=== PATIENT | male | born 1950 | race Caucasian/White ===

== ENCOUNTER → 2020-02-09 08:25 | Outpatient (BNVA) | payer MEDICARE, SELFPAY | PROVIDERS: PCP Internal Medicine Medical Oncology; Visit Provider Urology | DX: C61 Malignant neoplasm of prostate (principal); N39.41 Urge incontinence; Z79.899 Other long term (current) drug therapy | CPT/HCPCS: 99214 ==

== ENCOUNTER 2020-03-01 09:47 | Outpatient (REF) | payer MEDICARE, SELFPAY ==
[2020-03-01 10:58] LABS: MANUAL DIFF FLAG NO
[2020-03-01 11:02] LABS: Basophils Percent Auto 0.4 % (0-2); Eosinophils Absolute Auto 0.4 X10*3/uL (0.0-0.4); Eosinophils Percent Auto 5.6 % (0-4); Hematocrit 35.3 % (42-52); Hemoglobin 11.2 g/dl (14.0-18.0); Imm Gran Abs Auto 0.02 X10*3/uL (0.00-0.03); Imm Gran Pct Auto 0.3 % (0.0-0.4); Lymphocytes Absolute Auto 1.3 X10*3/uL (1.2-4.9); Lymphocytes Percent Auto 19.5 % (20-40); Mean Corpuscular HGB Conc 31.7 g/dl (31.0-36.0); Mean Corpuscular Hemoglobin 28.8 pg (27.0-33.0); Mean Corpuscular Volume 90.7 fL (80-98); Mean Platelet Volume 9.9 fL (9.4-12.4); Monocytes Absolute Auto 0.5 X10*3/uL (0.1-1.2); Monocytes Percent Auto 7.4 % (2-11); Neutrophils Absolute Auto 4.5 X10*3/uL (2.0-8.3); Neutrophils Percent Auto 66.8 % (45-73); Platelet Count 259 X10*3/uL (160-400); Red Blood Count 3.89 X10*6/uL (4.60-5.80); Red Cell Distribution Width 13.3 % (11.0-16.0); White Blood Count 6.7 X10*3/uL (4.8-10.8)
[2020-03-01 11:40] LABS: Albumin Level 4.5 g/dL (3.5-5.0); Anion Gap 14 (12-20); Blood Urea Nitrogen 21 mg/dL (9-16); Calcium 9.2 mg/dL (8.4-10.2); Carbon Dioxide 28 mmol/L (22-29); Chloride 103 mmol/L (96-108); Estimated Glomerular Filt Rate 44; Magnesium 2.4 mg/dL (1.6-2.6); Phosphorus 4.3 mg/dL (2.7-4.5); Sodium 140 mmol/L (135-145)
[2020-03-02 17:26] LABS: Calcium (PTHI) 9.8 mg/dL (8.6-10.3); PTHI 40 pg/mL (14-64)
== END 2020-03-01 09:48 | disposition home or self-care (01) ==
LOC: HO.LAB 09:47
PROVIDERS: PCP Internal Medicine Medical Oncology; Visit Provider Internal Medicine Hypertension Specialist
DX: I13.0 Hypertensive heart and chronic kidney disease with heart failure and stage 1 through stage 4 chronic kidney disease, or unspecified chronic kidney disease (principal); N18.30 Chronic kidney disease, stage 3 unspecified
CPT/HCPCS: 36415; 80051; 82040; 82310; 82565; 83735; 83970; 84100; 84520; 85025

== ENCOUNTER 2020-04-20 07:30 | Outpatient (REF) | payer MEDICARE, SELFPAY ==
[2020-04-20 08:17] LABS: MANUAL DIFF FLAG NO
[2020-04-20 08:23] LABS: Basophils Percent Auto 0.5 % (0-2); Eosinophils Absolute Auto 0.4 X10*3/uL (0.0-0.4); Eosinophils Percent Auto 4.8 % (0-4); Hematocrit 34.7 % (42-52); Hemoglobin 10.9 g/dl (14.0-18.0); Imm Gran Abs Auto 0.01 X10*3/uL (0.00-0.03); Imm Gran Pct Auto 0.1 % (0.0-0.4); Lymphocytes Absolute Auto 1.7 X10*3/uL (1.2-4.9); Lymphocytes Percent Auto 22.7 % (20-40); Mean Corpuscular HGB Conc 31.4 g/dl (31.0-36.0); Mean Corpuscular Hemoglobin 28.5 pg (27.0-33.0); Mean Corpuscular Volume 90.6 fL (80-98); Monocytes Absolute Auto 0.6 X10*3/uL (0.1-1.2); Monocytes Percent Auto 8.5 % (2-11); Neutrophils Absolute Auto 4.8 X10*3/uL (2.0-8.3); Neutrophils Percent Auto 63.4 % (45-73); Platelet Count 256 X10*3/uL (160-400); Red Blood Count 3.83 X10*6/uL (4.60-5.80); Red Cell Distribution Width 13.1 % (11.0-16.0); White Blood Count 7.5 X10*3/uL (4.8-10.8)
[2020-04-20 09:03] LABS: Alanine Aminotransferase 8 U/L (0-40); Albumin Level 4.3 g/dL (3.5-5.0); Alkaline Phosphatase 73 U/L (39-117); Anion Gap 11 (12-20); Aspartate Amino Transferase 14 U/L (5-37); Bilirubin Total 0.4 mg/dL (0.0-1.0); Blood Urea Nitrogen 25 mg/dL (9-16); Calcium 9.1 mg/dL (8.4-10.2); Carbon Dioxide 28 mmol/L (22-29); Chloride 109 mmol/L (96-108); Cholesterol 167 mg/dL; Estimated Glomerular Filt Rate 42; Glucose Fasting 103 mg/dL (60-99); HDL Cholesterol 51 mg/dL; LDL Cholesterol Calculated 92 mg/dl; Potassium 4.4 mmol/l (3.3-5.1); Sodium 144 mmol/L (135-145); Total Protein 6.8 g/dL (6.5-8.0); Triglycerides 123 mg/dL
[2020-04-20 09:33] LABS: PSA,Total (Free>4and<10) < 0.05 ng/mL (0.00-4.00)
== END 2020-04-20 07:31 | disposition home or self-care (01) ==
LOC: HO.LAB 07:30
PROVIDERS: Visit Provider Internal Medicine Medical Oncology
DX: D50.9 Iron deficiency anemia, unspecified (principal); I10 Essential (primary) hypertension; C61 Malignant neoplasm of prostate
CPT/HCPCS: 36415; 80053; 80061; 84153; 85025

== ENCOUNTER 2020-04-23 11:30 | Outpatient (REF) | payer MEDICARE, SELFPAY ==
[2020-04-23 13:34] LABS: Prostate Specific Antigen < 0.05 ng/mL (<0.05-4.0)
== END 2020-04-23 11:31 | disposition home or self-care (01) ==
LOC: HO.LAB 11:30
PROVIDERS: PCP Internal Medicine Medical Oncology; Visit Provider Urology
DX: Z85.46 Personal history of malignant neoplasm of prostate (principal); Z12.5 Encounter for screening for malignant neoplasm of prostate
CPT/HCPCS: 84153

== ENCOUNTER → 2020-05-01 13:20 | Outpatient (BNVA) | payer MEDICARE, SELFPAY | PROVIDERS: PCP Family Medicine Adult Medicine; Referring Provider Family Medicine Adult Medicine; Visit Provider Urology | DX: C61 Malignant neoplasm of prostate (principal); N39.41 Urge incontinence; Z92.3 Personal history of irradiation | CPT/HCPCS: 96402; 99212; J9217 ==

== ENCOUNTER 2020-07-23 07:26 | Outpatient (REF) | payer MEDICARE, SELFPAY ==
[2020-07-23 08:11] LABS: MANUAL DIFF FLAG NO
[2020-07-23 08:16] LABS: Basophils Percent Auto 0.6 % (0-2); Eosinophils Absolute Auto 0.3 X10*3/uL (0.0-0.4); Eosinophils Percent Auto 4.4 % (0-4); Hematocrit 37.8 % (42-52); Hemoglobin 11.6 g/dl (14.0-18.0); Imm Gran Abs Auto 0.04 X10*3/uL (0.00-0.03); Imm Gran Pct Auto 0.6 % (0.0-0.4); Lymphocytes Absolute Auto 1.5 X10*3/uL (1.2-4.9); Lymphocytes Percent Auto 21.9 % (20-40); Mean Corpuscular HGB Conc 30.7 g/dl (31.0-36.0); Mean Corpuscular Hemoglobin 27.6 pg (27.0-33.0); Mean Corpuscular Volume 89.8 fL (80-98); Mean Platelet Volume 9.7 fL (9.4-12.4); Monocytes Absolute Auto 0.5 X10*3/uL (0.1-1.2); Monocytes Percent Auto 8.1 % (2-11); Neutrophils Absolute Auto 4.3 X10*3/uL (2.0-8.3); Neutrophils Percent Auto 64.4 % (45-73); Platelet Count 252 X10*3/uL (160-400); Red Blood Count 4.21 X10*6/uL (4.60-5.80); Red Cell Distribution Width 13.3 % (11.0-16.0); White Blood Count 6.6 X10*3/uL (4.8-10.8)
[2020-07-23 08:40] LABS: Anion Gap 15 (12-20); Blood Urea Nitrogen 24 mg/dL (9-16); Calcium 9.3 mg/dL (8.4-10.2); Carbon Dioxide 28 mmol/L (22-29); Chloride 106 mmol/L (96-108); Estimated Glomerular Filt Rate 40; Potassium 5.3 mmol/L (3.3-5.1); Sodium 144 mmol/L (135-145)
[2020-07-23 09:16] LABS: Prostate Specific Antigen < 0.05 ng/mL (<0.05-4.0)
== END 2020-07-23 07:27 | disposition home or self-care (01) ==
LOC: HO.LAB 07:26
PROVIDERS: Absent Provider Urology; PCP Internal Medicine Medical Oncology; Visit Provider Internal Medicine Hypertension Specialist
DX: C61 Malignant neoplasm of prostate (principal); I13.0 Hypertensive heart and chronic kidney disease with heart failure and stage 1 through stage 4 chronic kidney disease, or unspecified chronic kidney disease; N18.9 Chronic kidney disease, unspecified; D63.1 Anemia in chronic kidney disease
CPT/HCPCS: 36415; 80051; 82310; 82565; 84153; 84520; 85025

== ENCOUNTER → 2020-08-07 08:33 | Outpatient (BNVA) | payer MEDICARE, SELFPAY | PROVIDERS: PCP Internal Medicine Medical Oncology; Visit Provider Urology | DX: N39.41 Urge incontinence (principal); C61 Malignant neoplasm of prostate | CPT/HCPCS: 51798; 99212 ==

== ENCOUNTER 2020-08-14 07:22 | Outpatient (REF) | payer MEDICARE, SELFPAY ==
[2020-08-14 08:05] LABS: MANUAL DIFF FLAG NO
[2020-08-14 08:12] LABS: Basophils Absolute Auto 0.1 X10*3/uL (0.0-0.2); Basophils Percent Auto 0.7 % (0-2); Eosinophils Absolute Auto 0.4 X10*3/uL (0.0-0.4); Eosinophils Percent Auto 5.2 % (0-4); Hematocrit 38.4 % (42-52); Imm Gran Abs Auto 0.03 X10*3/uL (0.00-0.03); Imm Gran Pct Auto 0.4 % (0.0-0.4); Lymphocytes Absolute Auto 1.4 X10*3/uL (1.2-4.9); Lymphocytes Percent Auto 19.1 % (20-40); Mean Corpuscular HGB Conc 31.3 g/dl (31.0-36.0); Mean Corpuscular Hemoglobin 28.2 pg (27.0-33.0); Mean Corpuscular Volume 90.4 fL (80-98); Mean Platelet Volume 9.9 fL (9.4-12.4); Monocytes Absolute Auto 0.5 X10*3/uL (0.1-1.2); Monocytes Percent Auto 6.5 % (2-11); Neutrophils Absolute Auto 4.9 X10*3/uL (2.0-8.3); Neutrophils Percent Auto 68.1 % (45-73); Platelet Count 247 X10*3/uL (160-400); Red Blood Count 4.25 X10*6/uL (4.60-5.80); Red Cell Distribution Width 13.3 % (11.0-16.0); White Blood Count 7.1 X10*3/uL (4.8-10.8)
[2020-08-14 08:27] LABS: Alanine Aminotransferase 11 U/L (0-40); Albumin Level 4.3 g/dL (3.5-5.0); Alkaline Phosphatase 69 U/L (39-117); Anion Gap 15 (12-20); Aspartate Amino Transferase 13 U/L (5-37); Bilirubin Total 0.2 mg/dL (0.0-1.0); Blood Urea Nitrogen 27 mg/dL (9-16); Calcium 8.9 mg/dL (8.4-10.2); Carbon Dioxide 23 mmol/L (22-29); Chloride 109 mmol/L (96-108); Cholesterol 169 mg/dL; Estimated Glomerular Filt Rate 42; Glucose Fasting 106 mg/dL (60-99); HDL Cholesterol 57 mg/dL; LDL Cholesterol Calculated 88 mg/dl; Potassium 4.8 mmol/L (3.3-5.1); Sodium 142 mmol/L (135-145); Total Protein 6.8 g/dL (6.5-8.0); Triglycerides 121 mg/dL
[2020-08-14 08:55] LABS: Prostate Specific Antigen < 0.05 ng/mL (<0.05-4.0)
== END 2020-08-14 07:23 | disposition home or self-care (01) ==
LOC: HO.LAB 07:22
PROVIDERS: PCP Internal Medicine Medical Oncology; Visit Provider Internal Medicine Medical Oncology
DX: D50.9 Iron deficiency anemia, unspecified (principal); I10 Essential (primary) hypertension; C61 Malignant neoplasm of prostate; Z12.5 Encounter for screening for malignant neoplasm of prostate
CPT/HCPCS: 36415; 80053; 80061; 84153; 85025

== ENCOUNTER 2020-10-09 07:04 | Outpatient (REF) | payer MEDICARE, SELFPAY ==
[2020-10-09 09:14] LABS: Prostate Specific Antigen < 0.05 ng/mL (<0.05-4.0)
[2020-10-15 11:27] LABS: Testosterone, Total 2 ng/dL (250-1100)
== END 2020-10-09 07:05 | disposition home or self-care (01) ==
LOC: HO.LAB 07:04
PROVIDERS: PCP Internal Medicine Medical Oncology; Visit Provider Urology
DX: C61 Malignant neoplasm of prostate (principal); E29.1 Testicular hypofunction; N40.1 Benign prostatic hyperplasia with lower urinary tract symptoms; N13.8 Other obstructive and reflux uropathy
CPT/HCPCS: 36415; 84153; 84403

== ENCOUNTER → 2020-10-25 08:54 | Outpatient (BNVA) | payer MEDICARE, SELFPAY | PROVIDERS: PCP Internal Medicine Medical Oncology; Visit Provider Urology | DX: C61 Malignant neoplasm of prostate (principal); R39.15 Urgency of urination | CPT/HCPCS: 99212 ==

== ENCOUNTER 2020-12-24 06:40 | Outpatient (REF) | payer MEDICARE, SELFPAY ==
[2020-12-24 07:00] LABS: MANUAL DIFF FLAG NO
[2020-12-24 07:16] LABS: Basophils Percent Auto 0.2 % (0-2); Eosinophils Absolute Auto 0.4 X10*3/uL (0.0-0.4); Eosinophils Percent Auto 4.6 % (0-4); Hematocrit 34.6 % (42-52); Hemoglobin 10.9 g/dl (14.0-18.0); Imm Gran Abs Auto 0.05 X10*3/uL (0.00-0.03); Imm Gran Pct Auto 0.5 % (0.0-0.4); Lymphocytes Absolute Auto 1.5 X10*3/uL (1.2-4.9); Lymphocytes Percent Auto 15.3 % (20-40); Mean Corpuscular HGB Conc 31.5 g/dl (31.0-36.0); Mean Corpuscular Hemoglobin 28.5 pg (27.0-33.0); Mean Corpuscular Volume 90.6 fL (80-98); Mean Platelet Volume 9.9 fL (9.4-12.4); Monocytes Absolute Auto 1.3 X10*3/uL (0.1-1.2); Monocytes Percent Auto 13.6 % (2-11); Neutrophils Absolute Auto 6.2 X10*3/uL (2.0-8.3); Neutrophils Percent Auto 65.8 % (45-73); Platelet Count 251 X10*3/uL (160-400); Red Blood Count 3.82 X10*6/uL (4.60-5.80); Red Cell Distribution Width 13.2 % (11.0-16.0); White Blood Count 9.5 X10*3/uL (4.8-10.8)
[2020-12-24 07:34] LABS: Alanine Aminotransferase 9 U/L (0-40); Albumin Level 4.1 g/dL (3.5-5.0); Alkaline Phosphatase 76 U/L (39-117); Anion Gap 15 (12-20); Aspartate Amino Transferase 13 U/L (5-37); Bilirubin Total 0.5 mg/dL (0.0-1.0); Blood Urea Nitrogen 33 mg/dL (9-16); Calcium 9.4 mg/dL (8.4-10.2); Carbon Dioxide 24 mmol/L (22-29); Chloride 111 mmol/L (96-108); Cholesterol 138 mg/dL; Estimated Glomerular Filt Rate 30; Glucose Fasting 106 mg/dL (60-99); HDL Cholesterol 44 mg/dL; LDL Cholesterol Calculated 61 mg/dl; Potassium 5.3 mmol/L (3.3-5.1); Sodium 145 mmol/L (135-145); Total Protein 6.6 g/dL (6.5-8.0); Triglycerides 166 mg/dL
[2020-12-24 08:08] LABS: Prostate Specific Antigen < 0.05 ng/mL (<0.05-4.0)
== END 2020-12-24 06:41 | disposition home or self-care (01) ==
LOC: HO.LAB 06:40
PROVIDERS: PCP Internal Medicine Medical Oncology; Visit Provider Internal Medicine Medical Oncology
DX: Z12.5 Encounter for screening for malignant neoplasm of prostate (principal); C61 Malignant neoplasm of prostate; D50.9 Iron deficiency anemia, unspecified; E66.3 Overweight
CPT/HCPCS: 36415; 80053; 80061; 84153; 85025

== ENCOUNTER 2020-12-31 06:45 | Outpatient (REF) | payer MEDICARE, SELFPAY ==
[2020-12-31 07:56] LABS: Anion Gap 15 (12-20); Blood Urea Nitrogen 22 mg/dL (9-16); Calcium 9.2 mg/dL (8.4-10.2); Carbon Dioxide 24 mmol/L (22-29); Chloride 109 mmol/L (96-108); Estimated Glomerular Filt Rate 33; Potassium 5.2 mmol/L (3.3-5.1); Sodium 143 mmol/L (135-145)
== END 2020-12-31 06:46 | disposition home or self-care (01) ==
LOC: HO.LAB 06:45
PROVIDERS: PCP Internal Medicine Medical Oncology; Visit Provider Internal Medicine Hypertension Specialist
DX: I12.9 Hypertensive chronic kidney disease with stage 1 through stage 4 chronic kidney disease, or unspecified chronic kidney disease (principal); N18.31 Chronic kidney disease, stage 3a
CPT/HCPCS: 36415; 80051; 82310; 82565; 84520

== ENCOUNTER 2021-01-15 11:57 | Outpatient (REF) | payer MEDICARE, SELFPAY ==
[2021-01-15 14:16] LABS: Prostate Specific Antigen < 0.05 ng/mL (<0.05-4.0)
[2021-01-20 22:27] LABS: Testosterone, Total <1 ng/dL (250-1100)
== END 2021-01-15 11:58 | disposition home or self-care (01) ==
LOC: HO.LAB 11:57
PROVIDERS: PCP Internal Medicine Medical Oncology; Visit Provider Urology
DX: Z12.5 Encounter for screening for malignant neoplasm of prostate (principal); C61 Malignant neoplasm of prostate
CPT/HCPCS: 36415; 84153; 84403

== ENCOUNTER 2021-01-21 14:14 | Outpatient (REF) | payer MEDICARE, SELFPAY ==
--- NOTE | ~2021-01-21 | US_ITS ---
EXAMINATION: US RETROPERITONEAL LIMITED (RENAL ONLY) CLINICAL INFORMATION: Chronic kidney disease, stage 3. COMPARISON: Renals only ultrasound dated 06/13/2019. CT abdomen and pelvis with contrast dated 01/27/2012. TECHNIQUE: Real-time imaging of the kidneys. FINDINGS: RIGHT KIDNEY: 10.1 x 4.9 x 5.3 cm (SAG x AP x TRV). The kidney is normal in size, contour, and echogenicity. Renal cortical thickness is normal. No renal calculi or hydronephrosis. There are multiple anechoic cysts. The largest cyst measures 3.8 x 3.3 x 2.3 cm. Is mild pelvic fullness. LEFT KIDNEY: 9.4 x 4.6 x 5.5 cm (SAG x AP x TRV). The kidney is normal in size, contour, and echogenicity. Renal cortical thickness is normal. No renal calculi or hydronephrosis. There are multiple anechoic cyst. The largest cyst midpole measures 2.6 x 2.1 x 2.4 cm. There is mild pelvic fullness versus hydronephrosis. US/US renal BI IMPRESSION: Mild bilateral pelvic fullness. Multiple anechoic renal cysts.
== END 2021-01-21 14:15 | disposition home or self-care (01) ==
LOC: HO.US 14:14
PROVIDERS: Visit Provider Psychiatry & Neurology Neurology
DX: N18.32 Chronic kidney disease, stage 3b (principal)
CPT/HCPCS: 76775

== ENCOUNTER 2021-01-25 06:41 | Outpatient (REF) | payer MEDICARE, SELFPAY ==
[2021-01-25 08:42] LABS: Prostate Specific Antigen < 0.05 ng/mL (<0.05-4.0)
[2021-01-30 14:06] LABS: Testosterone, Total 8 ng/dL (250-1100)
== END 2021-01-25 06:42 | disposition home or self-care (01) ==
LOC: HO.LAB 06:41
PROVIDERS: PCP Internal Medicine Medical Oncology; Visit Provider Urology
DX: Z12.5 Encounter for screening for malignant neoplasm of prostate (principal); C61 Malignant neoplasm of prostate
CPT/HCPCS: 36415; 84153; 84403

== ENCOUNTER → 2021-01-29 09:24 | Outpatient (BNVA) | payer MEDICARE, SELFPAY | PROVIDERS: PCP Internal Medicine Medical Oncology; Visit Provider Urology | DX: C61 Malignant neoplasm of prostate (principal); N39.41 Urge incontinence | CPT/HCPCS: Q3014 ==

== ENCOUNTER 2021-02-19 11:34 | Emergency (ER) | payer MEDICARE, SELFPAY ==
--- NOTE | 2021-02-19 | ECG_ITS ---
Test Reason : dizziness Blood Pressure : / mmHG Vent. Rate : 113 BPM Atrial Rate : 113 BPM P-R Int : 120 ms QRS Dur : 086 ms QT Int : 328 ms P-R-T Axes : 054 063 016 degrees QTc Int : 449 ms Sinus tachycardia RSR' or QR pattern in V1 suggests right ventricular conduction delay Nonspecific ST abnormality Abnormal ECG Heart rate has increased Referred By: Generic ED Physician Electronically Signed By:NGA MONTANA MD
--- NOTE | 2021-02-19 | ECG_ITS ---
Test Reason : WEAKNESS Blood Pressure : / mmHG Vent. Rate : 112 BPM Atrial Rate : 112 BPM P-R Int : 122 ms QRS Dur : 090 ms QT Int : 330 ms P-R-T Axes : 118 125 162 degrees QTc Int : 450 ms Suspect limb lead reversal, interpretation assumes no reversal Sinus tachycardia Left posterior fascicular block RSR' or QR pattern in V1 suggests right ventricular conduction delay Abnormal ECG likely limb lead reversal Clinical Correlation Advised Referred By: Generic ED Physician Electronically Signed By:NGA MONTANA MD
--- NOTE | ~2021-02-19 | MR_ITS ---
EXAMINATION: MR BRAIN WITHOUT CONTRAST CLINICAL INFORMATION: Ataxia for 4 days. COMPARISON: CT head from 02/19/2021. TECHNIQUE: MRI of the brain was obtained using routine sequences without contrast. FINDINGS: No focal restricted diffusion is demonstrated to suggest acute or subacute cerebral ischemia. No evidence of acute or chronic hemorrhagic products on heme-sensitive imaging. Scattered periventricular, deep white matter, and brainstem T2 FLAIR hyperintensities consistent with moderate underlying microangiopathy. Proportional prominence of the ventricles and sulcal spaces without evidence of obstructive hydrocephalus. No abnormal mass effect. No midline shift. Normal appearance of the pituitary gland. Normal positioning of the cerebellar tonsils. Normal arterial and venous vascular flow voids are present. Normal, homogeneous marrow signal. Moderate mucosal thickening of the paranasal sinuses. No signal abnormalities within the mastoids. MR/MR head/brain wo con IMPRESSION: 1. No acute intracranial abnormalities. 2. Moderate underlying microangiopathy and generalized cerebral volume loss.
--- NOTE | ~2021-02-19 | XR_ITS ---
EXAMINATION: XR ABDOMEN KUB CLINICAL INDICATION: Possible metal implant. Prior to MRI. COMPARISON: 01/27/2012 TECHNIQUE: AP view of the abdomen. FINDINGS: The bowel gas pattern is normal with no evidence of ileus or obstruction. No unusual soft tissue calcifications are noted. A single metallic additional marker is evident in the region of the prostate gland. No additional metallic foreign bodies are identified. Lung bases are clear. Degenerative spondylosis is present in the lumbar spine. XR/XR KUB IMPRESSION: Single metallic fiducial marker prostate gland is not a contraindication to MRI. No other metallic foreign bodies are identified.
--- NOTE | ~2021-02-19 | CT_ITS ---
EXAMINATION: CT HEAD WITHOUT CONTRAST CLINICAL INFORMATION: Ataxia x 4 days. COMPARISON: None TECHNIQUE: Contiguous axial imaging was performed from the skull base to vertex without intravenous administration of contrast. This CT examination was performed using dose optimization techniques as appropriate, variously including the following: *Automated exposure control *Adjustment of mA and/or kV according to patient size (this includes techniques or standardized protocols for targeted exams where dose is matched to indication/reason for exam; i.e. extremities or head) *Use of iterative reconstruction technique DLP: 711 mGy-cm FINDINGS: There is no evidence of acute intracranial hemorrhage or territorial infarction. No abnormal mass effect or midline shift is seen. [place] to white matter differentiation is well preserved. No extra-axial fluid collections are identified. The ventricles are normal in size. There is no abnormal attenuation within the brain parenchyma. The osseous structures and soft tissues are normal. The mastoid air cells and visualized portions of the paranasal sinuses are well aerated. CT/CT head/brain wo con IMPRESSION: No acute intracranial process seen.
[2021-02-19 12:31] VITALS: BP 113/52; PULSE 102; RESP 18; TEMP 36.8; O2SAT 94; BMI 24.3
--- NOTE | 2021-02-19 13:51 | ED_ITS ---
HPI - General Adult General Chief complaint: General Medical Stated complaint: Weakness/incontinence Time Seen by Provider: 02/19/21 13:31 Source: patient Mode of arrival: ambulatory Limitations: no limitations History of Present Illness HPI narrative: 70-year-old male who presents emergency department for evaluati on of dizziness, ataxia and falling. The patient states that Thursday morning when he got out of bed and he stood up he states he felt off balance. He states that he then fell to the floor. He did not hit his head or sustain any injury. He states that that happened to him at least 2 times on Thursday. The next day on Thursday again this happened 2-3 times that he would stand up, feel off balance and fall. He also states he feels off balance when he walks around he is having difficulty walking. He states that he has macular degeneration with decreased vision both eyes but he believes that his right eye vision is decreased more over the past several days. He denied headache, nausea, vo miting, numbness or weakness of his extremities. He denied fever but he did experience chills over the past 1-2 days. He denied cough, chest pain, shortness of breath, dyspnea on exertion. He states that he has incontinence and that he always has burning with urination, he believes that the burning with urination is worse Then his baseline. Related Data Home Medications Medication Instructions Recorded Confirmed amlodipine 5 mg tablet 1 tab PO DAILY 02/19/21 simvastatin 10 mg tablet 1 tab PO BEDTIME 02/19/21 Previous Rx's Medication Instructions Recorded cephalexin 500 mg tablet 500 mg PO TID 7 Days #21 tab 02/19/21 Allergies Allergy/AdvReac Type Severity Reaction Status Date / Time No Known Allergies Allergy Verified 02/19/21 12:30 [No Known Allergies*] Review of Systems Review of Systems: Yes all other systems are reviewed and are negative PMFSH Past Medical History [facility] Narrative: Social history: The patient is , his shelby says here in the emergency department with him. He Smokes cigarettes occasionally. States that he is a former drinker any stop drinking alcohol 1 year prior. He denies drug use. Medical History Hematuria Kidney disease Macular degeneration Prostate cancer Urgency incontinence Surgical History History of back surgery History of penile implant History of prostate surgery Social History Social History Alcohol intake: former Smoked in Last 30 Days: No Use of substances other than those prescribed or required for medical reasons: No Advance Directives: No Advance Directives Information Provided: No Physical Exam Vital Signs: Vital Signs: Last Vital Signs Temp 98.3 F 02/19/21 12:31 Pulse 101 H 02/19/21 15:34 Resp 16 02/19/21 15:34 BP 126/62 02/19/21 15:34 Pulse Ox 94 02/19/21 15:34 Body Mass Index 24.3 Const: General: cooperative and no acute distress Orientation/consciousness: oriented to person and oriented to place Limitations: no limitations HENMT: Head: Yes normal to inspection, Yes normocephalic and Yes atraumatic Ears: external ears normal General nose exam: Normal external nose present Face and sinus: Yes normal facial exam Mouth: Normal oral and palatal mucosa present Throat: Yes posterior oropharynx normal Eyes: General: appearance normal, both eyes and all related structures Pupils: Equal, round and reactive pupils present EOM: EOMs intact bilaterally and Nystagmus present ( Lateral) Neck: Neck: Yes normal visual inspection, Yes no lymphadenopathy, Yes trachea midline and Yes supple Chest: Chest palpation & inspection: normal inspection of the chest and normal palpation of entire chest wall Resp: Effort & Inspection: normal respiratory effort and able to speak in complete sentences Auscultation: clear to auscultation bilaterally Cardio: Rate: regular rate Rhythm: regular rhythm Heart sounds: S1 normal heart sound present, S2 normal heart sound present and no murmurs GI: Inspection: Yes normal to inspection Palpation (GI): Soft to palpation, nontender and no guarding Auscultation: normal bowel sounds : General: Yes no CVA tenderness Back/Spine/Pelvis: Back: no CVA tenderness Skin: General skin exam: no rashes or lesions noted Neuro: General: oriented to person and oriented to place Cranial nerves: Yes CN's II-XII intact bilaterally, Yes Equal, round and reactive pupils present and Yes Nystagmus present ( Lateral) Cognition (Neuro): normal cognition Motor exam (neuro): 5/5 motor strength present throughout Coordination: [id number] test normal, [id number] test normal, does not sway with eyes open, Romberg test positive and Normal rapid alternating movements of the distal upper extremity present (Neuro) Romberg Test: Positive Extrem: General: Yes normal to inspection Psych: Appearance: grossly normal Speech and movement: Normal speech and movement present Affect: normal affect Attitude: cooperative Thought process: Normal thought process present Thought content: Normal thought content present Course Course Course Narrative: 70-year-old male who presents emergency department for evaluation ataxia, dizziness, frequent falling x4 days. He also has noted decreased vision in his right eye compared to his baseline macular degeneration of both eyes. he has urinary incontinence and chronic dysuria but he states that his dysuria is worse. Vital signs revealed an elevated pulse of 102 otherwise was unremarkable. Physical examination did reveal lateral nystagmus. The patient did have good [id number] to finger, odsb-[id number] and rapid alternating movements of the upper extremity. He did have a positive Romberg test and was not able to to walk secondary to feeling as if he was going to fall over. the differential includes was not limited to cerebellar stroke, positional vertigo, electrolyte abnormality, anemia. I ordered a CBC, CMP, CK, troponin, lactate, urinalysis obtained by straight catheterization, bladder scan, and a CT scan of the head without contrast. Patient was ordered to get normal saline x1 L. 1951: Laboratory evaluation: [place] [address]. Patient had anemia with an H&H of 9.9 and 31.2. This appears to be chronic. Patient's BUN creatinine were elevated at 26 and 2.16, this patient be chronic as well. The patient's high sensitivity troponin I was detectable but not elevated at 16. patient's urinalysis revealed 2+ blood, 2+ protein, 2+ le ukocyte esterase and negative nitrates. Microscopic revealed 9 RBCs, up to 150 WBCs and 1+ bacteria. CT scan of the brain was unremarkable. MRI of the brain revealed no cerebellar stroke and no other acute abnormality to explain the patient's symptoms. The patient was able to ambulate here in the emergency department without any ataxia. At this time I suspect that his lightheadedness and dizziness is secondary to positional vertigo and may also be secondary to urinary tract infection. The patient was treated with ceftriaxone 1 g IV. He will be started on Keflex 500 mg 3 times a day for 7 days to treat his urinary tract infection. He is also started on meclizine 25 mg 3 times a day as needed for dizziness. He will be discharged home with printed and verbal instructions. Medical Decision Making Lab Data Result diagrams: 02/19/21 14:37 02/19/21 14:37 Labs: Lab Results 02/19/21 02/19/21 02/19/21 Range/Units 14:37 14:37 14:37 WBC 12.7 H (4.8-10.8) X10*3/uL RBC 3.51 L (4.60-5.80) X10*6/uL Hgb 9.9 L (14.0-18.0) g/dl Hct 31.2 L (42-52) % MCV 88.9 (80-98) fL MCH 28.2 (27.0-33.0) pg MCHC 31.7 (31.0-36.0) g/dl RDW 14.4 (11.0-16.0) % Plt Count 193 (160-400) X10*3/uL MPV 9.9 (9.4-12.4) fL Immature Gran % (Auto) 0.6 H (0.0-0.4) % Neut % (Auto) 83.0 H (45-73) % Lymph % (Auto) 8.1 L (20-40) % [place] % (Auto) 8.1 (2-11) % Eos % (Auto) 0.0 (0-4) % Baso % (Auto) 0.2 (0-2) % Lymph # (Auto) 1.0 L (1.2-4.9) X10*3/uL [place] # (Auto) 1.0 (0.1-1.2) X10*3/uL Eos # (Auto) 0.0 (0.0-0.4) X10*3/uL Baso # (Auto) 0.0 (0.0-0.2) X10*3/uL Abs Immat Gran (auto) 0.08 H (0.00-0.03) X10*3/uL Absolute Neuts (auto) 10.5 H (2.0-8.3) X10*3/uL Absolute Nucleated RBC 0.000 (0.0-0.012) X10*3/uL Nucleated RBC % (auto) 0.0 (0.0-0.2) /100WBC Sodium 140 (135-145) mmol/L Potassium 4.8 (3.3-5.1) mmol/L Chloride 107 (96-108) mmol/L Carbon Dioxide 23 (22-29) mmol/L Anion Gap 15 (12-20) BUN 26 H (9-16) mg/dL Creatinine 2.16 H (0.5-1.4) mg/dL Estim Creat Clear Calc 35.9 Estimated GFR 30 Random Glucose 117 H (60-115) mg/dL Lactic Acid 1.3 (0.5-2.0) mmol/L Calcium 9.1 (8.4-10.2) mg/dL Total Bilirubin 0.5 (0.0-1.0) mg/dL AST 21 D (5-37) U/L ALT 11 (0-40) U/L Alkaline Phosphatase 59 D (39-117) U/L Total Creatine Kinase 1113 H (38-174) U/L Troponin I High Sens (<3.5-35.0) ng/L Total Protein 6.5 (6.5-8.0) g/dL Albumin 4.1 (3.5-5.0) g/dL Lipase 11 (8-78) U/L Urine Color Urine Appearance Urine pH (5.0-8.0) Ur Specific [place] (1.005-1.025) Urine Protein (NEG-TRACE) MG/DL Urine Glucose (UA) (NEG) MG/DL Urine Ketones (NEG) MG/DL Urine Blood (NEG) Urine Nitrite (NEG) Ur Leukocyte Esterase (NEG) Urine RBC (0) /HPF Urine WBC (0-4) /HPF Ur Squamous Epith Cells /LPF Amorphous Sediment /LPF Urine Bacteria /LPF Urine Mucus /LPF COVID-19 (SHARAD) (Negative) COVID-19 Clin Com 02/19/21 02/19/21 02/19/21 Range/Units 14:37 14:37 Unknown WBC (4.8-10.8) X10*3/uL RBC (4.60-5.80) X10*6/uL Hgb (14.0-18.0) g/dl Hct (42-52) % MCV (80-98) fL MCH (27.0-33.0) pg MCHC (31.0-36.0) g/dl RDW (11.0-16.0) % Plt Count (160-400) X10*3/uL MPV (9.4-12.4) fL Immature Gran % (Auto) (0.0-0.4) % Neut % (Auto) (45-73) % Lymph % (Auto) (20-40) % [place] % (Auto) (2-11) % Eos % (Auto) (0-4) % Baso % (Auto) (0-2) % Lymph # (Auto) (1.2-4.9) X10*3/uL [place] # (Auto) (0.1-1.2) X10*3/uL Eos # (Auto) (0.0-0.4) X10*3/uL Baso # (Auto) (0.0-0.2) X10*3/uL Abs Immat Gran (auto) (0.00-0.03) X10*3/uL Absolute Neuts (auto) (2.0-8.3) X10*3/uL Absolute Nucleated RBC (0.0-0.012) X10*3/uL Nucleated RBC % (auto) (0.0-0.2) /100WBC Sodium (135-145) mmol/L Potassium (3.3-5.1) mmol/L Chloride (96-108) mmol/L Carbon Dioxide (22-29) mmol/L Anion Gap (12-20) BUN (9-16) mg/dL Creatinine (0.5-1.4) mg/dL Estim Creat Clear Calc Estimated GFR Random Glucose (60-115) mg/dL Lactic Acid (0.5-2.0) mmol/L Calcium (8.4-10.2) mg/dL Total Bilirubin (0.0-1.0) mg/dL AST (5-37) U/L ALT (0-40) U/L Alkaline Phosphatase (39-117) U/L Total Creatine Kinase (38-174) U/L Troponin I High Sens 16.0 (<3.5-35.0) ng/L Total Protein (6.5-8.0) g/dL Albumin (3.5-5.0) g/dL Lipase (8-78) U/L Urine Color YELLOW Urine Appearance CLOUDY Urine pH 6.0 (5.0-8.0) Ur Specific [place] 1.025 (1.005-1.025) Urine Protein 2+ H (NEG-TRACE) MG/DL Urine Glucose (UA) NEG (NEG) MG/DL Urine Ketones NEG (NEG) MG/DL Urine Blood 2+ H (NEG) Urine Nitrite NEG (NEG) Ur Leukocyte Esterase 2+ H (NEG) Urine RBC 5-9 H (0) /HPF Urine WBC 76-150 H (0-4) /HPF Ur Squamous Epith Cells TRACE /LPF Amorphous Sediment 2+ /LPF Urine Bacteria 1+ /LPF Urine Mucus 2+ /LPF COVID-19 (SHARAD) Negative (Negative) COVID-19 Clin Com See Note ECG Data Interpretation: 1254: Sinus tachycardia with a rate of 113, normal NV interval, QRS duration and QTC interval, no ST segment elevation, no ST segment depression, no significant T-wave abnormalities, no PVCs, no PACs. Discharge Plan Discharge Clinical Impression: Benign paroxysmal positional vertigo, Urinary tract infection, Acute dehydration Instructions: Benign Paroxysmal Positional Vertigo (ED), Urinary Tract Infection in Older Adults (ED) Additional Instructions: Your laboratory evaluation revealed mild anemia and abnormal kidney numbers however these are consistent with baseline values and not the cause of your symptoms. The CT scan of your brain was normal. The MRI of her brain revealed no stroke in the cerebellum or other abnormality to explain your symptoms. Your urine did reveal a significant amount of white blood cells and bacteria in your urine suggested he have a urine infection. You received ceftriaxone 1 g IV, this is an antibiotic that lasts for 24 hours and would treat most urinary tract infections. I am starting you on Keflex (cephalexin) 500 mg, 1 pill 3 times a day (every 6 hours while you are awake) for 7 days to treat your urine infection take your ne xt dose tomorrow afternoon. Take Dramamine (meclizine) 25 mg pills, 1 pill every 6 hours as needed for dizziness. Follow-up with your doctor in 2 days. Please return to the emergency department if your symptoms get worse or if you develop any symptoms that are concerning to you. Prescriptions: New cephalexin 500 mg tablet 500 mg PO TID 7 Days Qty: 21 RF: 0 No Action simvastatin 10 mg tablet 1 tab PO BEDTIME RF: 0 amlodipine 5 mg tablet 1 tab PO DAILY RF: 0
[2021-02-19 14:43] LABS: MANUAL DIFF FLAG NO
[2021-02-19 14:50] LABS: Basophils Percent Auto 0.2 % (0-2); Hematocrit 31.2 % (42-52); Hemoglobin 9.9 g/dl (14.0-18.0); Imm Gran Abs Auto 0.08 X10*3/uL (0.00-0.03); Imm Gran Pct Auto 0.6 % (0.0-0.4); Lymphocytes Percent Auto 8.1 % (20-40); Mean Corpuscular HGB Conc 31.7 g/dl (31.0-36.0); Mean Corpuscular Hemoglobin 28.2 pg (27.0-33.0); Mean Corpuscular Volume 88.9 fL (80-98); Mean Platelet Volume 9.9 fL (9.4-12.4); Monocytes Percent Auto 8.1 % (2-11); Neutrophils Absolute Auto 10.5 X10*3/uL (2.0-8.3); Platelet Count 193 X10*3/uL (160-400); Red Blood Count 3.51 X10*6/uL (4.60-5.80); Red Cell Distribution Width 14.4 % (11.0-16.0); White Blood Count 12.7 X10*3/uL (4.8-10.8)
[2021-02-19 14:57] LABS: Lactic Acid 1.3 mmol/L (0.5-2.0)
[2021-02-19 15:09] LABS: Alanine Aminotransferase 11 U/L (0-40); Albumin Level 4.1 g/dL (3.5-5.0); Alkaline Phosphatase 59 U/L (39-117); Anion Gap 15 (12-20); Aspartate Amino Transferase 21 U/L (5-37); Bilirubin Total 0.5 mg/dL (0.0-1.0); Blood Urea Nitrogen 26 mg/dL (9-16); Calcium 9.1 mg/dL (8.4-10.2); Carbon Dioxide 23 mmol/L (22-29); Chloride 107 mmol/L (96-108); Creatinine Clr Calc Pharmacy 35.9; Estimated Glomerular Filt Rate 30; Glucose Random 117 mg/dL (60-115); Lipase 11 U/L (8-78); Potassium 4.8 mmol/L (3.3-5.1); Sodium 140 mmol/L (135-145); Total Protein 6.5 g/dL (6.5-8.0)
[2021-02-19 15:29] LABS: COVID-19 Test Negative (Negative)
[2021-02-19 15:34] VITALS: BP 126/62; PULSE 101; RESP 16; O2SAT 94
[2021-02-19] MEDS: 0.9 % Sodium Chloride 1,000 ML 999 ML IV (15:46)
--- NOTE | 2021-02-19 17:04 | PC.NURSE ---
Keshav presents to the ED alert and oriented x 3 for evaluation of frequent falls in the past couple of weeks. Keshav describes the falls as being a result of feeling lightheaded or dizzy and my legs just don't feel like they're working right. He denies headaches. Speech is clear and appropriate. He denies any difficulty swallowing. He is oriented x 3, there is no facial droop or unilateral weakness. After infusing 1L NS via peripheral IV and waiting 20 minutes I [id number] Keshav. Approximately 80cc urine were noted on bladder scan. Per request MD Potts I placed a straight cath to drain the bladder and obtained approximately 100cc clear yellow urine. pt tolerated this procedure well. I also performed an MRI screening with Keshav. At that time milieu technician came to ED to inquire about the possibility of Keshav having a penile implant - under summary in [employer] Keshav' chart cites him having a penile implant. The pt denies this, however RAD requests a plain film to rule this out. The plan film has been obtained and no penile implant noted. Pt to MRI via janice at this time.
[2021-02-19 18:09] LABS: Appearance Urine CLOUDY; Color Urine YELLOW; Glucose Urine UA NEG (NEG); Leukocyte Esterase Urine 2+ (NEG); Nitrite Urine NEG (NEG); Specific Gravity - Urine 1.025 (1.005-1.025); UACC Culture Trigger YES; Urine Blood 2+ (NEG); Urine Ketones NEG (NEG); Urine Protein 2+ MG/DL (NEG-TRACE)
[2021-02-19 18:18] LABS: Amorphous Sediment Urine 2+ /LPF; Bacteria Urine 1+ /LPF; Mucus Urine 2+ /LPF; Squamous Epithelial Cell Urine TRACE /LPF
[2021-02-19] MEDS: cefTRIAXone sodium 1 GM in 0.9 % Sodium Chloride 50 ML IV (20:00)
[2021-02-19] MEDS: Meclizine HCl 25 MG TABLET PO (20:09)
== END 2021-02-19 20:55 | disposition home or self-care (01) ==
PROVIDERS: Emergency Provider Emergency Medicine Emergency Medical Services; PCP Internal Medicine Medical Oncology
DX: N39.0 Urinary tract infection, site not specified (principal); E86.0 Dehydration; H81.10 Benign paroxysmal vertigo, unspecified ear; R29.6 Repeated falls; D64.9 Anemia, unspecified; Z20.822 Contact with and (suspected) exposure to COVID-19
CPT/HCPCS: 36415; 51798; 70450; 70551; 74018; 80053; 81001; 82550; 83605; 83690; 84484; 85025; 87086; 87088; 87186; 87635; 93005; 96361; 96365; 99285; J0696

== ENCOUNTER 2021-03-29 10:40 | Outpatient (REF) | payer MEDICARE, SELFPAY ==
[2021-03-29 12:07] LABS: Anion Gap 13 (12-20); Blood Urea Nitrogen 26 mg/dL (9-16); Calcium 9.6 mg/dL (8.4-10.2); Carbon Dioxide 26 mmol/L (22-29); Chloride 106 mmol/L (96-108); Estimated Glomerular Filt Rate 38; Sodium 140 mmol/L (135-145)
== END 2021-03-29 10:41 | disposition home or self-care (01) ==
LOC: HO.LAB 10:40
PROVIDERS: PCP Internal Medicine Medical Oncology; Visit Provider Internal Medicine Hypertension Specialist
DX: N18.32 Chronic kidney disease, stage 3b (principal)
CPT/HCPCS: 36415; 80051; 82310; 82565; 84520

== ENCOUNTER 2021-04-19 10:54 | Outpatient (REF) | payer MEDICARE, SELFPAY ==
[2021-04-19 13:09] LABS: Prostate Specific Antigen < 0.05 ng/mL (<0.05-4.0)
[2021-04-25 11:20] LABS: Testosterone, Total 12 ng/dL (250-1100)
== END 2021-04-19 10:55 | disposition home or self-care (01) ==
LOC: HO.LAB 10:54
PROVIDERS: PCP Internal Medicine Medical Oncology; Visit Provider Urology
DX: Z12.5 Encounter for screening for malignant neoplasm of prostate (principal); C61 Malignant neoplasm of prostate
CPT/HCPCS: 36415; 84153; 84403

== ENCOUNTER → 2021-05-08 10:15 | Outpatient (BNVA) | payer MEDICARE, SELFPAY | PROVIDERS: PCP Internal Medicine Medical Oncology; Visit Provider Urology | DX: Z13.89 Encounter for screening for other disorder (principal) | CPT/HCPCS: Q3014 ==

== ENCOUNTER 2021-05-22 10:03 | Outpatient (REF) | payer MEDICARE, SELFPAY ==
[2021-05-22 10:23] LABS: MANUAL DIFF FLAG NO
[2021-05-22 11:04] LABS: Basophils Percent Auto 0.5 % (0-2); Eosinophils Absolute Auto 0.2 X10*3/uL (0.0-0.4); Eosinophils Percent Auto 2.9 % (0-4); Hematocrit 35.1 % (42.0-52.0); Hemoglobin 11.2 g/dl (14.0-18.0); Imm Gran Abs Auto 0.04 X10*3/uL (0.00-0.03); Imm Gran Pct Auto 0.5 % (0.0-0.4); Lymphocytes Absolute Auto 1.5 X10*3/uL (1.2-4.9); Lymphocytes Percent Auto 18.9 % (20-40); Mean Corpuscular HGB Conc 31.9 g/dl (31.0-36.0); Mean Corpuscular Hemoglobin 29.4 pg (27.0-33.0); Mean Corpuscular Volume 92.1 fL (80.0-98.0); Mean Platelet Volume 10.1 fL (9.4-12.4); Monocytes Absolute Auto 0.6 X10*3/uL (0.1-1.2); Monocytes Percent Auto 7.4 % (2-11); Neutrophils Absolute Auto 5.6 x10*3/uL (2.0-8.3); Neutrophils Percent Auto 69.8 % (45-73); Platelet Count 253 X10*3/uL (160-400); Red Blood Count 3.81 X10*6/uL (4.60-5.80)
[2021-05-22 11:40] LABS: Alanine Aminotransferase 10 U/L (0-40); Albumin Level 4.2 g/dL (3.5-5.0); Alkaline Phosphatase 62 U/L (39-117); Anion Gap 11 (12-20); Aspartate Amino Transferase 13 U/L (5-37); Bilirubin Total 0.3 mg/dL (0.0-1.0); Blood Urea Nitrogen 25 mg/dL (9-16); Calcium 9.6 mg/dL (8.4-10.2); Carbon Dioxide 28 mmol/L (22-29); Chloride 108 mmol/L (96-108); Cholesterol 161 mg/dL; Estimated Glomerular Filt Rate 37; Glucose Fasting 100 mg/dL (60-99); HDL Cholesterol 53 mg/dL; LDL Cholesterol Calculated 76 mg/dl; Potassium 4.8 mmol/L (3.3-5.1); Sodium 142 mmol/L (135-145); Total Protein 6.7 g/dL (6.5-8.0); Triglycerides 160 mg/dL
[2021-05-22 11:48] LABS: Ferritin 26 ng/mL (20-250); Prostate Specific Antigen < 0.05 ng/mL (<0.05-4.0)
== END 2021-05-22 10:04 | disposition home or self-care (01) ==
LOC: HO.LAB 10:03
PROVIDERS: PCP Internal Medicine Medical Oncology; Visit Provider Internal Medicine Medical Oncology
DX: Z12.5 Encounter for screening for malignant neoplasm of prostate (principal); I10 Essential (primary) hypertension; C61 Malignant neoplasm of prostate; D50.9 Iron deficiency anemia, unspecified; E66.3 Overweight
CPT/HCPCS: 36415; 80053; 80061; 82728; 84153; 85025

== ENCOUNTER → 2021-06-18 08:53 | Outpatient (BNVA) | payer MEDICARE, SELFPAY | PROVIDERS: PCP Internal Medicine Medical Oncology; Visit Provider Surgery Vascular Surgery | DX: I73.9 Peripheral vascular disease, unspecified (principal) | CPT/HCPCS: 99202 ==

== ENCOUNTER 2021-07-10 13:31 | Outpatient (REF) | payer MEDICARE, SELFPAY ==
--- NOTE | ~2021-07-10 | US_ITS ---
EXAMINATION: ANKLE-BRACHIAL INDICES SINGLE LEVEL PULSE VOLUME RECORDING ARTERIAL DUPLEX BILATERAL LEGS CLINICAL INFORMATION: Peripheral vascular disease COMPARISON: None TECHNIQUE: Ankle-brachial indices and PVR at the ankle were obtained. Duplex Doppler of the bilateral lower extremity arterial systems was performed. FINDINGS: RIGHT: Ankle-brachial index: 1.31 PVR: Abnormal Diffuse atherosclerotic disease. Common femoral: PSV 107 cm/s. Triphasic waveform. Deep femoral: PSV 127 cm/s. Triphasic waveform. Proximal superficial femoral: PSV 135 cm/s. Triphasic waveform. Mid superficial femoral: PSV 124 cm/s. Triphasic waveform. Distal superficial femoral: PSV 130 cm/s. Triphasic waveform. Popliteal: PSV 75 cm/s. Triphasic waveform. Posterior tibial: PSV 138 cm/s. Biphasic waveform. LEFT: Ankle-brachial index: 1.15 PVR: Normal Diffuse atherosclerotic disease. Common femoral: PSV 108 cm/s. Biphasic waveform. Deep femoral: PSV 101 cm/s. Biphasic waveform. Proximal superficial femoral: PSV 80 cm/s. Triphasic waveform. Mid superficial femoral: PSV 127 cm/s. Triphasic waveform. Distal superficial femoral: PSV 102 cm/s. Triphasic waveform. Popliteal: PSV 42 cm/s. Triphasic waveform. Posterior tibial: PSV 85 cm/s. Triphasic waveform. US/US RAUL complete IMPRESSION: No evidence of hemodynamically significant peripheral arterial disease.
--- NOTE | ~2021-07-10 | US_ITS ---
EXAMINATION: ANKLE-BRACHIAL INDICES SINGLE LEVEL PULSE VOLUME RECORDING ARTERIAL DUPLEX BILATERAL LEGS CLINICAL INFORMATION: Peripheral vascular disease COMPARISON: None TECHNIQUE: Ankle-brachial indices and PVR at the ankle were obtained. Duplex Doppler of the bilateral lower extremity arterial systems was performed. FINDINGS: RIGHT: Ankle-brachial index: 1.31 PVR: Abnormal Diffuse atherosclerotic disease. Common femoral: PSV 107 cm/s. Triphasic waveform. Deep femoral: PSV 127 cm/s. Triphasic waveform. Proximal superficial femoral: PSV 135 cm/s. Triphasic waveform. Mid superficial femoral: PSV 124 cm/s. Triphasic waveform. Distal superficial femoral: PSV 130 cm/s. Triphasic waveform. Popliteal: PSV 75 cm/s. Triphasic waveform. Posterior tibial: PSV 138 cm/s. Biphasic waveform. LEFT: Ankle-brachial index: 1.15 PVR: Normal Diffuse atherosclerotic disease. Common femoral: PSV 108 cm/s. Biphasic waveform. Deep femoral: PSV 101 cm/s. Biphasic waveform. Proximal superficial femoral: PSV 80 cm/s. Triphasic waveform. Mid superficial femoral: PSV 127 cm/s. Triphasic waveform. Distal superficial femoral: PSV 102 cm/s. Triphasic waveform. Popliteal: PSV 42 cm/s. Triphasic waveform. Posterior tibial: PSV 85 cm/s. Triphasic waveform. US/US arterial duplex LE BI IMPRESSION: No evidence of hemodynamically significant peripheral arterial disease.
== END 2021-07-10 13:32 | disposition home or self-care (01) ==
LOC: HO.US 13:31
PROVIDERS: PCP Internal Medicine Medical Oncology; Visit Provider Surgery Vascular Surgery
DX: I73.9 Peripheral vascular disease, unspecified (principal)
CPT/HCPCS: 93923; 93925

== ENCOUNTER → 2021-07-16 10:01 | Outpatient (BNVA) | payer MEDICARE, SELFPAY | PROVIDERS: PCP Internal Medicine Medical Oncology; Visit Provider Surgery Vascular Surgery | DX: I73.9 Peripheral vascular disease, unspecified (principal); F17.210 Nicotine dependence, cigarettes, uncomplicated | CPT/HCPCS: 99212 ==

== ENCOUNTER 2021-07-29 07:26 | Outpatient (REF) | payer MEDICARE, SELFPAY ==
[2021-07-29 08:48] LABS: Anion Gap 11 (12-20); Blood Urea Nitrogen 32 mg/dL (9-16); Calcium 9.1 mg/dL (8.4-10.2); Carbon Dioxide 27 mmol/L (22-29); Chloride 111 mmol/L (96-108); Estimated Glomerular Filt Rate 41; Glucose Random 76 mg/dL (60-115); Potassium 4.5 mmol/L (3.3-5.1); Sodium 144 mmol/L (135-145)
== END 2021-07-29 07:27 | disposition home or self-care (01) ==
LOC: HO.LAB 07:26
PROVIDERS: PCP Internal Medicine Medical Oncology; Visit Provider Internal Medicine Hypertension Specialist
DX: I12.9 Hypertensive chronic kidney disease with stage 1 through stage 4 chronic kidney disease, or unspecified chronic kidney disease (principal); N18.9 Chronic kidney disease, unspecified
CPT/HCPCS: 36415; 80048

== ENCOUNTER 2021-08-16 07:56 | Outpatient (REF) | payer MEDICARE, SELFPAY ==
[2021-08-16 08:31] LABS: MANUAL DIFF FLAG NO
[2021-08-16 08:55] LABS: Basophils Percent Auto 0.2 % (0-2); Eosinophils Percent Auto 0.1 % (0-4); Hematocrit 36.5 % (42.0-52.0); Hemoglobin 11.2 g/dl (14.0-18.0); Imm Gran Abs Auto 0.38 X10*3/uL (0.00-0.03); Imm Gran Pct Auto 3.6 % (0.0-0.4); Lymphocytes Absolute Auto 0.6 X10*3/uL (1.2-4.9); Lymphocytes Percent Auto 5.4 % (20-40); Mean Corpuscular HGB Conc 30.7 g/dl (31.0-36.0); Mean Corpuscular Hemoglobin 29.6 pg (27.0-33.0); Mean Corpuscular Volume 96.3 fL (80.0-98.0); Mean Platelet Volume 9.5 fL (9.4-12.4); Monocytes Absolute Auto 0.7 X10*3/uL (0.1-1.2); Monocytes Percent Auto 6.6 % (2-11); Neutrophils Absolute Auto 8.9 x10*3/uL (2.0-8.3); Neutrophils Percent Auto 84.1 % (45-73); Platelet Count 200 X10*3/uL (160-400); Red Blood Count 3.79 X10*6/uL (4.60-5.80); Red Cell Distribution Width 16.8 % (11.0-16.0); White Blood Count 10.6 X10*3/uL (4.8-10.8)
[2021-08-16 09:29] LABS: Alanine Aminotransferase 20 U/L (0-40); Albumin Level 3.7 g/dL (3.5-5.0); Alkaline Phosphatase 42 U/L (39-117); Anion Gap 13 (12-20); Aspartate Amino Transferase 13 U/L (5-37); Bilirubin Total 0.4 mg/dL (0.0-1.0); Blood Urea Nitrogen 35 mg/dL (9-16); Calcium 8.9 mg/dL (8.4-10.2); Carbon Dioxide 25 mmol/L (22-29); Chloride 112 mmol/L (96-108); Estimated Glomerular Filt Rate 45; Glucose Random 76 mg/dL (60-115); Potassium 4.8 mmol/L (3.3-5.1); Sodium 145 mmol/L (135-145); Total Protein 5.9 g/dL (6.5-8.0)
[2021-08-16 09:41] LABS: Erythrocyte Sedimentation Rate 12 MM/HR (0-15)
[2021-08-16 09:56] LABS: Folate 6.6 ng/mL (> or = 4.0); Vitamin B12 < 146 pg/mL (200-900)
[2021-08-19 22:47] LABS: Lyme Abs Screen <0.90 index
[2021-08-20 22:42] LABS: Prot Elec - Albumin 3.6 g/dL (3.8-4.8); Prot Elec - Alpha1 0.3 g/dL (0.2-0.3); Prot Elec - Alpha2 0.7 g/dL (0.5-0.9); Prot Elec - Beta 1 0.5 g/dL (0.4-0.6); Prot Elec - Beta 2 0.3 g/dL (0.2-0.5); Prot Elec - Gamma 0.5 g/dL (0.8-1.7); Prot Elec - Total Protein 5.9 g/dL (6.1-8.1)
== END 2021-08-16 07:57 | disposition home or self-care (01) ==
LOC: HO.LAB 07:56
PROVIDERS: PCP Internal Medicine Medical Oncology; Visit Provider Internal Medicine Medical Oncology
DX: D50.9 Iron deficiency anemia, unspecified (principal); E66.3 Overweight; N18.32 Chronic kidney disease, stage 3b
CPT/HCPCS: 36415; 80053; 82607; 82746; 84165; 85025; 85652; 86617; 86618

== ENCOUNTER 2021-08-19 15:21 | Outpatient (REF) | payer MEDICARE, SELFPAY ==
[2021-08-19 16:41] LABS: Vitamin B12 > 2000 pg/mL (200-900)
[2021-08-23 22:02] LABS: Intrinsic Factor Antibodies Positive (Negative)
== END 2021-08-19 15:22 | disposition home or self-care (01) ==
LOC: HO.LAB 15:21
PROVIDERS: PCP Internal Medicine Medical Oncology; Visit Provider Internal Medicine Medical Oncology
DX: Z13.89 Encounter for screening for other disorder (principal)
CPT/HCPCS: 36415; 82607; 86340

== ENCOUNTER 2021-08-22 19:07 | Inpatient (IN) | payer MEDICARE, SELFPAY ==
--- NOTE | ~2021-08-22 | NM_ITS ---
EXAMINATION: NM LUNG IMAGE PERFUSION CLINICAL INFORMATION: Elevated d-dimer COMPARISON: None TECHNIQUE: Following intravenous administration of 4 mCi of technetium 99m MAA, ventilation study was not performed. FINDINGS: On perfusion scan there is mild segmental perfusion defect right lower lobe posterior basal segment. Are normal size defect is seen on the RODRIGUEZ or AP view. This is likely an artifact. Nonsegmental defects seen in the hilar regions and the lingula from heart shadow.. No additional defects noted. There is a some trapping of isotope activity in the left lower lobe posterior basal segment. NM/NM pul perfusion IMPRESSION: Low probability for PE. Likely artifact in the right lower lobe posterior basal segment only visualized on RPO view. It is not visualized on the arterial or AP view.
--- NOTE | ~2021-08-22 | CT_ITS ---
EXAMINATION: CT ABDOMEN AND PELVIS WITHOUT CONTRAST CLINICAL INFORMATION: Bacteremia. Evaluate for source of infection. COMPARISON: Previous renal ultrasound January 2021 and bladder ultrasound June 2019. Previous CT of the abdomen and pelvis January 2012 and pelvis/hip MRI June 2012 TECHNIQUE: Multidetector volumetric imaging was performed from the superior aspect of the liver through the pubic symphysis. Sagittal and coronal reformatted images were obtained on the technologist's workstation. This CT examination was performed using dose optimization techniques as appropriate, variously including the following: *Automated exposure control *Adjustment of mA and/or kV according to patient size (this includes techniques or standardized protocols for targeted exams where dose is matched to indication/reason for exam; i.e. extremities or head) *Use of iterative reconstruction technique DLP: 483 mGy-cm FINDINGS: LUNG BASES: There is atelectasis or small infiltrate in the right lower lobe. There is a trace right pleural effusion. The left lung base is clear. LIVER, GALLBLADDER, AND BILIARY TREE: The liver is normal in size, shape, and attenuation. No focal hepatic lesion or biliary ductal dilatation is present. The gallbladder is unremarkable with no evidence of radiopaque gallstones, gallbladder wall thickening, or obvious pericholecystic inflammatory changes. PANCREAS: Unremarkable. SPLEEN: Unremarkable. ADRENAL GLANDS: Unremarkable. KIDNEYS AND URETERS: There is no hydronephrosis. There may be a left extrarenal pelvis versus a fullness of the left renal pelvis. There is question of wall thickening of the left renal pelvis. There is a small calcification in the lower pole of the left kidney suggestive of a stone. There is a 3 cm low-attenuation lesion in the lower pole of the left kidney. There is a tiny central calcification in the right kidney questionable for vascular calcification versus stone. BLADDER: There is a small amount of air in the bladder. Clinical correlation is recommended i.e. has the patient having recently catheterized. The bladder is not optimally distended. There is question of a focal superior posterior bladder wall thickening. GASTROINTESTINAL TRACT: There is stool throughout the colon. There is mild diverticulosis. No evidence of diverticulitis or colitis. . The appendix is unremarkable. ABDOMINAL WALL: No significant hernia is appreciated. LYMPH NODES: Normal. VASCULAR: There is evidence of atherosclerotic disease. There is ectasia of the right iliac artery measuring 1.6 cm. PELVIC VISCERA: There is low-attenuation cystic area seen in the prostate gland. This area measures approximately 2.8 x 4.2 cm. There is a left inferior calcification measuring 5 x 10 mm. There is a radiodense focus in the more superior prostate region questionable for surgical clips versus radiation. Correlation with patient's clinical history i.e. has the patient had the prostate gland removed or has the patient had radiation to the prostate gland is recommended. Prostate abscess cannot be excluded. These findings are new from 2012 and 2013 exams. 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 There are degenerative changes of the spine. CT/CT abdomen pelvis wo con IMPRESSION: 2.8 x 4.2 cm cystic area in the prostate/prostate bed. Correlation with patient's history is recommended i.e. has the prostate gland and removed or has the patient received radiation therapy to the prostate gland. Prostate abscess cannot be excluded. Small amount of air in the bladder and question focal bladder wall thickening along the superior and posterior bladder wall. Fullness versus left extrarenal pelvis. Question wall thickening of the left renal pelvis. Correlation with urinalysis and urine culture recommended. Tiny left renal stone and question small right renal stone versus vascular calcification. Atelectasis or small infiltrate in the right lower lobe and tiny right pleural effusion. Constipation and diverticulosis. Fleischner guidelines were followed.
--- NOTE | ~2021-08-22 | XR_ITS ---
EXAMINATION: XR CHEST CLINICAL INFORMATION: Shortness of breath, tachycardia COMPARISON: 03/22/2010 TECHNIQUE: 2 views of the chest were obtained. FINDINGS: Mildly elevated left hemidiaphragm. There is no failure here. No effusion. Prominent infrahilar region on the right.. Limited positioning per the technologist. The cardiac silhouette is within normal limits. XR/XR chest 2V IMPRESSION: Limited study. No acute finding. Prominent infrahilar region on the right of uncertain etiology. This could be due to rotation and altered positioning. Recommend PA and lateral films when the patient is able.
--- NOTE | ~2021-08-22 | CT_ITS ---
Indication: Unwitnessed fall EXAMINATION: Noncontrast CT the brain, CT of the cervical spine. Axial imaging with coronal and sagittal reformatted images. Radiation dose [address] examination was performed using dose optimization techniques as appropriate, variously including the following: *Automated exposure control *Adjustment of mA and/or kV according to patient size (this includes techniques or standardized protocols for targeted exams where dose is matched to indication/reason for exam; i.e. extremities or head) *Use of iterative reconstruction technique. CT brain; There is no midline shift. There is no mass effect. There is no hemorrhage. The basal cisterns appear patent. The posterior fossa risk grossly within normal limits. No extra-axial collection. Scattered areas of white matter ischemic change. No fracture is seen on the bone windows. Sinus disease is noted. CT cervical spine; No fracture or dislocation. Degenerative changes are noted. CT/CT cervical spine wo con IMPRESSION: Negative acute noncontrast CT of the brain. No fracture or dislocation of the cervical spine
--- NOTE | ~2021-08-22 | XR_ITS ---
EXAMINATION: XR CHEST CLINICAL INFORMATION: Shortness of breath COMPARISON: Chest x-ray 08/26/2021. CT chest 08/22/2021 TECHNIQUE: Frontal portable view of the chest was obtained. 2200 hours FINDINGS: No significant abnormality is noted involving the heart, lungs, mediastinum, bony thorax or soft tissues. XR/XR chest 1V IMPRESSION: No acute abnormality of chest.
--- NOTE | ~2021-08-22 | US_ITS ---
EXAMINATION: US VENOUS ULTRASOUND WITH DOPPLER LOWER EXTREMITY, BILATERAL CLINICAL INFORMATION: Swelling. COMPARISON: None TECHNIQUE: Ultrasound of the deep veins is performed from the hip to the calf with compression sonography and color and pulse Doppler assessment. Spectral analysis with color-flow imaging is performed. FINDINGS: RIGHT: There is normal venous compression and respiratory variation and augmented flow. The visualized common femoral vein, superficial femoral vein, profunda femoral vein, popliteal vein, and the trifurcation region shows no evidence of deep venous thrombosis. In the calf the posterior tibial vein is normal. The peroneal vein is not visualized. There is no significant popliteal fossa cyst. LEFT: There is normal venous compression and respiratory variation and augmented flow. The visualized common femoral vein, superficial femoral vein, profunda femoral vein, popliteal vein, and the trifurcation region shows no evidence of deep venous thrombosis. In the calf the posterior tibial vein and the peroneal vein are normal. There is no significant popliteal fossa cyst. If the patient's symptoms persist, followup ultrasound in 5 days 7 days might be of value to exclude proximal propagation from a non-visualized calf vein. US/US venous duplex LE BI IMPRESSION: No DVT demonstrated in the bilateral lower extremity.
--- NOTE | ~2021-08-22 | CT_ITS ---
Indication: Unwitnessed fall EXAMINATION: Noncontrast CT the brain, CT of the cervical spine. Axial imaging with coronal and sagittal reformatted images. Radiation dose [address] examination was performed using dose optimization techniques as appropriate, variously including the following: *Automated exposure control *Adjustment of mA and/or kV according to patient size (this includes techniques or standardized protocols for targeted exams where dose is matched to indication/reason for exam; i.e. extremities or head) *Use of iterative reconstruction technique. CT brain; There is no midline shift. There is no mass effect. There is no hemorrhage. The basal cisterns appear patent. The posterior fossa risk grossly within normal limits. No extra-axial collection. Scattered areas of white matter ischemic change. No fracture is seen on the bone windows. Sinus disease is noted. CT cervical spine; No fracture or dislocation. Degenerative changes are noted. CT/CT head/brain wo con IMPRESSION: Negative acute noncontrast CT of the brain. No fracture or dislocation of the cervical spine
--- NOTE | ~2021-08-22 | XR_ITS ---
EXAMINATION: XR FOOT, RIGHT CLINICAL INFORMATION: Bruising status post fall COMPARISON: None TECHNIQUE: AP, lateral, and oblique views of the right foot. FINDINGS: There is a minimally displaced slightly irregular transverse fracture through the distal end of the proximal phalanx just proximal to the articular surface. There is no periosteal reaction. The may be some mild surrounding soft tissue swelling. Moderate osteoarthritis of the first metatarsophalangeal joint. Calcaneal spurs. XR/XR foot RT 2V IMPRESSION: Fracture proximal phalanx great toe
--- NOTE | ~2021-08-22 | CT_ITS ---
EXAMINATION: CT CHEST WITHOUT CONTRAST CLINICAL INFORMATION: Shortness of breath. Tachycardia. COMPARISON: Radiographs from the same date. TECHNIQUE: Multidetector volumetric CT imaging of the chest was done. Axial MIP volume rendering provided. Sagittal and coronal reformatted images were obtained. This CT examination was performed using dose optimization techniques as appropriate, variously including the following: *Automated exposure control *Adjustment of mA and/or kV according to patient size (this includes techniques or standardized protocols for targeted exams where dose is matched to indication/reason for exam; i.e. extremities or head) *Use of iterative reconstruction technique DLP: 282 mGy-cm FINDINGS: QUALITY CONTROL COORDINATOR: Normal lung volumes. No consolidation. LUNGS: No appreciable abnormalities identified in the right infrahilar region. Mild centrilobular and paraseptal pulmonary emphysema. Secretions are evident within the right mainstem bronchus dependently. A few foci of intraluminal opacification are present in the lower lobes, potentially due to areas of mucous. Minimal bronchial thickening. There is a calcified granuloma within the lingula. MEDIASTINUM: Diffuse atherosclerotic calcifications are present in the thoracic aorta and coronary arteries. No aneurysmal dilatation of the thoracic aorta. Heart is normal in size. No pericardial effusion. Normal thyroid gland. Unremarkable soft tissues. No mediastinal or hilar adenopathy. PLEURA: There is no pleural effusion. No pleural mass or thickening. AXILLA: No lymphadenopathy. UPPER ABDOMEN: A fluid attenuation 3.5 cm cyst at the right kidney is partially imaged and of doubtful clinical significance. No recommend follow-up. No acute findings in the upper abdomen. OSSEOUS STRUCTURES: Minimal degenerative disc disease at the thoracolumbar junction. Mild glenohumeral osteoarthritis. CT/CT chest wo con IMPRESSION: 1. No acute findings in the chest. No airspace consolidation. 2. Mild centrilobular and paraseptal pulmonary edema. Mild bronchial wall thickening and intraluminal bronchial secretions are nonspecific but can be seen with chronic bronchitis..
--- NOTE | ~2021-08-22 | XR_ITS ---
EXAMINATION: XR chest 2V CLINICAL INFORMATION: VQ scan COMPARISON: August 22, 2021 TECHNIQUE: XR chest 2V Lungs and Cassy: Both lungs are clear. Pleura: Blunting of right costophrenic angle probably small pleural effusion or pleural thickening. Prominent cassy bilaterally probably vascular engorgement. Heart: The heart is normal in size. Mediastinum: The mediastinum is within normal limits.. Bones: Skeletal structures included are normal for patient's age. XR/XR chest 2V IMPRESSION: Mildly prominent cassy bilaterally possibly vascular. Clinical correlation and follow-up recommended. Blunting of right costophrenic angle suggesting small effusion.
[2021-08-22 19:25] VITALS: BP 110/62; BP 121/62; PULSE 124; PULSE 133; RESP 20; TEMP 37.2; O2SAT 97; BMI 23.3
[2021-08-22 19:40] VITALS: BP 106/48; PULSE 134; RESP 28; TEMP 37.2; O2SAT 96
--- NOTE | 2021-08-22 19:58 | ECG_ITS ---
Test Reason : TACHY Blood Pressure : / mmHG Vent. Rate : 134 BPM Atrial Rate : 134 BPM P-R Int : 124 ms QRS Dur : 072 ms QT Int : 300 ms P-R-T Axes : 030 069 034 degrees QTc Int : 448 ms Sinus tachycardia Otherwise normal ECG When compared with ECG of 19-FEB-2021 12:54, No significant change was found Referred By: Kamla Anthony Electronically Signed By:BRIAN QUIÑONES MD
--- NOTE | 2021-08-22 20:00 | PC.NURSE ---
pt in radiology
--- NOTE | 2021-08-22 20:51 | PC.NURSE ---
iv inserted, labs drawn, covid/flu swabs performed, color television console monitor applied pt sinus tach on montitor, ekg being performed by tech, pt has had imaging performed already, family at bedside, call kaufman within reach, will continue to monitor
--- NOTE | 2021-08-22 21:02 | ED_ITS ---
HPI - Fall General Chief Complaint: Fall Stated Complaint: FALL- LEG PAIN Time Seen by Provider: 08/22/21 19:58 Source: patient and family Mode of arrival: EMS Limitations: no limitations History of Present Illness HPI Narrative: patient presents to the emergency department with his . Patient is very fatigued and tired of time exam, majority of history obtained from patient's . She reports that he has been having increasing pain to the bilateral legs, difficulty walking for about 2 months. This has become progressively worse and has associated generalized weakness. He has been followed by his [facility] provider outpatient, his reports that he has trialed steroids without improvement, went to vascular and had ultrasound of the bilateral legs which was reportedly normal. Patient was found to be significantly deficient in vitamin B12 and has been supplemented with intramuscular injection as well as oral medication. She states that he has a history of kidney disease, and history of prostate cancer for which she is being followed by Urology Dr. Mace, not currently receiving chemotherapy or radiation. She states that she brought him in today because he has been significantly more fatigued, had an unwitnessed fall while in the basement, patient reportedly was in a standing position, patient states that he fell onto his left knee and is currently denying pain, denies hitting his head or having loss of consciousness, and not on anticoagulation. he additionally reports to shortness of breath and feeling dyspnea with exertion. Related Data Home Medications Medication Instructions Recorded Confirmed amlodipine 5 mg tablet 1 tab PO DAILY 02/19/21 simvastatin 10 mg tablet 1 tab PO BEDTIME 02/19/21 cyanocobalamin (vitamin B-12) 1 tab PO DAILY 08/22/21 1,000 mcg tablet dexamethasone 2 mg tablet 1 tab PO Q12H 08/22/21 Previous Rx's Medication Instructions Recorded mirabegron 25 mg tablet,extended 25 mg PO DAILY 30 Days #30 tab 05/08/21 release 24 hr (Myrbetriq) Allergies Allergy/AdvReac Type Severity Reaction Status Date / Time No Known Allergies Allergy Verified 07/16/21 10:10 [No Known Allergies*] Review of Systems Review of Systems: Constitutional: Positive weakness. Positive fatigue. No weight loss, fever, chills HEENT: No visual loss, blurred vision, double vision or yellow sclera. No hearing loss, sneezing, congestion, runny nose or sore throat. Skin: No rash or itching. Cardiovascular: No chest pain, chest pressure or chest discomfort. No palpitations or pedal edema. Respiratory: positive shortness of breath. Positive dyspnea on exertion. Positive cough Gastrointestinal: No anorexia, nausea, vomiting or diarrhea. No abdominal pain or blood in stool. Genitourinary: No burning micturition. No urinary frequency or incontinence. Neurologic: No headache, dizziness, syncope, unilateral weakness, ataxia, numbness or tingling in the extremities. No change in bowel or bladder control. Musculoskeletal: No muscle pain, back pain, joint pain or stiffness. Hematologic: No bleeding or bruising. Lymphatics: No enlarged lymph nodes. Psychiatric:No depression or anxiety. Endocrine: No polyuria or polydipsia. Yes all other systems are reviewed and are negative PMFSH Past Medical History Attestation statement: The following information was validated with the patient. Source: old records reviewed Medical History Hematuria Hypercholesteremia Hypertension Kidney disease Macular degeneration Prostate cancer Urgency incontinence Surgical History History of back surgery History of penile implant History of prostate surgery Social History Social History Alcohol intake: never Patient Tobacco Use Status: Current everyday Tobacco user Smoking Start Date: 06/18/61 Cigarettes Per Day: 5 Smoked in Last 30 Days: Yes Use of substances other than those prescribed or required for medical reasons: No Advance Directives: No Physical Exam Vital Signs: Vital Signs: Last Vital Signs Temp 98.3 F 08/22/21 21:27 Pulse 129 H 08/22/21 21:27 Resp 28 H 08/22/21 21:27 BP 105/51 L 08/22/21 21:27 Pulse Ox 94 08/22/21 21:27 BMI result Body Mass Index 23.3 Vital signs have been reviewed as and appeared to be correct. hypotension.? tachycardia.? tachypnea. Temperature normal.? Oxygen saturation normal. Appearance: lethargic, responding to questions appropriately,?Oriented to person, place and time. appear significantly fatigued Head: atraumatic normocephalic Eyes: Pupils equal, round and reactive to light.? no nystagmus. EOMi ENT: Pharynx normal.?? Neck: Normal inspection.? Neck supple.?? no palpable midline C-spine tenderness, step-offs, deformities. CVS: Heart sounds normal. sinus tachycardia.? Pulses normal.?? Respiratory: No respiratory distress.? Lung sounds Coarse bilaterally, d iminished at the bases?? Abdomen: Soft and non-tender. Normoactive bowel sounds. No pulsatile mass.?? Skin: Skin warm and dry.? skin color pale.? abrasions over left knee, no swelling, erythema, warmth, deformity. Extremities: No lower extremity edema.? Neuro: Moves all extremities spontaneously. Sensation intact bilaterally. CN II- XII intact. No focal neuro deficits. Course Course Course Narrative: Patient is a 71-year-old male with a past medical history of hematuria, hyperlipidemia, hypertension, CKD, macular degeneration, prostate cancer, vitamin B12 deficiency sent into the emergency department for multiple complaints as noted in the HPI. Will obtain CBC to evaluate for leukocytosis/ anemia, CMP to evaluate for abnormal electrolytes /abnormal renal function/ abnormal hepatic function, EKG and troponin to evaluate for ischemia/ACS. CPK in the setting of fall. D-Dimer to exclude PE. Chest x-ray to evaluate for consolidation/ infiltrate/ mass/ pulmonary congestion. Urinalysis to evaluate for infection. 1L NS IVF. Reevaluation(s) Reevaluation #1: patient's chest x-ray reveals no acute disease, prominent infrahilar region on the right of uncertain etiology. CBC reveals no leukocytosis, hemoglobin 11.1 and hematocrit 34.6. CMP reveals normal electrolytes, acute kidney injury with BUN 43 and creatinine 2.51. Troponin is 64, EKG revealing sinus tachycardia, no acute concerns for ischemia, will obtained delta troppnin. D- dimer is elevated at 3146, not a candidate for CT angio of the chest, patient will require V/Q scan for further evaluation. COVID- 19 and influenza testing are negative. BNP with mild elevation of 279. CK 6,336. Lactic acid is normal at 1.5, suspect that a KI may be secondary to elevated CPK rather than sepsis at this time, afebrile, no leukocytosis, would defer sepsis fluids 30 mg/kg at this time. Spoke with hospitalist Dr. Chiang For admission to medicine service, agrees to accept patient at this time. Will enter orders for CT of the chest without contrast at this time. Urinalysis is pending. differential at this time to include pneumonia, pulmonary embolism, urinary tract infection, ACS, admitting for acute kidney injury, tachycardia Time: 21:31 MDM - Fall Medical Records Attestation: I reviewed the patient's medical records. Lab Data Attestation: I reviewed the patient's lab results. Result diagrams: 08/22/21 20:48 08/22/21 20:48 Labs: Lab Results 08/22/21 08/22/21 08/22/21 Range/Units 20:47 20:48 20:48 WBC 8.2 (4.8-10.8) X10*3/uL RBC 3.72 L (4.60-5.80) X10*6/uL Hgb 11.1 L (14.0-18.0) g/dl Hct 34.6 L (42.0-52.0) % MCV 93.0 (80.0-98.0) fL MCH 29.8 (27.0-33.0) pg MCHC 32.1 (31.0-36.0) g/dl RDW 17.0 H (11.0-16.0) % Plt Count 119 L D (160-400) X10*3/uL MPV 9.5 (9.4-12.4) fL Immature Gran % (Auto) 0.9 H (0.0-0.4) % Neut % (Auto) 93.2 H (45-73) % Lymph % (Auto) 2.6 L (20-40) % [place] % (Auto) 3.2 (2-11) % Eos % (Auto) 0.0 (0-4) % Baso % (Auto) 0.1 (0-2) % Lymph # (Auto) 0.2 L (1.2-4.9) X10*3/uL [place] # (Auto) 0.3 (0.1-1.2) X10*3/uL Eos # (Auto) 0.0 (0.0-0.4) X10*3/uL Baso # (Auto) 0.0 (0.0-0.2) X10*3/uL Abs Immat Gran (auto) 0.07 H (0.00-0.03) X10*3/uL Absolute Neuts (auto) 7.7 (2.0-8.3) x10*3/uL Absolute Nucleated RBC 0.000 (0.0-0.012) X10*3/uL Nucleated RBC % (auto) 0.0 (0.0-0.2) /100WBC Smear Tech's Comments VERIFIED D-Dimer High Sensitivty NG/ML Sodium 143 (135-145) mmol/L Potassium 4.4 (3.3-5.1) mmol/L Chloride 108 (96-108) mmol/L Carbon Dioxide 23 (22-29) mmol/L Anion Gap 16 (12-20) BUN 43 H (9-16) mg/dL Creatinine 2.51 H (0.5-1.4) mg/dL Estim Creat Clear Calc 30.4 Estimated GFR 25 Random Glucose 113 D (60-115) mg/dL Lactic Acid (0.5-2.0) mmol/L Calcium 8.2 L D (8.4-10.2) mg/dL Magnesium 2.3 (1.6-2.6) mg/dL Total Bilirubin 0.8 (0.0-1.0) mg/dL AST 105 H (5-37) U/L ALT 30 (0-40) U/L Alkaline Phosphatase 50 (39-117) U/L Total Creatine Kinase 6336 H D (38-174) U/L Troponin I High Sens (<3.5-35.0) ng/L B-Natriuretic Peptide 279 H (<100) pg/mL Total Protein 5.6 L (6.5-8.0) g/dL Albumin 3.4 L (3.5-5.0) g/dL COVID-19 (SHARAD) (Negative) COVID-19 Clin Com Influenza Type A (SHAAN) (Negative) Influenza Type B (SHAAN) (Negative) Influenza A & B Note 08/22/21 08/22/21 08/22/21 Range/Units 20:48 20:48 20:48 WBC (4.8-10.8) X10*3/uL RBC (4.60-5.80) X10*6/uL Hgb (14.0-18.0) g/dl Hct (42.0-52.0) % MCV (80.0-98.0) fL MCH (27.0-33.0) pg MCHC (31.0-36.0) g/dl RDW (11.0-16.0) % Plt Count (160-400) X10*3/uL MPV (9.4-12.4) fL Immature Gran % (Auto) (0.0-0.4) % Neut % (Auto) (45-73) % Lymph % (Auto) (20-40) % [place] % (Auto) (2-11) % Eos % (Auto) (0-4) % Baso % (Auto) (0-2) % Lymph # (Auto) (1.2-4.9) X10*3/uL [place] # (Auto) (0.1-1.2) X10*3/uL Eos # (Auto) (0.0-0.4) X10*3/uL Baso # (Auto) (0.0-0.2) X10*3/uL Abs Immat Gran (auto) (0.00-0.03) X10*3/uL Absolute Neuts (auto) (2.0-8.3) x10*3/uL Absolute Nucleated RBC (0.0-0.012) X10*3/uL Nucleated RBC % (auto) (0.0-0.2) /100WBC Smear Tech's Comments D-Dimer High Sensitivty NG/ML Sodium (135-145) mmol/L Potassium (3.3-5.1) mmol/L Chloride (96-108) mmol/L Carbon Dioxide (22-29) mmol/L Anion Gap (12-20) BUN (9-16) mg/dL Creatinine (0.5-1.4) mg/dL Estim Creat Clear Calc Estimated GFR Random Glucose (60-115) mg/dL Lactic Acid (0.5-2.0) mmol/L Calcium (8.4-10.2) mg/dL Magnesium (1.6-2.6) mg/dL Total Bilirubin (0.0-1.0) mg/dL AST (5-37) U/L ALT (0-40) U/L Alkaline Phosphatase (39-117) U/L Total Creatine Kinase (38-174) U/L Troponin I High Sens 64.0 H (<3.5-35.0) ng/L B-Natriuretic Peptide (<100) pg/mL Total Protein (6.5-8.0) g/dL Albumin (3.5-5.0) g/dL COVID-19 (SHARAD) Negative (Negative) COVID-19 Clin Com See Note Influenza Type A (SHAAN) Negative (Negative) Influenza Type B (SHAAN) Negative (Negative) Influenza A & B Note See Note 08/22/21 08/22/21 Range/Units 20:48 20:48 WBC (4.8-10.8) X10*3/uL RBC (4.60-5.80) X10*6/uL Hgb (14.0-18.0) g/dl Hct (42.0-52.0) % MCV (80.0-98.0) fL MCH (27.0-33.0) pg MCHC (31.0-36.0) g/dl RDW (11.0-16.0) % Plt Count (160-400) X10*3/uL MPV (9.4-12.4) fL Immature Gran % (Auto) (0.0-0.4) % Neut % (Auto) (45-73) % Lymph % (Auto) (20-40) % [place] % (Auto) (2-11) % Eos % (Auto) (0-4) % Baso % (Auto) (0-2) % Lymph # (Auto) (1.2-4.9) X10*3/uL [place] # (Auto) (0.1-1.2) X10*3/uL Eos # (Auto) (0.0-0.4) X10*3/uL Baso # (Auto) (0.0-0.2) X10*3/uL Abs Immat Gran (auto) (0.00-0.03) X10*3/uL Absolute Neuts (auto) (2.0-8.3) x10*3/uL Absolute Nucleated RBC (0.0-0.012) X10*3/uL Nucleated RBC % (auto) (0.0-0.2) /100WBC Smear Tech's Comments D-Dimer High Sensitivty 3146 NG/ML Sodium (135-145) mmol/L Potassium (3.3-5.1) mmol/L Chloride (96-108) mmol/L Carbon Dioxide (22-29) mmol/L Anion Gap (12-20) BUN (9-16) mg/dL Creatinine (0.5-1.4) mg/dL Estim Creat Clear Calc Estimated GFR Random Glucose (60-115) mg/dL Lactic Acid 1.5 (0.5-2.0) mmol/L Calcium (8.4-10.2) mg/dL Magnesium (1.6-2.6) mg/dL Total Bilirubin (0.0-1.0) mg/dL AST (5-37) U/L ALT (0-40) U/L Alkaline Phosphatase (39-117) U/L Total Creatine Kinase (38-174) U/L Troponin I High Sens (<3.5-35.0) ng/L B-Natriuretic Peptide (<100) pg/mL Total Protein (6.5-8.0) g/dL Albumin (3.5-5.0) g/dL COVID-19 (SHARAD) (Negative) COVID-19 Clin Com Influenza Type A (SHAAN) (Negative) Influenza Type B (SHAAN) (Negative) Influenza A & B Note Imaging Data Chest x-ray: Radiologist's impression: XR/XR chest 2V IMPRESSION: Limited study. No acute finding. Prominent infrahilar region on the right of uncertain etiology. This could be due to rotation and altered positioning. Recommend PA and lateral films when the patient is able. CT scan - head: Radiologist's impression: CT/CT head/brain wo con IMPRESSION: Negative acute noncontrast CT of the brain. ? No fracture or dislocation of the cervical spine ECG Data Attestation: I personally reviewed and interpreted this ECG as follows: ECG interpretation date: 08/22/21 ECG interpretation time: 21:32 Interpretation: Rate: 134 Rhythm:? sinus tachycardia Lillian:? normal Normal P waves.? Normal SANTOS.?? Normal QRS complex.?? ST T wave :?? no ST elevation, no ST depression, no T-wave inversion qTC: 448 The study has been interpreted contemporaneously by me. Discharge Plan Discharge Clinical Impression: Acute kidney injury, Shortness of breath, Tachycardia, Weakness Patient Disposition: Admitted As Inpatient
[2021-08-22 21:03] LABS: Basophils Percent Auto 0.1 % (0-2); Hematocrit 34.6 % (42.0-52.0); Hemoglobin 11.1 g/dl (14.0-18.0); Imm Gran Abs Auto 0.07 X10*3/uL (0.00-0.03); Imm Gran Pct Auto 0.9 % (0.0-0.4); Lymphocytes Absolute Auto 0.2 X10*3/uL (1.2-4.9); Lymphocytes Percent Auto 2.6 % (20-40); MANUAL DIFF FLAG SCAN; Mean Corpuscular HGB Conc 32.1 g/dl (31.0-36.0); Mean Corpuscular Hemoglobin 29.8 pg (27.0-33.0); Mean Platelet Volume 9.5 fL (9.4-12.4); Monocytes Absolute Auto 0.3 X10*3/uL (0.1-1.2); Monocytes Percent Auto 3.2 % (2-11); Neutrophils Absolute Auto 7.7 x10*3/uL (2.0-8.3); Neutrophils Percent Auto 93.2 % (45-73); Platelet Count 119 X10*3/uL (160-400); Red Blood Count 3.72 X10*6/uL (4.60-5.80); SCAN SMEAR FLAG 1; White Blood Count 8.2 X10*3/uL (4.8-10.8)
[2021-08-22 21:17] LABS: COVID-19 Test Negative (Negative); IDNOW Serial# 16C4AD1C; IDNOW Serial# 55D5AD1C; Influenza A Negative (Negative); Influenza B2 Negative (Negative)
[2021-08-22 21:18] LABS: Lactic Acid 1.5 mmol/L (0.5-2.0)
[2021-08-22 21:19] LABS: D Dimer High Sensitivity 3146 NG/ML
[2021-08-22 21:23] LABS: Alanine Aminotransferase 30 U/L (0-40); Albumin Level 3.4 g/dL (3.5-5.0); Alkaline Phosphatase 50 U/L (39-117); Anion Gap 16 (12-20); Aspartate Amino Transferase 105 U/L (5-37); Bilirubin Total 0.8 mg/dL (0.0-1.0); Blood Urea Nitrogen 43 mg/dL (9-16); Calcium 8.2 mg/dL (8.4-10.2); Carbon Dioxide 23 mmol/L (22-29); Chloride 108 mmol/L (96-108); Creatinine Clr Calc Pharmacy 30.4; Estimated Glomerular Filt Rate 25; Glucose Random 113 mg/dL (60-115); Magnesium 2.3 mg/dL (1.6-2.6); Potassium 4.4 mmol/L (3.3-5.1); Sodium 143 mmol/L (135-145); Total Protein 5.6 g/dL (6.5-8.0)
[2021-08-22 21:24] LABS: B Type Natriuretic Peptide 279 pg/mL (<100)
[2021-08-22 21:27] VITALS: BP 105/51; PULSE 129; RESP 28; TEMP 36.8; O2SAT 94
[2021-08-22 21:28] LABS: SLIDE REVIEW VERIFIED
[2021-08-22] MEDS: cefTRIAXone sodium 1 GM in 0.9 % Sodium Chloride 50 ML IV (21:50)
[2021-08-22] MEDS: 0.9 % Sodium Chloride 1,000 ML 999 ML IV (21:56)
--- NOTE | 2021-08-22 21:56 | PC.NURSE ---
iv antibiotics running per order
[2021-08-22 22:00] VITALS: BP 116/68; PULSE 124; RESP 20; O2SAT 96
--- NOTE | 2021-08-22 22:08 | PHA.MEDREC ---
Pharmacy Consult ? Medication Reconciliation Pharmacy has completed the medication reconciliation. No remarkable issues. Paulette Salvador, UshaD
--- NOTE | 2021-08-22 22:10 | PC.NURSE ---
straight cath performed for urine sample
[2021-08-22 22:28] LABS: Appearance Urine CLOUDY; Color Urine YELLOW; Glucose Urine UA NEG (NEG); Leukocyte Esterase Urine 3+ (NEG); Nitrite Urine POS (NEG); PH 5.5 (5.0-8.0); Specific Gravity - Urine 1.025 (1.005-1.025); UACC Culture Trigger YES; Urine Blood 3+ (NEG); Urine Ketones NEG (NEG); Urine Protein 2+ MG/DL (NEG-TRACE)
--- NOTE | 2021-08-22 22:38 | PC.NURSE ---
patients legs noted to be mottled in some areas, warm blankets applied, unable to palpate pedal pulses, this nurse used doppler and was able to find pedal and post tib pulses with doppler- marked with marker. patient is awake/alert to person/place, continues to state he just wants to go home, pt was made aware he is going to spend the night in the hospital, monitor technician sinus tach, vitals otherwise stable, ivf continue to run, at bedside, call kaufman within reach, will continue to monitor.
[2021-08-22 22:40] LABS: Bacteria Urine 1+ /LPF; Squamous Epithelial Cell Urine 1+ /LPF
[2021-08-22 22:51] VITALS: TEMP 39.1
--- NOTE | 2021-08-22 23:43 | PM.IMHP ---
History of Present Illness Date of Service: 08/22/21 Chief Complaint: urinary symptoms This is a 71-year-old male with past medical history of CHF, CKD, history of prostate cancer, HTN, HLD, who presents to the hospital with complaints of urinary symptoms. Patient reports that he has urine adan when he pees. This has been going on for the past 1 week. Patient otherwise denies having any fever or chills. He reports that he has been slipping on infusions to admit that he has been falling. Otherwise denies any headache, change in vision, no abdominal pain nausea or vomiting, no diarrhea constipation, no chest pain, no shortness of breath, no cough, no lower extremity edema. No orthopnea or PND. On arrival to the ED patient hemodynamically stable, found to have a temperature of 102.3 degrees rectally, heart rate of 134, respiratory rate of 28, BP of 106 or 40 a.m. satting 96% on room air Labs are significant for WBC count of 8.2, hemoglobin of 11.1, creatinine of 2.51 with baseline of around 1.5, CPK of 6336, initial troponin of 64, on repeat 53, BNP of 279, UA that is positive for nitrites, leukocyte Estrace and WBC Chest x-ray negative, chest CT negative, cervical spine his spine negative. Patient started on IV antibiotics, will be admitted for further management Review of Systems Review of Systems: Yes all other systems are reviewed and are negative [facility] Medical History Hematuria Hypercholesteremia Hypertension Kidney disease Macular degeneration Prostate cancer Urgency incontinence Family History (Updated 08/23/21 @ 06:13 by Owen Chiang MD) Other No family history of coronary artery disease Surgical History History of back surgery History of penile implant History of prostate surgery Social History Household Members: Spouse Housing: House Do you presently have visiting nurse or other home services: No Alcohol intake: never Patient Tobacco Use Status: Current everyday Tobacco user Smoking Start Date: 06/18/61 Tobacco use type: Cigar Cigarette Packs Per Day: 0.5 Cigarettes Per Day: 10.0 Smoked in Last 30 Days: Yes Patient Interested in Nicotine Replacement: No Patient Given Instructions on How to Stop Smoking: No Second Hand Smoke Exposure: No Use of substances other than those prescribed or required for medical reasons: No Have you been hit, kicked, punched, or otherwise hurt by someone within the past year? If so, by whom?: No Do you feel safe in your current relationship?: No Is there a partner from a previous relationship who is making you feel unsafe now?: No Are you made to feel afraid or neglected: No Advance Directives: No Do you have thoughts of harming others: None Do you have a plan to hurt others: No Plan Recently lost weight without trying: No How much weight loss: Not applicable Eating poorly because of decreased appetite: No Nutrition screen score: 0 Nutrition Risks: No Nutritional Risk Meds Allergies Allergy/AdvReac Type Severity Reaction Status Date / Time No Known Allergies Allergy Verified 07/16/21 10:10 [No Known Allergies*] Active Medications: Current Medications Sodium Chloride (Ns) 2,478 mls @ 2,478 mls/hr 30 ml/kg infuse over 1 hr (2478 ml) IV .Q1H STA Stop: 08/23/21 00:10 Pharmacy Consult (Consult Rx Perform Med Rec) 1 each MISCELLANE ONCE PRN PRN Reason: Consult order Home Medications Medication Instructions Recorded Confirmed Last Taken Type amlodipine 5 mg tablet 1 tab PO DAILY 02/19/21 08/22/21 08/22/21 History simvastatin 10 mg tablet 1 tab PO BEDTIME 02/19/21 08/22/21 08/21/21 History cholecalciferol (vitamin D3) 25 25 mcg PO DAILY 08/22/21 08/22/21 08/22/21 History mcg (1,000 unit) tablet cyanocobalamin (vitamin B-12) 1 tab PO DAILY 08/22/21 08/22/21 08/22/21 History 1,000 mcg tablet lutein 20 mg capsule 20 mg PO DAILY 08/22/21 08/22/21 08/22/21 History Physical Exam Vital Signs and Narrative: Vital Signs: Last Vital Signs Temp 102.3 F H 08/22/21 22:51 Pulse 124 H 08/22/21 22:00 Resp 20 08/22/21 22:00 BP 116/68 08/22/21 22:00 Pulse Ox 96 08/22/21 22:00 BMI result Body Mass Index 23.3 Const: General: cooperative and no acute distress Orientation/consciousness: patient oriented x3 Eyes: General: appearance normal, both eyes and all related structures Resp: Effort & Inspection: normal respiratory effort Auscultation: clear to auscultation bilaterally Cardio: Rate: regular rate Rhythm: regular rhythm GI: Palpation (GI): Soft to palpation Auscultation: normal bowel sounds Skin: General skin exam: no rashes or lesions noted Neuro: General: patient oriented x3 Cognition (Neuro): normal cognition Extrem: General: Yes normal to inspection and Yes no pedal edema Results Labs CBC and Chem 7: 08/22/21 20:48 08/22/21 20:48 Labs: Laboratory Results - last 24 hr 08/22/21 08/22/21 08/22/21 20:47 20:48 20:48 MCV 93.0 MCH 29.8 MCHC 32.1 RDW 17.0 H Plt Count 119 L D MPV 9.5 Immature Gran % (Auto) 0.9 H Neut % (Auto) 93.2 H Lymph % (Auto) 2.6 L [place] % (Auto) 3.2 Eos % (Auto) 0.0 Baso % (Auto) 0.1 Lymph # (Auto) 0.2 L [place] # (Auto) 0.3 Eos # (Auto) 0.0 Baso # (Auto) 0.0 Abs Immat Gran (auto) 0.07 H Absolute Neuts (auto) 7.7 Absolute Nucleated RBC 0.000 Nucleated RBC % (auto) 0.0 Smear Tech's Comments VERIFIED D-Dimer High Sensitivty Anion Gap 16 Estim Creat Clear Calc 30.4 Estimated GFR 25 Random Glucose 113 D Lactic Acid Calcium 8.2 L D Magnesium 2.3 Total Bilirubin 0.8 AST 105 H ALT 30 Alkaline Phosphatase 50 Total Creatine Kinase 6336 H D Troponin I High Sens B-Natriuretic Peptide 279 H Total Protein 5.6 L Albumin 3.4 L Urine Color Urine Appearance Urine pH Ur Specific Douglas Urine Protein Urine Glucose (UA) Urine Ketones Urine Blood Urine Nitrite Ur Leukocyte Esterase Urine RBC Urine WBC Ur Squamous Epith Cells Urine Bacteria COVID-19 (SHARAD) COVID-19 Clin Com Influenza Type A (SHAAN) Influenza Type B (SHAAN) Influenza A & B Note 08/22/21 08/22/21 08/22/21 20:48 20:48 20:48 MCV MCH MCHC RDW Plt Count MPV Immature Gran % (Auto) Neut % (Auto) Lymph % (Auto) [place] % (Auto) Eos % (Auto) Baso % (Auto) Lymph # (Auto) [place] # (Auto) Eos # (Auto) Baso # (Auto) Abs Immat Gran (auto) Absolute Neuts (auto) Absolute Nucleated RBC Nucleated RBC % (auto) Smear Tech's Comments D-Dimer High Sensitivty Anion Gap Estim Creat Clear Calc Estimated GFR Random Glucose Lactic Acid Calcium Magnesium Total Bilirubin AST ALT Alkaline Phosphatase Total Creatine Kinase Troponin I High Sens 64.0 H B-Natriuretic Peptide Total Protein Albumin Urine Color Urine Appearance Urine pH Ur Specific Douglas Urine Protein Urine Glucose (UA) Urine Ketones Urine Blood Urine Nitrite Ur Leukocyte Esterase Urine RBC Urine WBC Ur Squamous Epith Cells Urine Bacteria COVID-19 (SHARAD) Negative COVID-19 Clin Com See Note Influenza Type A (SHAAN) Negative Influenza Type B (SHAAN) Negative Influenza A & B Note See Note 08/22/21 08/22/21 08/22/21 20:48 20:48 22:09 MCV MCH MCHC RDW Plt Count MPV Immature Gran % (Auto) Neut % (Auto) Lymph % (Auto) [place] % (Auto) Eos % (Auto) Baso % (Auto) Lymph # (Auto) [place] # (Auto) Eos # (Auto) Baso # (Auto) Abs Immat Gran (auto) Absolute Neuts (auto) Absolute Nucleated RBC Nucleated RBC % (auto) Smear Tech's Comments D-Dimer High Sensitivty 3146 Anion Gap Estim Creat Clear Calc Estimated GFR Random Glucose Lactic Acid 1.5 Calcium Magnesium Total Bilirubin AST ALT Alkaline Phosphatase Total Creatine Kinase Troponin I High Sens B-Natriuretic Peptide Total Protein Albumin Urine Color YELLOW Urine Appearance CLOUDY Urine pH 5.5 Ur Specific Douglas 1.025 Urine Protein 2+ H Urine Glucose (UA) NEG Urine Ketones NEG Urine Blood 3+ H Urine Nitrite POS H Ur Leukocyte Esterase 3+ H Urine RBC 1-4 Urine WBC 76-150 H Ur Squamous Epith Cells 1+ Urine Bacteria 1+ COVID-19 (SHARAD) COVID-19 Clin Com Influenza Type A (SHAAN) Influenza Type B (SHAAN) Influenza A & B Note Imaging Radiologist's Impressions: Impressions Chest X-Ray 08/22/21 20:16 IMPRESSION: Limited study. No acute finding. Prominent infrahilar region on the right of uncertain etiology. This could be due to rotation and altered positioning. Recommend PA and lateral films when the patient is able. Cervical Spine CT 08/22/21 20:32 IMPRESSION: Negative acute noncontrast CT of the brain. No fracture or dislocation of the cervical spine Head CT 08/22/21 20:32 IMPRESSION: Negative acute noncontrast CT of the brain. No fracture or dislocation of the cervical spine Chest CT 08/22/21 22:41 IMPRESSION: 1. No acute findings in the chest. No airspace consolidation. 2. Mild centrilobular and paraseptal pulmonary edema. Mild bronchial wall thickening and intraluminal bronchial secretions are nonspecific but can be seen with chronic bronchitis.. Assessment and Plan (1) Sepsis: Status: Acute (2) Acute kidney injury: Status: Acute (3) UTI (urinary tract infection): Status: Acute (4) Rhabdomyolysis: Status: Acute (5) Falls: Status: Acute Plan 71-year-old male presents to the hospital with tachycardia, tachypnea, fever, found to have UTI # sepsis - secondary to UTI - febrile, tachycardic, tachypneic - normal lactic acid - will treat with IV antibiotics, follow cultures, IV fluids # UTI - positive UA - symptomatic - treat with IV antibiotics - follow cultures # CRISTIANA on CKD - likely secondary to UTI and sepsis - will treat with IV fluids - follow BMP - baseline around 1.5-1.6 # rhabdomyolysis - likely secondary to frequent falls - unclear etiology for falling - will treat with IV fluids - follow CPK # falls - will consult PT OT # HTN - on the softer side - hold amlodipine DVT prophylaxis: Heparin subQ Given sepsis, UTI, as well as CRISTIANA on CKD, patient will require and medically necessary to night admission to the hospital for further management and monitoring Quality Stroke Does the patient have a stroke diagnosis?: No VTE Prior VTE?: No VTE Risk Level:: Medical - moderate - high VTE Device Contraindication: Treatment Not Indicated VTE Drug Contraindication: N/A - Med Ordered
[2021-08-22 23:44] VITALS: BP 122/64; PULSE 123; RESP 22; TEMP 38.9; O2SAT 94
[2021-08-23] VITALS (9 sets, daily range): BP systolic 97–140; BP diastolic 50–66; PULSE 74–128; RESP 16–20; TEMP 36.5–37.4; O2SAT 94–98; BMI 24.2
[2021-08-23] MEDS: Acetaminophen 325 MG TABLET 650 MG PO (00:23)
[2021-08-23] MEDS: Heparin Sodium,Porcine 5,000 UNIT/ML VIAL 5000 UNIT SUBCUT ×3 (00:23→23:12)
[2021-08-23 00:40] LABS: Lactic Acid 1.6 mmol/L (0.5-2.0)
[2021-08-23 00:51] LABS: Troponin-I High Sensitivity 53.6 ng/L (<3.5-35.0)
[2021-08-23] MEDS: Lactated Ringers 1,000 ML 80 ML IVCONT ×3 (02:08→23:13)
[2021-08-23 06:08] LABS: Hematocrit 30.4 % (42.0-52.0); Hemoglobin 9.5 g/dl (14.0-18.0); Mean Corpuscular HGB Conc 31.3 g/dl (31.0-36.0); Mean Corpuscular Hemoglobin 29.6 pg (27.0-33.0); Mean Corpuscular Volume 94.7 fL (80.0-98.0); Mean Platelet Volume 9.8 fL (9.4-12.4); Red Blood Count 3.21 X10*6/uL (4.60-5.80); White Blood Count 5.1 X10*3/uL (4.8-10.8)
[2021-08-23 06:10] LABS: Platelet Count 97 X10*3/uL (160-400)
[2021-08-23 06:41] LABS: Acanthocytes 1+ (0-2) /OIF; Band Neutrophils Percent 19 % (3-5); Basophils Abs Manual 0.1 X10*3/uL (0.0-0.2); Basophils Percent Manual 1 % (0-2); Dohle Bodies PRESENT; Lymphocytes Absolute Manual 0.3 X10*3/uL (1.2-4.9); Lymphocytes Percent Manual 5 % (20-40); Monocytes Absolute Manual 0.2 X10*3/uL (0.1-1.2); Monocytes Percent Manual 3 % (2-11); Neutrophils Absolute Manual 4.6 X10*3/uL (2.0-8.3); Neutrophils Percent Manual 72 % (45-73); Ovalocytes 1+ (5-14) /OIF; Platelet Estimate SLIGHTLY DECREASED (NORMAL); Platelet Morphology Comment NORMAL; RBC Morphology NOTED; Toxic Vacuolation PRESENT
[2021-08-23 06:44] LABS: Anion Gap 15 (12-20); Blood Urea Nitrogen 45 mg/dL (9-16); Calcium 7.3 mg/dL (8.4-10.2); Carbon Dioxide 18 mmol/L (22-29); Chloride 114 mmol/L (96-108); Creatinine Clr Calc Pharmacy 34.9; Estimated Glomerular Filt Rate 30; Glucose Random 91 mg/dL (60-115); Potassium 3.8 mmol/L (3.3-5.1); Sodium 143 mmol/L (135-145)
[2021-08-23 09:01] LABS: Vitamin B12 565 pg/mL (200-900)
--- NOTE | 2021-08-23 09:19 | MHC.CM.PN ---
PT REPORTS HE LIVES WITH HIS AND IS FULLY INDEPENDENT PT DENIES USE OF DME OR HOME SERVICES PT REPORTS HE HAS A HCP COMPLETED NAMING HIS HIS AGENT-COPY REQUESTED PCP: MICHEL BAL. PT REPORTS HE IS A SERVICE CONNECTED HOWEVER HAS BEEN UNABLE TO CONNECT WITH SERVICES SINCE THEY CLOSED [facility] PT REPORTS HE IS NOT COVID-19 VACCINATED IMM DELIVERED DC PLAN IS HOME WITH NO SERVICES TO TRANSPORT
[2021-08-23] MEDS: Cholecalciferol (Vitamin D3) 25 MCG TABLET PO (09:50)
[2021-08-23] MEDS: Cyanocobalamin (Vitamin B-12) 1,000 MCG TABLET 1000 MCG PO (09:50)
--- NOTE | 2021-08-23 10:06 | P.PNIM_ITS ---
Subjective Subjective Date of Service: 08/23/21 Interval History: seen and examined this morning follow up for UTI, CRISTIANA, rhabdo denies abdominal pain, nausea or vomiting Review of Systems Review of Systems: Yes all other systems are reviewed and are negative Constitutional Constitutional: Denies chills and Denies fever(s) Cardiovascular Cardiovascular: Denies chest pain, Denies palpitations and Denies dyspnea Respiratory Respiratory: Denies cough and Denies dyspnea Gastrointestinal Gastrointestinal: Denies abdominal pain, Denies nausea and Denies vomiting Endocrine Endocrine: Denies palpitations Physical Exam Vital Signs: Vital Signs: Last Vital Signs Temp 97.8 F 08/23/21 07:41 Pulse 96 08/23/21 08:49 Resp 16 08/23/21 07:41 BP 110/57 L 08/23/21 08:49 Pulse Ox 98 08/23/21 08:49 BMI result Body Mass Index 24.2 Const: General: comfortable, no acute distress, alert and awake Nutritional Appearance: average body habitus Orientation/consciousness: patient oriented x3 Resp: Effort & Inspection: normal respiratory effort and able to speak in complete sentences Auscultation: clear to auscultation bilaterally Cardio: Rate: regular rate Heart sounds: S1 normal heart sound present and S2 normal heart sound present GI: Inspection: No distended Palpation (GI): Soft to palpation and nontender Neuro: General: patient oriented x3 Extrem: General: Yes no pedal edema Objective Data Active Medications Acetaminophen (Acetaminophen 325 Mg Tablet) 650 mg PO Q6H PRN PRN Reason: Pain, Mild (Pain Scale 1-3) Last Admin: 08/23/21 00:23 Dose: 650 mg Documented by: SAURAV Cyanocobalamin (Cyanocobalamin (Vitamin B-12) 1,000 Mcg Tablet) 1,000 mcg PO DAILY [facility] Last Admin: 08/23/21 09:50 Dose: 1,000 mcg Documented by: ANDRÉS Docusate Sodium (Docusate Sodium 100 Mg Capsule) 100 mg PO DAILY PRN PRN Reason: Constipation Heparin Sodium (Porcine) (Heparin Sodium,Porcine 5,000 Unit/Ml Vial) 5,000 unit SUBCUT Q12H [facility] Last Admin: 08/23/21 09:50 Dose: 5,000 unit Documented by: ANDRÉS Ceftriaxone Sodium 1 gm/ (Sodium Chloride) 50 mls @ 100 mls/hr IV Q24H [facility] Lactated Ringer's (Lr) 1,000 mls @ 80 mls/hr IVCONT .[id number] [facility] Last Admin: 08/23/21 02:08 Dose: 80 mls/hr Documented by: JORJE Ondansetron HCl (Ondansetron Hcl 4 Mg/2 Ml Vial) 4 mg IVPUSH Q8H PRN PRN Reason: Nausea and Vomiting Pharmacy Consult (Consult Rx Perform Med Rec) 1 each MISCELLANE ONCE PRN PRN Reason: Consult order Sodium Chloride (0.9 % Sodium Chloride Flush 3 Ml Syringe) 3 ml IVFLUSH QSHIFT [facility] Last Admin: 08/23/21 09:58 Dose: Not Given Documented by: ANDRÉS Non-Admin Reason: IV Running Vitamin D (Cholecalciferol (Vitamin D3) 25 Mcg Tablet) 25 mcg PO DAILY [facility] Last Admin: 08/23/21 09:50 Dose: 25 mcg Documented by: ANDRÉS Labs CBC & Chem 7: 08/23/21 05:31 08/23/21 05:31 Labs: Laboratory Results - last 24 hr 08/22/21 08/22/21 08/22/21 20:47 20:47 20:48 MCV 93.0 MCH 29.8 MCHC 32.1 RDW 17.0 H Plt Count 119 L D MPV 9.5 Immature Gran % (Auto) 0.9 H Neut % (Auto) 93.2 H Lymph % (Auto) 2.6 L [place] % (Auto) 3.2 Eos % (Auto) 0.0 Baso % (Auto) 0.1 Lymph # (Auto) 0.2 L [place] # (Auto) 0.3 Eos # (Auto) 0.0 Baso # (Auto) 0.0 Abs Immat Gran (auto) 0.07 H Absolute Neuts (auto) 7.7 Absolute Nucleated RBC 0.000 Nucleated RBC % (auto) 0.0 Neutrophils % (Manual) Band Neutrophils % Lymphocytes % (Manual) Monocytes % (Manual) Basophils % (Manual) Abs Neuts (Manual) Lymphocytes # (Manual) Monocytes # (Manual) Basophils # (Manual) Toxic Vacuolation Dohle Bodies Platelet Estimate Plt Morphology Comment RBC Morphology Ovalocytes Acanthocytes (Spur) Smear Tech's Comments VERIFIED D-Dimer High Sensitivty Anion Gap Estim Creat Clear Calc Estimated GFR Random Glucose Lactic Acid Calcium Magnesium Total Bilirubin AST ALT Alkaline Phosphatase Total Creatine Kinase Troponin I High Sens B-Natriuretic Peptide 279 H Total Protein Albumin Vitamin B12 565 Urine Color Urine Appearance Urine pH Ur Specific [place] Urine Protein Urine Glucose (UA) Urine Ketones Urine Blood Urine Nitrite Ur Leukocyte Esterase Urine RBC Urine WBC Ur Squamous Epith Cells Urine Bacteria COVID-19 (SHARAD) COVID-19 Clin Com Influenza Type A (SHAAN) Influenza Type B (SHAAN) Influenza A & B Note 08/22/21 08/22/21 08/22/21 20:48 20:48 20:48 MCV MCH MCHC RDW Plt Count MPV Immature Gran % (Auto) Neut % (Auto) Lymph % (Auto) [place] % (Auto) Eos % (Auto) Baso % (Auto) Lymph # (Auto) [place] # (Auto) Eos # (Auto) Baso # (Auto) Abs Immat Gran (auto) Absolute Neuts (auto) Absolute Nucleated RBC Nucleated RBC % (auto) Neutrophils % (Manual) Band Neutrophils % Lymphocytes % (Manual) Monocytes % (Manual) Basophils % (Manual) Abs Neuts (Manual) Lymphocytes # (Manual) Monocytes # (Manual) Basophils # (Manual) Toxic Vacuolation Dohle Bodies Platelet Estimate Plt Morphology Comment RBC Morphology Ovalocytes Acanthocytes (Spur) Smear Tech's Comments D-Dimer High Sensitivty Anion Gap 16 Estim Creat Clear Calc 30.4 Estimated GFR 25 Random Glucose 113 D Lactic Acid Calcium 8.2 L D Magnesium 2.3 Total Bilirubin 0.8 AST 105 H ALT 30 Alkaline Phosphatase 50 Total Creatine Kinase 6336 H D Troponin I High Sens 64.0 H B-Natriuretic Peptide Total Protein 5.6 L Albumin 3.4 L Vitamin B12 Urine Color Urine Appearance Urine pH Ur Specific [place] Urine Protein Urine Glucose (UA) Urine Ketones Urine Blood Urine Nitrite Ur Leukocyte Esterase Urine RBC Urine WBC Ur Squamous Epith Cells Urine Bacteria COVID-19 (SHARAD) COVID-19 Clin Com Influenza Type A (SHAAN) Negative Influenza Type B (SHAAN) Negative Influenza A & B Note See Note 08/22/21 08/22/21 08/22/21 20:48 20:48 20:48 MCV MCH MCHC RDW Plt Count MPV Immature Gran % (Auto) Neut % (Auto) Lymph % (Auto) [place] % (Auto) Eos % (Auto) Baso % (Auto) Lymph # (Auto) [place] # (Auto) Eos # (Auto) Baso # (Auto) Abs Immat Gran (auto) Absolute Neuts (auto) Absolute Nucleated RBC Nucleated RBC % (auto) Neutrophils % (Manual) Band Neutrophils % Lymphocytes % (Manual) Monocytes % (Manual) Basophils % (Manual) Abs Neuts (Manual) Lymphocytes # (Manual) Monocytes # (Manual) Basophils # (Manual) Toxic Vacuolation Dohle Bodies Platelet Estimate Plt Morphology Comment RBC Morphology Ovalocytes Acanthocytes (Spur) Smear Tech's Comments D-Dimer High Sensitivty 3146 Anion Gap Estim Creat Clear Calc Estimated GFR Random Glucose Lactic Acid 1.5 Calcium Magnesium Total Bilirubin AST ALT Alkaline Phosphatase Total Creatine Kinase Troponin I High Sens B-Natriuretic Peptide Total Protein Albumin Vitamin B12 Urine Color Urine Appearance Urine pH Ur Specific [place] Urine Protein Urine Glucose (UA) Urine Ketones Urine Blood Urine Nitrite Ur Leukocyte Esterase Urine RBC Urine WBC Ur Squamous Epith Cells Urine Bacteria COVID-19 (SHARAD) Negative COVID-19 Clin Com See Note Influenza Type A (SHAAN) Influenza Type B (SHAAN) Influenza A & B Note 08/22/21 08/23/21 08/23/21 22:09 00:25 00:25 MCV MCH MCHC RDW Plt Count MPV Immature Gran % (Auto) Neut % (Auto) Lymph % (Auto) [place] % (Auto) Eos % (Auto) Baso % (Auto) Lymph # (Auto) [place] # (Auto) Eos # (Auto) Baso # (Auto) Abs Immat Gran (auto) Absolute Neuts (auto) Absolute Nucleated RBC Nucleated RBC % (auto) Neutrophils % (Manual) Band Neutrophils % Lymphocytes % (Manual) Monocytes % (Manual) Basophils % (Manual) Abs Neuts (Manual) Lymphocytes # (Manual) Monocytes # (Manual) Basophils # (Manual) Toxic Vacuolation Dohle Bodies Platelet Estimate Plt Morphology Comment RBC Morphology Ovalocytes Acanthocytes (Spur) Smear Tech's Comments D-Dimer High Sensitivty Anion Gap Estim Creat Clear Calc Estimated GFR Random Glucose Lactic Acid 1.6 Calcium Magnesium Total Bilirubin AST ALT Alkaline Phosphatase Total Creatine Kinase Troponin I High Sens 53.6 H B-Natriuretic Peptide Total Protein Albumin Vitamin B12 Urine Color YELLOW Urine Appearance CLOUDY Urine pH 5.5 Ur Specific [place] 1.025 Urine Protein 2+ H Urine Glucose (UA) NEG Urine Ketones NEG Urine Blood 3+ H Urine Nitrite POS H Ur Leukocyte Esterase 3+ H Urine RBC 1-4 Urine WBC 76-150 H Ur Squamous Epith Cells 1+ Urine Bacteria 1+ COVID-19 (SHARAD) COVID-19 Clin Com Influenza Type A (SHAAN) Influenza Type B (SHAAN) Influenza A & B Note 08/23/21 08/23/21 05:31 05:31 MCV 94.7 MCH 29.6 MCHC 31.3 RDW 17.0 H Plt Count 97 L MPV 9.8 Immature Gran % (Auto) Cancelled Neut % (Auto) Cancelled Lymph % (Auto) Cancelled [place] % (Auto) Cancelled Eos % (Auto) Cancelled Baso % (Auto) Cancelled Lymph # (Auto) Cancelled [place] # (Auto) Cancelled Eos # (Auto) Cancelled Baso # (Auto) Cancelled Abs Immat Gran (auto) Cancelled Absolute Neuts (auto) Cancelled Absolute Nucleated RBC 0.000 Nucleated RBC % (auto) 0.0 Neutrophils % (Manual) 72 Band Neutrophils % 19 H Lymphocytes % (Manual) 5 L Monocytes % (Manual) 3 Basophils % (Manual) 1 Abs Neuts (Manual) 4.6 Lymphocytes # (Manual) 0.3 L Monocytes # (Manual) 0.2 Basophils # (Manual) 0.1 Toxic Vacuolation PRESENT Dohle Bodies PRESENT Platelet Estimate SLIGHTLY DECREASED Plt Morphology Comment NORMAL RBC Morphology NOTED Ovalocytes 1+ (5-14) Acanthocytes (Spur) 1+ (0-2) Smear Tech's Comments D-Dimer High Sensitivty Anion Gap 15 Estim Creat Clear Calc 34.9 Estimated GFR 30 Random Glucose 91 Lactic Acid Calcium 7.3 L D Magnesium Total Bilirubin AST ALT Alkaline Phosphatase Total Creatine Kinase 8763 H D Troponin I High Sens B-Natriuretic Peptide Total Protein Albumin Vitamin B12 Urine Color Urine Appearance Urine pH Ur Specific [place] Urine Protein Urine Glucose (UA) Urine Ketones Urine Blood Urine Nitrite Ur Leukocyte Esterase Urine RBC Urine WBC Ur Squamous Epith Cells Urine Bacteria COVID-19 (SHARAD) COVID-19 Clin Com Influenza Type A (SHAAN) Influenza Type B (SHAAN) Influenza A & B Note Microbiology Microbiology Results: Microbiology 08/22/21 22:31 Urine Culture - Preliminary Urine Catheterized - [place] Catheter Culture too young to evaluate. Assessment and Plan (1) UTI (urinary tract infection): Status: Acute (2) Rhabdomyolysis: Status: Acute (3) Sepsis: Status: Acute (4) Acute kidney injury: Status: Acute Plan This is a 71-year-old male with history of CHF, CKD, prostate cancer, radi ation cystitis, HTN, HLD who presented to the hospital with dysuria found to have UTI, CRISTIANA, rhabdo sepsis secondary to UTI met with fever, tachycardia and tachypnea normal lactic acid UTI - continue IV ceftriaxone - follow urine cultures CRISTIANA on CKD3 creatinine down from 2.51 to 2.19 baseline around 1.5-1.6 - continue IV fluids - follow BMP rhabdomyolysis CPK trending up slightly - ?secondary to falls - continue IV fluids - follow CPK thrombocytopenia may be secondary to sepsis follow CBC falls seen by PT - rec STR on discharge HTN - BP on the softer side - hold amlodipine HLD hold statin DVT prophylaxis:? Heparin subQ Attending: dr. centeno Given sepsis, UTI, as well as CRISTIANA on CKD, patient requires ongoing inpatient hospitalization for IV fluid and IV antibiotics Quality Stroke Does the patient have a stroke diagnosis?: No VTE Prior VTE?: No VTE Risk Level:: Medical - moderate - high VTE Device Contraindication: Treatment Not Indicated VTE Drug Contraindication: N/A - Med Ordered
--- NOTE | 2021-08-23 14:30 | MHC.CM.PN ---
Addendum entered by Alina Cantor 08/23/21 16:21: accepted by [facility] and tre at [place] [facility]/ want [facility] , [facility] liason to call (i have permission from ). not covid vacinated , per hospitals[facility] at morning rounds possible discharge sat, if labs cx are ok. uploaded health care proxy to all scripts 7 pages and placed a copy in the hard chart. 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 HE HAS NOT BEEN COVID VACINATED .
[2021-08-23] MEDS: cefTRIAXone sodium 1 GM in 0.9 % Sodium Chloride 50 ML IV (20:30)
[2021-08-23] MEDS: 0.9 % Sodium Chloride Flush 3 ML SYRINGE IVFLUSH (23:13)
[2021-08-24 03:21] VITALS: BP 133/69; PULSE 110; RESP 19; TEMP 36.4; O2SAT 95
[2021-08-24] MEDS: Lactated Ringers 1,000 ML 80 ML IVCONT ×3 (06:06→19:38)
[2021-08-24 06:18] LABS: Hematocrit 32.8 % (42.0-52.0); Hemoglobin 10.3 g/dl (14.0-18.0); Mean Corpuscular HGB Conc 31.4 g/dl (31.0-36.0); Mean Corpuscular Hemoglobin 29.4 pg (27.0-33.0); Mean Corpuscular Volume 93.7 fL (80.0-98.0); Mean Platelet Volume 10.1 fL (9.4-12.4); Red Cell Distribution Width 16.8 % (11.0-16.0); White Blood Count 4.7 X10*3/uL (4.8-10.8)
[2021-08-24 06:19] LABS: Platelet Count 90 X10*3/uL (160-400)
[2021-08-24 06:49] LABS: Anion Gap 14 (12-20); Blood Urea Nitrogen 39 mg/dL (9-16); Calcium 7.6 mg/dL (8.4-10.2); Carbon Dioxide 20 mmol/L (22-29); Chloride 110 mmol/L (96-108); Creatinine Clr Calc Pharmacy 38.6; Estimated Glomerular Filt Rate 33; Glucose Random 80 mg/dL (60-115); Potassium 3.7 mmol/L (3.3-5.1); Sodium 140 mmol/L (135-145)
[2021-08-24 07:28] VITALS: BP 128/60; PULSE 95; RESP 20; TEMP 37.1; O2SAT 95
[2021-08-24] MEDS: Cyanocobalamin (Vitamin B-12) 1,000 MCG TABLET 1000 MCG PO (08:52)
[2021-08-24] MEDS: Cholecalciferol (Vitamin D3) 25 MCG TABLET PO (08:52)
--- NOTE | 2021-08-24 09:26 | HO.PM.IMPN ---
Subjective Subjective Date of Service: 08/24/21 <KAYLA La - Last Filed: 08/24/21 09:35> 08/24/21 <Wilbert Horton MD - Last Filed: 08/24/21 15:12> Interval History: seen and examined this morning follow up for sepsis/UTI/CRISTIANA blood cultures positive for GNR Patient denies abdominal pain, back pain, nausea or vomiting He does report chills <KAYLA La - Last Filed: 08/24/21 09:35> Review of Systems Review of Systems: Yes all other systems are reviewed and are negative <KAYLA La - Last Filed: 08/24/21 09:35> Constitutional Constitutional: Reports chills and Denies fever(s) <KAYLA La - Last Filed: 08/24/21 09:35> Cardiovascular Cardiovascular: Denies chest pain, Denies palpitations and Denies dyspnea <KALYA La - Last Filed: 08/24/21 09:35> Respiratory Respiratory: Denies cough and Denies dyspnea <KAYLA La - Last Filed: 08/24/21 09:35> Gastrointestinal Gastrointestinal: Denies abdominal pain, Denies nausea and Denies vomiting <KAYLA La - Last Filed: 08/24/21 09:35> Genitourinary Genitourinary: Reports dysuria and Reports urinary frequency <KAYLA La - Last Filed: 08/24/21 09:35> Endocrine Endocrine: Denies palpitations <KAYLA La - Last Filed: 08/24/21 09:35> Physical Exam Vital Signs: Vital Signs: Last Vital Signs Temp 98.7 F 08/24/21 07:28 Pulse 95 08/24/21 07:28 Resp 20 08/24/21 07:28 BP 128/60 08/24/21 07:28 Pulse Ox 95 08/24/21 07:28 BMI result Body Mass Index 24.2 <KAYLA La Last Filed: 08/24/21 09:35> Const: General: comfortable, no acute distress, alert and awake <KAYLA La - Last Filed: 08/24/21 09:35> Nutritional Appearance: average body habitus <KAYLA La - Last Filed: 08/24/21 09:35> Orientation/consciousness: patient oriented x3 <KAYLA La Last Filed: 08/24/21 09:35> Resp: Effort & Inspection: normal respiratory effort and able to speak in complete sentences <KAYLA La Last Filed: 08/24/21 09:35> Auscultation: clear to auscultation bilaterally <KAYLA La - Last Filed: 08/24/21 09:35> Cardio: Rate: regular rate <KAYLA La Last Filed: 08/24/21 09:35> Heart sounds: S1 normal heart sound present and S2 normal heart sound present <KAYLA La Last Filed: 08/24/21 09:35> GI: Inspection: No distended <KAYLA La - Last Filed: 08/24/21 09:35> Palpation (GI): Soft to palpation and nontender <KAYLA La - Last Filed: 08/24/21 09:35> Neuro: General: patient oriented x3 <KAYLA La - Last Filed: 08/24/21 09:35> Extrem: General: Yes no pedal edema <KAYLA La Last Filed: 08/24/21 09:35> Objective Data Active Medications Acetaminophen (Acetaminophen 325 Mg Tablet) 650 mg PO Q6H PRN PRN Reason: Pain, Mild (Pain Scale 1-3) Last Admin: 08/23/21 00:23 Dose: 650 mg Documented by: SAURAV Cyanocobalamin (Cyanocobalamin (Vitamin B-12) 1,000 Mcg Tablet) 1,000 mcg PO DAILY [facility] Last Admin: 08/24/21 08:52 Dose: 1,000 mcg Documented by: RADHA Docusate Sodium (Docusate Sodium 100 Mg Capsule) 100 mg PO DAILY PRN PRN Reason: Constipation Heparin Sodium (Porcine) (Heparin Sodium,Porcine 5,000 Unit/Ml Vial) 5,000 unit SUBCUT Q12H [facility] Last Admin: 08/23/21 23:12 Dose: 5,000 unit Documented by: JORJE Ceftriaxone Sodium 1 gm/ (Sodium Chloride) 50 mls @ 100 mls/hr IV Q24H [facility] Last Infusion: 08/23/21 23:17 Dose: 0 mls/hr Documented by: JORJE Lactated Ringer's (Lr) 1,000 mls @ 125 mls/hr IVCONT .Q8H [facility] Last Admin: 08/24/21 06:06 Dose: 80 mls/hr Documented by: JORJE Ondansetron HCl (Ondansetron Hcl 4 Mg/2 Ml Vial) 4 mg IVPUSH Q8H PRN PRN Reason: Nausea and Vomiting Pharmacy Consult (Consult Rx Perform Med Rec) 1 each MISCELLANE ONCE PRN PRN Reason: Consult order Sodium Chloride (0.9 % Sodium Chloride Flush 3 Ml Syringe) 3 ml IVFLUSH QSHIFT [facility] Last Admin: 08/24/21 08:32 Dose: Not Given Documented by: AUSTIN Non-Admin Reason: IV Running Vitamin D (Cholecalciferol (Vitamin D3) 25 Mcg Tablet) 25 mcg PO DAILY [facility] Last Admin: 08/24/21 08:52 Dose: 25 mcg Documented by: DEEPJ <KAYLA La - Last Filed: 08/24/21 09:35> Labs CBC & Chem 7: : 08/24/21 05:21 08/24/21 05:21 <KAYLA La - Last Filed: 08/24/21 09:35> Labs: Laboratory Results - last 24 hr 08/22/21 08/23/21 08/24/21 20:48 05:31 05:21 MCV MCH MCHC RDW Plt Count MPV Absolute Nucleated RBC Nucleated RBC % (auto) Anion Gap 14 Creatinine 2.51 H 2.19 H 1.98 H Estim Creat Clear Calc 38.6 Estimated GFR 33 Random Glucose 80 Calcium 7.6 L Total Creatine Kinase 5831 H 08/24/21 05:21 MCV 93.7 MCH 29.4 MCHC 31.4 RDW 16.8 H Plt Count 90 L MPV 10.1 Absolute Nucleated RBC 0.000 Nucleated RBC % (auto) 0.0 Anion Gap Creatinine Estim Creat Clear Calc Estimated GFR Random Glucose Calcium Total Creatine Kinase <KAYLA La - Last Filed: 08/24/21 09:35> Microbiology Microbiology Results: Microbiology 08/22/21 20:48 Blood Culture - Preliminary Blood - Venous Gram negative [email or web address] 08/22/21 20:47 Blood Culture - Preliminary Blood - Venous Gram negative [email or web address] 08/22/21 22:31 Urine Culture - Preliminary Urine Catheterized - [place] Catheter Culture too young to evaluate. <KAYLA La - Last Filed: 08/24/21 09:35> Assessment and Plan (1) Rhabdomyolysis: Status: Acute <KAYLA La - Last Filed: 08/24/21 09:35> (2) UTI (urinary tract infection): Status: Acute <KAYLA La - Last Filed: 08/24/21 09:35> (3) Sepsis: Status: Acute <KALYA La - Last Filed: 08/24/21 09:35> (4) Acute kidney injury: Status: Acute <KAYLA La - Last Filed: 08/24/21 09:35> Plan This is a 71-year-old male with history of CHF, CKD, prostate cancer, radiation cystitis, HTN, HLD who presented to the hospital with dysuria found to have UTI, CRISTIANA, rhabdo sepsis secondary to UTI met with fever, tachycardia and tachypnea severe features with thrombocytopenia and creatinine above 2 initially normal lactic acid GNR bacteremia secondary to UTI Continue IV ceftriaxone day #2 Follow final culture results ID consult pending CRISTIANA on CKD3 creatinine down from 2.51 to 1.98 baseline around 1.5-1.6 - continue IV fluids - follow BMP rhabdomyolysis CPK trending down to 5831 - ?secondary to falls - continue IV fluids - follow CPK thrombocytopenia may be secondary to sepsis follow CBC falls seen by PT - rec STR on discharge HTN - BP on the softer side - hold amlodipine HLD hold statin DVT prophylaxis:? Heparin subQ Attending: dr. horton patient requires ongoing inpatient hospitalization due to sepsis/ bacteremia / UTI requiring IV antibiotics and CRISTIANA requiring IVF <KAYLA La - Last Filed: 08/24/21 09:35> Quality Stroke Does the patient have a stroke diagnosis?: No <KAYLA La - Last Filed: 08/24/21 09:35> VTE Prior VTE?: No <KAYLA La - Last Filed: 08/24/21 09:35> VTE Risk Level:: Medical - moderate - high <KAYLA La - Last Filed: 08/24/21 09:35> VTE Device Contraindication: Treatment Not Indicated <KAYLA La - Last Filed: 08/24/21 09:35> VTE Drug Contraindication: N/A - Med Ordered <KAYLA La - Last Filed: 08/24/21 09:35>
[2021-08-24] MEDS: Heparin Sodium,Porcine 5,000 UNIT/ML VIAL 5000 UNIT SUBCUT ×2 (10:34→23:21)
[2021-08-24 12:00] VITALS: BP 108/64; PULSE 120; RESP 18; TEMP 36.6; O2SAT 97
[2021-08-24 15:11] VITALS: BP 117/67; PULSE 119; RESP 20; TEMP 38.3; O2SAT 95
[2021-08-24] MEDS: Acetaminophen 325 MG TABLET 650 MG PO ×2 (15:23→23:21)
[2021-08-24 16:23] VITALS: TEMP 37.5
[2021-08-24 19:14] VITALS: BP 99/59; PULSE 116; RESP 20; TEMP 37.7; O2SAT 99
[2021-08-24] MEDS: cefTRIAXone sodium 1 GM in 0.9 % Sodium Chloride 50 ML IV (19:38)
[2021-08-25] VITALS (7 sets, daily range): BP systolic 98–121; BP diastolic 52–66; PULSE 92–127; RESP 18–20; TEMP 36.5–37.9; O2SAT 94–99
[2021-08-25 00:35] LABS: Lactic Acid 0.8 mmol/L (0.5-2.0)
[2021-08-25] MEDS: Cholecalciferol (Vitamin D3) 25 MCG TABLET PO (08:05)
[2021-08-25] MEDS: 0.9 % Sodium Chloride Flush 3 ML SYRINGE IVFLUSH ×2 (08:05→16:22)
[2021-08-25] MEDS: Cyanocobalamin (Vitamin B-12) 1,000 MCG TABLET 1000 MCG PO (08:05)
--- NOTE | 2021-08-25 10:13 | P.PNIM_ITS ---
Subjective Subjective Date of Service: 08/25/21 <KAYLA La - Last Filed: 08/25/21 12:25> 08/25/21 <Wilbert Horton MD - Last Filed: 08/25/21 16:04> Interval History: seen and examined this morning follow up for UTI/bacteremia still reporting chills, fever 100.9 yesterday afternoon no abdominal pain, nausea or vomiting <KAYLA La - Last Filed: 08/25/21 12:25> Review of Systems Review of Systems: Yes all other systems are reviewed and are negative <KAYLA La - Last Filed: 08/25/21 12:25> Constitutional Constitutional: Reports chills and Reports fever(s) <KAYLA La - Last Filed: 08/25/21 12:25> Cardiovascular Cardiovascular: Denies chest pain, Denies palpitations and Denies dyspnea <KAYLA La - Last Filed: 08/25/21 12:25> Respiratory Respiratory: Denies cough and Denies dyspnea <KAYLA La - Last Filed: 08/25/21 12:25> Gastrointestinal Gastrointestinal: Denies abdominal pain, Denies nausea and Denies vomiting <KAYLA La - Last Filed: 08/25/21 12:25> Endocrine Endocrine: Denies palpitations <KAYLA La - Last Filed: 08/25/21 12:25> Physical Exam Vital Signs: Vital Signs: Last Vital Signs Temp 98.3 F 08/25/21 07:23 Pulse 104 H 08/25/21 07:23 Resp 18 08/25/21 07:23 BP 120/58 L 08/25/21 07:23 Pulse Ox 98 08/25/21 07:23 BMI result Body Mass Index 24.2 <KYALA La - Last Filed: 08/25/21 12:25> Const: General: comfortable, no acute distress, alert and awake <KAYLA La Last Filed: 08/25/21 12:25> Nutritional Appearance: average body habitus <KAYLA La - Last Filed: 08/25/21 12:25> Orientation/consciousness: patient oriented x3 <KAYLA La - Last Filed: 08/25/21 12:25> Resp: Other: starting to sound congested <KAYLA La - Last Filed: 08/25/21 12:25> Effort & Inspection: normal respiratory effort and able to speak in complete sentences <KAYLA La - Last Filed: 08/25/21 12:25> Cardio: Rate: regular rate <KAYLA La - Last Filed: 08/25/21 12:25> Heart sounds: S1 normal heart sound present and S2 normal heart sound present <KAYLA La - Last Filed: 08/25/21 12:25> GI: Inspection: No distended <KAYLA La - Last Filed: 08/25/21 12:25> Palpation (GI): Soft to palpation and nontender <KAYLA La - Last Filed: 08/25/21 12:25> Neuro: General: patient oriented x3 <KAYLA La - Last Filed: 08/25/21 12:25> Extrem: Other: right great toe/dorsal surface right foot with ecchymosis/mild swelling; great toe tender to palpation <KAYLA La - Last Filed: 08/25/21 12:25> General: Yes no pedal edema <KAYLA La - Last Filed: 08/25/21 12:25> Objective Data Active Medications Acetaminophen (Acetaminophen 325 Mg Tablet) 650 mg PO Q6H PRN PRN Reason: Pain, Mild (Pain Scale 1-3) Last Admin: 08/24/21 23:21 Dose: 650 mg Documented by: CHEIKH Cyanocobalamin (Cyanocobalamin (Vitamin B-12) 1,000 Mcg Tablet) 1,000 mcg PO DAILY [facility] Last Admin: 08/25/21 08:05 Dose: 1,000 mcg Documented by: A[place]IN Docusate Sodium (Docusate Sodium 100 Mg Capsule) 100 mg PO DAILY PRN PRN Reason: Constipation Heparin Sodium (Porcine) (Heparin Sodium,Porcine 5,000 Unit/Ml Vial) 5,000 unit SUBCUT Q12H [facility] Last Admin: 08/24/21 23:21 Dose: 5,000 unit Documented by: CHEIKH Ceftriaxone Sodium 1 gm/ (Sodium Chloride) 50 mls @ 100 mls/hr IV Q24H [facility] Last Infusion: 08/24/21 20:35 Dose: 0 mls/hr Documented by: CHEIKH Ondansetron HCl (Ondansetron Hcl 4 Mg/2 Ml Vial) 4 mg IVPUSH Q8H PRN PRN Reason: Nausea and Vomiting Pharmacy Consult (Consult Rx Perform Med Rec) 1 each MISCELLANE ONCE PRN PRN Reason: Consult order Sodium Chloride (0.9 % Sodium Chloride Flush 3 Ml Syringe) 3 ml IVFLUSH QSHIFT [facility] Last Admin: 08/25/21 08:05 Dose: 3 ml Documented by: [place] Vitamin D (Cholecalciferol (Vitamin D3) 25 Mcg Tablet) 25 mcg PO DAILY [facility] Last Admin: 08/25/21 08:05 Dose: 25 mcg Documented by: AUSTIN <KAYLA La - Last Filed: 08/25/21 12:25> Labs CBC & Chem 7: : 08/25/21 10:41 08/25/21 10:41 <KAYLA La - Last Filed: 08/25/21 12:25> Labs: Laboratory Results - last 24 hr 08/25/21 00:04 Lactic Acid 0.8 <KAYLA La - Last Filed: 08/25/21 12:25> Microbiology Microbiology Results: Microbiology 08/22/21 20:47 Blood Culture - Preliminary Blood - Venous Gram negative jacobo 08/22/21 20:48 Blood Culture - Preliminary Blood - Venous Klebsiella pneumoniae 08/22/21 22:31 Urine Culture - Final Urine Catheterized - Saldana Catheter Klebsiella pneumoniae <KAYLA La - Last Filed: 08/25/21 12:25> Assessment and Plan (1) Rhabdomyolysis: Status: Acute <KAYLA La - Last Filed: 08/25/21 12:25> (2) UTI (urinary tract infection): Status: Acute <KAYLA La Last Filed: 08/25/21 12:25> (3) Sepsis: Status: Acute <KAYLA La - Last Filed: 08/25/21 12:25> (4) Acute kidney injury: Status: Acute <KAYLA La - Last Filed: 08/25/21 12:25> Plan This is a 71-year-old male with history of CHF, CKD, prostate cancer, radiation cystitis, HTN, HLD who presented to the hospital with dysuria found to have UTI, CRISTIANA, rhabdo sepsis secondary to UTI met with fever, tachycardia and tachypnea severe features with thrombocytopenia and creatinine above 2 initially normal lactic acid Klebsiella bacteremia secondary to UTI Urine culture/blood cultures growing klebsiella pneumoniae sensitive to ceftriaxone Continue IV ceftriaxone day #3 ID consult pending CRISTIANA on CKD3 creatinine down from 2.51 to 1.9 baseline around 1.5-1.8 - follow BMP rhabdomyolysis CPK trending down to 1777 from 8763 - ?secondary to falls thrombocytopenia may be secondary to sepsis platelets trending down follow CBC falls seen by PT - rec STR on discharge reporting right foot pain today, will obtain xray HTN - BP on the softer side - hold amlodipine HLD hold statin DVT prophylaxis:? Heparin subQ Attending: dr. horton patient requires ongoing inpatient hospitalization due to sepsis/ bacteremia / UTI requiring IV antibiotics/ID evaluation and CRISTIANA <KAYLA La - Last Filed: 08/25/21 12:25> Quality Stroke Does the patient have a stroke diagnosis?: No <KAYLA La - Last Filed: 08/25/21 12:25> VTE Prior VTE?: No <KAYLA La - Last Filed: 08/25/21 12:25> VTE Risk Level:: Medical - moderate - high <KAYLA La - Last Filed: 08/25/21 12:25> VTE Device Contraindication: Treatment Not Indicated <KAYLA La - Last Filed: 08/25/21 12:25> VTE Drug Contraindication: N/A - Med Ordered <KAYLA La - Last Filed: 08/25/21 12:25>
[2021-08-25 10:55] LABS: Hemoglobin 9.2 g/dl (14.0-18.0); Mean Corpuscular HGB Conc 31.7 g/dl (31.0-36.0); Mean Corpuscular Hemoglobin 29.6 pg (27.0-33.0); Mean Corpuscular Volume 93.2 fL (80.0-98.0); Mean Platelet Volume 10.8 fL (9.4-12.4); Red Blood Count 3.11 X10*6/uL (4.60-5.80); Red Cell Distribution Width 16.7 % (11.0-16.0); White Blood Count 4.4 X10*3/uL (4.8-10.8)
[2021-08-25 10:57] LABS: Platelet Count 87 X10*3/uL (160-400)
[2021-08-25 11:19] LABS: Anion Gap 13 (12-20); Blood Urea Nitrogen 31 mg/dL (9-16); Calcium 7.8 mg/dL (8.4-10.2); Carbon Dioxide 22 mmol/L (22-29); Chloride 110 mmol/L (96-108); Creatinine Clr Calc Pharmacy 40.2; Estimated Glomerular Filt Rate 35; Glucose Random 89 mg/dL (60-115); Potassium 4.1 mmol/L (3.3-5.1); Sodium 141 mmol/L (135-145)
[2021-08-25] MEDS: Lactated Ringers 1,000 ML 80 ML IVCONT (16:22)
[2021-08-25] MEDS: cefTRIAXone sodium 1 GM in 0.9 % Sodium Chloride 50 ML IV (21:30)
--- NOTE | 2021-08-25 22:11 | W.PM.IDCN ---
History of Present Illness Data of Consult Service Date: 08/24/21 Requesting physician: Wilbert Horton Primary Care Provider: Unknown Physician HPI Reason for consult: bacteremia He presents to hospital with dysuria for a week. He has chills. He has Klebsiella urine and blood. Review of Systems Review of Systems: Yes all other systems are reviewed and are negative PMFSH Past Medical History Medical History Hematuria Hypercholesteremia Hypertension Kidney disease Macular degeneration Prostate cancer Urgency incontinence Family History Family History Other No family history of coronary artery disease Family history: reviewed and not pertinent Surgical History Surgical History History of back surgery History of penile implant History of prostate surgery Social History Social History Household Members: Spouse Housing: House Do you presently have visiting nurse or other home services: No Alcohol intake: never Patient Tobacco Use Status: Current everyday Tobacco user Smoking Start Date: 06/18/61 Tobacco use type: Cigar Cigarette Packs Per Day: 0.5 Cigarettes Per Day: 10.0 Second Hand Smoke Exposure: No service: Yes Current occupational status: retired [employer] Allergies Allergy/AdvReac Type Severity Reaction Status Date / Time No Known Allergies Allergy Verified 07/16/21 10:10 [No Known Allergies*] Active Medications: Current Medications Acetaminophen (Acetaminophen 325 Mg Tablet) 650 mg PO Q6H PRN PRN Reason: Pain, Mild (Pain Scale 1-3) Last Admin: 08/24/21 23:21 Dose: 650 mg Documented by: Cyanocobalamin (Cyanocobalamin (Vitamin B-12) 1,000 Mcg Tablet) 1,000 mcg PO DAILY [facility] Last Admin: 08/25/21 08:05 Dose: 1,000 mcg Documented by: Docusate Sodium (Docusate Sodium 100 Mg Capsule) 100 mg PO DAILY PRN PRN Reason: Constipation Heparin Sodium (Porcine) (Heparin Sodium,Porcine 5,000 Unit/Ml Vial) 5,000 unit SUBCUT Q12H [facility] Last Admin: 08/25/21 21:31 Dose: Not Given Documented by: Ceftriaxone Sodium 1 gm/ (Sodium Chloride) 50 mls @ 100 mls/hr IV Q24H [facility] Last Infusion: 08/25/21 22:04 Dose: Infused Documented by: Lactated Ringer's (Lr) 1,000 mls @ 80 mls/hr IVCONT .[id number] [facility] Last Admin: 08/25/21 16:22 Dose: 80 mls/hr Documented by: Ondansetron HCl (Ondansetron Hcl 4 Mg/2 Ml Vial) 4 mg IVPUSH Q8H PRN PRN Reason: Nausea and Vomiting Pharmacy Consult (Consult Rx Perform Med Rec) 1 each MISCELLANE ONCE PRN PRN Reason: Consult order Sodium Chloride (0.9 % Sodium Chloride Flush 3 Ml Syringe) 3 ml IVFLUSH QSHIFT [facility] Last Admin: 08/25/21 21:31 Dose: Not Given Documented by: Vitamin D (Cholecalciferol (Vitamin D3) 25 Mcg Tablet) 25 mcg PO DAILY [facility] Last Admin: 08/25/21 08:05 Dose: 25 mcg Documented by: Home Medications Medication Instructions Recorded Confirmed Last Taken Type simvastatin 10 mg tablet 1 tab PO BEDTIME 02/19/21 08/22/21 08/21/21 History cholecalciferol (vitamin D3) 25 25 mcg PO DAILY 08/22/21 08/22/21 08/22/21 History mcg (1,000 unit) tablet cyanocobalamin (vitamin B-12) 1 tab PO DAILY 08/22/21 08/22/21 08/22/21 History 1,000 mcg tablet lutein 20 mg capsule 20 mg PO DAILY 08/22/21 08/22/21 08/22/21 History Physical Exam Vital Signs: Vital Signs: Last Vital Signs Temp 99.5 F 08/25/21 19:23 Pulse 104 H 08/25/21 19:23 Resp 20 08/25/21 19:23 BP 101/57 L 08/25/21 19:23 Pulse Ox 99 08/25/21 19:23 BMI result Body Mass Index 24.2 HEENT: Head: Yes normal to inspection Mouth: Normal oral and palatal mucosa present Resp: Effort & Inspection: normal respiratory effort Cardio: Rate: regular rate Rhythm: regular rhythm GI: Palpation (GI): Soft to palpation and nontender Auscultation: abnormal bowel sounds Skin: General skin exam: no rashes or lesions noted Extrem: General: Yes normal to inspection Results Labs CBC & Chem 7: 08/26/21 05:20 08/26/21 05:20 Labs: Short CBC 08/25/21 Range/Units 10:41 WBC 4.4 L (4.8-10.8) X10*3/uL Hgb 9.2 L (14.0-18.0) g/dl Hct 29.0 L (42.0-52.0) % Plt Count 87 L (160-400) X10*3/uL BMP 08/25/21 10:41 Sodium 141 Potassium 4.1 Chloride 110 H Carbon Dioxide 22 BUN 31 H Creatinine 1.90 H Calcium 7.8 L Cardiac Enzymes 08/25/21 Range/Units 10:41 Total Creatine Kinase 1777 H D (38-174) U/L Microbiology Microbiology Results: Microbiology 08/22/21 20:47 Blood - Venous Blood Culture - Preliminary Gram negative jacobo 08/22/21 20:48 Blood - Venous Blood Culture - Preliminary Klebsiella pneumoniae 08/22/21 22:31 Urine Catheterized - Saldana Catheter Urine Culture - Final Klebsiella pneumoniae Assessment and Plan (1) UTI (urinary tract infection): Qualifiers: Urinary tract infection type: site unspecified Status: Acute He has bacterial infection with Klebsiella due to UTI There is possible obstruction or other cause of infection (2) Sepsis: Status: Resolved Plan Check CT abdomen and pelvis. Continue antibiotics,Ceftriaxone
[2021-08-26] VITALS (7 sets, daily range): BP systolic 100–118; BP diastolic 51–67; PULSE 83–111; RESP 18–20; TEMP 36.1–37.3; O2SAT 95–98
--- NOTE | 2021-08-26 | ECG_ITS ---
Test Reason : congestion Blood Pressure : / mmHG Vent. Rate : 096 BPM Atrial Rate : 096 BPM P-R Int : 160 ms QRS Dur : 080 ms QT Int : 360 ms P-R-T Axes : 070 065 047 degrees QTc Int : 454 ms Normal sinus rhythm Normal ECG When compared with ECG of 22-AUG-2021 20:44, No significant change was found Referred By: Dudley Sun Electronically Signed By:JERILYN VELA
[2021-08-26] MEDS: Lactated Ringers 1,000 ML 80 ML IVCONT (02:36)
[2021-08-26 05:41] LABS: Hematocrit 26.7 % (42.0-52.0); Hemoglobin 8.6 g/dl (14.0-18.0); Mean Corpuscular HGB Conc 32.2 g/dl (31.0-36.0); Mean Platelet Volume 10.4 fL (9.4-12.4); Red Blood Count 2.87 X10*6/uL (4.60-5.80); Red Cell Distribution Width 16.6 % (11.0-16.0); White Blood Count 4.3 X10*3/uL (4.8-10.8)
[2021-08-26 05:54] LABS: Platelet Count 88 X10*3/uL (160-400)
[2021-08-26 05:58] LABS: Anion Gap 10 (12-20); Blood Urea Nitrogen 28 mg/dL (9-16); Calcium 7.5 mg/dL (8.4-10.2); Carbon Dioxide 24 mmol/L (22-29); Chloride 112 mmol/L (96-108); Creatinine Clr Calc Pharmacy 42.7; Estimated Glomerular Filt Rate 37; Glucose Random 90 mg/dL (60-115); Potassium 3.5 mmol/L (3.3-5.1); Sodium 142 mmol/L (135-145)
[2021-08-26] MEDS: Cholecalciferol (Vitamin D3) 25 MCG TABLET PO (08:15)
[2021-08-26] MEDS: Cyanocobalamin (Vitamin B-12) 1,000 MCG TABLET 1000 MCG PO (08:15)
[2021-08-26] MEDS: Heparin Sodium,Porcine 5,000 UNIT/ML VIAL 5000 UNIT SUBCUT (11:03)
--- NOTE | 2021-08-26 11:43 | P.PNIM_ITS ---
Subjective Subjective Date of Service: 08/26/21 Interval History: Last fever >36h ago. Feels well- less dizzy/lightheaded/unbalanced. No pain. Review of Systems Review of Systems: Yes all other systems are reviewed and are negative Physical Exam Vital Signs: Vital Signs: Last Vital Signs Temp 99.1 F 08/26/21 11:14 Pulse 90 08/26/21 11:14 Resp 18 08/26/21 11:14 BP 102/57 L 08/26/21 11:14 Pulse Ox 96 08/26/21 11:14 BMI result Body Mass Index 24.2 Gen: in no acute distress HEENT: sclera anicteric, pale/moist mucus membranes Neck: supple Lungs: clear to auscultation bilaterally Heart: regular rate and rhythm, no murmurs Abd: soft, non-tender, non-distended Ext: no edema Skin: warm/well-perfused, R great toe bruised Neuro: alert and oriented x3, no focal findings Psych: appropriate affect Objective Data Active Medications Acetaminophen (Acetaminophen 325 Mg Tablet) 650 mg PO Q6H PRN PRN Reason: Pain, Mild (Pain Scale 1-3) Last Admin: 08/24/21 23:21 Dose: 650 mg Documented by: CHEIKH Cyanocobalamin (Cyanocobalamin (Vitamin B-12) 1,000 Mcg Tablet) 1,000 mcg PO DAILY [facility] Last Admin: 08/26/21 08:15 Dose: 1,000 mcg Documented by: [place] Docusate Sodium (Docusate Sodium 100 Mg Capsule) 100 mg PO DAILY PRN PRN Reason: Constipation Heparin Sodium (Porcine) (Heparin Sodium,Porcine 5,000 Unit/Ml Vial) 5,000 unit SUBCUT Q12H [facility] Last Admin: 08/26/21 11:03 Dose: 5,000 unit Documented by: A[place] Ceftriaxone Sodium 1 gm/ (Sodium Chloride) 50 mls @ 100 mls/hr IV Q24H [facility] Last Infusion: 08/25/21 22:04 Dose: 0 mls/hr Documented by: CHEIKH Lactated Ringer's (Lr) 1,000 mls @ 80 mls/hr IVCONT .[id number] [facility] Last Admin: 08/26/21 02:36 Dose: 80 mls/hr Documented by: CHEIKH Ondansetron HCl (Ondansetron Hcl 4 Mg/2 Ml Vial) 4 mg IVPUSH Q8H PRN PRN Reason: Nausea and Vomiting Pharmacy Consult (Consult Rx Perform Med Rec) 1 each MISCELLANE ONCE PRN PRN Reason: Consult order Sodium Chloride (0.9 % Sodium Chloride Flush 3 Ml Syringe) 3 ml IVFLUSH QSHIFT [facility] Last Admin: 08/26/21 07:58 Dose: Not Given Documented by: AUSTIN Non-Admin Reason: IV Running Vitamin D (Cholecalciferol (Vitamin D3) 25 Mcg Tablet) 25 mcg PO DAILY [facility] Last Admin: 08/26/21 08:15 Dose: 25 mcg Documented by: AUSTIN Labs CBC & Chem 7: 08/26/21 05:20 08/26/21 05:20 Labs: Laboratory Results - last 24 hr 08/26/21 08/26/21 05:20 05:20 MCV 93.0 MCH 30.0 MCHC 32.2 RDW 16.6 H Plt Count 88 L MPV 10.4 Absolute Nucleated RBC 0.000 Nucleated RBC % (auto) 0.0 Anion Gap 10 L Estim Creat Clear Calc 42.7 Estimated GFR 37 Random Glucose 90 Calcium 7.5 L Total Creatine Kinase 790 H D Microbiology Microbiology Results: Microbiology 08/22/21 20:48 Blood Culture - Final Blood - Venous Klebsiella pneumoniae 08/22/21 20:47 Blood Culture - Final Blood - Venous Klebsiella pneumoniae 08/25/21 00:04 Blood Culture - Preliminary Blood - Venous No growth after 24 hours. 08/25/21 00:04 Blood Culture - Preliminary Blood - Venous No growth after 24 hours. 08/22/21 22:31 Urine Culture - Final Urine Catheterized - Saldana Catheter Klebsiella pneumoniae Assessment and Plan (1) Rhabdomyolysis: Status: Acute (2) UTI (urinary tract infection): Status: Acute (3) Sepsis: Status: Acute (4) Acute kidney injury: Status: Acute Plan hospital d#4 71 yo M with history of CHF, CKD, prostate cancer s/p XRT, radiation cystitis, HTN, HLD presented with dysuria admitted for severe sepsis due to UTI/bacteremia # severe sepsis # Klebsiella bacteremia, urinary source, resistant to ampicillin - ceftriaxone d#4, ID consulted, duration/route pending CT A/P # CRISTIANA/CKD3 - prerenal azotemia vs septic ATN, resolved; SCr now at baseline # rhabdomyolysis due to falls - CPK <1000 s/p IV hydration- d/c IV fluids # elevated D-dimer on admission - likely sepsis but checking V/Q to r/o PE # R great toe fracture - non-operative # thrombocytopenia - stable, due to sepsis # hx HTN - amlodipine held due to soft BP # HLD - statin # VTE ppx - UFH # dispo - STR- [facility] preferred In my clinical judgment, the patient requires continued hospitalization for the following reasons: IV antibiotics for bacteremia/sepsis Quality Stroke Does the patient have a stroke diagnosis?: No VTE Prior VTE?: No VTE Risk Level:: Medical - moderate - high VTE Device Contraindication: Treatment Not Indicated VTE Drug Contraindication: N/A - Med Ordered
--- NOTE | 2021-08-26 15:35 | MHC.CM.PN ---
nurse case briefer note electonic medical record reviewed along with case disiucssed with staff nurse and hospitl;sit . met with patient medicare imm updated patient still wants to go home if he can but undestands that physical therapy and physisican are recomending short term rehab m [facility]hoice , medicare immm up[dated discharge plan str 08/27/21 anticipated
[2021-08-26] MEDS: 0.9 % Sodium Chloride Flush 3 ML SYRINGE IVFLUSH (20:03)
[2021-08-26] MEDS: Atorvastatin Calcium 10 MG TABLET PO (20:08)
[2021-08-26] MEDS: cefTRIAXone sodium 1 GM in 0.9 % Sodium Chloride 50 ML IV (20:08)
--- NOTE | 2021-08-26 23:44 | PC.NURSE ---
Results of all tests ordered by Dr Sun reported to him, no new orders.
[2021-08-27] MEDS: Heparin Sodium,Porcine 5,000 UNIT/ML VIAL 5000 UNIT SUBCUT ×2 (00:36→11:57)
[2021-08-27] MEDS: 0.9 % Sodium Chloride Flush 3 ML SYRINGE IVFLUSH ×2 (00:36→09:09)
[2021-08-27 03:28] VITALS: BP 109/50; PULSE 95; RESP 20; TEMP 36.4; O2SAT 96
--- NOTE | 2021-08-27 07:34 | P.CDIC_ITS ---
CDI Concurrent Query Documentation Clarification: PHYSICIAN'S DOCUMENTATION REQUEST Date of Query: 08/27/21 0735 Patient Name: Keshav Ramos Admit Date: 08/22/21 Dear Doctor, A review of the medical record indicates additional documentation may be needed. Please review below and update the documentation accordingly. Clinical Indicators: Documentation in the record indicates the patient was admitted with a fracture. Risk Factors/Clinical Indicators/Treatments X-ray right foot 08/25/21: fracture proximal phalanx great toe MD progress note 08/26/21: right great toe fracture, non-operative Presented s/p fall Please provide the following additional clarification regarding the fracture: Etiology: * Traumatic * Pathologic due to other disease (please specify) * Due to combination of trauma and a pathological process but the trauma alone would not likely have been sufficient to cause the fracture * Unable to determine Type: * Open * Closed * Other (please specify) * Unable to determine Use of terms such as suspected, likely, concern for, or probable (associated with a specific diagnosis that is being evaluated, monitored, or treated as if it exists) are acceptable and can be coded in the inpatient setting, when documented at the time of discharge. Thank you, Bethany Kerr [insert CDI's credentials] Extension: [4-digit phone extension] Please use your independent medical judgment in providing your response. THIS QUERY IS PART OF THE PERMANENT MEDICAL RECORD Provider Response: Other Other Diagnosis: traumatic
--- NOTE | 2021-08-27 07:41 | P.CDIC_ITS ---
CDI Concurrent Query Documentation Clarification: PHYSICIAN'S DOCUMENTATION REQUEST Date of Query: 08/27/21 0742 Patient Name: Keshav Ramos Admit Date: 08/22/21 Dear Doctor, A review of the medical record indicates additional documentation may be needed. Please review below and update the documentation accordingly. Clinical Indicators: The diagnosis of CHF was documented on H&P 08/22/21 but is not consistently noted in subsequent documentation. Risk Factors/Clinical Indicators/Treatments CHF is documented on the H&P 08/22/21 No medications noted for CHF treatment. Please clarify the following: * CHF was present on admission and is now resolved * CHF was present on admission and is still being monitored, evaluated, or treated * CHF was ruled out * CHF is still a likely, suspected, probable diagnosis * Other (please specify) * Unable to determine Use of terms such as suspected, likely, concern for, or probable (associated with a specific diagnosis that is being evaluated, monitored, or treated as if it exists) are acceptable and can be coded in the inpatient setting, when documented at the time of discharge. Thank you, Bethany Kerr RN Extension: [phone] Please use your independent medical judgment in providing your response. THIS QUERY IS PART OF THE PERMANENT MEDICAL RECORD Provider Response: Other Other Diagnosis: unable to determine
[2021-08-27 08:00] VITALS: BP 109/59; PULSE 86; RESP 18; TEMP 36.4; O2SAT 98
[2021-08-27] MEDS: Cholecalciferol (Vitamin D3) 25 MCG TABLET PO (09:08)
[2021-08-27] MEDS: Cyanocobalamin (Vitamin B-12) 1,000 MCG TABLET 1000 MCG PO (09:08)
[2021-08-27 09:32] VITALS: BP 109/59; PULSE 86; O2SAT 98
[2021-08-27 10:46] LABS: COVID-19 Test Negative (Negative)
--- NOTE | 2021-08-27 11:09 | MHC.CM.PN ---
Addendum entered by Alina Cantor 08/27/21 12:50: I TRIED TO REACH PATIENTS TO CONFIRM TIME OF TRANSPORT [facility]IA [facility] FOR 1PM NO ANSWER AND UNABLE TO LEAVE MESSAGE ON THEIR TWO PHONE NUMBERS Original Note: NURSE CEREAL SUPERVISOR NOTE ELECTRONIC MEDICAL RECORD REIVIWED ALONG WITH CASE DISCUSSED WITH STAFF NURSE AND THE HOSPITLAIST , MET WITH PATIENT AND SPOKE WITH HIS BY TELEPHONE SPEAKER , PATIENT to be discharged today to [facility] discharge plan clinicl acceptance to [facility] today (priovate room non covid vacinated) he will be transferred [facility] today n [facility] immm updated 08/26/21 rapid covid test negative all discharge paperwork sent to them
[2021-08-27 11:35] VITALS: BP 120/59; PULSE 89; RESP 18; TEMP 36.1; O2SAT 97
--- NOTE | 2021-08-27 12:20 | P.DS_ITS ---
DS: Providers Provider Date of Service: 08/27/21 Date of admission: 08/22/21 23:42 Date of discharge: 08/27/21 Primary care physician: Jose G Dickerson MD Consults: 08/24/21 07:10 Consult to Infectious Diseases Routine Consulting Provider: Chantal Ocasio Reason for consultation: bacteremia Has provider been notified: No 08/26/21 16:52 Consult to Urology Routine Consulting Provider: Ruddy Mace Reason for consultation: Prostate abscess cannot be excluded. Small amount of air in the bladder an DS: Diagnosis Discharge Diagnosis (1) Rhabdomyolysis: Status: Acute (2) UTI (urinary tract infection): Status: Acute (3) Sepsis: Status: Acute (4) Acute worsening of stage 3 chronic kidney disease: Status: Acute (5) Closed traumatic nondisplaced fracture of phalanx of toe: Status: Acute (6) Falls: Status: Acute (7) Thrombocytopenia: Status: Acute DS: Summary Hospital Course Hospital Course: from admission history and physical by hospitalist Owen Chiang MD, 08/22/21: This is a 71-year-old male with past medical history of CHF, CKD, history of prostate cancer, HTN, HLD, who presents to the hospital with complaints of urinary symptoms.? Patient reports that he has urine adan when he pees.? This has been going on for the past 1 week.? Patient otherwise denies having any fever or chills.? He reports that he has been slipping on infusions to admit that he has been falling.? Otherwise denies any headache, change in vision, no abdominal pain nausea or vomiting, no diarrhea constipation, no chest pain, no shortness of breath, no cough, no lower extremity edema.? No orthopnea or PND. On arrival to the ED patient hemodynamically stable, found to have a temperature of 102.3 degrees rectally, heart rate of 134, respiratory rate of 28, BP of 106 or 40 a.m. satting 96% on room air Labs are significant for WBC count of 8.2, hemoglobin of 11.1, creatinine of 2.51 with baseline of around 1.5, CPK of 6336, initial troponin of 64, on repeat 53, BNP of 279, UA that is positive for nitrites, leukocyte Estrace and WBC Chest x-ray negative, chest CT negative, cervical spine his spine negative. Patient started on IV antibiotics, will be admitted for further management This 71 year-old male with history of CHF, CKD, prostate cancer s/p XRT, radiation cystitis, HTN, and HLD presented with dysuria ad was admitted for severe sepsis with thrombocytopenia due to UTI/bacteremia. Infectious Diseases was consulted. He grew ampicillin-resistant Klebsiella pneumoniae from urine and blood. He was treated with IV ceftriaxone and improved. Serum creatinine returned to baseline after IV hydration and resolution of sepsis. Rhabdomyolysis also improved with IV hydration. He was found to have a non- displaced right great toe fracture due to his falls; this was deemed nonoperative. He was discharged to [facility] for short-term rehabilitation. He should follow up with Primary Care and Nephrology upon [facility]. Repeat CBC and BMP should be done in 1 week. Time Spent with Patient Time attestation: Total time spent providing and/or coordinating discharge services: Discharge coordination time: Greater than 30 minutes Quality: Safe Use of Opioids Does Pt have an Active Cancer Diagnosis on the Problem List?: No Quality: Stroke Does the patient have a stroke diagnosis?: No Physical Exam Vital Signs: Vital Signs: Last Vital Signs Temp 97.0 F 08/27/21 11:35 Pulse 89 08/27/21 11:35 Resp 18 08/27/21 11:35 BP 120/59 L 08/27/21 11:35 Pulse Ox 97 08/27/21 11:35 BMI result Body Mass Index 24.2 Gen: in no acute distress HEENT: sclera anicteric, pale/moist mucus membranes Neck: supple Lungs: clear to auscultation bilaterally Heart: regular rate and rhythm, no murmurs Abd: soft, non-tender, non-distended Ext: no edema Skin: warm/well-perfused, R great toe bruised Neuro: alert and oriented x3, no focal findings Psych: appropriate affect DS: Data Data Completed and Pending Completed studies during hospitalization [Text1]: Laboratory Results WBC 4.3 X10*3/uL (4.8-10.8) L 08/26/21 05:20 RBC 2.87 X10*6/uL (4.60-5.80) L 08/26/21 05:20 Hgb 8.6 g/dl (14.0-18.0) L 08/26/21 05:20 Hct 26.7 % (42.0-52.0) L 08/26/21 05:20 MCV 93.0 fL (80.0-98.0) 08/26/21 05:20 MCH 30.0 pg (27.0-33.0) 08/26/21 05:20 MCHC 32.2 g/dl (31.0-36.0) 08/26/21 05:20 RDW 16.6 % (11.0-16.0) H 08/26/21 05:20 Plt Count 88 X10*3/uL (160-400) L 08/26/21 05:20 MPV 10.4 fL (9.4-12.4) 08/26/21 05:20 Immature Gran % (Auto) Cancelled 08/23/21 05:31 Neut % (Auto) Cancelled 08/23/21 05:31 Lymph % (Auto) Cancelled 08/23/21 05:31 Darke % (Auto) Cancelled 08/23/21 05:31 Eos % (Auto) Cancelled 08/23/21 05:31 Baso % (Auto) Cancelled 08/23/21 05:31 Lymph # (Auto) Cancelled 08/23/21 05:31 Darke # (Auto) Cancelled 08/23/21 05:31 Eos # (Auto) Cancelled 08/23/21 05:31 Baso # (Auto) Cancelled 08/23/21 05:31 Abs Immat Gran (auto) Cancelled 08/23/21 05:31 Absolute Neuts (auto) Cancelled 08/23/21 05:31 Absolute Nucleated RBC 0.000 X10*3/uL (0.0-0.012) 08/26/21 05:20 Nucleated RBC % (auto) 0.0 /100WBC (0.0-0.2) 08/26/21 05:20 Neutrophils % (Manual) 72 % (45-73) 08/23/21 05:31 Band Neutrophils % 19 % (3-5) H 08/23/21 05:31 Lymphocytes % (Manual) 5 % (20-40) L 08/23/21 05:31 Monocytes % (Manual) 3 % (2-11) 08/23/21 05:31 Basophils % (Manual) 1 % (0-2) 08/23/21 05:31 Abs Neuts (Manual) 4.6 X10*3/uL (2.0-8.3) 08/23/21 05:31 Lymphocytes # (Manual) 0.3 X10*3/uL (1.2-4.9) L 08/23/21 05:31 Monocytes # (Manual) 0.2 X10*3/uL (0.1-1.2) 08/23/21 05:31 Basophils # (Manual) 0.1 X10*3/uL (0.0-0.2) 08/23/21 05:31 Toxic Vacuolation PRESENT 08/23/21 05:31 Dohle Bodies PRESENT 08/23/21 05:31 Platelet Estimate SLIGHTLY DECREASED (NORMAL) 08/23/21 05:31 Plt Morphology Comment NORMAL 08/23/21 05:31 RBC Morphology NOTED 08/23/21 05:31 Ovalocytes 1+ (5-14) /OIF 08/23/21 05:31 Acanthocytes (Spur) 1+ (0-2) /OIF 08/23/21 05:31 Smear Tech's Comments VERIFIED 08/22/21 20:48 D-Dimer High Sensitivty 3146 NG/ML 08/22/21 20:48 Sodium 142 mmol/L (135-145) 08/26/21 05:20 Potassium 3.5 mmol/L (3.3-5.1) 08/26/21 05:20 Chloride 112 mmol/L (96-108) H 08/26/21 05:20 Carbon Dioxide 24 mmol/L (22-29) 08/26/21 05:20 Anion Gap 10 (12-20) L 08/26/21 05:20 BUN 28 mg/dL (9-16) H 08/26/21 05:20 Creatinine 1.79 mg/dL (0.5-1.4) H 08/26/21 05:20 Estim Creat Clear Calc 42.7 08/26/21 05:20 Estimated GFR 37 08/26/21 05:20 Random Glucose 90 mg/dL (60-115) 08/26/21 05:20 Lactic Acid 0.8 mmol/L (0.5-2.0) 08/25/21 00:04 Calcium 7.5 mg/dL (8.4-10.2) L 08/26/21 05:20 Magnesium 2.3 mg/dL (1.6-2.6) 08/22/21 20:48 Total Bilirubin 0.8 mg/dL (0.0-1.0) 08/22/21 20:48 AST 105 U/L (5-37) H 08/22/21 20:48 ALT 30 U/L (0-40) 08/22/21 20:48 Alkaline Phosphatase 50 U/L (39-117) 08/22/21 20:48 Total Creatine Kinase 790 U/L (38-174) H D 08/26/21 05:20 Troponin I High Sens 10.0 ng/L (<3.5-35.0) 08/27/21 00:03 B-Natriuretic Peptide 279 pg/mL (<100) H 08/22/21 20:47 Total Protein 5.6 g/dL (6.5-8.0) L 08/22/21 20:48 Albumin 3.4 g/dL (3.5-5.0) L 08/22/21 20:48 Vitamin B12 565 pg/mL (200-900) 08/22/21 20:47 Urine Color YELLOW 08/22/21 22:09 Urine Appearance CLOUDY 08/22/21 22:09 Urine pH 5.5 (5.0-8.0) 08/22/21 22:09 Ur Specific [place] 1.025 (1.005-1.025) 08/22/21 22:09 Urine Protein 2+ MG/DL (NEG-TRACE) H 08/22/21 22:09 Urine Glucose (UA) NEG MG/DL (NEG) 08/22/21 22:09 Urine Ketones NEG MG/DL (NEG) 08/22/21 22:09 Urine Blood 3+ (NEG) H 08/22/21 22:09 Urine Nitrite POS (NEG) H 08/22/21 22:09 Ur Leukocyte Esterase 3+ (NEG) H 08/22/21 22:09 Urine RBC 1-4 /HPF (0) 08/22/21 22:09 Urine WBC 76-150 /HPF (0-4) H 08/22/21 22:09 Ur Squamous Epith Cells 1+ /LPF 08/22/21 22:09 Urine Bacteria 1+ /LPF 08/22/21 22:09 COVID-19 (SHARAD) Negative (Negative) 08/27/21 10:17 COVID-19 Clin Com See Note 08/27/21 10:17 Influenza Type A (SHAAN) Negative (Negative) 08/22/21 20:48 Influenza Type B (SHAAN) Negative (Negative) 08/22/21 20:48 Influenza A & B Note See Note 08/22/21 20:[address] 08/22/21 20:32 IMPRESSION: Negative acute noncontrast CT of the brain. No fracture or dislocation of the cervical spine Head CT 08/22/21 20:32 IMPRESSION: Negative acute noncontrast CT of the brain. No fracture or dislocation of the cervical spine Chest CT 08/22/21 22:41 IMPRESSION: 1. No acute findings in the chest. No airspace consolidation. 2. Mild centrilobular and paraseptal pulmonary edema. Mild bronchial wall thickening and intraluminal bronchial secretions are nonspecific but can be seen with chronic bronchitis.. Foot X-Ray 08/25/21 10:27 IMPRESSION: Fracture proximal phalanx great toe Abdomen/Pelvis CT 08/26/21 09:41 IMPRESSION: 2.8 x 4.2 cm cystic area in the prostate/prostate bed. Correlation with patient's history is recommended i.e. has the prostate gland and removed or has the patient received radiation therapy to the prostate gland. Prostate abscess cannot be excluded. Small amount of air in the bladder and question focal bladder wall thickening along the superior and posterior bladder wall. Fullness versus left extrarenal pelvis. Question wall thickening of the left renal pelvis. Correlation with urinalysis and urine culture recommended. Tiny left renal stone and question small right renal stone versus vascular calcification. Atelectasis or small infiltrate in the right lower lobe and tiny right pleural effusion. Constipation and diverticulosis. Fleischner guidelines were followed. Pulmonary Perfusion Imaging 08/26/21 10:00 IMPRESSION: Low probability for PE. Likely artifact in the right lower lobe posterior basal segment only visualized on RPO view. It is not visualized on the arterial or AP view. Venous Duplex 08/26/21 17:08 IMPRESSION: No DVT demonstrated in the bilateral lower extremity. Chest X-Ray 08/26/21 22:05 IMPRESSION: No acute abnormality of chest. Labs on day of discharge: Laboratory Results - last 24 hr 04/08/27/21 08/27/21 21:43 00:03 10:17 Troponin I High Sens 11.0 D 10.0 COVID-19 (SHARAD) Negative COVID-19 Clin Com See Note Preliminary micro results at discharge 08/25/21 00:04 Blood Culture - Preliminary Blood - Venous No growth after 48 hours. 08/25/21 00:04 Blood Culture - Preliminary Blood - Venous No growth after 48 hours. Discharge Plan Discharge Patient Disposition: er Inpatient Rehab Fac Discharge Diagnosis: # severe sepsis # Klebsiella bacteremia, urinary tract infection # CRISTIANA/CKD3 # rhabdomyolysis due to falls # R great toe fracture, traumatic # thrombocytopenia Referrals: [facility] [Provider Group] - 1 Month [facility] [Outside] - 1 Day ([address] [phone] GOING FOR SHORT TERM REHAB TO BE TRANSPORTED [facility]IA [facility] TODAY AT 1 PM) Jose G Dickerson MD [Primary Care Provider] - 1 Week Discharge Medications: New cefuroxime axetil 500 mg Tablet 500 mg PO Q12H Qty: 20 0RF Continued simvastatin 10 mg tablet 1 tab PO BEDTIME 0RF cyanocobalamin (vitamin B-12) 1,000 mcg tablet 1 tab PO DAILY 0RF lutein 20 mg Capsule 20 mg PO DAILY 0RF Rx Instructions: give with meal/snack cholecalciferol (vitamin D3) 25 mcg (1,000 unit) Tablet 25 mcg PO DAILY 0RF Discontinued amlodipine 5 mg tablet 1 tab PO DAILY 0RF Discharge Orders: Discharge Order (Routine); Ordered 08/27/21 Ordered By: Bassem Mehta Diet: advance to usual diet Activity on Discharge: As tolerated Stand Alone Forms: Patient Portal Discharge page Other Ambulatory Orders: Basic Metabolic Panel (Routine) Timeframe: 1 Week Facility: [facility] - Location: Laboratory Ordered By: Bassem Mehta Complete Blood Count Auto Diff (Routine) Timeframe: 1 Week Facility: [facility] - Location: Laboratory Ordered By: Bassem Mehta Care Plan Goals: recovery from urosepsis/bacteremia Health Concerns: # severe sepsis # Klebsiella bacteremia, urinary tract infection # CRISTIANA/CKD3 # rhabdomyolysis due to falls # R great toe fracture, traumatic # thrombocytopenia Plan of Treatment: cefuroxime 500 mg twice daily for 10 days check CBCd + BMP in 1 week follow up with primary care doctor and labor delivery specialist upon discharge from rehabilitation Assessment: See Discharge Summary Patient Instructions: Sepsis (GEN)
== END 2021-08-27 13:30 | DRG 872 ==
LOC: HO.ED 23:02 → HO.EDOVER 08-23 00:05 → HO.S3 08-23 00:35
PROVIDERS: Hospitalist; Nurse Practitioner Family; Physician Assistant Medical; Admitting Provider Internal Medicine; Emergency Provider Internal Medicine; PCP Internal Medicine Medical Oncology; Visit Provider Family Medicine
DX: A41.9 Sepsis, unspecified organism (principal); N17.9 Acute kidney failure, unspecified; N39.0 Urinary tract infection, site not specified; M62.82 Rhabdomyolysis; I13.0 Hypertensive heart and chronic kidney disease with heart failure and stage 1 through stage 4 chronic kidney disease, or unspecified chronic kidney disease; E78.5 Hyperlipidemia, unspecified; N18.30 Chronic kidney disease, stage 3 unspecified; D69.59 Other secondary thrombocytopenia; B96.1 Klebsiella pneumoniae [K. pneumoniae] as the cause of diseases classified elsewhere; R65.20 Severe sepsis without septic shock; S92.411A Displaced fracture of proximal phalanx of right great toe, initial encounter for closed fracture; W18.30XA Fall on same level, unspecified, initial encounter; I50.9 Heart failure, unspecified; F17.290 Nicotine dependence, other tobacco product, uncomplicated; Z71.6 Tobacco abuse counseling; R29.6 Repeated falls; Z91.81 History of falling; Z20.822 Contact with and (suspected) exposure to COVID-19; Z79.899 Other long term (current) drug therapy
CPT/HCPCS: 36415; 70450; 71045; 71046; 71250; 72125; 73620; 74176; 78580; 80048; 80053; 81001; 82550; 82607; 83605; 83735; 83880; 84484; 85007; 85025; 85027; 85379; 86340; 87040; 87077; 87086; 87088; 87186; 87205; 87502; 87635; 93005; 93970; 96361; 96374; 97116; 97162; 99285; A9540; J0696

== ENCOUNTER 2021-09-12 16:21 | Emergency (ER) | payer MEDICARE, SELFPAY ==
--- NOTE | 2021-09-12 | ECG_ITS ---
Test Reason : TACKY Blood Pressure : / mmHG Vent. Rate : 140 BPM Atrial Rate : 140 BPM P-R Int : 114 ms QRS Dur : 072 ms QT Int : 280 ms P-R-T Axes : 034 071 022 degrees QTc Int : 427 ms Sinus tachycardia Otherwise normal ECG When compared with ECG of 26-AUG-2021 22:08, No significant change was found Referred By: Carmella Arce Electronically Signed By:BRIAN QUIÑONES MD
--- NOTE | ~2021-09-12 | MR_ITS ---
EXAMINATION: MR LUMBAR SPINE WITHOUT CONTRAST CLINICAL INFORMATION: Rule out compression. Severe back pain. COMPARISON: None. TECHNIQUE: MRI of the lumbar spine was obtained using routine sequences without contrast. FINDINGS: The lumbar vertebral bodies maintain normal heights. No compression fractures seen. There is mild retrolisthesis of L2 on L3 and L3 on L4. There is severe disc height loss at L2-L3 with chronic fatty degenerative endplate change. Moderate disc height loss is seen at L4-L5. Edema is seen within the interspinous spaces of L2-L3, L3-L4, L4-L5 reflecting interspinous bursitis. The distal spinal cord appears normal. Conus medullaris terminates normally at the T12 level. Multiple bilateral renal cysts are noted. The extraspinal soft tissues are otherwise unremarkable. SPINAL LEVELS: L1-L2: Disc bulging. No spinal canal or neural foraminal stenosis. L2-L3: Disc bulging asymmetric to the left resulting in left subarticular stenosis with compression of the traversing left L3 nerve root. Bulging disc approximates the extraforaminal left L2 nerve root segment. Mild spinal canal stenosis. L3-L4: Disc bulging with large right subarticular/foraminal extrusion which, in combination with ligamentum flavum infolding and moderate facet arthropathy results in severe spinal canal stenosis with compression of the thecal sac and compression of the traversing right more than left L4 nerve roots in addition to mild to moderate compression of the exiting right L3 nerve root. Mild to moderate left neural foraminal stenosis. L4-L5: Disc bulging with ligamentum flavum infolding moderate facet arthropathy. Mild spinal canal stenosis. Mild to moderate left and moderate right neural foraminal stenosis with mild compression of the exiting right L4 nerve root. L5-S1: Small central protrusion. No spinal canal or neural foraminal stenosis. MR/MR lumbar spine wo con IMPRESSION: At L3-L4 there are multifactorial degenerative changes including large right subarticular/foraminal extrusion resulting in severe spinal canal stenosis with compression of the thecal sac and traversing right more than left L4 nerve roots. Mild to moderate compression of the exiting right L3 nerve root. At L2-L3 there is left subarticular stenosis with compression of the traversing left L3 nerve root. At L4-L5 there is mild to moderate left and moderate right neural foraminal stenosis and mild compression of the exiting right L4 nerve root.
--- NOTE | ~2021-09-12 | XR_ITS ---
EXAMINATION: XR LUMBOSACRAL SPINE CLINICAL INFORMATION: Severe back pain COMPARISON: Lumbar spine MRI December 2009 TECHNIQUE: Three views of the lumbosacral spine. FINDINGS: There may be a transitional vertebral body segment or 6 lumbar-type vertebral bodies. There is curvature of the lumbar spine to the right. No fracture or dislocation is seen. There is degenerative disc disease and spondylosis at L1-L2, L2-L3 and degenerative disc disease at L4-L5. There is multilevel facet arthritis. There is atherosclerotic disease. XR/XR lumbar spine 2-3V IMPRESSION: Scoliosis and degenerative changes.
[2021-09-12 17:24] VITALS: BP 128/71; PULSE 134; RESP 24; TEMP 37.7; O2SAT 96; BMI 24.0
[2021-09-12 17:37] LABS: MANUAL DIFF FLAG NO
[2021-09-12 17:39] LABS: Basophils Percent Auto 0.2 % (0-2); Eosinophils Percent Auto 0.4 % (0-4); Hematocrit 35.5 % (42.0-52.0); Hemoglobin 11.2 g/dl (14.0-18.0); Imm Gran Abs Auto 0.43 X10*3/uL (0.00-0.03); Imm Gran Pct Auto 4.3 % (0.0-0.4); Lymphocytes Absolute Auto 0.8 X10*3/uL (1.2-4.9); Lymphocytes Percent Auto 7.5 % (20-40); Mean Corpuscular HGB Conc 31.5 g/dl (31.0-36.0); Mean Corpuscular Hemoglobin 29.4 pg (27.0-33.0); Mean Corpuscular Volume 93.2 fL (80.0-98.0); Mean Platelet Volume 9.4 fL (9.4-12.4); Monocytes Absolute Auto 0.7 X10*3/uL (0.1-1.2); Monocytes Percent Auto 7.4 % (2-11); Neutrophils Percent Auto 80.2 % (45-73); Platelet Count 283 X10*3/uL (160-400); Red Blood Count 3.81 X10*6/uL (4.60-5.80); Red Cell Distribution Width 17.2 % (11.0-16.0)
[2021-09-12 17:45] LABS: Prothrombin Time 11.1 SEC (9.9-13.0)
[2021-09-12 17:51] LABS: Lactic Acid 0.9 mmol/L (0.5-2.0)
[2021-09-12 17:55] LABS: Alanine Aminotransferase 16 U/L (0-40); Albumin Level 3.7 g/dL (3.5-5.0); Alkaline Phosphatase 60 U/L (39-117); Anion Gap 13 (12-20); Aspartate Amino Transferase 12 U/L (5-37); Bilirubin Direct 0.2 mg/dL (0.0-0.5); Bilirubin Total 0.4 mg/dL (0.0-1.0); Blood Urea Nitrogen 30 mg/dL (9-16); C Reactive Protein 14.74 mg/dL (< or = 0.50); Calcium 9.1 mg/dL (8.4-10.2); Carbon Dioxide 25 mmol/L (22-29); Chloride 109 mmol/L (96-108); Creatinine Clr Calc Pharmacy 43.7; Estimated Glomerular Filt Rate 38; Glucose Random 100 mg/dL (60-115); Magnesium 2.1 mg/dL (1.6-2.6); Potassium 4.9 mmol/L (3.3-5.1); Sodium 142 mmol/L (135-145); Total Protein 6.2 g/dL (6.5-8.0)
[2021-09-12 17:58] LABS: Troponin-I High Sensitivity 11.2 ng/L (<3.5-35.0)
[2021-09-12 17:59] LABS: COVID-19 Test Negative (Negative); IDNOW Serial# 55D5AD1C
[2021-09-12 18:04] LABS: Appearance Urine CLOUDY; Color Urine YELLOW; Glucose Urine UA NEG (NEG); Leukocyte Esterase Urine 3+ (NEG); Nitrite Urine POS (NEG); UACC Culture Trigger YES; Urine Blood 3+ (NEG); Urine Ketones NEG (NEG); Urine Protein 2+ MG/DL (NEG-TRACE)
[2021-09-12 18:13] LABS: Amphetamine Screen Urine Not Detected (Not Detect); Barbiturates, Urine Not Detected (Not Detect); Benzodiazepines Screen Urine Not Detected (Not Detect); Cannabinoid Screen Urine Not Detected (Not Detect); Cocaine Screen Urine Not Detected (Not Detect); Fentanyl, urine Not Detected (Not Detect); Opiate Screen Urine Not Detected (Not Detect); Phencyclidine Screen Urine Not Detected (Not Detect)
[2021-09-12 18:15] LABS: Erythrocyte Sedimentation Rate 44 MM/HR (0-15)
[2021-09-12 18:17] LABS: Bacteria Urine 2+ /LPF; RBC Urine 50-75 /HPF (0); WBC Urine TNTC /HPF (0-4)
== END 2021-09-12 23:43 | disposition left against medical advice (07) ==
PROVIDERS: Emergency Provider Emergency Medicine; PCP Internal Medicine Medical Oncology
DX: M79.605 Pain in left leg (principal); M79.604 Pain in right leg; R00.0 Tachycardia, unspecified; M54.9 Dorsalgia, unspecified; Z20.822 Contact with and (suspected) exposure to COVID-19
CPT/HCPCS: 36415; 72100; 72148; 80048; 80076; 80307; 81001; 83605; 83735; 84484; 85025; 85610; 85652; 86140; 87086; 87635; 93005; 99282; 99285

== ENCOUNTER 2021-10-07 11:48 | Inpatient (IN) | payer MEDICARE, SELFPAY ==
[2021-10-07] VITALS (12 sets, daily range): BP systolic 84–139; BP diastolic 45–69; PULSE 83–126; RESP 17–30; TEMP 36.6–37.4; O2SAT 93–99; BMI 24.6
--- NOTE | ~2021-10-07 | CT_ITS ---
EXAMINATION: CT ABDOMEN AND PELVIS WITHOUT CONTRAST CLINICAL INFORMATION: Bacteremia. Rule out urinary obstruction. COMPARISON: Previous CT of the abdomen and pelvis August 2021 TECHNIQUE: Multidetector volumetric imaging was performed from the superior aspect of the liver through the pubic symphysis. Sagittal and coronal reformatted images were obtained on the technologist's workstation. This CT examination was performed using dose optimization techniques as appropriate, variously including the following: *Automated exposure control *Adjustment of mA and/or kV according to patient size (this includes techniques or standardized protocols for targeted exams where dose is matched to indication/reason for exam; i.e. extremities or head) *Use of iterative reconstruction technique DLP: 635 mGy-cm FINDINGS: LUNG BASES: There is dependent atelectasis at the lung bases. Heart is enlarged. LIVER, GALLBLADDER, AND BILIARY TREE: The liver is normal in size, shape, and attenuation. No focal hepatic lesion or biliary ductal dilatation is present. The gallbladder is upper normal in size. No gallstones are appreciated by CT scan. The pericholecystic fat is normal. PANCREAS: Unremarkable. SPLEEN: Unremarkable. ADRENAL GLANDS: Unremarkable. KIDNEYS AND URETERS: There are are bilateral renal cysts. No imaging follow-up needed. There is a small nonobstructing right renal stone. No hydronephrosis, ureteral dilatation or ureteral stones is seen. BLADDER: The bladder wall is slightly thickened posteriorly and at the bases. GASTROINTESTINAL TRACT: The small and large bowel are unremarkable. The appendix is unremarkable. There is stranding of the fat surrounding the rectum. There is some stranding of the fat in the presacral space. The stomach is unremarkable. ABDOMINAL WALL: No significant hernia is appreciated. LYMPH NODES: Normal. VASCULAR: There is atherosclerotic disease. PELVIC VISCERA: There is a low-attenuation cystic area in the prostate gland. This measures 2.3 x 4.8 cm in AP and transverse dimension. There is question of calcifications versus a surgical clips or radiation seeds. This appearance is similar to August 2021 exam. There is stranding of the fat in the presacral space and surrounding the prostate gland. Again, correlation with patient's clinical history i.e. has the prostate gland been removed is recommended. Prostate abscess cannot be excluded. 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 There are degenerative changes of the spine. There is a small sclerotic lesion in the superior endplate of the T12 vertebral body CT/CT abdomen pelvis wo con IMPRESSION: 2.3 x 4.8 cm low-attenuation cystic area in the prostate/prostate bed and question surgical clips versus calcification. Correlation patient's history is recommended i.e. has the prostate gland been removed or has the patient received radiation therapy to the prostate gland. Prostate abscess cannot be excluded. Mild posterior bladder wall thickening and bladder wall thickening at the base of the bladder. Mild fat stranding in the pelvis surrounding the prostate gland and in the presacral space. These findings are similar to August 2021 exam. Small nonobstructing bilateral renal stones. Bilateral renal cysts. No hydronephrosis. Upper normal-size gallbladder. No gallstones seen. Fleischner guidelines were followed.
--- NOTE | ~2021-10-07 | US_ITS ---
EXAMINATION: ULTRASOUND SOFT TISSUE LIMITED CLINICAL INFORMATION: Soft tissue mass COMPARISON: CT abdomen pelvis on 10/08/2021 TECHNIQUE: Limited sonogram of the superficial soft tissues of the left gluteal region assessing grayscale appearance and color Doppler flow FINDINGS: No cystic or solid mass identified. There is small area of subcutaneous edema in the soft tissues of the left gluteal cleft. No discrete fluid collections are identified. US/US extremity nonvascular IMPRESSION: Area of subcutaneous edema may be related to cellulitis. This corresponds to subcutaneous edema noted on the prior CT.
--- NOTE | ~2021-10-07 | CT_ITS ---
EXAMINATION: CT BRAIN AND CT CERVICAL SPINE WITHOUT CONTRAST. CLINICAL INFORMATION: False. COMPARISON: CT cervical spine 08/22/2021 TECHNIQUE: 5 mm thin axial and reformatted 2 mm thin sagittal and coronal images of brain were obtained. Axial 3 mm thin and reformatted 2 mm thin sagittal and coronal images of cervical spine were obtained. DLP 1820 FINDINGS: Exam is limited secondary to patient motion. Brain: There is no acute intra-axial, extra-axial bleed, masses or midline shift. There is no acute infarction in evolution. The avila to white matter difference is maintained normal. There is a dense pineal gland calcification. The lateral ventricles are symmetrical in size and configuration with mild enlargement. There is no edema. Bone windows reveal no calvarial abnormality. There is no scalp soft tissue abnormality. Bilateral paranasal sinuses and mastoid air cells are well-aerated. Cervical spine: There is mild straightening of cervical lordosis the vertebral heights and alignment is normal. There is loss of C6-C7 disc height with ventral and posterior spondylosis. No visible acute fracture, dislocation or lytic process seen. The craniovertebral junction and the C1-C2 alignment is normal. Visualized thyroid, submandibular and parotid glands are symmetrical and normal. The prevertebral and paravertebral soft tissues are normal. CT/CT cervical spine wo con IMPRESSION: No acute intracranial process seen. Mild degenerative disc changes C6-C7 disc level with ventral and posterior spondylosis. There is no visible acute fracture or dislocation. There is mild straightening of cervical lordosis likely spasm.
--- NOTE | ~2021-10-07 | CT_ITS ---
EXAMINATION: CT BRAIN AND CT CERVICAL SPINE WITHOUT CONTRAST. CLINICAL INFORMATION: False. COMPARISON: CT cervical spine 08/22/2021 TECHNIQUE: 5 mm thin axial and reformatted 2 mm thin sagittal and coronal images of brain were obtained. Axial 3 mm thin and reformatted 2 mm thin sagittal and coronal images of cervical spine were obtained. DLP 1820 FINDINGS: Exam is limited secondary to patient motion. Brain: There is no acute intra-axial, extra-axial bleed, masses or midline shift. There is no acute infarction in evolution. The avila to white matter difference is maintained normal. There is a dense pineal gland calcification. The lateral ventricles are symmetrical in size and configuration with mild enlargement. There is no edema. Bone windows reveal no calvarial abnormality. There is no scalp soft tissue abnormality. Bilateral paranasal sinuses and mastoid air cells are well-aerated. Cervical spine: There is mild straightening of cervical lordosis the vertebral heights and alignment is normal. There is loss of C6-C7 disc height with ventral and posterior spondylosis. No visible acute fracture, dislocation or lytic process seen. The craniovertebral junction and the C1-C2 alignment is normal. Visualized thyroid, submandibular and parotid glands are symmetrical and normal. The prevertebral and paravertebral soft tissues are normal. CT/CT head/brain wo con IMPRESSION: No acute intracranial process seen. Mild degenerative disc changes C6-C7 disc level with ventral and posterior spondylosis. There is no visible acute fracture or dislocation. There is mild straightening of cervical lordosis likely spasm.
--- NOTE | ~2021-10-07 | XR_ITS ---
EXAMINATION: XR CHEST CLINICAL INFORMATION: Cough COMPARISON: Chest radiograph 08/26/2021 TECHNIQUE: Frontal view of the chest was obtained. FINDINGS: No significant abnormality is noted involving the heart, lungs, mediastinum, bony thorax or soft tissues. XR/XR chest 1V IMPRESSION: Unremarkable examination.
--- NOTE | 2021-10-07 12:46 | ED.FALL ---
HPI - Fall General Chief Complaint: Fall Stated Complaint: LEG & LOW BACK PAIN S/P MECH FALL PER EMS Time Seen by Provider: 10/07/21 12:14 Source: patient and family Mode of arrival: EMS History of Present Illness HPI Narrative: 71-year-old male presents via EMS for having been discharged from [facility] a little over 1 week ago and now presents with increasing weakness in his lower extremities associated with significant pain patient states he has been feeling feverish in chills denies any abdominal pain, shortness of breath or chest pain/palpitations. Related Data Home Medications Medication Instructions Recorded Confirmed simvastatin 10 mg tablet 1 tab PO BEDTIME 02/19/21 08/22/21 cholecalciferol (vitamin D3) 25 25 mcg PO DAILY 08/22/21 08/22/21 mcg (1,000 unit) tablet cyanocobalamin (vitamin B-12) 1 tab PO DAILY 08/22/21 08/22/21 1,000 mcg tablet lutein 20 mg capsule 20 mg PO DAILY 08/22/21 08/22/21 amlodipine 5 mg tablet 1 tab PO DAILY 10/07/21 gabapentin 300 mg capsule 1 cap PO TID 10/07/21 Allergies Allergy/AdvReac Type Severity Reaction Status Date / Time No Known Allergies Allergy Verified 07/16/21 10:10 [No Known Allergies*] Review of Systems Review of Systems: Pertinent positives and negatives as stated in HPI 10 point review of systems otherwise negative. [facility] Past Medical History Source: nursing notes reviewed Medical History Falls Hematuria Hypercholesteremia Hypertension Kidney disease Macular degeneration Prostate cancer Urgency incontinence Surgical History History of back surgery History of penile implant History of prostate surgery Family History Family History Other No family history of coronary artery disease Social History Social History Household Members: Spouse Housing: House Do you presently have visiting nurse or other home services: No Alcohol intake: never Patient Tobacco Use Status: Current everyday Tobacco user Smoking Start Date: 06/18/61 Tobacco use type: Cigar Cigarette Packs Per Day: 0.5 Cigarettes Per Day: 10.0 Second Hand Smoke Exposure: No Advance Directives: Yes Advance Directives on File: Yes Advance Directives Date on File: 02/19/21 service: Yes Current occupational status: retired Physical Exam Vital Signs: Vital Signs: Last Vital Signs Temp 99.3 F 10/07/21 13:18 Pulse 83 10/07/21 15:27 Resp 17 10/07/21 15:27 BP 107/57 L 10/07/21 15:27 Pulse Ox 99 10/07/21 15:27 BMI result Body Mass Index 24.6 VITAL SIGNS: Reviewed. GENERAL: Well developed, well nourished, in no acute distress. HEAD: Normocephalic/atraumatic EYES: PERRLA, EOMI EARS: Ext canals without abnormality OROPHARYNX: no oral lesions noted, posterior pharynx clear LUNGS: Normal breath sounds. No adventitious sounds or accessory muscle use. SpO2<93> CARDIOVASCULAR: Sinus tachycardia and rhythm without noted murmurs, no JVD or lower extremity edema. ABDOMEN: Soft, non-tender, non-distended with bowel sounds. BACK: Tender palpation over vertebrae. MUSCULOSKELETAL: No tenderness, deformities, or effusions noted on gross inspection. EXTREMITIES: No cyanosis, clubbing or edema; BILATERAL KNEES: Patient with multiple abrasions to bilateral knees after his fall into his knees this morning. SKIN: Inspection of the skin reveals no rashes, ulcerations, jaundice, pallor, or petechiae. NEUROLOGIC: Alert and oriented x 4. Strength and sensation to light touch were grossly intact x 4. Course Course Course Narrative: 1314: 71-year-old male who presents via EMS for a fall but on review of all investigations meets criteria for sepsis with tachycardia and leukocytosis. Patient received antibiotics and does not need severe sepsis fluids at this time as he is hemodynamically stable and the lactic acid is 2.3. The nurse was notified. On review of all investigations patient is noted to have a leukocytosis, CRISTIANA, as well as again being in rhabdomyolysis. 1404: I discussed the case with hospitalist who wishes to have Neurology comment on the MRI findings, but plans to admit. 1415: After further investigation the MRI read that are in the system were ordered by 1 of our ED providers while the patient was in the waiting area at the request of his primary care provider. Patient then left without being treated from the waiting room before the official read of the MRI. 1418: I briefly discussed the MRI results with our on-call neurologist who states that this could certainly lead to patient's lower extremity weakness and falls under the care a neural surgery evaluation but based on those readings would not indicate an emergent evaluation.Dr Chawla does say that without formally examining the patient you would be difficult to comment further. Reevaluation(s) Reevaluation #1: Sepsis alert Time: 13:14 MDM - Fall Lab Data Result diagrams: 10/07/21 12:47 10/07/21 12:47 Labs: Lab Results 10/07/21 10/07/21 10/07/21 Range/Units 12:47 12:47 12:47 WBC 13.1 H (4.8-10.8) X10*3/uL RBC 3.50 L (4.60-5.80) X10*6/uL Hgb 10.2 L (14.0-18.0) g/dl Hct 33.5 L (42.0-52.0) % MCV 95.7 (80.0-98.0) fL MCH 29.1 (27.0-33.0) pg MCHC 30.4 L (31.0-36.0) g/dl RDW 17.4 H (11.0-16.0) % Plt Count 173 D (160-400) X10*3/uL MPV 10.1 (9.4-12.4) fL Immature Gran % (Auto) 0.9 H (0.0-0.4) % Neut % (Auto) 89.8 H (45-73) % Lymph % (Auto) 4.9 L (20-40) % [place] % (Auto) 4.0 (2-11) % Eos % (Auto) 0.4 (0-4) % Baso % (Auto) 0.0 (0-2) % Lymph # (Auto) 0.6 L (1.2-4.9) X10*3/uL [place] # (Auto) 0.5 (0.1-1.2) X10*3/uL Eos # (Auto) 0.1 (0.0-0.4) X10*3/uL Baso # (Auto) 0.0 (0.0-0.2) X10*3/uL Abs Immat Gran (auto) 0.12 H (0.00-0.03) X10*3/uL Absolute Neuts (auto) 11.8 H (2.0-8.3) x10*3/uL Absolute Nucleated RBC 0.000 (0.0-0.012) X10*3/uL Nucleated RBC % (auto) 0.0 (0.0-0.2) /100WBC PT 11.7 (9.9-13.0) SEC INR 1.0 (0.9-1.1) Sodium 140 (135-145) mmol/L Potassium 4.6 (3.3-5.1) mmol/L Chloride 106 (96-108) mmol/L Carbon Dioxide 21 L (22-29) mmol/L Anion Gap 18 (12-20) BUN 55 H D (9-16) mg/dL Creatinine 2.68 H (0.5-1.4) mg/dL Estim Creat Clear Calc 27.7 Estimated GFR 23 Random Glucose 111 (60-115) mg/dL Lactic Acid (0.5-2.0) mmol/L Calcium 8.1 L D (8.4-10.2) mg/dL Total Bilirubin 0.6 (0.0-1.0) mg/dL AST 106 H (5-37) U/L ALT 47 H (0-40) U/L Alkaline Phosphatase 46 D (39-117) U/L Total Creatine Kinase 6437 H D (38-174) U/L B-Natriuretic Peptide (<100) pg/mL Total Protein 5.5 L (6.5-8.0) g/dL Albumin 3.3 L (3.5-5.0) g/dL Urine Color Urine Appearance Urine pH (5.0-8.0) Ur Specific [place] (1.005-1.025) Urine Protein (NEG-TRACE) MG/DL Urine Glucose (UA) (NEG) MG/DL Urine Ketones (NEG) MG/DL Urine Blood (NEG) Urine Nitrite (NEG) Ur Leukocyte Esterase (NEG) Urine RBC (0) /HPF Urine WBC (0-4) /HPF Ur Squamous Epith Cells /LPF Urine Bacteria /LPF 10/07/21 10/07/21 10/07/21 Range/Units 12:47 12:47 13:47 WBC (4.8-10.8) X10*3/uL RBC (4.60-5.80) X10*6/uL Hgb (14.0-18.0) g/dl Hct (42.0-52.0) % MCV (80.0-98.0) fL MCH (27.0-33.0) pg MCHC (31.0-36.0) g/dl RDW (11.0-16.0) % Plt Count (160-400) X10*3/uL MPV (9.4-12.4) fL Immature Gran % (Auto) (0.0-0.4) % Neut % (Auto) (45-73) % Lymph % (Auto) (20-40) % [place] % (Auto) (2-11) % Eos % (Auto) (0-4) % Baso % (Auto) (0-2) % Lymph # (Auto) (1.2-4.9) X10*3/uL [place] # (Auto) (0.1-1.2) X10*3/uL Eos # (Auto) (0.0-0.4) X10*3/uL Baso # (Auto) (0.0-0.2) X10*3/uL Abs Immat Gran (auto) (0.00-0.03) X10*3/uL Absolute Neuts (auto) (2.0-8.3) x10*3/uL Absolute Nucleated RBC (0.0-0.012) X10*3/uL Nucleated RBC % (auto) (0.0-0.2) /100WBC PT (9.9-13.0) SEC INR (0.9-1.1) Sodium (135-145) mmol/L Potassium (3.3-5.1) mmol/L Chloride (96-108) mmol/L Carbon Dioxide (22-29) mmol/L Anion Gap (12-20) BUN (9-16) mg/dL Creatinine (0.5-1.4) mg/dL Estim Creat Clear Calc Estimated GFR Random Glucose (60-115) mg/dL Lactic Acid 2.3 H* (0.5-2.0) mmol/L Calcium (8.4-10.2) mg/dL Total Bilirubin (0.0-1.0) mg/dL AST (5-37) U/L ALT (0-40) U/L Alkaline Phosphatase (39-117) U/L Total Creatine Kinase (38-174) U/L B-Natriuretic Peptide 288 H (<100) pg/mL Total Protein (6.5-8.0) g/dL Albumin (3.5-5.0) g/dL Urine Color YELLOW Urine Appearance CLOUDY Urine pH 6.0 (5.0-8.0) Ur Specific [place] 1.025 (1.005-1.025) Urine Protein 2+ H (NEG-TRACE) MG/DL Urine Glucose (UA) NEG (NEG) MG/DL Urine Ketones NEG (NEG) MG/DL Urine Blood 3+ H (NEG) Urine Nitrite NEG (NEG) Ur Leukocyte Esterase 3+ H (NEG) Urine RBC 50-75 H (0) /HPF Urine WBC TNTC H (0-4) /HPF Ur Squamous Epith Cells 2+ /LPF Urine Bacteria 2+ /LPF ECG Data Attestation: I personally reviewed and interpreted this ECG as follows: Prior ECG tracings: available for review Interpretation: Normal sinus rhythm, HR-87, no STEMI, MI/QRS/QTC are within normal limits. Critical Care Time Critical Care Time Critical Care Time: Yes Total Critical Care Time: 30 Attestation: I personally attest to this time spent taking care of the patient. Discharge Plan Discharge Clinical Impression: Sepsis, Rhabdomyolysis, CRISTIANA (acute kidney injury), Acute UTI Patient Disposition: Admitted As Inpatient
[2021-10-07 12:53] LABS: Eosinophils Absolute Auto 0.1 X10*3/uL (0.0-0.4); Eosinophils Percent Auto 0.4 % (0-4); Hematocrit 33.5 % (42.0-52.0); Hemoglobin 10.2 g/dl (14.0-18.0); Imm Gran Abs Auto 0.12 X10*3/uL (0.00-0.03); Imm Gran Pct Auto 0.9 % (0.0-0.4); Lymphocytes Absolute Auto 0.6 X10*3/uL (1.2-4.9); Lymphocytes Percent Auto 4.9 % (20-40); MANUAL DIFF FLAG NO; Mean Corpuscular HGB Conc 30.4 g/dl (31.0-36.0); Mean Corpuscular Hemoglobin 29.1 pg (27.0-33.0); Mean Corpuscular Volume 95.7 fL (80.0-98.0); Mean Platelet Volume 10.1 fL (9.4-12.4); Monocytes Absolute Auto 0.5 X10*3/uL (0.1-1.2); Neutrophils Absolute Auto 11.8 x10*3/uL (2.0-8.3); Neutrophils Percent Auto 89.8 % (45-73); Platelet Count 173 X10*3/uL (160-400); Red Cell Distribution Width 17.4 % (11.0-16.0); White Blood Count 13.1 X10*3/uL (4.8-10.8)
[2021-10-07 13:01] LABS: Prothrombin Time 11.7 SEC (9.9-13.0)
[2021-10-07 13:08] LABS: Lactic Acid 2.3 mmol/L (0.5-2.0)
[2021-10-07 13:11] LABS: Alanine Aminotransferase 47 U/L (0-40); Albumin Level 3.3 g/dL (3.5-5.0); Alkaline Phosphatase 46 U/L (39-117); Anion Gap 18 (12-20); Aspartate Amino Transferase 106 U/L (5-37); Bilirubin Total 0.6 mg/dL (0.0-1.0); Blood Urea Nitrogen 55 mg/dL (9-16); Calcium 8.1 mg/dL (8.4-10.2); Carbon Dioxide 21 mmol/L (22-29); Chloride 106 mmol/L (96-108); Creatinine Clr Calc Pharmacy 27.7; Estimated Glomerular Filt Rate 23; Glucose Random 111 mg/dL (60-115); Potassium 4.6 mmol/L (3.3-5.1); Sodium 140 mmol/L (135-145); Total Protein 5.5 g/dL (6.5-8.0)
[2021-10-07] MEDS: Piperacillin Sodium/Tazobactam 3.375 GM in 0.9 % Sodium Chloride 50 ML IV (13:32)
[2021-10-07] MEDS: SODIUM CHLORIDE 2544.66 ML IV (13:32)
--- NOTE | 2021-10-07 13:34 | PC.NURSE ---
[facility] LA 2.4, patient tachycardic, tachypnic. IVF per protocol initiated d/t BP 90/54. BCx drawn prior to ceftriaxone admin. Patient tired, otherwise stable, care plan updated.
--- NOTE | 2021-10-07 13:52 | ECG_ITS ---
Test Reason : TACHYCARDIC Blood Pressure : / mmHG Vent. Rate : 087 BPM Atrial Rate : 087 BPM P-R Int : 142 ms QRS Dur : 074 ms QT Int : 384 ms P-R-T Axes : 051 057 034 degrees QTc Int : 462 ms Normal sinus rhythm Normal ECG When compared with ECG of 12-SEP-2021 17:40, Vent. rate has decreased BY 53 BPM Referred By: Maria Guadalupe Osman Electronically Signed By:JERILYN VELA
[2021-10-07 14:06] LABS: Appearance Urine CLOUDY; Color Urine YELLOW; Glucose Urine UA NEG (NEG); Nitrite Urine NEG (NEG); Specific Gravity - Urine 1.025 (1.005-1.025); UACC Culture Trigger YES; Urine Blood 3+ (NEG); Urine Ketones NEG (NEG); Urine Protein 2+ MG/DL (NEG-TRACE)
[2021-10-07 14:07] LABS: Leukocyte Esterase Urine 3+ (NEG)
[2021-10-07 14:09] LABS: WBC Urine TNTC /HPF (0-4)
[2021-10-07 14:11] LABS: Bacteria Urine 2+ /LPF; RBC Urine 50-75 /HPF (0); Squamous Epithelial Cell Urine 2+ /LPF
[2021-10-07 14:32] LABS: B Type Natriuretic Peptide 288 pg/mL (<100)
[2021-10-07 14:50] LABS: Reflex Lactate? Lactic Acid Added
--- NOTE | 2021-10-07 16:05 | PHA.MEDREC ---
Pharmacy Consult ? Medication Reconciliation Pharmacy has completed the medication reconciliation. Spoke to pt's Vanesa who confirmed medication list.
--- NOTE | 2021-10-07 16:22 | PM.IMHP ---
History of Present Illness Date of Service: 10/07/21 Attending physician on admission: Wilbert Horton Chief Complaint: fall ,cristiana , rhabdo,progressive leg weakness This is a 71-year-old male with past medical history of CHF, CKD, history of prostate cancer, HTN, HLD, who presents to the hospital With fall from [place], patient says that he had multiple falls in last few months- last fall was last night- He says he try to move with the cane and try to turn and fell, did not lose his consciousness, in addition patient also has progressive lower extremity weakness from 4-5 months as per the patient, also has chronic back pain in addition to that. patient said that when he pees his a urinary burning as well as penile burning sensation as per patient. Also he says appetite is poor, has somewhat suprapubic discomfort. back pain-says chronic unchanged. he says that last 4-5 months is lower extremity weakness is progressing, he has appointment with his Supine surgeon- in last week of this month. denies any other complaint of nausea vomiting abdominal pain or chest pain or shortness of breath . recently treated for ampicillin-resistant Klebsiella UTI and bacteremia- which was treated with IV ceftriaxone. he denies any history of COVID vaccine. in the ED patient: found to have severe sepsis- given fluid, antibiotics: admission was requested for sepsis. Patient blood pressure improving, has tachypnea, heart rate is 95/min,sats seems fine -need to stop oxygen ct head and c spine added to complete the workup. MRI lumbar spine- was done recently: ED physician discussed the case with neuro: currently no emergent intervention recommended. labs: WBC count 13.6, creatinine is 2.68, lactic acidosis initially was 2.3 then improved to 1.0, mild elevation with ALT and AST, CPK 6437 Denies any new complaint of chest pain or shortness of breath or abdominal pain or fever or chills or nausea or vomiting Denies any cough Review of Systems Review of Systems: as above. Yes all other systems are reviewed and are negative [facility] Medical History Falls Hematuria Hypercholesteremia Hypertension Kidney disease Macular degeneration Prostate cancer Urgency incontinence Family History Other No family history of coronary artery disease Pertinent family history: Denies any family history ofcad. Surgical History History of back surgery History of penile implant History of prostate surgery Social History Household Members: Spouse Housing: House Do you presently have visiting nurse or other home services: No Alcohol intake: never Patient Tobacco Use Status: Current everyday Tobacco user Smoking Start Date: 06/18/61 Tobacco use type: Cigar Cigarette Packs Per Day: 0.5 Cigarettes Per Day: 10.0 Second Hand Smoke Exposure: No Advance Directives: Yes Advance Directives on File: Yes Advance Directives Date on File: 02/19/21 service: Yes Current occupational status: retired [employer] Allergies Allergy/AdvReac Type Severity Reaction Status Date / Time No Known Allergies Allergy Verified 07/16/21 10:10 [No Known Allergies*] Active Medications: Current Medications Amlodipine Besylate (Amlodipine Besylate 5 Mg Tablet) 5 mg PO DAILY [facility]; Protocol Cyanocobalamin (Cyanocobalamin (Vitamin B-12) 1,000 Mcg Tablet) 1,000 mcg PO DAILY [facility] Dexamethasone (Dexamethasone 2 Mg Tablet) 2 mg PO Q12H FELISA Gabapentin (Gabapentin 300 Mg Capsule) 300 mg PO TID [facility] Ceftriaxone Sodium 1 gm/ (Sodium Chloride) 50 mls @ 100 mls/hr IV Q24H [facility] Non-Formulary Medication (Lutein) 20 mg PO DAILY [facility] Sodium Chloride (0.9 % Sodium Chloride Flush 3 Ml Syringe) 3 ml IVFLUSH QSHIFT [facility] Home Medications Medication Instructions Recorded Confirmed Last Taken Type cyanocobalamin (vitamin B-12) 1 tab PO DAILY 08/22/21 10/07/21 10/07/21 History 1,000 mcg tablet lutein 20 mg capsule 20 mg PO DAILY 08/22/21 10/07/21 08/22/21 History amlodipine 5 mg tablet 1 tab PO DAILY 10/07/21 10/07/21 10/07/21 History dexamethasone 2 mg tablet 1 tab PO Q12H 10/07/21 10/07/21 Unknown History gabapentin 300 mg capsule 1 cap PO TID 10/07/21 10/07/21 10/07/21 History Physical Exam Vital Signs and Narrative: Vital Signs: Last Vital Signs Temp 99.3 F 10/07/21 13:18 Pulse 83 10/07/21 15:27 Resp 17 10/07/21 15:27 BP 107/57 L 10/07/21 15:27 Pulse Ox 99 10/07/21 15:27 BMI result Body Mass Index 24.6 Appearance: Alert.? Oriented X3.? not in distress.? Eyes: Pupils equal, round and reactive to light.? Sclera nonicteric.? ENT: Pharynx normal.? Moist mucous dry cvs: rrr, [id number] , res: clear to auscultation ,few rhonchii abd: no rebound or guarding ,nt, bs present. : scrota and penile area seems fine ext pulses present , no cyanosis , has multiple bruises on knees ,elebows. neuro: axo3 , move s allext stregth 5/5 upper ext lower ext: 3/5 sensation intact, speech fine face symteric, eomi,prrella dtr equivocal on lower ext Results Labs CBC and Chem 7: 10/07/21 12:47 10/07/21 12:47 Labs: Laboratory Results - last 24 hr 10/07/21 10/07/21 10/07/21 12:47 12:47 12:47 MCV 95.7 MCH 29.1 MCHC 30.4 L RDW 17.4 H Plt Count 173 D MPV 10.1 Immature Gran % (Auto) 0.9 H Neut % (Auto) 89.8 H Lymph % (Auto) 4.9 L [place] % (Auto) 4.0 Eos % (Auto) 0.4 Baso % (Auto) 0.0 Lymph # (Auto) 0.6 L [place] # (Auto) 0.5 Eos # (Auto) 0.1 Baso # (Auto) 0.0 Abs Immat Gran (auto) 0.12 H Absolute Neuts (auto) 11.8 H Absolute Nucleated RBC 0.000 Nucleated RBC % (auto) 0.0 PT 11.7 INR 1.0 Anion Gap 18 Estim Creat Clear Calc 27.7 Estimated GFR 23 Random Glucose 111 Lactic Acid Lactic Acid F/U @ 2Hr Calcium 8.1 L D Total Bilirubin 0.6 AST 106 H ALT 47 H Alkaline Phosphatase 46 D Total Creatine Kinase 6437 H D B-Natriuretic Peptide Total Protein 5.5 L Albumin 3.3 L Urine Color Urine Appearance Urine pH Ur Specific [place] Urine Protein Urine Glucose (UA) Urine Ketones Urine Blood Urine Nitrite Ur Leukocyte Esterase Urine RBC Urine WBC Ur Squamous Epith Cells Urine Bacteria 10/07/21 10/07/21 10/07/21 12:47 12:47 13:47 MCV MCH MCHC RDW Plt Count MPV Immature Gran % (Auto) Neut % (Auto) Lymph % (Auto) [place] % (Auto) Eos % (Auto) Baso % (Auto) Lymph # (Auto) [place] # (Auto) Eos # (Auto) Baso # (Auto) Abs Immat Gran (auto) Absolute Neuts (auto) Absolute Nucleated RBC Nucleated RBC % (auto) PT INR Anion Gap Estim Creat Clear Calc Estimated GFR Random Glucose Lactic Acid 2.3 H* Lactic Acid F/U @ 2Hr Calcium Total Bilirubin AST ALT Alkaline Phosphatase Total Creatine Kinase B-Natriuretic Peptide 288 H Total Protein Albumin Urine Color YELLOW Urine Appearance CLOUDY Urine pH 6.0 Ur Specific [place] 1.025 Urine Protein 2+ H Urine Glucose (UA) NEG Urine Ketones NEG Urine Blood 3+ H Urine Nitrite NEG Ur Leukocyte Esterase 3+ H Urine RBC 50-75 H Urine WBC TNTC H Ur Squamous Epith Cells 2+ Urine Bacteria 2+ 10/07/21 15:51 MCV MCH MCHC RDW Plt Count MPV Immature Gran % (Auto) Neut % (Auto) Lymph % (Auto) [place] % (Auto) Eos % (Auto) Baso % (Auto) Lymph # (Auto) [place] # (Auto) Eos # (Auto) Baso # (Auto) Abs Immat Gran (auto) Absolute Neuts (auto) Absolute Nucleated RBC Nucleated RBC % (auto) PT INR Anion Gap Estim Creat Clear Calc Estimated GFR Random Glucose Lactic Acid Lactic Acid F/U @ 2Hr 1.0 Calcium Total Bilirubin AST ALT Alkaline Phosphatase Total Creatine Kinase B-Natriuretic Peptide Total Protein Albumin Urine Color Urine Appearance Urine pH Ur Specific [place] Urine Protein Urine Glucose (UA) Urine Ketones Urine Blood Urine Nitrite Ur Leukocyte Esterase Urine RBC Urine WBC Ur Squamous Epith Cells Urine Bacteria Imaging Radiologist's Impressions: Impressions Chest X-Ray 10/07/21 14:05 IMPRESSION: Unremarkable examination. Assessment and Plan (1) Sepsis: Status: Acute (2) Rhabdomyolysis: Status: Acute (3) CRISTIANA (acute kidney injury): Status: Acute (4) Acute UTI: Status: Acute (5) Stenosis of lumbosacral spine: Status: Acute Plan 71 yo M with history of CHF, CKD, prostate cancer s/p XRT, radiation cystitis, HTN, HLD presented with dysuria admitted for severe sepsis due to UTI/bacteremia # severe sepsis sec to uti hx Klebsiella bacteremia, urinary source, resistant to ampicillin Started on ceftriaxone, sepsis is a exam completed, patient also received 30 cc bolus will start on gentle hydration, blood pressure is improving previously had thrombocytopenia which is improved. follow-up with cultures. # CRISTIANA/CKD3 - prerenal azotemia vs septic ATN, resolved; SCr now at baseline continue gentle hydration # rhabdomyolysis due to falls continue hydration, monitor CPK nephro eval # hx HTN - amlodipine held due to soft BP # HLD - statin # back pain/falls , progressive lower extremity weakness- from last 4-5 months getting worse. MRI was done recently:MR/MR lumbar spine wo con IMPRESSION: At L3-L4 there are multifactorial degenerative changes including large right subarticular/foraminal extrusion resulting in severe spinal canal stenosis with compression of the thecal sac and traversing right more than left L4 nerve roots. Mild to moderate compression of the exiting right L3 nerve root. ? At L2-L3 there is left subarticular stenosis with compression of the traversing left L3 nerve root. ? At L4-L5 there is mild to moderate left and moderate right neural foraminal stenosis and mild compression of the exiting right L4 nerve root. continue dexamethasone, muscle relaxant , neuro evaluation patient also says that he has appointment with his spine surgeon in last the week of this month. # VTE ppx - UFH above management discussed the patient in detail length he understand and in agreement with above plan, time spent 70 minute, Patient full code. Considering CRISTIANA, rhabdomyolysis, UTI as well as progressive weakness patient may benefit from to midnight stays. Quality Stroke Does the patient have a stroke diagnosis?: No VTE Prior VTE?: No VTE Risk Level:: Medical - moderate - high VTE Device Contraindication: N/A - Device Ordered VTE Drug Contraindication: N/A - Med Ordered
[2021-10-07] MEDS: Heparin Sodium,Porcine 5,000 UNIT/ML VIAL 5000 UNIT SUBCUT (17:09)
[2021-10-07] MEDS: cefTRIAXone sodium 1 GM in 0.9 % Sodium Chloride 50 ML IV (17:10)
--- NOTE | 2021-10-07 17:24 | MHC.CM.PN ---
IMM 10/07. HCP on file. HCP/ Vanesa Ramos ([phone]). NOT vaccinated against Covid 19. 100% [employer]. No [facility] services/pharmacy. Uses cane. No services. D/C 1 week ago from STR at [facility]. D/C plan: home with ? VNA. No referrals placed. Pt refuses STR at this time. VNA only if necessary. CM will follow for d/c needs.
[2021-10-07] MEDS: dexAMETHasone 2 MG TABLET 10 MG PO (17:49)
[2021-10-07] MEDS: Lactated Ringers 1,000 ML 80 ML IVCONT (19:00)
--- NOTE | 2021-10-07 19:40 | PC.NURSE ---
Addendum entered by Amanda Sanders 10/08/21 03:03: report given to LUIS Dominguez Original Note: repor received from LUIS Noland. pt is alert and oriented. resting in bed. no signs of acute distress notice. breathing equally unlabored. pt on continuos cardiac monitoring
[2021-10-07] MEDS: dexAMETHasone 2 MG TABLET PO (21:07)
[2021-10-07] MEDS: oxyCODONE HCl Immed Release 5 MG TABLET 2.5 MG PO (21:07)
[2021-10-07] MEDS: Gabapentin 300 MG CAPSULE PO (21:07)
[2021-10-07 23:16] LABS: COVID-19 Test Negative (Negative); IDNOW Serial# 16C4AD1C
[2021-10-08] VITALS (8 sets, daily range): BP systolic 94–125; BP diastolic 57–65; PULSE 71–93; RESP 14–18; TEMP 35.8–36.6; O2SAT 91–96; BMI 25.0
[2021-10-08] MEDS: Heparin Sodium,Porcine 5,000 UNIT/ML VIAL 5000 UNIT SUBCUT ×4 (02:34→23:43)
--- NOTE | 2021-10-08 03:57 | PC.NURSE ---
Report taken from LUIS Patel at 3:00. Amanda attempted to call report with this RN present, was told by staff that the nurse will call you back. This RN gave report to LUIS Estrada on S3, patient transferred by technical specloco Michelle to room 373.
--- NOTE | 2021-10-08 05:19 | PC.NURSE ---
PATIENT ADMITTED VIA STRETCHER FROM ED SETTING AT 0350 WITH RHABDOMYOLYSIS, FREQUENT FALLS AT HOME, AND LOWER LEG PAIN AND WEAKNESS. ALERT, ORIENTED, CALM, AND COOPERATIVE. PT FROM HOME WITH HIS AND STATED HE HAS HAD MULTIPLE FALLS AT HOME DUE TO LEG WEAKNESS. CONSULT SENT TO [facility] FOR SKIN CONCERNS; THERE ARE SEVERAL RED SHEARING AREAS, ABRASIONS, REDNESS, AND SORES TO BILATERAL KNEES AND TO RIGHT OUTER ELBOW. PT STATED FROM CRAWLING ON THE CARPET AFTER FALLS AND SUFFERED RUG MACIEL . ALSO NOTED SOME LIGHT REDNESS AND FIRMNESS TO PERINEUM AREA, AND SCROTAL REDNESS. SORES WILL NEED ONITMENT AND COVERINGS TO HEAL. AREAS CLEANSED AND LEFT ERNESTO FOR NOW. THERE IS NO ODOR, DRAINAGE, OR BLEEDING TO SORES OR RED SKIN SURROUNDING THEM. PT DENIED PAIN, VSS, ROOM AIR 96%. [place] CATHETER IN PLACE WITH ANDREI URINE.ADMISSION QUESTIONS COMPLETED, PT HAD PO FLUIDS, WATCHED SOME TV, THEN NOTED TO FALL ASLEEP. HFR WITH BED ALARM INITIATED.. PT EDUCATED TO USE CALL [facility] TO ALERT STAFF TO NEEDS AND NOT TO GET OOB ALONE. CONTINUE TO MONITOR.
[2021-10-08 05:58] LABS: Hematocrit 28.9 % (42.0-52.0); Hemoglobin 8.8 g/dl (14.0-18.0); Mean Corpuscular HGB Conc 30.4 g/dl (31.0-36.0); Mean Corpuscular Hemoglobin 29.4 pg (27.0-33.0); Mean Corpuscular Volume 96.7 fL (80.0-98.0); Mean Platelet Volume 10.4 fL (9.4-12.4); Platelet Count 128 X10*3/uL (160-400); Red Blood Count 2.99 X10*6/uL (4.60-5.80); Red Cell Distribution Width 17.2 % (11.0-16.0); White Blood Count 8.9 X10*3/uL (4.8-10.8)
[2021-10-08 06:13] LABS: Anion Gap 17 (12-20); Blood Urea Nitrogen 54 mg/dL (9-16); Calcium 7.7 mg/dL (8.4-10.2); Carbon Dioxide 18 mmol/L (22-29); Chloride 112 mmol/L (96-108); Creatinine Clr Calc Pharmacy 33.6; Estimated Glomerular Filt Rate 29; Glucose Random 171 mg/dL (60-115); Potassium 5.8 mmol/L (3.3-5.1); Sodium 141 mmol/L (135-145)
--- NOTE | 2021-10-08 06:46 | PC.NURSE ---
wound photos taken and put in chart.
[2021-10-08] MEDS: Sodium Bicarbonate 8.4% 150 MEQ in Dextrose 5 % 850 ML 125 MEQ IV ×2 (08:45→18:20)
[2021-10-08] MEDS: oxyCODONE HCl Immed Release 5 MG TABLET 2.5 MG PO (08:48)
[2021-10-08] MEDS: dexAMETHasone 2 MG TABLET PO ×2 (08:49→19:51)
[2021-10-08] MEDS: Gabapentin 300 MG CAPSULE PO ×3 (08:49→19:51)
[2021-10-08] MEDS: Cyanocobalamin (Vitamin B-12) 1,000 MCG TABLET 1000 MCG PO (08:49)
[2021-10-08] MEDS: 0.9 % Sodium Chloride Flush 3 ML SYRINGE IVFLUSH ×3 (08:51→19:51)
--- NOTE | 2021-10-08 10:25 | P.CONNP_ITS ---
History of Present Illness Reason for Consult Consult date: 10/08/21 Chief Complaint Chief complaint: Rhabdo, Progressive lower ext pain/weakness PMFSH Past Medical History Medical History Falls Hematuria Hypercholesteremia Hypertension Kidney disease Macular degeneration Prostate cancer Urgency incontinence Family History Family History Other No family history of coronary artery disease Surgical History Surgical History History of back surgery History of penile implant History of prostate surgery Social History Social History Household Members: Spouse Housing: House Do you presently have visiting nurse or other home services: No Alcohol intake: never Patient Tobacco Use Status: Current everyday Tobacco user Smoking Start Date: 06/18/61 Tobacco use type: Cigarette Cigarette Packs Per Day: 0.5 Cigarettes Per Day: 10.0 e-Cigarette/Vaping Use: Never Used Second Hand Smoke Exposure: No Advance Directives Date on File: 02/19/21 service: Yes Current occupational status: retired [employer] Allergies Allergy/AdvReac Type Severity Reaction Status Date / Time No Known Allergies Allergy Verified 07/16/21 10:10 [No Known Allergies*] Active Medications: Current Medications Cyanocobalamin (Cyanocobalamin (Vitamin B-12) 1,000 Mcg Tablet) 1,000 mcg PO DAILY [facility] Last Admin: 10/08/21 08:49 Dose: 1,000 mcg Documented by: Dexamethasone (Dexamethasone 2 Mg Tablet) 2 mg PO Q12H [facility] Last Admin: 10/08/21 08:49 Dose: 2 mg Documented by: Gabapentin (Gabapentin 300 Mg Capsule) 300 mg PO TID [facility] Last Admin: 10/08/21 08:49 Dose: 300 mg Documented by: Heparin Sodium (Porcine) (Heparin Sodium,Porcine 5,000 Unit/Ml Vial) 5,000 unit SUBCUT Q8H [facility] Last Admin: 10/08/21 08:49 Dose: 5,000 unit Documented by: Ceftriaxone Sodium 1 gm/ (Sodium Chloride) 50 mls @ 100 mls/hr IV Q24H [facility] Last Infusion: 10/07/21 17:45 Dose: Infused Documented by: Sodium Bicarbonate 150 meq/ (Dextrose) 1,000 mls @ 125 mls/hr IV .Q8H [facility] Stop: 10/08/21 23:44 Last Admin: 10/08/21 08:45 Dose: 125 mls/hr Documented by: Non-Formulary Medication (Lutein) 20 mg PO DAILY [facility] Oxycodone HCl (Oxycodone Hcl Immed Release 5 Mg Tablet) 2.5 mg PO Q2H PRN PRN Reason: Pain, Mild (Pain Scale 1-3) Last Admin: 10/08/21 08:48 Dose: 2.5 mg Documented by: Sodium Chloride (0.9 % Sodium Chloride Flush 3 Ml Syringe) [facility] Admin: 10/08/21 08:51 Dose: 3 ml Documented by: Sodium Zirconium Cyclosilicate (Sodium Zirconium Cyclosilicate 10 Gm Powd.Pack) 10 gm PO ONCE ONE Stop: 10/08/21 10:17 Home Medications Medication Instructions Recorded Confirmed Last Taken Type cyanocobalamin (vitamin B-12) 1 tab PO DAILY 08/22/21 10/07/21 10/07/21 History 1,000 mcg tablet lutein 20 mg capsule 20 mg PO DAILY 08/22/21 10/07/21 08/22/21 History amlodipine 5 mg tablet 1 tab PO DAILY 10/07/21 10/07/21 10/07/21 History dexamethasone 2 mg tablet 1 tab PO Q12H 10/07/21 10/07/21 Unknown History gabapentin 300 mg capsule 1 cap PO TID 10/07/21 10/07/21 10/07/21 History Physical Exam Vital Signs: Last Vital Signs Temp 97.5 F 10/08/21 07:27 Pulse 72 10/08/21 07:27 Resp 17 10/08/21 07:27 BP 99/60 10/08/21 07:27 Pulse Ox 95 10/08/21 07:27 BMI result Body Mass Index 25.0 Results Lab Results Result Diagrams: 10/08/21 05:49 10/08/21 05:49 Lab results: Chemistry 10/07/21 10/08/21 12:47 05:49 Sodium 140 141 Potassium 4.6 5.8 H D Carbon Dioxide 21 L 18 L BUN 55 H D 54 H Creatinine 2.68 H 2.21 H Calcium 8.1 L D 7.7 L Hematology 10/07/21 10/08/21 12:47 05:49 WBC 13.1 H 8.9 Hgb 10.2 L 8.8 L Plt Count 173 D 128 L D Urinalysis 10/07/21 13:47 Urine Color YELLOW Urine Appearance CLOUDY Urine pH 6.0 Ur Specific [place] 1.025 Urine Protein 2+ H Urine Glucose (UA) NEG Urine Ketones NEG Urine Blood 3+ H Urine Nitrite NEG Ur Leukocyte Esterase 3+ H Urine RBC 50-75 H Urine WBC TNTC H Ur Squamous Epith Cells 2+ Assessment and Plan (1) CRISTIANA (acute kidney injury): Status: Acute Plan Pt seen and examined CRISTIANA on CKd with hyperchloremic metabolic acidosis/hyperkalemia Suggest IV hydration with bicarb Lokelma Low K diet Renal ultrasound to r/o obstruction/retention Full consult dictated Thanks Procedures Date of Service Date of Service: 10/08/21
[2021-10-08] MEDS: Sodium Zirconium Cyclosilicate 10 GM POWD.PACK PO (11:21)
--- NOTE | 2021-10-08 14:17 | P.CNID_ITS ---
History of Present Illness Data of Consult Service Date: 10/08/21 Requesting physician: Anatoliy Bullock Primary Care Provider: Jose G Dickerson MD HPI Reason for consult: bacteremia He presents with weakness and inability to ambulate well over last two weeks,worsening. He was resident at [facility]. He has bacteremia and bacteriuria. Review of Systems Review of Systems: Yes all other systems are reviewed and are negative [facility] Past Medical History Medical History Falls Hematuria Hypercholesteremia Hypertension Kidney disease Macular degeneration Prostate cancer Urgency incontinence Family History Family History Other No family history of coronary artery disease Family history: reviewed and not pertinent Surgical History Surgical History History of back surgery History of penile implant History of prostate surgery Social History Social History Household Members: Spouse Housing: House Do you presently have visiting nurse or other home services: No Alcohol intake: never Patient Tobacco Use Status: Current everyday Tobacco user Smoking Start Date: 06/18/61 Tobacco use type: Cigarette Cigarette Packs Per Day: 0.5 Cigarettes Per Day: 10.0 e-Cigarette/Vaping Use: Never Used Second Hand Smoke Exposure: No Advance Directives Date on File: 02/19/21 service: Yes Current occupational status: retired Meds Allergies Allergy/AdvReac Type Severity Reaction Status Date / Time No Known Allergies Allergy Verified 07/16/21 10:10 [No Known Allergies*] Active Medications: Current Medications Cyanocobalamin (Cyanocobalamin (Vitamin B-12) 1,000 Mcg Tablet) 1,000 mcg PO DAILY [facility] Last Admin: 10/08/21 08:49 Dose: 1,000 mcg Documented by: Dexamethasone (Dexamethasone 2 Mg Tablet) 2 mg PO Q12H [facility] Last Admin: 10/08/21 08:49 Dose: 2 mg Documented by: Gabapentin (Gabapentin 300 Mg Capsule) 300 mg PO TID [facility] Last Admin: 10/08/21 08:49 Dose: 300 mg Documented by: Heparin Sodium (Porcine) (Heparin Sodium,Porcine 5,000 Unit/Ml Vial) 5,000 unit SUBCUT Q8H [facility] Last Admin: 10/08/21 08:49 Dose: 5,000 unit Documented by: Ceftriaxone Sodium 1 gm/ (Sodium Chloride) 50 mls @ 100 mls/hr IV Q24H [facility] Last Infusion: 10/07/21 17:45 Dose: Infused Documented by: Sodium Bicarbonate 150 meq/ (Dextrose) 1,000 mls @ 125 mls/hr IV .Q8H [facility] Stop: 10/08/21 23:44 Last Admin: 10/08/21 08:45 Dose: 125 mls/hr Documented by: Non-Formulary Medication (Lutein) 20 mg PO DAILY [facility] Oxycodone HCl (Oxycodone Hcl Immed Release 5 Mg Tablet) 2.5 mg PO Q2H PRN PRN Reason: Pain, Mild (Pain Scale 1-3) Last Admin: 10/08/21 08:48 Dose: 2.5 mg Documented by: Sodium Chloride (0.9 % Sodium Chloride Flush 3 Ml Syringe) 3 ml IVFLUSH QSHIFT [facility] Last Admin: 10/08/21 08:51 Dose: 3 ml Documented by: Home Medications Medication Instructions Recorded Confirmed Last Taken Type cyanocobalamin (vitamin B-12) 1 tab PO DAILY 08/22/21 10/07/21 10/07/21 History 1,000 mcg tablet lutein 20 mg capsule 20 mg PO DAILY 08/22/21 10/07/21 08/22/21 History amlodipine 5 mg tablet 1 tab PO DAILY 10/07/21 10/07/21 10/07/21 History dexamethasone 2 mg tablet 1 tab PO Q12H 10/07/21 10/07/21 Unknown History gabapentin 300 mg capsule 1 cap PO TID 10/07/21 10/07/21 10/07/21 History Physical Exam Vital Signs: Vital Signs: Last Vital Signs Temp 97.9 F 10/08/21 11:13 Pulse 78 10/08/21 11:13 Resp 18 10/08/21 11:13 BP 100/57 L 10/08/21 11:13 Pulse Ox 93 10/08/21 11:13 BMI result Body Mass Index 25.0 Const: General: cooperative HEENT: Mouth: Normal oral and palatal mucosa present Eyes: General: appearance normal, both eyes and all related structures Resp: Effort & Inspection: normal respiratory effort Cardio: Rate: regular rate Rhythm: regular rhythm GI: Palpation (GI): Soft to palpation and nontender Skin: General skin exam: no rashes or lesions noted Extrem: General: Yes normal to inspection Results Labs CBC & Chem 7: 10/08/21 05:49 10/08/21 05:49 Labs: Short CBC 10/08/21 Range/Units 05:49 WBC 8.9 (4.8-10.8) X10*3/uL Hgb 8.8 L (14.0-18.0) g/dl Hct 28.9 L (42.0-52.0) % Plt Count 128 L D (160-400) X10*3/uL BMP 10/08/21 05:49 Sodium 141 Potassium 5.8 H D Chloride 112 H Carbon Dioxide 18 L BUN 54 H Creatinine 2.21 H Calcium 7.7 L Cardiac Enzymes 10/08/21 Range/Units 05:49 Total Creatine Kinase 3907 H D (38-174) U/L Microbiology Microbiology Results: Microbiology 10/07/21 00:00 Urine Catheterized - Straight Catheter Urine Culture - Preliminary Gram negative jacobo 10/07/21 13:30 Blood - Venous Blood Culture - Preliminary Prelim: GNR Gram Stain only 10/07/21 12:47 Blood - Venous Blood Culture - Preliminary Prelim: GNR Gram Stain only Assessment and Plan (1) Acute UTI: Status: Acute (2) Sepsis: Status: Acute He has bacteremia This is likely related to bladder stasis He has had recurrent UTIs Less likely abdominal abscess or obstruction. Plan Check abdominal CT look for hydronephrosis or urinary obstruction (patient with known h/o prostate cancer) Continue Ceftriaxone Urology if obstruction.
--- NOTE | 2021-10-08 15:48 | HO.PM.IMPN ---
Subjective Subjective Date of Service: 10/08/21 Interval History: no acute issues overnight Review of Systems denies chest pain Denies shortness of breath Denies nausea vomiting diarrhea Denies fever and chills Physical Exam Vital Signs: Vital Signs: Last Vital Signs Temp 97.9 F 10/08/21 11:13 Pulse 78 10/08/21 11:13 Resp 18 10/08/21 11:13 BP 100/57 L 10/08/21 11:13 Pulse Ox 93 10/08/21 11:13 BMI result Body Mass Index 25.0 Const: Other: ill-appearing Resp: Other: clear to auscultation bilaterally no rales rhonchi or wheezes Cardio: Other: no S4; positive S1-S2; no S3 murmurs rubs or gallops GI: Other: soft nontender nondistended normoactive bowel sounds Extrem: Other: no edema bilaterally Objective Data Active Medications Cyanocobalamin (Cyanocobalamin (Vitamin B-12) 1,000 Mcg Tablet) 1,000 mcg PO DAILY [facility] Last Admin: 10/08/21 08:49 Dose: 1,000 mcg Documented by: JEAN Dexamethasone (Dexamethasone 2 Mg Tablet) 2 mg PO Q12H [facility] Last Admin: 10/08/21 08:49 Dose: 2 mg Documented by: JEAN Gabapentin (Gabapentin 300 Mg Capsule) 300 mg PO TID [facility] Last Admin: 10/08/21 14:22 Dose: 300 mg Documented by: JEAN Heparin Sodium (Porcine) (Heparin Sodium,Porcine 5,000 Unit/Ml Vial) 5,000 unit SUBCUT Q8H [facility] Last Admin: 10/08/21 08:49 Dose: 5,000 unit Documented by: JEAN Ceftriaxone Sodium 1 gm/ (Sodium Chloride) 50 mls @ 100 mls/hr IV Q24H [facility] Last Infusion: 10/07/21 17:45 Dose: 0 mls/hr Documented by: DECLAN Sodium Bicarbonate 150 meq/ (Dextrose) 1,000 mls @ 125 mls/hr IV .Q8H [facility] Stop: 10/08/21 23:44 Last Admin: 10/08/21 08:45 Dose: 125 mls/hr Documented by: JEAN Non-Formulary Medication (Lutein) 20 mg PO DAILY [facility] Oxycodone HCl (Oxycodone Hcl Immed Release 5 Mg Tablet) 2.5 mg PO Q2H PRN PRN Reason: Pain, Mild (Pain Scale 1-3) Last Admin: 10/08/21 08:48 Dose: 2.5 mg Documented by: JEAN Sodium Chloride (0.9 % Sodium Chloride Flush 3 Ml Syringe) 3 ml IVFLUSH QSHIFT [facility] Last Admin: 10/08/21 08:51 Dose: 3 ml Documented by: JEAN Labs CBC & Chem 7: 10/08/21 05:49 10/08/21 05:49 Labs: Laboratory Results - last 24 hr 10/07/21 10/07/21 10/08/21 15:51 22:42 05:49 MCV 96.7 MCH 29.4 MCHC 30.4 L RDW 17.2 H Plt Count 128 L D MPV 10.4 Absolute Nucleated RBC 0.000 Nucleated RBC % (auto) 0.0 Anion Gap Estim Creat Clear Calc Estimated GFR Random Glucose Lactic Acid F/U @ 2Hr 1.0 Calcium Total Creatine Kinase COVID-19 (SHARAD) Negative COVID-19 Clin Com See Note 10/08/21 05:49 MCV MCH MCHC RDW Plt Count MPV Absolute Nucleated RBC Nucleated RBC % (auto) Anion Gap 17 Estim Creat Clear Calc 33.6 Estimated GFR 29 Random Glucose 171 H D Lactic Acid F/U @ 2Hr Calcium 7.7 L Total Creatine Kinase 3907 H D COVID-19 (SHARAD) COVID-19 Clin Com Microbiology Microbiology Results: Microbiology 10/07/21 00:00 Urine Culture - Preliminary Urine Catheterized - Straight Catheter Gram negative jacobo 10/07/21 13:30 Blood Culture - Preliminary Blood - Venous Prelim: GNR Gram Stain only 10/07/21 12:47 Blood Culture - Preliminary Blood - Venous Prelim: GNR Gram Stain only Assessment and Plan (1) Sepsis: Status: Acute (2) UTI (urinary tract infection): Status: Acute (3) CRISTIANA (acute kidney injury): Status: Acute (4) Rhabdomyolysis: Status: Acute Plan 71 yo M with history of CHF, CKD, prostate cancer s/p XRT, radiation cystitis, HTN, HLD presented with dysuria and sepsis r/t UTI 1.Severe sepsis R/T UTI -2/2 BC GNR;hx Klebsiella bacteremia, urinary source, resistant to ampicillin - continue ceftriaxone awaiting ID and sensitivities - sepsis resolved 2.CRISTIANA/CKD3 -responding to volume repletion -follow renals/divalents 3.Rhabdomyolysis -CKs trending down -continue Bicarb drip -follow potassium;recheck. If elevated...Lokelma 4.HTN - acceptable control off all therapies - add back when clinically appropriate ? Heparin requires ongoing hospitalization for IV bicarbonate drip to treat rhabdomyolysis Full code Requires ongoing hospitalization for IV bicarbonate drip to treat rhabdomyolysis Quality Stroke Does the patient have a stroke diagnosis?: No VTE Prior VTE?: No VTE Risk Level:: Medical - moderate - high VTE Device Contraindication: N/A - Device Ordered VTE Drug Contraindication: N/A - Med Ordered
[2021-10-08] MEDS: cefTRIAXone sodium 1 GM in 0.9 % Sodium Chloride 50 ML IV (17:16)
--- NOTE | 2021-10-08 17:16 | CONS_ITS ---
DATE OF SERVICE: 10/08/2021 REASON FOR CONSULTATION: I was called to see this patient today to assist with management of acute kidney injury. HISTORY OF PRESENT ILLNESS: To summarize, Keshav has a history of chronic kidney disease. He has a history of prostate cancer, hypertension, diabetes mellitus, and he comes in because of frequent falls and was found to have elevated CPK around 6000. At the time of admission, he had acute kidney injury, however, that this morning in the ER he has also developed hyperkalemia. At the time of admission, he was hypotensive. He was diagnosed with sepsis and is currently on antibiotics. The blood pressure has improved at present. Ongoing medical problems include history of chronic kidney disease, prostate cancer, hypertension, hematuria, urinary incontinence. FAMILY HISTORY: Noncontributory. SURGICAL HISTORY: Includes penile implant, prostate surgery and back surgery. SOCIAL HISTORY: He continues to smoke cigars. He smokes cigarettes about 10 a day. ALLERGIES: NO KNOWN DRUG ALLERGIES. MEDICATION: At home included vitamin B12, lutein, amlodipine, dexamethasone, gabapentin. CURRENT MEDICATIONS: Reviewed. REVIEW OF SYSTEMS: Positive for incontinence. He had a suprapubic discomfort. No nausea or vomiting. No shortness of breath. No fever. No diarrhea or constipation. History of frequent falls and weakness. PHYSICAL EXAMINATION: GENERAL: Keshav is awake, comfortable, not in distress. NECK: Supple. No JVD. HEENT: Mucosa is dry. LUNGS: Air entry equal. Decreased air entry in bases with some scattered rhonchi. HEART: S1, S2 heard. No gallop. ABDOMEN: Soft, nontender. NEUROLOGIC: Alert and awake. No asterixis. VITAL SIGNS: Blood pressure this morning was 100/60, pulse 72. LABORATORY DATA: Hemoglobin 8.8, platelets 128,000. WBC 8.9, sodium 141, potassium 4.8, CO2 18, BUN 54, creatinine 2.21, calcium 7.7. CPK has decreased with 3907 from 6437. Urine showed 2+ protein and 3+ blood, which is rather chronic. CT of the head done on admission showed no acute intracranial process. ASSESSMENT: 1. Proximal acute kidney superimposed on chronic kidney disease. 2. Hyperchloremic metabolic acidosis with hyperkalemia. 3. Rhabdomyolysis. 4. Significant anemia with mild thrombocytopenia. 5. Sepsis. 6. Hypocalcemia. Acute kidney injury is superimposed on chronic kidney disease and acute kidney injury is probably due to obstructive uropathy. However, low blood pressure leading to hypoperfusion in the setting of sepsis could also be another possibility. He could have progressed to ischemic ATN as well. Further clinical course will determine this. The baseline creatinine is close to 1.5 mg/dL. RECOMMENDATION: Is to obtain renal ultrasonogram to rule out obstructive uropathy/urinary retention. Start sodium bicarbonate 650 mg p.o. t.i.d. to correct acidosis. Lokelma 10 g p.o. x1 dose to correct hyperkalemia and keep him on a low-potassium diet. Keep intake more than the output. Agree with current IV hydration. Although, he has slightly elevated CPK levels, I do not think he has significant pigment nephropathy to explain the acute kidney injury. We will follow the CPK levels. Thank you for allowing me to participate in the medical management of this patient. We will follow him closely with the team. Jon Ma MD BPA/MODL / [id number]
[2021-10-08 18:15] LABS: Anion Gap 15 (12-20); Blood Urea Nitrogen 54 mg/dL (9-16); Calcium 7.5 mg/dL (8.4-10.2); Carbon Dioxide 21 mmol/L (22-29); Chloride 109 mmol/L (96-108); Creatinine Clr Calc Pharmacy 37.5; Estimated Glomerular Filt Rate 33; Glucose Fasting 154 mg/dL (60-99); Sodium 141 mmol/L (135-145)
[2021-10-09] VITALS (10 sets, daily range): BP systolic 111–138; BP diastolic 56–73; PULSE 73–90; RESP 16–18; TEMP 35.9–36.9; O2SAT 91–98
[2021-10-09] MEDS: Heparin Sodium,Porcine 5,000 UNIT/ML VIAL 5000 UNIT SUBCUT ×2 (09:22→16:17)
[2021-10-09] MEDS: Gabapentin 300 MG CAPSULE PO ×3 (09:22→21:24)
[2021-10-09] MEDS: dexAMETHasone 2 MG TABLET PO ×2 (09:23→21:23)
[2021-10-09] MEDS: 0.9 % Sodium Chloride Flush 3 ML SYRINGE IVFLUSH ×2 (09:23→16:10)
--- NOTE | 2021-10-09 10:12 | PM.PNNEP ---
Subjective Subjective Date of Service: 10/10/21 Interval history: no acute issues overnight Physical Exam Vital Signs: Vital Signs: Last Vital Signs Temp 97.4 F 10/09/21 08:00 Pulse 74 10/09/21 08:00 Resp 17 10/09/21 08:00 BP 117/69 10/09/21 08:00 Pulse Ox 91 L 10/09/21 08:00 O2 Del Method 10/09/21 08:00 O2 Flow Rate 2 10/07/21 17:13 BMI result Body Mass Index 25.0 Const: Other: ill-appearing General: cooperative HEENT: Mouth: Normal oral and palatal mucosa present Eyes: General: appearance normal, both eyes and all related structures Resp: Other: clear to auscultation bilaterally no rales rhonchi or wheezes Effort & Inspection: normal respiratory effort Cardio: Other: no S4; positive S1-S2; no S3 murmurs rubs or gallops Rate: regular rate Rhythm: regular rhythm GI: Other: soft nontender nondistended normoactive bowel sounds Palpation (GI): Soft to palpation and nontender Skin: General skin exam: no rashes or lesions noted Extrem: Other: no edema bilaterally General: Yes normal to inspection Objective Data Labs CBC & Chem 7: 10/10/21 05:48 10/10/21 05:48 Labs: Laboratory Results - last 24 hr 10/08/21 17:46 Sodium 141 Potassium 4.0 D Chloride 109 H Carbon Dioxide 21 L Anion Gap 15 BUN 54 H Creatinine 1.98 H Estim Creat Clear Calc 37.5 Estimated GFR 33 Fasting Glucose 154 H D Calcium 7.5 L Total Creatine Kinase 2679 H Microbiology Microbiology Results: Microbiology 10/07/21 13:30 Blood - Venous Blood Culture - Preliminary Gram negative jacobo 10/07/21 12:47 Blood - Venous Blood Culture - Preliminary Gram negative jacobo 10/07/21 00:00 Urine Catheterized - Straight Catheter Urine Culture - Final Klebsiella pneumoniae Procedures Date of Service Date of Service: 10/09/21 Assessment & Plan Assessment and plan (1) CRISTIANA (acute kidney injury): Status: Acute Plan CRISTIANA on CKd with hyperchloremic metabolic acidosis/hyperkalemia No obstruction by imaging s/p IV hydration with bicarb Acidosis is better with CO2 of 21 No need for further IV F as the renal function is close to baseline Hyperkalemia stands corrected Lokelma prn if K > 5.2 Low K diet Hypocalcemia Added iPTH levels Time Spent With Patient Time: Total time spent is greater than 50% in coordination of care (as documented) at patient's floor/unit and/or counseling patient: Progress Note: Quality Stroke Does the patient have a stroke diagnosis?: No
[2021-10-09 10:27] LABS: Basophils Percent Auto 0.1 % (0-2); Hematocrit 30.4 % (42.0-52.0); Hemoglobin 9.5 g/dl (14.0-18.0); Imm Gran Abs Auto 0.08 X10*3/uL (0.00-0.03); Imm Gran Pct Auto 0.8 % (0.0-0.4); Lymphocytes Absolute Auto 0.3 X10*3/uL (1.2-4.9); Lymphocytes Percent Auto 3.3 % (20-40); MANUAL DIFF FLAG SCAN; Mean Corpuscular HGB Conc 31.3 g/dl (31.0-36.0); Mean Corpuscular Hemoglobin 29.7 pg (27.0-33.0); Mean Platelet Volume 10.2 fL (9.4-12.4); Monocytes Absolute Auto 0.2 X10*3/uL (0.1-1.2); Monocytes Percent Auto 2.2 % (2-11); Neutrophils Absolute Auto 9.3 x10*3/uL (2.0-8.3); Neutrophils Percent Auto 93.6 % (45-73); Platelet Count 145 X10*3/uL (160-400); Red Cell Distribution Width 16.7 % (11.0-16.0); SCAN SMEAR FLAG 1
[2021-10-09 10:48] LABS: Alanine Aminotransferase 52 U/L (0-40); Albumin Level 3.3 g/dL (3.5-5.0); Alkaline Phosphatase 59 U/L (39-117); Anion Gap 17 (12-20); Aspartate Amino Transferase 56 U/L (5-37); Bilirubin Total 0.3 mg/dL (0.0-1.0); Blood Urea Nitrogen 28 mg/dL (9-16); Carbon Dioxide 25 mmol/L (22-29); Chloride 106 mmol/L (96-108); Creatinine Clr Calc Pharmacy 36.8; Estimated Glomerular Filt Rate 33; Glucose Fasting 191 mg/dL (60-99); Potassium 4.1 mmol/L (3.3-5.1); Sodium 144 mmol/L (135-145); Total Protein 5.7 g/dL (6.5-8.0)
[2021-10-09 11:04] LABS: SLIDE REVIEW VERIFIED
--- NOTE | 2021-10-09 13:44 | P.PNIM_ITS ---
Subjective Subjective Date of Service: 10/09/21 Interval History: notes improvement overnight ....no acute issues Review of Systems denies chest pain Denies shortness of breath Denies nausea vomiting diarrhea Denies fever chills Physical Exam Vital Signs: Vital Signs: Last Vital Signs Temp 97.6 F 10/09/21 12:00 Pulse 86 10/09/21 12:00 Resp 18 10/09/21 12:00 BP 112/56 L 10/09/21 12:00 Pulse Ox 91 L 10/09/21 12:00 O2 Del Method 10/09/21 12:00 O2 Flow Rate 2 10/07/21 17:13 BMI result Body Mass Index 25.0 Const: Other: ill-appearing Resp: Other: clear to auscultation bilaterally no rales rhonchi or wheezes Cardio: Other: no S4; positive S1-S2; no S3 murmurs rubs or gallops GI: Other: soft nontender nondistended normoactive bowel sounds Extrem: Other: no edema bilaterally Objective Data Active Medications Cyanocobalamin (Cyanocobalamin (Vitamin B-12) 1,000 Mcg Tablet) 1,000 mcg PO DAILY [facility] Last Admin: 10/09/21 09:23 Dose: Not Given Documented By: MAHESH Non-Admin Reason: Patient Refused Dexamethasone (Dexamethasone 2 Mg Tablet) 2 mg PO Q12H [facility] Last Admin: 10/09/21 09:23 Dose: 2 mg Documented By: MAHESH Gabapentin (Gabapentin 300 Mg Capsule) 300 mg PO TID [facility] Last Admin: 10/09/21 09:22 Dose: 300 mg Documented By: MAHESH Heparin Sodium (Porcine) (Heparin Sodium,Porcine 5,000 Unit/Ml Vial) 5,000 unit SUBCUT Q8H [facility] Last Admin: 10/09/21 09:22 Dose: 5,000 unit Documented By: MAHESH Ceftriaxone Sodium 1 gm/ (Sodium Chloride) 50 mls @ 100 mls/hr IV Q24H [facility] Last Infusion: 10/08/21 18:17 Dose: 0 mls/hr Documented By: JEAN Oxycodone HCl (Oxycodone Hcl Immed Release 5 Mg Tablet) 2.5 mg PO Q2H PRN PRN Reason: Pain, Mild (Pain Scale 1-3) Last Admin: 10/08/21 08:48 Dose: 2.5 mg Documented By: JEAN Sodium Chloride (0.9 % Sodium Chloride Flush 3 Ml Syringe) [facility] Last Admin: 10/09/21 09:23 Dose: 3 ml Documented By: MAHESH Labs CBC & Chem 7: 10/09/21 10:18 10/09/21 10:18 Labs: Laboratory Results - last 24 hr 10/08/21 10/09/21 10/09/21 17:46 10:18 10:18 MCV 95.0 MCH 29.7 MCHC 31.3 RDW 16.7 H Plt Count 145 L MPV 10.2 Immature Gran % (Auto) 0.8 H Neut % (Auto) 93.6 H Lymph % (Auto) 3.[address] [facility] % (Auto) 2.2 Eos % (Auto) 0.0 Baso % (Auto) 0.1 Lymph # (Auto) 0.[address] [facility] # (Auto) 0.2 Eos # (Auto) 0.0 Baso # (Auto) 0.0 Abs Immat Gran (auto) 0.08 H Absolute Neuts (auto) 9.3 H Absolute Nucleated RBC 0.000 Nucleated RBC % (auto) 0.0 Smear Tech's Comments VERIFIED Anion Gap 15 17 Estim Creat Clear Calc 37.5 36.8 Estimated GFR 33 33 Fasting Glucose 154 H D 191 H Calcium 7.5 L 8.0 L D Total Bilirubin 0.3 AST 56 H ALT 52 H Alkaline Phosphatase 59 D Total Creatine Kinase 2679 H 1946 H Total Protein 5.7 L Albumin 3.3 L Microbiology Microbiology Results: Microbiology 10/07/21 13:30 Blood Culture - Preliminary Blood - Venous Gram negative jacobo 10/07/21 12:47 Blood Culture - Preliminary Blood - Venous Gram negative jacobo 10/07/21 00:00 Urine Culture - Final Urine Catheterized - Straight Catheter Klebsiella pneumoniae Assessment and Plan (1) Gram-negative bacteremia: Status: Acute (2) CRISTIANA (acute kidney injury): Status: Acute (3) Rhabdomyolysis: Status: Acute Plan 71 yo M with history of CHF, CKD, prostate cancer s/p XRT, radiation cystitis, HTN, HLD presented with dysuria and sepsis r/t UTI 1.GN Bacteremia -2/2 BC GNR;hx Klebsiella bacteremia, urinary source, sensitive to CTX -will discuss duration with ID 2.CRISTIANA/CKD3 -responding to volume repletion -follow renals/divalents 3.Rhabdomyolysis -CKs trending down - no further fluids 4.HTN - acceptable control off all therapies - add back when clinically appropriate ? requires ongoing hospitalization for IV antibiotics to treat bacteremia Quality Stroke Does the patient have a stroke diagnosis?: No VTE Prior VTE?: No VTE Risk Level:: Medical - moderate - high VTE Device Contraindication: N/A - Device Ordered VTE Drug Contraindication: N/A - Med Ordered
--- NOTE | 2021-10-09 15:47 | MHC.CM.PN ---
PHYSICAL THERAPY IS RECOMMENDING SHORT TERM REHAB. PATIENT HAS BEEN RESISTANT TO THIS IDEA. CASE MANAGEMENT TO REINTRODUCE DISCUSSION AND OPTIONS TOMORROW 10/10/21
[2021-10-09] MEDS: cefTRIAXone sodium 1 GM in 0.9 % Sodium Chloride 50 ML IV (16:10)
[2021-10-10] MEDS: 0.9 % Sodium Chloride Flush 3 ML SYRINGE IVFLUSH ×3 (00:21→15:56)
[2021-10-10] MEDS: Heparin Sodium,Porcine 5,000 UNIT/ML VIAL 5000 UNIT SUBCUT ×3 (00:33→15:59)
[2021-10-10 03:55] VITALS: PULSE 74; RESP 16; TEMP 36.7; O2SAT 98
[2021-10-10 06:09] LABS: Basophils Percent Auto 0.1 % (0-2); Hemoglobin 8.8 g/dl (14.0-18.0); Imm Gran Abs Auto 0.09 X10*3/uL (0.00-0.03); Imm Gran Pct Auto 0.9 % (0.0-0.4); Lymphocytes Absolute Auto 0.4 X10*3/uL (1.2-4.9); Lymphocytes Percent Auto 4.1 % (20-40); MANUAL DIFF FLAG SCAN; Mean Corpuscular HGB Conc 31.4 g/dl (31.0-36.0); Mean Corpuscular Hemoglobin 29.7 pg (27.0-33.0); Mean Corpuscular Volume 94.6 fL (80.0-98.0); Mean Platelet Volume 10.5 fL (9.4-12.4); Monocytes Absolute Auto 0.3 X10*3/uL (0.1-1.2); Monocytes Percent Auto 3.1 % (2-11); NRBC Pct Auto 0.2 /100WBC (0.0-0.2); Neutrophils Absolute Auto 8.8 x10*3/uL (2.0-8.3); Neutrophils Percent Auto 91.8 % (45-73); Platelet Count 136 X10*3/uL (160-400); Red Blood Count 2.96 X10*6/uL (4.60-5.80); Red Cell Distribution Width 16.5 % (11.0-16.0); SCAN SMEAR FLAG 1; White Blood Count 9.6 X10*3/uL (4.8-10.8)
[2021-10-10 06:25] LABS: Alanine Aminotransferase 53 U/L (0-40); Albumin Level 3.1 g/dL (3.5-5.0); Alkaline Phosphatase 48 U/L (39-117); Anion Gap 13 (12-20); Aspartate Amino Transferase 43 U/L (5-37); Bilirubin Total 0.3 mg/dL (0.0-1.0); Blood Urea Nitrogen 64 mg/dL (9-16); Calcium 7.9 mg/dL (8.4-10.2); Carbon Dioxide 26 mmol/L (22-29); Chloride 109 mmol/L (96-108); Creatinine Clr Calc Pharmacy 35.4; Estimated Glomerular Filt Rate 31; Glucose Fasting 118 mg/dL (60-99); Potassium 4.4 mmol/L (3.3-5.1); Sodium 144 mmol/L (135-145); Total Protein 5.2 g/dL (6.5-8.0)
[2021-10-10 06:46] LABS: SLIDE REVIEW VERIFIED
[2021-10-10] MEDS: Gabapentin 300 MG CAPSULE PO ×3 (07:38→19:52)
[2021-10-10] MEDS: dexAMETHasone 2 MG TABLET PO ×2 (07:38→19:52)
[2021-10-10 07:51] VITALS: BP 133/71; PULSE 73; RESP 17; TEMP 36.9; O2SAT 93
--- NOTE | 2021-10-10 10:18 | P.PNNP_ITS ---
Subjective Subjective Date of Service: 10/10/21 Interval history: Events noted Feels better Has cough today Physical Exam Vital Signs: Vital Signs: Last Vital Signs Temp 98.4 F 10/10/21 07:51 Pulse 73 10/10/21 07:51 Resp 17 10/10/21 07:51 BP 133/71 10/10/21 07:51 Pulse Ox 93 10/10/21 07:51 O2 Del Method 10/10/21 07:51 O2 Flow Rate 0 10/09/21 15:01 FiO2 93 10/09/21 15:01 BMI result Body Mass Index 25.0 Const: Other: ill-appearing General: cooperative HEENT: Mouth: Normal oral and palatal mucosa present Eyes: General: appearance normal, both eyes and all related structures Resp: Other: clear to auscultation bilaterally no rales rhonchi or wheezes Effort & Inspection: normal respiratory effort Cardio: Other: no S4; positive S1-S2; no S3 murmurs rubs or gallops Rate: regular rate Rhythm: regular rhythm GI: Other: soft nontender nondistended normoactive bowel sounds Palpation (GI): Soft to palpation and nontender Skin: General skin exam: no rashes or lesions noted Extrem: Other: no edema bilaterally General: Yes normal to inspection Objective Data Labs CBC & Chem 7: 10/10/21 05:48 10/10/21 05:48 Labs: Laboratory Results - last 24 hr 10/09/21 10/09/21 10/10/21 10:18 10:18 05:48 WBC 10.0 9.6 RBC 3.20 L 2.96 L Hgb 9.5 L 8.8 L Hct 30.4 L 28.0 L MCV 95.0 94.6 MCH 29.7 29.7 MCHC 31.3 31.4 RDW 16.7 H 16.5 H Plt Count 145 L 136 L MPV 10.2 10.5 Immature Gran % (Auto) 0.8 H 0.9 H Neut % (Auto) 93.6 H 91.8 H Lymph % (Auto) 3.3 L 4.1 L [place] % (Auto) 2.2 3.1 Eos % (Auto) 0.0 0.0 Baso % (Auto) 0.1 0.1 Lymph # (Auto) 0.3 L 0.4 L [place] # (Auto) 0.2 0.3 Eos # (Auto) 0.0 0.0 Baso # (Auto) 0.0 0.0 Abs Immat Gran (auto) 0.08 H 0.09 H Absolute Neuts (auto) 9.3 H 8.8 H Absolute Nucleated RBC 0.000 0.020 H Nucleated RBC % (auto) 0.0 0.2 Smear Tech's Comments VERIFIED VERIFIED Sodium 144 Potassium 4.1 Chloride 106 Carbon Dioxide 25 Anion Gap 17 BUN 28 H Creatinine 2.02 H Estim Creat Clear Calc 36.8 Estimated GFR 33 Fasting Glucose 191 H Calcium 8.0 L D Total Bilirubin 0.3 AST 56 H ALT 52 H Alkaline Phosphatase 59 D Total Creatine Kinase 1946 H Total Protein 5.7 L Albumin 3.3 L 10/10/21 05:48 WBC RBC Hgb Hct MCV MCH MCHC RDW Plt Count MPV Immature Gran % (Auto) Neut % (Auto) Lymph % (Auto) [place] % (Auto) Eos % (Auto) Baso % (Auto) Lymph # (Auto) [place] # (Auto) Eos # (Auto) Baso # (Auto) Abs Immat Gran (auto) Absolute Neuts (auto) Absolute Nucleated RBC Nucleated RBC % (auto) Smear Tech's Comments Sodium 144 Potassium 4.4 Chloride 109 H Carbon Dioxide 26 Anion Gap 13 BUN 64 H D Creatinine 2.10 H Estim Creat Clear Calc 35.4 Estimated GFR 31 Fasting Glucose 118 H D Calcium 7.9 L Total Bilirubin 0.3 AST 43 H ALT 53 H Alkaline Phosphatase 48 Total Creatine Kinase Total Protein 5.2 L Albumin 3.1 L Microbiology Microbiology Results: Microbiology 10/07/21 13:30 Blood - Venous Blood Culture - Final Klebsiella pneumoniae 10/07/21 12:47 Blood - Venous Blood Culture - Final Klebsiella pneumoniae 10/07/21 00:00 Urine Catheterized - Straight Catheter Urine Culture - Final Klebsiella pneumoniae Procedures Date of Service Date of Service: 10/10/21 Assessment & Plan Assessment and plan (1) CRISTIANA (acute kidney injury): Status: Acute Plan CRISTIANA on CKd with hyperchloremic metabolic acidosis/hyperkalemia No obstruction by imaging s/p IV hydration with bicarb Acidosis is better with CO2 of 21 No need for further IV F as the renal function is close to baseline Hyperkalemia stands corrected Lokelma prn if K > 5.2 Low K diet Hypocalcemia Added iPTH levels and pending Time Spent With Patient Time: Total time spent is greater than 50% in coordination of care (as documented) at patient's floor/unit and/or counseling patient: Progress Note: Quality Stroke Does the patient have a stroke diagnosis?: No
[2021-10-10 12:00] VITALS: BP 121/71; PULSE 75; RESP 18; TEMP 36.8; O2SAT 93
--- NOTE | 2021-10-10 14:32 | P.PNIM_ITS ---
Subjective Subjective Date of Service: 10/10/21 Interval History: no acute issues overnight. States slowly improving. Still weak Review of Systems denies chest pain Denies shortness of breath Denies nausea vomiting diarrhea Denies fever chills Physical Exam Vital Signs: Vital Signs: Last Vital Signs Temp 98.2 F 10/10/21 12:00 Pulse 75 10/10/21 12:00 Resp 18 10/10/21 12:00 BP 121/71 10/10/21 12:00 Pulse Ox 93 10/10/21 12:00 O2 Del Method 10/10/21 12:00 O2 Flow Rate 0 10/09/21 15:01 FiO2 93 10/09/21 15:01 BMI result Body Mass Index 25.0 Const: Other: ill-appearing Resp: Other: clear to auscultation bilaterally no rales rhonchi or wheezes Cardio: Other: no S4; positive S1-S2; no S3 murmurs rubs or gallops GI: Other: soft nontender nondistended normoactive bowel sounds Extrem: Other: no edema bilaterally Objective Data Active Medications Cyanocobalamin (Cyanocobalamin (Vitamin B-12) 1,000 Mcg Tablet) 1,000 mcg PO DAILY [facility] Last Admin: 10/10/21 07:39 Dose: Not Given Documented By: MAHESH Non-Admin Reason: Patient Refused Dexamethasone (Dexamethasone 2 Mg Tablet) 2 mg PO Q12H [facility] Last Admin: 10/10/21 07:38 Dose: 2 mg Documented By: MAHESH Gabapentin (Gabapentin 300 Mg Capsule) 300 mg PO TID [facility] Last Admin: 10/10/21 14:17 Dose: 300 mg Documented By: MAHESH Heparin Sodium (Porcine) (Heparin Sodium,Porcine 5,000 Unit/Ml Vial) 5,000 unit SUBCUT Q8H [facility] Last Admin: 10/10/21 07:37 Dose: 5,000 unit Documented By: MAHESH Ceftriaxone Sodium 1 gm/ (Sodium Chloride) 50 mls @ 100 mls/hr IV Q24H [facility] Last Infusion: 10/09/21 17:02 Dose: 0 mls/hr Documented By: KARINA Oxycodone HCl (Oxycodone Hcl Immed Release 5 Mg Tablet) 2.5 mg PO Q2H PRN PRN Reason: Pain, Mild (Pain Scale 1-3) Last Admin: 10/08/21 08:48 Dose: 2.5 mg Documented By: JEAN Sodium Chloride (0.9 % Sodium Chloride Flush 3 Ml Syringe) 3 ml IVFLUSH QSHIFT [facility] Last Admin: 10/10/21 07:39 Dose: 3 ml Documented By: MAHESH Labs CBC & Chem 7: 10/10/21 05:48 10/10/21 05:48 Labs: Laboratory Results - last 24 hr 10/10/21 10/10/21 05:48 05:48 MCV 94.6 MCH 29.7 MCHC 31.4 RDW 16.5 H Plt Count 136 L MPV 10.5 Immature Gran % (Auto) 0.9 H Neut % (Auto) 91.8 H Lymph % (Auto) 4.1 L [place] % (Auto) 3.1 Eos % (Auto) 0.0 Baso % (Auto) 0.1 Lymph # (Auto) 0.4 L [place] # (Auto) 0.3 Eos # (Auto) 0.0 Baso # (Auto) 0.0 Abs Immat Gran (auto) 0.09 H Absolute Neuts (auto) 8.8 H Absolute Nucleated RBC 0.020 H Nucleated RBC % (auto) 0.2 Smear Tech's Comments VERIFIED Anion Gap 13 Estim Creat Clear Calc 35.4 Estimated GFR 31 Fasting Glucose 118 H D Calcium 7.9 L Total Bilirubin 0.3 AST 43 H ALT 53 H Alkaline Phosphatase 48 Total Protein 5.2 L Albumin 3.1 L Microbiology Microbiology Results: Microbiology 10/07/21 13:30 Blood Culture - Final Blood - Venous Klebsiella pneumoniae 10/07/21 12:47 Blood Culture - Final Blood - Venous Klebsiella pneumoniae Assessment and Plan (1) Gram-negative bacteremia: Status: Acute (2) CRISTIANA (acute kidney injury): Status: Acute (3) Hypertension: Status: Acute Plan 71 yo M with history of CHF, CKD, prostate cancer s/p XRT, radiation cystitis, HTN, HLD presented with dysuria and sepsis r/t UTI 1.GN Bacteremia -2/2 BC GNR;hx Klebsiella bacteremia, urinary source, sensitive to CTX -24hr IV ABTX...then switch to po Ceftin x 14 days 2.CRISTIANA/CKD3 -responding to volume repletion -follow renals/divalents 3.Rhabdomyolysis -resolved 4.HTN - acceptable control off all therapies - add back when clinically appropriate 5. Soft tissue mass..buttocks -check US ? requires ongoing hospitalization for IV antibiotics to treat bacteremia Quality Stroke Does the patient have a stroke diagnosis?: No VTE Prior VTE?: No VTE Risk Level:: Medical - moderate - high VTE Device Contraindication: N/A - Device Ordered VTE Drug Contraindication: N/A - Med Ordered
[2021-10-10 15:16] VITALS: BP 149/75; PULSE 78; RESP 18; TEMP 37.1; O2SAT 94
[2021-10-10 15:51] LABS: Calcium (PTHI) 7.7 mg/dL (8.6-10.3); PTHI 96 pg/mL (16-77)
[2021-10-10 16:00] VITALS: BP 149/75; PULSE 78; RESP 18; TEMP 37.1; O2SAT 94
--- NOTE | 2021-10-10 16:05 | MHC.CM.PN ---
CM MET WITH PT TO DISCUSS DC PLANNING PT IS AWARE STR HAS BEEN RECOMMENDED HOWEVER HE REPORTS HE IS UNSURE IF HE IS WILLING TO GO HE REPORTS HE WANTS TO TALK TO HIS AND NEIGHBOR ABOUT POSSIBLE FACILITIES PT PROMISES HE WILL HAVE THE NAME OF PREFERRED SNF AND DC DECISION TOMORROW MORNING CM WILL RETURN
[2021-10-10] MEDS: cefTRIAXone sodium 1 GM in 0.9 % Sodium Chloride 50 ML IV (16:20)
[2021-10-10 18:40] VITALS: BP 175/89; PULSE 133; RESP 18; TEMP 36.4; O2SAT 95
[2021-10-11] VITALS: BP 129/70; PULSE 96; RESP 17; TEMP 36.1; O2SAT 96
[2021-10-11] MEDS: 0.9 % Sodium Chloride Flush 3 ML SYRINGE IVFLUSH ×2 (01:11→09:03)
[2021-10-11] MEDS: Heparin Sodium,Porcine 5,000 UNIT/ML VIAL 5000 UNIT SUBCUT ×2 (01:11→09:03)
[2021-10-11 04:00] VITALS: BP 141/69; PULSE 67; RESP 17; TEMP 36.3; O2SAT 94
[2021-10-11 06:30] LABS: MANUAL DIFF FLAG NO
[2021-10-11 06:35] LABS: Basophils Percent Auto 0.1 % (0-2); Hematocrit 29.8 % (42.0-52.0); Imm Gran Abs Auto 0.22 X10*3/uL (0.00-0.03); Imm Gran Pct Auto 1.9 % (0.0-0.4); Lymphocytes Absolute Auto 0.6 X10*3/uL (1.2-4.9); Lymphocytes Percent Auto 5.3 % (20-40); Mean Corpuscular HGB Conc 30.2 g/dl (31.0-36.0); Mean Corpuscular Volume 96.1 fL (80.0-98.0); Mean Platelet Volume 10.6 fL (9.4-12.4); Monocytes Absolute Auto 0.4 X10*3/uL (0.1-1.2); Monocytes Percent Auto 3.7 % (2-11); Neutrophils Absolute Auto 10.4 x10*3/uL (2.0-8.3); Platelet Count 150 X10*3/uL (160-400); Red Cell Distribution Width 16.4 % (11.0-16.0); White Blood Count 11.7 X10*3/uL (4.8-10.8)
[2021-10-11 07:18] LABS: Alanine Aminotransferase 66 U/L (0-40); Albumin Level 3.3 g/dL (3.5-5.0); Alkaline Phosphatase 54 U/L (39-117); Anion Gap 15 (12-20); Aspartate Amino Transferase 43 U/L (5-37); Bilirubin Total 0.3 mg/dL (0.0-1.0); Blood Urea Nitrogen 75 mg/dL (9-16); Calcium 8.4 mg/dL (8.4-10.2); Carbon Dioxide 26 mmol/L (22-29); Chloride 109 mmol/L (96-108); Creatinine Clr Calc Pharmacy 25.6; Estimated Glomerular Filt Rate 21; Glucose Fasting 100 mg/dL (60-99); Potassium 5.3 mmol/L (3.3-5.1); Sodium 145 mmol/L (135-145); Total Protein 5.5 g/dL (6.5-8.0)
[2021-10-11 07:52] VITALS: BP 121/66; PULSE 75; RESP 18; TEMP 36.9; O2SAT 97
[2021-10-11 08:44] VITALS: BP 121/66; PULSE 75; O2SAT 97
[2021-10-11] MEDS: dexAMETHasone 2 MG TABLET PO (09:03)
[2021-10-11] MEDS: Gabapentin 300 MG CAPSULE PO ×2 (09:03→14:32)
--- NOTE | 2021-10-11 11:05 | MHC.CM.PN ---
Addendum entered by Margarita Mcduffie 10/11/21 16:01: CM RECEIVED A MESSAGE THAT THE AMBULANCE WAS EN ROUT TO GET PT. NURSE, PATIENT AND INFORMED Addendum entered by Margarita Mcduffie 10/11/21 15:16: PT WILL DC TO [facility] BETWEEN 1600 AND 1700 HOURS TODAY PENDING AVAILABILITY OF [facility] Addendum entered by Margarita Mcduffie 10/11/21 12:25: PT HAS INDICATED HIS PREFERENCE IS [facility] ARRANGED VIA [facility] FOR 1400 HOURS Addendum entered by Margarita Mcduffie 10/11/21 12:00: [facility] INDICATED THEY DID NOT HAVE A BED. REFERRALS MADE TO OTHER [facility] INDICATED SHE DID NOT HAVE A BED THERE BUT DID HAVE ONE AT [facility], THEIR SISTER FACILITY. MORALES DISCUSSED THIS WITH WHO THEN MET WITH PT. PT NOW AGREEABLE TO [facility]. MORALES THEN RECEIVED A CALL FROM JANETT AT [facility] WHO REPORTED THERE WAS A CANCELLATION AND THEY MAY HAVE AN OPEN BED FOR PT. SHE WILL CHECK AND CALL CM BACK MORALES SPOKE TO PTS (JANETT) AND INFORMED HER OF THE BED OFFERS. SHE REPORTS SHE FEELS MAY BE BETTER BECAUSE THEY DID NOT FEEL THERE WAS MUCH PT AT [facility] AND AT ONE POINT SOMEONE ACCUSED HIM OF SMOKING. SHE REPORTS SHE WILL DISCUSS THIS WITH PT AND LET HIM CHOOSE. MORALES INFORMED HER THERE WAS NO DEFINITE BED OFFER AT [facility] YET, BUT IT WOULD BE HELPFUL FOR THEM TO DECIDE ON A PREFERENCE Original Note: MORALES MET WITH PT TO DISCUSS DC PLANNING. PT REPORTS HE SPOKE TO THE PHYSICAL THERAPIST THIS MORNING AND HAS DECIDED HE WILL GO BACK TO [facility] MORALES EXPLAINED A REFERRAL WOULD NEED TO BE MADE TO ENSURE THEY STILL HAD A BED FOR HIM REFERRAL PLACED IF A BED OFFER IS RECEIVED, PT WILL DC TODAY
--- NOTE | 2021-10-11 11:49 | MHC.CLN ---
RE: CONSULT FOR POOR PO PT WITH PO INTAKE 75-100% X 3 DAYS NO NEW ORDERS AT THIS TIME CONTINUE CARE PLAN
[2021-10-11 12:00] VITALS: BP 158/71; PULSE 73; RESP 16; TEMP 36.4; O2SAT 96
--- NOTE | 2021-10-11 13:04 | P.DS_ITS ---
DS: Providers Provider Date of Service: 10/11/21 Date of admission: 10/07/21 16:13 Date of discharge: 10/11/21 Primary care physician: Jose G Dickerson MD Consults: 10/07/21 16:16 Consult to Neurology Routine Consulting Provider: [facility] Reason for consultation: falls/progressive lower leg wekaness-lumber spine stenosis/mass effect 10/07/21 16:17 Consult to Nephrology Routine Consulting Provider: Jon Ma Reason for consultation: cristiana/rhabdomylysis Has provider been notified: No 10/08/21 12:01 Consult to Infectious Diseases Stat Consulting Provider: Chantal Ocasio Reason for consultation: gram-negative bacteremia Has provider been notified: No DS: Diagnosis Discharge Diagnosis (1) Sepsis: Status: Acute (2) Gram-negative bacteremia: Status: Acute (3) CRISTIANA (acute kidney injury): Status: Acute (4) Hypertension: Status: Acute DS: Summary Hospital Course Hospital Course: 71-year-old male with past medical history of CHF, CKD, history of prostate cancer, HTN, HLD, who presents to the hospital ? With fall from [facility],? patient says that he had multiple falls in last few months- last fall was last night-? He says he try to move with the cane and try to turn and fell, did not lose his consciousness, in addition patient also has progressive lower extremity weakness from 4-5 months as per the patient,? also has chronic back pain in addition to that. ?patient said that when he pees his? a urinary burning as well as penile burning? sensation as per patient. ? Also he says appetite is poor,? has somewhat suprapubic discomfort. ?back pain-says chronic unchanged. Hospital Course Initial CK found to be 6500 upon admission; bicarb found to be 18. . . Started on a bicarb drip and Renal was consulted. Creatinine remained essentially at baseline and responded to volume. Urine culture /blood cultures x2 grew Klebsiella sensitive to Ancef. Seen by Infectious Disease who recommended completion of therapy with oral Ceftin. patient did develop some urinary retention for which chronic Saldana was placed. Voiding trial can be at the discretion of receiving facility. Patient had been on Decadron 2 mg b.i.d. for questionable paresthesias however has become easily agitated. . . Decadron will be tapered to mg daily for 1 week and then as per receiving facility. imaging including CT abdomen and pelvis failed to demonstrate any pathology related to obstruction. Time Spent with Patient Time attestation: Total time spent providing and/or coordinating discharge services: Discharge coordination time: Greater than 30 minutes Quality: Safe Use of Opioids Does Pt have an Active Cancer Diagnosis on the Problem List?: No Quality: Stroke Does the patient have a stroke diagnosis?: No Physical Exam Vital Signs: Vital Signs: Last Vital Signs Temp 97.6 F 10/11/21 12:00 Pulse 73 10/11/21 12:00 Resp 16 10/11/21 12:00 BP 158/71 H 10/11/21 12:00 Pulse Ox 96 10/11/21 12:00 O2 Del Method 10/11/21 12:00 O2 Flow Rate 0 10/09/21 15:01 FiO2 93 10/09/21 15:01 BMI result Body Mass Index 25.0 Const: Other: ill-appearing Resp: Other: clear to auscultation bilaterally no rales rhonchi or wheezes Cardio: Other: no S4; positive S1-S2; no S3 murmurs rubs or gallops GI: Other: soft nontender nondistended normoactive bowel sounds Extrem: Other: no edema bilaterally DS: Data Data Completed and Pending Labs on day of discharge: Laboratory Results - last 24 hr 10/09/21 10/11/21 10/11/21 10:18 05:26 05:26 WBC 11.7 H RBC 3.10 L Hgb 9.0 L Hct 29.8 L MCV 96.1 MCH 29.0 MCHC 30.2 L RDW 16.4 H Plt Count 150 L MPV 10.6 Immature Gran % (Auto) 1.9 H Neut % (Auto) 89.0 H Lymph % (Auto) 5.3 L Hendricks % (Auto) 3.7 Eos % (Auto) 0.0 Baso % (Auto) 0.1 Lymph # (Auto) 0.6 L Hendricks # (Auto) 0.4 Eos # (Auto) 0.0 Baso # (Auto) 0.0 Abs Immat Gran (auto) 0.22 H Absolute Neuts (auto) 10.4 H Absolute Nucleated RBC 0.000 Nucleated RBC % (auto) 0.0 Sodium 145 Potassium 5.3 H D Chloride 109 H Carbon Dioxide 26 Anion Gap 15 BUN 75 H Creatinine 2.90 H Estim Creat Clear Calc 25.6 Estimated GFR 21 Fasting Glucose 100 H Calcium 8.4 D Total Bilirubin 0.3 AST 43 H ALT 66 H Alkaline Phosphatase 54 Total Protein 5.5 L Albumin 3.3 L PTH Intact 96 H Calcium (PTH Intact) 7.7 L Discharge Plan Discharge Patient Disposition: Xfer Inpatient Rehab Fac Discharge Diagnosis: Klebsiella Bacteremia Referrals: Jose G Dickerson MD [Primary Care Provider] - 1 Week Discharge Medications: New dexamethasone [Decadron] 4 mg tablet 2 mg PO DAILY Qty: 7 0RF cefuroxime axetil 250 mg tablet 250 mg PO BID 7 Days Qty: 28 0RF Continued amlodipine 5 mg tablet 1 tab PO DAILY gabapentin 300 mg capsule 1 cap PO TID cyanocobalamin (vitamin B-12) 1,000 mcg tablet 1 tab PO DAILY lutein 20 mg Capsule 20 mg PO DAILY Rx Instructions: give with meal/snack Discontinued dexamethasone 2 mg tablet 1 tab PO Q12H Discharge Orders: Discharge Order (Routine); Ordered 10/11/21 Ordered By: Anatoliy Bullock Diet: advance to usual diet Activity on Discharge: As tolerated Stand Alone Forms: Patient Portal Discharge page Care Plan Goals: complete course of Ceftin times 14 days. Decadron taper; 2 mg daily for 1 week; then every other day for 1 week been DC Health Concerns: remove Saldana 3-5 days for voiding trial Plan of Treatment: as per receiving facility Assessment: see discharge summary
--- NOTE | 2021-10-11 13:28 | PM.PNNEP ---
Subjective Subjective Date of Service: 10/11/21 Interval history: seen and examined weak sitting out of bed Physical Exam Vital Signs: Vital Signs: Last Vital Signs Temp 97.6 F 10/11/21 12:00 Pulse 73 10/11/21 12:00 Resp 16 10/11/21 12:00 BP 158/71 H 10/11/21 12:00 Pulse Ox 96 10/11/21 12:00 O2 Del Method 10/11/21 12:00 O2 Flow Rate 0 10/09/21 15:01 FiO2 93 10/09/21 15:01 BMI result Body Mass Index 25.0 Const: General: no acute distress HEENT: Head: Yes normocephalic and Yes atraumatic Neck: Neck: Yes supple Resp: Auscultation: diminished lung sounds Cardio: Heart sounds: S1 normal heart sound present and S2 normal heart sound present GI: Palpation (GI): Soft to palpation and nontender Extrem: General: Yes edema Objective Data Labs CBC & Chem 7: 10/11/21 05:26 10/11/21 05:26 Labs: Laboratory Results - last 24 hr 10/09/21 10/11/21 10/11/21 10:18 05:26 05:26 WBC 11.7 H RBC 3.10 L Hgb 9.0 L Hct 29.8 L MCV 96.1 MCH 29.0 MCHC 30.2 L RDW 16.4 H Plt Count 150 L MPV 10.6 Immature Gran % (Auto) 1.9 H Neut % (Auto) 89.0 H Lymph % (Auto) 5.3 L Hubbard % (Auto) 3.7 Eos % (Auto) 0.0 Baso % (Auto) 0.1 Lymph # (Auto) 0.6 L Hubbard # (Auto) 0.4 Eos # (Auto) 0.0 Baso # (Auto) 0.0 Abs Immat Gran (auto) 0.22 H Absolute Neuts (auto) 10.4 H Absolute Nucleated RBC 0.000 Nucleated RBC % (auto) 0.0 Sodium 145 Potassium 5.3 H D Chloride 109 H Carbon Dioxide 26 Anion Gap 15 BUN 75 H Creatinine 2.90 H Estim Creat Clear Calc 25.6 Estimated GFR 21 Fasting Glucose 100 H Calcium 8.4 D Total Bilirubin 0.3 AST 43 H ALT 66 H Alkaline Phosphatase 54 Total Protein 5.5 L Albumin 3.3 L PTH Intact 96 H Calcium (PTH Intact) 7.7 L Microbiology Microbiology Results: Microbiology 10/07/21 13:30 Blood - Venous Blood Culture - Final Klebsiella pneumoniae 10/07/21 12:47 Blood - Venous Blood Culture - Final Klebsiella pneumoniae 10/07/21 00:00 Urine Catheterized - Straight Catheter Urine Culture - Final Klebsiella pneumoniae Procedures Date of Service Date of Service: 10/11/21 Assessment & Plan Assessment and plan (1) CRISTIANA (acute kidney injury): Status: Acute (2) Hyperkalemia: Status: Acute (3) CKD (chronic kidney disease) stage 3, GFR 30-59 ml/min: Status: Acute Plan Scr up CRISTIANA due to acute tubular injury in the setting of GNR bacteremia component of heme pigment nephrotoxicity CT scan abdomen negative for obstruction known CKD baseline Scr ~ 1.5-2 mg/dl REC sodium zirconium as needed follow kidney function and electrolytes Time Spent With Patient Time: Total time spent is greater than 50% in coordination of care (as documented) at patient's floor/unit and/or counseling patient: Progress Note: Quality Stroke Does the patient have a stroke diagnosis?: No
[2021-10-11 14:47] LABS: COVID-19 Test Negative (Negative)
[2021-10-11 16:00] VITALS: BP 141/75; PULSE 74; RESP 17; TEMP 36.3; O2SAT 94
--- NOTE | 2021-10-11 16:12 | PC.NURSE ---
Patient complained of difficulty urinating. Incontinent moderate amts urine in brief and voiding in BR. Bladder scanned for PVR 297. Dr. Bullock ordered edwards insertion. 18F edwards placed and draining yellow urine.
== END 2021-10-11 16:30 | DRG 871 ==
LOC: HO.ED 15:09 → HO.EDOVER 16:20 → HO.S3 10-08 02:45
PROVIDERS: Internal Medicine Hypertension Specialist; Admitting Provider Internal Medicine; Emergency Provider Student in an Organized Health Care Education/Training Program; PCP Internal Medicine Medical Oncology; Visit Provider Hospitalist
DX: A41.9 Sepsis, unspecified organism (principal); N17.0 Acute kidney failure with tubular necrosis; M62.82 Rhabdomyolysis; N39.0 Urinary tract infection, site not specified; I13.0 Hypertensive heart and chronic kidney disease with heart failure and stage 1 through stage 4 chronic kidney disease, or unspecified chronic kidney disease; E87.2 Acidosis; I50.9 Heart failure, unspecified; R65.20 Severe sepsis without septic shock; E78.5 Hyperlipidemia, unspecified; D69.6 Thrombocytopenia, unspecified; N18.30 Chronic kidney disease, stage 3 unspecified; E83.51 Hypocalcemia; B96.1 Klebsiella pneumoniae [K. pneumoniae] as the cause of diseases classified elsewhere; Z20.822 Contact with and (suspected) exposure to COVID-19; Z85.46 Personal history of malignant neoplasm of prostate; M48.061 Spinal stenosis, lumbar region without neurogenic claudication; F17.210 Nicotine dependence, cigarettes, uncomplicated; Z87.440 Personal history of urinary (tract) infections; Z71.6 Tobacco abuse counseling; Z79.899 Other long term (current) drug therapy
CPT/HCPCS: 36415; 70450; 71045; 72125; 74176; 76882; 80048; 80053; 81001; 81003; 82550; 83605; 83880; 83970; 85025; 85027; 85610; 87040; 87077; 87086; 87088; 87186; 87205; 87635; 93005; 96361; 96374; 97116; 97162; 97530; 99285; C1758; J0696; J2543; J8540

== ENCOUNTER 2021-10-26 09:08 | Outpatient (REF) | payer MEDICARE, SELFPAY ==
[2021-10-26 10:40] LABS: Prostate Specific Antigen 2.78 ng/mL (<0.05-4.0)
[2021-10-31 11:51] LABS: Testosterone, Total 212 ng/dL (250-1100)
== END 2021-10-26 09:09 | disposition home or self-care (01) ==
LOC: HO.LAB 09:08
PROVIDERS: PCP Internal Medicine Medical Oncology; Visit Provider Urology
DX: C61 Malignant neoplasm of prostate (principal); Z12.5 Encounter for screening for malignant neoplasm of prostate
CPT/HCPCS: 36415; 84153; 84403

== ENCOUNTER → 2021-11-05 08:36 | Outpatient (BNVA) | payer MEDICARE, SELFPAY | PROVIDERS: PCP Internal Medicine Medical Oncology; Visit Provider Urology | DX: C61 Malignant neoplasm of prostate (principal); N30.40 Irradiation cystitis without hematuria; N40.1 Benign prostatic hyperplasia with lower urinary tract symptoms; R35.1 Nocturia; R39.15 Urgency of urination; R35.0 Frequency of micturition | CPT/HCPCS: Q3014 ==

== ENCOUNTER 2021-11-12 11:28 | Inpatient (IN) | payer MEDICARE, SELFPAY ==
--- NOTE | 2021-11-12 | ECG_ITS ---
Test Reason : HYPERKALEMIA Blood Pressure : / mmHG Vent. Rate : 106 BPM Atrial Rate : 106 BPM P-R Int : 150 ms QRS Dur : 074 ms QT Int : 318 ms P-R-T Axes : 036 061 036 degrees QTc Int : 422 ms Sinus tachycardia Otherwise normal ECG When compared with ECG of 12-NOV-2021 16:19, No significant change was found Referred By: Owen Chiang Electronically Signed By:BRIAN QUIÑONES MD
--- NOTE | ~2021-11-12 | CT_ITS ---
EXAMINATION: CT ABDOMEN AND PELVIS WITHOUT CONTRAST CLINICAL INFORMATION: Acute kidney injury COMPARISON: CT abdomen and pelvis 10/08/2021 TECHNIQUE: Multidetector volumetric imaging was performed from the superior aspect of the liver through the pubic symphysis. Sagittal and coronal reformatted images were obtained on the technologist's workstation. This CT examination was performed using dose optimization techniques as appropriate, variously including the following: *Automated exposure control *Adjustment of mA and/or kV according to patient size (this includes techniques or standardized protocols for targeted exams where dose is matched to indication/reason for exam; i.e. extremities or head) *Use of iterative reconstruction technique DLP: 529 mGy-cm FINDINGS: LUNG BASES: Minimal right basilar pleural thickening. Lung bases otherwise clear. LIVER, GALLBLADDER, AND BILIARY TREE: The liver is normal in size, shape, and attenuation. No focal hepatic lesion or biliary ductal dilatation is present. The gallbladder is unremarkable with no evidence of radiopaque gallstones, gallbladder wall thickening, or obvious pericholecystic inflammatory changes. PANCREAS: Unremarkable. SPLEEN: Unremarkable. ADRENAL GLANDS: Unremarkable. KIDNEYS AND URETERS: No hydronephrosis. Extrarenal pelvis on the left is noted. Unchanged small low-density lateral renal lesions compatible with cysts, largest exophytic from the posterior right mid to lower pole measuring approximately 4.3 cm in size. Couple smaller lesions in the lateral midpole cortex of the right kidney are too small to reliably characterize. No radiodense urinary tract calculi. Mild symmetric lateral perirenal fascial stranding. BLADDER: Mildly diffusely thick-walled, unchanged. GASTROINTESTINAL TRACT: The small and large bowel are unremarkable. The appendix is unremarkable. No ascites or free air. ABDOMINAL WALL: No significant hernia is appreciated. LYMPH NODES: No lymphadenopathy. VASCULAR: Extensive vascular calcifications. No abdominal aortic aneurysm. PELVIC VISCERA: Normal prostate gland is not seen. There is a approximately 4.4 x 1.7 x 3.2 cm low-density fluid collection in the expected position of the prostate gland, which was a present previously. Previously seen calcification and metallic clip or brachytherapy seed are no longer seen at this location. There is a tract of fluid in the ischiorectal and ischioanal fossa extending inferiorly and posteriorly which contains some linear calcific material on series 3-93, not seen on prior. 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 No articular surface collapse or fragmentation. Unchanged sclerotic lesion of bone at T12. No new osseous lesion. No acute fracture. Similar appearance of multilevel degenerative disc disease most advanced the lumbar spine. CT/CT abdomen pelvis wo con IMPRESSION: 1. No hydronephrosis. 2. No acute intra-abdominal process. 3. Persistent cystic change or fluid collection at the expected location of the prostate gland that measures approximately 4.4 x 1.7 x 3.2 cm in size with a tract or a couple of suspected sinus tracts coursing posteriorly and inferiorly in the left ischiorectal and ischoanal fossa at the inferior margin of the [id number]. Correlate clinically with concern for prostate abscess as well as with the any evidence of draining wound/tract in the region of the left gluteal cleft. 4. Unchanged sclerotic lesion at T12. Fleischner guidelines were followed.
[2021-11-12 11:45] VITALS: BP 107/56; BP 108/64; PULSE 104; RESP 16; TEMP 36.6; O2SAT 96; O2SAT 99; BMI 21.9
--- NOTE | 2021-11-12 12:24 | ED_ITS ---
HPI - General Adult General Chief complaint: Dizziness Stated complaint: DIZZY,LEG WEAKNESS Time Seen by Provider: 11/12/21 12:24 Source: patient Mode of arrival: EMS Limitations: no limitations History of Present Illness HPI narrative: For the past few days he has had increased weakness, patient with known back is sues and MRI and seen by a back surgeon. The patient has been lying down losing muscle mass in his legs. patient also noticed dizziness with standing. Patient states he had fever yesterday, he felt hot. In addition patient has no appetite Onset (ago): day(s) Severity: severe Relieving factors: none Associated symptoms: fever/chills, malaise and weakness Related Data Home Medications Medication Instructions Recorded Confirmed lutein 20 mg capsule 20 mg PO DAILY 08/22/21 11/12/21 amlodipine 5 mg tablet 1 tab PO DAILY 10/07/21 11/12/21 Previous Rx's Medication Instructions Recorded finasteride 5 mg tablet 5 mg PO DAILY 90 days #90 tabs 11/05/21 terazosin 5 mg capsule 5 mg PO BEDTIME 30 days #30 caps 11/05/21 Allergies Allergy/AdvReac Type Severity Reaction Status Date / Time No Known Allergies Allergy Verified 11/05/21 07:46 [No Known Allergies*] Review of Systems Constitutional: Constitutional: Reports no additional constitutional complain ts Eyes: Eyes: Reports no additional eye complaints ENT: Denies dizziness Cardiovascular: Cardiovascular: Reports no additional cardiovascular complaints Respiratory: Respiratory: Reports as per HPI Gastrointestinal: Gastrointestinal: Reports no additional gastrointestinal complaints Musculoskeletal: Musculoskeletal: Reports no additional musculoskeletal complaints Integumentary/Breasts: Skin/Breast: Denies rash Neurologic: Reports system reviewed and no additional complaints, except as documented, Denies dizziness and Denies Sensory deficit (Neuro) Psychiatric: Psychiatric: Denies anxiety [facility] Past Medical History Medical History Falls Hematuria Hypercholesteremia Hypertension Kidney disease Macular degeneration Prostate cancer Prostate cancer Stenosis of lumbosacral spine Urgency incontinence Urgency incontinence Surgical History History of back surgery History of penile implant History of prostate surgery Family History Family History Other No family history of coronary artery disease Social History Social History Household Members: Spouse Housing: House Do you presently have visiting nurse or other home services: No Alcohol intake: former Patient Tobacco Use Status: Current everyday Tobacco user Smoking Start Date: 06/18/61 Tobacco use type: Cigarette Cigarette Packs Per Day: 0.5 Cigarettes Per Day: 10.0 Smoked in Last 30 Days: Yes e-Cigarette/Vaping Use: Never Used Second Hand Smoke Exposure: No Use of substances other than those prescribed or required for medical reasons: No Advance Directives: Yes Advance Directives on File: Yes Advance Directives Date on File: 02/19/21 service: Yes Current occupational status: retired Physical Exam ED Vital Signs: Vital Signs - 24 hr 11/12/21 11:45 11/12/21 14:01 11/12/21 15:08 Temperature 97.8 F 98.2 F Pulse Rate 104 H 99 104 H Respiratory Rate 16 17 17 Blood Pressure 107/56 L 112/65 120/63 Pulse Oximetry 99 98 99 Oxygen Delivery Method Room Air Room Air Room Air 11/12/21 16:15 Temperature 98.7 F Pulse Rate 108 H Respiratory Rate 23 H Blood Pressure 118/68 Pulse Oximetry 99 Oxygen Delivery Method Room Air BMI result Body Mass Index 21.9 Const Other: Male looking older than stated age Nutritional Appearance: average body habitus Orientation/consciousness: oriented to person and patient oriented x3 Limitations: no limitations HENMT Other: very dry oral mucosa Head: Yes normal to inspection Ears: external ears normal General nose exam: Normal external nose present Throat: Yes posterior oropharynx normal Eyes General: appearance normal, both eyes and all related structures Neck Neck: Yes normal visual inspection Chest Chest palpation & inspection: normal inspection of the chest Resp Auscultation: clear to auscultation bilaterally Cardio Jugular venous distension: no JVD Rate: regular rate Rhythm: regular rhythm Heart sounds: S1 normal heart sound present and S2 normal heart sound present GI Inspection: Yes normal to inspection Palpation (GI): Soft to palpation, nontender and No hepatosplenomegaly present Auscultation: normal bowel sounds General: Yes no CVA tenderness Back/Spine/Pelvis Back: no CVA tenderness Skin General skin exam: no rashes or lesions noted Neuro General: oriented to person and patient oriented x3 Cranial nerves: Yes CN's II-XII intact bilaterally Motor exam (neuro): 5/5 motor strength present throughout Sensory Exam: No Sensory deficit (Neuro) Extrem General: Yes normal to inspection Psych Appearance: grossly normal Course Reevaluation(s) Reevaluation #1: patient with renal failure similar to a few months ago, repeated chem 7 to recheck his potassium and his cpk. Discussed with dr. Valdes for admission Time: 17:13 Medical Decision Making Lab Data Result diagrams: 11/14/21 06:43 11/14/21 06:43 Labs: Lab Results 11/12/21 11/12/21 11/12/21 Range/Units 12:52 12:52 12:52 WBC 9.3 (4.8-10.8) X10*3/uL RBC 3.79 L D (4.60-5.80) X10*6/uL Hgb 11.0 L D (14.0-18.0) g/dl Hct 36.3 L D (42.0-52.0) % MCV 95.8 (80.0-98.0) fL MCH 29.0 (27.0-33.0) pg MCHC 30.3 L (31.0-36.0) g/dl RDW 15.4 (11.0-16.0) % Plt Count 507 H D (160-400) X10*3/uL MPV 9.0 L (9.4-12.4) fL Immature Gran % (Auto) 1.4 H (0.0-0.4) % Neut % (Auto) 81.4 H (45-73) % Lymph % (Auto) 9.1 L (20-40) % Nelson % (Auto) 7.2 (2-11) % Eos % (Auto) 0.7 (0-4) % Baso % (Auto) 0.2 (0-2) % Lymph # (Auto) 0.9 L (1.2-4.9) X10*3/uL Nelson # (Auto) 0.7 (0.1-1.2) X10*3/uL Eos # (Auto) 0.1 (0.0-0.4) X10*3/uL Baso # (Auto) 0.0 (0.0-0.2) X10*3/uL Abs Immat Gran (auto) 0.13 H (0.00-0.03) X10*3/uL Absolute Neuts (auto) 7.6 (2.0-8.3) x10*3/uL Absolute Nucleated RBC 0.000 (0.0-0.012) X10*3/uL Nucleated RBC % (auto) 0.0 (0.0-0.2) /100WBC Sodium 135 (135-145) mmol/L Potassium 5.6 H (3.3-5.1) mmol/L Chloride 112 H (96-108) mmol/L Carbon Dioxide 12 L (22-29) mmol/L Anion Gap 17 (12-20) BUN 70 H (9-16) mg/dL Creatinine 2.99 H (0.5-1.4) mg/dL Estim Creat Clear Calc 24.1 Estimated GFR 21 Random Glucose 105 D (60-115) mg/dL Calcium 8.6 (8.4-10.2) mg/dL Total Creatine Kinase (38-174) U/L Urine Color Urine Appearance Urine pH (5.0-8.0) Ur Specific [place] (1.005-1.025) Urine Protein (NEG-TRACE) MG/DL Urine Glucose (UA) (NEG) MG/DL Urine Ketones (NEG) MG/DL Urine Blood (NEG) Urine Nitrite (NEG) Ur Leukocyte Esterase (NEG) Urine RBC (0) /HPF Urine WBC (0-4) /HPF Ur Squamous Epith Cells /LPF Urine Bacteria /LPF COVID-19 (SHARAD) Negative (Negative) COVID-19 Clin Com See Note 11/12/21 11/12/21 Range/Units 15:12 16:31 WBC (4.8-10.8) X10*3/uL RBC (4.60-5.80) X10*6/uL Hgb (14.0-18.0) g/dl Hct (42.0-52.0) % MCV (80.0-98.0) fL MCH (27.0-33.0) pg MCHC (31.0-36.0) g/dl RDW (11.0-16.0) % Plt Count (160-400) X10*3/uL MPV (9.4-12.4) fL Immature Gran % (Auto) (0.0-0.4) % Neut % (Auto) (45-73) % Lymph % (Auto) (20-40) % Nelson % (Auto) (2-11) % Eos % (Auto) (0-4) % Baso % (Auto) (0-2) % Lymph # (Auto) (1.2-4.9) X10*3/uL Nelson # (Auto) (0.1-1.2) X10*3/uL Eos # (Auto) (0.0-0.4) X10*3/uL Baso # (Auto) (0.0-0.2) X10*3/uL Abs Immat Gran (auto) (0.00-0.03) X10*3/uL Absolute Neuts (auto) (2.0-8.3) x10*3/uL Absolute Nucleated RBC (0.0-0.012) X10*3/uL Nucleated RBC % (auto) (0.0-0.2) /100WBC Sodium 138 (135-145) mmol/L Potassium 6.1 H* (3.3-5.1) mmol/L Chloride 115 H (96-108) mmol/L Carbon Dioxide 13 L (22-29) mmol/L Anion Gap 16 (12-20) BUN 67 H (9-16) mg/dL Creatinine 2.70 H (0.5-1.4) mg/dL Estim Creat Clear Calc 26.7 Estimated GFR 23 Random Glucose 108 (60-115) mg/dL Calcium 8.6 (8.4-10.2) mg/dL Total Creatine Kinase 24 L D (38-174) U/L Urine Color YELLOW Urine Appearance CLOUDY Urine pH 5.5 (5.0-8.0) Ur Specific [place] 1.025 (1.005-1.025) Urine Protein 2+ H (NEG-TRACE) MG/DL Urine Glucose (UA) NEG (NEG) MG/DL Urine Ketones NEG (NEG) MG/DL Urine Blood 1+ H (NEG) Urine Nitrite NEG (NEG) Ur Leukocyte Esterase 2+ H (NEG) Urine RBC 15-29 H (0) /HPF Urine WBC TNTC H (0-4) /HPF Ur Squamous Epith Cells NONE /LPF Urine Bacteria 1+ /LPF COVID-19 (SHARAD) (Negative) COVID-19 Clin Com Discharge Plan Discharge Clinical Impression: Acute renal failure, Acute dehydration Patient Disposition: Admitted As Inpatient
[2021-11-12] MEDS: 0.9 % Sodium Chloride 500 ML 250 ML IVCONT ×2 (12:54→15:08)
[2021-11-12 12:56] LABS: MANUAL DIFF FLAG NO
[2021-11-12 12:58] LABS: Basophils Percent Auto 0.2 % (0-2); Eosinophils Absolute Auto 0.1 X10*3/uL (0.0-0.4); Eosinophils Percent Auto 0.7 % (0-4); Hematocrit 36.3 % (42.0-52.0); Imm Gran Abs Auto 0.13 X10*3/uL (0.00-0.03); Imm Gran Pct Auto 1.4 % (0.0-0.4); Lymphocytes Absolute Auto 0.9 X10*3/uL (1.2-4.9); Lymphocytes Percent Auto 9.1 % (20-40); Mean Corpuscular HGB Conc 30.3 g/dl (31.0-36.0); Mean Corpuscular Volume 95.8 fL (80.0-98.0); Monocytes Absolute Auto 0.7 X10*3/uL (0.1-1.2); Monocytes Percent Auto 7.2 % (2-11); Neutrophils Absolute Auto 7.6 x10*3/uL (2.0-8.3); Neutrophils Percent Auto 81.4 % (45-73); Platelet Count 507 X10*3/uL (160-400); Red Blood Count 3.79 X10*6/uL (4.60-5.80); Red Cell Distribution Width 15.4 % (11.0-16.0); White Blood Count 9.3 X10*3/uL (4.8-10.8)
[2021-11-12 13:14] LABS: Anion Gap 17 (12-20); Blood Urea Nitrogen 70 mg/dL (9-16); Calcium 8.6 mg/dL (8.4-10.2); Carbon Dioxide 12 mmol/L (22-29); Chloride 112 mmol/L (96-108); Creatinine Clr Calc Pharmacy 24.1; Estimated Glomerular Filt Rate 21; Glucose Random 105 mg/dL (60-115); Potassium 5.6 mmol/L (3.3-5.1); Sodium 135 mmol/L (135-145)
[2021-11-12 13:15] LABS: COVID-19 Test Negative (Negative)
[2021-11-12 14:01] VITALS: BP 112/65; PULSE 99; RESP 17; TEMP 36.8; O2SAT 98
--- NOTE | 2021-11-12 14:56 | ECG_ITS ---
Test Reason : LEG PAIN Blood Pressure : / mmHG Vent. Rate : 107 BPM Atrial Rate : 107 BPM P-R Int : 144 ms QRS Dur : 076 ms QT Int : 330 ms P-R-T Axes : 044 067 035 degrees QTc Int : 440 ms Sinus tachycardia Otherwise normal ECG When compared with ECG of 07-OCT-2021 14:05, No significant change was found Referred By: Albert Diallo Electronically Signed By:BRIAN QUIÑONES MD
[2021-11-12 15:08] VITALS: BP 120/63; PULSE 104; RESP 17; O2SAT 99
[2021-11-12 15:27] LABS: Appearance Urine CLOUDY; Color Urine YELLOW; Glucose Urine UA NEG (NEG); Leukocyte Esterase Urine 2+ (NEG); Nitrite Urine NEG (NEG); PH 5.5 (5.0-8.0); Specific Gravity - Urine 1.025 (1.005-1.025); UACC Culture Trigger YES; Urine Blood 1+ (NEG); Urine Ketones NEG (NEG); Urine Protein 2+ MG/DL (NEG-TRACE)
[2021-11-12 16:04] LABS: Bacteria Urine 1+ /LPF; WBC Urine TNTC /HPF (0-4)
[2021-11-12 16:15] VITALS: BP 118/68; PULSE 108; RESP 23; TEMP 37.1; O2SAT 99
[2021-11-12 17:15] LABS: Anion Gap 16 (12-20); Blood Urea Nitrogen 67 mg/dL (9-16); Calcium 8.6 mg/dL (8.4-10.2); Carbon Dioxide 13 mmol/L (22-29); Chloride 115 mmol/L (96-108); Creatinine Clr Calc Pharmacy 26.7; Estimated Glomerular Filt Rate 23; Glucose Random 108 mg/dL (60-115); Potassium 6.1 mmol/L (3.3-5.1); Sodium 138 mmol/L (135-145)
--- NOTE | 2021-11-12 17:49 | PHA.MEDREC ---
Pharmacy Consult ? Medication Reconciliation Pharmacy has completed the medication reconciliation.
--- NOTE | 2021-11-12 17:56 | PM.IMHP ---
History of Present Illness Date of Service: 11/12/21 Chief Complaint: weakness This is a 71-year-old male with past medical history of CHF, CKD, history of prostate cancer, HTN, HLD, who presents to the hospital?With complaints of progressive weakness. Patient reports that he has been feeling increasingly weak in the setting of chronic back pain and today he had a fall walking from his room to the bathroom which made him come to the hospital. Patient reports that he has chronic back issues which has caused him to be weaker and weaker every day, For the past several weeks.he also says that as a result of this weakness he has become more bed-bound and has difficulty ambulating. He reports that he has had res oral intake and poor appetite for the past 1 week. He also has urinary urgency frequency, as well as some dysuria for the past 4 days. He had chills last night. He reports that he was told his prostate cancer might be returning and his urologist started him on 2 new medications about 2 weeks ago which seemed to have worsened his weakness. He denies any bowel incontinence. has chronic urgency incontinent that has not worsened. Reports chronic numbness and tingling in his legs as a result of his back issues. He reports no chest pain, no abdominal pain, no nausea or vomiting, had diarrhea several days ago treated with Imodium that has now resolved. denies any lower extremity edema. No shortness of breath or cough. No headache or change in vision. On his arrival to the ED patient noted to have a temperature of 97.8 degrees, heart rate of 104, blood pressure 107/56 satting 99% on room air Lab are significant for WBC count 9.3, hemoglobin of 11, hematocrit 36.3, potassium of 5.6, chloride of 112, creatinine of 2.99 with a baseline around 2 from October, BUN of 70, UA is positive for leukocyte Estrace as well as WBC patient will be admitted for further management Review of Systems Review of Systems: Yes all other systems are reviewed and are negative [facility] Medical History (Updated 11/12/21 @ 18:10 by Owen Chiang MD) Falls Hematuria Hypercholesteremia Hypertension Kidney disease Macular degeneration Prostate cancer Prostate cancer Stenosis of lumbosacral spine Urgency incontinence Urgency incontinence Family History Other No family history of coronary artery disease Surgical History History of back surgery History of penile implant History of prostate surgery Social History Household Members: Spouse Housing: House Do you presently have visiting nurse or other home services: No Alcohol intake: former Patient Tobacco Use Status: Current everyday Tobacco user Smoking Start Date: 06/18/61 Tobacco use type: Cigarette Cigarette Packs Per Day: 0.5 Cigarettes Per Day: 10.0 Smoked in Last 30 Days: Yes e-Cigarette/Vaping Use: Never Used Second Hand Smoke Exposure: No Use of substances other than those prescribed or required for medical reasons: No Advance Directives: Yes Advance Directives on File: Yes Advance Directives Date on File: 02/19/21 service: Yes Current occupational status: retired [employer] Allergies Allergy/AdvReac Type Severity Reaction Status Date / Time No Known Allergies Allergy Verified 11/05/21 07:46 [No Known Allergies*] Active Medications: Current Medications Acetaminophen (Acetaminophen 325 Mg Tablet) 650 mg PO Q6H PRN PRN Reason: Pain, Mild (Pain Scale 1-3) Albuterol Sulfate (Albuterol Sulfate (0.083%) 2.5 Mg/3 Ml Vial.Neb) 2.5 mg INHALE ONCE ONE Stop: 11/12/21 17:46 Dextrose (Dextrose 50 % 25 Gm/50 Ml Syringe) 12.5 gm IVPUSH ONCE ONE Stop: 11/12/21 17:46 Docusate Sodium (Docusate Sodium 100 Mg Capsule) 100 mg PO DAILY PRN PRN Reason: Constipation Heparin Sodium (Porcine) (Heparin Sodium,Porcine 5,000 Unit/Ml Vial) 5,000 unit SUBCUT Q12H [facility] Ceftriaxone Sodium 1 gm/ (Sodium Chloride) 50 mls @ 100 mls/hr IV Q24H [facility] Lactated Ringer's (Lr) 1,000 mls @ 100 mls/hr IVCONT .Q10H [facility] Insulin Human Regular (Insulin Regular, Human 100 Unit/Ml 3 Ml Vial) 8 unit 0.1 unit/kg (8 unit) IVPUSH ONCE ONE Stop: 11/12/21 17:46 Ondansetron HCl (Ondansetron Hcl 4 Mg/2 Ml Vial) 4 mg IVPUSH Q8H PRN PRN Reason: Nausea and Vomiting Pharmacy Consult (Consult Rx Perform Med Rec) 1 each MISCELLANE ONCE PRN PRN Reason: Consult order Sodium Chloride (0.9 % Sodium Chloride Flush 3 Ml Syringe) 3 ml IVFLUSH QSHIFT [facility] Sodium Zirconium Cyclosilicate (Sodium Zirconium Cyclosilicate 10 Gm Powd.Pack) 10 gm PO ONCE ONE Stop: 11/12/21 17:46 Home Medications Medication Instructions Recorded Confirmed Last Taken Type lutein 20 mg capsule 20 mg PO DAILY 08/22/21 11/12/21 11/12/21 History amlodipine 5 mg tablet 1 tab PO DAILY 10/07/21 11/12/21 11/12/21 History Physical Exam Vital Signs and Narrative: Vital Signs: Last Vital Signs Temp 98.7 F 11/12/21 16:15 Pulse 108 H 11/12/21 16:15 Resp 23 H 11/12/21 16:15 BP 118/68 11/12/21 16:15 Pulse Ox 99 11/12/21 16:15 O2 Del Method 11/12/21 16:15 BMI result Body Mass Index 21.9 Const: General: cooperative and no acute distress Orientation/consciousness: patient oriented x3 Eyes: General: appearance normal, both eyes and all related structures Resp: Effort & Inspection: normal respiratory effort Auscultation: clear to auscultation bilaterally Cardio: Rate: regular rate Rhythm: regular rhythm GI: Other: abdomen soft, nontender, no guarding or rebound Palpation (GI): Soft to palpation Auscultation: normal bowel sounds Skin: General skin exam: no rashes or lesions noted Neuro: General: patient oriented x3 Cognition (Neuro): normal cognition Extrem: General: Yes normal to inspection and Yes no pedal edema Results Labs CBC and Chem 7: 11/12/21 12:52 11/12/21 16:31 Labs: Laboratory Results - last 24 hr 11/12/21 11/12/21 11/12/21 12:52 12:52 12:52 MCV 95.8 MCH 29.0 MCHC 30.3 L RDW 15.4 Plt Count 507 H D MPV 9.0 L Immature Gran % (Auto) 1.4 H Neut % (Auto) 81.4 H Lymph % (Auto) 9.1 L Bee % (Auto) 7.2 Eos % (Auto) 0.7 Baso % (Auto) 0.2 Lymph # (Auto) 0.9 L Bee # (Auto) 0.7 Eos # (Auto) 0.1 Baso # (Auto) 0.0 Abs Immat Gran (auto) 0.13 H Absolute Neuts (auto) 7.6 Absolute Nucleated RBC 0.000 Nucleated RBC % (auto) 0.0 Anion Gap 17 Estim Creat Clear Calc 24.1 Estimated GFR 21 Random Glucose 105 D Calcium 8.6 Total Creatine Kinase Urine Color Urine Appearance Urine pH Ur Specific Dorothy Urine Protein Urine Glucose (UA) Urine Ketones Urine Blood Urine Nitrite Ur Leukocyte Esterase Urine RBC Urine WBC Ur Squamous Epith Cells Urine Bacteria COVID-19 (SHARAD) Negative COVID-19 Clin Com See Note 11/12/21 11/12/21 15:12 16:31 MCV MCH MCHC RDW Plt Count MPV Immature Gran % (Auto) Neut % (Auto) Lymph % (Auto) Bee % (Auto) Eos % (Auto) Baso % (Auto) Lymph # (Auto) Bee # (Auto) Eos # (Auto) Baso # (Auto) Abs Immat Gran (auto) Absolute Neuts (auto) Absolute Nucleated RBC Nucleated RBC % (auto) Anion Gap 16 Estim Creat Clear Calc 26.7 Estimated GFR 23 Random Glucose 108 Calcium 8.6 Total Creatine Kinase 24 L D Urine Color YELLOW Urine Appearance CLOUDY Urine pH 5.5 Ur Specific Dorothy 1.025 Urine Protein 2+ H Urine Glucose (UA) NEG Urine Ketones NEG Urine Blood 1+ H Urine Nitrite NEG Ur Leukocyte Esterase 2+ H Urine RBC 15-29 H Urine WBC TNTC H Ur Squamous Epith Cells NONE Urine Bacteria 1+ COVID-19 (SHARAD) COVID-19 Clin Com Assessment and Plan (1) Acute kidney injury superimposed on CKD: Status: Acute (2) Hyperkalemia: Status: Acute (3) Acute UTI: Status: Acute Plan 71-year-old male with past medical history who presents to the hospital with worsening weakness found to have acute UTI, CRISTIANA CKD and hyperkalemia # CRISTIANA on CKD - likely multifactorial in the setting of low oral intake /dehydration as well as UTI, possible postobstructive uropathy given the history of prostate cancer - abdominal pelvic CT ordered to rule out any hydronephrosis or obstruction - will start on IV fluids - follow BMP - baseline now appears to be around 2 - nephrology consulted - will hold nephrotoxic meds # hyperkalemia - secondary to CRISTIANA - no EKG changes - will give Lokelma - IV fluids - follow BMP # UTI - positive UA - symptomatic - afebrile, no leukocytosis - will treat based on previous sensitivities - follow blood and urine cultures # Prostate cancer - hold medications in the setting of CRISTIANA DVT prophylaxis: Heparin subQ given the acute CRISTIANA, UTI as well as hyperkalemia patient will require admission of minimum 2 night hospital stay for further management and monitoring Quality Stroke Does the patient have a stroke diagnosis?: No VTE Prior VTE?: No VTE Risk Level:: Medical - moderate - high VTE Device Contraindication: Treatment Not Indicated VTE Drug Contraindication: N/A - Med Ordered
[2021-11-12 18:13] VITALS: PULSE 111; RESP 18; O2SAT 96
[2021-11-12] MEDS: Albuterol Sulfate (0.083%) 2.5 MG/3 ML VIAL.NEB INHALE (18:13)
[2021-11-12] MEDS: Dextrose 50 % 25 GM/50 ML SYRINGE IVPUSH (18:24)
[2021-11-12] MEDS: Sodium Zirconium Cyclosilicate 10 GM POWD.PACK PO (18:25)
[2021-11-12] MEDS: Insulin Regular, Human 100 UNIT/ML 3 ML VIAL 8 UNIT IVPUSH (18:25)
[2021-11-12 18:31] VITALS: BP 115/64; PULSE 119; RESP 21; O2SAT 99
[2021-11-12] MEDS: Lactated Ringers 1,000 ML 100 ML IVCONT (18:45)
[2021-11-12 18:53] LABS: Glucose, Whole Blood 135 mg/dL (60-115)
[2021-11-12 20:14] LABS: Lactic Acid 1.8 mmol/L (0.5-2.0)
[2021-11-12] MEDS: Heparin Sodium,Porcine 5,000 UNIT/ML VIAL 5000 UNIT SUBCUT (21:36)
[2021-11-12] MEDS: cefTRIAXone sodium 1 GM in 0.9 % Sodium Chloride 50 ML IV (21:37)
[2021-11-13] VITALS (8 sets, daily range): BP systolic 98–118; BP diastolic 59–64; PULSE 93–109; RESP 12–21; TEMP 36.5; O2SAT 97–99; BMI 22.6
[2021-11-13 04:14] LABS: Basophils Percent Auto 0.5 % (0-2); Eosinophils Absolute Auto 0.1 X10*3/uL (0.0-0.4); Eosinophils Percent Auto 1.4 % (0-4); Hemoglobin 9.7 g/dl (14.0-18.0); Imm Gran Abs Auto 0.11 X10*3/uL (0.00-0.03); Imm Gran Pct Auto 1.9 % (0.0-0.4); Lymphocytes Absolute Auto 1.1 X10*3/uL (1.2-4.9); Lymphocytes Percent Auto 18.7 % (20-40); MANUAL DIFF FLAG NO; Mean Corpuscular HGB Conc 30.3 g/dl (31.0-36.0); Mean Corpuscular Hemoglobin 28.9 pg (27.0-33.0); Mean Corpuscular Volume 95.2 fL (80.0-98.0); Monocytes Absolute Auto 0.7 X10*3/uL (0.1-1.2); Monocytes Percent Auto 11.9 % (2-11); Neutrophils Absolute Auto 3.9 x10*3/uL (2.0-8.3); Neutrophils Percent Auto 65.6 % (45-73); Platelet Count 421 X10*3/uL (160-400); Red Blood Count 3.36 X10*6/uL (4.60-5.80); Red Cell Distribution Width 15.5 % (11.0-16.0); White Blood Count 5.9 X10*3/uL (4.8-10.8)
[2021-11-13 04:32] LABS: Anion Gap 14 (12-20); Blood Urea Nitrogen 57 mg/dL (9-16); Calcium 8.3 mg/dL (8.4-10.2); Carbon Dioxide 13 mmol/L (22-29); Chloride 115 mmol/L (96-108); Creatinine Clr Calc Pharmacy 33.9; Estimated Glomerular Filt Rate 31; Glucose Random 100 mg/dL (60-115); Potassium 4.9 mmol/L (3.3-5.1); Sodium 137 mmol/L (135-145)
[2021-11-13] MEDS: Lactated Ringers 1,000 ML 100 ML IVCONT (05:15)
--- NOTE | 2021-11-13 07:00 | PC.NURSE ---
Report received from LUIS Dunn. Patient reports feeling the same this morning, weak and fatigued. Patient is alert and oriented. Respirations regular and even. Skin PWD. Patient aware of plan of care. Heparin administered as per order. Will continue to monitor.
[2021-11-13] MEDS: Heparin Sodium,Porcine 5,000 UNIT/ML VIAL 5000 UNIT SUBCUT ×2 (07:20→18:43)
[2021-11-13 09:25] LABS: Phosphorus 4.8 mg/dL (2.7-4.5)
[2021-11-13] MEDS: 0.9 % Sodium Chloride 1,000 ML 80 ML IVCONT ×2 (09:45→20:50)
[2021-11-13] MEDS: Sodium Bicarbonate 650 MG TABLET PO ×3 (10:16→20:51)
[2021-11-13] MEDS: Finasteride 5 MG TABLET PO (10:17)
--- NOTE | 2021-11-13 10:20 | PC.NURSE ---
Medication administered late due to delay getting medication from pharmacy.
--- NOTE | 2021-11-13 10:27 | MHC.CM.PN ---
Met with patient in regards to discharge planning. Patient lives with his , ambulates with a cane while at home and had no services prior to coming to the hospital. PCP verified. Copy of HCP verified to be on file. Patient denies receiving any Covid vaccines. IMM explained and signed. No services anticipated to be needed. Patient's will transport patient home when medically stable. Continue to monitor for d/c needs.
--- NOTE | 2021-11-13 14:15 | P.PNIM_ITS ---
Subjective Subjective Date of Service: 11/13/21 Interval History: the patient was seen and evaluated this morning Laying in bed, feels better than before but reports overall weakening and feeling unsteady on his feet No reported other overnight events. Review of Systems Systemic review: No fever, chills but reports generalized weakness No chest pain, palpitation No shortness of breath or coughing No abdominal pain, nausea or vomiting No urinary symptoms No any rash or wounds Physical Exam Vital Signs: Vital Signs: Last Vital Signs Temp 98.7 F 11/12/21 16:15 Pulse 99 11/13/21 13:35 Resp 13 11/13/21 13:35 BP 106/63 11/13/21 13:35 Pulse Ox 99 11/13/21 13:35 O2 Del Method 11/13/21 13:35 BMI result Body Mass Index 22.6 Const: Other: Constitutional : Alert, oriented, not in distress Neck : Normal inspection, Supple Cardiovascular : RRR, no JVP, no lower extremity edema Respiratory : fair bilateral air entry, no crackles, wheezes or rhonchi Gastrointestinal: soft, lax, Normal bowel sounds, Non tender Skin : Warm, Dry Neurological : Alert & oriented x3, No focal deficit , CN 2-12 within normal Objective Data Active Medications Acetaminophen (Acetaminophen 325 Mg Tablet) 650 mg PO Q6H PRN PRN Reason: Pain, Mild (Pain Scale 1-3) Docusate Sodium (Docusate Sodium 100 Mg Capsule) 100 mg PO DAILY PRN PRN Reason: Constipation Finasteride (Finasteride 5 Mg Tablet) 5 mg PO DAILY [facility] Last Admin: 11/13/21 10:17 Dose: 5 mg Documented By: MARI Heparin Sodium (Porcine) (Heparin Sodium,Porcine 5,000 Unit/Ml Vial) 5,000 unit SUBCUT Q12H [facility] Last Admin: 11/13/21 07:20 Dose: 5,000 unit Documented By: MARI Ceftriaxone Sodium 1 gm/ (Sodium Chloride) 50 mls @ 100 mls/hr IV Q24H [facility] Last Infusion: 11/13/21 04:31 Dose: 0 mls/hr Documented By: IKE Sodium Chloride (Ns) 1,000 mls @ 80 mls/hr IVCONT .[id number] [facility] Last Admin: 11/13/21 09:45 Dose: 80 mls/hr Documented By: MARI Ondansetron HCl (Ondansetron Hcl 4 Mg/2 Ml Vial) 4 mg IVPUSH Q8H PRN PRN Reason: Nausea and Vomiting Pharmacy Consult (Consult Rx Perform Med Rec) 1 each MISCELLANE ONCE PRN PRN Reason: Consult order Sodium Bicarbonate (Sodium Bicarbonate 650 Mg Tablet) 650 mg PO TID [facility] Last Admin: 11/13/21 10:16 Dose: 650 mg Documented By: MARI Sodium Chloride (0.9 % Sodium Chloride Flush 3 Ml Syringe) 3 ml IVFLUSH QSHIFT [facility] Last Admin: 11/13/21 07:23 Dose: Not Given Documented By: MARI Non-Admin Reason: Med Not Available Labs CBC & Chem 7: 11/13/21 03:34 11/13/21 03:34 Labs: Laboratory Results - last 24 hr 11/12/21 11/12/21 11/12/21 15:12 16:31 18:47 MCV MCH MCHC RDW Plt Count MPV Immature Gran % (Auto) Neut % (Auto) Lymph % (Auto) Baldwin % (Auto) Eos % (Auto) Baso % (Auto) Lymph # (Auto) Baldwin # (Auto) Eos # (Auto) Baso # (Auto) Abs Immat Gran (auto) Absolute Neuts (auto) Absolute Nucleated RBC Nucleated RBC % (auto) Anion Gap 16 Estim Creat Clear Calc 26.7 Estimated GFR 23 POC Glucose 135 H Random Glucose 108 Lactic Acid Calcium 8.6 Phosphorus Total Creatine Kinase 24 L D Urine Color YELLOW Urine Appearance CLOUDY Urine pH 5.5 Ur Specific [place] 1.025 Urine Protein 2+ H Urine Glucose (UA) NEG Urine Ketones NEG Urine Blood 1+ H Urine Nitrite NEG Ur Leukocyte Esterase 2+ H Urine RBC 15-29 H Urine WBC TNTC H Ur Squamous Epith Cells NONE Urine Bacteria 1+ 11/12/21 11/13/21 11/13/21 19:57 03:34 03:34 MCV 95.2 MCH 28.9 MCHC 30.3 L RDW 15.5 Plt Count 421 H MPV 9.0 L Immature Gran % (Auto) 1.9 H Neut % (Auto) 65.6 Lymph % (Auto) 18.7 L Baldwin % (Auto) 11.9 H Eos % (Auto) 1.4 Baso % (Auto) 0.5 Lymph # (Auto) 1.1 L Baldwin # (Auto) 0.7 Eos # (Auto) 0.1 Baso # (Auto) 0.0 Abs Immat Gran (auto) 0.11 H Absolute Neuts (auto) 3.9 Absolute Nucleated RBC 0.000 Nucleated RBC % (auto) 0.0 Anion Gap 14 Estim Creat Clear Calc 33.9 Estimated GFR 31 POC Glucose Random Glucose 100 Lactic Acid 1.8 Calcium 8.3 L Phosphorus 4.8 H Total Creatine Kinase Urine Color Urine Appearance Urine pH Ur Specific [place] Urine Protein Urine Glucose (UA) Urine Ketones Urine Blood Urine Nitrite Ur Leukocyte Esterase Urine RBC Urine WBC Ur Squamous Epith Cells Urine Bacteria Microbiology Microbiology Results: Microbiology 11/12/21 15:12 Urine Culture - Preliminary Urine clean catch - Urine avila top Culture too young to evaluate. Assessment and Plan (1) Acute UTI: Status: Acute (2) Prostate cancer: Status: Acute (3) Hyperkalemia: Status: Acute Plan 71-year-old male with past medical history who presents to the hospital with worsening weakness found to have acute UTI, CRISTIANA CKD and hyperkalemia # CRISTIANA on CKD4 multifactorial in the setting of low oral intake /dehydration as well as UTI abdominal pelvic CT ordered to rule out any hydronephrosis or obstruction IV fluids follow BMP Improved back to his baseline of 2 Nephrology consult pending hold nephrotoxic meds # metabolic acidosis Normal anion gap Start sodium bicarbonate for low level Pending Nephrology eval # hyperkalemia Resolved Received Lokelma follow BMP # UTI positive UA symptomatic Continue ceftriaxone follow blood and urine cultures # Prostate cancer Hold terazosin Start finasteride DVT prophylaxis: Heparin subQ given the acute CRISTIANA, UTI as well as hyperkalemia patient will require overnight hospital stay for further management and monitoring Quality Stroke Does the patient have a stroke diagnosis?: No VTE Prior VTE?: No VTE Risk Level:: Medical - moderate - high VTE Device Contraindication: Treatment Not Indicated VTE Drug Contraindication: N/A - Med Ordered
--- NOTE | 2021-11-13 17:38 | PC.NURSE ---
Pt and updated on plan of care. pt resting in hospital bed. IV re-secured and reinforced. IV fluids continued. at bedside. callbell and belongings within reach.
[2021-11-13] MEDS: cefTRIAXone sodium 1 GM in 0.9 % Sodium Chloride 50 ML IV (18:43)
--- NOTE | 2021-11-14 02:19 | P.CONNP_ITS ---
History of Present Illness Reason for Consult Consult date: 11/13/21 Reason for consult: CRISTIANA Requesting physician: Matt Chou Chief Complaint Chief complaint: CRISTIANA, hyperkalemia History of Present Illness Narrative: Asked to see PT forAKIon CKD and hyperK and NAGMA Adm 11/12 with gen weakness Denies diarrhea Review of Systems Review of Systems Systemic review: No fever, chills but reports generalized weakness No chest pain, palpitation No shortness of breath or coughing No abdominal pain, nausea or vomiting No urinary symptoms No any rash or wounds Yes all other systems are reviewed and are negative Constitutional: Reports no additional constitutional complaints Eyes: Reports no additional eye complaints Denies dizziness Cardiovascular: Reports no additional cardiovascular complaints Respiratory: Reports as per HPI Gastrointestinal: Reports no additional gastrointestinal complaints Musculoskeletal: Reports no additional musculoskeletal complaints Skin/Breast: Denies rash Reports system reviewed and no additional complaints, except as documented, Denies dizziness and Denies Sensory deficit (Neuro) Psychiatric: Denies anxiety PMFSH Past Medical History Medical History Falls Hematuria Hypercholesteremia Hypertension Kidney disease Macular degeneration Prostate cancer Prostate cancer Stenosis of lumbosacral spine Urgency incontinence Urgency incontinence Family History Family History Other No family history of coronary artery disease Surgical History Surgical History History of back surgery History of penile implant History of prostate surgery Social History Social History Household Members: Spouse Housing: House Do you presently have visiting nurse or other home services: No Alcohol intake: former Patient Tobacco Use Status: Current everyday Tobacco user Smoking Start Date: 06/18/61 Tobacco use type: Cigarette Cigarette Packs Per Day: 0.5 Cigarettes Per Day: 10.0 Smoked in Last 30 Days: Yes e-Cigarette/Vaping Use: Never Used Second Hand Smoke Exposure: No Use of substances other than those prescribed or required for medical reasons: No Advance Directives: Yes Advance Directives on File: Yes Advance Directives Date on File: 02/19/21 service: Yes Current occupational status: retired Meds Allergies Allergy/AdvReac Type Severity Reaction Status Date / Time No Known Allergies Allergy Verified 11/05/21 07:46 [No Known Allergies*] Active Medications: Current Medications Acetaminophen (Acetaminophen 325 Mg Tablet) 650 mg PO Q6H PRN PRN Reason: Pain, Mild (Pain Scale 1-3) Docusate Sodium (Docusate Sodium 100 Mg Capsule) 100 mg PO DAILY PRN PRN Reason: Constipation Finasteride (Finasteride 5 Mg Tablet) 5 mg PO DAILY [facility] Last Admin: 11/13/21 10:17 Dose: 5 mg Heparin Sodium (Porcine) (Heparin Sodium,Porcine 5,000 Unit/Ml Vial) 5,000 unit SUBCUT Q12H [facility] Last Admin: 11/13/21 18:43 Dose: 5,000 unit Ceftriaxone Sodium 1 gm/ (Sodium Chloride) 50 mls @ 100 mls/hr IV Q24H [facility] Last Infusion: 11/13/21 20:15 Dose: Infused Sodium Chloride (Ns) 1,000 mls @ 80 mls/hr IVCONT .[id number] [facility] Last Admin: 11/13/21 20:50 Dose: 80 mls/hr Ondansetron HCl (Ondansetron Hcl 4 Mg/2 Ml Vial) 4 mg IVPUSH Q8H PRN PRN Reason: Nausea and Vomiting Pharmacy Consult (Consult Rx Perform Med Rec) 1 each MISCELLANE ONCE PRN PRN Reason: Consult order Sodium Bicarbonate (Sodium Bicarbonate 650 Mg Tablet) 650 mg PO TID [facility] Last Admin: 11/13/21 20:51 Dose: 650 mg Sodium Chloride (0.9 % Sodium Chloride Flush 3 Ml Syringe) 3 ml IVFLUSH QSHIFT [facility] Last Admin: 11/14/21 00:11 Dose: Not Given Home Medications Medication Instructions Recorded Confirmed Last Taken Type lutein 20 mg capsule 20 mg PO DAILY 08/22/21 11/12/21 11/12/21 History amlodipine 5 mg tablet 1 tab PO DAILY 10/07/21 11/12/21 11/12/21 History Physical Exam Vital Signs: Last Vital Signs Temp 97.7 F 11/13/21 14:51 Pulse 105 H 11/13/21 19:33 Resp 16 11/13/21 19:33 BP 118/61 11/13/21 19:33 Pulse Ox 97 11/13/21 19:33 O2 Del Method 11/13/21 19:33 BMI result Body Mass Index 22.6 Const Other: Constitutional : Alert, oriented, not in distress Neck : Normal inspection, Supple Cardiovascular : RRR, no JVP, no lower extremity edema Respiratory : fair bilateral air entry, no crackles, wheezes or rhonchi Gastrointestinal: soft, lax, Normal bowel sounds, Non tender Skin : Warm, Dry Neurological : Alert & oriented x3, No focal deficit , CN 2-12 within normal General: cooperative and no acute distress Nutritional Appearance: average body habitus Orientation/consciousness: oriented to person and patient oriented x3 Limitations: no limitations HEENT Other: very dry oral mucosa Head: Yes normal to inspection Ears: external ears normal General nose exam: Normal external nose present Mouth: Normal oral and palatal mucosa present and oropharynx normal Throat: Yes posterior oropharynx normal Eyes General: appearance normal, both eyes and all related structures Neck Neck: Yes normal visual inspection Chest Chest palpation & inspection: normal inspection of the chest Resp Effort & Inspection: normal respiratory effort Auscultation: clear to auscultation bilaterally Cardio Jugular venous distension: no JVD Rate: regular rate Rhythm: regular rhythm Heart sounds: S1 normal heart sound present and S2 normal heart sound present GI Other: abdomen soft, nontender, no guarding or rebound Inspection: Yes normal to inspection Palpation (GI): Soft to palpation, nontender and No hepatosplenomegaly present Auscultation: normal bowel sounds General: Yes no CVA tenderness Back/Spine/Pelvis Back: no CVA tenderness Skin General skin exam: no rashes or lesions noted Neuro General: oriented to person and patient oriented x3 Cranial nerves: Yes CN's II-XII intact bilaterally Cognition (Neuro): normal cognition Motor exam (neuro): 5/5 motor strength present throughout Sensory Exam: No Sensory deficit (Neuro) Extrem General: Yes normal to inspection and Yes no pedal edema Psych Appearance: grossly normal Results Lab Results Result Diagrams: 11/13/21 03:34 11/13/21 03:34 Lab results: Chemistry 11/12/21 11/12/21 11/13/21 12:52 16:31 03:34 Sodium 135 138 137 Potassium 5.6 H 6.1 H* 4.9 Carbon Dioxide 12 L 13 L 13 L BUN 70 H 67 H 57 H Creatinine 2.99 H 2.70 H 2.13 H Calcium 8.6 8.6 8.3 L Phosphorus 4.8 H Hematology 11/12/21 11/13/21 12:52 03:34 WBC 9.3 5.9 Hgb 11.0 L D 9.7 L Plt Count 507 H D 421 H Urinalysis 11/12/21 15:12 Urine Color YELLOW Urine Appearance CLOUDY Urine pH 5.5 Ur Specific [place] 1.025 Urine Protein 2+ H Urine Glucose (UA) NEG Urine Ketones NEG Urine Blood 1+ H Urine Nitrite NEG Ur Leukocyte Esterase 2+ H Urine RBC 15-29 H Urine WBC TNTC H Ur Squamous Epith Cells NONE Assessment and Plan (1) Acute UTI: Status: Acute (2) Prostate cancer: Status: Acute (3) Hyperkalemia: Status: Acute Plan 1. CRISTIANA: Scr decer with IVF c/w renal hypoperfusion 2.CKD 4:SCr 1.5-2.5, sees Dr Ma as outpt 3. HyperK: d/t CKD, CRISTIANA, NAGMA all contributing--ques underlying bernard 4 RTA 4.NAGMA:ques RTA vs GIlosses ( denies diarrhea) REC:cont PO HCO3 replacement, track K and HCO3; avoid NToxins; f/u with Dr Ma as outpt Procedures Date of Service Date of Service: 11/13/21
[2021-11-14 06:17] VITALS: BP 101/52; PULSE 997; O2SAT 98
--- NOTE | 2021-11-14 07:10 | PC.NURSE ---
Assumed care of this pt. at 0700 and received report from Pema Mcintyre RN
[2021-11-14 07:14] LABS: Hematocrit 29.1 % (42.0-52.0); Hemoglobin 8.9 g/dl (14.0-18.0); Mean Corpuscular HGB Conc 30.6 g/dl (31.0-36.0); Mean Corpuscular Hemoglobin 29.4 pg (27.0-33.0); Mean Platelet Volume 9.2 fL (9.4-12.4); Platelet Count 418 X10*3/uL (160-400); Red Blood Count 3.03 X10*6/uL (4.60-5.80); Red Cell Distribution Width 15.4 % (11.0-16.0); White Blood Count 6.3 X10*3/uL (4.8-10.8)
[2021-11-14 07:25] LABS: Anion Gap 13 (12-20); Blood Urea Nitrogen 42 mg/dL (9-16); Calcium 8.2 mg/dL (8.4-10.2); Carbon Dioxide 16 mmol/L (22-29); Chloride 115 mmol/L (96-108); Creatinine Clr Calc Pharmacy 38.9; Estimated Glomerular Filt Rate 35; Glucose Random 101 mg/dL (60-115); Potassium 4.9 mmol/L (3.3-5.1); Sodium 139 mmol/L (135-145)
[2021-11-14 07:42] VITALS: BP 92/58; PULSE 95; RESP 19; O2SAT 96
[2021-11-14] MEDS: Finasteride 5 MG TABLET PO (08:09)
[2021-11-14] MEDS: Sodium Bicarbonate 650 MG TABLET PO ×3 (08:09→22:43)
[2021-11-14] MEDS: Heparin Sodium,Porcine 5,000 UNIT/ML VIAL 5000 UNIT SUBCUT ×2 (08:11→18:47)
[2021-11-14] MEDS: 0.9 % Sodium Chloride Flush 3 ML SYRINGE IVFLUSH ×2 (08:11→22:44)
[2021-11-14] MEDS: 0.9 % Sodium Chloride 1,000 ML 80 ML IVCONT (09:37)
[2021-11-14 09:45] VITALS: BP 92/58; PULSE 95; O2SAT 96
--- NOTE | 2021-11-14 11:47 | PC.NURSE ---
Spoke to pt.'s [place]. concerned re: a vitamin B12 injection that pt. is supposed to receive tomorrow. Messaged Zenon Winters MD to follow-up about this
--- NOTE | 2021-11-14 13:27 | MHC.CM.PN ---
Addendum entered by Chelsea Hahn 11/14/21 14:37: Met with patient in regards to discharge planning. Patient was recently at [facility]. Not sure if he wants to return. Requesting T/W speak with patient's Vanesa via telephone at [phone]. Vanesa didn't feel patient received the best of care at [facility]. [facility]. Original Note: Patient remains in [facility] unit. Physical therapy is recommending STR. Patient has not received any Covid vaccines. Anticipate he will be difficult to place due to this. Referral being broadcasted in [facility] to see if there is any local bed offers. Attempted to speak with patient's , Vanesa via telephone. No one answered and there is no ability to leave a message. Will attempt to speak to again. [place] to monitor for d/c needs.
--- NOTE | 2021-11-14 14:40 | HO.PM.IMPN ---
Subjective Subjective Date of Service: 11/14/21 Interval History: the patient was seen and evaluated this morning Laying in bed, feels better than before reports overall weakening No reported other overnight events. Review of Systems Systemic review: No fever, chills but reports generalized weakness No chest pain, palpitation No shortness of breath or coughing No abdominal pain, nausea or vomiting No urinary symptoms No any rash or wounds Physical Exam Vital Signs: Vital Signs: Last Vital Signs Temp 97.7 F 11/13/21 14:51 Pulse 95 11/14/21 09:45 Resp 19 11/14/21 07:42 BP 92/58 L 11/14/21 09:45 Pulse Ox 96 11/14/21 09:45 O2 Del Method 11/14/21 07:42 BMI result Body Mass Index 22.6 Const: Other: Constitutional : Alert, oriented, not in distress Neck : Normal inspection, Supple Cardiovascular : RRR, no JVP, no lower extremity edema Respiratory : fair bilateral air entry, no crackles, wheezes or rhonchi Gastrointestinal: soft, lax, Normal bowel sounds, Non tender Skin : Warm, Dry Neurological : Alert & oriented x3, No focal deficit , CN 2-12 within normal Objective Data Active Medications Acetaminophen (Acetaminophen 325 Mg Tablet) 650 mg PO Q6H PRN PRN Reason: Pain, Mild (Pain Scale 1-3) Docusate Sodium (Docusate Sodium 100 Mg Capsule) 100 mg PO DAILY PRN PRN Reason: Constipation Finasteride (Finasteride 5 Mg Tablet) 5 mg PO DAILY [facility] Last Admin: 11/14/21 08:09 Dose: 5 mg Documented By: JEAN Heparin Sodium (Porcine) (Heparin Sodium,Porcine 5,000 Unit/Ml Vial) 5,000 unit SUBCUT Q12H [facility] Last Admin: 11/14/21 08:11 Dose: 5,000 unit Documented By: JEAN Ceftriaxone Sodium 1 gm/ (Sodium Chloride) 50 mls @ 100 mls/hr IV Q24H [facility] Last Infusion: 11/13/21 20:15 Dose: 0 mls/hr Documented By: MELISSA Sodium Chloride (Ns) 1,000 mls @ 80 mls/hr IVCONT .[id number] [facility] Last Admin: 11/14/21 09:37 Dose: 80 mls/hr Documented By: JEAN Ondansetron HCl (Ondansetron Hcl 4 Mg/2 Ml Vial) 4 mg IVPUSH Q8H PRN PRN Reason: Nausea and Vomiting Pharmacy Consult (Consult Rx Perform Med Rec) 1 each MISCELLANE ONCE PRN PRN Reason: Consult order Sodium Bicarbonate (Sodium Bicarbonate 650 Mg Tablet) 650 mg PO TID [facility] Last Admin: 11/14/21 08:09 Dose: 650 mg Documented By: JEAN Sodium Chloride (0.9 % Sodium Chloride Flush 3 Ml Syringe) 3 ml IVFLUSH QSHIFT [facility] Last Admin: 11/14/21 08:11 Dose: 3 ml Documented By: JEAN Labs CBC & Chem 7: 11/14/21 06:43 11/14/21 06:43 Labs: Laboratory Results - last 24 hr 11/14/21 11/14/21 06:43 06:43 MCV 96.0 MCH 29.4 MCHC 30.6 L RDW 15.4 Plt Count 418 H MPV 9.2 L Absolute Nucleated RBC 0.000 Nucleated RBC % (auto) 0.0 Anion Gap 13 Estim Creat Clear Calc 38.9 Estimated GFR 35 Random Glucose 101 Calcium 8.2 L Microbiology Microbiology Results: Microbiology 11/12/21 15:12 Urine Culture - Final Urine clean catch - Urine avila top 11/12/21 19:57 Blood Culture - Preliminary Blood - Venous No growth after 24 hours. 11/12/21 19:57 Blood Culture - Preliminary Blood - Venous No growth after 24 hours. Assessment and Plan (1) Acute UTI: Status: Acute (2) Acute kidney injury superimposed on CKD: Status: Acute Plan 71-year-old male with past medical history who presents to the hospital with worsening weakness found to have acute UTI, CRISTIANA CKD and hyperkalemia # CRISTIANA on CKD4, resolved multifactorial in the setting of low oral intake /dehydration as well as UTI abdominal pelvic CT ordered to rule out any hydronephrosis or obstruction IV fluids follow BMP Improved back to his baseline of 2 Nephrology consult pending hold nephrotoxic meds # metabolic acidosis CO2 improved to 16 Continue sodium bicarbonate for low level Nephrology input appreciated bicarbonate, continue bicarbonate and follow-up with Dr. Ma as outpatient # hyperkalemia Resolved Received Lokelma follow BMP # UTI positive UA symptomatic Continue ceftriaxone follow blood and urine cultures # Prostate cancer Hold terazosin Continue finasteride # physical deconditioning Evaluated by Physical therapy who recommended short-term rehab DVT prophylaxis: Heparin subQ given the acute CRISTIANA, UTI as well as hyperkalemia patient will require overnight hospital stay for further management and monitoring pending safe discharge plan Quality Stroke Does the patient have a stroke diagnosis?: No VTE Prior VTE?: No VTE Risk Level:: Medical - moderate - high VTE Device Contraindication: Treatment Not Indicated VTE Drug Contraindication: N/A - Med Ordered
[2021-11-14 14:52] VITALS: BP 92/62; PULSE 103; RESP 14; TEMP 36.6; O2SAT 99
[2021-11-14] MEDS: 0.9 % Sodium Chloride 1,000 ML 999 ML IV (14:55)
[2021-11-14 17:05] VITALS: BP 122/68; PULSE 101; RESP 16; TEMP 36.4; O2SAT 98
[2021-11-14] MEDS: cefTRIAXone sodium 1 GM in 0.9 % Sodium Chloride 50 ML IV (18:49)
[2021-11-14 20:00] VITALS: BP 105/68; PULSE 93; RESP 18; TEMP 36.4; O2SAT 98
[2021-11-14 22:10] VITALS: BMI 16.7
--- NOTE | 2021-11-14 22:50 | PM.PNNEP ---
Subjective Subjective Date of Service: 11/14/21 Interval history: Seen and examined, events noted Physical Exam Vital Signs: Vital Signs: Last Vital Signs Temp 97.6 F 11/14/21 20:00 Pulse 93 11/14/21 20:00 Resp 18 11/14/21 20:00 BP 105/68 11/14/21 20:00 Pulse Ox 98 11/14/21 20:00 O2 Del Method 11/14/21 20:00 BMI result Body Mass Index 16.7 Const: Other: Constitutional : Alert, oriented, not in distress Neck : Normal inspection, Supple Cardiovascular : RRR, no JVP, no lower extremity edema Respiratory : fair bilateral air entry, no crackles, wheezes or rhonchi Gastrointestinal: soft, lax, Normal bowel sounds, Non tender Skin : Warm, Dry Neurological : Alert & oriented x3, No focal deficit , CN 2-12 within normal General: cooperative and no acute distress Nutritional Appearance: average body habitus Orientation/consciousness: oriented to person and patient oriented x3 Limitations: no limitations HEENT: Other: very dry oral mucosa Head: Yes normal to inspection Ears: external ears normal General nose exam: Normal external nose present Mouth: Normal oral and palatal mucosa present and oropharynx normal Throat: Yes posterior oropharynx normal Eyes: General: appearance normal, both eyes and all related structures Neck: Neck: Yes normal visual inspection Chest: Chest palpation & inspection: normal inspection of the chest Resp: Effort & Inspection: normal respiratory effort Auscultation: clear to auscultation bilaterally Cardio: Jugular venous distension: no JVD Rate: regular rate Rhythm: regular rhythm Heart sounds: S1 normal heart sound present and S2 normal heart sound present GI: Other: abdomen soft, nontender, no guarding or rebound Inspection: Yes normal to inspection Palpation (GI): Soft to palpation, nontender and No hepatosplenomegaly present Auscultation: normal bowel sounds : General: Yes no CVA tenderness Back/Spine/Pelvis: Back: no CVA tenderness Skin: General skin exam: no rashes or lesions noted Neuro: General: oriented to person and patient oriented x3 Cranial nerves: Yes CN's II-XII intact bilaterally Cognition (Neuro): normal cognition Motor exam (neuro): 5/5 motor strength present throughout Sensory Exam: No Sensory deficit (Neuro) Extrem: General: Yes normal to inspection and Yes no pedal edema Psych: Appearance: grossly normal Objective Data Labs CBC & Chem 7: 11/14/21 06:43 11/14/21 06:43 Labs: Laboratory Results - last 24 hr 11/14/21 11/14/21 06:43 06:43 WBC 6.3 RBC 3.03 L Hgb 8.9 L Hct 29.1 L MCV 96.0 MCH 29.4 MCHC 30.6 L RDW 15.4 Plt Count 418 H MPV 9.2 L Absolute Nucleated RBC 0.000 Nucleated RBC % (auto) 0.0 Sodium 139 Potassium 4.9 Chloride 115 H Carbon Dioxide 16 L Anion Gap 13 BUN 42 H Creatinine 1.91 H Estim Creat Clear Calc 38.9 Estimated GFR 35 Random Glucose 101 Calcium 8.2 L Microbiology Microbiology Results: Microbiology 11/12/21 19:57 Blood - Venous Blood Culture - Preliminary No growth after 48 hours. 11/12/21 19:57 Blood - Venous Blood Culture - Preliminary No growth after 48 hours. 11/12/21 15:12 Urine clean catch - Urine avila top Urine Culture - Final Procedures Date of Service Date of Service: 11/14/21 Assessment & Plan Assessment and plan (1) Acute UTI: Status: Acute (2) Prostate cancer: Status: Acute (3) Hyperkalemia: Status: Acute Plan 1. CRISTIANA: Scr cont decer with IVF c/w renal hypoperfusion 2.CKD 4:SCr 1.5-2.5, sees Dr Ma as outpt 3. HyperK: d/t CKD, CRISTIANA, NAGMA all contributing--ques underlying bernard 4 RTA 4.NAGMA:ques RTA vs GIlosses ( denies diarrhea) REC: incr PO HCO3 replacement, track K and HCO3; avoid NToxins; f/u with Dr Ma as outpt Time Spent With Patient Time: Total time spent is greater than 50% in coordination of care (as documented) at patient's floor/unit and/or counseling patient: Progress Note: Quality Stroke Does the patient have a stroke diagnosis?: No
[2021-11-15] VITALS (8 sets, daily range): BP systolic 94–136; BP diastolic 49–87; PULSE 84–106; RESP 15–18; TEMP 36–36.8; O2SAT 97–100; BMI 16.7
[2021-11-15] MEDS: Heparin Sodium,Porcine 5,000 UNIT/ML VIAL 5000 UNIT SUBCUT (05:30)
[2021-11-15 07:25] LABS: Anion Gap 12 (12-20); Blood Urea Nitrogen 34 mg/dL (9-16); Calcium 7.6 mg/dL (8.4-10.2); Carbon Dioxide 19 mmol/L (22-29); Chloride 116 mmol/L (96-108); Creatinine Clr Calc Pharmacy 30.8; Estimated Glomerular Filt Rate 38; Glucose Random 108 mg/dL (60-115); Potassium 4.7 mmol/L (3.3-5.1); Sodium 142 mmol/L (135-145)
[2021-11-15] MEDS: 0.9 % Sodium Chloride Flush 3 ML SYRINGE IVFLUSH ×3 (09:01→22:59)
[2021-11-15] MEDS: Finasteride 5 MG TABLET PO (09:01)
[2021-11-15] MEDS: Sodium Bicarbonate 650 MG TABLET 1300 MG PO ×3 (09:01→22:59)
[2021-11-15] MEDS: Cyanocobalamin (Vitamin B-12) 1,000 MCG/ML VIAL 1000 MCG IM (11:38)
--- NOTE | 2021-11-15 11:57 | P.DS_ITS ---
DS: Providers Provider Date of admission: 11/12/21 17:48 Primary care physician: Jose G Dickerson MD Consults: 11/12/21 17:45 Consult to Nephrology Routine Consulting Provider: [facility] Reason for consultation: CRISTIANA, hyperkalemia Has provider been notified: No DS: Diagnosis Discharge Diagnosis (1) Acute UTI: Status: Acute (2) Prostate cancer: Status: Acute (3) Hyperkalemia: Status: Acute (4) Acute worsening of stage 3 chronic kidney disease: Status: Acute (5) Urgency incontinence: Status: Acute (6) Physical deconditioning: Status: Acute DS: Summary Hospital Course Hospital Course: Admission note HPI This is a 71-year-old male with past medical history of CHF, CKD, history of prostate cancer, HTN, HLD, who presents to the hospital?With complaints of progressive weakness.? Patient reports that he has been feeling increasingly weak in the setting of chronic back pain? and today he had a fall walking from his room to the bathroom which made him come to the hospital.? Patient reports that he has chronic back issues which has caused him to be weaker and weaker every day, ? For the past several weeks.he also says that as a result of this weakness he has become more bed-bound and has difficulty ambulating.? He reports that he has? had res oral intake and poor appetite for the past 1 week.? He also has urinary urgency frequency, as well as some dysuria for the past 4 days.? He had chills last night.? He reports that he was told his prostate cancer might be returning and his urologist started him on 2 new medications about 2 weeks ago which seemed to have worsened his weakness.? He denies any bowel incontinence.? has chronic urgency incontinent that has not worsened. Reports chronic numbness and tingling in his legs as a result of his back issues.? He reports no chest pain, no abdominal pain, no nausea or vomiting, had diarrhea several days ago treated with Imodium that has now resolved.? denies any lower extremity edema.? No shortness of breath or cough.? No headache or change in vision.? On his arrival to the ED patient noted to have a temperature of 97.8 degrees, heart rate of 104, blood pressure 107/56 satting 99% on room air Lab are significant for WBC count 9.3, hemoglobin of 11, hematocrit 36.3, potassium of 5.6, chloride of 112, creatinine of 2.99 with a baseline around? 2 from October, BUN of 70, ?UA is positive for leukocyte Estrace as well as WBC Hospital course The patient was admitted to the hospital for evaluation of worsening weakness. Found to an evidence of worsening stage 3 chronic kidney disease with associated non anion gap lactic acidosis and hyperkalemia. Responded well to IV fluid treatment as pelvic CT scan ruled out any obstruction or hydronephrosis. Evaluated by Nephrology team who recommended starting sodium bicarbonate with good response as his bicarb level increased from 13-19. Plan to follow-up with Nephrology as outpatient. Noted to have urinary tract infection treated with IV antibiotic with good response. Urine culture grew mixed bacteria. To finish total of 7 days of antibiotics. Reported urge incontinence, recurrent UTI as an having history of prostate cancer. Could not tolerate terazosin at home. Started on tamsulosin along with finasteride. Discussed with his urologist Dr. Mace who recommended placing a Saldana catheter at time of discharge and to follow-up with him as outpatient. The patient could not tolerate the Saldana catheter and asked for it to be removed. He will need bladder scan after discharge to the facility 3 times a day to make sure that he is not retaining. Very low threshold to place a new catheter Evaluated by physical therapy team who recommended short-term rehab for physical deconditioning. Continue antibiotic as prescribed Discontinue terazosin Hold amlodipine for low blood pressure , monitor blood pressure for the next 3 days and restart amlodipine only I have systolic pressure higher than 140s. Start tamsulosin 0.8 mg at bedtime continue finasteride to follow with Dr. Mace in the office in couple of weeks. Low threshold to replace new Saldana catheter if he develops retention. Sodium bicarbonate prescribed by Nephrology team. To repeat kidney function next week and follow-up with Dr. Ma as outpatient. Time Spent with Patient Time attestation: Total time spent providing and/or coordinating discharge services: Physical Exam Vital Signs: Vital Signs: Last Vital Signs Temp 97.6 F 11/15/21 08:00 Pulse 84 11/15/21 08:52 Resp 17 11/15/21 08:00 BP 94/49 L 11/15/21 08:52 Pulse Ox 98 11/15/21 08:52 O2 Del Method 11/15/21 08:00 BMI result Body Mass Index 16.7 Const: Other: Constitutional : Alert, oriented, not in distress Neck : Normal inspection, Supple Cardiovascular : RRR, no JVP, no lower extremity edema Respiratory : fair bilateral air entry, no crackles, wheezes or rhonchi Gastrointestinal: soft, lax, Normal bowel sounds, Non tender Skin : Warm, Dry Neurological : Alert & oriented x3, No focal deficit , CN 2-12 within normal DS: Data Data Completed and Pending Labs on day of discharge: Laboratory Results - last 24 hr 11/15/21 05:22 Sodium 142 Potassium 4.7 Chloride 116 H Carbon Dioxide 19 L Anion Gap 12 BUN 34 H Creatinine 1.78 H Estim Creat Clear Calc 30.8 Estimated GFR 38 Random Glucose 108 Calcium 7.6 L D Preliminary micro results at discharge 11/12/21 19:57 Blood Culture - Preliminary Blood - Venous No growth after 48 hours. 11/12/21 19:57 Blood Culture - Preliminary Blood - Venous No growth after 48 hours. Discharge Plan Discharge Patient Disposition: er [facility] Discharge Diagnosis: Urinary tract infection Urine retention from prostate cancer Referrals: Jose G Dickerson MD [Primary Care Provider] - 1 Week Discharge Medications: New sodium bicarbonate 650 mg Tablet 1,300 mg PO BID 30 Days Qty: 120 0RF tamsulosin 0.4 mg capsule 0.8 mg PO BEDTIME Qty: 60 0RF cefuroxime axetil 250 mg tablet 250 mg PO BID Qty: 7 0RF Continued lutein 20 mg Capsule 20 mg PO DAILY Rx Instructions: give with meal/snack finasteride 5 mg tablet 5 mg PO DAILY 90 Days Qty: 90 1RF Held amlodipine 5 mg tablet 1 tab PO DAILY Hold Instructions: Monitor blood pressure for the next 3 days and restart if systolic remains above 140. Discontinued terazosin 5 mg capsule 5 mg PO BEDTIME 30 Days Qty: 30 1RF Discharge Orders: Discharge Order (Routine); Ordered 11/15/21 Ordered By: Alisha Winters Diet: Advance to usual diet Activity on Discharge: As tolerated Stand Alone Forms: Patient Portal Discharge page Other Ambulatory Orders: Basic Metabolic Panel (Routine) Timeframe: 3 Days Facility: [facility] - Location: Laboratory Ordered By: Alisha Winters Care Plan Goals: Read below Health Concerns: Read below Plan of Treatment: Read below Assessment: You were admitted to the hospital for increased weakness. Found to have worsening kidney function with associated high potassium and evidence of urinary tract infection. Treated with IV fluid, IV antibiotics with good response over the course of hospital stay. Noted to have urine retention. Saldana catheter placed after discussing with urologist Dr. Mace. Continue antibiotic as prescribed Discontinue terazosin Hold amlodipine for low blood pressure , monitor blood pressure for the next 3 days and restart amlodipine only I have systolic pressure higher than 140s. Start tamsulosin 0.8 mg at bedtime continue finasteride Keep Saldana catheter in and to follow with Dr. Mace in the office in couple of weeks Sodium bicarbonate prescribed by Nephrology team. To repeat kidney function next week and follow-up with Dr. Ma as outpatient.
--- NOTE | 2021-11-15 12:22 | MHC.INPTTRAN ---
feels too weak to go home at this time. OOB with assist. Able to amb short distances, to bathroom. Voiding sm amt freq. PVR was 190ml Hx of prostate CA Had Vit B 12 shot today. VSS Had BM today. Takes meds whole, jassi diet. Denies pain.
--- NOTE | 2021-11-15 14:10 | MHC.CM.PN ---
IMM 11/15/21 Male 71 DX CRISTIANA Hyperkalemia. He is discharged to [facility] today via BLS. A PCR Covid test is pending.
--- NOTE | 2021-11-15 14:18 | PM.PNNEP ---
Subjective Subjective Date of Service: 11/15/21 Interval history: no events Cr now at Baseline Physical Exam Vital Signs: Vital Signs: Last Vital Signs Temp 96.8 F 11/15/21 12:06 Pulse 95 11/15/21 12:06 Resp 18 11/15/21 12:06 BP 126/63 11/15/21 12:06 Pulse Ox 100 11/15/21 12:06 O2 Del Method 11/15/21 12:06 BMI result Body Mass Index 16.7 Const: Other: Constitutional : Alert, oriented, not in distress Neck : Normal inspection, Supple Cardiovascular : RRR, no JVP, no lower extremity edema Respiratory : fair bilateral air entry, no crackles, wheezes or rhonchi Gastrointestinal: soft, lax, Normal bowel sounds, Non tender Skin : Warm, Dry Neurological : Alert & oriented x3, No focal deficit , CN 2-12 within normal Objective Data Labs CBC & Chem 7: 11/14/21 06:43 11/15/21 05:22 Labs: Laboratory Results - last 24 hr 11/15/21 05:22 Sodium 142 Potassium 4.7 Chloride 116 H Carbon Dioxide 19 L Anion Gap 12 BUN 34 H Creatinine 1.78 H Estim Creat Clear Calc 30.8 Estimated GFR 38 Random Glucose 108 Calcium 7.6 L D Microbiology Microbiology Results: Microbiology 11/12/21 19:57 Blood - Venous Blood Culture - Preliminary No growth after 48 hours. 11/12/21 19:57 Blood - Venous Blood Culture - Preliminary No growth after 48 hours. 11/12/21 15:12 Urine clean catch - Urine avila top Urine Culture - Final Procedures Date of Service Date of Service: 11/15/21 Assessment & Plan Assessment and plan (1) Acute UTI: Status: Acute (2) Prostate cancer: Status: Acute (3) Hyperkalemia: Status: Acute (4) Acute worsening of stage 3 chronic kidney disease: Status: Acute (5) Urgency incontinence: Status: Acute (6) Physical deconditioning: Status: Acute Plan 1. CRISTIANA: Scr cont decer with IVF c/w renal hypoperfusion. Cr now at baseline (BL Cr 1.5-1.7) 2.HyperK: d/t CKD, CRISTIANA, NAGMA all contributing--ques underlying bernard 4 RTA 4.NAGMA:ques RTA vs GIlosses ( denies diarrhea) REC: -c.w NaBicarb 650mg BID chronically - no further IVF needed - f/u wit Dr Ma as outpt Time Spent With Patient Time: Total time spent is greater than 50% in coordination of care (as documented) at patient's floor/unit and/or counseling patient: Progress Note: Quality Stroke Does the patient have a stroke diagnosis?: No
[2021-11-15 14:56] LABS: Influenza A PCR NEGATIVE (Negative); Influenza B PCR NEGATIVE (Negative); Resp Syncy Virus RNA Qual PCR NEGATIVE (Negative); SARS COV2 PCR INHOUSE NEGATIVE (Negative)
--- NOTE | 2021-11-15 15:35 | MHC.INPTTRAN ---
Addendum entered by Leann Zaragoza 11/15/21 16:20: Discharge is on hold r/t hematuria caused by edwards catheter insertion. Patient will stay overnight for observation. The plan is to dc tomorrow via BLS to [facility]. Original Note: edwards inserted , painful for him cath was in for 1 hour, drained yellow urine, removed secondary to pain and had mod amt hematuria with removal. please check PVR with bladder scan after voiding tx Had vit B 12 shot today. VSS jassi diet. Legs weak, needs assist with ambulation, short distances. thanks Ext [phone] for any questions
--- NOTE | 2021-11-15 16:02 | HO.PM.IMPN ---
Subjective Subjective Date of Service: 11/15/21 Interval History: The patient was seen and evaluated this morning Laying in bed, feels better than before Had Saldana catheter placed before discharge but then he felt pain and requested it to be removed. Developed some hematuria after removing it No reported other overnight events Review of Systems Systemic review: No fever, chills but reports generalized weakness No chest pain, palpitation No shortness of breath or coughing No abdominal pain, nausea or vomiting hematuria No any rash or wounds Physical Exam Vital Signs: Vital Signs: Last Vital Signs Temp 96.8 F 11/15/21 12:06 Pulse 95 11/15/21 12:06 Resp 18 11/15/21 12:06 BP 126/63 11/15/21 12:06 Pulse Ox 100 11/15/21 12:06 O2 Del Method 11/15/21 12:06 BMI result Body Mass Index 16.7 Const: Other: Constitutional : Alert, oriented, not in distress Neck : Normal inspection, Supple Cardiovascular : RRR, no JVP, no lower extremity edema Respiratory : fair bilateral air entry, no crackles, wheezes or rhonchi Gastrointestinal: soft, lax, Normal bowel sounds, Non tender Skin : Warm, Dry Neurological : Alert & oriented x3, No focal deficit , CN 2-12 within normal Objective Data Active Medications Acetaminophen (Acetaminophen 325 Mg Tablet) 650 mg PO Q6H PRN PRN Reason: Pain, Mild (Pain Scale 1-3) Docusate Sodium (Docusate Sodium 100 Mg Capsule) 100 mg PO DAILY PRN PRN Reason: Constipation Finasteride (Finasteride 5 Mg Tablet) 5 mg PO DAILY [facility] Last Admin: 11/15/21 09:01 Dose: 5 mg Documented By: REBEKA Heparin Sodium (Porcine) (Heparin Sodium,Porcine 5,000 Unit/Ml Vial) 5,000 unit SUBCUT Q12H [facility] Last Admin: 11/15/21 05:30 Dose: 5,000 unit Documented By: RADHA Ceftriaxone Sodium 1 gm/ (Sodium Chloride) 50 mls @ 100 mls/hr IV Q24H [facility] Last Infusion: 11/14/21 22:06 Dose: 0 mls/hr Documented By: RADHA Ondansetron HCl (Ondansetron Hcl 4 Mg/2 Ml Vial) 4 mg IVPUSH Q8H PRN PRN Reason: Nausea and Vomiting Pharmacy Consult (Consult Rx Perform Med Rec) 1 each MISCELLANE ONCE PRN PRN Reason: Consult order Phenazopyridine HCl (Phenazopyridine Hcl 200 Mg Tablet) 200 mg PO TIDWM [facility] Stop: 11/17/21 08:01 Sodium Bicarbonate (Sodium Bicarbonate 650 Mg Tablet) 1,300 mg PO TID [facility] Last Admin: 11/15/21 15:10 Dose: 1,300 mg Documented By: REBEKA Sodium Chloride (0.9 % Sodium Chloride Flush 3 Ml Syringe) 3 ml IVFLUSH QSHIFT [facility] Last Admin: 11/15/21 09:01 Dose: 3 ml Documented By: REBEKA Labs CBC & Chem 7: 11/14/21 06:43 11/15/21 05:22 Labs: Laboratory Results - last 24 hr 11/15/21 11/15/21 05:22 12:25 Anion Gap 12 Estim Creat Clear Calc 30.8 Estimated GFR 38 Random Glucose 108 Calcium 7.6 L D Influenza Type A (PCR) NEGATIVE Influenza Type B (PCR) NEGATIVE RSV RNA Qual (PCR) NEGATIVE SARS-CoV-2 RNA (RT-PCR) NEGATIVE Microbiology Microbiology Results: Microbiology 11/12/21 19:57 Blood Culture - Preliminary Blood - Venous No growth after 48 hours. 11/12/21 19:57 Blood Culture - Preliminary Blood - Venous No growth after 48 hours. Assessment and Plan (1) Hematuria: Status: Acute (2) Physical deconditioning: Status: Acute (3) Urgency incontinence: Status: Acute (4) Prostate cancer: Status: Acute (5) Acute UTI: Status: Acute (6) Acute kidney injury superimposed on CKD: Status: Acute Plan 71-year-old male with past medical history who presents to the hospital with worsening weakness found to have acute UTI, CRISTIANA CKD and hyperkalemia # CRISTIANA on CKD4, resolved # metabolic acidosis multifactorial in the setting of low oral intake /dehydration as well as UTI abdominal pelvic CT ordered to rule out any hydronephrosis or obstruction DC IV fluids hold nephrotoxic meds follow BMP Improved back to 1.9 CO2 improved to 19 Continue sodium bicarbonate Nephrology input appreciated bicarbonate, continue bicarbonate and follow-up with Dr. Ma as outpatient # hematuria A estrogenic after removing Saldana catheter that was placed a earlier for retention Monitor overnight Hold heparin Urology consult # hyperkalemia Resolved Received Lokelma follow BMP # UTI positive UA symptomatic Continue ceftriaxone follow blood and urine cultures # Prostate cancer Discontinue terazosin , start tamsulosin for low side effect profile Continue finasteride # physical deconditioning Evaluated by Physical therapy who recommended short-term rehab DVT prophylaxis: Heparin subQ given the acute CRISTIANA, UTI as well as hyperkalemia patient will require overnight hospital stay for further management and monitoring pending safe discharge plan Quality Stroke Does the patient have a stroke diagnosis?: No VTE Prior VTE?: No VTE Risk Level:: Medical - moderate - high VTE Device Contraindication: Treatment Not Indicated VTE Drug Contraindication: N/A - Med Ordered
[2021-11-15] MEDS: Phenazopyridine HCL 200 MG TABLET PO (17:44)
--- NOTE | 2021-11-15 20:10 | PC.NURSE ---
1400 F/C inserted per MD. c/o pain. Urine cloudy, yellow. 1445 Pt cont with pain and wanted cath removed. MD notified. Sm amt bleeding from meatus. Saldana removed. Had mod amt bleeding from penis. No clots. Bleeding stopped after a few minutes. Pyridium given Discharge on hold until able to void on own.
[2021-11-15] MEDS: Tamsulosin HCL 0.4 MG CAPSULE 0.8 MG PO (22:59)
[2021-11-15] MEDS: cefTRIAXone sodium 1 GM in 0.9 % Sodium Chloride 50 ML IV (22:59)
[2021-11-16 06:00] VITALS: BMI 15.5
[2021-11-16 07:51] VITALS: BP 116/60; PULSE 100; RESP 20; TEMP 36.4; O2SAT 98
[2021-11-16] MEDS: 0.9 % Sodium Chloride Flush 3 ML SYRINGE IVFLUSH ×3 (09:22→19:47)
[2021-11-16] MEDS: Phenazopyridine HCL 200 MG TABLET PO ×3 (09:23→16:03)
[2021-11-16] MEDS: Finasteride 5 MG TABLET PO (09:23)
[2021-11-16] MEDS: Sodium Bicarbonate 650 MG TABLET 1300 MG PO ×3 (09:23→19:47)
--- NOTE | 2021-11-16 10:44 | P.PNIM_ITS ---
Subjective Subjective Date of Service: 11/16/21 Interval History: The patient was seen and evaluated this morning Laying in bed, feels better overall but concerned about hematuria Has some dripping of blood but no active bleeding No reported other overnight events Review of Systems Systemic review: No fever, chills but reports generalized weakness No chest pain, palpitation No shortness of breath or coughing No abdominal pain, nausea or vomiting hematuria No any rash or wounds Physical Exam Vital Signs: Vital Signs: Last Vital Signs Temp 97.5 F 11/16/21 07:51 Pulse 100 11/16/21 07:51 Resp 20 11/16/21 07:51 BP 116/60 11/16/21 07:51 Pulse Ox 98 11/16/21 07:51 O2 Del Method 11/16/21 07:51 BMI result Body Mass Index 15.5 Const: Other: Constitutional : Alert, oriented, not in distress Neck : Normal inspection, Supple Cardiovascular : RRR, no JVP, no lower extremity edema Respiratory : fair bilateral air entry, no crackles, wheezes or rhonchi Gastrointestinal: soft, lax, Normal bowel sounds, Non tender Skin : Warm, Dry Urology: has blood on his pants, no clots noted Neurological : Alert & oriented x3, No focal deficit , CN 2-12 within normal Objective Data Active Medications Acetaminophen (Acetaminophen 325 Mg Tablet) 650 mg PO Q6H PRN PRN Reason: Pain, Mild (Pain Scale 1-3) Docusate Sodium (Docusate Sodium 100 Mg Capsule) 100 mg PO DAILY PRN PRN Reason: Constipation Finasteride (Finasteride 5 Mg Tablet) 5 mg PO DAILY [facility] Last Admin: 11/16/21 09:23 Dose: 5 mg Documented By: TIMA Ceftriaxone Sodium 1 gm/ (Sodium Chloride) 50 mls @ 100 mls/hr IV Q24H [facility] Last Infusion: 11/15/21 23:54 Dose: 0 mls/hr Documented By: MARGE Ondansetron HCl (Ondansetron Hcl 4 Mg/2 Ml Vial) 4 mg IVPUSH Q8H PRN PRN Reason: Nausea and Vomiting Pharmacy Consult (Consult Rx Perform Med Rec) 1 each MISCELLANE ONCE PRN PRN Reason: Consult order Phenazopyridine HCl (Phenazopyridine Hcl 200 Mg Tablet) 200 mg PO TIDWM [facility] Stop: 11/17/21 08:01 Last Admin: 11/16/21 09:23 Dose: 200 mg Documented By: TIMA Sodium Bicarbonate (Sodium Bicarbonate 650 Mg Tablet) 1,300 mg PO TID [facility] Last Admin: 11/16/21 09:23 Dose: 1,300 mg Documented By: TIMA Sodium Chloride (0.9 % Sodium Chloride Flush 3 Ml Syringe) 3 ml IVFLUSH QSHIFT [facility] Last Admin: 11/16/21 09:22 Dose: 3 ml Documented By: TIMA Tamsulosin HCl (Tamsulosin Hcl 0.4 Mg Capsule) 0.8 mg PO BEDTIME [facility] Last Admin: 11/15/21 22:59 Dose: 0.8 mg Documented By: MARGE Labs CBC & Chem 7: 11/14/21 06:43 11/15/21 05:22 Labs: Laboratory Results - last 24 hr 11/15/21 12:25 Influenza Type A (PCR) NEGATIVE Influenza Type B (PCR) NEGATIVE RSV RNA Qual (PCR) NEGATIVE SARS-CoV-2 RNA (RT-PCR) NEGATIVE Assessment and Plan (1) Hematuria: Status: Acute (2) Physical deconditioning: Status: Acute Plan 71-year-old male with past medical history who presents to the hospital with worsening weakness found to have acute UTI, CRISTIANA CKD and hyperkalemia # hematuria after placing and removing Saldana catheter that was placed a earlier for r etention Monitor overnight Hold heparin Urology not covering over the weekend, discussed the case, no recommendations for intervention, likely self-limiting PA # CRISTIANA on CKD4, resolved # metabolic acidosis improved abdominal pelvic CT ordered to rule out any hydronephrosis or obstruction Improved back to 1.9 CO2 improved to 19 Continue sodium bicarbonate Nephrology input appreciated bicarbonate, continue bicarbonate and follow-up with Dr. Ma as outpatient # hyperkalemia Resolved Received Lokelma follow BMP # UTI positive UA symptomatic Continue ceftriaxone follow blood and urine cultures # Prostate cancer Discontinue terazosin , start tamsulosin for low side effect profile Continue finasteride # physical deconditioning Evaluated by Physical therapy who recommended short-term rehab DVT prophylaxis: Heparin subQ given the hematuria patient will require overnight hospital stay for further management and monitoring pending safe discharge plan Quality Stroke Does the patient have a stroke diagnosis?: No VTE Prior VTE?: No VTE Risk Level:: Medical - moderate - high VTE Device Contraindication: Treatment Not Indicated VTE Drug Contraindication: N/A - Med Ordered
[2021-11-16 11:42] VITALS: BP 97/57; PULSE 98; RESP 18; TEMP 36.5; O2SAT 99
--- NOTE | 2021-11-16 13:54 | PM.PNNEP ---
Subjective Subjective Date of Service: 11/16/21 Interval history: Cr improving daily Physical Exam Vital Signs: Vital Signs: Last Vital Signs Temp 97.7 F 11/16/21 11:42 Pulse 98 11/16/21 11:42 Resp 18 11/16/21 11:42 BP 97/57 L 11/16/21 11:42 Pulse Ox 99 11/16/21 11:42 O2 Del Method 11/16/21 11:42 BMI result Body Mass Index 15.5 Const: Other: Constitutional : Alert, oriented, not in distress Neck : Normal inspection, Supple Cardiovascular : RRR, no JVP, no lower extremity edema Respiratory : fair bilateral air entry, no crackles, wheezes or rhonchi Gastrointestinal: soft, lax, Normal bowel sounds, Non tender Skin : Warm, Dry Neurological : Alert & oriented x3, No focal deficit , CN 2-12 within normal Objective Data Labs CBC & Chem 7: 11/14/21 06:43 11/15/21 05:22 Labs: Laboratory Results - last 24 hr 11/15/21 12:25 Influenza Type A (PCR) NEGATIVE Influenza Type B (PCR) NEGATIVE RSV RNA Qual (PCR) NEGATIVE SARS-CoV-2 RNA (RT-PCR) NEGATIVE Microbiology Microbiology Results: Microbiology 11/12/21 19:57 Blood - Venous Blood Culture - Preliminary No growth after 48 hours. 11/12/21 19:57 Blood - Venous Blood Culture - Preliminary No growth after 48 hours. 11/12/21 15:12 Urine clean catch - Urine avila top Urine Culture - Final Procedures Date of Service Date of Service: 11/16/21 Assessment & Plan Assessment and plan (1) Acute UTI: Status: Acute (2) Prostate cancer: Status: Acute (3) Hyperkalemia: Status: Acute (4) Acute worsening of stage 3 chronic kidney disease: Status: Acute (5) Urgency incontinence: Status: Acute (6) Physical deconditioning: Status: Acute Plan 1. CRISTIANA: Scr cont decer with IVF c/w renal hypoperfusion. Cr now at baseline (BL Cr 1.5-1.7) 2.HyperK: d/t CKD, CRISTIANA, NAGMA all contributing--ques underlying bernard 4 RTA 4.NAGMA:ques RTA vs GIlosses ( denies diarrhea) REC: -c.w NaBicarb 650mg BID chronically - no further IVF needed - f/u wit Dr Ma as outpt Time Spent With Patient Time: Total time spent is greater than 50% in coordination of care (as documented) at patient's floor/unit and/or counseling patient: Progress Note: Quality Stroke Does the patient have a stroke diagnosis?: No
[2021-11-16 15:50] VITALS: BP 130/58; PULSE 109; RESP 18; TEMP 36.4; O2SAT 99
[2021-11-16] MEDS: Acetaminophen 325 MG TABLET 650 MG PO (16:02)
[2021-11-16] MEDS: cefTRIAXone sodium 1 GM in 0.9 % Sodium Chloride 50 ML IV (19:46)
[2021-11-16] MEDS: Tamsulosin HCL 0.4 MG CAPSULE 0.8 MG PO (19:47)
[2021-11-16 20:00] VITALS: BP 119/65; PULSE 68; RESP 18; TEMP 37; O2SAT 98
[2021-11-16 23:41] VITALS: BP 92/48; PULSE 87; RESP 18; TEMP 37.1; O2SAT 97
[2021-11-17 04:00] VITALS: BP 128/76; PULSE 86; RESP 20; TEMP 36.6
[2021-11-17 05:20] VITALS: BMI 15.9
[2021-11-17 08:00] VITALS: BP 99/55; PULSE 98; RESP 20; TEMP 36.5; O2SAT 97
[2021-11-17] MEDS: Phenazopyridine HCL 200 MG TABLET PO (09:51)
[2021-11-17] MEDS: Sodium Bicarbonate 650 MG TABLET 1300 MG PO ×2 (09:51→15:49)
[2021-11-17] MEDS: Finasteride 5 MG TABLET PO (09:52)
[2021-11-17] MEDS: 0.9 % Sodium Chloride Flush 3 ML SYRINGE IVFLUSH ×2 (09:52→15:49)
[2021-11-17 12:00] VITALS: BP 103/59; PULSE 99; RESP 20; TEMP 36.6; O2SAT 100
--- NOTE | 2021-11-17 12:22 | HO.PM.IMPN ---
Subjective Subjective Date of Service: 11/17/21 Interval History: The patient was seen and evaluated this morning No evidence of hematuria, awaiting placement Review of Systems Systemic review: No fever, chills but reports generalized weakness No chest pain, palpitation No shortness of breath or coughing No abdominal pain, nausea or vomiting or hematuria No any rash or wounds Physical Exam Vital Signs: Vital Signs: Last Vital Signs Temp 97.7 F 11/17/21 08:00 Pulse 98 11/17/21 08:00 Resp 20 11/17/21 08:00 BP 99/55 L 11/17/21 08:00 Pulse Ox 97 11/17/21 08:00 O2 Del Method 11/17/21 08:00 BMI result Body Mass Index 15.9 Const: Other: Constitutional : Alert, oriented, not in distress Neck : Normal inspection, Supple Cardiovascular : RRR, no JVP, no lower extremity edema Respiratory : fair bilateral air entry, no crackles, wheezes or rhonchi Gastrointestinal: soft, lax, Normal bowel sounds, Non tender Skin : Warm, Dry Neurological : Alert & oriented x3, No focal deficit , CN 2-12 within normal Objective Data Active Medications Acetaminophen (Acetaminophen 325 Mg Tablet) 650 mg PO Q6H PRN PRN Reason: Pain, Mild (Pain Scale 1-3) Last Admin: 11/16/21 16:02 Dose: 650 mg Documented By: TIMA Docusate Sodium (Docusate Sodium 100 Mg Capsule) 100 mg PO DAILY PRN PRN Reason: Constipation Finasteride (Finasteride 5 Mg Tablet) 5 mg PO DAILY [facility] Last Admin: 11/17/21 09:52 Dose: 5 mg Documented By: TIMA Ceftriaxone Sodium 1 gm/ (Sodium Chloride) 50 mls @ 100 mls/hr IV Q24H [facility] Last Infusion: 11/16/21 20:18 Dose: 0 mls/hr Documented By: CHEIKH Ondansetron HCl (Ondansetron Hcl 4 Mg/2 Ml Vial) 4 mg IVPUSH Q8H PRN PRN Reason: Nausea and Vomiting Pharmacy Consult (Consult Rx Perform Med Rec) 1 each MISCELLANE ONCE PRN PRN Reason: Consult order Sodium Bicarbonate (Sodium Bicarbonate 650 Mg Tablet) 1,300 mg PO TID [facility] Last Admin: 11/17/21 09:51 Dose: 1,300 mg Documented By: TIMA Sodium Chloride (0.9 % Sodium Chloride Flush 3 Ml Syringe) 3 ml IVFLUSH QSHIFT [facility] Last Admin: 11/17/21 09:52 Dose: 3 ml Documented By: TIMA Tamsulosin HCl (Tamsulosin Hcl 0.4 Mg Capsule) 0.8 mg PO BEDTIME [facility] Last Admin: 11/16/21 19:47 Dose: 0.8 mg Documented By: CHEIKH Labs CBC & Chem 7: 11/14/21 06:43 11/15/21 05:22 Assessment and Plan (1) Hematuria: Status: Acute (2) Physical deconditioning: Status: Acute Plan 71-year-old male with past medical history who presents to the hospital with worsening weakness found to have acute UTI, CRISTIANA CKD and hyperkalemia and hospital course complicated by Hematuria. # Hematuria--likely Iatrogenic from traumatic edwards catheter for urinary retention. The hamaturia was self limiting and has resolved. He follows with Dr. Mace and can follow up with him on outpatient basis # CRISTIANA on CKD4 likely from urinary retention, CT of abdomen showed no hydronephrosis, Creatine is down from 2.99 and down to 1.78 #Cr now at baseline (BL Cr 1.5-1.7)---Nephrology has recommended sodium bicab replacement. 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 He is being followed by Dr. Thomas and recommend soidum bicab 650 twice daily and will follow with his sizing machine operator Dr. Ma # Hyperkalemia due to CKD and CRISTIANA--treated madi Wilkins and resolved. # UTI--Has history of Klebsiel in Urine and blood, but culture this time is negative. He has been on Ceftriaxone with improvement in dysuria, and will treat with ceftin to complete a 10 day course of antibiotics # Prostate cancer Discontinue terazosin , start tamsulosin for low side effect profile Continue finasteride # physical deconditioning Evaluated by Physical therapy who recommended short-term rehab which he is agreable to DVT prophylaxis: Out of bed, ambulate in light of hematuria need for inpatient: awaiting short term rehab placement, will dc today if bed available. Quality Stroke Does the patient have a stroke diagnosis?: No VTE Prior VTE?: No VTE Risk Level:: Medical - moderate - high VTE Device Contraindication: Treatment Not Indicated VTE Drug Contraindication: N/A - Med Ordered
--- NOTE | 2021-11-17 13:13 | MHC.CM.PN ---
Per MD, Patient will be medically cleared for dc to SNF/STR today. Patient will dc to [facility], as planned right along, today at 4PM, via [facility]. Last IMM addressed on 11/15/21.
--- NOTE | 2021-11-17 14:30 | P.DS_ITS ---
DS: Providers Provider Date of Service: 11/17/21 Date of admission: 11/12/21 17:48 Primary care physician: Jose G Dickerson MD Consults: 11/12/21 17:45 Consult to Nephrology Routine Consulting Provider: [facility] Reason for consultation: CRISTIANA, hyperkalemia Has provider been notified: No 11/15/21 16:03 Consult to Urology Routine Consulting Provider: Ruddy Mace Reason for consultation: Hematuria after deciding to remove the Saldana shortly after placement DS: Diagnosis Discharge Diagnosis (1) Hematuria: Status: Acute (2) Physical deconditioning: Status: Acute DS: Summary Hospital Course Hospital Course: Admission note HPI This is a 71-year-old male with past medical history of CHF, CKD, history of prostate cancer, HTN, HLD, who presents to the hospital?With complaints of progressive weakness.? Patient reports that he has been feeling increasingly weak in the setting of chronic back pain? and today he had a fall walking from his room to the bathroom which made him come to the hospital.? Patient reports that he has chronic back issues which has caused him to be weaker and weaker every day, ? For the past several weeks.he also says that as a result of this weakness he has become more bed-bound and has difficulty ambulating.? He reports that he has? had res oral intake and poor appetite for the past 1 week.? He also has urinary urgency frequency, as well as some dysuria for the past 4 days.? He had chills last night.? He reports that he was told his prostate cancer might be returning and his urologist started him on 2 new medications about 2 weeks ago which seemed to have worsened his weakness.? He denies any bowel incontinence.? has chronic urgency incontinent that has not worsened. Reports chronic numbness and tingling in his legs as a result of his back issues.? He reports no chest pain, no abdominal pain, no nausea or vomiting, had diarrhea several days ago treated with Imodium that has now resolved.? denies any lower extremity edema.? No shortness of breath or cough.? No headache or change in vision.? On his arrival to the ED patient noted to have a temperature of 97.8 degrees, heart rate of 104, blood pressure 107/56 satting 99% on room air Lab are significant for WBC count 9.3, hemoglobin of 11, hematocrit 36.3, potassium of 5.6, chloride of 112, creatinine of 2.99 with a baseline around? 2 from October, BUN of 70, ?UA is positive for leukocyte Estrace as well as WBC Hospital course The patient was admitted to the hospital for evaluation of worsening weakness. Found to an evidence of worsening stage 3 chronic kidney disease with associated non anion gap lactic acidosis and hyperkalemia. Responded well to IV fluid treatment as pelvic CT scan ruled out any obstruction or hydronephrosis. Evaluated by Nephrology team who recommended starting sodium bicarbonate with good response as his bicarb level increased from 13-19. Plan to follow-up with Nephrology as outpatient. Noted to have urinary tract infection treated with IV antibiotic with good response. Urine culture grew mixed bacteria. To finish a course of Ceftin for a total of 10 days of antibiotics Reported urge incontinence, recurrent UTI as an having history of prostate cancer. Could not tolerate terazosin at home. Started on tamsulosin (Flomax) along with finasteride. Discussed with his urologist Dr. Mace who recommended placing a Saldana catheter at time of discharge and to follow-up with him as outpatient. The patient could not tolerate the Saldana catheter and asked for it to be removed. He will need bladder scan after discharge to the facility 3 times a day to make sure that he is not retaining. Very low threshold to place a new catheter. So far for 2 days now he's been voiding on his own Evaluated by physical therapy team who recommended short-term rehab for physical deconditioning. Continue antibiotic as prescribed Discontinue terazosin Hold amlodipine for low blood pressure , monitor blood pressure for the next 3 days and restart amlodipine only I have systolic pressure higher than 140s. Start tamsulosin 0.8 mg at bedtime continue finasteride to follow with Dr. Mace in the office in couple of weeks. Low threshold to replace new Saldana catheter if he develops retention. Sodium bicarbonate prescribed by Nephrology team. To repeat kidney function ne xt week and follow-up with Dr. Ma as outpatient. Time Spent with Patient Time attestation: Total time spent providing and/or coordinating discharge services: Discharge coordination time: Greater than 30 minutes Quality: Safe Use of Opioids Does Pt have an Active Cancer Diagnosis on the Problem List?: No Quality: Stroke Does the patient have a stroke diagnosis?: No Physical Exam Vital Signs: Vital Signs: Last Vital Signs Temp 97.9 F 11/17/21 12:00 Pulse 99 11/17/21 12:00 Resp 20 11/17/21 12:00 BP 103/59 L 11/17/21 12:00 Pulse Ox 100 11/17/21 12:00 O2 Del Method 11/17/21 12:00 BMI result Body Mass Index 15.9 Const: Other: Constitutional : Alert, oriented, not in distress Neck : Normal inspection, Supple Cardiovascular : RRR, no JVP, no lower extremity edema Respiratory : fair bilateral air entry, no crackles, wheezes or rhonchi Gastrointestinal: soft, lax, Normal bowel sounds, Non tender Skin : Warm, Dry Neurological : Alert & oriented x3, No focal deficit , CN 2-12 within normal DS: Data Data Completed and Pending Labs on day of discharge: Preliminary micro results at discharge 11/12/21 19:57 Blood Culture - Preliminary Blood - Venous No growth after 48 hours. 11/12/21 19:57 Blood Culture - Preliminary Blood - Venous No growth after 48 hours. Discharge Plan Discharge Anticipated Discharge Date/Time: 11/17/21 14:21 Patient Disposition: Xfer SNF Discharge Diagnosis: Urinary tract infection Urine retention from prostate cancer Referrals: [facility] [Outside] - 1 Week Jose G Dickerson MD [Primary Care Provider] - 1 Week Discharge Medications: New sodium bicarbonate 650 mg Tablet 1,300 mg PO BID 30 Days Qty: 120 0RF tamsulosin 0.4 mg capsule 0.8 mg PO BEDTIME Qty: 60 0RF cefuroxime axetil 250 mg tablet 250 mg PO BID 4 Days Qty: 8 0RF Continued lutein 20 mg Capsule 20 mg PO DAILY Rx Instructions: give with meal/snack finasteride 5 mg tablet 5 mg PO DAILY 90 Days Qty: 90 1RF Held amlodipine 5 mg tablet 1 tab PO DAILY Hold Instructions: Monitor blood pressure for the next 3 days and restart if systolic remains above 140. Discontinued terazosin 5 mg capsule 5 mg PO BEDTIME 30 Days Qty: 30 1RF Discharge Orders: Discharge Order (Routine); Ordered 11/17/21 Ordered By: Matt Chou Diet: Advance to usual diet Activity on Discharge: As tolerated Stand Alone Forms: Patient Portal Discharge page Other Ambulatory Orders: Basic Metabolic Panel (Routine) Timeframe: 3 Days Facility: [facility] - Location: Laboratory Ordered By: Alisha Winters Care Plan Goals: Read below Health Concerns: Read below Plan of Treatment: Read below Assessment: You were admitted to the hospital for increased weakness. Found to have worsening kidney function with associated high potassium and evidence of urinary tract infection. Treated with IV fluid, IV antibiotics with good response over the course of hospital stay. Noted to have urine retention. Saldana catheter placed after discussing with urologist Dr. Mace and later removed with some bleedint that has since stopped and you are able to void on your own Continue antibiotic as prescribed Ceftin 250 mg twice daily Discontinue terazosin take tamsulosin 0.8 mg at bedtime continue finasteride Sodium bicarbonate prescribed by Nephrology team. To repeat kidney function next week and follow-up with Dr. Ma as outpatient. You are going to short term rehab to improve your strength and deconditioning before ultimatelty going back home
== END 2021-11-17 14:40 | disposition skilled nursing facility (03) | DRG 683 ==
LOC: HO.ED 17:14 → HO.EDOVER 18:02 → HO.IMC 11-14 20:16
PROVIDERS: Student in an Organized Health Care Education/Training Program; Admitting Provider Internal Medicine; Emergency Provider Emergency Medicine; PCP Internal Medicine Medical Oncology; Visit Provider Internal Medicine
DX: N17.9 Acute kidney failure, unspecified (principal); E87.2 Acidosis; N39.0 Urinary tract infection, site not specified; I13.0 Hypertensive heart and chronic kidney disease with heart failure and stage 1 through stage 4 chronic kidney disease, or unspecified chronic kidney disease; E11.22 Type 2 diabetes mellitus with diabetic chronic kidney disease; R31.9 Hematuria, unspecified; N18.30 Chronic kidney disease, stage 3 unspecified; E86.0 Dehydration; I50.9 Heart failure, unspecified; R53.81 Other malaise; G89.29 Other chronic pain; R33.9 Retention of urine, unspecified; C61 Malignant neoplasm of prostate; N39.41 Urge incontinence; F17.210 Nicotine dependence, cigarettes, uncomplicated; Z20.822 Contact with and (suspected) exposure to COVID-19; Z71.6 Tobacco abuse counseling; Z87.440 Personal history of urinary (tract) infections; Z79.899 Other long term (current) drug therapy
CPT/HCPCS: 0241U; 36415; 74176; 80048; 81001; 82550; 82947; 83605; 84100; 85025; 85027; 87040; 87086; 87635; 93005; 94640; 96360; 96361; 97110; 97162; 99285; J0696

== ENCOUNTER 2021-12-16 09:59 | Outpatient (REF) | payer MEDICARE, SELFPAY ==
[2021-12-16 10:48] LABS: Hematocrit 32.6 % (42.0-52.0); Hemoglobin 9.5 g/dl (14.0-18.0); Mean Corpuscular HGB Conc 29.1 g/dl (31.0-36.0); Mean Corpuscular Hemoglobin 28.3 pg (27.0-33.0); Mean Platelet Volume 9.4 fL (9.4-12.4); Platelet Count 354 X10*3/uL (160-400); Red Blood Count 3.36 X10*6/uL (4.60-5.80); Red Cell Distribution Width 14.6 % (11.0-16.0); White Blood Count 9.2 X10*3/uL (4.8-10.8)
[2021-12-16 11:37] LABS: Anion Gap 16 (12-20); Blood Urea Nitrogen 22 mg/dL (9-16); Calcium 9.1 mg/dL (8.4-10.2); Carbon Dioxide 25 mmol/L (22-29); Chloride 108 mmol/L (96-108); Estimated Glomerular Filt Rate 42; Glucose Random 115 mg/dL (60-115); Sodium 144 mmol/L (135-145)
[2021-12-18 11:57] LABS: Calcium (PTHI) 9.3 mg/dL (8.6-10.3); PTHI 30 pg/mL (16-77)
== END 2021-12-16 10:00 | disposition home or self-care (01) ==
LOC: HO.LAB 09:59
PROVIDERS: PCP Internal Medicine Medical Oncology; Visit Provider Internal Medicine Hypertension Specialist
DX: N18.32 Chronic kidney disease, stage 3b (principal)
CPT/HCPCS: 36415; 80048; 83970; 85027

== ENCOUNTER 2022-01-13 10:15 | Outpatient (REF) | payer MEDICARE, SELFPAY ==
[2022-01-13 11:45] LABS: PSA,Total (Free>4and<10) 10.28 ng/mL (0.00-4.00)
[2022-01-17 20:41] LABS: Testosterone, Free 30.2 pg/mL (30.0-135.0); Testosterone, Total 288 ng/dL (250-1100)
== END 2022-01-13 10:16 | disposition home or self-care (01) ==
LOC: HO.LAB 10:15
PROVIDERS: PCP Internal Medicine Medical Oncology; Visit Provider Urology
DX: Z12.5 Encounter for screening for malignant neoplasm of prostate (principal); C61 Malignant neoplasm of prostate
CPT/HCPCS: 36415; 84153; 84402; 84403

== ENCOUNTER 2022-01-27 13:46 | Outpatient (REF) | payer MEDICARE, SELFPAY ==
--- NOTE | ~2022-01-27 | US_ITS ---
EXAMINATION: Noninvasive assessment of the bilateral lower extremities with ARTERIAL DUPLEX and ANKLE BRACHIAL INDICES (ABIs). CLINICAL INFORMATION: Peripheral vascular disease TECHNIQUE: Duplex Doppler techniques with waveform analysis and measurement of velocities in the bilateral common femoral, profunda femoris, superficial femoral, popliteal and tibial arteries were performed. Additionally, ankle pulse volume recordings, ankle pressure measurements and ankle brachial indices were obtained of the lower extremity arterial system bilaterally. The study was performed only at rest. COMPARISON: 09/09/2021 FINDINGS: DIRECT DUPLEX DOPPLER FINDINGS: RIGHT LEG: Common femoral artery: 78 cm/s, phasicity: Triphasic. Mild calcified plaque Profunda femoris artery: 86 cm/s, phasicity: Triphasic Superficial femoral artery (proximal): 96 cm/s, phasicity: Triphasic Superficial femoral artery (mid): 121 cm/s, phasicity: Triphasic Superficial femoral artery (distal): 55 cm/s, phasicity: Triphasic Popliteal artery: 35 cm/s, phasicity: Triphasic Posterior tibial artery: 127 cm/s, phasicity: Triphasic Peroneal artery: 32 cm/s, phasicity: Triphasic LEFT LEG: Common femoral artery: 226 cm/s, phasicity: Triphasic. Mild calcified plaque Profunda femoris artery: 213 cm/s, phasicity: Triphasic Superficial femoral artery (proximal): 127 cm/s, phasicity: Biphasic Superficial femoral artery (mid): 120 cm/s, phasicity: Biphasic Superficial femoral artery (distal): 63 cm/s, phasicity: Biphasic Popliteal artery: 42 cm/s, phasicity: Triphasic Posterior tibial artery: 47 cm/s, phasicity: Triphasic Peroneal artery: 87 cm/s, phasicity: Triphasic ANKLE-BRACHIAL INDEX: Right: 1.05?, previously 1.31 Left: 0.89, previously 1.15 ANKLE PRESSURES: Right: PT 135, DP 122 Left: PT?115, DP?114 ANKLE PVR WAVEFORMS: Right: Normal Left: Normal US/US arterial duplex LE BI IMPRESSION: Right leg: Normal ankle brachial index, pulse volume waveforms and arterial Doppler waveforms without evidence of significant arterial stenosis or occlusion Left leg: Minimally decreased ankle brachial index with normal pulse volume waveform and arterial Doppler waveforms. No significant arterial stenosis or occlusion RAUL Reference: - >1.4 = calcified vessels - 0.9 - 1.4 = normal - no significant arterial disease - 0.7 - 0.89 = mild peripheral arterial disease - 0.51 - 0.69 = moderate peripheral arterial disease - ? 0.50 = severe peripheral arterial disease - < .30 = critical arterial disease
== END 2022-01-27 13:47 | disposition home or self-care (01) ==
LOC: HO.US 13:46
PROVIDERS: Visit Provider Surgery Vascular Surgery
DX: I73.9 Peripheral vascular disease, unspecified (principal)
CPT/HCPCS: 93923; 93925

== ENCOUNTER → 2022-01-28 10:16 | Outpatient (BNVA) | payer MEDICARE, SELFPAY | PROVIDERS: PCP Internal Medicine Medical Oncology; Visit Provider Urology | DX: N30.40 Irradiation cystitis without hematuria (principal); R39.15 Urgency of urination; R35.1 Nocturia; C61 Malignant neoplasm of prostate | CPT/HCPCS: 99212 ==

== ENCOUNTER → 2022-01-30 13:54 | Outpatient (BNVA) | payer MEDICARE, SELFPAY | PROVIDERS: PCP Internal Medicine Medical Oncology; Visit Provider Surgery Vascular Surgery | DX: I73.9 Peripheral vascular disease, unspecified (principal) | CPT/HCPCS: 99212 ==

== ENCOUNTER 2022-02-05 10:11 | Outpatient (REF) | payer MEDICARE, SELFPAY | END 2022-02-05 10:12 | disposition home or self-care (01) | LOC: HO.LAB 10:11 | PROVIDERS: Visit Provider Urology | DX: Z13.89 Encounter for screening for other disorder (principal) ==

== ENCOUNTER 2022-02-05 10:36 | Outpatient (REF) | payer MEDICARE, SELFPAY | END 2022-02-05 10:37 | disposition home or self-care (01) | LOC: HO.10HDL 10:36 | PROVIDERS: Visit Provider Urology | DX: R39.15 Urgency of urination (principal) | CPT/HCPCS: 87086 ==

== ENCOUNTER 2022-03-04 14:51 | Inpatient (IN) | payer MEDICARE, SELFPAY ==
--- NOTE | ~2022-03-04 | CT_ITS ---
EXAMINATION: CT ABDOMEN AND PELVIS WITHOUT CONTRAST CLINICAL INFORMATION: Scrotal swelling. Question abscess. COMPARISON: CT abdomen pelvis 11/12/2021 TECHNIQUE: Multidetector volumetric imaging was performed from the superior aspect of the liver through the pubic symphysis. Sagittal and coronal reformatted images were obtained on the technologist's workstation. This CT examination was performed using dose optimization techniques as appropriate, variously including the following: *Automated exposure control *Adjustment of mA and/or kV according to patient size (this includes techniques or standardized protocols for targeted exams where dose is matched to indication/reason for exam; i.e. extremities or head) *Use of iterative reconstruction technique DLP: 485 mGy-cm FINDINGS: LUNG BASES: The visualized lung bases are unremarkable. LIVER, GALLBLADDER, AND BILIARY TREE: The liver is normal in size, shape, and attenuation. No focal hepatic lesion or biliary ductal dilatation is present. The gallbladder is unremarkable with no evidence of radiopaque gallstones, gallbladder wall thickening, or obvious pericholecystic inflammatory changes. PANCREAS: Unremarkable. SPLEEN: Unremarkable. ADRENAL GLANDS: Unremarkable. KIDNEYS AND URETERS: No hydronephrosis or renal calculi identified. Low density simple appearing bilateral renal cysts are unchanged, largest partially exophytic from the posterior right mid to lower pole measuring 4.4 cm in size. Unchanged mild symmetric bilateral perirenal fascial stranding/edema. BLADDER: Diffusely thick-walled appearance. Limited bladder distention. No focal bladder wall thickening identified. GASTROINTESTINAL TRACT: No dilated bowel loops. No bowel wall thickening. Normal appendix. No ascites or free air. ABDOMINAL WALL: No significant hernia is appreciated. LYMPH NODES: No lymphadenopathy. VASCULAR: Mildly tortuous normal caliber abdominal aorta. Extensive vascular calcifications. Ectatic right common iliac artery measuring up to 1.8 cm in diameter. No kelsy aneurysm. PELVIC VISCERA: Normal prostate gland is not seen. Redemonstrated 4 x 2.2 cm low-density collection with some peripheral mineralization the expected position of the prostate gland. The previously seen fluid-filled tracks in the left tibia history of renal fossa are no longer identified. Edema of the lower scrotum. There is a multiseptated low-density collection in the posterior aspect of the scrotum that measures at least 4.6 x 6.9 x 6.5 cm in size suspicious for scrotal abscess. No gas within the collection. Edema in the adjacent scrotal skin. OSSEOUS STRUCTURES: Or prominent sclerosis involving the T12 vertebral body. 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 No new suspicious osseous lesion. No acute fracture. Multilevel disc degenerative change, similar to prior. Interspinous fixation at L3-L4 noted. Diffuse disc bulge and posterior disc protrusion at L3-L4 significantly narrows the spinal canal as on prior. CT/CT abdomen pelvis wo IV con IMPRESSION: 1. 4.6 x 6.9 x 6.5 cm multiseptated low-density collection in the scrotum suspicious for scrotal abscess. No gas within the collection. 2. Redemonstrated 4 x 2.2 cm low-density collection in the expected position of the prostate gland. Correlate with surgical history. 3. No acute intra-abdominal process identified. 4. Increased sclerosis of the T12 lesion. Correlate with history of malignancy. Consider whole body bone scan and correlation with PSA. Additional ancillary findings, as described.
[2022-03-04 15:18] VITALS: BP 139/66; PULSE 94; RESP 18; TEMP 36.5; O2SAT 99; BMI 22.4
[2022-03-04 18:18] VITALS: BP 150/69; PULSE 90; RESP 18; TEMP 36.2; O2SAT 100
--- NOTE | 2022-03-04 18:31 | ED_ITS ---
HPI - Male Genitourinary General Chief complaint: Urogenital-Male Stated complaint: sent from doctors, lump under testicle Time Seen by Provider: 03/04/22 18:24 Source: patient Mode of arrival: ambulatory Limitations: no limitations History of Present Illness HPI Narrative: Patient's history of prostate cancer, prostate abscess with chronic in duration at the base of scrotum for few months comes here as is tender as not getting better anymore took Levaquin 2 weeks ago. No fever no shortness with a cough has chills + seen by his PCP you are asking to go to the hospital for further evaluation Related Data Home Medications Medication Instructions Recorded Confirmed acetaminophen 325 mg tablet 650 mg PO Q6H PRN Pain 03/04/22 03/04/22 ferrous gluconate 324 mg (38 mg 1 tab PO QAM 03/04/22 03/04/22 iron) tablet Previous Rx's Medication Instructions Recorded finasteride 5 mg tablet 5 mg PO DAILY 90 days #90 tabs 11/05/21 fesoterodine 4 mg tablet,extended 4 mg PO DAILY 30 days #30 tabs 01/28/22 release 24 hr Allergies Allergy/AdvReac Type Severity Reaction Status Date / Time No Known Allergies Allergy Verified 01/30/22 14:00 [No Known Allergies*] Review of Systems Review of Systems: Yes all other systems are reviewed and are negative [facility] Past Medical History Medical History (Updated 03/04/22 @ 21:50 by Tracie Fleming MD) [place] Hematuria Hypercholesteremia Hypertension Kidney disease Macular degeneration Prostate cancer Prostate cancer Stenosis of lumbosacral spine Urgency incontinence Urgency incontinence Surgical History History of back surgery History of penile implant History of prostate surgery Family History Family History Other No family history of coronary artery disease Social History Social History Household Members: Spouse Housing: House Do you presently have visiting nurse or other home services: No Alcohol intake: former Patient Tobacco Use Status: Current everyday Tobacco user Smoking Start Date: 06/18/61 Tobacco use type: Cigarette Cigarette Packs Per Day: 0.5 Cigarettes Per Day: 6 e-Cigarette/Vaping Use: Never Used Second Hand Smoke Exposure: No Advance Directives: Yes Advance Directives on File: Yes Advance Directives Date on File: 02/19/21 service: Yes Current occupational status: retired Physical Exam Vital Signs: Vital Signs: Last Vital Signs Temp 98.6 F 03/05/22 00:32 Pulse 84 03/05/22 00:32 Resp 16 03/05/22 00:32 BP 117/61 03/05/22 00:32 Pulse Ox 99 03/05/22 00:32 O2 Del Method 03/05/22 00:32 BMI result Body Mass Index 22.4 Appearance: Alert. Oriented X3. No acute distress. Eyes: No pallor or icterus ENT: Pharynx normal. Oral Mucosa moist Neck: Normal inspection. Neck supple. CVS: Normal heart rate and rhythm. Pulses normal. Respiratory: No respiratory distress. Equal air entry bilateral, no wheezing/rales/rhonchi Abdomen: Soft and nontender. Bowel sounds are present, no mass palpable, no CVA tenderness Skin: Skin warm and dry. Normal skin color. Normal skin turgor. Extremities: No lower extremity edema. No calf tenderness Neuro: Oriented X 3. No motor deficit. No sensory deficit.No cerebellar signs , cranial nerves II-XII intact : Male genitals images: 1. Indurated tender area with slight erythema MDM - Male Genitourinary MDM Narrative Medical decision making narrative: 850 pm Patient with 6 x 4 cm right scrotal abscess with septi formation case discussed with urologist advised to keep the patient NPO and will take him to OR tomorrow for I and D requested to admit the patient to medical service Medical Records Attestation: I reviewed the patient's medical records. Lab Data Attestation: I reviewed the patient's lab results. Result diagrams: 03/04/22 19:21 03/04/22 19:21 Labs: Lab Results 03/04/22 03/04/22 03/04/22 Range/Units 19:21 19:21 19:21 WBC 13.2 H (4.8-10.8) X10*3/uL RBC 3.31 L (4.60-5.80) X10*6/uL Hgb 9.0 L (14.0-18.0) g/dl Hct 29.7 L (42.0-52.0) % MCV 89.7 (80.0-98.0) fL MCH 27.2 (27.0-33.0) pg MCHC 30.3 L (31.0-36.0) g/dl RDW 14.8 (11.0-16.0) % Plt Count 451 H D (160-400) X10*3/uL MPV 8.9 L (9.4-12.4) fL Immature Gran % (Auto) 0.5 H (0.0-0.4) % Neut % (Auto) 78.5 H (45-73) % Lymph % (Auto) 11.7 L (20-40) % [place] % (Auto) 5.5 (2-11) % Eos % (Auto) 3.4 (0-4) % Baso % (Auto) 0.4 (0-2) % Lymph # (Auto) 1.6 (1.2-4.9) X10*3/uL [place] # (Auto) 0.7 (0.1-1.2) X10*3/uL Eos # (Auto) 0.5 H (0.0-0.4) X10*3/uL Baso # (Auto) 0.1 (0.0-0.2) X10*3/uL Abs Immat Gran (auto) 0.07 H (0.00-0.03) X10*3/uL Absolute Neuts (auto) 10.4 H (2.0-8.3) x10*3/uL Absolute Nucleated RBC 0.000 (0.0-0.012) X10*3/uL Nucleated RBC % (auto) 0.0 (0.0-0.2) /100WBC Sodium 142 (135-145) mmol/L Potassium 5.5 H (3.3-5.1) mmol/L Chloride 110 H (96-108) mmol/L Carbon Dioxide 22 (22-29) mmol/L Anion Gap 16 (12-20) BUN 29 H (9-16) mg/dL Creatinine 1.87 H (0.5-1.4) mg/dL Estim Creat Clear Calc 37.7 Estimated GFR 35 Random Glucose 102 (60-115) mg/dL Lactic Acid 0.9 (0.5-2.0) mmol/L Calcium 9.0 (8.4-10.2) mg/dL Total Bilirubin < 0.2 (0.0-1.0) mg/dL AST 9 D (5-37) U/L ALT < 6 (0-40) U/L Alkaline Phosphatase 77 D (39-117) U/L Total Protein 6.1 L (6.5-8.0) g/dL Albumin 3.5 (3.5-5.0) g/dL COVID-19 (SHARAD) (Negative) COVID-19 Clin Com 03/04/22 Range/Units 21:18 WBC (4.8-10.8) X10*3/uL RBC (4.60-5.80) X10*6/uL Hgb (14.0-18.0) g/dl Hct (42.0-52.0) % MCV (80.0-98.0) fL MCH (27.0-33.0) pg MCHC (31.0-36.0) g/dl RDW (11.0-16.0) % Plt Count (160-400) X10*3/uL MPV (9.4-12.4) fL Immature Gran % (Auto) (0.0-0.4) % Neut % (Auto) (45-73) % Lymph % (Auto) (20-40) % [place] % (Auto) (2-11) % Eos % (Auto) (0-4) % Baso % (Auto) (0-2) % Lymph # (Auto) (1.2-4.9) X10*3/uL [place] # (Auto) (0.1-1.2) X10*3/uL Eos # (Auto) (0.0-0.4) X10*3/uL Baso # (Auto) (0.0-0.2) X10*3/uL Abs Immat Gran (auto) (0.00-0.03) X10*3/uL Absolute Neuts (auto) (2.0-8.3) x10*3/uL Absolute Nucleated RBC (0.0-0.012) X10*3/uL Nucleated RBC % (auto) (0.0-0.2) /100WBC Sodium (135-145) mmol/L Potassium (3.3-5.1) mmol/L Chloride (96-108) mmol/L Carbon Dioxide (22-29) mmol/L Anion Gap (12-20) BUN (9-16) mg/dL Creatinine (0.5-1.4) mg/dL Estim Creat Clear Calc Estimated GFR Random Glucose (60-115) mg/dL Lactic Acid (0.5-2.0) mmol/L Calcium (8.4-10.2) mg/dL Total Bilirubin (0.0-1.0) mg/dL AST (5-37) U/L ALT (0-40) U/L Alkaline Phosphatase (39-117) U/L Total Protein (6.5-8.0) g/dL Albumin (3.5-5.0) g/dL COVID-19 (SHARAD) Negative (Negative) COVID-19 Clin Com See Note Discharge Plan Discharge Clinical Impression: Abscess of scrotum Patient Disposition: Admitted As Inpatient
--- OUTSIDE RECORDS SUMMARY | 2022-03-04 18:52 | XMS_ITS | Continuity of Care Document ---
:1950 Author Organization [facility] Address [address] [place] [address]- Care Team Providers Name Role Phone Jose G Dickerson MD Primary Care Physician [place] [facility] [place] - 02/18/[address] [id number] Discharge Disposition: A-D/C Home Attending Physician: Jose G Russo MD Admitting Physician: Jose G Russo MD Referring Physician: Jose G Russo MD Allergies, Adverse Reactions, Alerts No Known Allergies Medications atenolol 25 mg oral tablet 1 tablet, By Mouth, Daily, # 30 tablet, 0 Refills, Maintenance, Tablet Start Date: 05/22/10 Status: OrderedDilaudid Inj 1 mg, Injection, IV Push Slowly, Every 4 hours, PRN for Pain , Severe, Routine, 02/17/22 12:50:00 EDT Start Date: 02/17/22 Stop Date: 02/18/22 Status: DiscontinuedoxyCODONE 5 mg oral tablet 10 mg, 2, tablet, By Mouth, Every 6 hours, PRN, # 30 tablet, Refills 0, Tot. Refills 0, Acute 02/24/22 16:03:00 EDT, Pain , Moderate, 02/17/22 16:03:00 EDT, Print Requisition, Partial fill upon patientrequest if the prescription is for a schedule II... Start Date: 02/17/22 Stop Date: 02/24/22 Status: Ordered Procedures Procedure Date Related Diagnosis Body Site Status Laminectomy, facetectomy and foraminotomy Completed (unilateral or bilateral with decompression of spinal cord, cauda equina and/or nerve root[s], [eg, spinal or lateral recess stenosis]), single vertebral segment; lumbar Results Radiology Reports Exam Date Time Procedure Performing Provider Status 02/17/22 1:38 PM C-Arm > 1 Hour Carolyn Salazar; Auth (Verif ied) Notes:(C-Arm > 1 Hour) Reason For Exam: spinal stenosisRESULT: C-Arm > 1 Hour Spine Single View, C-Arm > 1 Hour INDICATION: Reason: spinal stenosis; Special Instructions: 0.6109Fxla6 00:01.3F.T. [id number] COMPARISONS: None TECHNIQUE: Fluoroscopy support was provided. There was no radiologist in attendance. FLUOROSCOPY TIME: 01.3 seconds EXPOSURE: 1 images TECHNOLOGIST TIME: 1 hour 35 minutes FINDINGS: A single lateral view of the lower lumbosacral spine are obtained by the portable image intensifier in the operating room shows metallic instruments pointing posteriorly at the L4 vertebral body. The patient to was planned to undergo L3-L4 discectomy and posterior laminectomy. Please refer to the operative report for more details. IMPRESSION: See above. WSN: [id number] Ordering Physician: Jose G Russo Dictated By: Harry Cota MD, V Dictated Date/Time: 02/17/22 2:34 pm Reviewed By: Harry Cota MD, V Signed By: Harry Cota MD, V Signed Date/Time: 02/17/22 2:34 pm Transcribed By: SARAH Transcribed Date/Time: 02/17/22 2:33 pm Exam Date Time Procedure Performing Provider Status 02/17/22 1:38 PM Spine Single View Carolyn Salazar; Auth (Raj ified) Notes:(Spine Single View) Reason For Exam: spinal stenosisRESULT: Spine Single View Spine Single View, C-Arm > 1 Hour INDICATION: Reason: spinal stenosis; Special Instructions: 0.1567Wfvl7 00:01.3F.T. [id number] COMPARISONS: None TECHNIQUE: Fluoroscopy support was provided. There was no radiologist in attendance. FLUOROSCOPY TIME: 01.3 seconds EXPOSURE: 1 images TECHNOLOGIST TIME: 1 hour 35 minutes FINDINGS: A single lateral view of the lower lumbosacral spine are obtained by the portable image intensifier in the operating room shows metallic instruments pointing posteriorly at the L4 vertebral body. The patient to was planned to undergo L3-L4 discectomy and posterior laminectomy. Please refer to the operative report for more details. IMPRESSION: See above. WSN: [id number] Ordering Physician: Jose G Russo Dictated By: Harry Cota MD, V Dictated Date/Time: 02/17/22 2:34 pm Reviewed By: Harry Cota MD, V Signed By: Harry Cota MD, V Signed Date/Time: 02/17/22 2:34 pm Transcribed By: SARAH Transcribed Date/Time: 02/17/22 2:33 pm Vital Signs Most recent to oldest 1 2 3 [Reference Range]: Weight 70.5 kg (02/17/22 8:32 AM) Oxygen Saturation [94-100 98 % 96 % 97 % %] (02/18/22 7:34 AM) (02/18/22 4:50 AM) (02/18/22 12:17 AM) Pulse Rate [55-90 bpm] 63 bpm 107 bpm 119 bpm (02/18/22 7:34 AM) *H* *H* (02/18/22 4:50 AM) (02/18/22 12: 17 AM) Blood Pressure 97/50 mm Hg 104/52 mm Hg 115/54 mm Hg [90-138/55-84 mm Hg] (02/18/22 7:34 AM) (02/18/22 4:50 AM) (02/01 12/23 12:17 AM) Respiratory Rate [16-30 15 br/min 19 br/min 18 br/mi n br/min] *L* (02/18/22 4:50 AM) (02/18/22 3:2 6 AM) (02/18/22 7:34 AM) Temperature [96.8-100.4 99.1 DegF 98.6 DegF 98.3 Deg F DegF] (02/18/22 7:34 AM) (02/18/22 4:50 AM) (02/18/22 12:17 AM) Liters per Minute 2 L/min 2 L/min 2 L/min (02/17/22 3:06 PM) (02/17/22 2:45 PM) (02/17/22 1:30 PM) Mode of Delivery (Oxygen) Room air Room air Room a ir (02/18/22 7:34 AM) (02/18/22 4:50 AM) (02/18/22 12:17 AM) Blood pressure sites Arm, left Arm, left Arm, right (02/18/22 7:34 AM) (02/18/22 4:50 AM) (02/18/22 12:17 AM) Temperature Route Oral Oral Oral (02/18/22 7:34 AM) (02/18/22 4:50 AM) (02/18/22 12:17 AM) Note CARLOS Alvarez S: TRANSCRIHarry Elias MD, V: VERIFY Event Display: Result: Authored Date: [id number] Spine Single View, C-Arm > 1 Hour INDICATION: Reason: spinal stenosis; Special Instructions: 0.6532Qank5 00:01.3F.T. [id number] COMPARISONS: None TECHNIQUE: Fluoroscopy support was provided. There was no radiologist in attendance. FLUOROSCOPY TIME: 01.3 seconds EXPOSURE: 1 images TECHNOLOGIST TIME: 1 hour 35 minutes FINDINGS: A single lateral view of the lower lumbosacral spine are obtained by the portable image intensifier in the operating room shows metallic instruments pointing posteriorly at the L4 vertebral body. The patient to was planned to undergo L3-L4 discectomy and posterior laminectomy. Please refer to the operative report for more details. IMPRESSION: See above. WSN: [id number] Ordering Physician: Jose G Russo Dictated By: Harry Cota MD, V Dictated Date/Time: 02/17/22 2:34 pm Reviewed By: Harry Cota MD, V Signed By: Harry Cota MD, V Signed Date/Time: 02/17/22 2:34 pm Transcribed By: SARAH Transcribed Date/Time: 02/17/22 2:33 pm XR Spine Single view BHCARLOS Garcia S: Harry Davidson MD, V: VERIFY Event Display: Result: Authored Date: [id number] Spine Single View, C-Arm > 1 Hour INDICATION: Reason: spinal stenosis; Special Instructions: 0.7134Wuji5 00:01.3F.T. [id number] COMPARISONS: None TECHNIQUE: Fluoroscopy support was provided. There was no radiologist in attendance. FLUOROSCOPY TIME: 01.3 seconds EXPOSURE: 1 images TECHNOLOGIST TIME: 1 hour 35 minutes FINDINGS: A single lateral view of the lower lumbosacral spine are obtained by the portable image intensifier in the operating room shows metallic instruments pointing posteriorly at the L4 vertebral body. The patient to was planned to undergo L3-L4 discectomy and posterior laminectomy. Please refer to the operative report for more details. IMPRESSION: See above. WSN: [id number] Ordering Physician: Jose G Russo Dictated By: Harry Cota MD, V Dictated Date/Time: 02/17/22 2:34 pm Reviewed By: Harry Cota MD, V Signed By: Harry Cota MD, V Signed Date/Time: 02/17/22 2:34 pm Transcribed By: SARAH Transcribed Date/Time: 02/17/22 2:33 pm Patient Care team information PersonnelName: Jose G Dickerson MD Address: Address: [address] [place] [address] [address] [place] [address]
--- OUTSIDE RECORDS SUMMARY | 2022-03-04 18:52 | XMS_ITS ---
:1950 Author Care Team Providers Name Role Phone ROBERT CHACON 2ND FLOOR OTHER [phone] MICHEL BAL MD Primary Care Provider [phone] Allergies Code Code System Name Reaction Severity Status Onset NKDA ? Medications Notes: meds reviewed, see mar for comp lete list Problems Name Status Onset Date Source ? Sepsis Active 08/27/2021 ? Cobalamin Deficiency Active 08/27/2021 ? Mixed Hyperlipidemia Active 08/27/2021 ? Tobacco Dependence Syndrome Active 08/27/2021 ? Hypertensive Disorder Active 08/27/2021 ? Congestive Heart Failure Active 08/27/2021 ? Acute Urinary Tract Infection Active 08/27/2021 ? Rhabdomyolysis Active 08/27/2021 ? Vertigo Active 08/27/2021 ? Closed Fracture of Great Toe Active 08/27/2021 ? History of Malignant Neoplasm of Prostate Active 2021 ? 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 Chronic Kidney Disease Stage 3a Active 08/27/2021 ? Procedures None recorded. Results Lab Results None recorded. Past Encounters 09/02/2021 Acute Urinary Tract Infection; Chronic K idney Disease Stage 3a; Closed Fracture of Great Toe; Cobalamin Deficiency; Rhabdomyolysis; Sepsis; Tobacco Dependence Syndrome; Vertigo; Mixed Hyperlipidemia; Hi story of Malignant Neoplasm of Prostate; Hypertensive Disorder; Congestive Heart Failure; Recurrent Falls Barbara Monsivais SECURITY ADVISOR: [address] [place] [address], Ph. 08/28/2021 Acute Urinary Tract Infection; History o f Malignant Neoplasm of Prostate; Mixed Hyperlipidemia; Recurrent Falls; Closed Fracture of Great Toe Chelsea Crowell MD: [address] [facility] [place] [address], Ph. 08/27/2021 Acute Urinary Tract Infection; Chronic K idney Disease Stage 3a; Closed Fracture of Great Toe; Cobalamin Deficiency; Rhabdomyolysis; Sepsis; Tobacco Dependence Syndrome; Vertigo; Mixed Hyperlipidemia; Hi story of Malignant Neoplasm of Prostate; Hypertensive Disorder; Congestive Heart Failure; Recurrent Falls JYOTI Maldonado: [address], [place] [address], Ph. Social History Tobacco Smoking Status Heavy Tobacco Smoker (1/2 pack per da y) Vaccine List None recorded. Plan of Care Reminders Provider Appointments None recorded. ? ? Lab None recorded. ? ? Referral None recorded. ? ? Procedures None recorded. ? ? Surgeries None recorded. ? ? Imaging None recorded. ? ? Vitals 09/02/2021 09:01AM Discharge Summary Blood Pressure 128/70 mm[Hg] 08/28/2021 07:54AM Admitting H&P Blood Pressure 132/70 mm[Hg] 08/27/2021 02:56PM Initial Intake Note Blood Pressure 138/69 mm[Hg]
--- OUTSIDE RECORDS SUMMARY | 2022-03-04 18:52 | XMS_ITS | Continuity of Care Document ---
:1950 Author Organization [facility] Care Team Providers Name Role Phone [facility] Unavailable Unavailable Encounters Combined list of: 1) Encounters from Department of Veterans Affairs facilities going back up to the last 18 months. 2) Encounters from the Department of Defense facilities going back up to 280 months. Location Location Encounter Encounter Reason Attending ADM DC Stat us Disposition Source Details Type Number For Provider Date Date Visit Outpatient [id number] 08/23 [id number] [facility] [place] [facility] Outpatient [id number] 08/28 [facility] Encounter [id number] [facility] [place] [facility] Outpatient [id number] 08/29 [facility] Encounter [id number] [facility] [place] [facility]
--- OUTSIDE RECORDS SUMMARY | 2022-03-04 18:52 | XMS_ITS | Encounter Summary ---
:1950 Author Organization [facility] Address [address] [place] [address] Insurance Providers: All historical and current Section Date Range: From patient's date of to the date document was created.This section includes the names of all active insurance providers for the patient. Insurance Type of Plan Start of End of Group Member Insurance Policy P atient's Provider Coverage Name Policy Policy Number ID Provider's Weaver's Relationship Coverage Coverage Telephone Name to Policy Number Weaver [facility] MEDICARE MEDEX Aug 02, [id number] MALIK SKI PATIENT SUPPLEMEN BRONZ 2014 05 [id number] 4 ,MACI Mascorro [facility] MEDICARE PSUED Aug 02, [id number] [phone] MALIK SKI PATIENT SUPPLEMEN O 2015 02 [id number] 4 ,MACI GARCÍA MEDEX [place] MEDICARE MEDICARE PART Aug 02, PART B [id number] MALIK SKI PATIENT (WNR) (M) B 2014 [id number] 4 ,[place] MEDICARE MEDICARE PART Aug 02, PART B [id number] MALIK SKI PATIENT (WNR) (M) B 2014 [id number] 2 ,[place] MEDICARE MEDICARE PART Feb 01, PART A [id number] MALIK SKI PATIENT (WNR) (M) A 2012 [id number] 4 ,[place] MEDICARE MEDICARE PART Feb 01, PART A [id number] MALIK SKI PATIENT (WNR) (M) A 2012 [id number] 2 ,[place] Selected Encounter This section includes the information on record at [place] for the Encounter. Date/Time Encounter Type Encounter Description Reason Provider Source Aug 28, 2021 03:06 Outpatient Encounter COMMUNITY CARE PM CONSULT I[facility] Encounter Template Text not used by [facility] Encounter Notes: All associated encounter notes This section contains the clinical notes associated to the Encounter. Date/Time Encounter Note(s) Provider Source Aug 28, 2021 03:06 PM NONVA NOTE: DHRUV BROOKS [facility] LOCAL TITLE: COMMUNITY CARE COORDINATION PLAN STANDARD TITLE: NONVA NOTE DATE OF NOTE: AUG 28, 2021@15:06 ENTRY DATE: AUG 28, 2021@15:06:27 AUTHOR: DHRUV BROOKS EXP COSIGNER: URGENCY: STATUS: COMPLETED self-presented to community emergency fa cility Emergency Notification Intake Date Presenting to the Facility: Aug [facility] Hospital Name: Hospital: [place], [place] Address: City: [place] State: Zip Code: Phone : Chief complaint: FALL- LEG PAIN Primary Diagnosis: SEPSIS, UTI,CRISTIANA,RHABDO Patient Admitted? Yes Route of Admission: ER Date/Time of Admission: Aug@19:00 Admitting Diagnosis: SEPSIS, UTI,CRISTIANA,RHABDO Community Care Provider: Confirm Level of Care: Community Facility Point of Contact: Name: Sayra Phone: info from E[facility] /bar/ DHRUV BROOKS AMSA Signed: 08/28/2021 15:07 Receipt Acknowledged By: * AWAITING SIGNATURE * ROSALBA GUILLERMO * AWAITING SIGNATURE * SCOTT MIGUEL * AWAITING SIGNATURE * BERTHA TRACY
--- OUTSIDE RECORDS SUMMARY | 2022-03-04 18:52 | XMS_ITS | Encounter Summary ---
:1950 Author Organization [facility] Address [address] [place] [address] Insurance Providers: All historical and current Section Date Range: From patient's date of to the date document was created.This section includes the names of all active insurance providers for the patient. Insurance Type of Plan Start of End of Group Member Insurance Policy P atient's Provider Coverage Name Policy Policy Number ID Provider's Weaver's Relationship Coverage Coverage Telephone Name to Policy Number Weaver [facility] MEDICARE MEDEX Aug 02, [id number] [phone] MALIK SKI PATIENT SUPPLEMEN BRONZ 2014 05 [id number] 4 ,MACI Mascorro [facility] MEDICARE PSUED Aug 02, [id number] MALIK SKI PATIENT SUPPLEMEN O 2015 02 [id number] 4 ,MACI GARCÍA MEDEX [place] MEDICARE MEDICARE PART Aug 02, PART B [id number] MALIK SKI PATIENT (WNR) (M) B 2014 39A 4 ,[place] MEDICARE MEDICARE PART Aug 02, PART B [id number] MALIK SKI PATIENT (WNR) (M) B 2014 [id number] 2 ,[place] MEDICARE MEDICARE PART Feb 01, PART A [id number] MALIK SKI PATIENT (WNR) (M) A 2012 [id number] 4 ,[place] MEDICARE MEDICARE PART Feb 01, PART A [id number] MALIK SKI PATIENT (WNR) (M) A 2012 [id number] ,[place] Selected Encounter This section includes the information on record at [place] for the Encounter. Date/Time Encounter Type Encounter Description Reason Provider Source Aug 29, 2021 09:42 Outpatient Encounter TELEPHONE CASE AM MANAGEMENT IHE Encounter Template Text not used by VA Encounter Notes: All associated encounter notes This section contains the clinical notes associated to the Encounter. Date/Time Encounter Note(s) Provider Source Aug 29, 2021 09:42 AM TRANSFER SUMMARIZATION NOTE: BERTHA TRACY [place] [facility] LOCAL TITLE: AGRICULTURAL LOAN OFFICER/OCC/HOSPITAL NOTIFICATION NOTE [facility] STANDARD TITLE: TRANSFER SUMMARIZATION NOTE DATE OF NOTE: AUG 29, 2021@09:42 ENTRY DATE: AUG 29, 2021@09:42:43 AUTHOR: BERTHA TRACY EXP COSIGNER: URGENCY: STATUS: COMPLETED AGRICULTURAL LOAN OFFICER/OCC/HOSPITAL NOTIFICAT ION NOTE Has ADDENDA TC Office is aware of this visit and will contin ue to follow . /bar/ BERTHA TRACY RN Registered Nurse Signed: 08/29/2021 09:42 09/02/2021 ADDENDUM STATUS: COMPLETED Per Z[facility] at [facility], [place] wa s DC home with services on 08/27/21, no further information is available. /bar/ BERTHA TRACY RN Registered Nurse Signed: 09/02/2021 16:04
--- OUTSIDE RECORDS SUMMARY | 2022-03-04 18:53 | XMS_ITS | Encounter Summary ---
:1950 Author Organization [facility] Address [address] [place] [address] Insurance Providers: All historical and current Section Date Range: From patient's date of to the date document was created.This section includes the names of all active insurance providers for the patient. Insurance Type of Plan Start of End of Group Member Insurance Policy P atient's Provider Coverage Name Policy Policy Number ID Provider's Weaver's Relationship Coverage Coverage Telephone Name to Policy Number Weaver [facility] MEDICARE MEDEX Aug 02, [id number] MALIK SKI PATIENT SUPPLEMEN BRONZ 2014 05 [id number] 4 ,MACI Mascorro [facility] MEDICARE PSUED Aug 02, [id number] [phone] MALIK SKI PATIENT SUPPLEMEN O 2015 02 [id number] 4 ,MACI GARCÍA MEDEX [place] MEDICARE MEDICARE PART Aug 02, PART B [id number] MALIK SKI PATIENT (WNR) (M) B 2014 [id number] 4 ,[place] MEDICARE MEDICARE PART Aug 02, PART B [id number] MALIK SKI PATIENT (WNR) (M) B 2014 [id number] 2 ,[place] MEDICARE MEDICARE PART Feb 01, PART A [id number] MALIK SKI PATIENT (WNR) (M) A 2012 [id number] 4 ,[place] MEDICARE MEDICARE PART Feb 01, PART A [id number] MALIK SKI PATIENT (WNR) (M) A 2012 [id number] ,[facility] Selected Encounter This section includes the information on record at [place] for the Encounter. Date/Time Encounter Type Encounter Description Reason Provider Source Aug 23, 2021 02:31 Outpatient Encounter TELEPHONE/GERIATRICS PM IHE Encounter Template Text not used by VA Encounter Notes: All associated encounter notes This section contains the clinical notes associated to the Encounter. Date/Time Encounter Note(s) Provider Source Aug 23, 2021 02:31 GERIATRIC MEDICINE NURSING NOTE: WENDY GUTIERREZ IN [facility] PM LOCAL TITLE: COMMUNITY [facility] SOCIAL WORK ER [place] [facility] STANDARD TITLE: GERIATRIC MEDICINE NURSING NOTE DATE OF NOTE: AUG 23, 2021@14:31 ENTRY DATE: AUG 23, 2021@14:32:14 AUTHOR: BECKY GUTIERREZ EXP COSIGNER: URGENCY: STATUS: COMPLETED CN SW was contacted by Vee, Admissions at [facility] [place], regarding a short term rehab admission for . He is cu rrently at [facility]. Vee thought they would take him under his Medicare but wanted to touch base with the VA should he need to come un [facility]ia [facility]. [place] is 100%SC and adminstratively el igible for long-term care under his VA benefit. He does not have a [facility] PCP at thi s time. Alerting product coordinator to the above. /bar/ RABIA Steinberg COMMUNITY FPCKEYMODULE ASSEMBLY MACHINE TENDER Signed: 08/23/2021 14:37 Receipt Acknowledged By: * AWAITING SIGNATURE * SCOTT MIGUEL * AWAITING SIGNATURE * DHRUV BROOKS * AWAITING SIGNATURE * CHIRAG DÍAZ
[2022-03-04 19:28] LABS: MANUAL DIFF FLAG NO
[2022-03-04 19:33] LABS: Basophils Absolute Auto 0.1 X10*3/uL (0.0-0.2); Basophils Percent Auto 0.4 % (0-2); Eosinophils Absolute Auto 0.5 X10*3/uL (0.0-0.4); Eosinophils Percent Auto 3.4 % (0-4); Hematocrit 29.7 % (42.0-52.0); Imm Gran Abs Auto 0.07 X10*3/uL (0.00-0.03); Imm Gran Pct Auto 0.5 % (0.0-0.4); Lymphocytes Absolute Auto 1.6 X10*3/uL (1.2-4.9); Lymphocytes Percent Auto 11.7 % (20-40); Mean Corpuscular HGB Conc 30.3 g/dl (31.0-36.0); Mean Corpuscular Hemoglobin 27.2 pg (27.0-33.0); Mean Corpuscular Volume 89.7 fL (80.0-98.0); Mean Platelet Volume 8.9 fL (9.4-12.4); Monocytes Absolute Auto 0.7 X10*3/uL (0.1-1.2); Monocytes Percent Auto 5.5 % (2-11); Neutrophils Absolute Auto 10.4 x10*3/uL (2.0-8.3); Neutrophils Percent Auto 78.5 % (45-73); Platelet Count 451 X10*3/uL (160-400); Red Blood Count 3.31 X10*6/uL (4.60-5.80); Red Cell Distribution Width 14.8 % (11.0-16.0); White Blood Count 13.2 X10*3/uL (4.8-10.8)
[2022-03-04 19:48] LABS: Lactic Acid 0.9 mmol/L (0.5-2.0)
[2022-03-04] MEDS: Piperacillin Sodium/Tazobactam 2.25 GM in 0.9 % Sodium Chloride 50 ML IV (19:54)
[2022-03-04 19:55] LABS: Alanine Aminotransferase < 6 U/L (0-40); Albumin Level 3.5 g/dL (3.5-5.0); Alkaline Phosphatase 77 U/L (39-117); Anion Gap 16 (12-20); Aspartate Amino Transferase 9 U/L (5-37); Bilirubin Total < 0.2 mg/dL (0.0-1.0); Blood Urea Nitrogen 29 mg/dL (9-16); Carbon Dioxide 22 mmol/L (22-29); Chloride 110 mmol/L (96-108); Creatinine Clr Calc Pharmacy 37.7; Estimated Glomerular Filt Rate 35; Glucose Random 102 mg/dL (60-115); Potassium 5.5 mmol/L (3.3-5.1); Sodium 142 mmol/L (135-145); Total Protein 6.1 g/dL (6.5-8.0)
--- NOTE | 2022-03-04 21:49 | P.HPGS_ITS ---
History of Present Illness History of Present Illness Date of Service: 03/05/22 Chief complaint: scrotal abscess Narrative: Keshav Ramos is a 72 year old male with history of prostate cancer, scrotal abscess chronic in duration at the base of scrotum for few months comes here as is tender as not getting better; took Levaquin 2 weeks ago.? No fever no shortness with a cough has? chills + seen by his PCP who instructed patient to go to the hospital for further evaluation. The ED ordered CT abd/pelvis. CT scan pertinent findings: Edema of the lower scrotum. There is a multiseptated low-density collection in the posterior aspect of the scrotum that measures at least 4.6 x 6.9 x 6.5 cm in size suspicious for scrotal abscess. No gas within the collection. Edema in the adjacent scrotal skin. PMFSH Past Medical History Medical History Falls Hematuria Hypercholesteremia Hypertension Kidney disease Macular degeneration Prostate cancer Prostate cancer Stenosis of lumbosacral spine Urgency incontinence Urgency incontinence Family History Family History Other No family history of coronary artery disease Surgical History Surgical History (Updated 03/05/22 @ 12:46 by Milagros Macdonald) History of back surgery History of penile implant History of prostate surgery Social History Social History Household Members: Spouse Housing: House Do you presently have visiting nurse or other home services: No Alcohol intake: former Patient Tobacco Use Status: Current someday Tobacco user Smoking Start Date: 06/18/61 Tobacco use type: Cigarette Cigarette Packs Per Day: 0.5 Cigarettes Per Day: 2 Years Smoked: 60 e-Cigarette/Vaping Use: Never Used Second Hand Smoke Exposure: No Advance Directives Date on File: 02/19/21 service: Yes Current occupational status: retired Meds Allergies Allergy/AdvReac Type Severity Reaction Status Date / Time No Known Allergies Allergy Verified 03/05/22 12:25 [No Known Allergies*] Active Medications: Current Medications Acetaminophen (Acetaminophen Supp 650 Mg Supp.Rect) 650 mg [place] Q6H PRN PRN Reason: Pain, Mild (Pain Scale 1-3) Dextrose/Sodium Chloride (D5ns) 1,000 mls @ 100 mls/hr IVCONT .Q10H [facility] Ampicillin Sodium/Sulbactam (Sodium 3 gm/ Sodium Chloride) 100 mls @ 200 mls/hr IV ONCE ONE Stop: 03/04/22 22:15 Oxycodone HCl (Oxycodone Hcl Immed Release 5 Mg Tablet) 5 mg PO Q6H PRN PRN Reason: Pain, Severe (Pain Scale 7-10) Sodium Chloride (0.9 % Sodium Chloride Flush 3 Ml Syringe) 3 ml IVFLUSH QSHIFT [facility] Home Medications Medication Instructions Recorded Confirmed Last Taken Type acetaminophen 325 mg tablet 650 mg PO Q6H PRN Pain 03/04/22 03/04/22 03/04/22 History ferrous gluconate 324 mg (38 mg 1 tab PO QAM 03/04/22 03/04/22 Unknown History iron) tablet Physical Exam Vital Signs: Vital Signs: Last Vital Signs Temp 97.1 F 03/04/22 18:18 Pulse 90 03/04/22 18:18 Resp 18 03/04/22 18:18 BP 150/69 H 03/04/22 18:18 Pulse Ox 100 03/04/22 18:18 O2 Del Method 03/04/22 18:18 BMI result Body Mass Index 22.4 Const: General: healthy appearing, no acute distress and well developed Orientation/consciousness: patient oriented x3 HEENT: Head: Yes normocephalic and Yes atraumatic Eyes: Conjunctivae: conjunctivae normal Neck: Neck: Yes normal visual inspection Chest: Chest palpation & inspection: normal inspection of the chest Resp: Effort & Inspection: normal respiratory effort Cardio: Rate: regular rate GI: Inspection: Yes normal to inspection Palpation (GI): Soft to palpation : Other: Scrotum - indurated, + swelling, tender, no crepitus or cellulitis rectal exam deferred for the OR Penis: normal penis Skin: General skin exam: no rashes or lesions noted Neuro: General: patient oriented x3 Extrem: General: No pedal edema Psych: Appearance: grossly normal Affect: normal affect Results Results Labs: Short CBC 03/04/22 Range/Units 19:21 WBC 13.2 H (4.8-10.8) X10*3/uL Hgb 9.0 L (14.0-18.0) g/dl Hct 29.7 L (42.0-52.0) % Plt Count 451 H D (160-400) X10*3/uL BMP 03/04/22 19:21 Sodium 142 Potassium 5.5 H Chloride 110 H Carbon Dioxide 22 BUN 29 H Creatinine 1.87 H Calcium 9.0 Liver Function 03/04/22 Range/Units 19:21 Total Bilirubin < 0.2 (0.0-1.0) mg/dL AST 9 D (5-37) U/L ALT < 6 (0-40) U/L Alkaline Phosphatase 77 D (39-117) U/L Albumin 3.5 (3.5-5.0) g/dL CT scan - pelvis: report reviewed Additional studies: Date of Service: 03/04/22 EXAMINATION: CT ABDOMEN AND PELVIS WITHOUT CONTRAST? CLINICAL INFORMATION: Scrotal swelling. Question abscess.? COMPARISON: CT abdomen pelvis 11/12/2021? TECHNIQUE: Multidetector volumetric imaging was performed from the superior aspect of the liver through the pubic symphysis. Sagittal and coronal reformatted images were obtained on the technologist's workstation.? This CT examination was performed using dose optimization techniques as appropriate, variously including the following: *Automated exposure control *Adjustment of mA and/or kV according to patient size (this includes techniques or standardized protocols for targeted exams where dose is matched to indication/reason for exam; i.e. extremities or head) *Use of iterative reconstruction technique DLP: 485 mGy-cm FINDINGS: LUNG BASES: The visualized lung bases are unremarkable.? LIVER, GALLBLADDER, AND BILIARY TREE: The liver is normal in size, shape, and attenuation. No focal hepatic lesion or biliary ductal dilatation is present. The gallbladder is unremarkable with no evidence of radiopaque gallstones, gallbladder wall thickening, or obvious pericholecystic inflammatory changes.? PANCREAS: Unremarkable.? SPLEEN: Unremarkable.? ADRENAL GLANDS: Unremarkable.? KIDNEYS AND URETERS: No hydronephrosis or renal calculi identified. Low density simple appearing bilateral renal cysts are unchanged, largest partially exophytic from the posterior right mid to lower pole measuring 4.4 cm in size. Unchanged mild symmetric bilateral perirenal fascial stranding/edema.? BLADDER: Diffusely thick-walled appearance. Limited bladder distention. No focal bladder wall thickening identified.? GASTROINTESTINAL TRACT: No dilated bowel loops. No bowel wall thickening. Normal appendix. No ascites or free air.? ABDOMINAL WALL: No significant hernia is appreciated.? LYMPH NODES: No lymphadenopathy. VASCULAR: Mildly tortuous normal caliber abdominal aorta. Extensive vascular calcifications. Ectatic right common iliac artery measuring up to 1.8 cm in diameter. No kelsy aneurysm. PELVIC VISCERA: Normal prostate gland is not seen. Redemonstrated 4 x 2.2 cm low-density collection with some peripheral mineralization the expected position of the prostate gland. The previously seen fluid-filled tracks in the left tibia history of renal fossa are no longer identified. Edema of the lower scrotum. There is a multiseptated low-density collection in the posterior aspect of the scrotum that measures at least 4.6 x 6.9 x 6.5 cm in size suspicious for scrotal abscess. No gas within the collection. Edema in the adjacent scrotal skin.? OSSEOUS STRUCTURES: Or prominent sclerosis involving the T12 vertebral body. 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 No new suspicious osseous lesion. No acute fracture. Multilevel disc degenerative change, similar to prior. Interspinous fixation at L3-L4 noted. Diffuse disc bulge and posterior disc protrusion at L3-L4 significantly narrows the spinal canal as on prior. IMPRESSION: 1.? 4.6 x 6.9 x 6.5 cm multiseptated low-density collection in the scrotum suspicious for scrotal abscess. No gas within the collection. 2.? Redemonstrated 4 x 2.2 cm low-density collection in the expected position of the prostate gland. Correlate with surgical history. 3.? No acute intra-abdominal process identified. 4.? Increased sclerosis of the T12 lesion. Correlate with history of malignancy. Consider whole body bone scan and correlation with PSA. Assessment and Plan (1) Abscess of scrotum: Status: Acute (2) Prostate cancer: Status: Acute CT findings:Normal prostate gland is not seen. Redemonstrated 4 x 2.2 cm low-density collection with some peripheral mineralization the expected position of the prostate gland. CT imaging reviewed with Radiologist - this is a chronic findings and acturally collections is smaller compared to November, imaging Plan IV Abx Incision and drainage Medicine consult for medical management Quality Stroke Does the patient have a stroke diagnosis?: No VTE Prior VTE?: No VTE Risk Level:: Surgical - low VTE Device Contraindication: N/A - Device Ordered VTE Drug Contraindication: Treatment Not Indicated Procedures Date of Service Date of Service: 03/04/22
--- NOTE | 2022-03-04 21:49 | PHA.MEDREC ---
Pharmacy Consult ? Medication Reconciliation Pharmacy has completed the medication reconciliation. Patient reports taking a lot of tylenol recently. Patient had picture of current medications. Reports those are the only 3. Shilpa Rivera, PharmD
[2022-03-04 22:08] LABS: COVID-19 Test Negative (Negative)
[2022-03-04 22:09] VITALS: BP 113/57; PULSE 100; RESP 16; TEMP 37; O2SAT 100
[2022-03-04] MEDS: Dextrose 5 % and 0.9 % NaCl 1,000 ML 100 ML IVCONT (22:29)
[2022-03-05] VITALS (14 sets, daily range): BP systolic 98–132; BP diastolic 46–61; PULSE 73–89; RESP 16–18; TEMP 36.3–37.1; O2SAT 95–100
--- NOTE | 2022-03-05 00:01 | P.CONHOSP_ITS ---
History of Present Illness Data of Consult Service Date: 03/05/22 Primary Care Provider: JYOTI Martinez HPI Reason for consult: Medical management 72-year-old male with history of prostate cancer, CKD, HTN, thrombocytopenia, PAD, history of urinary incontinence secondary to radiating therapy presents to the hospital with complaints of significant swelling in his scrotum area. Reports that the swelling started awhile back but about 2 weeks ago started worsening, with significant pain worse with sitting down and or standing and walking. Pain is 10/10 on sitting, improves when he lays down on his side. He denies any fever or chills, denies any urinary frequency although reports urinary incontinence but has no dysuria or urgency. Reports no abdominal pain, no nausea or vomiting, no diarrhea constipation, no chest pain, no shortness of breath. No headache or change in vision. Patient had back surgery about 2 weeks ago secondary to disc rupture Per last urology note patient was to be started on terazosin and GnRH for 6 weeks post his surgery. On arrival to the ED patient hemodynamically stable with no significant abnormal vitals Labs are significant for WBC count of 9.7, hemoglobin of 9.0 with a hematocrit of 29.7 which is his chronic baseline, potassium of 5.5, chloride of 110, cre atinine of 1.87 with similar baseline in the past, Abdomen pelvic CT shows a 4.6 x 6.9 x 6.5 cm multi-septated low-density collection in the scrotum suspicious for scrotal abscess, no gas within the collection. No acute intra-abdominal process, increased sclerosis of the T12 lesion PMFSH Medical History [place] Hematuria Hypercholesteremia Hypertension Kidney disease Macular degeneration Prostate cancer Prostate cancer Stenosis of lumbosacral spine Urgency incontinence Urgency incontinence Family History Other No family history of coronary artery disease Surgical History History of back surgery History of penile implant History of prostate surgery Social History Household Members: Spouse Housing: House Do you presently have visiting nurse or other home services: No Alcohol intake: former Patient Tobacco Use Status: Current everyday Tobacco user Smoking Start Date: 06/18/61 Tobacco use type: Cigarette Cigarette Packs Per Day: 0.5 Cigarettes Per Day: 6 e-Cigarette/Vaping Use: Never Used Second Hand Smoke Exposure: No Advance Directives: Yes Advance Directives on File: Yes Advance Directives Date on File: 02/19/21 service: Yes Current occupational status: retired Meds Allergies Allergy/AdvReac Type Severity Reaction Status Date / Time No Known Allergies Allergy Verified 01/30/22 14:00 [No Known Allergies*] Active Medications: Current Medications Acetaminophen (Acetaminophen Supp 650 Mg Supp.Rect) 650 mg RI Q6H PRN PRN Reason: Pain, Mild (Pain Scale 1-3) Dextrose/Sodium Chloride (D5ns) 1,000 mls @ 100 mls/hr IVCONT .Q10H [facility] Last Admin: 03/04/22 22:29 Dose: 100 mls/hr Ampicillin Sodium/Sulbactam (Sodium 3 gm/ Sodium Chloride) 100 mls @ 200 mls/hr IV ONCE ONE Stop: 03/05/22 02:29 Piperacillin Sod/Tazobactam (Sod 3.375 gm/ Sodium Chloride) 50 mls @ 100 mls/hr IV Q6H [facility] Oxycodone HCl (Oxycodone Hcl Immed Release 5 Mg Tablet) 5 mg PO Q6H PRN PRN Reason: Pain, Severe (Pain Scale 7-10) Sodium Chloride (0.9 % Sodium Chloride Flush 3 Ml Syringe) 3 ml IVFLUSH QSHIFT [facility] Home Medications Medication Instructions Recorded Confirmed Last Taken Type acetaminophen 325 mg tablet 650 mg PO Q6H PRN Pain 03/04/22 03/04/22 03/04/22 History ferrous gluconate 324 mg (38 mg 1 tab PO QAM 03/04/22 03/04/22 Unknown History iron) tablet Physical Exam Vital Signs and Narrative: Vital Signs: Last Vital Signs Temp 98.6 F 03/04/22 22:09 Pulse 100 03/04/22 22:09 Resp 16 03/04/22 22:09 BP 113/57 L 03/04/22 22:09 Pulse Ox 100 03/04/22 22:09 O2 Del Method 03/04/22 22:09 BMI result Body Mass Index 22.4 Const: General: cooperative and no acute distress Orientation/consciousness: patient oriented x3 Eyes: General: appearance normal, both eyes and all related structures Resp: Effort & Inspection: normal respiratory effort Auscultation: clear to auscultation bilaterally Cardio: Rate: regular rate Rhythm: regular rhythm GI: Palpation (GI): Soft to palpation Auscultation: normal bowel sounds : Other: Swelling in the scrotum region, tender Skin: General skin exam: no rashes or lesions noted Neuro: General: patient oriented x3 Cognition (Neuro): normal cognition Extrem: General: Yes normal to inspection and Yes no pedal edema Results Labs CBC and Chem 7: 03/05/22 04:55 03/05/22 04:55 Labs: Laboratory Results - last 24 hr 03/04/22 03/04/22 03/04/22 19:21 19:21 19:21 MCV 89.7 MCH 27.2 MCHC 30.3 L RDW 14.8 Plt Count 451 H D MPV 8.9 L Immature Gran % (Auto) 0.5 H Neut % (Auto) 78.5 H Lymph % (Auto) 11.7 L [place] % (Auto) 5.5 Eos % (Auto) 3.4 Baso % (Auto) 0.4 Lymph # (Auto) 1.6 [place] # (Auto) 0.7 Eos # (Auto) 0.5 H Baso # (Auto) 0.1 Abs Immat Gran (auto) 0.07 H Absolute Neuts (auto) 10.4 H Absolute Nucleated RBC 0.000 Nucleated RBC % (auto) 0.0 Anion Gap 16 Estim Creat Clear Calc 37.7 Estimated GFR 35 Random Glucose 102 Lactic Acid 0.9 Calcium 9.0 Total Bilirubin < 0.2 AST 9 D ALT < 6 Alkaline Phosphatase 77 D Total Protein 6.1 L Albumin 3.5 COVID-19 ([facility]) COVID-19 Clin Com 03/04/22 21:18 MCV MCH MCHC RDW Plt Count MPV Immature Gran % (Auto) Neut % (Auto) Lymph % (Auto) [place] % (Auto) Eos % (Auto) Baso % (Auto) Lymph # (Auto) [place] # (Auto) Eos # (Auto) Baso # (Auto) Abs Immat Gran (auto) Absolute Neuts (auto) Absolute Nucleated RBC Nucleated RBC % (auto) Anion Gap Estim Creat Clear Calc Estimated GFR Random Glucose Lactic Acid Calcium Total Bilirubin AST ALT Alkaline Phosphatase Total Protein Albumin COVID-19 ([facility]) Negative COVID-19 Clin Com See Note Imaging Radiologist's Impressions: Impressions Abdomen/Pelvis CT 03/04/22 19:18 IMPRESSION: 1. 4.6 x 6.9 x 6.5 cm multiseptated low-density collection in the scrotum suspicious for scrotal abscess. No gas within the collection. 2. Redemonstrated 4 x 2.2 cm low-density collection in the expected position of the prostate gland. Correlate with surgical history. 3. No acute intra-abdominal process identified. 4. Increased sclerosis of the T12 lesion. Correlate with history of malignancy. Consider whole body bone scan and correlation with PSA. Additional ancillary findings, as described. Assessment and Plan (1) Abscess of scrotum: Status: Acute (2) Prostate cancer: Status: Acute (3) CKD (chronic kidney disease) stage 3, GFR 30-59 ml/min: Status: Acute (4) Spinal surgery in prior 3 months: Status: Acute Plan 72-year-old male with past medical history of prostate cancer, currently being followed by Urology presents to the hospital with complaints of swelling in the scrotum found to have scrotal abscess We are seen in consult for medical management # scrotal abscess - patient given 1 dose of Unasyn by Urology, will continue Zosyn pending urological procedure in a.m. - will follow cultures along with Urology # history of prostate cancer - management per urology team - per Urology outpatient note patient was to be started on hormonal therapy post his back surgery - continue finasteride # spinal surgery - secondary to disc rupture - patient does have sclerotic lesion of T12 concerning for possible malignancy with metastasis - patient following urology, recommend follow-up with surgeon as well as Hematology-Oncology ( previously seen Dr. Dickerson) # thrombocytopenia - stable platelet count - follow CBC # CKD - baseline - continue to monitor BMP Thank you for this consult, will continue to follow patient along with you
--- NOTE | 2022-03-05 05:00 | ECG_ITS ---
Test Reason : ABSCESS Blood Pressure : / mmHG Vent. Rate : 101 BPM Atrial Rate : 101 BPM P-R Int : 158 ms QRS Dur : 084 ms QT Int : 368 ms P-R-T Axes : 062 071 054 degrees QTc Int : 477 ms Sinus tachycardia Low voltage QRS RSR' or QR pattern in V1 suggests right ventricular conduction delay Abnormal ECG When compared with ECG of 12-NOV-2021 18:29, No significant changes seen Referred By: Trcaie Fleming Electronically Signed By:NGA MON[place] MD
[2022-03-05 05:29] LABS: MANUAL DIFF FLAG NO
[2022-03-05 05:30] LABS: Basophils Percent Auto 0.4 % (0-2); Eosinophils Absolute Auto 0.6 X10*3/uL (0.0-0.4); Eosinophils Percent Auto 6.5 % (0-4); Hematocrit 27.1 % (42.0-52.0); Hemoglobin 8.1 g/dl (14.0-18.0); Imm Gran Abs Auto 0.04 X10*3/uL (0.00-0.03); Imm Gran Pct Auto 0.4 % (0.0-0.4); Lymphocytes Absolute Auto 1.3 X10*3/uL (1.2-4.9); Lymphocytes Percent Auto 13.9 % (20-40); Mean Corpuscular HGB Conc 29.9 g/dl (31.0-36.0); Mean Corpuscular Hemoglobin 26.7 pg (27.0-33.0); Mean Corpuscular Volume 89.4 fL (80.0-98.0); Mean Platelet Volume 9.2 fL (9.4-12.4); Monocytes Absolute Auto 0.6 X10*3/uL (0.1-1.2); Monocytes Percent Auto 6.4 % (2-11); Neutrophils Percent Auto 72.4 % (45-73); Platelet Count 403 X10*3/uL (160-400); Red Blood Count 3.03 X10*6/uL (4.60-5.80); Red Cell Distribution Width 14.7 % (11.0-16.0); White Blood Count 9.7 X10*3/uL (4.8-10.8)
[2022-03-05 05:52] LABS: Anion Gap 16 (12-20); Blood Urea Nitrogen 26 mg/dL (9-16); Calcium 8.6 mg/dL (8.4-10.2); Carbon Dioxide 21 mmol/L (22-29); Chloride 110 mmol/L (96-108); Creatinine Clr Calc Pharmacy 45.3; Estimated Glomerular Filt Rate 44; Glucose Random 90 mg/dL (60-115); Potassium 4.6 mmol/L (3.3-5.1); Sodium 142 mmol/L (135-145)
[2022-03-05] MEDS: Piperacillin Sodium/Tazobactam 2.25 GM in 0.9 % Sodium Chloride 50 ML IV ×4 (05:53→23:22)
[2022-03-05] MEDS: Finasteride 5 MG TABLET PO (09:48)
--- NOTE | 2022-03-05 10:32 | PC.NURSE ---
REPORT GIVEN TO SSS. PIV REPLACED, #20 IN [facility]. PT INCONTINENT OF URINE. [place] CATH IN PLACE. PT IN NAD AT THIS TIME.
--- NOTE | 2022-03-05 11:23 | MHC.CM.PN ---
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 Patient uses a cane and home/self care is the goal. CM has initiated and will follow for dc planning. Patient has received no Covid vax and his PCP is Dr. Jose G Dickerson.IMM addressed.
--- NOTE | 2022-03-05 13:01 | HO.ANESPROP2 ---
HPI - Anesthesia Eval Consult details Narrative: 72 yo male patient for I&D of scrotal abscess PMFSH Active Problems Active Problems: All Active Problems (Updated 03/04/22 @ 21:50 by Tracie Fleming MD) Urgency of micturition (Acute) Nocturia more than twice per night (Acute) Urinary urgency (Acute) PAD (peripheral artery disease) (Acute) Closed traumatic nondisplaced fracture of phalanx of toe (Acute) Thrombocytopenia (Acute) CKD (chronic kidney disease) stage 3, GFR 30-59 ml/min (Acute) Radiation cystitis (Acute) Physical deconditioning (Acute) Abscess of scrotum (Acute) Spinal surgery in prior 3 months (Acute) Prostate cancer (Acute) Urgency incontinence (Acute) Hypertension (Acute) Occasional smoker. Denies h/o COPD or inhaler use Past Medical History Medical History (Updated 03/05/22 @ 14:07 by Marlena Coyle MD) Falls Hematuria Hypercholesteremia Hypertension Kidney disease Macular degeneration Prostate cancer Prostate cancer Stenosis of lumbosacral spine Urgency incontinence Family History Family History Other No family history of coronary artery disease Family history of problems with anesthesia: No Surgical History Surgical History (Updated 03/05/22 @ 12:46 by Milagros Macdonald) History of back surgery History of penile implant History of prostate surgery History of Problems with Anesthesia: No Social History Social History Household Members: Spouse Housing: House Do you presently have visiting nurse or other home services: No Alcohol intake: former Patient Tobacco Use Status: Current someday Tobacco user Smoking Start Date: 06/18/61 Tobacco use type: Cigarette Cigarette Packs Per Day: 0.5 Cigarettes Per Day: 2 Years Smoked: 60 e-Cigarette/Vaping Use: Never Used Second Hand Smoke Exposure: No Advance Directives Date on File: 02/19/21 service: Yes Current occupational status: retired [employer] Allergies Allergy/AdvReac Type Severity Reaction Status Date / Time No Known Allergies Allergy Verified 03/05/22 12:25 [No Known Allergies*] Active Medications: Current Medications Acetaminophen (Acetaminophen Supp 650 Mg Supp.Rect) 650 mg [place] Q6H PRN PRN Reason: Pain, Mild (Pain Scale 1-3) Acetaminophen (Acetaminophen 325 Mg Tablet) 650 mg PO Q6H PRN PRN Reason: Pain, Moderate (Pain Scale 4-6 Finasteride (Finasteride 5 Mg Tablet) 5 mg PO DAILY [facility] Last Admin: 03/05/22 09:48 Dose: 5 mg Dextrose/Sodium Chloride (D5ns) 1,000 mls @ 100 mls/hr IVCONT .Q10H [facility] Last Admin: 03/05/22 09:47 Dose: Not Given Piperacillin Sod/Tazobactam (Sod 2.25 gm/ Sodium Chloride) 50 mls @ 100 mls/hr IV Q6H [facility] Last Admin: 03/05/22 13:01 Dose: 100 mls/hr Non-Formulary Medication (Fesoterodine) 4 mg PO DAILY [facility] Oxycodone HCl (Oxycodone Hcl Immed Release 5 Mg Tablet) 5 mg PO Q6H PRN PRN Reason: Pain, Severe (Pain Scale 7-10) Sodium Chloride (0.9 % Sodium Chloride Flush 3 Ml Syringe) 3 ml IVFLUSH QSHIFT [facility] Last Admin: 03/05/22 09:48 Dose: Not Given Home Medications Medication Instructions Recorded Confirmed Last Taken Type acetaminophen 325 mg tablet 650 mg PO Q6H PRN Pain 03/04/22 03/04/22 03/04/22 History ferrous gluconate 324 mg (38 mg 1 tab PO QAM 03/04/22 03/04/22 Unknown History iron) tablet Exam Exam Date and Time: March 05, 2022 1301 Height,Weight and Vital Signs: Height 6 ft 1 in Weight 77.111 kg Last Vital Signs Temp 98.6 F 03/05/22 12:28 Pulse 73 03/05/22 12:28 Resp 16 03/05/22 12:28 BP 118/46 L 03/05/22 12:28 Pulse Ox 100 03/05/22 12:28 O2 Del Method 03/05/22 12:28 Pertinent Lab Results Pertinent Lab Results: Laboratory Tests 03/04/22 03/04/22 03/04/22 19:21 19:21 19:21 WBC 13.2 H RBC 3.31 L Hgb 9.0 L Hct 29.7 L MCV 89.7 MCH 27.2 MCHC 30.3 L RDW 14.8 Plt Count 451 H D MPV 8.9 L Immature Gran % (Auto) 0.5 H Neut % (Auto) 78.5 H Lymph % (Auto) 11.7 L [place] % (Auto) 5.5 Eos % (Auto) 3.4 Baso % (Auto) 0.4 Lymph # (Auto) 1.6 Norton # (Auto) 0.7 Eos # (Auto) 0.5 H Baso # (Auto) 0.1 Abs Immat Gran (auto) 0.07 H Absolute Neuts (auto) 10.4 H Absolute Nucleated RBC 0.000 Nucleated RBC % (auto) 0.0 Sodium 142 Potassium 5.5 H Chloride 110 H Carbon Dioxide 22 Anion Gap 16 BUN 29 H Creatinine 1.87 H Estim Creat Clear Calc 37.7 Estimated GFR 35 Random Glucose 102 Lactic Acid 0.9 Calcium 9.0 Total Bilirubin < 0.2 AST 9 D ALT < 6 Alkaline Phosphatase 77 D Total Protein 6.1 L Albumin 3.5 COVID-19 (SHARAD) COVID-19 Exanet 03/04/22 03/05/22 03/05/22 21:18 04:55 04:55 WBC 9.7 RBC 3.03 L Hgb 8.1 L Hct 27.1 L MCV 89.4 MCH 26.7 L MCHC 29.9 L RDW 14.7 Plt Count 403 H MPV 9.2 L Immature Gran % (Auto) 0.4 Neut % (Auto) 72.4 Lymph % (Auto) 13.9 L Norton % (Auto) 6.4 Eos % (Auto) 6.5 H Baso % (Auto) 0.4 Lymph # (Auto) 1.3 Norton # (Auto) 0.6 Eos # (Auto) 0.6 H Baso # (Auto) 0.0 Abs Immat Gran (auto) 0.04 H Absolute Neuts (auto) 7.0 Absolute Nucleated RBC 0.000 Nucleated RBC % (auto) 0.0 Sodium 142 Potassium 4.6 Chloride 110 H Carbon Dioxide 21 L Anion Gap 16 BUN 26 H Creatinine 1.56 H Estim Creat Clear Calc 45.3 Estimated GFR 44 Random Glucose 90 Lactic Acid Calcium 8.6 Total Bilirubin AST ALT Alkaline Phosphatase Total Protein Albumin COVID-19 (SHARAD) Negative COVID-19 Clin Com See Note Airway Mallampati Class: II TM Dist: >3cm Neck ROM: Full Denture: Upper Partial: Lower Loose/Missing/Broken Teeth: Yes (Denies broken or loose teeth) Heart: RRR Lungs: Bilateral wheezes. Still some wheezing post albuterol treatment Assessment and Plan Assessment Anesthesia Assessment: Anesthesia Plan Discussed and Chart Reviewed Final Anesthetic Review Family History of Problems with Anesthesia: No History of Problems with Anesthesia: No NPO: Yes ASA Class: III Final Preanesthetic Review: No Changes in Pt Med Stat, Meds/Allgs Chart Reviewed, Consent Obtained/Reviewed and Anes Risks/Benef Reviewed Patient Risk: Intermediate Procedure Risk: Low Assessment/Block/Sedation in SS: Assess/Block/Sedation-SS Anesthetic Plan Anesthetic Plan: GA Disposition: Standard PACU
[2022-03-05] MEDS: Lactated Ringers 1,000 ML 100 ML IVCONT (13:06)
[2022-03-05] MEDS: Albuterol Sulfate (0.083%) 2.5 MG/3 ML VIAL.NEB INHALE (13:22)
--- NOTE | 2022-03-05 14:16 | W.PM.OPN ---
Operative Note Operative Note Date of Service: 03/05/22 Narrative: PREOP DIAGNOSIS: Scrotal Abscess POSTOP DIAGNOSIS: Scrotal Abscess PROCEDURE: Incision and Drainage Scrotal Abscess Indications: Keshav Ramos is a 72 year old male with history of prostate cancer, with complaints of scrotal swelling not getting better; took Levaquin [address] scan pertinent findings:? Edema of the lower scrotum. There is a multiseptated low-density collection in the posterior aspect of the scrotum that measures at least 4.6 x 6.9 x 6.5 cm in size suspicious for scrotal abscess. No gas within the collection. Edema in the adjacent scrotal skin. Details of procedure: The patient was brought into the operating room placed on the OR table in supine position. Abx administered IV. General anesthesia was administered. The patient was repositioned into lithotomy position, prepped and draped in the usual sterile fashion. Time-out was done per protocol. A rectal exam was done, no prostate bogginess or perineal thickening or induration. Gloves were changed. An incision was made in the inferior portion of the right hemiscrotum, pus immediately was noted Cultures obtained, finger dissection superiorly and towards the left hemiscrotum. Saline irrigation. Iodoform packing on the right and left hemiscrotum. Dressing applied. The patient was brought out of anesthesia and taken to recovery in stable condition. Complications: None Drains: None
--- NOTE | 2022-03-05 14:36 | PM.EVENT ---
Event Note Date of Service: 03/05/22 Event Note: 72-year-old male with past medical history of prostate cancer, currently being followed by Urology presents to the hospital with complaints of swelling in the scrotum found to have scrotal abscess We are seen in consult for medical management scrotal abscess Status post I&D today Zosyn History of prostate cancer Management as per urology team spinal surgery secondary to disc rupture patient does have sclerotic lesion of T12 concerning for possible malignancy with metastasis patient following urology, recommend follow-up with surgeon as well as Hematology-Oncology ( previously seen Dr. Dickerson) thrombocytopenia stable platelet count follow CBC CKD 3 baseline continue to monitor BMP
[2022-03-05] MEDS: Dextrose 5 % and 0.9 % NaCl 1,000 ML 100 ML IVCONT (18:58)
[2022-03-05] MEDS: Sodium Bicarbonate 650 MG TABLET PO (20:44)
[2022-03-06 02:39] VITALS: BP 115/71; PULSE 80; RESP 16; TEMP 36.6; O2SAT 97
[2022-03-06] MEDS: Dextrose 5 % and 0.9 % NaCl 1,000 ML 100 ML IVCONT (03:36)
[2022-03-06] MEDS: Piperacillin Sodium/Tazobactam 2.25 GM in 0.9 % Sodium Chloride 50 ML IV ×4 (05:24→23:40)
[2022-03-06 07:34] VITALS: BP 120/57; PULSE 82; RESP 18; TEMP 36.1; O2SAT 97
[2022-03-06] MEDS: Sodium Bicarbonate 650 MG TABLET PO ×2 (07:37→20:14)
[2022-03-06] MEDS: Finasteride 5 MG TABLET PO (07:38)
[2022-03-06] MEDS: 0.9 % Sodium Chloride Flush 3 ML SYRINGE IVFLUSH ×3 (07:38→20:14)
--- NOTE | 2022-03-06 08:39 | P.PNUR_ITS ---
Subjective Subjective Date of Service: 03/06/22 Patient reports: feels better Interval history: Keshav Ramos is a 72 year old male with history of prostate cancer, scrotal abscess chronic in duration at the base of scrotum for few months took Levaquin 2 weeks ago, prior to presenting to the ED.? CT scan pertinent findings:? Edema of the lower scrotum. There is a multiseptated low-density collection in the posterior aspect of the scrotum that measures at least 4.6 x 6.9 x 6.5 cm in size suspicious for scrotal abscess. No gas within the collect ion. Edema in the adjacent scrotal skin. s/p Incision and drainage of scrotal abscess 03/05/22, wound packed with iodoform packing. 03/06/22 - bedside dressing change, wound is clean scrotal skin mild induration, no cellulitis. Will cont IV Abx Plan for DC 03/07/22 with VNA services and fu with Wound care for outpatient consultation Physical Exam Vital Signs: Vital Signs: Last Vital Signs Temp 97.0 F 03/06/22 07:34 Pulse 82 03/06/22 07:34 Resp 18 03/06/22 07:34 BP 120/57 L 03/06/22 07:34 Pulse Ox 97 03/06/22 07:34 O2 Del Method 03/06/22 07:34 BMI result Body Mass Index 22.4 Const: General: no acute distress and well developed Orientation/consciousness: patient oriented x3 HEENT: Head: Yes normocephalic and Yes atraumatic Eyes: Conjunctivae: conjunctivae normal Neck: Neck: Yes normal visual inspection Chest: Chest palpation & inspection: normal inspection of the chest Resp: Effort & Inspection: normal respiratory effort Cardio: Rate: regular rate GI: Inspection: Yes normal to inspection Palpation (GI): Soft to palpation : Other: scrotum - induration improved, wound clean, dressing change at bedside Penis: normal penis Neuro: General: patient oriented x3 Extrem: General: No pedal edema Psych: Appearance: grossly normal Affect: normal affect Urology Results Labs CBC & Chem 7: 03/06/22 08:58 03/06/22 08:58 Progress Note: A&P Assessment and plan (1) Scrotal abscess: Status: Acute (2) Urgency incontinence: Status: Acute Plan s/p Incision and drainage of scrotal abscess 03/05/22, wound packed with iodoform packing. 03/06/22 - bedside dressing change, wound is clean scrotal skin mild induration, no cellulitis. Will cont IV Abx. Cont on PO Abx on discharge Plan for DC 03/07/22 with VNA services and fu with Wound care for outpatient consultation [place] [facility] for urinary incontinence. Time Spent With Patient Time: Total time spent is greater than 50% in coordination of care (as documented) at patient's floor/unit and/or counseling patient: Progress Note: Quality Stroke Does the patient have a stroke diagnosis?: No
[2022-03-06 09:09] LABS: Hematocrit 25.8 % (42.0-52.0); Hemoglobin 7.7 g/dl (14.0-18.0); Mean Corpuscular HGB Conc 29.8 g/dl (31.0-36.0); Mean Corpuscular Hemoglobin 26.8 pg (27.0-33.0); Mean Corpuscular Volume 89.9 fL (80.0-98.0); Mean Platelet Volume 8.9 fL (9.4-12.4); Platelet Count 371 X10*3/uL (160-400); Red Blood Count 2.87 X10*6/uL (4.60-5.80); Red Cell Distribution Width 14.7 % (11.0-16.0)
[2022-03-06 09:26] LABS: Anion Gap 13 (12-20); Blood Urea Nitrogen 18 mg/dL (9-16); Calcium 8.1 mg/dL (8.4-10.2); Carbon Dioxide 23 mmol/L (22-29); Chloride 112 mmol/L (96-108); Estimated Glomerular Filt Rate 48; Glucose Random 99 mg/dL (60-115); Potassium 4.3 mmol/L (3.3-5.1); Sodium 144 mmol/L (135-145)
[2022-03-06 11:17] VITALS: BP 110/55; PULSE 82; RESP 18; TEMP 36.7; O2SAT 96
--- NOTE | 2022-03-06 12:45 | MHC.CM.PN ---
Addendum entered by Margarita Mcduffie 03/07/22 16:18: RN AWARE PT WILL NEED TO DC WITH SUPPLIES FOR DRESSING [facility]NA INFORMED PT DC VIA [facility] Addendum entered by Margarita Mcduffie 03/07/22 11:16: PLAN IS FOR PT TO DC HOME TODAY WITH [facility] FOR [facility] FAMILY TO TRANSPORT Original Note: CM INFORMED PT EXPECTED TO DC TOMORROW AND WILL NEED [facility] TO BE SEEN ON THURSDAY REFERRAL MADE TO [facility] AND THEY HAVE CONFIRMED THEY WILL PROVIDE SOC ON THURSDAY PT TO DC HOME TOMORROW WITH [facility] FOR [facility]P SERVICES
--- NOTE | 2022-03-06 12:52 | HO.POSTANES ---
Post Anesthesia Evaluation Post Anesthesia Evaluation Vital Signs: Vital Signs Temp Pulse Resp BP Pulse Ox O2 Del Method 03/06/22 11:17 98.1 F 82 18 110/55 L 96 Room Air 03/06/22 07:34 97.0 F 82 18 120/57 L 97 Room Air 03/06/22 02:39 97.9 F 80 16 115/71 97 Room Air Anesthesia: General Mental Status: Awake Pain Control: Satisfactory Nausea/Vomiting: None Hydration: Adequate Anesthesia-Related Issues: No Anes. Related Issues
[2022-03-06 15:24] VITALS: BP 114/62; PULSE 87; RESP 17; TEMP 36.6; O2SAT 98
[2022-03-06] MEDS: oxyCODONE HCl Immed Release 5 MG TABLET PO (16:04)
--- NOTE | 2022-03-06 17:37 | HO.PM.IMPN ---
Subjective Subjective Date of Service: 03/06/22 Interval History: seen and examined this morning follow up consult for scrotal abscess pain controlled, no fever, chills today Review of Systems Review of Systems: Yes all other systems are reviewed and are negative Constitutional Constitutional: Denies chills and Denies fever(s) Cardiovascular Cardiovascular: Denies chest pain, Denies palpitations and Denies dyspnea Respiratory Respiratory: Denies cough and Denies dyspnea Gastrointestinal Gastrointestinal: Denies abdominal pain, Denies nausea and Denies vomiting Endocrine Endocrine: Denies palpitations Physical Exam Vital Signs: Vital Signs: Last Vital Signs Temp 97.8 F 03/06/22 15:24 Pulse 87 03/06/22 15:24 Resp 17 03/06/22 15:24 BP 114/62 03/06/22 15:24 Pulse Ox 98 03/06/22 15:24 O2 Del Method 03/06/22 15:24 BMI result Body Mass Index 22.4 Const: General: cooperative, comfortable, alert and awake Nutritional Appearance: average body habitus Orientation/consciousness: patient oriented x3 Resp: Effort & Inspection: normal respiratory effort and able to speak in complete sentences Auscultation: clear to auscultation bilaterally Cardio: Rate: regular rate Heart sounds: S1 normal heart sound present and S2 normal heart sound present GI: Inspection: No distended Palpation (GI): Soft to palpation and nontender Neuro: General: patient oriented x3 and CN's II-XI intact bilaterally Extrem: General: Yes no pedal edema Objective Data Active Medications Acetaminophen (Acetaminophen Supp 650 Mg Supp.Rect) 650 mg [place] Q6H PRN PRN Reason: Pain, Mild (Pain Scale 1-3) Acetaminophen (Acetaminophen 325 Mg Tablet) 650 mg PO Q6H PRN PRN Reason: Pain, Moderate (Pain Scale 4-6 Finasteride (Finasteride 5 Mg Tablet) 5 mg PO DAILY [facility] Last Admin: 03/06/22 07:38 Dose: 5 mg Documented By: FRANCK Piperacillin Sod/Tazobactam (Sod 2.25 gm/ Sodium Chloride) 50 mls @ 100 mls/hr IV Q6H [facility] Last Infusion: 03/06/22 13:13 Dose: 0 mls/hr Documented By: FRANCK Non-Formulary Medication (Fesoterodine) 4 mg PO DAILY [facility] Oxycodone HCl (Oxycodone Hcl Immed Release 5 Mg Tablet) 5 mg PO Q6H PRN PRN Reason: Pain, Severe (Pain Scale 7-10) Last Admin: 03/06/22 16:04 Dose: 5 mg Documented By: FRANCK Sodium Bicarbonate (Sodium Bicarbonate 650 Mg Tablet) 650 mg PO BID [facility] Last Admin: 03/06/22 07:37 Dose: 650 mg Documented By: FRANCK Sodium Chloride (0.9 % Sodium Chloride Flush 3 Ml Syringe) 3 ml IVFLUSH QSHIFT [facility] Last Admin: 03/06/22 07:38 Dose: 3 ml Documented By: FRANCK Labs CBC & Chem 7: 03/06/22 08:58 03/06/22 08:58 Labs: Laboratory Results - last 24 hr 03/06/22 03/06/22 08:58 08:58 MCV 89.9 MCH 26.8 L MCHC 29.8 L RDW 14.7 Plt Count 371 MPV 8.9 L Absolute Nucleated RBC 0.000 Nucleated RBC % (auto) 0.0 Anion Gap 13 Estim Creat Clear Calc 49.0 Estimated GFR 48 Random Glucose 99 Calcium 8.1 L Microbiology Microbiology Results: Microbiology 03/05/22 Unknown Gram Stain - Final Scrotum Routine Culture - Preliminary No growth to date. 03/05/22 Unknown Gram Stain - Final Scrotum Routine Culture - Preliminary No growth to date. 03/04/22 19:21 Blood Culture - Preliminary Blood - Venous No growth after 24 hours. 03/04/22 19:21 Blood Culture - Preliminary Blood - Venous No growth after 24 hours. Assessment and Plan (1) Scrotal abscess: Status: Acute (2) Prostate cancer: Status: Acute Plan 72-year-old male with past medical history of prostate cancer, currently being followed by Urology presents to the hospital with complaints of swelling in the scrotum found to have scrotal abscess We are seen in consult for medical management scrotal abscess s/p I&D on zosyn management per urology history of prostate cancer management per urology team spinal surgery secondary to disc rupture patient does have sclerotic lesion of T12 concerning for possible malignancy with metastasis patient following urology, recommend follow-up with surgeon as well as Hematology-Oncology ( previously seen Dr. Dickerson) thrombocytopenia - stable platelet count - follow CBC Acute on chronic normocytic Anemia H/H drifting down no obvious bleeding noted -follow CBC -consider transfusion if drop further CKD4 renal function within baseline Thank you for this consult, will continue to follow patient along with you Quality Stroke Does the patient have a stroke diagnosis?: No VTE Prior VTE?: No VTE Risk Level:: Surgical - low VTE Device Contraindication: N/A - Device Ordered VTE Drug Contraindication: Treatment Not Indicated
[2022-03-06 19:13] VITALS: BP 114/56; PULSE 76; RESP 17; TEMP 36.2; O2SAT 98
[2022-03-07] VITALS: BP 101/55; PULSE 80; RESP 17; TEMP 36.3; O2SAT 96
[2022-03-07 03:56] VITALS: BP 108/68; PULSE 74; RESP 17; TEMP 36.7; O2SAT 95
[2022-03-07] MEDS: Piperacillin Sodium/Tazobactam 2.25 GM in 0.9 % Sodium Chloride 50 ML IV ×2 (06:01→11:15)
[2022-03-07 07:13] LABS: Hematocrit 25.5 % (42.0-52.0); Hemoglobin 7.3 g/dl (14.0-18.0); Mean Corpuscular HGB Conc 28.6 g/dl (31.0-36.0); Mean Corpuscular Hemoglobin 26.2 pg (27.0-33.0); Mean Corpuscular Volume 91.4 fL (80.0-98.0); Mean Platelet Volume 9.4 fL (9.4-12.4); Platelet Count 346 X10*3/uL (160-400); Red Blood Count 2.79 X10*6/uL (4.60-5.80); Red Cell Distribution Width 14.6 % (11.0-16.0); White Blood Count 6.9 X10*3/uL (4.8-10.8)
[2022-03-07 07:37] LABS: Iron 38 mcg/dL (45-160); Percent Iron Saturation 18 % (15-50); Total Iron Binding Capacity 211 mcg/dL (228-428); Unsaturated Iron Binding 173 ug/dL
[2022-03-07 07:41] VITALS: BP 107/51; PULSE 78; RESP 18; TEMP 36.3; O2SAT 97
[2022-03-07] MEDS: oxyCODONE HCl Immed Release 5 MG TABLET PO (08:12)
[2022-03-07] MEDS: Sodium Bicarbonate 650 MG TABLET PO (08:13)
[2022-03-07] MEDS: Finasteride 5 MG TABLET PO (08:13)
[2022-03-07] MEDS: 0.9 % Sodium Chloride Flush 3 ML SYRINGE IVFLUSH (08:15)
--- NOTE | 2022-03-07 08:17 | P.PNUR_ITS ---
Subjective Subjective Date of Service: 03/07/22 Patient reports: no new complaints Interval history: Keshav Ramos is a 72 year old male with history of prostate cancer, scrotal abscess chronic in duration at the base of scrotum for few months took Levaquin 2 weeks ago, prior to presenting to the ED.? CT scan pertinent findings:? Edema of the lower scrotum. There is a multiseptated low-density collection in the posterior aspect of the scrotum that measures at least 4.6 x 6.9 x 6.5 cm in size suspicious for scrotal abscess. No gas within the co llection. Edema in the adjacent scrotal skin. s/p Incision and drainage of scrotal abscess 03/05/22, wound packed with iodoform packing. 03/06/22 - bedside dressing change, wound is clean scrotal skin mild induration, no cellulitis. Will cont IV Abx Plan for DC 03/07/22 with VNA services and fu with Wound care for outpatient consultation Physical Exam Vital Signs: Vital Signs: Last Vital Signs Temp 97.3 F 03/07/22 07:41 Pulse 78 03/07/22 07:41 Resp 18 03/07/22 07:41 BP 107/51 L 03/07/22 07:41 Pulse Ox 97 03/07/22 07:41 O2 Del Method 03/07/22 07:41 BMI result Body Mass Index 22.4 Const: General: no acute distress and well developed Orientation/consciousness: patient oriented x3 HEENT: Head: Yes normocephalic and Yes atraumatic Eyes: Conjunctivae: conjunctivae normal Neck: Neck: Yes normal visual inspection Chest: Chest palpation & inspection: normal inspection of the chest Resp: Effort & Inspection: normal respiratory effort Cardio: Rate: regular rate GI: Inspection: Yes normal to inspection Palpation (GI): Soft to palpation : Other: scrotum - induration minimal, wound clean, dressing change at bedside Penis: normal penis Neuro: General: patient oriented x3 Extrem: General: No pedal edema Psych: Appearance: grossly normal Affect: normal affect Urology Results Labs CBC & Chem 7: 03/07/22 05:56 03/06/22 08:58 Labs: Laboratory Results - last 24 hr 03/06/22 03/06/22 03/07/22 08:58 08:58 05:56 WBC 8.0 6.9 RBC 2.87 L 2.79 L Hgb 7.7 L 7.3 L Hct 25.8 L 25.5 L MCV 89.9 91.4 MCH 26.8 L 26.2 L MCHC 29.8 L 28.6 L RDW 14.7 14.6 Plt Count 371 346 MPV 8.9 L 9.4 Absolute Nucleated RBC 0.000 0.000 Nucleated RBC % (auto) 0.0 0.0 Sodium 144 Potassium 4.3 Chloride 112 H Carbon Dioxide 23 Anion Gap 13 BUN 18 H Creatinine 1.44 H Estim Creat Clear Calc 49.0 Estimated GFR 48 Random Glucose 99 Calcium 8.1 L Iron TIBC % Saturation Unsat Iron Binding 03/07/22 05:56 WBC RBC Hgb Hct MCV MCH MCHC RDW Plt Count MPV Absolute Nucleated RBC Nucleated RBC % (auto) Sodium Potassium Chloride Carbon Dioxide Anion Gap BUN Creatinine Estim Creat Clear Calc Estimated GFR Random Glucose Calcium Iron 38 L TIBC 211 L % Saturation 18 Unsat Iron Binding 173 Progress Note: A&P Assessment and plan (1) Scrotal abscess: Status: Acute (2) Urgency incontinence: Status: Acute (3) Anemia: Status: Acute Assessment and Plan: Acute on chronic, the patient has been on iron at home, will recheck HB/Hct next week, pt asymptomatic (4) Prostate cancer: Status: Acute Plan s/p Incision and drainage of scrotal abscess 03/05/22, wound packed with iodoform packing. bedside dressing change, wound is clean scrotal skin mild induration, no cellulitis. wound c/s no growth PO Abx on discharge. Bactrim DS one tab bid for 10 days Plan for DC 03/07/22 with VNA services and fu with Wound care for outpatient consultation [facility] for urinary incontinence. Time Spent With Patient Time: Total time spent is greater than 50% in coordination of care (as documented) at patient's floor/unit and/or counseling patient: Progress Note: Quality Stroke Does the patient have a stroke diagnosis?: No
[2022-03-07 08:19] LABS: Folate 3.1 ng/mL (> or = 4.0); Vitamin B12 468 pg/mL (200-900)
--- NOTE | 2022-03-07 10:36 | HO.PM.IMPN ---
Subjective Subjective Date of Service: 03/07/22 Interval History: seen and examined this morning follow up for scrotal abscess feeling well today H/H trending down - denies bleeding, dizziness, sob, chest pain wants to go home Review of Systems Review of Systems: Yes all other systems are reviewed and are negative Constitutional Constitutional: Denies chills and Denies fever(s) ENT Ears, Nose, Mouth, and Throat: Denies dizziness Cardiovascular Cardiovascular: Denies chest pain, Denies palpitations and Denies dyspnea Respiratory Respiratory: Denies cough and Denies dyspnea Gastrointestinal Gastrointestinal: Denies abdominal pain, Denies nausea and Denies vomiting Neurologic Neurologic: Denies dizziness Endocrine Endocrine: Denies palpitations Physical Exam Vital Signs: Vital Signs: Last Vital Signs Temp 97.3 F 03/07/22 07:41 Pulse 78 03/07/22 07:41 Resp 18 03/07/22 07:41 BP 107/51 L 03/07/22 07:41 Pulse Ox 97 03/07/22 07:41 O2 Del Method 03/07/22 07:41 BMI result Body Mass Index 22.4 Const: Other: chronically ill appearing General: cooperative, comfortable, alert and awake Orientation/consciousness: patient oriented x3 Resp: Effort & Inspection: normal respiratory effort and able to speak in complete sentences Cardio: Rate: regular rate Heart sounds: S1 normal heart sound present and S2 normal heart sound present GI: Inspection: No distended Palpation (GI): Soft to palpation Neuro: General: patient oriented x3 and CN's II-XI intact bilaterally Extrem: Other: able to move all 4 extremities spontaneously General: Yes no pedal edema Objective Data Active Medications Acetaminophen (Acetaminophen Supp 650 Mg Supp.Rect) 650 mg MN Q6H PRN PRN Reason: Pain, Mild (Pain Scale 1-3) Acetaminophen (Acetaminophen 325 Mg Tablet) 650 mg PO Q6H PRN PRN Reason: Pain, Moderate (Pain Scale 4-6 Finasteride (Finasteride 5 Mg Tablet) 5 mg PO DAILY [facility] Last Admin: 03/07/22 08:13 Dose: 5 mg Documented By: AUSTIN Piperacillin Sod/Tazobactam (Sod 2.25 gm/ Sodium Chloride) 50 mls @ 100 mls/hr IV Q6H [facility] Last Infusion: 03/07/22 06:32 Dose: 0 mls/hr Documented By: HELDER Non-Formulary Medication (Fesoterodine) 4 mg PO DAILY [facility] Oxycodone HCl (Oxycodone Hcl Immed Release 5 Mg Tablet) 5 mg PO Q6H PRN PRN Reason: Pain, Severe (Pain Scale 7-10) Last Admin: 03/07/22 08:12 Dose: 5 mg Documented By: AUSTIN Sodium Bicarbonate (Sodium Bicarbonate 650 Mg Tablet) 650 mg PO BID [facility] Last Admin: 03/07/22 08:13 Dose: 650 mg Documented By: AUSTIN Sodium Chloride (0.9 % Sodium Chloride Flush 3 Ml Syringe) 3 ml IVFLUSH QSHIFT [facility] Last Admin: 03/07/22 08:15 Dose: 3 ml Documented By: AUSTIN Labs CBC & Chem 7: 03/07/22 05:56 03/06/22 08:58 Labs: Laboratory Results - last 24 hr 03/07/22 03/07/22 03/07/22 05:56 05:56 05:56 MCV 91.4 MCH 26.2 L MCHC 28.6 L RDW 14.6 Plt Count 346 MPV 9.4 Absolute Nucleated RBC 0.000 Nucleated RBC % (auto) 0.0 Iron 38 L TIBC 211 L % Saturation 18 Unsat Iron Binding 173 Vitamin B12 468 Folate 3.1 L Microbiology Microbiology Results: Microbiology 03/05/22 Unknown Gram Stain - Final Scrotum Routine Culture - Preliminary No growth after 2 days 03/04/22 19:21 Blood Culture - Preliminary Blood - Venous No growth after 48 hours. 03/04/22 19:21 Blood Culture - Preliminary Blood - Venous No growth after 48 hours. 03/05/22 Unknown Gram Stain - Final Scrotum Routine Culture - Preliminary No growth to date. Assessment and Plan (1) Scrotal abscess: Status: Acute (2) Prostate cancer: Status: Acute (3) Anemia: Status: Acute Plan 72-year-old male with past medical history of prostate cancer, currently being followed by Urology presents to the hospital with complaints of swelling in the scrotum found to have scrotal abscess We are seen in consult for medical management scrotal abscess no sepsis s/p I&D on zosyn management per urology history of prostate cancer management per urology team Acute on chronic normocytic Anemia H/H drifting down no obvious bleeding noted. stool occult not obtained yet has multiple reasons for anemia including CKD, prostate cancer, history of iron deficiency, B12 deficiency. Today folic acid also on lower side as well Also likely dilutional component as all cell lines have dropped. Patient has never had colonoscopy and does not wish to have 1 in the future.. No history of CAD, CHF, no indication for blood transfusion at this time. Patient wishes to be discharged home and follow-up with PCP, repeat CBC next week. continue po iron supplementation, start po folic acid spinal surgery secondary to disc rupture patient does have sclerotic lesion of T12 concerning for possible malignancy with metastasis patient following urology, recommend follow-up with surgeon as well as Hematology-Oncology ( previously seen Dr. Dickerson) CKD4 renal function within baseline Thank you for this consult. we will sign off at this time Quality Stroke Does the patient have a stroke diagnosis?: No VTE Prior VTE?: No VTE Risk Level:: Surgical - low VTE Device Contraindication: N/A - Device Ordered VTE Drug Contraindication: Treatment Not Indicated
[2022-03-07 11:44] VITALS: BP 111/55; PULSE 83; RESP 18; TEMP 36.3; O2SAT 97
[2022-03-07 12:29] LABS: OBS Int Ctl Valid YES; OBS1 NEGATIVE (NEGATIVE)
--- NOTE | 2022-03-07 14:44 | P.F2F_ITS ---
Service Date Service Date: 03/07/22 Encounter Date of encounter: 03/07/22 Reasons for Services Signs and symptoms assessed: Scrotal wound, urinary incontinence Reason for nursing home: wound care, GI/ assessment and other (Iodoform packing every other day reinforced with 4 x 4 dressing, [place] flash condom catheter to gravity drainage) MD Overseeing Care: Tracie Fleming Homebound: Leaving the home is medically contraindicated at this time without the asist of a device and/or another person due th the listed conditions above and below. Reason homebound: other Certification: Based on the above findings, I certify that this patient is confined to the home and needs intermittent nursing home care, physical therapy and/or speech therapy, or continues to need occupational therapy. The patient is under my care, and I have initiated the establishment of the plan of care. The patient will be followed by a physician who will periodically review the plan of care.
--- NOTE | 2022-03-07 15:00 | PM.DS ---
DS: Providers Provider Date of Service: 03/07/22 Date of admission: 03/04/22 21:33 Date of discharge: 03/07/22 Primary care physician: JYOTI Martinez Admitting clinician: Tracie Fleming Attending physician on admission: Tracie Fleming Consults: 03/04/22 21:38 Consult to Medicine Routine Consulting Provider: Tracie Fleming Reason for consultation: medical management 03/05/22 14:59 Consult to Wound Care Routine Consulting Provider: Tracie Fleming Reason for consultation: scrotal wound, s/p incision and drainage, currently iodoform packing in 03/05/22 15:02 Consult to Care Team Routine Comment: Reason for consultation: scrotal wound will need VNA services Attending physician on discharge: Tracie Fleming Discharging clinician: Tracie Fleming DS: Diagnosis Discharge Diagnosis (1) Scrotal abscess: Status: Acute (2) Urgency incontinence: Status: Acute (3) Anemia: Status: Acute (4) Prostate cancer: Status: Acute DS: Summary Time Spent with Patient Time attestation: Total time spent providing and/or coordinating discharge services: Discharge coordination time: Greater than 30 minutes Quality: Safe Use of Opioids Does Pt have an Active Cancer Diagnosis on the Problem List?: Yes Opioid Measure Date for [facility] Report: 03/04/22 Opioid Measure Time for [facility] Report: 09:31 Quality: Stroke Does the patient have a stroke diagnosis?: No Physical Exam Vital Signs: Vital Signs: Last Vital Signs Temp 97.3 F 03/07/22 11:44 Pulse 83 03/07/22 11:44 Resp 18 03/07/22 11:44 BP 111/55 L 03/07/22 11:44 Pulse Ox 97 03/07/22 11:44 O2 Del Method 03/07/22 11:44 BMI result Body Mass Index 22.4 DS: Data Data Completed and Pending Labs on day of discharge: Laboratory Results - last 24 hr 03/07/22 03/07/22 03/07/22 05:56 05:56 05:56 WBC 6.9 RBC 2.79 L Hgb 7.3 L Hct 25.5 L MCV 91.4 MCH 26.2 L MCHC 28.6 L RDW 14.6 Plt Count 346 MPV 9.4 Absolute Nucleated RBC 0.000 Nucleated RBC % (auto) 0.0 Iron 38 L TIBC 211 L % Saturation 18 Unsat Iron Binding 173 Vitamin B12 468 Folate 3.1 L Stool Occult Blood 03/07/22 12:16 WBC RBC Hgb Hct MCV MCH MCHC RDW Plt Count MPV Absolute Nucleated RBC Nucleated RBC % (auto) Iron TIBC % Saturation Unsat Iron Binding Vitamin B12 Folate Stool Occult Blood NEGATIVE Preliminary micro results at discharge 03/05/22 Unknown Routine Culture - Preliminary Scrotum No growth after 2 days 03/05/22 Unknown Routine Culture - Preliminary Scrotum No growth after 2 days 03/04/22 19:21 Blood Culture - Preliminary Blood - Venous No growth after 48 hours. 03/04/22 19:21 Blood Culture - Preliminary Blood - Venous No growth after 48 hours. Discharge Plan Discharge Anticipated Discharge Date/Time: 03/07/22 17:00 Patient Disposition: Home Health Service Discharge Diagnosis: Scrotal Abscess Referrals: Andres MCCLOUDA [Outside] - 1 Day (YOUR VISITING NURSE WILL SEE YOU ON THURSDAY THEY WILL CALL YOU DIRECTLY ) Evelyne Cespedes [employer] [Primary Care Provider] - 1 Week Discharge Medications: New folic acid 1 mg tablet 1 mg PO DAILY 30 Days Qty: 30 0RF sulfamethoxazole-trimethoprim [Bactrim DS] 800-160 mg tablet 1 tab PO Q12H Qty: 20 0RF oxycodone-acetaminophen [Percocet] 5-325 mg tablet 1 tab PO Q6H PRN (Reason: pain) Qty: 10 0RF Rx Instructions: Partial Fill upon patient request. Continued ferrous gluconate 324 mg (38 mg iron) tablet 1 tab PO QAM acetaminophen 325 mg Tablet 650 mg PO Q6H PRN (Reason: Pain) Discharge Orders: Discharge Order (Routine); Ordered 03/07/22 Ordered By: Tracie Fleming Activity on Discharge: As tolerated Stand Alone Forms: Patient Portal Discharge page Care Plan Goals: VNA services for wound care, fu labs for anemia Health Concerns: monitor surgical wound, monitor anemia Plan of Treatment: VNA services for wound care, fu labs for anemia, FU with Dr. Rodri buck for 03/11/22 Assessment: Scrotal wound s/p Incision and drainage, wound healing well Acute on Chronic anemia, follow labs, fu with PCP Discharge Date/Time: 03/07/22 17:38
== END 2022-03-07 17:38 | disposition home health service (06) | DRG 728 ==
LOC: HO.ED 21:35 → HO.EDOVER 21:54 → HO.S3 03-05 15:23
PROVIDERS: Physician Assistant Medical; Admitting Provider Urology; Emergency Provider Internal Medicine; PCP Nurse Practitioner Family; Visit Provider Urology
PROC: 0V95XZZ Drainage of Scrotum, External Approach (ICD-10-PCS; principal; 2022-03-05 13:40)
DX: N49.2 Inflammatory disorders of scrotum (principal); N18.4 Chronic kidney disease, stage 4 (severe); C79.51 Secondary malignant neoplasm of bone; I12.9 Hypertensive chronic kidney disease with stage 1 through stage 4 chronic kidney disease, or unspecified chronic kidney disease; N39.41 Urge incontinence; D69.6 Thrombocytopenia, unspecified; F17.210 Nicotine dependence, cigarettes, uncomplicated; Z71.6 Tobacco abuse counseling; C61 Malignant neoplasm of prostate; D63.0 Anemia in neoplastic disease; Z20.822 Contact with and (suspected) exposure to COVID-19; Z79.899 Other long term (current) drug therapy
CPT/HCPCS: 36415; 74176; 80048; 80053; 82272; 82607; 82746; 83540; 83605; 85025; 85027; 87040; 87070; 87205; 87635; 93005; 99285; J2405; J2543; J2795; J3010

== ENCOUNTER → 2022-03-11 13:57 | Outpatient (BNVA) | payer MEDICARE, SELFPAY | PROVIDERS: PCP Nurse Practitioner Family; Visit Provider Urology | DX: C61 Malignant neoplasm of prostate (principal); N49.2 Inflammatory disorders of scrotum; R97.21 Rising PSA following treatment for malignant neoplasm of prostate | CPT/HCPCS: 96402; 99212; J9217 ==

== ENCOUNTER 2022-03-18 10:45 | Outpatient (REF) | payer MEDICARE, SELFPAY ==
[2022-03-18 10:58] LABS: MANUAL DIFF FLAG NO
[2022-03-18 11:58] LABS: Basophils Percent Auto 0.5 % (0-2); Eosinophils Absolute Auto 0.4 X10*3/uL (0.0-0.4); Eosinophils Percent Auto 4.7 % (0-4); Hematocrit 29.2 % (42.0-52.0); Hemoglobin 8.7 g/dl (14.0-18.0); Imm Gran Abs Auto 0.05 X10*3/uL (0.00-0.03); Imm Gran Pct Auto 0.6 % (0.0-0.4); Immature Retic Fraction 20.1 % (2.3-13.4); Lymphocytes Absolute Auto 1.5 X10*3/uL (1.2-4.9); Lymphocytes Percent Auto 18.9 % (20-40); Mean Corpuscular HGB Conc 29.8 g/dl (31.0-36.0); Mean Corpuscular Volume 90.7 fL (80.0-98.0); Mean Platelet Volume 9.4 fL (9.4-12.4); Monocytes Absolute Auto 0.6 X10*3/uL (0.1-1.2); Monocytes Percent Auto 7.7 % (2-11); Neutrophils Absolute Auto 5.4 x10*3/uL (2.0-8.3); Neutrophils Percent Auto 67.6 % (45-73); Platelet Count 387 X10*3/uL (160-400); Red Blood Count 3.22 X10*6/uL (4.60-5.80); Red Cell Distribution Width 15.9 % (11.0-16.0); Retic HGB Equivalent 30.8 pg (30.0-35.0); Reticulocyte Percent 2.4 % (0.5-1.8); Reticulocytes Absolute 0.078 X10*6/uL (0.026-0.095)
[2022-03-18 12:24] LABS: Alanine Aminotransferase < 6 U/L (0-40); Albumin Level 3.8 g/dL (3.5-5.0); Alkaline Phosphatase 68 U/L (39-117); Anion Gap 14 (12-20); Aspartate Amino Transferase 8 U/L (5-37); Bilirubin Total < 0.2 mg/dL (0.0-1.0); Blood Urea Nitrogen 20 mg/dL (9-16); Calcium 9.2 mg/dL (8.4-10.2); Carbon Dioxide 26 mmol/L (22-29); Chloride 107 mmol/L (96-108); Estimated Glomerular Filt Rate 34; Glucose Random 95 mg/dL (60-115); Potassium 4.9 mmol/L (3.3-5.1); Sodium 142 mmol/L (135-145); Total Protein 6.1 g/dL (6.5-8.0)
== END 2022-03-18 10:46 | disposition home or self-care (01) ==
LOC: HO.LAB 10:45
PROVIDERS: PCP Internal Medicine Medical Oncology; Visit Provider Internal Medicine Medical Oncology
DX: C61 Malignant neoplasm of prostate (principal)
CPT/HCPCS: 36415; 80053; 85025; 85045

== ENCOUNTER 2022-04-01 10:11 | Outpatient (REF) | payer MEDICARE, SELFPAY ==
[2022-04-01 10:41] LABS: MANUAL DIFF FLAG NO
[2022-04-01 11:28] LABS: Basophils Percent Auto 0.6 % (0-2); Eosinophils Absolute Auto 0.3 X10*3/uL (0.0-0.4); Eosinophils Percent Auto 4.2 % (0-4); Hematocrit 31.3 % (42.0-52.0); Hemoglobin 9.3 g/dl (14.0-18.0); Imm Gran Abs Auto 0.02 X10*3/uL (0.00-0.03); Imm Gran Pct Auto 0.3 % (0.0-0.4); Lymphocytes Absolute Auto 1.3 X10*3/uL (1.2-4.9); Lymphocytes Percent Auto 20.3 % (20-40); Mean Corpuscular HGB Conc 29.7 g/dl (31.0-36.0); Mean Platelet Volume 9.8 fL (9.4-12.4); Monocytes Absolute Auto 0.6 X10*3/uL (0.1-1.2); Monocytes Percent Auto 8.7 % (2-11); Neutrophils Absolute Auto 4.3 x10*3/uL (2.0-8.3); Neutrophils Percent Auto 65.9 % (45-73); Platelet Count 284 X10*3/uL (160-400); Red Blood Count 3.44 X10*6/uL (4.60-5.80); Red Cell Distribution Width 15.8 % (11.0-16.0); White Blood Count 6.5 X10*3/uL (4.8-10.8)
[2022-04-01 12:03] LABS: Alanine Aminotransferase 7 U/L (0-40); Alkaline Phosphatase 79 U/L (39-117); Anion Gap 14 (12-20); Aspartate Amino Transferase 10 U/L (5-37); Bilirubin Total 0.2 mg/dL (0.0-1.0); Blood Urea Nitrogen 22 mg/dL (9-16); Calcium 9.8 mg/dL (8.4-10.2); Carbon Dioxide 25 mmol/L (22-29); Chloride 108 mmol/L (96-108); Estimated Glomerular Filt Rate 47; Glucose Random 85 mg/dL (60-115); Potassium 5.2 mmol/L (3.3-5.1); Sodium 142 mmol/L (135-145); Total Protein 6.2 g/dL (6.5-8.0)
[2022-04-01 15:11] LABS: Prostate Specific Antigen 11.46 ng/mL (<0.05-4.0)
[2022-04-08 18:29] LABS: Testosterone, Total 17 ng/dL (250-1100)
== END 2022-04-01 10:12 | disposition home or self-care (01) ==
LOC: HO.LAB 10:11
PROVIDERS: PCP Internal Medicine Medical Oncology; Visit Provider Internal Medicine Medical Oncology
DX: Z12.5 Encounter for screening for malignant neoplasm of prostate (principal); C61 Malignant neoplasm of prostate; D50.9 Iron deficiency anemia, unspecified
CPT/HCPCS: 36415; 80053; 84153; 84403; 85025

== ENCOUNTER → 2022-04-14 10:51 | Outpatient (REF) | payer MEDICARE, SELFPAY ==
--- NOTE | ~2022-04-14 | NM_ITS ---
EXAMINATION: NM BONE SCAN OF THE WHOLE BODY CLINICAL INFORMATION: Restaging stage IV prostate cancer with rising PSA. COMPARISON: Previous bone scans dated 04/20/2019 and 01/27/2012 are available for comparison. The diagnostic CT scan of the abdomen and pelvis, dated 03/04/2022 CT scan of the chest dated 08/22/2021 are available for comparison. TECHNIQUE: Multiple gamma scintillation camera images of the whole body were performed 2 hours following the intravenous administration of 27 mCi Tc-99m MDP. FINDINGS: In the head, no significant abnormalities are present. A small focus of mildly increased activity medially in the right maxillary sinus region is probably related to a sinusitis or trauma. In the thoracic cage and upper extremities, there is mildly increased activity in the sternoclavicular joints bilaterally and the right acromioclavicular joint and right glenohumeral articulation. Some residual radiopharmaceutical at the injection site in the right antecubital fossa is noted. In the spine, there is intense abnormally increased activity diffusely in the T12 vertebral body. There is a mild thoracolumbar scoliosis with upper lumbar convexity to the right. In the pelvis, no significant osseous abnormalities are present. There is intense activity diffusely and somewhat heterogeneously in the scrotum, and this is significantly more intense and urinary activity seen in the urinary bladder or renal collecting system and is in the region of a low density collection in the scrotum visualized on the 03/04/2022 CT scan. In the lower extremities, there is mildly increased activity in the patellar and medial compartments of both knees and very faintly in the medial malleolus of the left ankle and the first metatarsophalangeal joint regions bilaterally. No other definite bony abnormalities are noted. Compared to the previous bone scan dated 04/20/2019, the T12 abnormality is new. The urinary bladder and faint visualization of both kidneys are noted. The CT scan of the abdomen and pelvis dated 03/04/2022 shows sclerosis in the T12 vertebral body the corresponds to the bone scan abnormality at this site described above. GA/GA bone scan whole body IMPRESSION: 1. Intense abnormality at T12 is most likely a metastasis. 2. A few additional mild nonspecific abnormalities are noted as described above and these are all likely arthritic or traumatic in etiology. None of these abnormalities is strongly suspicious for metastatic disease. 3. Intense bone agent uptake in the scrotal region is of uncertain clinical significance but is probably related to the previously described scrotal mass. This is probably not due to excreted urinary activity, as it is much more intense than the activity visualized in the urinary bladder or renal pelves. Clinical correlation is recommended.
== END ==
LOC: HO.NUCMED 10:51
PROVIDERS: PCP Internal Medicine Medical Oncology; Visit Provider Internal Medicine Medical Oncology
DX: C61 Malignant neoplasm of prostate (principal)
CPT/HCPCS: 78306; A9503

== ENCOUNTER 2022-04-24 08:21 | Outpatient (REF) | payer MEDICARE, SELFPAY ==
[2022-04-24 08:36] LABS: MANUAL DIFF FLAG NO
[2022-04-24 09:05] LABS: Basophils Absolute Auto 0.1 X10*3/uL (0.0-0.2); Basophils Percent Auto 0.8 % (0-2); Eosinophils Absolute Auto 0.3 X10*3/uL (0.0-0.4); Eosinophils Percent Auto 4.3 % (0-4); Hematocrit 32.9 % (42.0-52.0); Hemoglobin 9.7 g/dl (14.0-18.0); Imm Gran Abs Auto 0.02 X10*3/uL (0.00-0.03); Imm Gran Pct Auto 0.3 % (0.0-0.4); Lymphocytes Absolute Auto 1.5 X10*3/uL (1.2-4.9); Lymphocytes Percent Auto 23.4 % (20-40); Mean Corpuscular HGB Conc 29.5 g/dl (31.0-36.0); Mean Corpuscular Hemoglobin 27.1 pg (27.0-33.0); Mean Corpuscular Volume 91.9 fL (80.0-98.0); Mean Platelet Volume 10.1 fL (9.4-12.4); Monocytes Absolute Auto 0.6 X10*3/uL (0.1-1.2); Monocytes Percent Auto 9.5 % (2-11); Neutrophils Absolute Auto 3.9 x10*3/uL (2.0-8.3); Neutrophils Percent Auto 61.7 % (45-73); Platelet Count 351 X10*3/uL (160-400); Red Blood Count 3.58 X10*6/uL (4.60-5.80); White Blood Count 6.3 X10*3/uL (4.8-10.8)
[2022-04-24 10:08] LABS: Prostate Specific Antigen 1.95 ng/mL (<0.05-4.0)
[2022-04-24 10:12] LABS: Alanine Aminotransferase < 6 U/L (0-40); Albumin Level 4.1 g/dL (3.5-5.0); Alkaline Phosphatase 92 U/L (39-117); Anion Gap 16 (12-20); Aspartate Amino Transferase 9 U/L (5-37); Bilirubin Total 0.3 mg/dL (0.0-1.0); Blood Urea Nitrogen 24 mg/dL (9-16); Calcium 9.7 mg/dL (8.4-10.2); Carbon Dioxide 25 mmol/L (22-29); Chloride 108 mmol/L (96-108); Estimated Glomerular Filt Rate 37; Glucose Random 104 mg/dL (60-115); Potassium 5.2 mmol/L (3.3-5.1); Prostate Specific Antigen 1.83 ng/mL (<0.05-4.0); Sodium 144 mmol/L (135-145); Total Protein 6.5 g/dL (6.5-8.0)
[2022-05-01 12:33] LABS: Testosterone, Total 1 ng/dL (250-1100)
[2022-05-02 14:02] LABS: Testosterone, Total 3 ng/dL (250-1100)
== END 2022-04-24 08:22 | disposition home or self-care (01) ==
LOC: HO.LAB 08:21
PROVIDERS: Absent Provider Internal Medicine Medical Oncology; PCP Internal Medicine Medical Oncology; Visit Provider Urology
DX: Z12.5 Encounter for screening for malignant neoplasm of prostate (principal); C61 Malignant neoplasm of prostate; D50.9 Iron deficiency anemia, unspecified; M54.41 Lumbago with sciatica, right side; R63.4 Abnormal weight loss
CPT/HCPCS: 36415; 80053; 84153; 84403; 85025

== ENCOUNTER 2022-05-09 09:38 | Outpatient (REF) | payer MEDICARE, SELFPAY ==
--- NOTE | ~2022-05-09 | MR_ITS ---
MR LUMBAR SPINE WITHOUT AND WITH CONTRAST CLINICAL INFORMATION: Low back pain. Follow-up bone scan. COMPARISON: Lumbar spine MRI 09/12/2021. Bone scan 04/14/2022. TECHNIQUE: MRI of the lumbar spine was obtained using routine sequences with and without contrast. Intravenous contrast: Magnevist 7.5 mL FINDINGS: Correlating with the recent bone scan, there is a enhancing lesion replacing the majority of the T12 vertebral body that is most compatible with an intraosseous metastatic focus given the patient's history of prostate cancer. No additional suspicious intraosseous lesions and no enhancing epidural lesions. There are post radiation fatty marrow signal changes within the sacrum and partially imaged pelvis. There are 5 nonrib-bearing lumbar-type vertebral bodies. There is grade 1 retrolisthesis of L1 on L2, L2 on L3, and L3 on L4. Multilevel endplate osteophytes. The vertebral body heights are maintained. There are Modic type II endplate signal changes at L2-L3 and L4-L5. There is no pathologic enhancement along the cauda equina nerve roots. There are bilateral renal cysts. There is left renal atrophy. Renal collecting systems are dilated bilaterally, greater on the left. L1-L2: Mild annular disc bulge and mild bilateral facet arthropathy. No central canal stenosis. Mild foraminal encroachment bilaterally. L2-L3: A left paracentral/left lateral disc osteophyte protrusion results in worsening compression of the traversing left L3 nerve root within the left subarticular zone and worsening moderate left-sided foraminal stenosis, contacting the extraforaminal left L2 nerve root. L3-L4 artifact from an interspinous surgical device. Right hemilaminectomy changes.: There is a diffuse annular disc bulge with a superimposed right paracentral/right lateral disc protrusion resulting in severe central canal stenosis and compression of traversing right greater than left nerve roots, similar to the preoperative lumbar spine MRI dated 09/12/2021. A right lateral disc protrusion at L3-L4 results in worsening moderate to severe right foraminal stenosis and compression of the exiting right L3 nerve root as well. There is enhancing granulation/scar tissue within the right epidural space. L4-L5: Diffuse disc osteophyte complex and moderate bilateral facet arthropathy and ligamentum flavum thickening. Findings in concert result in mild narrowing of the central canal as well as moderate bilateral foraminal stenosis with mild mass effect on the exiting nerve roots bilaterally. L5-S1: Annular disc bulge and moderate bilateral facet arthropathy. No central canal stenosis and no foraminal stenosis. MR/MR lumbar spine wo/w con IMPRESSION: - Correlating with the recent bone scan, there is a enhancing lesion replacing the majority of the T12 vertebral body that is most compatible with an intraosseous metastatic focus given the patient's history of prostate cancer. No additional suspicious intraosseous lesions and no enhancing epidural lesions. There are post radiation fatty marrow signal changes within the sacrum and partially imaged pelvis. - At L2-L3, a left paracentral/left lateral disc osteophyte protrusion results in worsening compression of the traversing left L3 nerve root within the left subarticular zone and worsening moderate left-sided foraminal stenosis, contacting the extraforaminal left L2 nerve root. - At L3-L4, there are interval postoperative changes following right hemilaminectomy and placement of an interspinous surgical device. There is a large residual versus recurrent right paracentral disc herniation resulting in persistent severe central canal stenosis and compression of the traversing right greater than left nerve roots, similar to the preoperative study. A right lateral disc protrusion at L3-L4 results in worsening moderate to severe right foraminal stenosis and compression of the exiting right L3 nerve root as well. There is enhancing granulation/scar tissue within the right epidural space. - At L4-L5, spondylitic changes result in mild central canal stenosis and moderate bilateral foraminal stenosis with mild mass effect on the exiting nerve roots bilaterally. - There are bilateral renal cysts. There is left renal atrophy. Renal collecting systems are dilated bilaterally, greater on the left.
== END 2022-05-09 09:39 | disposition home or self-care (01) ==
LOC: HO.MRI 09:38
PROVIDERS: PCP Internal Medicine Medical Oncology; Visit Provider Internal Medicine Medical Oncology
DX: G58.9 Mononeuropathy, unspecified (principal); M54.50 Low back pain, unspecified
CPT/HCPCS: 72158; A9585

== ENCOUNTER → 2022-05-20 10:54 | Outpatient (BNVA) | payer MEDICARE, SELFPAY | PROVIDERS: PCP Internal Medicine Medical Oncology; Visit Provider Urology | DX: C61 Malignant neoplasm of prostate (principal); R35.0 Frequency of micturition; N30.40 Irradiation cystitis without hematuria; R97.21 Rising PSA following treatment for malignant neoplasm of prostate | CPT/HCPCS: Q3014 ==

== ENCOUNTER 2022-06-03 13:15 | Outpatient (REF) | payer MEDICARE, SELFPAY ==
--- NOTE | ~2022-06-03 | US_ITS ---
EXAMINATION: ANKLE-BRACHIAL INDICES SINGLE LEVEL PULSE VOLUME RECORDING ARTERIAL DUPLEX BILATERAL LEGS CLINICAL INFORMATION: Peripheral vascular disease. COMPARISON: 01/27/2022. TECHNIQUE: Ankle-brachial indices and PVR at the ankle were obtained. Duplex Doppler of the bilateral lower extremity arterial systems was performed. FINDINGS: RIGHT: Ankle-brachial index: 1.05, previous 1.05 PVR: Mildly abnormal. Common femoral: PSV 91 cm/s. Triphasic waveform. Deep femoral: PSV 120 cm/s. Triphasic waveform. Proximal superficial femoral: PSV 100 cm/s. Triphasic waveform. Mid superficial femoral: PSV 133 cm/s. Triphasic waveform. Distal superficial femoral: PSV 140 cm/s. Triphase waveform. Popliteal: PSV 37 cm/s. Triphasic waveform. Posterior tibial: PSV 137 cm/s. Triphasic waveform. Peroneal: PSV 33 cm/s. Triphasic waveform. LEFT: Ankle-brachial index: 0.95, previous 0.89 PVR: Mildly abnormal. Common femoral: PSV 381 cm/s. Biphasic waveform. Deep femoral: PSV 217 cm/s. Monophasic waveform. Proximal superficial femoral: PSV 136 cm/s. Triphasic waveform. Mid superficial femoral: PSV 115 cm/s. Triphasic waveform. Distal superficial femoral: PSV 61 cm/s. Triphasic waveform. Popliteal: PSV 56 cm/s. Biphasic waveform. Posterior tibial: PSV 53 cm/s. Triphasic waveform. Peroneal: PSV 78 cm/s. Triphasic waveform. There are superficial femoral collaterals seen bilaterally. US/US arterial duplex LE BI IMPRESSION: Right: Normal ankle-brachial index. Mildly abnormal PVR. No evidence of hemodynamically significant stenosis or occlusion by Doppler. Left: Normal ankle-brachial index. Mildly abnormal PVR. No evidence of hemodynamically significant stenosis or occlusion by Doppler.
--- NOTE | ~2022-06-03 | US_ITS ---
EXAMINATION: ANKLE-BRACHIAL INDICES SINGLE LEVEL PULSE VOLUME RECORDING ARTERIAL DUPLEX BILATERAL LEGS CLINICAL INFORMATION: Peripheral vascular disease. COMPARISON: 01/27/2022. TECHNIQUE: Ankle-brachial indices and PVR at the ankle were obtained. Duplex Doppler of the bilateral lower extremity arterial systems was performed. FINDINGS: RIGHT: Ankle-brachial index: 1.05, previous 1.05 PVR: Mildly abnormal. Common femoral: PSV 91 cm/s. Triphasic waveform. Deep femoral: PSV 120 cm/s. Triphasic waveform. Proximal superficial femoral: PSV 100 cm/s. Triphasic waveform. Mid superficial femoral: PSV 133 cm/s. Triphasic waveform. Distal superficial femoral: PSV 140 cm/s. Triphase waveform. Popliteal: PSV 37 cm/s. Triphasic waveform. Posterior tibial: PSV 137 cm/s. Triphasic waveform. Peroneal: PSV 33 cm/s. Triphasic waveform. LEFT: Ankle-brachial index: 0.95, previous 0.89 PVR: Mildly abnormal. Common femoral: PSV 381 cm/s. Biphasic waveform. Deep femoral: PSV 217 cm/s. Monophasic waveform. Proximal superficial femoral: PSV 136 cm/s. Triphasic waveform. Mid superficial femoral: PSV 115 cm/s. Triphasic waveform. Distal superficial femoral: PSV 61 cm/s. Triphasic waveform. Popliteal: PSV 56 cm/s. Biphasic waveform. Posterior tibial: PSV 53 cm/s. Triphasic waveform. Peroneal: PSV 78 cm/s. Triphasic waveform. There are superficial femoral collaterals seen bilaterally. US/US RAUL complete IMPRESSION: Right: Normal ankle-brachial index. Mildly abnormal PVR. No evidence of hemodynamically significant stenosis or occlusion by Doppler. Left: Normal ankle-brachial index. Mildly abnormal PVR. No evidence of hemodynamically significant stenosis or occlusion by Doppler.
== END 2022-06-03 13:16 | disposition home or self-care (01) ==
LOC: HO.US 13:15
PROVIDERS: Visit Provider Surgery Vascular Surgery
DX: I70.213 Atherosclerosis of native arteries of extremities with intermittent claudication, bilateral legs (principal)
CPT/HCPCS: 93923; 93925

== ENCOUNTER 2022-06-28 11:38 | Emergency (ER) | payer MEDICARE, SELFPAY ==
[2022-06-28 11:43] VITALS: BP 139/81; PULSE 114; RESP 16; TEMP 36.8; O2SAT 99; BMI 26.6
--- NOTE | 2022-06-28 11:43 | ED_ITS ---
HPI - General Adult General Chief complaint: Urogenital-Male Stated complaint: Needs catheter sent by PCP Source: patient Mode of arrival: ambulatory Limitations: no limitations History of Present Illness HPI narrative: Patient is a 72 year old assigned male at with a history of urinary incontinence presenting to the emergency department today with an increase in urinary urgency. Patient states that he constantly has urine that drips out but he is concerned that he is retaining because he is having the urgency to go more frequently so his doctor sent him here to be evaluated for possible catheter placement. Patient denies any dizziness, lightheadedness, nausea, vomiting, fever, chills, blurry vision, double vision, loss of vision, chest pain, difficulty breathing, shortness of breath, back pain, night sweats, pain with urination, blood in his urine or stool, syncope or a near syncopal episode, recent trauma or falls, bowel incontinence, bowel retention, or any other complaints at this time. Onset (ago): day(s) Severity: mild Severity scale (1-10): 3 Relieving factors: none Exacerbating factors: none Associated symptoms: denies other symptoms Treatments prior to arrival: none Related Data Home Medications Medication Instructions Recorded Confirmed acetaminophen 325 mg tablet 650 mg PO Q6H PRN Pain 03/04/22 05/20/22 ferrous gluconate 324 mg (38 mg 1 tab PO QAM 03/04/22 05/20/22 iron) tablet Previous Rx's Medication Instructions Recorded folic acid 1 mg tablet 1 mg PO DAILY 30 days #30 tabs 03/07/22 oxycodone-acetaminophen 5 mg-325 1 tab PO Q6H PRN pain #10 tabs 03/07/22 mg tablet (Percocet) sulfamethoxazole 800 1 tab PO Q12H #20 tabs 03/07/22 mg-trimethoprim 160 mg tablet (Bactrim DS) pentoxifylline 400 mg 400 mg PO BID 90 days #180 tabs 05/20/22 tablet,extended release vitamin E (dl, acetate) 450 mg 450 mg PO DAILY 90 days #90 caps 05/20/22 (1,000 unit) capsule Allergies Allergy/AdvReac Type Severity Reaction Status Date / Time No Known Allergies Allergy Verified 06/28/22 11:43 [No Known Allergies*] Review of Systems Constitutional: Constitutional: Reports no additional constitutional complaints, Denies chills, Denies fever(s) and Denies night sweats Eyes: Eyes: Reports no additional eye complaints, Denies blurry vision, Denies change in vision, Denies diplopia, Denies eye discharge, Denies loss of vision and Denies eye pain ENT: Denies dizziness Cardiovascular: Cardiovascular: Reports no additional cardiovascular complaints, Denies chest pain, Denies lightheadedness, Denies Loss of Con sciousness and Denies dyspnea Respiratory: Respiratory: Reports no additional respiratory complaints and Denies dyspnea Gastrointestinal: Gastrointestinal: Reports no additional gastrointestinal complaints, Denies melena, Denies hematochezia, Denies change in bowel habits and Denies change in stool character Genitourinary: Genitourinary: Reports no additional male genitourinary complaints, Denies hematuria, Denies oliguria, Denies difficulty urinating, Denies dysuria, Reports urinary frequency, Denies urinary hesitancy, Reports urinary incontinence (chronic for the patient) and Reports urinary urgency Musculoskeletal: Musculoskeletal: Reports no additional musculoskeletal com plaints, Denies numbness and Denies tingling Neurologic: Denies dizziness, Denies loss of vision, Denies numbness and Denies tingling Psychiatric: Psychiatric: Reports no additional psychiatric complaints Endocrine: Endocrine: Reports no additional endocrine complaints Hematologic/Lymphatic: Hematologic/Lymphatic: Reports no additional hematologic/lymphatic complaints Allergic/Immunologic: Allergic/Immunologic: Reports no additional allergic/immunologic complaints PMF Past Medical History Attestation statement: The following information was validated with the patient. Source: old records reviewed and nursing notes reviewed Medical History Falls Hematuria Hypercholesteremia Hypertension Kidney disease Macular degeneration Prostate cancer Prostate cancer Stenosis of lumbosacral spine Urgency incontinence Surgical History History of back surgery History of penile implant History of prostate surgery Spinal surgery in prior 3 months Family History Family History Other No family history of coronary artery disease Social History Social History Household Members: Spouse Housing: House Do you presently have visiting nurse or other home services: No Alcohol intake: former Patient Tobacco Use Status: Current someday Tobacco user Smoking Start Date: 06/18/61 Tobacco use type: Cigarette Cigarette Packs Per Day: 0.5 Cigarettes Per Day: 2 Years Smoked: 60 e-Cigarette/Vaping Use: Never Used Second Hand Smoke Exposure: No Advance Directives: Yes Advance Directives on File: Yes Advance Directives Date on File: 02/19/21 service: Yes Current occupational status: retired Physical Exam ED Vital Signs: BMI result Body Mass Index 26.6 Const General: cooperative, no acute distress, alert and awake Nutritional Appearance: well nourished Orientation/consciousness: patient oriented x3 Limitations: no limitations HENMT Head: Yes normal to inspection and Yes atraumatic Ears: hearing grossly normal bilaterally and external ears normal General nose exam: Normal external nose present, no nasal discharge noted and no epistaxis Face and sinus: Yes normal facial exam, No abrasion and No laceration Mouth: Normal oral and palatal mucosa present, no drooling and no muffled voice Eyes General: appearance normal, both eyes and all related structures Periorbital: periorbital findings normal Eyelids: Yes eyelids normal Conjunctivae: conjunctivae normal Pupils: Equal, round and reactive pupils present EOM: EOMs intact bilaterally Neck Neck: Yes normal visual inspection, Yes full ROM and Yes no lymphadenopathy Chest Chest palpation & inspection: normal inspection of the chest Resp Effort & Inspection: normal respiratory effort and able to speak in complete sentences Auscultation: clear to auscultation bilaterally Cardio Rate: regular rate Rhythm: regular rhythm GI Inspection: Yes normal to inspection Palpation (GI): Soft to palpation, not firm, nontender, no guarding and not rigid General: Yes no CVA tenderness Back/Spine/Pelvis Back: no CVA tenderness Neuro General: patient oriented x3 and moves all extremities Cranial nerves: Yes Equal, round and reactive pupils present Cognition (Neuro): normal cognition Motor exam (neuro): 5/5 motor strength present throughout Sensory Exam: Normal double simultaneous stimulation for sensation Coordination: [id number] test normal Extrem General: Yes normal to inspection, Yes full ROM and Yes capillary refill normal Psych Appearance: grossly normal Mental Status: mental status grossly normal Affect: normal affect Attitude: cooperative Thought process: Normal thought process present Thought content: Normal thought content present Insight: Good insight present (Psych) Course Course Course Narrative: RME performed by Shefali Adler PA-C. Patient is a 72 year old male presenting to the emergency department with lower abdominal pain and urinary retention. Patient placed back in the waiting room pending room availability. Medical Decision Making Medical Decision Making [facility] Narrative: Patient is a 72 year old assigned male at with a history of urinary incontinence presenting to the emergency department today with increased urinary urgency and frequency. Patient's physical exam was unremarkable including a normal bladder scan. Patient's blood work was unremarkable. Patient's was unable to provide us with a urine sample. Patient eloped from the department before I could review my physical exam findings and results with him. Differential Diagnosis Differential Diagnoses: The differential diagnosis associated with the presentation includes chronic urinary incontinence Lab Data [facility] Lab Attestation statement: I reviewed the patient's lab results. 06/28/22 12:05 06/28/22 12:05 Labs: Lab Results 06/28/22 06/28/22 Range/Units 12:05 12:05 WBC 8.3 (4.8-10.8) X10*3/uL RBC 3.54 L (4.60-5.80) X10*6/uL Hgb 9.9 L (14.0-18.0) g/dl Hct 32.5 L (42.0-52.0) % MCV 91.8 (80.0-98.0) fL MCH 28.0 (27.0-33.0) pg MCHC 30.5 L (31.0-36.0) g/dl RDW 13.1 (11.0-16.0) % Plt Count 262 D (160-400) X10*3/uL MPV 9.0 L (9.4-12.4) fL Immature Gran % (Auto) 0.4 (0.0-0.4) % Neut % (Auto) 77.3 H (45-73) % Lymph % (Auto) 13.3 L (20-40) % [place] % (Auto) 5.0 (2-11) % Eos % (Auto) 3.6 (0-4) % Baso % (Auto) 0.4 (0-2) % Lymph # (Auto) 1.1 L (1.2-4.9) X10*3/uL [place] # (Auto) 0.4 (0.1-1.2) X10*3/uL Eos # (Auto) 0.3 (0.0-0.4) X10*3/uL Baso # (Auto) 0.0 (0.0-0.2) X10*3/uL Abs Immat Gran (auto) 0.03 (0.00-0.03) X10*3/uL Absolute Neuts (auto) 6.5 (2.0-8.3) x10*3/uL Absolute Nucleated RBC 0.000 (0.0-0.012) X10*3/uL Nucleated RBC % (auto) 0.0 (0.0-0.2) /100WBC Sodium 143 (135-145) mmol/L Potassium 5.0 (3.3-5.1) mmol/L Chloride 109 H (96-108) mmol/L Carbon Dioxide 25 (22-29) mmol/L Anion Gap 14 (12-20) BUN 24 H (9-16) mg/dL Creatinine 1.81 H (0.5-1.4) mg/dL Estim Creat Clear Calc 35.8 Estimated GFR 37 Random Glucose 140 H (60-115) mg/dL Calcium 9.4 (8.4-10.2) mg/dL Magnesium 2.0 (1.6-2.6) mg/dL Total Bilirubin 0.2 (0.0-1.0) mg/dL AST 10 (5-37) U/L ALT 7 (0-40) U/L Alkaline Phosphatase 73 (39-117) U/L Total Protein 6.4 L (6.5-8.0) g/dL Albumin 4.0 (3.5-5.0) g/dL Discharge Plan Discharge Clinical Impression: Increased urinary frequency Patient Disposition: Left Without Being Seen Discharge Date/Time: 06/28/22 15:29
[2022-06-28 12:08] LABS: MANUAL DIFF FLAG NO
[2022-06-28 12:10] LABS: Basophils Percent Auto 0.4 % (0-2); Eosinophils Absolute Auto 0.3 X10*3/uL (0.0-0.4); Eosinophils Percent Auto 3.6 % (0-4); Hematocrit 32.5 % (42.0-52.0); Hemoglobin 9.9 g/dl (14.0-18.0); Imm Gran Abs Auto 0.03 X10*3/uL (0.00-0.03); Imm Gran Pct Auto 0.4 % (0.0-0.4); Lymphocytes Absolute Auto 1.1 X10*3/uL (1.2-4.9); Lymphocytes Percent Auto 13.3 % (20-40); Mean Corpuscular HGB Conc 30.5 g/dl (31.0-36.0); Mean Corpuscular Volume 91.8 fL (80.0-98.0); Monocytes Absolute Auto 0.4 X10*3/uL (0.1-1.2); Neutrophils Absolute Auto 6.5 x10*3/uL (2.0-8.3); Neutrophils Percent Auto 77.3 % (45-73); Platelet Count 262 X10*3/uL (160-400); Red Blood Count 3.54 X10*6/uL (4.60-5.80); Red Cell Distribution Width 13.1 % (11.0-16.0); White Blood Count 8.3 X10*3/uL (4.8-10.8)
[2022-06-28 13:03] LABS: Alanine Aminotransferase 7 U/L (0-40); Alkaline Phosphatase 73 U/L (39-117); Anion Gap 14 (12-20); Aspartate Amino Transferase 10 U/L (5-37); Bilirubin Total 0.2 mg/dL (0.0-1.0); Blood Urea Nitrogen 24 mg/dL (9-16); Calcium 9.4 mg/dL (8.4-10.2); Carbon Dioxide 25 mmol/L (22-29); Chloride 109 mmol/L (96-108); Creatinine Clr Calc Pharmacy 35.8; Estimated Glomerular Filt Rate 37; Glucose Random 140 mg/dL (60-115); Sodium 143 mmol/L (135-145); Total Protein 6.4 g/dL (6.5-8.0)
== END 2022-06-28 15:29 | disposition left against medical advice (07) ==
PROVIDERS: Physician Assistant Medical; Emergency Provider Emergency Medicine; PCP Internal Medicine Medical Oncology
DX: R35.0 Frequency of micturition (principal); I12.9 Hypertensive chronic kidney disease with stage 1 through stage 4 chronic kidney disease, or unspecified chronic kidney disease; N18.30 Chronic kidney disease, stage 3 unspecified; Z85.46 Personal history of malignant neoplasm of prostate
CPT/HCPCS: 36415; 51798; 80053; 83735; 85025; 99283

== ENCOUNTER → 2022-07-08 10:31 | Outpatient (BNVA) | payer MEDICARE, SELFPAY | PROVIDERS: PCP Internal Medicine Medical Oncology; Visit Provider Surgery Vascular Surgery | DX: I73.9 Peripheral vascular disease, unspecified (principal) | CPT/HCPCS: 99212 ==

== ENCOUNTER 2022-07-09 14:10 | Outpatient (REF) | payer MEDICARE, SELFPAY ==
[2022-07-09 14:28] LABS: MANUAL DIFF FLAG NO
[2022-07-09 14:40] LABS: Basophils Absolute Auto 0.1 X10*3/uL (0.0-0.2); Basophils Percent Auto 0.8 % (0-2); Eosinophils Absolute Auto 0.3 X10*3/uL (0.0-0.4); Eosinophils Percent Auto 3.7 % (0-4); Hematocrit 33.5 % (42.0-52.0); Hemoglobin 10.2 g/dl (14.0-18.0); Imm Gran Abs Auto 0.02 X10*3/uL (0.00-0.03); Imm Gran Pct Auto 0.3 % (0.0-0.4); Lymphocytes Absolute Auto 1.7 X10*3/uL (1.2-4.9); Lymphocytes Percent Auto 21.2 % (20-40); Mean Corpuscular HGB Conc 30.4 g/dl (31.0-36.0); Mean Corpuscular Hemoglobin 27.3 pg (27.0-33.0); Mean Corpuscular Volume 89.8 fL (80.0-98.0); Mean Platelet Volume 9.2 fL (9.4-12.4); Monocytes Absolute Auto 0.6 X10*3/uL (0.1-1.2); Monocytes Percent Auto 8.1 % (2-11); Neutrophils Absolute Auto 5.2 x10*3/uL (2.0-8.3); Neutrophils Percent Auto 65.9 % (45-73); Platelet Count 301 X10*3/uL (160-400); Red Blood Count 3.73 X10*6/uL (4.60-5.80); Red Cell Distribution Width 13.2 % (11.0-16.0); White Blood Count 7.8 X10*3/uL (4.8-10.8)
[2022-07-09 14:59] LABS: Appearance Urine Turbid; Color Urine Yellow; Glucose Urine UA Negative (Negative); Leukocyte Esterase Urine Large (3+) (Negative); Nitrite Urine Negative (Negative); UMIC TRIGGER UA YES; Urine Blood Large (3+) (Negative); Urine Ketones Trace mg/dL (Negative); Urine Protein 300 (3+) mg/dL (Neg-Trace)
[2022-07-09 15:14] LABS: Alanine Aminotransferase < 6 U/L (0-40); Albumin Level 4.1 g/dL (3.5-5.0); Alkaline Phosphatase 74 U/L (39-117); Anion Gap 14 (12-20); Aspartate Amino Transferase 10 U/L (5-37); Bilirubin Total 0.2 mg/dL (0.0-1.0); Blood Urea Nitrogen 26 mg/dL (9-16); Calcium 9.5 mg/dL (8.4-10.2); Carbon Dioxide 25 mmol/L (22-29); Chloride 108 mmol/L (96-108); Estimated Glomerular Filt Rate 39; Glucose Random 99 mg/dL (60-115); Potassium 5.1 mmol/L (3.3-5.1); Sodium 142 mmol/L (135-145); Total Protein 6.5 g/dL (6.5-8.0)
[2022-07-09 15:39] LABS: Bacteria Urine 4+ (None Seen); Hyaline Casts Urine 0-2 /LPF (0-2); Squamous Epithelial Cell Urine 0-2 /HPF (0-2); WBC Urine >50 /HPF (0-5)
== END 2022-07-09 14:11 | disposition home or self-care (01) ==
LOC: HO.LAB 14:10
PROVIDERS: PCP Internal Medicine Medical Oncology; Visit Provider Internal Medicine Medical Oncology
DX: Z12.5 Encounter for screening for malignant neoplasm of prostate (principal); C61 Malignant neoplasm of prostate; E53.8 Deficiency of other specified B group vitamins; R30.0 Dysuria
CPT/HCPCS: 36415; 80053; 81001; 81003; 84153; 85025; 87086

== ENCOUNTER 2022-07-16 10:49 | Outpatient (REF) | payer MEDICARE, SELFPAY ==
[2022-07-16 11:47] LABS: Hematocrit 33.4 % (42.0-52.0); Hemoglobin 10.1 g/dl (14.0-18.0); Mean Corpuscular HGB Conc 30.2 g/dl (31.0-36.0); Mean Corpuscular Hemoglobin 27.3 pg (27.0-33.0); Mean Corpuscular Volume 90.3 fL (80.0-98.0); Platelet Count 317 X10*3/uL (160-400); Red Cell Distribution Width 13.5 % (11.0-16.0)
[2022-07-16 12:09] LABS: Anion Gap 16 (12-20); Blood Urea Nitrogen 25 mg/dL (9-16); Calcium 9.8 mg/dL (8.4-10.2); Carbon Dioxide 26 mmol/L (22-29); Chloride 107 mmol/L (96-108); Estimated Glomerular Filt Rate 37; Glucose Random 93 mg/dL (60-115); Iron 53 mcg/dL (45-160); Percent Iron Saturation 18 % (15-50); Potassium 5.5 mmol/L (3.3-5.1); Sodium 143 mmol/L (135-145); Total Iron Binding Capacity 295 mcg/dL (228-428); Unsaturated Iron Binding 242 ug/dL
[2022-07-16 12:16] LABS: Ferritin 35 ng/mL (20-250)
[2022-07-16 12:22] LABS: Prostate Specific Antigen 1.32 ng/mL (<0.05-4.0)
[2022-07-21 12:53] LABS: Testosterone, Total 3 ng/dL (250-1100)
== END 2022-07-16 10:50 | disposition home or self-care (01) ==
LOC: HO.LAB 10:49
PROVIDERS: Urology; Absent Provider Psychiatry & Neurology Neurology; PCP Internal Medicine Medical Oncology; Visit Provider Internal Medicine Hypertension Specialist
DX: Z12.5 Encounter for screening for malignant neoplasm of prostate (principal); R97.21 Rising PSA following treatment for malignant neoplasm of prostate; N18.30 Chronic kidney disease, stage 3 unspecified; D63.1 Anemia in chronic kidney disease; R30.0 Dysuria
CPT/HCPCS: 36415; 80048; 82728; 83540; 84153; 84403; 85027; 87086

== ENCOUNTER → 2022-08-20 13:07 | Outpatient (BNVA) | payer MEDICARE, SELFPAY | PROVIDERS: PCP Internal Medicine Medical Oncology; Visit Provider Urology | DX: C61 Malignant neoplasm of prostate (principal); R97.21 Rising PSA following treatment for malignant neoplasm of prostate | CPT/HCPCS: 99212 ==

== ENCOUNTER 2022-08-28 09:15 | Outpatient (REF) | payer MEDICARE, SELFPAY ==
[2022-08-28 09:32] LABS: MANUAL DIFF FLAG NO
[2022-08-28 10:09] LABS: Basophils Percent Auto 0.6 % (0-2); Eosinophils Absolute Auto 0.3 X10*3/uL (0.0-0.4); Eosinophils Percent Auto 4.7 % (0-4); Hematocrit 31.6 % (42.0-52.0); Hemoglobin 9.6 g/dl (14.0-18.0); Imm Gran Abs Auto 0.02 X10*3/uL (0.00-0.03); Imm Gran Pct Auto 0.3 % (0.0-0.4); Lymphocytes Absolute Auto 1.4 X10*3/uL (1.2-4.9); Lymphocytes Percent Auto 20.2 % (20-40); Mean Corpuscular HGB Conc 30.4 g/dl (31.0-36.0); Mean Corpuscular Hemoglobin 27.7 pg (27.0-33.0); Mean Corpuscular Volume 91.1 fL (80.0-98.0); Mean Platelet Volume 9.8 fL (9.4-12.4); Monocytes Absolute Auto 0.5 X10*3/uL (0.1-1.2); Monocytes Percent Auto 7.7 % (2-11); Neutrophils Absolute Auto 4.5 x10*3/uL (2.0-8.3); Neutrophils Percent Auto 66.5 % (45-73); Platelet Count 278 X10*3/uL (160-400); Red Blood Count 3.47 X10*6/uL (4.60-5.80); Red Cell Distribution Width 14.3 % (11.0-16.0); White Blood Count 6.8 X10*3/uL (4.8-10.8)
[2022-08-28 10:39] LABS: Alanine Aminotransferase 6 U/L (0-40); Albumin Level 3.9 g/dL (3.5-5.0); Alkaline Phosphatase 71 U/L (39-117); Anion Gap 12 (12-20); Aspartate Amino Transferase 10 U/L (5-37); Bilirubin Total 0.2 mg/dL (0.0-1.0); Blood Urea Nitrogen 25 mg/dL (9-16); Calcium 9.4 mg/dL (8.4-10.2); Carbon Dioxide 27 mmol/L (22-29); Chloride 107 mmol/L (96-108); Estimated Glomerular Filt Rate 37; Glucose Random 106 mg/dL (60-115); Potassium 4.6 mmol/L (3.3-5.1); Sodium 141 mmol/L (135-145)
[2022-08-28 11:00] LABS: Prostate Specific Antigen 0.93 ng/mL (<0.05-4.0); Vitamin B12 581 pg/mL (200-900)
== END 2022-08-28 09:16 | disposition home or self-care (01) ==
LOC: HO.LAB 09:15
PROVIDERS: PCP Internal Medicine Medical Oncology; Visit Provider Internal Medicine Medical Oncology
DX: Z12.5 Encounter for screening for malignant neoplasm of prostate (principal); C61 Malignant neoplasm of prostate; D50.9 Iron deficiency anemia, unspecified; E53.8 Deficiency of other specified B group vitamins; S24.114A 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, initial encounter
CPT/HCPCS: 36415; 80053; 82607; 84153; 85025

== ENCOUNTER 2022-09-17 07:13 | Outpatient (REF) | payer MEDICARE, SELFPAY ==
[2022-09-17 07:24] LABS: MANUAL DIFF FLAG NO
[2022-09-17 08:09] LABS: Basophils Absolute Auto 0.1 X10*3/uL (0.0-0.2); Basophils Percent Auto 0.8 % (0-2); Eosinophils Absolute Auto 0.4 X10*3/uL (0.0-0.4); Eosinophils Percent Auto 4.9 % (0-4); Hematocrit 31.9 % (42.0-52.0); Hemoglobin 9.7 g/dl (14.0-18.0); Imm Gran Abs Auto 0.03 X10*3/uL (0.00-0.03); Imm Gran Pct Auto 0.4 % (0.0-0.4); Lymphocytes Absolute Auto 1.7 X10*3/uL (1.2-4.9); Lymphocytes Percent Auto 22.5 % (20-40); Mean Corpuscular HGB Conc 30.4 g/dl (31.0-36.0); Mean Corpuscular Hemoglobin 27.5 pg (27.0-33.0); Mean Corpuscular Volume 90.4 fL (80.0-98.0); Mean Platelet Volume 9.8 fL (9.4-12.4); Monocytes Absolute Auto 0.6 X10*3/uL (0.1-1.2); Monocytes Percent Auto 7.9 % (2-11); Neutrophils Absolute Auto 4.9 x10*3/uL (2.0-8.3); Neutrophils Percent Auto 63.5 % (45-73); Platelet Count 309 X10*3/uL (160-400); Red Blood Count 3.53 X10*6/uL (4.60-5.80); Red Cell Distribution Width 14.4 % (11.0-16.0); White Blood Count 7.7 X10*3/uL (4.8-10.8)
[2022-09-17 08:54] LABS: Alanine Aminotransferase 5 U/L (0-40); Alkaline Phosphatase 72 U/L (39-117); Anion Gap 12 (12-20); Aspartate Amino Transferase 10 U/L (5-37); Bilirubin Total 0.3 mg/dL (0.0-1.0); Blood Urea Nitrogen 26 mg/dL (9-16); Calcium 9.4 mg/dL (8.4-10.2); Carbon Dioxide 29 mmol/L (22-29); Chloride 109 mmol/L (96-108); Estimated Glomerular Filt Rate 38; Glucose Random 94 mg/dL (60-115); Potassium 5.1 mmol/L (3.3-5.1); Sodium 145 mmol/L (135-145); Total Protein 6.2 g/dL (6.5-8.0)
[2022-09-17 09:22] LABS: Ferritin 21 ng/mL (20-250); Prostate Specific Antigen 1.04 ng/mL (<0.05-4.0); Vitamin B12 698 pg/mL (200-900)
== END 2022-09-17 07:14 | disposition home or self-care (01) ==
LOC: HO.LAB 07:13
PROVIDERS: PCP Internal Medicine Medical Oncology; Visit Provider Internal Medicine Medical Oncology
DX: Z12.5 Encounter for screening for malignant neoplasm of prostate (principal); D50.9 Iron deficiency anemia, unspecified; C61 Malignant neoplasm of prostate; I10 Essential (primary) hypertension; E53.8 Deficiency of other specified B group vitamins
CPT/HCPCS: 36415; 80053; 82607; 82728; 84153; 85025

== ENCOUNTER 2022-10-05 04:27 | Emergency (ER) | payer MEDICARE, SELFPAY ==
[2022-10-05 04:29] VITALS: BP 170/93; PULSE 110; RESP 18; TEMP 36.1; O2SAT 99; BMI 21.2
--- NOTE | 2022-10-05 06:33 | ED.MALEGU ---
HPI - Male Genitourinary General Chief complaint: Urogenital-Male Stated complaint: UTI Time Seen by Provider: 10/05/22 06:32 Source: patient and RN notes reviewed Mode of arrival: ambulatory Limitations: no limitations History of Present Illness HPI Narrative: This is a 14-gwsb-bmd-male, with a past medical history of CHF, CKD, history of prostate cancer, HTN, HLD, presenting to the emergency department with complaints of inability to urinate and suprapubic pressure since 5:00 a.m. last night. Patient reports he realized he could not urinate around dinner worsen overnight reporting lower suprapubic pain and pressure. Since his arrival upon the emergency department he has been able to urinate and no longer has suprapubic pressure. He reports that his baseline he typically has urinary incontinence since having prostate cancer with treatment. He has a history of urinary retention one time before however this resolved at home after drinking water. Denies any fevers or chills. Denies any hematuria or burning sensation. He has a recent diagnosis of bone cancer in his back which is currently being worked up with through [facility], is scheduled to have a bone biopsy performed next week. No other complaints or concerns at this time. Onset (ago): hour(s) Duration: constant Severity: moderate Quality: aching Relieving factors: urination Exacerbating factors: none Associated symptoms: Reports denies other symptoms Related Data Home Medications Medication Instructions Recorded Confirmed acetaminophen 325 mg tablet 650 mg PO Q6H PRN Pain 03/04/22 05/20/22 ferrous gluconate 324 mg (38 mg 1 tab PO QAM 03/04/22 05/20/22 iron) tablet Previous Rx's Medication Instructions Recorded folic acid 1 mg tablet 1 mg PO DAILY 30 days #30 tabs 03/07/22 oxycodone-acetaminophen 5 mg-325 1 tab PO Q6H PRN pain #10 tabs 03/07/22 mg tablet (Percocet) sulfamethoxazole 800 1 tab PO Q12H #20 tabs 03/07/22 mg-trimethoprim 160 mg tablet (Bactrim DS) pentoxifylline 400 mg 400 mg PO BID 90 days #180 tabs 05/20/22 tablet,extended release vitamin E (dl, acetate) 450 mg 450 mg PO DAILY 90 days #90 caps 05/20/22 (1,000 unit) capsule cefuroxime axetil 500 mg tablet 500 mg PO BID #14 tabs 10/05/22 Allergies Allergy/AdvReac Type Severity Reaction Status Date / Time No Known Allergies Allergy Verified 08/20/22 13:30 [No Known Allergies*] Review of Systems Review of Systems: Constitutional: No Weight loss, No Fever, No Chills, No Night Sweats, No Fatigue, No Malaise ENT/Mouth: No Hearing loss, No Ear Pain, No Nasal Congestion, No Sinus Pain, No Hoarseness, No sore throat, No Rhinorrhea, No Swallowing Difficulty Eyes: No Eye Pain, No Swelling, No Redness, No Foreign Body, No Discharge, No Vision Changes Cardiovascular: No Chest Pain, No SOB, No Dyspnea on Exertion, No Orthopnea, No Edema, No Palpitations Respiratory: No Cough, No Sputum, No Wheezing, No Smoke Exposure, No Dyspnea Gastrointestinal: No Nausea, No Vomiting, No Diarrhea, No Constipation, + Abdominal pain (pressure), No Hematochezia, No Melena Genitourinary: No irregular bleeding, No Dysuria, No Urinary Frequency, No Hematuria, + Urinary Incontinence/retention, No Urgency, No Flank Pain, No Urinary Flow Changes, No Hesitancy Musculoskeletal: No joint pain, No Myalgias, No Joint Swelling Skin: No Skin Lesions, No rash Neuro: No Weakness, No Numbness, No Paresthesias, No Loss of Consciousness, No Dizziness, No Headache Psych: No Anxiety/Panic, No Depression, No SI/HI/AH/VH, No Social Issues, Heme/Lymph: No Bruising, No Bleeding,No Lymphadenopathy Endocrine: No Polyuria, No Polydipsia, No Temperature Intolerance Yes all other systems are reviewed and are negative Constitutional: Constitutional: Reports as per HPI [facility] Past Medical History Medical History [place] Hematuria Hypercholesteremia Hypertension Kidney disease Macular degeneration Prostate cancer Prostate cancer Stenosis of lumbosacral spine Urgency incontinence Surgical History History of back surgery History of penile implant History of prostate surgery Spinal surgery in prior 3 months Family History Family History Other No family history of coronary artery disease Social History Social History Household Members: Spouse Housing: House Do you presently have visiting nurse or other home services: No Alcohol intake: former Patient Tobacco Use Status: Current someday Tobacco user Smoking Start Date: 06/18/61 Tobacco use type: Cigarette Cigarette Packs Per Day: 0.5 Cigarettes Per Day: 2 Years Smoked: 60 e-Cigarette/Vaping Use: Never Used Second Hand Smoke Exposure: No Advance Directives: Yes Advance Directives on File: Yes Advance Directives Date on File: 02/19/21 service: Yes Current occupational status: retired Physical Exam Vital Signs: Vital Signs: Last Vital Signs Temp 97 F 10/05/22 04:29 Pulse 110 H 10/05/22 04:29 Resp 18 10/05/22 04:29 BP 170/93 H 10/05/22 04:29 Pulse Ox 99 10/05/22 04:29 O2 Del Method Room Air 10/05/22 04:29 BMI result Body Mass Index 21.2 Const: General: cooperative, comfortable and no acute distress Orientation/consciousness: patient oriented x3 Limitations: no limitations HEENT: Head: Yes normal to inspection, Yes normocephalic and Yes atraumatic Ears: hearing grossly normal bilaterally General nose exam: Normal external nose present Face and sinus: Yes normal facial exam Mouth: Normal oral and palatal mucosa present, oropharynx normal and moist mucous membranes Throat: Yes posterior oropharynx normal Eyes: General: appearance normal, both eyes and all related structures Eyelids: Yes eyelids normal Conjunctivae: conjunctivae normal Sclerae: sclerae normal Pupils: Equal, round and reactive pupils present EOM: EOMs intact bilaterally Neck: Neck: Yes normal visual inspection, Yes full ROM and Yes no lymphadenopathy Lymphatic: no lymphadenopathy noted Chest: Chest palpation & inspection: normal inspection of the chest Resp: Effort & Inspection: normal respiratory effort and able to speak in complete sentences Auscultation: clear to auscultation bilaterally, no crackles, no rales, no rhonchi and no wheezes Cardio: Rate: regular rate Rhythm: regular rhythm Heart sounds: S1 normal heart sound present and S2 normal heart sound present GI: Other: Patient has mild suprapubic tenderness with palpation. No rebound or guarding. Normoactive bowel sounds. Inspection: Yes normal to inspection Skin: General skin exam: no rashes or lesions noted Trauma: no lacerations or abrasions Wounds: no wounds Neuro: General: patient oriented x3 and moves all extremities Cranial nerves: Yes Equal, round and reactive pupils present Extrem: General: Yes normal to inspection Right upper extremity: normal to inspection Left upper extremity: normal to inspection Right lower extremity: normal to inspection Left lower extremity: normal to inspection Course Reevaluation(s) Reevaluation #1: Urinalysis returns with evidence of urinary tract infection. Patient has mild suprapubic tenderness on examination. Pt is nontoxic appearing, vital signs stable. Patient has urinated twice since being in the emergency department today without difficulty. Will treat for UTI, advised pt to drink plenty of fluids and get plenty of rest, complete full course of antibiotics as directed. Advised follow-up with primary care physician and his urologist, Dr. Dover, outpatient. Given return precautions patient understands and agrees with plan. Time: 08:10 Medical Decision Making Medical Decision Making [facility] Narrative: This is a 72-year-old male, with a past medical history of CHF, CKD, history of prostate cancer, HTN, HLD, presenting to the emergency department for urinary retention since yesterday. He states that since 5:00 p.m. last night he has been unable to urinate. He states that he has a history of this once before which previously resolved on its own after drinking lots of water. He denies any fevers or chills. Upon waiting for assessment in the emergency department patient was able to urinate, bladder scan was performed which revealed 78cc post void. Patient has mild suprapubic tenderness on examination, no CVA tenderness. Patient has had no fevers or chills considered pyelonephritis however given presentation, vital signs, no CVA tenderness, this is unlikely. Plan: Bladder scan, urinalysis Differential Diagnosis Differential Diagnoses: The differential diagnosis associated with the presentation includes Urinary retention, urinary tract infection, urinary incontinence, nephrolithiasis, pyelonephritis - less likely, obstructed uropathy Admission/Observation Consideration of admission/observation: Escalation of care including admission/observation considered Lab Data [facility] Lab Attestation statement: I reviewed the patient's lab results. Labs: Lab Results 10/05/22 Range/Units 07:07 Urine Color Yellow Urine Appearance Turbid Urine pH 6.0 (5.0-9.0) Ur Specific [place] 1.020 (1.005-1.025) Urine Protein 300 (3+) H (Neg-Trace) mg/dL Urine Glucose (UA) Negative (Negative) mg/dL Urine Ketones Negative (Negative) mg/dL Urine Blood Moderate (2+) H (Negative) Urine Nitrite Negative (Negative) Ur Leukocyte Esterase Large (3+) H (Negative) Urine RBC >20 H (0-2) /HPF Urine WBC >50 H (0-5) /HPF Ur Squamous Epith Cells 0-2 (0-2) /HPF Urine Bacteria 3+ (None Seen) Hyaline Casts 0-2 (0-2) /LPF Radiology Impression Discussion of test interpretation with radiology: I have reviewed the radiologist's reading. External Record Review External record reviewed: Inpatient record, Office record, Outpatient record, Prior outpatient labs, Prior outpatient radiology, Primary care record and Outside ED record Discharge Plan Discharge Clinical Impression: Urinary tract infection Patient Disposition: Home, Self-Care Instructions: Urinary Tract Infection in Men (ED) Additional Instructions: Take entire course of antibiotics as directed. Complete the full course even if your symptoms improve. We are sending her urine out for further testing we will call you with any abnormal results. Please follow-up with Dr. Dover. If any new or worsening symptoms occur please return for re-evaluation Prescriptions: New cefuroxime axetil 500 mg tablet 500 mg PO BID Qty: 14 0RF No Action ferrous gluconate 324 mg (38 mg iron) tablet 1 tab PO QAM acetaminophen 325 mg Tablet 650 mg PO Q6H PRN (Reason: Pain) folic acid 1 mg tablet 1 mg PO DAILY 30 Days Qty: 30 0RF sulfamethoxazole-trimethoprim [Bactrim DS] 800-160 mg tablet 1 tab PO Q12H Qty: 20 0RF oxycodone-acetaminophen [Percocet] 5-325 mg tablet 1 tab PO Q6H PRN (Reason: pain) Qty: 10 0RF Rx Instructions: Partial Fill upon patient request. vitamin E (dl, acetate) 450 mg (1,000 unit) capsule 450 mg PO DAILY 90 Days Qty: 90 1RF pentoxifylline 400 mg tablet extended release 400 mg PO BID 90 Days Qty: 180 1RF Rx Instructions: administer with meals Interventions: ED Discharge Assessment Last Done: 10/05/22 08:22 Discharge Date/Time: 10/05/22 08:24
--- NOTE | 2022-10-05 07:09 | PC.NURSE ---
Bladder scan conducted in room and bladder scan showed 87cc of urine residual. made aware.
[2022-10-05 07:42] LABS: Appearance Urine Turbid; Color Urine Yellow; Glucose Urine UA Negative (Negative); Leukocyte Esterase Urine Large (3+) (Negative); Nitrite Urine Negative (Negative); UMIC TRIGGER UACC YES; Urine Blood Moderate (2+) (Negative); Urine Ketones Negative (Negative); Urine Protein 300 (3+) mg/dL (Neg-Trace)
[2022-10-05 07:48] LABS: Bacteria Urine 3+ (None Seen); Hyaline Casts Urine 0-2 /LPF (0-2); RBC Urine >20 /HPF (0-2); Squamous Epithelial Cell Urine 0-2 /HPF (0-2); UACC Culture Trigger YES; WBC Urine >50 /HPF (0-5)
--- NOTE | 2022-10-05 08:21 | PC.NURSE ---
alert, speech clear, skin warm pale and dry, has had 0 complaints since 0700, pt states discomfort subsided after urinating,
== END 2022-10-05 08:24 | disposition home or self-care (01) ==
PROVIDERS: Emergency Provider Internal Medicine; PCP Internal Medicine Medical Oncology
DX: N39.0 Urinary tract infection, site not specified (principal); F17.210 Nicotine dependence, cigarettes, uncomplicated; Z71.6 Tobacco abuse counseling; Z79.899 Other long term (current) drug therapy
CPT/HCPCS: 51702; 51798; 81001; 87086; 99282; 99283

== ENCOUNTER 2022-10-21 06:28 | Outpatient (REF) | payer MEDICARE, SELFPAY ==
[2022-10-21 06:38] LABS: MANUAL DIFF FLAG NO
[2022-10-21 07:45] LABS: Basophils Absolute Auto 0.1 X10*3/uL (0.0-0.2); Basophils Percent Auto 0.9 % (0-2); Eosinophils Absolute Auto 0.4 X10*3/uL (0.0-0.4); Eosinophils Percent Auto 4.9 % (0-4); Hematocrit 33.6 % (42.0-52.0); Hemoglobin 10.1 g/dl (14.0-18.0); Imm Gran Abs Auto 0.04 X10*3/uL (0.00-0.03); Imm Gran Pct Auto 0.5 % (0.0-0.4); Lymphocytes Absolute Auto 1.8 X10*3/uL (1.2-4.9); Lymphocytes Percent Auto 20.9 % (20-40); Mean Corpuscular HGB Conc 30.1 g/dl (31.0-36.0); Mean Corpuscular Hemoglobin 27.6 pg (27.0-33.0); Mean Corpuscular Volume 91.8 fL (80.0-98.0); Mean Platelet Volume 9.9 fL (9.4-12.4); Monocytes Absolute Auto 0.5 X10*3/uL (0.1-1.2); Monocytes Percent Auto 6.1 % (2-11); Neutrophils Absolute Auto 5.7 x10*3/uL (2.0-8.3); Neutrophils Percent Auto 66.7 % (45-73); Platelet Count 383 X10*3/uL (160-400); Red Blood Count 3.66 X10*6/uL (4.60-5.80); Red Cell Distribution Width 13.3 % (11.0-16.0); White Blood Count 8.6 X10*3/uL (4.8-10.8)
[2022-10-21 08:14] LABS: Alanine Aminotransferase 6 U/L (0-40); Alkaline Phosphatase 73 U/L (39-117); Anion Gap 16 (12-20); Aspartate Amino Transferase 10 U/L (5-37); Bilirubin Total 0.2 mg/dL (0.0-1.0); Blood Urea Nitrogen 23 mg/dL (9-16); Calcium 9.8 mg/dL (8.4-10.2); Carbon Dioxide 26 mmol/L (22-29); Chloride 107 mmol/L (96-108); Estimated Glomerular Filt Rate 39; Glucose Fasting 98 mg/dL (60-99); Sodium 144 mmol/L (135-145); Total Protein 7.1 g/dL (6.5-8.0)
[2022-10-26 11:54] LABS: Testosterone, Total 7 ng/dL (250-1100)
== END 2022-10-21 06:29 | disposition home or self-care (01) ==
LOC: HO.LAB 06:28
PROVIDERS: PCP Internal Medicine Medical Oncology; Visit Provider Internal Medicine Medical Oncology
DX: E53.8 Deficiency of other specified B group vitamins (principal); C61 Malignant neoplasm of prostate; D50.9 Iron deficiency anemia, unspecified
CPT/HCPCS: 36415; 80053; 84403; 85025

== ENCOUNTER 2022-11-14 11:57 | Outpatient (REF) | payer MEDICARE, SELFPAY ==
[2022-11-14 15:24] LABS: Prostate Specific Antigen 0.93 ng/mL (<0.05-4.0)
[2022-11-19 13:18] LABS: Testosterone, Total 2 ng/dL (250-1100)
== END 2022-11-14 11:58 | disposition home or self-care (01) ==
LOC: HO.LAB 11:57
PROVIDERS: Visit Provider Urology
DX: Z12.5 Encounter for screening for malignant neoplasm of prostate (principal); C61 Malignant neoplasm of prostate
CPT/HCPCS: 36415; 84153; 84403

== ENCOUNTER 2022-11-18 06:11 | Outpatient (REF) | payer MEDICARE, SELFPAY ==
[2022-11-18 06:28] LABS: MANUAL DIFF FLAG NO
[2022-11-18 07:20] LABS: Basophils Absolute Auto 0.1 X10*3/uL (0.0-0.2); Basophils Percent Auto 0.7 % (0-2); Eosinophils Absolute Auto 0.3 X10*3/uL (0.0-0.4); Eosinophils Percent Auto 5.1 % (0-4); Hematocrit 34.9 % (42.0-52.0); Hemoglobin 10.5 g/dl (14.0-18.0); Imm Gran Abs Auto 0.02 X10*3/uL (0.00-0.03); Imm Gran Pct Auto 0.3 % (0.0-0.4); Lymphocytes Absolute Auto 1.8 X10*3/uL (1.2-4.9); Lymphocytes Percent Auto 26.2 % (20-40); Mean Corpuscular HGB Conc 30.1 g/dl (31.0-36.0); Mean Corpuscular Hemoglobin 27.5 pg (27.0-33.0); Mean Corpuscular Volume 91.4 fL (80.0-98.0); Monocytes Absolute Auto 0.6 X10*3/uL (0.1-1.2); Monocytes Percent Auto 8.2 % (2-11); Neutrophils Percent Auto 59.5 % (45-73); Platelet Count 276 X10*3/uL (160-400); Red Blood Count 3.82 X10*6/uL (4.60-5.80); Red Cell Distribution Width 13.9 % (11.0-16.0); White Blood Count 6.7 X10*3/uL (4.8-10.8)
[2022-11-18 07:47] LABS: Alanine Aminotransferase 6 U/L (0-40); Albumin Level 4.1 g/dL (3.5-5.0); Alkaline Phosphatase 65 U/L (39-117); Anion Gap 13 (12-20); Aspartate Amino Transferase 10 U/L (5-37); Bilirubin Total 0.3 mg/dL (0.0-1.0); Blood Urea Nitrogen 23 mg/dL (9-16); Calcium 9.6 mg/dL (8.4-10.2); Carbon Dioxide 27 mmol/L (22-29); Chloride 108 mmol/L (96-108); Estimated Glomerular Filt Rate 36; Glucose Random 97 mg/dL (60-115); Sodium 143 mmol/L (135-145); Total Protein 6.8 g/dL (6.5-8.0)
[2022-11-18 08:09] LABS: Prostate Specific Antigen 0.79 ng/mL (<0.05-4.0); Vitamin B12 862 pg/mL (200-900)
== END 2022-11-18 06:12 | disposition home or self-care (01) ==
LOC: HO.LAB 06:11
PROVIDERS: Absent Provider Internal Medicine Hypertension Specialist; PCP Internal Medicine Medical Oncology; Visit Provider Internal Medicine Medical Oncology
DX: Z12.5 Encounter for screening for malignant neoplasm of prostate (principal); N18.30 Chronic kidney disease, stage 3 unspecified
CPT/HCPCS: 36415; 80053; 82607; 84153; 85025

== ENCOUNTER 2022-11-19 13:28 | Outpatient (AMB) | payer MEDICARE, SELFPAY ==
--- NOTE | 2022-11-19 13:29 | A.OFFVIS_ITS ---
Intake Intake Visit Reasons: 3m/labs(SET) Intake Note: Patient is present for Telephone labs Urology Med: Pentoxifylline Antibiotic Allergy: None Blood Thinner:none Allergies No Known Allergies [No Known Allergies*] Allergy (Verified 11/19/22 13:29) Medication List - Last Reconciled 11/19/22 by Ruddy Mace MD acetaminophen 650 mg PO Q6H PRN cefuroxime axetil 500 mg PO BID ferrous gluconate 1 tab PO QAM folic acid 1 mg PO DAILY 30 days oxycodone-acetaminophen 5-325 mg (Percocet) 1 tab PO Q6H PRN pentoxifylline ER 400 mg PO BID 90 days sulfamethoxazole-trimethoprim 800-160 mg (Bactrim DS) 1 tab PO Q12H vitamin E (dl, acetate) 450 mg PO DAILY 90 days HPI HPI Comments History of Present Illness Details Keshav is a pleasant male. He is a patient of Dr. Dickerson. He is seen for the following urologic condition - prostate cancer - urinary frequency and urgency Telemedicine Evaluation 15 min Consultation [employer] Dat Video attempted 11/23 PSA 0.8 T 2 Intermittent Hormone therapy - Last GnRH 01/23 Lesion in spine seen on scan biopsy confirmed prostate cancer. Seen by Dr Dickerson radiation oncology. He has continued to have good biochemical response from GnRH. PSA remains low, testosterone remains blocks. 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 Would recommend anti androgen. Spot radiation. Assessment with oncology for chemotherapy. Will plan for GnRH and Prolia injection in office Prostate cancer- EXBRT 05/26 Thoracic MRI T12 lesion Initial therapy external beam radiotherapy 2004. Rising PSA - salvage cryotherapy 2009 Subsequent intermittent hormone therapy PSA 01/21 <0.1, 04/22 <0.1 - 10/22 PSA < 0.1, T 2, 01/22 PSA <0.1, T 1, 04/23 PSA <0.1 T12, 10/23 2.8 212, 01/23 10.2 288, 04/24 P 1.8 T 3, 07/24 1.3 T 3, 11/23 0.8 T 2 Urinary urgency and frequency Secondary to prostate cancer therapy Radiation cystitis Trial of Toviaz with terazosin Failed tibial stimulation Failed oxybutynin, vesicare, toviaz [facility] Medical History [place] Hematuria Hypercholesteremia Hypertension Kidney disease Macular degeneration Prostate cancer Prostate cancer Stenosis of lumbosacral spine Urgency incontinence Surgical History History of back surgery History of penile implant History of prostate surgery Spinal surgery in prior 3 months Family History Other No family history of coronary artery disease Social History Household Members: Spouse Housing: House Do you presently have visiting nurse or other home services: No Alcohol intake: former Patient Tobacco Use Status: Current someday Tobacco user Smoking Start Date: 06/18/61 Tobacco use type: Cigarette Cigarette Packs Per Day: 0.5 Cigarettes Per Day: 2 Years Smoked: 60 e-Cigarette/Vaping Use: Never Used Second Hand Smoke Exposure: No Advance Directives Date on File: 02/19/21 service: Yes Current occupational status: retired Review of Systems Const All systems reviewed & are unremarkable except as noted in HPI and below Reports no additional complaints Resp Reports no additional complaints GI Reports no additional complaints Reports as per HPI Musc Reports no additional complaints Physical Exam Telemedicine evaluation Appropriate responses Regular breathing rate and rhythm HEENT Head: Yes normal to inspection Ears: hearing grossly normal bilaterally Eyes General: appearance normal, both eyes and all related structures Neck Neck: Yes normal visual inspection Chest Chest palpation & inspection: normal inspection of the chest Resp Effort & Inspection: normal respiratory effort and able to speak in complete sentences Assessment & Plan Assessment & Plan (1) Prostate cancer metastatic to bone: Code(s): C61 - Malignant neoplasm of prostate; C79.51 - Secondary malignant neoplasm of bone Plan Start abiraterone Oncology referral [facility] for chemotherapy Would benefit from the Lutitium however this appears to not be available Orders: Referrals Hematology & Oncology Referral C61 - Malignant neoplasm of prostate, C79.51 - Secondary malignant neoplasm of bone Medications: New prednisone 5 mg PO BID 60 tabs 5RF 30 days C61 - Malignant neoplasm of prostate, C77.2 - Secondary and unspecified malignant neoplasm of intra-abdominal lymph nodes, C79.51 - Secondary malignant neoplasm of bone abiraterone must be taken on empty stomach, at least 1 hr before or 2 hrs after a meal/food 1,000 mg (4 x 250 mg) PO DAILY 120 tabs 5RF 30 days C61 - Malignant neoplasm of prostate, C79.51 - Secondary malignant neoplasm of bone Patient Instructions: Imaging studies, laboratory and physical exam results were discussed and reviewed in detail. No major barriers to patient understanding were identified. An opportunity to ask questions regarding the treatment plan was provided. All questions were answered. The patient expressed understanding and agreement with the above treatment plan. The patient is aware they should contact our office by phone for worsening of their current condition or the appearance of new urologic symptoms. Compliance is encouraged with any medications and followup testing that is ordered. It is a privilege to participate in the urologic care of your patient. If you have any questions or concerns regarding treatment for the above conditions, or other urologic issues, please do not hesitate to contact me. The office telephone contact is [phone]. This note is constructed using voice recognition software. While every effort has been made to ensure accuracy vp global errors may have been included. Yours sincerely, Dr Ruddy Mace MD, SILAS [facility] - Urology Providers of Expert, Compassionate Care for the Genitourinary System Telehealth Telehealth Location of provider rendering services: practice address Location of patient: address on file Patient Identification confirmed using: Name, : Yes Telehealth method: video Patient verbally consented to treatment: Yes Patient verbally consented to billing insurance company: Yes Patient informed of any privacy concerns related to visit: Yes Coding Level of Care Code Tele Est Pt Level 3 (54899) Diagnoses Prostate cancer metastatic to bone C61; C79.51
== END 2022-11-19 15:30 | disposition home or self-care (01) ==
LOC: HO.HUSH 13:28
PROVIDERS: PCP Internal Medicine Medical Oncology; Visit Provider Urology
DX: C61 Malignant neoplasm of prostate (principal); C79.51 Secondary malignant neoplasm of bone
CPT/HCPCS: 99213

== ENCOUNTER → 2022-11-19 13:28 | Outpatient (BNVA) | payer MEDICARE, SELFPAY | PROVIDERS: PCP Internal Medicine Medical Oncology; Visit Provider Urology | DX: C61 Malignant neoplasm of prostate (principal); C79.51 Secondary malignant neoplasm of bone; R39.15 Urgency of urination; N30.40 Irradiation cystitis without hematuria | CPT/HCPCS: Q3014 ==

== ENCOUNTER 2022-12-03 10:54 | Outpatient (AMB) | payer MEDICARE, SELFPAY ==
--- NOTE | 2022-12-03 10:57 | AM.OFFVISNUR ---
Intake Intake Visit Reasons: GnRH/2w Allergies No Known Allergies [No Known Allergies*] Allergy (Verified 11/19/22 13:29) Office Judit Vo (6 month) Performing Provider: Ruddy Mace MD Administered by: Carine Olivas RN on 12/03/22 10:57 Dose Route Admin Location Lot Number Expiration Date NDC Pipe Line Gauger 45 mg subcut right arm [id number] 03/04/24 46091-572-59 [employer]. Coding Diagnoses Assessment & Plan Assessment & Plan Orders: Orders AMB Leuprolide Injection - Practice Supplied Today C61 - Malignant neoplasm of prostate
== END 2022-12-03 11:28 | disposition home or self-care (01) ==
PROVIDERS: PCP Internal Medicine Medical Oncology; Visit Provider Urology
DX: C61 Malignant neoplasm of prostate (principal)

== ENCOUNTER → 2022-12-03 10:54 | Outpatient (BNVA) | payer MEDICARE, SELFPAY | PROVIDERS: PCP Internal Medicine Medical Oncology; Visit Provider Urology | DX: C61 Malignant neoplasm of prostate (principal) | CPT/HCPCS: 96402; J9217 ==

== ENCOUNTER → 2022-12-09 08:37 | Outpatient (BNV) | payer MEDICARE, SELFPAY | PROVIDERS: PCP Internal Medicine Medical Oncology; Referring Provider Urology; Visit Provider Internal Medicine Medical Oncology | DX: C61 Malignant neoplasm of prostate (principal); C79.51 Secondary malignant neoplasm of bone | CPT/HCPCS: 99204; 99212; 99213; 99214 ==

== ENCOUNTER 2023-03-09 07:22 | Outpatient (REF) | payer MEDICARE, SELFPAY ==
[2023-03-09 09:02] LABS: PSA,Total (Free>4and<10) 0.24 ng/mL (0.00-4.00)
== END 2023-03-09 07:23 | disposition home or self-care (01) ==
LOC: HO.LAB 07:22
PROVIDERS: Urology; PCP Internal Medicine Medical Oncology; Visit Provider Psychiatry & Neurology Neurology
DX: C61 Malignant neoplasm of prostate (principal); Z12.5 Encounter for screening for malignant neoplasm of prostate
CPT/HCPCS: 36415; 84153

== ENCOUNTER 2023-03-10 07:29 | Outpatient (REF) | payer MEDICARE, SELFPAY ==
[2023-03-10 07:46] LABS: MANUAL DIFF FLAG NO
[2023-03-10 08:27] LABS: Basophils Absolute Auto 0.1 X10*3/uL (0.0-0.2); Eosinophils Absolute Auto 0.3 X10*3/uL (0.0-0.4); Eosinophils Percent Auto 5.8 % (0-4); Hemoglobin 10.9 g/dl (14.0-18.0); Imm Gran Abs Auto 0.02 X10*3/uL (0.00-0.03); Imm Gran Pct Auto 0.4 % (0.0-0.4); Lymphocytes Absolute Auto 0.7 X10*3/uL (1.2-4.9); Lymphocytes Percent Auto 13.5 % (20-40); Mean Corpuscular HGB Conc 30.3 g/dl (31.0-36.0); Mean Corpuscular Hemoglobin 29.1 pg (27.0-33.0); Mean Corpuscular Volume 96.3 fL (80.0-98.0); Mean Platelet Volume 9.6 fL (9.4-12.4); Monocytes Absolute Auto 0.5 X10*3/uL (0.1-1.2); Monocytes Percent Auto 8.8 % (2-11); Neutrophils Absolute Auto 3.6 x10*3/uL (2.0-8.3); Neutrophils Percent Auto 70.5 % (45-73); Platelet Count 235 X10*3/uL (160-400); Red Blood Count 3.74 X10*6/uL (4.60-5.80); Red Cell Distribution Width 13.8 % (11.0-16.0); White Blood Count 5.1 X10*3/uL (4.8-10.8)
[2023-03-10 08:52] LABS: Alanine Aminotransferase 10 U/L (0-40); Alkaline Phosphatase 73 U/L (39-117); Anion Gap 12 (12-20); Aspartate Amino Transferase 14 U/L (5-37); Bilirubin Total 0.2 mg/dL (0.0-1.0); Blood Urea Nitrogen 24 mg/dL (9-16); Calcium 8.9 mg/dL (8.4-10.2); Carbon Dioxide 26 mmol/L (22-29); Chloride 113 mmol/L (96-108); Estimated Glomerular Filt Rate 41; Glucose Random 90 mg/dL (60-115); Potassium 5.5 mmol/L (3.3-5.1); Sodium 145 mmol/L (135-145); Total Protein 6.6 g/dL (6.5-8.0)
[2023-03-10 09:10] LABS: Ferritin 24 ng/mL (20-250)
[2023-03-10 10:06] LABS: Folate 3.5 ng/mL (> or = 4.0); Prostate Specific Antigen 0.21 ng/mL (<0.05-4.0); Vitamin B12 860 pg/mL (200-900)
== END 2023-03-10 07:30 | disposition home or self-care (01) ==
LOC: HO.LAB 07:29
PROVIDERS: PCP Internal Medicine Medical Oncology; Visit Provider Internal Medicine Medical Oncology
DX: C61 Malignant neoplasm of prostate (principal); E53.8 Deficiency of other specified B group vitamins; I10 Essential (primary) hypertension; D50.9 Iron deficiency anemia, unspecified; Z12.5 Encounter for screening for malignant neoplasm of prostate
CPT/HCPCS: 36415; 80053; 82607; 82728; 82746; 84153; 85025

== ENCOUNTER 2023-03-13 14:51 | Outpatient (AMB) | payer MEDICARE, SELFPAY ==
--- NOTE | 2023-03-13 15:04 | MHC.OFFVIS ---
Intake Intake Visit Reasons: PSA Follow Up(set) Intake Note: Patient is Present for Follow Up Urology Medication: None Antibiotic Allergies: None Blood Thinners:None Allergies No Known Allergies [No Known Allergies*] Allergy (Verified 01/20/23 15:33) HPI HPI Comments History of Present Illness Details Keshav is a pleasant male. He is a patient of Dr. Dickerson. He is seen for the following urologic condition - prostate cancer - urinary frequency and urgency 03/26 P 0.24 Discussed control Repeat labs in 3 months Focus on testosterone level 01/24 PSMA - T12 lesion positive Possible UTI - prescription provided Prostate cancer- EXBRT 05/26 Thoracic MRI T12 lesion Lesion in spine seen on scan biopsy confirmed prostate cancer. Seen by Dr Dickerson radiation oncology. He has continued to have good biochemical response from GnRH. PSA remains low, testosterone remains blocks. 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 Would recommend anti androgen. Spot radiation. Assessment with oncology for chemotherapy. Intermittent Hormone therapy - Last GnRH 01/23 Initial therapy external beam radiotherapy 2004. Rising PSA - salvage cryotherapy 2009 Subsequent intermittent hormone therapy PSA 01/21 <0.1, 04/22 <0.1, 10/22 PSA < 0.1, T 2, 01/22 PSA <0.1, T 1, 04/23 PSA <0.1 T12, 10/23 2.8 212, 01/23 10.2 288, 04/24 P 1.8 T 3, 07/24 1.3 T 3, 11/23 0.8 T 2 Urinary urgency and frequency Secondary to prostate cancer therapy Radiation cystitis Trial of Toviaz with terazosin Failed tibial stimulation Failed oxybutynin, vesicare, toviaz [facility] Medical History Stenosis of lumbosacral spine [place] Hypertension Hypercholesteremia Kidney disease Prostate cancer Macular degeneration Hematuria Urgency incontinence Prostate cancer Surgical History Spinal surgery in prior 3 months History of penile implant History of prostate surgery History of back surgery Family History Other No family history of coronary artery disease Social History Household Members: Spouse Housing: House Do you presently have visiting nurse or other home services: No Alcohol intake: former Patient Tobacco Use Status: Current someday Tobacco user Smoking Start Date: 06/18/61 Tobacco use type: Cigarette Cigarette Packs Per Day: 0.5 Years Smoked: 60 e-Cigarette/Vaping Use: Never Used Second Hand Smoke Exposure: No Advance Directives Date on File: 02/19/21 service: Yes Current occupational status: retired Review of Systems Const Denies chills and Denies fever(s) Card Reports no additional complaints and Denies syncope Resp Denies cough GI Denies abdominal pain and Denies heartburn Reports as per HPI and Denies change in libido Neuro Denies syncope Psych Denies change in libido Endo Denies change in libido Physical Exam Const General: cooperative, healthy appearing, comfortable and no acute distress Orientation/consciousness: patient oriented x3 HEENT Face and sinus: Yes normal facial exam Mouth: moist mucous membranes Neck Neck: Yes normal visual inspection, Yes full ROM and Yes trachea midline Chest Chest palpation & inspection: normal inspection of the chest Resp Effort & Inspection: normal respiratory effort, able to speak in complete sentences and no respiratory distress GI Inspection: Yes normal to inspection Back/Spine/Pelvis Cervical Spine: normal cervical lordosis Thoracic/Lumbar Spine: thoracic and lumbar spine normal to inspection Skin General skin exam: no rashes or lesions noted Neuro General: patient oriented x3, gait normal, tone normal and moves all extremities Extrem General: Yes normal to inspection and Yes capillary refill normal Assessment & Plan Assessment & Plan (1) Complicated urinary tract infection: Code(s): N39.0 - Urinary tract infection, site not specified (2) Prostate cancer metastatic to bone: Code(s): C61 - Malignant neoplasm of prostate; C79.51 - Secondary malignant neoplasm of bone Plan Possible UTI Orders: Orders Prostate Specific Antigen 3 Months C61 - Malignant neoplasm of prostate, C79.51 - Secondary malignant neoplasm of bone Testosterone, Total 3 Months C61 - Malignant neoplasm of prostate, C79.51 - Secondary malignant neoplasm of bone Medications: New levofloxacin 500 mg PO DAILY 7 tabs 0RF 7 days N39.0 - Urinary tract infection, site not specified Patient Instructions: Imaging studies, laboratory and physical exam results were discussed and reviewed in detail. No major barriers to patient understanding were identified. An opportunity to ask questions regarding the treatment plan was provided. All questions were answered. The patient expressed understanding and agreement with the above treatment plan. The patient is aware they should contact our office by phone for worsening of their current condition or the appearance of new urologic symptoms. Compliance is encouraged with any medications and followup testing that is ordered. It is a privilege to participate in the urologic care of your patient. If you have any questions or concerns regarding treatment for the above conditions, or other urologic issues, please do not hesitate to contact me. The office telephone contact is [phone]. This note is constructed using voice recognition software. While every effort has been made to ensure accuracy master merchandiser errors may have been included. Yours sincerely, Dr Ruddy Mace MD, SIL[facility] - Urology Providers of Expert, Compassionate Care for the Genitourinary System Coding Level of Care Code Est Pt Level 4 (95685) Diagnoses Complicated urinary tract infection N39.0 Prostate cancer metastatic to bone C61; C79.51
== END 2023-03-13 15:35 | disposition home or self-care (01) ==
PROVIDERS: PCP Internal Medicine Medical Oncology; Visit Provider Urology
DX: N39.0 Urinary tract infection, site not specified (principal); C61 Malignant neoplasm of prostate; C79.51 Secondary malignant neoplasm of bone
CPT/HCPCS: 99214

== ENCOUNTER → 2023-03-13 14:51 | Outpatient (BNVA) | payer MEDICARE, SELFPAY | PROVIDERS: PCP Internal Medicine Medical Oncology; Visit Provider Urology | DX: C61 Malignant neoplasm of prostate (principal); C79.51 Secondary malignant neoplasm of bone; R35.0 Frequency of micturition; R39.15 Urgency of urination; N30.40 Irradiation cystitis without hematuria; Z92.3 Personal history of irradiation | CPT/HCPCS: 99212 ==

== ENCOUNTER 2023-05-05 09:43 | Outpatient (REF) | payer MEDICARE, SELFPAY ==
[2023-05-05 10:03] LABS: MANUAL DIFF FLAG NO
[2023-05-05 10:19] LABS: Basophils Percent Auto 0.5 % (0-2); Eosinophils Absolute Auto 0.3 X10*3/uL (0.0-0.4); Hematocrit 33.7 % (42.0-52.0); Hemoglobin 10.6 g/dl (14.0-18.0); Imm Gran Abs Auto 0.02 X10*3/uL (0.00-0.03); Imm Gran Pct Auto 0.3 % (0.0-0.4); Lymphocytes Absolute Auto 0.8 X10*3/uL (1.2-4.9); Lymphocytes Percent Auto 13.5 % (20-40); Mean Corpuscular HGB Conc 31.5 g/dl (31.0-36.0); Mean Corpuscular Hemoglobin 29.2 pg (27.0-33.0); Mean Corpuscular Volume 92.8 fL (80.0-98.0); Mean Platelet Volume 9.2 fL (9.4-12.4); Monocytes Absolute Auto 0.6 X10*3/uL (0.1-1.2); Monocytes Percent Auto 9.1 % (2-11); Neutrophils Absolute Auto 4.3 x10*3/uL (2.0-8.3); Neutrophils Percent Auto 71.6 % (45-73); Platelet Count 222 X10*3/uL (160-400); Red Blood Count 3.63 X10*6/uL (4.60-5.80); Red Cell Distribution Width 13.4 % (11.0-16.0)
[2023-05-05 11:23] LABS: Alanine Aminotransferase 9 U/L (0-40); Albumin Level 3.9 g/dL (3.5-5.0); Alkaline Phosphatase 69 U/L (39-117); Anion Gap 11 (12-20); Aspartate Amino Transferase 14 U/L (5-37); Bilirubin Total 0.2 mg/dL (0.0-1.0); Blood Urea Nitrogen 22 mg/dL (9-16); Calcium 8.6 mg/dL (8.4-10.2); Carbon Dioxide 27 mmol/L (22-29); Chloride 110 mmol/L (96-108); Estimated Glomerular Filt Rate 44; Glucose Random 90 mg/dL (60-115); Potassium 4.8 mmol/L (3.3-5.1); Sodium 143 mmol/L (135-145); Total Protein 6.6 g/dL (6.5-8.0)
[2023-05-05 11:40] LABS: Ferritin 37 ng/mL (20-250)
[2023-05-05 12:20] LABS: Vitamin B12 788 pg/mL (200-900)
[2023-05-10 13:49] LABS: Testosterone, Free 0.2 pg/mL (30.0-135.0); Testosterone, Total 3 ng/dL (250-1100)
== END 2023-05-05 09:44 | disposition home or self-care (01) ==
LOC: HO.LAB 09:43
PROVIDERS: PCP Internal Medicine Medical Oncology; Visit Provider Internal Medicine Medical Oncology
DX: C61 Malignant neoplasm of prostate (principal); I10 Essential (primary) hypertension; D50.9 Iron deficiency anemia, unspecified; D51.0 Vitamin B12 deficiency anemia due to intrinsic factor deficiency
CPT/HCPCS: 36415; 80053; 82607; 82728; 84402; 84403; 85025

== ENCOUNTER 2023-05-12 13:54 | Outpatient (AMB) | payer MEDICARE, SELFPAY ==
[2023-05-12 13:57] VITALS: BP 132/64; BMI 21.2
--- NOTE | 2023-05-12 13:57 | HO.NEPHOV ---
HPI HPI Comments History of Present Illness Details Keshav is a elderly man with a history of prostate cancer status post radiation. He is here for follow-up. He has stage III CKD. Continues to smoke about half a pack a day. He continues have back pain and leg pain. Was seen by Dr. Rendon an RAUL was normal. He continues have increased urinary frequency. He is being actively followed by Urology. [facility] Medical History Stenosis of lumbosacral spine [place] Hypertension Hypercholesteremia Kidney disease Prostate cancer Macular degeneration Hematuria Urgency incontinence Prostate cancer Surgical History Spinal surgery in prior 3 months History of penile implant History of prostate surgery History of back surgery Family History Other No family history of coronary artery disease Social History Household Members: Spouse Housing: House Do you presently have visiting nurse or other home services: No Alcohol intake: former Patient Tobacco Use Status: Current someday Tobacco user Smoking Start Date: 06/18/61 Tobacco use type: Cigarette Cigarette Packs Per Day: 0.5 Years Smoked: 60 e-Cigarette/Vaping Use: Never Used Second Hand Smoke Exposure: No Advance Directives Date on File: 02/19/21 service: Yes Current occupational status: retired Vital Signs 05/12/23 13:57 Height 6 ft 2 in Weight 165 lb 8 oz BMI 21.2 BP 132/64 Blood Pressure Location Rt brachial Position Sitting Physical Exam Vital Signs: Last Vital Signs BP 132/64 05/12/23 13:57 BMI result Body Mass Index 21.2 Assessment & Plan Assessment & Plan (1) Malignant neoplasm prostate: Code(s): C61 - Malignant neoplasm of prostate (2) Anemia: Code(s): D64.9 - Anemia, unspecified (3) PAD (peripheral artery disease): Code(s): I73.9 - Peripheral vascular disease, unspecified (4) CKD (chronic kidney disease) stage 3, GFR 30-59 ml/min: Code(s): N18.30 - Chronic kidney disease, stage 3 unspecified (5) Hypertension: Code(s): I10 - Essential (primary) hypertension Plan Keshav has CKD 3. There has been a marginal improvement in renal function. Recent creatinine is 1.54 with EGFR 44 mL/minute. Goal is to slow the proximal disease Continue to avoid nephrotoxins including NSAIDs. Hypertension blood pressure controlled no changes are made to his medications Stand low-sodium diet. Anemia. Being followed by Dr. John he disease vitamin B12 injections. Continue 9 tablets. Discussed smoking cessation Coding Level of Care Code Est Pt Level 4 (03142) Diagnoses Malignant neoplasm prostate C61 Anemia D64.9 PAD (peripheral artery disease) I73.9 CKD (chronic kidney disease) stage 3, GFR 30-59 ml/min N18.30 Hypertension I10 Results Reviewed Nephrology Results: Hgb 10.6 g/dl (14.0-18.0) L 05/05/23 WBC 6.0 X10*3/uL (4.8-10.8) 05/05/23 Plt Count 222 X10*3/uL (160-400) 05/05/23 Sodium 143 mmol/L (135-145) 05/05/23 Potassium 4.8 mmol/L (3.3-5.1) 05/05/23 Chloride 110 mmol/L (96-108) H 05/05/23 Carbon Dioxide 27 mmol/L (22-29) 05/05/23 BUN 22 mg/dL (9-16) H 05/05/23 Creatinine 1.54 mg/dL (0.5-1.4) H 05/05/23 Calcium 8.6 mg/dL (8.4-10.2) 05/05/23
== END 2023-05-12 14:16 | disposition home or self-care (01) ==
PROVIDERS: PCP Internal Medicine Medical Oncology; Visit Provider Internal Medicine Hypertension Specialist
DX: C61 Malignant neoplasm of prostate (principal); D64.9 Anemia, unspecified; I73.9 Peripheral vascular disease, unspecified; N18.30 Chronic kidney disease, stage 3 unspecified; I10 Essential (primary) hypertension
CPT/HCPCS: 99214

== ENCOUNTER → 2023-05-12 13:54 | Outpatient (BNVA) | payer MEDICARE, SELFPAY | PROVIDERS: PCP Internal Medicine Medical Oncology; Visit Provider Internal Medicine Hypertension Specialist | DX: C61 Malignant neoplasm of prostate (principal); D64.9 Anemia, unspecified; I73.9 Peripheral vascular disease, unspecified; I12.9 Hypertensive chronic kidney disease with stage 1 through stage 4 chronic kidney disease, or unspecified chronic kidney disease; N18.30 Chronic kidney disease, stage 3 unspecified | CPT/HCPCS: 99212 ==

== ENCOUNTER 2023-06-09 12:18 | Outpatient (REF) | payer MEDICARE, SELFPAY ==
[2023-06-09 12:50] LABS: MANUAL DIFF FLAG NO
[2023-06-09 13:46] LABS: Basophils Percent Auto 0.6 % (0-2); Eosinophils Absolute Auto 0.3 X10*3/uL (0.0-0.4); Eosinophils Percent Auto 6.1 % (0-4); Hematocrit 35.6 % (42.0-52.0); Imm Gran Abs Auto 0.02 X10*3/uL (0.00-0.03); Imm Gran Pct Auto 0.4 % (0.0-0.4); Lymphocytes Absolute Auto 0.9 X10*3/uL (1.2-4.9); Mean Corpuscular HGB Conc 30.9 g/dl (31.0-36.0); Mean Corpuscular Hemoglobin 28.9 pg (27.0-33.0); Mean Corpuscular Volume 93.4 fL (80.0-98.0); Mean Platelet Volume 9.6 fL (9.4-12.4); Monocytes Absolute Auto 0.5 X10*3/uL (0.1-1.2); Monocytes Percent Auto 9.1 % (2-11); Neutrophils Absolute Auto 3.5 x10*3/uL (2.0-8.3); Neutrophils Percent Auto 66.8 % (45-73); Platelet Count 239 X10*3/uL (160-400); Red Blood Count 3.81 X10*6/uL (4.60-5.80); Red Cell Distribution Width 13.9 % (11.0-16.0); White Blood Count 5.3 X10*3/uL (4.8-10.8)
[2023-06-09 14:41] LABS: Alanine Aminotransferase 12 U/L (0-40); Albumin Level 4.1 g/dL (3.5-5.0); Alkaline Phosphatase 71 U/L (39-117); Anion Gap 15 (12-20); Aspartate Amino Transferase 16 U/L (5-37); Bilirubin Total 0.2 mg/dL (0.0-1.0); Blood Urea Nitrogen 23 mg/dL (9-16); Calcium 9.2 mg/dL (8.4-10.2); Carbon Dioxide 25 mmol/L (22-29); Chloride 109 mmol/L (96-108); Estimated Glomerular Filt Rate 35; Glucose Random 100 mg/dL (60-115); Potassium 5.6 mmol/L (3.3-5.1); Sodium 143 mmol/L (135-145); Total Protein 6.8 g/dL (6.5-8.0)
[2023-06-09 15:08] LABS: Folate 4.2 ng/mL (> or = 4.0); Vitamin B12 784 pg/mL (200-900)
== END 2023-06-09 12:19 | disposition home or self-care (01) ==
LOC: HO.LAB 12:18
PROVIDERS: PCP Internal Medicine Medical Oncology; Visit Provider Internal Medicine Medical Oncology
DX: C61 Malignant neoplasm of prostate (principal); D50.9 Iron deficiency anemia, unspecified; D51.0 Vitamin B12 deficiency anemia due to intrinsic factor deficiency; N18.32 Chronic kidney disease, stage 3b; Z12.5 Encounter for screening for malignant neoplasm of prostate
CPT/HCPCS: 36415; 80053; 82607; 82746; 84153; 85025

== ENCOUNTER 2023-06-25 10:58 | Outpatient (AMB) | payer MEDICARE, SELFPAY ==
--- NOTE | 2023-06-25 11:21 | A.OFFVIS_ITS ---
Intake Intake Visit Reasons: 3M PSA/Testo(set) Intake Note: Patient presents today for a follow-up Meds- None Allergies to Antibiotic- No Known Allergies Blood Thinner- None Post Void Residual: 0ml Gizzard Skin Remover Required: No Accompanied by: Self / Same As Patient Allergies No Known Allergies [No Known Allergies*] Allergy (Verified 06/25/23 11:34) Medication List - Last Reconciled 06/25/23 by Ruddy Mace MD acetaminophen (Tylenol) 650 mg PO Q4H PRN denosumab (Xgeva) 120 mg subcut Q4W ferrous gluconate 1 tab PO QAM patiromer calcium sorbitex (Veltassa) 8.4 grams PO ONCE HPI HPI Comments History of Present Illness Details Keshav is a pleasant male. He is a patient of Dr. Dickerson. He is seen for the following urologic condition - prostate cancer - urinary frequency and urgency Discussed lack of PSA response despite positive imaging back in January Plan repeat PSMA scan in 3 months Current lab work shows full blockade 05/27 P 0.2, T 3 - oncology denosumab 03/26 P 0.24 Had been on combination Xtandi with denosumab for metastatic disease 01/24 PSMA - T12 lesion positive - concer n regarding non hormone responsive metastatic disease Possible UTI - prescription provided Prostate cancer- EXBRT 2004, salvage cryotherapy 2009, targeted thoracic EXBRT 05/26 Thoracic MRI T12 lesion Lesion in spine seen on scan biopsy confirmed prostate cancer. Seen by Dr Dickerson radiation oncology. He has continued to have good biochemical response from GnRH. PSA remains low, testosterone remains blocks. 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 Would recommend anti androgen. Spot radiation. Assessment with oncology for chemotherapy. Intermittent Hormone therapy - Last GnRH 01/23 Initial therapy external beam radiotherapy 2004. Rising PSA - salvage cryotherapy 2009 2022 T12 lesion with external beam radia tion and hormone therapy Denosumab through oncology Subsequent intermittent hormone therapy PSA 01/21 <0.1, 04/22 <0.1, 10/22 PSA < 0.1, T 2, 01/22 PSA <0.1, T 1, 04/23 PSA <0.1 T12, 10/23 2.8 212, 01/23 10.2 288, 04/24 P 1.8 T 3, 07/24 1.3 T 3, 11/23 0.8 T 2 Urinary urgency and frequency Secondary to prostate cancer therapy Radiation cystitis Trial of Toviaz with terazosin Failed tibial stimulation Failed oxybutynin, vesicare, toviaz [facility] Medical History Stenosis of lumbosacral spine [place] Hypertension Hypercholesteremia Kidney disease Prostate cancer Macular degeneration Hematuria Urgency incontinence Prostate cancer Surgical History Spinal surgery in prior 3 months History of penile implant History of prostate surgery History of back surgery Family History Other No family history of coronary artery disease Social History Household Members: Spouse Housing: House Do you presently have visiting nurse or other home services: No Alcohol intake: former Patient Tobacco Use Status: Current someday Tobacco user Smoking Start Date: 06/18/61 Tobacco use type: Cigarette Cigarette Packs Per Day: 0.5 Years Smoked: 60 e-Cigarette/Vaping Use: Never Used Second Hand Smoke Exposure: No Advance Directives Date on File: 02/19/21 service: Yes Current occupational status: retired Review of Systems Const Denies chills and Denies fever(s) Card Reports no additional complaints and Denies syncope Resp Denies cough GI Denies abdominal pain and Denies heartburn Reports as per HPI and Denies change in libido Neuro Denies syncope Psych Denies change in libido Endo Denies change in libido Physical Exam Const General: cooperative, healthy appearing, comfortable and no acute distress Orientation/consciousness: patient oriented x3 HEENT Face and sinus: Yes normal facial exam Mouth: moist mucous membranes Neck Neck: Yes normal visual inspection, Yes full ROM and Yes trachea midline Chest Chest palpation & inspection: normal inspection of the chest Resp Effort & Inspection: normal respiratory effort, able to speak in complete sentences and no respiratory distress GI Inspection: Yes normal to inspection Back/Spine/Pelvis Cervical Spine: normal cervical lordosis Thoracic/Lumbar Spine: thoracic and lumbar spine normal to inspection Skin General skin exam: no rashes or lesions noted Neuro General: patient oriented x3, gait normal, tone normal and moves all extremities Extrem General: Yes normal to inspection and Yes capillary refill normal Office Procedures Post Void Residual Post Residual Void Post Void Residual (PVR): 0 [id number] Void Residual by ultrasound Assessment & Plan Assessment & Plan (1) Prostate cancer metastatic to bone: Code(s): C61 - Malignant neoplasm of prostate; C79.51 - Secondary malignant neoplasm of bone Plan Three-month follow-up lab work and PET-CT scan Orders: Orders AMB Post Void Residual by ultrasound Today R33.9 - Retention of urine, unspecified Prostate Specific Antigen 3 Months C61 - Malignant neoplasm of prostate, C79.51 - Secondary malignant neoplasm of bone Creatinine 3 Months C61 - Malignant neoplasm of prostate, C79.51 - Secondary malignant neoplasm of bone Blood Urea Nitrogen 3 Months C61 - Malignant neoplasm of prostate, C79.51 - Secondary malignant neoplasm of bone PET CT fusion skull to thigh 3 Months C61 - Malignant neoplasm of prostate, C79.51 - Secondary malignant neoplasm of bone Patient Instructions: Imaging studies, laboratory and physical exam results were discussed and reviewed in detail. No major barriers to patient understanding were identified. An opportunity to ask questions regarding the treatment plan was provided. All questions were answered. The patient expressed understanding and agreement with the above treatment plan. The patient is aware they should contact our office by phone for worsening of their current condition or the appearance of new urologic symptoms. Compliance is encouraged with any medications and followup testing that is ordered. It is a privilege to participate in the urologic care of your patient. If you have any questions or concerns regarding treatment for the above conditions, or other urologic issues, please do not hesitate to contact me. The office telephone contact is [phone]. This note is constructed using voice recognition software. While every effort has been made to ensure accuracy user experience developer errors may have been included. Yours sincerely, Dr Ruddy Mace MD, SILAS [facility] - Urology Providers of Expert, Compassionate Care for the Genitourinary System Coding Level of Care Code Est Pt Level 4 (23494) Diagnoses Prostate cancer metastatic to bone C61; C79.51 CPT Codes Post Residual Void - PVR CPT Code: 25825-Ojoo Void Residual by ultrasound ([id number])
== END 2023-06-25 11:52 | disposition home or self-care (01) ==
PROVIDERS: PCP Internal Medicine Medical Oncology; Visit Provider Urology
DX: N39.0 Urinary tract infection, site not specified (principal); C61 Malignant neoplasm of prostate; C79.51 Secondary malignant neoplasm of bone
CPT/HCPCS: 99214

== ENCOUNTER → 2023-06-25 10:58 | Outpatient (BNVA) | payer MEDICARE, SELFPAY | PROVIDERS: PCP Internal Medicine Medical Oncology; Visit Provider Urology | DX: C61 Malignant neoplasm of prostate (principal); C79.51 Secondary malignant neoplasm of bone | CPT/HCPCS: 51798; 99212 ==

== ENCOUNTER 2023-07-07 10:09 | Outpatient (REF) | payer MEDICARE, SELFPAY ==
--- NOTE | ~2023-07-07 | US_ITS ---
EXAMINATION: Noninvasive assessment of the bilateral lower extremities with ARTERIAL DUPLEX and ANKLE BRACHIAL INDICES (ABIs). CLINICAL INFORMATION: Peripheral vascular disease TECHNIQUE: Duplex Doppler techniques with waveform analysis and measurement of velocities in the bilateral common femoral, profunda femoris, superficial femoral, popliteal and tibial arteries were performed. Additionally, ankle pulse volume recordings, ankle pressure measurements and ankle brachial indices were obtained of the lower extremity arterial system bilaterally. The study was performed only at rest. COMPARISON: 06/03/2022 and 01/27/2022 FINDINGS: DIRECT DUPLEX DOPPLER FINDINGS: RIGHT LEG: Common femoral artery: 92.0 cm/s, phasicity: Biphasic Profunda femoris artery: 69.3 cm/s, phasicity: Biphasic Superficial femoral artery (proximal): 107 cm/s, phasicity: Triphasic Superficial femoral artery (mid): 131 cm/s, phasicity: Triphasic. Mild scattered plaque Superficial femoral artery (distal): 129 cm/s, phasicity: Triphasic Popliteal artery: 56.1 cm/s, phasicity: Triphasic Posterior tibial artery: 110 cm/s, phasicity: Triphasic Peroneal artery: 79.0 cm/s, phasicity: Triphasic Anterior tibial artery: 118 cm/s, phasicity: Triphasic Dorsalis pedis artery: 30 cm/s, phasicity:Biphasic LEFT LEG: Common femoral artery: 382 cm/s, previously 381, phasicity: Biphasic Profunda femoris artery: 47.2 cm/s, phasicity: Biphasic Superficial femoral artery (proximal): 88.3 cm/s, phasicity: Biphasic Superficial femoral artery (mid): 86.2 cm/s, phasicity: Biphasic Superficial femoral artery (distal): 54.5 cm/s, phasicity: Biphasic Popliteal artery: 83.0 cm/s, phasicity: Triphasic Posterior tibial artery: 61.9 cm/s, phasicity: Triphasic Peroneal artery: 50.3 cm/s, phasicity: Triphasic Anterior tibial artery: 61.5 cm/s, phasicity: Biphasic Dorsalis pedis artery: 27.7 cm/s, phasicity: Biphasic ANKLE-BRACHIAL INDEX: Right: 1.2?, previously 1.05 Left: 1.12, previously 0.93 ANKLE PRESSURES: Right: PT 141, DP 144 Left: PT?140, DP?134 ANKLE PVR WAVEFORMS: Right: Normal Left: Normal US/US abdominal aortic aneurysm IMPRESSION: Right leg: Normal ankle brachial index and PVR waveform. Patent arterial flow on duplex Doppler. Left leg: Normal ankle brachial index and PVR waveform. Patent arterial flow on duplex Doppler. Elevated velocity in the common femoral artery consistent with moderate stenosis. No significant change compared to the prior exam RAUL Reference: - >1.4 = calcified vessels - 0.9 - 1.4 = normal - no significant arterial disease - 0.7 - 0.89 = mild peripheral arterial disease - 0.51 - 0.69 = moderate peripheral arterial disease - ? 0.50 = severe peripheral arterial disease - < .30 = critical arterial disease ULTRASOUND AORTA Clinical indication: Atherosclerotic disease, stenosis Technique: Multiple avila-scale and color Doppler images of the abdominal aorta obtained. Comparison: None. FINDINGS: Diffuse atherosclerotic plaque is seen within the abdominal aorta and bilateral iliac arteries. The proximal segment of the abdominal aorta measures 2.3 x 2.2 cm. The mid abdominal aorta measures 1.7 x 1.5 cm. The distal abdominal aorta measures 1.9 x 2.1 cm in axial dimensions. The right common iliac artery measures 1.1 cm. The left common iliac artery measures 1.0 cm. Diffuse atherosclerotic wall calcification seen in the iliac arteries. Duplex Doppler velocity measurements and waveforms: Right common iliac artery: 125 cm/s, phasicity: Triphasic Right external iliac artery: 110 cm/s, phasicity: Triphasic Left common iliac artery: 67.1 cm, phasicity: Biphasic Left external iliac artery: 128 cm/s, phasicity: Triphasic Junction of the left common femoral artery and external iliac artery demonstrates noncalcified plaque with velocity measuring 316 cm/s, biphasic IMPRESSION: No evidence of abdominal aortic aneurysm. Diffuse atherosclerotic plaque. Focal moderate stenosis at the junction of the left external iliac artery and common femoral artery
== END 2023-07-07 10:10 | disposition home or self-care (01) ==
LOC: HO.US 10:09
PROVIDERS: PCP Internal Medicine Medical Oncology; Visit Provider Surgery Vascular Surgery
DX: I70.213 Atherosclerosis of native arteries of extremities with intermittent claudication, bilateral legs (principal)
CPT/HCPCS: 76706; 93923; 93925

== ENCOUNTER 2023-07-21 13:53 | Outpatient (AMB) | payer MEDICARE, SELFPAY ==
--- NOTE | 2023-07-21 14:18 | MHC.OFFVIS ---
Intake Intake Visit Reasons: 1 yr follow up Arterial US 07/07/2023 Intake Note: Patient presents for 1 year follow up s/p 07/07/23 arterial ultrasound. Patient states he has numbness and tingling in both legs and feet. Some pain, states it started after his back surgery in February of 2022. Accompanied by: Self / Same As Patient Allergies No Known Allergies [No Known Allergies*] Allergy (Verified 07/21/23 14:22) HPI 1 yr follow up Arterial US 07/07/2023 HPI Details Very pleasant 73-year-old gentleman presents for routine arterial surveillance follow-up. Reports that he has continued back issues. He has had prior back surgery and even has difficulty standing upright. He otherwise reports once he is walking he can walk several blocks with no issues. Now presents for routine surveillance follow-up. [facility] Medical History Stenosis of lumbosacral spine [place] Hypertension Hypercholesteremia Kidney disease Prostate cancer Macular degeneration Hematuria Urgency incontinence Prostate cancer Surgical History Spinal surgery in prior 3 months History of penile implant History of prostate surgery History of back surgery Family History Other No family history of coronary artery disease Social History Household Members: Spouse Housing: House Do you presently have visiting nurse or other home services: No Alcohol intake: former Patient Tobacco Use Status: Current someday Tobacco user Smoking Start Date: 06/18/61 Tobacco use type: Cigarette Cigarette Packs Per Day: 0.5 Years Smoked: 60 e-Cigarette/Vaping Use: Never Used Second Hand Smoke Exposure: No Advance Directives Date on File: 02/19/21 service: Yes Current occupational status: retired Review of Systems Const All systems reviewed & are unremarkable except as noted in HPI and below Reports no additional complaints ENT Reports Normal hearing present Card Denies chest pain, Denies chest pain at rest, Denies chest pain with activity and Denies pedal edema Resp Denies cough GI Denies abdominal pain Musc Denies abnormal gait, Denies muscle cramps and Denies radiating pain into limb Skin/Breast Denies skin ulcer and Denies wounds Neuro Reports Normal hearing present and Denies abnormal gait Psych Reports no additional complaints Physical Exam Const General: cooperative, healthy appearing and comfortable Orientation/consciousness: oriented to person, oriented to place and oriented to time HEENT Head: Yes normal to inspection Neck Neck: Yes normal visual inspection Carotids: no bruits Chest Chest palpation & inspection: normal inspection of the chest Resp Effort & Inspection: normal respiratory effort and able to speak in complete sentences Auscultation: clear to auscultation bilaterally, no crackles, no rales, no rhonchi and no wheezes Cardio Other: Palpable DP bilaterally Rate: regular rate Rhythm: regular rhythm Heart sounds: S1 normal heart sound present and S2 normal heart sound present Bruits: no carotid bruits Peripheral pulses: Peripheral pulses 2+ throughout GI Inspection: Yes normal to inspection Skin Wounds: no wounds Hair: normal Neuro General: oriented to person, oriented to place and oriented to time Cranial nerves: Yes CN's II-XII intact bilaterally and Yes Normal hearing present Cognition (Neuro): normal cognition Motor exam (neuro): 5/5 motor strength present throughout Extrem Other: venous exam: No significant superficial varicosities or spider telangiectasias, minimal edema General: No clubbing, No cyanosis and No edema Psych Appearance: grossly normal Mental Status: mental status grossly normal Speech and movement: Normal speech and movement present Results Reviewed Results Reviewed: Noninvasive arterial testing dated 07/07/2023 demonstrates RAUL on the right of 1.2 and on the left of 1.12. Written report and images were reviewed Assessment & Plan Assessment & Plan (1) PAD (peripheral artery disease): Code(s): I73.9 - Peripheral vascular disease, unspecified Plan: In short patient has stable claudication. I did review the pathophysiology of peripheral vascular disease with the patient. In addition we did discuss routine conservative measures including a healthy diet and the importance of exercise and ambulation. We did discuss risk factor modification. The patient will continue to to follow-up with surveillance follow-up in approximately 1 year. Thank you for allowing us to participate in this patient's care. If there are any questions or concerns please do not hesitate to contact us. Orders: Orders US arterial duplex LE BI 1 Year I73.9 - Peripheral vascular disease, unspecified Coding Level of Care Code Est Pt Level 4 (19073) Diagnoses PAD (peripheral artery disease) I73.9
== END 2023-07-21 14:49 | disposition home or self-care (01) ==
PROVIDERS: PCP Internal Medicine Medical Oncology; Visit Provider Surgery Vascular Surgery
DX: I73.9 Peripheral vascular disease, unspecified (principal)
CPT/HCPCS: 99214

== ENCOUNTER → 2023-07-21 13:53 | Outpatient (BNVA) | payer MEDICARE, SELFPAY | PROVIDERS: PCP Internal Medicine Medical Oncology; Visit Provider Surgery Vascular Surgery | DX: I73.9 Peripheral vascular disease, unspecified (principal) | CPT/HCPCS: 99212 ==

== ENCOUNTER 2023-09-08 11:19 | Outpatient (AMB) | payer MEDICARE, SELFPAY ==
[2023-09-08 11:20] VITALS: BP 124/62; PULSE 102; O2SAT 98; BMI 20.9
--- NOTE | 2023-09-08 11:20 | HO.NEPHOV ---
Vital Signs 09/08/23 11:20 Height 6 ft 2 in Weight 163 lb BMI 20.9 BP 124/62 Blood Pressure Location Rt brachial Position Sitting Pulse 102 H Pulse Source Pulse Oximeter Pulse Oximetry (%) 98 Oxygen Delivery Method Room Air Intake Visit Reasons: May follow up/ LVM [employer] Consultant Required: No Accompanied by: Self / Same As Patient Allergies No Known Allergies [No Known Allergies*] Allergy (Verified 09/08/23 11:23) HPI Comments Details: Keshav is a elderly man with a history of prostate cancer status post radiation. He is here for follow-up. He has stage III CKD. Continues to smoke about half a pack a day. He continues have back pain and leg pain. Was seen by Dr. Rendon an RAUL was normal. He continues have increased urinary frequency. He is being actively followed by Urology. 09/08/23: Cr and K are up Increased frequency c/o Back pain PFSH Medical History Stenosis of lumbosacral spine [place] Hypertension Hypercholesteremia Kidney disease Prostate cancer Macular degeneration Hematuria Urgency incontinence Prostate cancer Surgical History Spinal surgery in prior 3 months History of penile implant History of prostate surgery History of back surgery Family History Other No family history of coronary artery disease Social History Household Members: Spouse Housing: House Do you presently have visiting nurse or other home services: No Alcohol intake: former Patient Tobacco Use Status: Current someday Tobacco user Smoking Start Date: 06/18/61 Tobacco use type: Cigarette Cigarette Packs Per Day: 0.5 Years Smoked: 60 e-Cigarette/Vaping Use: Never Used Second Hand Smoke Exposure: No Advance Directives Date on File: 02/19/21 service: Yes Current occupational status: retired Physical Exam Vital Signs: Last Vital Signs Pulse 102 H 09/08/23 11:20 BP 124/62 09/08/23 11:20 Pulse Ox 98 09/08/23 11:20 Oxygen Delivery Method Room Air 09/08/23 11:20 BMI result Body Mass Index 20.9 Const General: comfortable Nutritional Appearance: well nourished Orientation/consciousness: patient oriented x3 HEENT Head: No normal to inspection Mouth: moist mucous membranes Neck Neck: Yes supple and Yes no JVD Resp Auscultation: clear to auscultation bilaterally, no rales and rub present Cardio Jugular venous distension: no JVD Palpation: no palpable S3 and no palpable S4 Heart sounds: no rubs GI Palpation (GI): Soft to palpation and nontender Percussion: No Fluid wave present General: Yes no CVA tenderness Back/Spine/Pelvis Back: no CVA tenderness Skin General skin exam: no rashes or lesions noted Neuro General: patient oriented x3 Extrem General: Yes no pedal edema and No clubbing Results Reviewed Nephrology Results: Hgb 10.4 g/dl (14.0-18.0) L 09/03/23 WBC 5.9 X10*3/uL (4.8-10.8) 09/03/23 Plt Count 227 X10*3/uL (160-400) 09/03/23 Sodium 142 mmol/L (135-145) 09/03/23 Potassium 5.3 mmol/L (3.3-5.1) H 09/03/23 Chloride 108 mmol/L (96-108) 09/03/23 Carbon Dioxide 25 mmol/L (22-29) 09/03/23 BUN 26 mg/dL (9-16) H 09/03/23 Creatinine 1.83 mg/dL (0.5-1.4) H 09/03/23 Calcium 9.4 mg/dL (8.4-10.2) 09/03/23 Assessment & Plan Assessment & Plan (1) Malignant neoplasm prostate: Code(s): C61 - Malignant neoplasm of prostate Category: Medical (2) Anemia: Code(s): D64.9 - Anemia, unspecified Category: Medical (3) PAD (peripheral artery disease): Code(s): I73.9 - Peripheral vascular disease, unspecified Category: Medical (4) CKD (chronic kidney disease) stage 3, GFR 30-59 ml/min: Code(s): N18.30 - Chronic kidney disease, stage 3 unspecified Category: Medical (5) Hypertension: Code(s): I10 - Essential (primary) hypertension Category: Medical Plan Keshav has CKD 3. There has been an increase in serum creatinine up to 1.78 with mild hyperkalemia with a potassium of 5.3. I suspect he could have urinary retention which could explain both. He needs renal ultrasonogram. He was scheduled for postvoid ultrasound on August 20 but this has not been done yet. Has an appointment with Urology in the next 2 days Continue to avoid nephrotoxins including NSAIDs. Hypertension blood pressure controlled no changes are made to his medications Stand low-sodium diet. Anemia. Being followed by Dr. Nolan and gets vitamin B12 injections. Discussed smoking cessation Encouraged him to stay on a low-potassium Coding Level of Care Code Est Pt Level 4 (39003) Diagnoses Malignant neoplasm prostate C61 Anemia D64.9 PAD (peripheral artery disease) I73.9 CKD (chronic kidney disease) stage 3, GFR 30-59 ml/min N18.30 Hypertension I10
== END 2023-09-08 11:49 | disposition home or self-care (01) ==
PROVIDERS: PCP Internal Medicine Medical Oncology; Visit Provider Internal Medicine Hypertension Specialist
DX: C61 Malignant neoplasm of prostate (principal); D64.9 Anemia, unspecified; I73.9 Peripheral vascular disease, unspecified; N18.30 Chronic kidney disease, stage 3 unspecified; I10 Essential (primary) hypertension
CPT/HCPCS: 99214

== ENCOUNTER → 2023-09-08 11:19 | Outpatient (BNVA) | payer MEDICARE, SELFPAY | PROVIDERS: PCP Internal Medicine Medical Oncology; Visit Provider Internal Medicine Hypertension Specialist | DX: I12.9 Hypertensive chronic kidney disease with stage 1 through stage 4 chronic kidney disease, or unspecified chronic kidney disease (principal); N18.30 Chronic kidney disease, stage 3 unspecified; C61 Malignant neoplasm of prostate; D64.9 Anemia, unspecified; I73.9 Peripheral vascular disease, unspecified | CPT/HCPCS: 99212 ==

== ENCOUNTER 2023-09-15 13:28 | Outpatient (REF) | payer MEDICARE, SELFPAY ==
[2023-09-15 13:54] LABS: MANUAL DIFF FLAG NO
[2023-09-15 14:27] LABS: Basophils Percent Auto 0.7 % (0-2); Eosinophils Absolute Auto 0.4 X10*3/uL (0.0-0.4); Hematocrit 33.9 % (42.0-52.0); Hemoglobin 10.9 g/dl (14.0-18.0); Imm Gran Abs Auto 0.05 X10*3/uL (0.00-0.03); Imm Gran Pct Auto 0.9 % (0.0-0.4); Lymphocytes Absolute Auto 0.9 X10*3/uL (1.2-4.9); Lymphocytes Percent Auto 14.6 % (20-40); Mean Corpuscular HGB Conc 32.2 g/dl (31.0-36.0); Mean Corpuscular Hemoglobin 29.4 pg (27.0-33.0); Mean Corpuscular Volume 91.4 fL (80.0-98.0); Mean Platelet Volume 10.3 fL (9.4-12.4); Monocytes Absolute Auto 0.4 X10*3/uL (0.1-1.2); Monocytes Percent Auto 6.7 % (2-11); Neutrophils Absolute Auto 4.2 x10*3/uL (2.0-8.3); Neutrophils Percent Auto 71.1 % (45-73); Platelet Count 241 X10*3/uL (160-400); Red Blood Count 3.71 X10*6/uL (4.60-5.80); Red Cell Distribution Width 13.5 % (11.0-16.0); White Blood Count 5.8 X10*3/uL (4.8-10.8)
[2023-09-15 14:59] LABS: Alanine Aminotransferase 9 U/L (0-40); Albumin Level 4.2 g/dL (3.5-5.0); Alkaline Phosphatase 70 U/L (39-117); Anion Gap 15 (12-20); Aspartate Amino Transferase 14 U/L (5-37); Bilirubin Total 0.1 mg/dL (0.0-1.0); Blood Urea Nitrogen 24 mg/dL (9-16); Calcium 9.4 mg/dL (8.4-10.2); Carbon Dioxide 23 mmol/L (22-29); Chloride 107 mmol/L (96-108); Estimated Glomerular Filt Rate 43; Glucose Random 110 mg/dL (60-115); Potassium 4.4 mmol/L (3.3-5.1); Sodium 141 mmol/L (135-145); Total Protein 7.1 g/dL (6.5-8.0)
[2023-09-15 15:14] LABS: Prostate Specific Antigen 0.17 ng/mL (<0.05-4.0); Vitamin B12 619 pg/mL (200-900)
[2023-09-19 14:03] LABS: Testosterone, Total 5 ng/dL (250-1100)
== END 2023-09-15 13:29 | disposition home or self-care (01) ==
LOC: HO.LAB 13:28
PROVIDERS: Absent Provider Internal Medicine Medical Oncology; PCP Internal Medicine Medical Oncology; Visit Provider Urology
DX: C79.51 Secondary malignant neoplasm of bone (principal); C61 Malignant neoplasm of prostate; Z12.5 Encounter for screening for malignant neoplasm of prostate
CPT/HCPCS: 36415; 80053; 82565; 82607; 84153; 84403; 84520; 85025

== ENCOUNTER 2023-09-23 10:48 | Outpatient (AMB) | payer MEDICARE, SELFPAY ==
--- NOTE | 2023-09-23 10:51 | A.OFFVIS_ITS ---
Intake Visit Reasons: 3m/labs(set) Intake Note: Patient is Present for Follow Up on labs results: Urology Medication: None Antibiotic Allergies: None Blood Thinners:None Loftsman/Woman Required: No Accompanied by: Self / Same As Patient Allergies No Known Allergies [No Known Allergies*] Allergy (Verified 09/23/23 10:52) Medication List - Last Reconciled 09/23/23 by Ruddy Mace MD acetaminophen (Tylenol) 650 mg PO Q4H PRN denosumab (Xgeva) 120 mg subcut Q4W ferrous gluconate 1 tab PO QAM vibegron (Gemtesa) 75 mg PO DAILY 30 days HPI Comments Details: Keshav is a pleasant male. He is a patient of Dr. Dickerson. He is seen for the following urologic condition - prostate cancer - urinary frequency and urgency Lab work low Planned PSMA scan upcoming Will trial gemtessa for urinary urgency and frequency 09/24 P 0.2 T 5 - oncology - denosumab 05/27 P 0.2, T 3 - oncology - denosumab 03/26 P 0.24 - Had been on combination Xtandi with denosumab for metastatic disease 01/24 PSMA - T12 lesion positive - concern regarding non hormone responsive metastatic disease Possible UTI - prescription provided Prostate cancer- EXBRT 2004, salvage cryotherapy 2009, targeted thoracic EXBRT 05/26 Thoracic MRI T12 lesion Lesion in spine seen on scan biopsy confirmed prostate cancer. Seen by Dr Dickerson radiation oncology. He has continued to have good biochemical response from GnRH. PSA remains low, testosterone remains blocks. 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 Would recommend anti androgen. Spot radiation. Assessment with oncology for chemotherapy. Intermittent Hormone therapy - Last GnRH 01/23 Initial therapy external beam radiotherapy 2004. Rising PSA - salvage cryotherapy 2009 2022 T12 lesion with external beam radiation and hormone therapy Denosumab through oncology Subsequent intermittent hormone therapy PSA 01/21 <0.1, 04/22 <0.1, 10/22 PSA < 0.1, T 2, 01/22 PSA <0.1, T 1, 04/23 PSA <0.1 T12, 10/23 2.8 212, 01/23 10.2 288, 04/24 P 1.8 T 3, 07/24 1.3 T 3, 11/23 0.8 T 2 Urinary urgency and frequency Secondary to prostate cancer therapy Radiation cystitis Trial of Toviaz with terazosin Failed tibial stimulation Failed oxybutynin, vesicare, toviaz [facility] Medical History Stenosis of lumbosacral spine [place] Hypertension Hypercholesteremia Kidney disease Prostate cancer Macular degeneration Hematuria Urgency incontinence Prostate cancer Surgical History Spinal surgery in prior 3 months History of penile implant History of prostate surgery History of back surgery Family History Other No family history of coronary artery disease Social History Household Members: Spouse Housing: House Do you presently have visiting nurse or other home services: No Alcohol intake: former Patient Tobacco Use Status: Current someday Tobacco user Smoking Start Date: 06/18/61 Tobacco use type: Cigarette Cigarette Packs Per Day: 0.5 Years Smoked: 60 e-Cigarette/Vaping Use: Never Used Second Hand Smoke Exposure: No Advance Directives Date on File: 02/19/21 service: Yes Current occupational status: retired Review of Systems Const All systems reviewed & are unremarkable except as noted in HPI and below Reports no additional complaints Resp Reports no additional complaints GI Reports no additional complaints Reports as per HPI Musc Reports no additional complaints Physical Exam Telemedicine evaluation Appropriate responses Regular breathing rate and rhythm HEENT Head: Yes normal to inspection Ears: hearing grossly normal bilaterally Eyes General: appearance normal, both eyes and all related structures Neck Neck: Yes normal visual inspection Chest Chest palpation & inspection: normal inspection of the chest Resp Effort & Inspection: normal respiratory effort and able to speak in complete sentences Telehealth Telehealth Telehealth Platform: [facility] Location of provider rendering services: practice address Location of patient: address on file Patient Identification confirmed using: Name, : Yes Telehealth method: video Patient verbally consented to treatment: Yes Patient verbally consented to billing insurance company: Yes Patient informed of any privacy concerns related to visit: Yes Minutes spent on Phone/Video with Pt.: 15 Assessment & Plan Assessment & Plan (1) Malignant neoplasm prostate: Code(s): C61 - Malignant neoplasm of prostate Category: Medical (2) Prostate cancer metastatic to bone: Code(s): C61 - Malignant neoplasm of prostate; C79.51 - Secondary malignant neoplasm of bone Category: Medical (3) Urgency of micturition: Code(s): R39.15 - Urgency of urination Category: Medical Plan Follow-up October for PSMA scan Medications: New vibegron (Gemtesa) 75 mg PO DAILY 30 days 30 tabs 0RF N39.41 - Urge incontinence Patient Instructions: Imaging studies, laboratory and physical exam results were discussed and reviewed in detail. No major barriers to patient understanding were identified. An opportunity to ask questions regarding the treatment plan was provided. All questions were answered. The patient expressed understanding and agreement with the above treatment plan. The patient is aware they should contact our office by phone for worsening of their current condition or the appearance of new urologic symptoms. Compliance is encouraged with any medications and followup testing that is ordered. It is a privilege to participate in the urologic care of your patient. If you have any questions or concerns regarding treatment for the above conditions, or other urologic issues, please do not hesitate to contact me. The office telephone contact is [phone]. This note is constructed using voice recognition software. While every effort has been made to ensure accuracy public safety dispatcher errors may have been included. Yours sincerely, Dr Ruddy Mace MD, [facility] - Urology Providers of Expert, Compassionate Care for the Genitourinary System Coding Level of Care Code Tele Est Pt Level 4 (51826) Diagnoses Malignant neoplasm prostate C61 Prostate cancer metastatic to bone C61; C79.51 Urgency of micturition R39.15
== END 2023-09-23 12:02 | disposition home or self-care (01) ==
LOC: HO.HUSH 10:48
PROVIDERS: PCP Internal Medicine Medical Oncology; Visit Provider Urology
DX: C61 Malignant neoplasm of prostate (principal); C79.51 Secondary malignant neoplasm of bone; R39.15 Urgency of urination
CPT/HCPCS: 99214

== ENCOUNTER → 2023-09-23 10:48 | Outpatient (BNVA) | payer MEDICARE, SELFPAY | PROVIDERS: PCP Internal Medicine Medical Oncology; Visit Provider Urology ==

== ENCOUNTER 2023-10-21 15:31 | Outpatient (AMB) | payer MEDICARE, SELFPAY ==
--- NOTE | 2023-10-21 15:31 | A.OFFVIS_ITS ---
Intake Visit Reasons: follow PET/CT(set) Intake Note: Patient is Present for Telephone Follow Up PET/CT Urology Med: Xgeva Antibiotic Allergy: None Blood Thinner: None Allergies No Known Allergies [No Known Allergies*] Allergy (Verified 10/21/23 15:32) Medication List - Last Reconciled 10/21/23 by Ruddy Mace MD acetaminophen (Tylenol) 650 mg PO Q4H PRN denosumab (Xgeva) 120 mg subcut Q4W ferrous gluconate 1 tab PO QAM HPI Comments Details: Keshav is a pleasant male. He is a patient of Dr. Dickerson. He is seen for the following urologic condition - prostate cancer - urinary frequency and urgency Lab work low Planned PSMA scan upcoming Will trial gemtessa for urinary urgency and frequency 10/25 PSMA appears to show partial resolution of T12 lesion following external beam radiation. Had not been on GnRH since PSA stays low. Has been on Xtandi. Will place on GnRH 09/24 P 0.2 T 5 - oncology - denosumab 05/27 P 0.2, T 3 - oncology - denosumab 03/26 P 0.24 - Had been on combination Xtandi with denosumab for metastatic disease 01/24 PSMA - T12 lesion positive - concern regarding non hormone responsive metastatic disease Possible UTI - prescription provided Prostate cancer- EXBRT 2004, salvage cryotherapy 2009, targeted thoracic EXBRT 05/26 Thoracic MRI T12 lesion Lesion in spine seen on scan biopsy confirmed prostate cancer. Seen by Dr Dickerson radiation oncology. He has continued to have good biochemical response from [facility]. PSA remains low, testosterone remains blocks. 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 Would recommend anti androgen. Spot radiation. Assessment with oncology for chemotherapy. Intermittent Hormone therapy - Last GnRH 01/23 Initial therapy external beam radiotherapy 2004. Rising PSA - salvage cryotherapy 2009 2022 T12 lesion with external beam radiation and hormone therapy Denosumab through oncology Subsequent intermittent hormone therapy PSA 01/21 <0.1, 04/22 <0.1, 10/22 PSA < 0.1, T 2, 01/22 PSA <0.1, T 1, 04/23 PSA <0.1 T12, 10/23 2.8 212, 01/23 10.2 288, 04/24 P 1.8 T 3, 07/24 1.3 T 3, 11/23 0.8 T 2 Urinary urgency and frequency Secondary to prostate cancer therapy Radiation cystitis Trial of Toviaz with terazosin Failed tibial stimulation Failed oxybutynin, vesicare, toviaz [facility] Medical History Stenosis of lumbosacral spine [place] Hypertension Hypercholesteremia Kidney disease Prostate cancer Macular degeneration Hematuria Urgency incontinence Prostate cancer Surgical History Spinal surgery in prior 3 months History of penile implant History of prostate surgery History of back surgery Family History Other No family history of coronary artery disease Social History Household Members: Spouse Housing: House Do you presently have visiting nurse or other home services: No Alcohol intake: former Patient Tobacco Use Status: Current someday Tobacco user Smoking Start Date: 06/18/61 Tobacco use type: Cigarette Cigarette Packs Per Day: 0.5 Years Smoked: 60 e-Cigarette/Vaping Use: Never Used Second Hand Smoke Exposure: No Advance Directives Date on File: 02/19/21 service: Yes Current occupational status: retired Review of Systems Const All systems reviewed & are unremarkable except as noted in HPI and below Reports no additional complaints Resp Reports no additional complaints GI Reports no additional complaints Reports as per HPI Musc Reports no additional complaints Physical Exam Telemedicine evaluation Appropriate responses Regular breathing rate and rhythm HEENT Head: Yes normal to inspection Ears: hearing grossly normal bilaterally Eyes General: appearance normal, both eyes and all related structures Neck Neck: Yes normal visual inspection Chest Chest palpation & inspection: normal inspection of the chest Resp Effort & Inspection: normal respiratory effort and able to speak in complete sentences Telehealth Telehealth Telehealth Platform: Monstrous Location of provider rendering services: practice address Location of patient: address on file Patient Identification confirmed using: Name, : Yes Telehealth method: video Patient verbally consented to treatment: Yes Patient verbally consented to billing insurance company: Yes Patient informed of any privacy concerns related to visit: Yes Minutes spent on Phone/Video with Pt.: 15 Assessment & Plan Assessment & Plan (1) Malignant neoplasm prostate: Code(s): C61 - Malignant neoplasm of prostate Category: Medical Plan [facility] 2 week, will then need 4 month follow-up lab work Medications: New mirabegron ER 50 mg PO DAILY 30 tabs 1RF 30 days N39.41 - Urge incontinence, R39.15 - Urgency of urination Patient Instructions: Imaging studies, laboratory and physical exam results were discussed and reviewed in detail. No major barriers to patient understanding were identified. An opportunity to ask questions regarding the treatment plan was provided. All questions were answered. The patient expressed understanding and agreement with the above treatment plan. The patient is aware they should contact our office by phone for worsening of their current condition or the appearance of new urologic symptoms. Compliance is encouraged with any medications and followup testing that is ordered. It is a privilege to participate in the urologic care of your patient. If you have any questions or concerns regarding treatment for the above conditions, or other urologic issues, please do not hesitate to contact me. The office telephone contact is [phone]. This note is constructed using voice recognition software. While every effort has been made to ensure accuracy job recruiter errors may have been included. Yours sincerely, Dr Ruddy Mace MD, [facility] - Urology Providers of Expert, Compassionate Care for the Genitourinary System Coding Level of Care Code Tele Est Pt Level 3 (13223) Diagnoses Malignant neoplasm prostate C61
== END 2023-10-21 16:16 | disposition home or self-care (01) ==
LOC: HO.HUSH 15:31
PROVIDERS: PCP Internal Medicine Medical Oncology; Visit Provider Urology
DX: C61 Malignant neoplasm of prostate (principal)
CPT/HCPCS: 99213

== ENCOUNTER → 2023-10-21 15:31 | Outpatient (BNVA) | payer MEDICARE, SELFPAY | PROVIDERS: PCP Internal Medicine Medical Oncology; Visit Provider Urology ==

== ENCOUNTER 2023-11-02 07:47 | Day surgery (SDC) | payer MEDICARE, SELFPAY ==
[2023-10-29 08:12] VITALS: BMI 24.2
--- NOTE | 2023-10-30 10:12 | HO.ANESPROP2 ---
Documented by User: Carmen Simms NP 10/30/23 10:20 HPI - Anesthesia Eval Consult details Narrative: 73yo M for Right Cataract Extraction IOL Insertion No previous cataract on record PMFSH Active Problems Active Problems: All Active Problems Complicated urinary tract infection (Acute) Malignant neoplasm prostate (Acute) Prostate cancer metastatic to bone (Acute) Rising PSA following treatment for malignant neoplasm of prostate (Acute) Anemia (Acute) Scrotal abscess (Acute) Abscess of scrotum (Acute) Physical deconditioning (Acute) Radiation cystitis (Acute) CKD (chronic kidney disease) stage 3, GFR 30-59 ml/min (Acute) Thrombocytopenia (Acute) Closed traumatic nondisplaced fracture of phalanx of toe (Acute) PAD (peripheral artery disease) (Acute) Urinary urgency (Acute) Nocturia more than twice per night (Acute) Prostate cancer (Acute) Urgency of micturition (Acute) Prostate cancer (Acute) Urgency incontinence (Acute) Hypertension (Acute) Past Medical History Medical History CHF (congestive heart failure) Overweight Renal cyst Tobacco dependence Urinary incontinence Iron deficiency anemia Hx of radiation therapy Stenosis of lumbosacral spine [place] Hypertension Hypercholesteremia Kidney disease Macular degeneration Hematuria Urgency incontinence Prostate cancer Family History Family History Other No family history of coronary artery disease Family history of problems with anesthesia: No Surgical History Surgical History History of incision and drainage Spinal surgery in prior 3 months History of prostate surgery History of back surgery History of Problems with Anesthesia: No Social History Social History Household Members: Spouse Housing: House Are you a primary primary care nurse practitioner to a significant other at home: No Do you presently have visiting nurse or other home services: No Alcohol intake: former Patient Tobacco Use Status: Current someday Tobacco user Smoking Start Date: 06/18/61 Tobacco use type: Cigarette Cigarette Packs Per Day: 0.5 Cigarettes Per Day: 5 Years Smoked: 60 e-Cigarette/Vaping Use: Never Used Second Hand Smoke Exposure: No Advance Directives: Yes Advance Directives Information Provided: Yes Advance Directives on File: No Advance Directives Date on File: 02/19/21 Recently lost weight without trying: No Eating poorly because of decreased appetite: No Nutrition Risks: No Nutritional Risk service: Yes Current occupational status: retired Meds Allergies Allergy/AdvReac Type Severity Reaction Status Date / Time No Known Allergies Allergy Verified 11/02/23 09:31 [No Known Allergies*] Home Medications ?Medication ?Instructions ?Recorded ?Confirmed ?Last Taken ?Type ferrous gluconate 324 mg (38 mg 1 tab PO QAM 03/04/22 10/29/23 Unknown History iron) tablet denosumab 120 mg/1.7 mL (70 mg/mL) 120 mg subcut Q4W 05/12/23 10/29/23 Unknown History subcutaneous solution (Xgeva) Exam Height,Weight and Vital Signs: Height 5 ft 9 in Weight 74.389 kg Assessment and Plan Assessment Anesthesia Assessment: Chart Reviewed Final Anesthetic Review Family History of Problems with Anesthesia: No History of Problems with Anesthesia: No Documented by User: Maria Guadalupe Hernandez MD 11/02/23 09:36 [facility] Past Medical History Medical History CHF (congestive heart failure) Overweight Renal cyst Tobacco dependence Urinary incontinence Iron deficiency anemia Hx of radiation therapy Stenosis of lumbosacral spine [place] Hypertension Hypercholesteremia Kidney disease Macular degeneration Hematuria Urgency incontinence Prostate cancer Family History Family History Other No family history of coronary artery disease Surgical History Surgical History History of incision and drainage Spinal surgery in prior 3 months History of prostate surgery History of back surgery Social History Social History Household Members: Spouse Housing: House Are you a primary primary care nurse practitioner to a significant other at home: No Do you presently have visiting nurse or other home services: No Alcohol intake: former Patient Tobacco Use Status: Current someday Tobacco user Smoking Start Date: 06/18/61 Tobacco use type: Cigarette Cigarette Packs Per Day: 0.5 Cigarettes Per Day: 5 Years Smoked: 60 e-Cigarette/Vaping Use: Never Used Second Hand Smoke Exposure: No Advance Directives: Yes Advance Directives Information Provided: Yes Advance Directives on File: No Advance Directives Date on File: 02/19/21 Recently lost weight without trying: No Eating poorly because of decreased appetite: No Nutrition Risks: No Nutritional Risk service: Yes Current occupational status: retired Meds Allergies Allergy/AdvReac Type Severity Reaction Status Date / Time No Known Allergies Allergy Verified 11/02/23 09:31 [No Known Allergies*] Home Medications ?Medication ?Instructions ?Recorded ?Confirmed ?Last Taken ?Type ferrous gluconate 324 mg (38 mg 1 tab PO QAM 03/04/22 10/29/23 Unknown History iron) tablet denosumab 120 mg/1.7 mL (70 mg/mL) 120 mg subcut Q4W 05/12/23 10/29/23 Unknown History subcutaneous solution (Xgeva) Exam Airway Mallampati Class: II TM Dist: >3cm Neck ROM: Limited Loose/Missing/Broken Teeth: Yes Heart: RRR Lungs: CTA Assessment and Plan Assessment Anesthesia Assessment: Anesthesia Plan Discussed Final Anesthetic Review NPO: Yes ASA Class: III Final Preanesthetic Review: Meds/Allgs Chart Reviewed, Consent Obtained/Reviewed and Anes Risks/Benef Reviewed Patient Risk: Intermediate Procedure Risk: Low Anesthetic Plan Anesthetic Plan: MAC: Disposition: Standard PACU
[2023-11-02 09:19] VITALS: BP 162/83; PULSE 91; RESP 18; TEMP 36.2; O2SAT 98
[2023-11-02] MEDS: Lactated Ringers 500 ML 50 ML IV (09:23)
[2023-11-02 10:02] LABS: Anion Gap 13 (12-20); Carbon Dioxide 26 mmol/L (22-29); Chloride 111 mmol/L (96-108); Potassium 5.7 mmol/L (3.3-5.1); Sodium 144 mmol/L (135-145)
--- NOTE | 2023-11-02 10:13 | MHC.SHP ---
Pre-Procedural Eval Section A - 24 Hr Update-Section A only Date of Service: 11/02/23 The patient is an INPATIENT: No Changes since office visit: No Cold of Flu in the past 2 weeks, No New Medical Problems, No Changes in Medication and No Patient answered all questions The patient has been examined within 24 hours of the surgical procedure. The History & Physical has been completed within 30 days and I have reviewed it.: Yes Section B - Complete if H&P > 30 days Chief Complaint: Age-related nuclear cataract, right eye Allergies: Allergies Allergy/AdvReac Type Severity Reaction Status Date / Time No Known Allergies Allergy Verified 11/02/23 09:31 [No Known Allergies*] Plan Diagnosis/Plan: Unchanged I have reviewed the history and physical and performed a pertinent physical examination on my patient. No changes have occurred unless specified. Time Spent With Patient Time: Total time managing care of this patient today ____ minutes.
--- NOTE | 2023-11-02 10:14 | P.PCNO_ITS ---
Ophthalmology Procedure Procedure Date of Service: 11/02/23 Ophthalmology Viscoelastic: Healon Duet Dual Pack Pro Ophthalmology Lenses: IOL Acrysof MP - [id number] (23) Procedure Notes: PREOPERATIVE DIAGNOSIS: Decreased visual acuity right eye secondary to cataract POSTOPERATIVE DIAGNOSIS: Same PROCEDURE: Right cataract extraction with intraocular lens insertion SURGEON: Anatoliy Sheriff M.D. ANESTHESIA: Topical/MAC ESTIMATED BLOOD LOSS: None COMPLICATIONS: None After obtaining informed consent, the patient was brought to the operating room suite and placed in the supine position. After adequate sedation per anesthesia, topical drops of Tetracaine were given to the right eye. The eye was then prepped and draped in the usual sterile fashion. The operating room microscope was then positioned over the operative eye and a lid speculum placed. A paracentesis was created. Viscoelastic was then instilled into the anterior chamber. A three plane incision was then created temporally, utilizing a 2.85 mm keratome. Capsulotomy forceps were then utilized to create a circular tear capsulotomy. Hydrodissection and hydrodelineation were carried out until adequate mobilization of the nucleus occurred. Phacoemulsification was then utilized to remove the dense central nucl eus followed by removal of the cortical material utilizing the automated aspiration irrigation unit. Viscoelastic was instilled into the posterior capsular bag followed by placement of a posterior chamber intraocular lens without difficulty. The residual Viscoelastic was then removed utilizing the automated IA machine. The wound was checked and found to be watertight. The patient tolerated the procedure well and the lid speculum was removed. Intracameral injection of Vigamox 0.1 mL followed by a subtenon injection of Kenalog-40 0.2 mL were administered. The patient will be seen in the a.m.
[2023-11-02 10:45] VITALS: BP 121/69; PULSE 88; RESP 16; TEMP 36.4; O2SAT 100
== END 2023-11-02 10:49 | disposition home or self-care (01) ==
PROVIDERS: Anesthesiology; PCP Internal Medicine Medical Oncology; Visit Provider Ophthalmology
PROC: (CPT 66985; principal; 2023-11-02 09:40)
DX: H25.11 Age-related nuclear cataract, right eye (principal); H52.4 Presbyopia; H35.3112 Nonexudative age-related macular degeneration, right eye, intermediate dry stage; H18.413 Arcus senilis, bilateral; H11.153 Pinguecula, bilateral; H35.3223 Exudative age-related macular degeneration, left eye, with inactive scar; N18.30 Chronic kidney disease, stage 3 unspecified; I12.9 Hypertensive chronic kidney disease with stage 1 through stage 4 chronic kidney disease, or unspecified chronic kidney disease; E78.00 Pure hypercholesterolemia, unspecified; C61 Malignant neoplasm of prostate; Z92.3 Personal history of irradiation; I77.9 Disorder of arteries and arterioles, unspecified; D51.0 Vitamin B12 deficiency anemia due to intrinsic factor deficiency; Z79.83 Long term (current) use of bisphosphonates; Z79.899 Other long term (current) drug therapy; F17.210 Nicotine dependence, cigarettes, uncomplicated
CPT/HCPCS: 66984; 36415; 80051; J2250; J3301; V2630

== ENCOUNTER → 2023-11-04 10:04 | Day surgery (SDC) | payer MEDICARE, SELFPAY ==
[2023-11-03 17:29] VITALS: BMI 21.6
[2023-11-03 17:31] VITALS: BP 110/70; PULSE 110; RESP 16; TEMP 37; O2SAT 96
[2023-11-03] MEDS: Tetracaine HCl/PF 0.5% Oph Sol 4 ML DROPS 1 DROP EYE-RIGHT (17:39)
[2023-11-03] MEDS: Cyclopentolate 1 % Ophth Sol 2 ML DRPBTL 1 DROP EYE-RIGHT ×3 (17:40→17:56)
--- NOTE | 2023-11-03 17:41 | MHC.SHP ---
Pre-Procedural Eval Section A - 24 Hr Update-Section A only Date of Service: 11/03/23 The patient is an INPATIENT: No Changes since office visit: No Cold of Flu in the past 2 weeks, No New Medical Problems, No Changes in Medication and No Patient answered all questions The patient has been examined within 24 hours of the surgical procedure. The History & Physical has been completed within 30 days and I have reviewed it.: Yes Section B - Complete if H&P > 30 days Chief Complaint: Other mechanical complication of intraocular lens, Allergies: Allergies Allergy/AdvReac Type Severity Reaction Status Date / Time No Known Allergies Allergy Verified 11/02/23 09:31 [No Known Allergies*] Plan Diagnosis/Plan: Unchanged I have reviewed the history and physical and performed a pertinent physical examination on my patient. No changes have occurred unless specified. Time Spent With Patient Time: Total time managing care of this patient today ____ minutes.
[2023-11-03] MEDS: Tropicamide 1 % Ophth Sol 3 ML BTL 1 DROP EYE-RIGHT ×3 (17:42→17:58)
[2023-11-03] MEDS: Ketorolac Tromethamine 0.5% Op 10 ML DROPS 1 DROP EYE-RIGHT ×3 (17:44→18:00)
[2023-11-03] MEDS: Phenylephrine HCL 2.5% Oph SoL 2 ML BOTTLE 1 DROP EYE-RIGHT ×3 (17:46→18:02)
--- NOTE | 2023-11-03 18:12 | PC.NURSE ---
Report given to Caroline Kim (EXPLOITATION ANALYST).
[2023-11-03 18:34] LABS: Potassium 5.3 mmol/L (3.3-5.1)
--- NOTE | 2023-11-03 20:01 | HO.ANESPROP2 ---
HPI - Anesthesia Eval Consult details Narrative: RIGHT EYE LENS MALPOSITION PMFSH Active Problems Active Problems: All Active Problems Complicated urinary tract infection (Acute) Malignant neoplasm prostate (Acute) Prostate cancer metastatic to bone (Acute) Rising PSA following treatment for malignant neoplasm of prostate (Acute) Anemia (Acute) Scrotal abscess (Acute) Abscess of scrotum (Acute) Physical deconditioning (Acute) Radiation cystitis (Acute) CKD (chronic kidney disease) stage 3, GFR 30-59 ml/min (Acute) Thrombocytopenia (Acute) Closed traumatic nondisplaced fracture of phalanx of toe (Acute) PAD (peripheral artery disease) (Acute) Urinary urgency (Acute) Nocturia more than twice per night (Acute) Prostate cancer (Acute) Urgency of micturition (Acute) Prostate cancer (Acute) Urgency incontinence (Acute) Hypertension (Acute) Past Medical History Medical History CHF (congestive heart failure) Overweight Renal cyst Tobacco dependence Urinary incontinence Iron deficiency anemia Hx of radiation therapy Stenosis of lumbosacral spine [place] Hypertension Hypercholesteremia Kidney disease Macular degeneration Hematuria Urgency incontinence Prostate cancer Family History Family History Other No family history of coronary artery disease Family history of problems with anesthesia: No Surgical History Surgical History History of incision and drainage Spinal surgery in prior 3 months History of prostate surgery History of back surgery History of Problems with Anesthesia: No Social History Social History Household Members: Spouse Housing: House Are you a primary career development coordinator to a significant other at home: No Do you presently have visiting nurse or other home services: No Alcohol intake: former Patient Tobacco Use Status: Current someday Tobacco user Smoking Start Date: 06/18/61 Tobacco use type: Cigarette Cigarette Packs Per Day: 0.5 Cigarettes Per Day: 2 Years Smoked: 50 e-Cigarette/Vaping Use: Never Used Second Hand Smoke Exposure: No Use of substances other than those prescribed or required for medical reasons: No Are you DNR?: No Advance Directives: No Advance Directives Information Provided: No Advance Directives Date on File: 02/19/21 service: Yes Current occupational status: retired Meds Allergies Allergy/AdvReac Type Severity Reaction Status Date / Time No Known Allergies Allergy Verified 11/03/23 17:52 [No Known Allergies*] Active Medications: Current Medications Povidone Iodine (Povidone Iodine 5 % Ophth Soln 30 Ml Bottle) 1 appl EYE-RIGHT PREOP PRN PRN Reason: Pre-Op Surgical Implant Prophy Home Medications ?Medication ?Instructions ?Recorded ?Confirmed ?Last Taken ?Type ferrous gluconate 324 mg (38 mg 1 tab PO QAM 03/04/22 11/03/23 Unknown History iron) tablet denosumab 120 mg/1.7 mL (70 mg/mL) 120 mg subcut Q4W 05/12/23 11/03/23 Unknown History subcutaneous solution (Xgeva) Exam Height,Weight and Vital Signs: Height 6 ft 1 in Weight 74.389 kg Last Vital Signs Temp 98.6 F 11/03/23 17:31 Pulse 110 H 11/03/23 17:31 Resp 16 11/03/23 17:31 BP 110/70 11/03/23 17:31 Pulse Ox 96 11/03/23 17:31 O2 Del Method Room Air 11/03/23 17:31 Pertinent Lab Results Pertinent Lab Results: Laboratory Tests 11/03/23 18:19 Potassium 5.3 H Airway Mallampati Class: II TM Dist: >3cm Neck ROM: Full Loose/Missing/Broken Teeth: No Heart: RRR Lungs: CTA Assessment and Plan Assessment Anesthesia Assessment: Anesthesia Plan Discussed and Chart Reviewed Final Anesthetic Review Family History of Problems with Anesthesia: No History of Problems with Anesthesia: No NPO: Yes ASA Class: III Final Preanesthetic Review: No Changes in Pt Med Stat, Meds/Allgs Chart Reviewed, Consent Obtained/Reviewed and Anes Risks/Benef Reviewed Patient Risk: Intermediate Procedure Risk: Low Anesthetic Plan Anesthetic Plan: MAC: Disposition: Standard PACU
[2023-11-03 21:13] VITALS: BP 167/76; PULSE 87; RESP 15; TEMP 36.4; O2SAT 97
[2023-11-03 21:28] VITALS: BP 147/72; PULSE 93; RESP 18; TEMP 36.8; O2SAT 100
--- NOTE | 2023-11-04 10:13 | OP_ITS ---
DATE OF SERVICE: 11/03/2023 SURGEON: Anatoliy Sheriff MD PREOPERATIVE DIAGNOSIS: POSTOPERATIVE DIAGNOSIS: Dislocated intraocular lens, right eye. PROCEDURE PERFORMED: ESTIMATED BLOOD LOSS: COMPLICATIONS: ANESTHESIA: MAC with local. ASSISTANTS: SPECIMENS: INDICATION FOR SURGERY: Dislocated intraocular lens, right eye. DESCRIPTION OF PROCEDURE: After obtaining informed consent, the patient was brought to the operating room suite and placed in supine position. The right eye was prepped and draped in usual sterile fashion. Attention was directed to the right eye where the operating room microscope was positioned above the eye. 0.5 cc of MPF lidocaine was instilled into the anterior chamber followed by instillation viscoelastic to the capsular bag. A lens chopper was utilized to dial the intraocular lens back into the intraocular bag. Automated aspiration and irrigation was utilized to remove the viscoelastic. Vigamox 0.1 cc intracameral injection was given. The lid speculum was removed. The patient tolerated the procedure and will be seen in followup. MD EDWINA Hardwick/MODL / [id number]
== END | disposition home or self-care (01) ==
LOC: HO.SSS 10:05
PROVIDERS: Anesthesiology; PCP Internal Medicine Medical Oncology; Visit Provider Ophthalmology
PROC: (CPT 66825; principal; 2023-11-03 18:00)
DX: T85.22XA Displacement of intraocular lens, initial encounter (principal); Y83.8 Other surgical procedures as the cause of abnormal reaction of the patient, or of later complication, without mention of misadventure at the time of the procedure; Y92.9 Unspecified place or not applicable
CPT/HCPCS: 66825; 36415; 84132; J2250; J3301

== ENCOUNTER 2023-11-06 13:25 | Outpatient (AMB) | payer MEDICARE, SELFPAY ==
--- NOTE | 2023-11-06 13:57 | AM.OFFVISNUR ---
Intake Visit Reasons: [facility] Allergies No Known Allergies [No Known Allergies*] Allergy (Verified 11/03/23 17:52) Office Meds Eligard (6 month) 45 mg (6 month) subcutaneous syringe Performing Provider: Ruddy Mace MD [place] [facility] [place] [facility] [facility] Administered by: Hector Ratliff LPN on 11/06/23 13:57 Dose Route Admin Location Dispensed Lot Number Expiration Date [facility] Automation Control Technician 45 mg subcut left arm 45 mg [id number] 01/02/25 80351-364-53 Cardio control. Assessment & Plan Assessment & Plan Orders: Orders AMB Leuprolide Injection - Practice Supplied Today C61 - Malignant neoplasm of prostate, C79.51 - Secondary malignant neoplasm of bone, R97.21 - Rising PSA following treatment for malignant neoplasm of prostate Medications: New Eligard (6 month) (leuprolide acetate (6 month)) 45 mg subcut ONCE 1 ea 0RF NS C61 - Malignant neoplasm of prostate, C79.51 - Secondary malignant neoplasm of bone, R97.21 - Rising PSA following treatment for malignant neoplasm of prostate
== END 2023-11-06 14:08 | disposition home or self-care (01) ==
PROVIDERS: PCP Internal Medicine Medical Oncology; Visit Provider Urology
DX: C61 Malignant neoplasm of prostate (principal); C79.51 Secondary malignant neoplasm of bone; R97.21 Rising PSA following treatment for malignant neoplasm of prostate

== ENCOUNTER → 2023-11-06 13:25 | Outpatient (BNVA) | payer MEDICARE, SELFPAY | PROVIDERS: PCP Internal Medicine Medical Oncology; Visit Provider Urology | DX: C61 Malignant neoplasm of prostate (principal); C79.51 Secondary malignant neoplasm of bone; R97.21 Rising PSA following treatment for malignant neoplasm of prostate | CPT/HCPCS: 96402; J9217 ==

== ENCOUNTER 2023-12-07 07:52 | Outpatient (REF) | payer MEDICARE, SELFPAY ==
[2023-12-07 08:12] LABS: MANUAL DIFF FLAG NO
[2023-12-07 08:53] LABS: Basophils Percent Auto 0.6 % (0-2); Eosinophils Absolute Auto 0.3 X10*3/uL (0.0-0.4); Eosinophils Percent Auto 3.6 % (0-4); Hematocrit 30.5 % (42.0-52.0); Hemoglobin 9.2 g/dl (14.0-18.0); Imm Gran Abs Auto 0.06 X10*3/uL (0.00-0.03); Imm Gran Pct Auto 0.9 % (0.0-0.4); Lymphocytes Absolute Auto 0.8 X10*3/uL (1.2-4.9); Lymphocytes Percent Auto 11.9 % (20-40); Mean Corpuscular HGB Conc 30.2 g/dl (31.0-36.0); Mean Corpuscular Hemoglobin 28.5 pg (27.0-33.0); Mean Corpuscular Volume 94.4 fL (80.0-98.0); Mean Platelet Volume 9.2 fL (9.4-12.4); Monocytes Absolute Auto 0.8 X10*3/uL (0.1-1.2); Monocytes Percent Auto 10.8 % (2-11); Neutrophils Percent Auto 72.2 % (45-73); Platelet Count 324 X10*3/uL (160-400); Red Blood Count 3.23 X10*6/uL (4.60-5.80); Red Cell Distribution Width 14.1 % (11.0-16.0)
[2023-12-07 09:29] LABS: Alanine Aminotransferase 10 U/L (0-40); Albumin Level 3.8 g/dL (3.5-5.0); Alkaline Phosphatase 96 U/L (39-117); Anion Gap 11 (12-20); Aspartate Amino Transferase 11 U/L (5-37); Bilirubin Total 0.2 mg/dL (0.0-1.0); Blood Urea Nitrogen 29 mg/dL (9-16); Calcium 9.3 mg/dL (8.4-10.2); Carbon Dioxide 24 mmol/L (22-29); Chloride 111 mmol/L (96-108); Estimated Glomerular Filt Rate 36; Glucose Random 91 mg/dL (60-115); Potassium 5.1 mmol/L (3.3-5.1); Sodium 141 mmol/L (135-145); Total Protein 6.9 g/dL (6.5-8.0)
[2023-12-07 09:37] LABS: Prostate Specific Antigen 0.25 ng/mL (<0.05-4.0)
[2023-12-07 10:12] LABS: Ferritin 110 ng/mL (20-250)
== END 2023-12-07 07:53 | disposition home or self-care (01) ==
LOC: HO.LAB 07:52
PROVIDERS: PCP Internal Medicine Medical Oncology; Visit Provider Internal Medicine Medical Oncology
DX: E53.8 Deficiency of other specified B group vitamins (principal); E66.3 Overweight; C61 Malignant neoplasm of prostate; D50.9 Iron deficiency anemia, unspecified; Z12.5 Encounter for screening for malignant neoplasm of prostate
CPT/HCPCS: 36415; 80053; 82728; 84153; 85025

== ENCOUNTER 2024-01-18 09:46 | Outpatient (AMB) | payer MEDICARE, SELFPAY ==
[2024-01-18 09:47] VITALS: BP 134/68; PULSE 84; O2SAT 97; BMI 20.7
--- NOTE | 2024-01-18 09:47 | HO.NEPHOV_ITS ---
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 He is here for follow-up. He has stage III CKD. Continues to smoke about half a pack a day. He continues have back pain and leg pain. Was seen by Dr. Rendon an RAUL was normal. He continues have increased urinary frequency. He is being actively followed by Urology. 09/08/23: Cr and K are up; Increased frequency;c/o Back pain 01/18/2024. \Has metastatic prostate CA c/o Back pain WAiting for bone scan HAs incontinence s/p REcent UTI PFSH Medical History CHF (congestive heart failure) Overweight Renal cyst Tobacco dependence Urinary incontinence Iron deficiency anemia Hx of radiation therapy Stenosis of lumbosacral spine Falls Hypertension Hypercholesteremia Kidney disease Macular degeneration Hematuria Urgency incontinence Prostate cancer Surgical History History of incision and drainage Spinal surgery in prior 3 months History of prostate surgery History of back surgery Family History Other No family history of coronary artery disease Social History Household Members: Spouse Housing: House Are you a primary rn coronary care unit to a significant other at home: No Do you presently have visiting nurse or other home services: No Alcohol intake: former Patient Tobacco Use Status: Current someday Tobacco user Smoking Start Date: 06/18/61 Tobacco use type: Cigarette Cigarette Packs Per Day: 0.5 Cigarettes Per Day: 2 Years Smoked: 50 e-Cigarette/Vaping Use: Never Used Second Hand Smoke Exposure: No Advance Directives Date on File: 02/19/21 service: Yes Current occupational status: retired Physical Exam Vital Signs: Last Vital Signs Pulse 84 01/18/24 09:47 BP 134/68 01/18/24 09:47 Pulse Ox 97 01/18/24 09:47 Oxygen Delivery Method Room Air 01/18/24 09:47 BMI result Body Mass Index 20.7 Const General: comfortable; No acute distress Orientation/consciousness: patient oriented x3 Eyes General: appearance normal, both eyes and all related structures Visual Javier: normal visual javier by confrontation Neck Neck: Yes supple and Yes no JVD Resp Effort & Inspection: normal respiratory effort and respiratory effort not decreased Auscultation: rhonchi Cardio Palpation: no palpable S3 and no palpable S4 Heart sounds: no rubs GI Inspection: Yes normal to inspection Palpation (GI): Soft to palpation Percussion: Yes normal to percussion Auscultation: normal bowel sounds General: Yes no CVA tenderness Back/Spine/Pelvis Back: no CVA tenderness Skin General skin exam: no petechiae and no purpura Neuro General: patient oriented x3 and no focal motor deficits Extrem General: No clubbing and No edema Results Reviewed Nephrology Results: Hgb 9.2 g/dl (14.0-18.0) L 12/07/23 WBC 7.0 X10*3/uL (4.8-10.8) 12/07/23 Plt Count 324 X10*3/uL (160-400) 12/07/23 Sodium 142 mmol/L (135-145) 12/31/23 Potassium 5.1 mmol/L (3.3-5.1) 12/31/23 Chloride 107 mmol/L (96-108) 12/31/23 Carbon Dioxide 28 mmol/L (22-29) 12/31/23 BUN 32 mg/dL (9-16) H 12/31/23 Creatinine 1.95 mg/dL (0.5-1.4) H 12/31/23 Calcium 9.3 mg/dL (8.4-10.2) 12/31/23 Assessment & Plan Assessment & Plan (1) Malignant neoplasm prostate: Code(s): C61 - Malignant neoplasm of prostate Category: Medical (2) Anemia: Code(s): D64.9 - Anemia, unspecified Category: Medical (3) PAD (peripheral artery disease): Code(s): I73.9 - Peripheral vascular disease, unspecified Category: Medical (4) CKD (chronic kidney disease) stage 3, GFR 30-59 ml/min: Code(s): N18.30 - Chronic kidney disease, stage 3 unspecified Category: Medical (5) Hypertension: Comment: no meds currently Code(s): I10 - Essential (primary) hypertension Category: Medical Plan Keshav has CKD 3B. Creatinine is around 1.9 mg/dL which is close to the baseline. Watch for urinary retention. Continue follow up with Urology. Continue to avoid nephrotoxins including NSAIDs. History of metastatic prostate cancer status post chemo and radiation. Being actively followed by Urology Await Bone scan Hypertension : blood pressure controlled no changes are made to his medications Stay on low-sodium diet. Anemia. Being followed by Dr. Nolan and gets vitamin B12 injections. Discussed smoking cessation Encouraged him to stay on a low-potassium Recent potassium was accepted Orders: Orders Basic Metabolic Panel 4 Months N18.30 - Chronic kidney disease, stage 3 unspecified Complete Blood Count Auto Diff 4 Months N18.30 - Chronic kidney disease, stage 3 unspecified Coding Level of Care Code Est Pt Level 4 (37838) Diagnoses Malignant neoplasm prostate C61 Anemia D64.9 PAD (peripheral artery disease) I73.9 CKD (chronic kidney disease) stage 3, GFR 30-59 ml/min N18.30 Hypertension I10
== END 2024-01-18 10:08 | disposition home or self-care (01) ==
PROVIDERS: PCP Internal Medicine Medical Oncology; Visit Provider Internal Medicine Hypertension Specialist
DX: C61 Malignant neoplasm of prostate (principal); D64.9 Anemia, unspecified; I73.9 Peripheral vascular disease, unspecified; N18.30 Chronic kidney disease, stage 3 unspecified; I10 Essential (primary) hypertension
CPT/HCPCS: 99214

== ENCOUNTER → 2024-01-18 09:46 | Outpatient (BNVA) | payer MEDICARE, SELFPAY | PROVIDERS: PCP Internal Medicine Medical Oncology; Visit Provider Internal Medicine Hypertension Specialist | DX: I12.9 Hypertensive chronic kidney disease with stage 1 through stage 4 chronic kidney disease, or unspecified chronic kidney disease (principal); N18.30 Chronic kidney disease, stage 3 unspecified; D63.1 Anemia in chronic kidney disease; C61 Malignant neoplasm of prostate; I73.9 Peripheral vascular disease, unspecified | CPT/HCPCS: 99212 ==

== ENCOUNTER 2024-02-23 11:18 | Outpatient (AMB) | payer MEDICARE, SELFPAY ==
--- NOTE | 2024-02-23 11:25 | A.OFFVIS_ITS ---
Vital Signs 3 02/23/24 11:30 Height 6 ft 2 in Weight 165 lb BMI 21.2 BP 174/84 H Blood Pressure Location Rt brachial Position Sitting Pulse 101 H Pulse Source Pulse Oximeter Pulse Oximetry (%) 96 Oxygen Delivery Method Room Air Intake Visit Reasons: Back pain Intake Note: Pain today while standing 4/10, walking 8/10, sitting 0/10. 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 Russo 2021), chronic left shoulder, back and right leg pain, CKD stage 3, presents today for initial evaluation of chronic back pain. He was referred to our office by his Oncologist, Dr. [place]. Patient was diagnosed with bone metastases back (T12) in March 2023. Completed radiation therapy to the spine, 10 treatments 12 months ago. He developed a local recurrence within the prostate, status post cryoablation procedure in 2014 and has been on intermittent hormone therapy (ADT). He received Denosumab,# 14, for the bone mets on 02/04/24. He is scheduled for a bone scan tomorrow. Back pain is mostly localized to the right side of the lower spine and radiates across to his left side. Pain is most severe with standing or walking and no pain while sitting. Patient reports pain affects his ADLs, mobility, sleep, social interactions and quality of life. He denies any radiating pain today but reports occasional numbness in his lower extremities and was seen by Dr. Chawla for this. Denies pain around the T12 area. Patient has intermittent urinary incontinence and follows up with Dr. Mace for prostate c ancer and urinary frequency and urgency. Patient takes Tylenol and sparingly tramadol for pain and completed PT last year with minimal improvements. Denies any fever or chills, unintentional weight loss, abdominal or groin pain, weakness, bowel dysfunction or saddle anesthesia. Ambulates with antalgic gait, uses cane. 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 Reports history of exposure to [place]. Patient is . He has 1 child. Patient smokes 1/2 PPD or less (used to smoke 1 PPD). Quit alcohol 6 years ago. Oswestry low back disability score=20 (moderate disability) Location: Lower back on the right side radiating to left side Duration: Chronic pain for >2 years, progressively getting worse. Characteristics of symptom or complaint: Aching, stabbing, sharp, tiring, numbness, tingling, throbbing Aggravating or associated factors: Movements, standing, walking, weather changes Relieving factors: Sitting, laying down, Tylenol, tramadol Treatment: H/o back surgery 2021, PT in 2022 [facility] Medical History (Updated 02/24/24 @ 09:37 by JYOTI Olsen) CHF (congestive heart failure) Overweight Renal cyst Tobacco dependence Urinary incontinence Iron deficiency anemia Hx of radiation therapy Stenosis of lumbosacral spine [place] Hypertension Hypercholesteremia Kidney disease Macular degeneration Hematuria Urgency incontinence Prostate cancer Surgical History (Updated 02/24/24 @ 09:20 by JYOTI Olsen) History of incision and drainage Spinal surgery in prior 3 months History of prostate surgery History of back surgery Family History Other No family history of coronary artery disease Social History Household Members: Spouse Housing: House Are you a primary care associate to a significant other at home: No Do you presently have visiting nurse or other home services: No Alcohol intake: former Patient Tobacco Use Status: Current someday Tobacco user Smoking Start Date: 06/18/61 Tobacco use type: Cigarette Cigarette Packs Per Day: 0.5 Cigarettes Per Day: 2 Years Smoked: 50 e-Cigarette/Vaping Use: Never Used Second Hand Smoke Exposure: No Advance Directives Date on File: 02/19/21 service: Yes Current occupational status: retired Review of Systems Const All systems reviewed & are unremarkable except as noted in HPI and below Physical Exam Vital Signs: Last Vital Signs Pulse 101 H 02/23/24 11:30 BP 174/84 H 02/23/24 11:30 Pulse Ox 96 02/23/24 11:30 Oxygen Delivery Method Room Air 02/23/24 11:30 BMI result Body Mass Index 21.2 General: Appears afebrile. Alert and oriented. Mood and affect appropriate. Follows and participates in conversation appropriately. Respiratory effort is unlabored. No cough. Able to transition from sit to stand unassisted. Uses cane with ambulation. Ambulates with bilaterally normal heel strike and toe off, reports increase pain on the right. General: Yes no CVA tenderness Back/Spine/Pelvis Other: Limited thoracolumbar ROM due to pain. Lumbar extension and flexion reproduces moderate pain, worse with extension. Mild bony enlargement in T12 area, no tenderness on palpation. Demonstrates 5/5 strength of quadriceps bilaterally as well as flexion/dorsiflexion of bilateral feet against resistance. 2+ pedal pulses bilaterally. Seated straight leg rise with dorsiflexion is positive on the right in L5 distribution. Diminished patellar and achilles reflexes bilaterally. Facet loading test positive bilaterally. Michele sign positive bilaterally. Saul?s, Pelvic compression and Stinchfield tests are negative bilaterally. No groin pain with I/E hip rotations. Valsalva maneuver negative. Back: no CVA tenderness Cervical Spine: cervical ROM normal, No cervical muscular tenderness and No Cervical spine tenderness Thoracic/Lumbar Spine: Thoracic/lumbar spine scar(s), Lasegue's sign positive on the right and localized, pain with thoraco-lumbar ROM, paraspinal muscle tenderness on the right greater than left, thoraco-lumbar ROM limited, No thoracic spinal tenderness and lumbar spinal tenderness (L4-S1) Pelvis: no buttock tenderness Sacroiliac joints: bilaterally tender to palpation (mild) Results Reviewed Results Reviewed: MR LUMBAR SPINE WITHOUT AND WITH CONTRAST 05/09/22 CLINICAL INFORMATION: Low back pain. Follow-up bone scan. COMPARISON: Lumbar spine MRI 09/12/2021. Bone scan 04/14/2022. TECHNIQUE: MRI of the lumbar spine was obtained using routine sequences with and without contrast. Intravenous contrast: Magnevist 7.5 mL FINDINGS: Correlating with the recent bone scan, there is a enhancing lesion replacing the majority of the T12 vertebral body that is most compatible with an intraosseous metastatic focus given the patient's history of prostate cancer. No additional suspicious intraosseous lesions and no enhancing epidural lesions. There are post radiation fatty marrow signal changes within the sacrum and partially imaged pelvis. There are 5 nonrib-bearing lumbar-type vertebral bodies. There is grade 1 retrolisthesis of L1 on L2, L2 on L3, and L3 on L4. Multilevel endplate osteophytes. The vertebral body heights are maintained. There are Modic type II endplate signal changes at L2-L3 and L4-L5. There is no pathologic enhancement along the cauda equina nerve roots. There are bilateral renal cysts. There is left renal atrophy. Renal collecting systems are dilated bilaterally, greater on the left. L1-L2: Mild annular disc bulge and mild bilateral facet arthropathy. No central canal stenosis. Mild foraminal encroachment bilaterally. L2-L3: A left paracentral/left lateral disc osteophyte protrusion results in worsening compression of the traversing left L3 nerve root within the left subarticular zone and worsening moderate left-sided foraminal stenosis, contacting the extraforaminal left L2 nerve root. L3-L4 artifact from an interspinous surgical device. Right hemilaminectomy changes.: There is a diffuse annular disc bulge with a superimposed right paracentral/right lateral disc protrusion resulting in severe central canal stenosis and compression of traversing right greater than left nerve roots, similar to the preoperative lumbar spine MRI dated 09/12/2021. A right lateral disc protrusion at L3-L4 results in worsening moderate to severe right foraminal stenosis and compression of the exiting right L3 nerve root as well. There is enhancing granulation/scar tissue within the right epidural space. L4-L5: Diffuse disc osteophyte complex and moderate bilateral facet arthropathy and ligamentum flavum thickening. Findings in concert result in mild narrowing of the central canal as well as moderate bilateral foraminal stenosis with mild mass effect on the exiting nerve roots bilaterally. L5-S1: Annular disc bulge and moderate bilateral facet arthropathy. No central canal stenosis and no foraminal stenosis. IMPRESSION: - Correlating with the recent bone scan, there is a enhancing lesion replacing the majority of the T12 vertebral body that is most compatible with an intraosseous metastatic focus given the patient's history of prostate cancer. No additional suspicious intraosseous lesions and no enhancing epidural lesions. There are post radiation fatty marrow signal changes within the sacrum and partially imaged pelvis. - At L2-L3, a left paracentral/left lateral disc osteophyte protrusion results in worsening compression of the traversing left L3 nerve root within the left subarticular zone and worsening moderate left-sided foraminal stenosis, contacting the extraforaminal left L2 nerve root. - At L3-L4, there are interval postoperative changes following right hemilaminectomy and placement of an interspinous surgical device. There is a large residual versus recurrent right paracentral disc herniation resulting in persistent severe central canal stenosis and compression of the traversing right greater than left nerve roots, similar to the preoperative study. A right lateral disc protrusion at L3-L4 results in worsening moderate to severe right foraminal stenosis and compression of the exiting right L3 nerve root as well. There is enhancing granulation/scar tissue within the right epidural space. - At L4-L5, spondylitic changes result in mild central canal stenosis and moderate bilateral foraminal stenosis with mild mass effect on the exiting nerve roots bilaterally. - There are bilateral renal cysts. There is left renal atrophy. Renal collecting systems are dilated bilaterally, greater on the left. PET Scan 10/05/23 at [facility] Assessment & Plan Assessment & Plan (1) Prostate cancer metastatic to bone: Code(s): C61 - Malignant neoplasm of prostate; C79.51 - Secondary malignant neoplasm of bone Category: Medical (2) History of back surgery: Comment: 2021 Code(s): Z98.890 - Other specified postprocedural states Category: Surgical (3) Chronic pain syndrome: Code(s): G89.4 - Chronic pain syndrome Category: Medical (4) Lumbar spinal stenosis: Code(s): M48.061 - Spinal stenosis, lumbar region without neurogenic claudication Category: Medical (5) Lumbar degenerative disc disease: Code(s): M51.369 - Other intervertebral disc degeneration, lumbar region without mention of lumbar back pain or lower extremity pain Category: Medical (6) Chronic low back pain: Code(s): M54.50 - Low back pain, unspecified; G89.29 - Other chronic pain Category: Medical Plan Discussed interventional and medical treatments for chronic low back pain with spinal stenosis and metastatic prostate cancer to bones. Patient was diagnosed with bone metastases back (T12) in March 2023. He underwent radiation treatments and intermittent hormone therapy. He is due for bone scan tomorrow per Oncology. We discussed therapeutic injections, neuromodulation with SCS or ITDD trial and implants. Patient is really interested to undergo ITDD trial as initial steps for chronic and cancer pain. He reports previous cortisone injection prior to his back surgery in 2021 was minimally effective. We will proceed with urgent behavioral assessment if needed and ITDD trial to subsequently implant ITDD pain pump to provide this patient with superior analgesia with smaller doses of analgesics to minimize side effects and therefore improve his ADLs, sleep and quality of life. Schedule ITDD trial with Dilaudid with local and fluoroscopy. Expectations, risks and benefits were reviewed. Patient is aware he will be contacted to schedule this procedure. Hold tramadol 24 hours prior to procedure. All questions were answered and the patient is in agreement of plan. Follow-up after ITDD trial and sooner as needed. Coding Level of Care Code New Pt Level 4 (63641) Complex EM visit Add On G2211 Diagnoses Prostate cancer metastatic to bone C61; C79.51 History of back surgery Z98.890 Chronic pain syndrome G89.4 Lumbar spinal stenosis M48.061 Lumbar degenerative disc disease M51.369 Chronic low back pain M54.50; G89.29
[2024-02-23 11:30] VITALS: BP 174/84; PULSE 101; O2SAT 96; BMI 21.2
== END 2024-02-23 12:04 | disposition home or self-care (01) ==
PROVIDERS: PCP Internal Medicine Medical Oncology; Visit Provider Nurse Practitioner Family
DX: C61 Malignant neoplasm of prostate (principal); C79.51 Secondary malignant neoplasm of bone; Z98.890 Other specified postprocedural states; G89.4 Chronic pain syndrome; M48.061 Spinal stenosis, lumbar region without neurogenic claudication; M51.369 Other intervertebral disc degeneration, lumbar region without mention of lumbar back pain or lower extremity pain; M54.50 Low back pain, unspecified; G89.29 Other chronic pain
CPT/HCPCS: 99204; G2211

== ENCOUNTER → 2024-02-23 11:18 | Outpatient (BNVA) | payer MEDICARE, SELFPAY | PROVIDERS: PCP Internal Medicine Medical Oncology; Visit Provider Nurse Practitioner Family | DX: M54.50 Low back pain, unspecified (principal); G89.29 Other chronic pain; M48.061 Spinal stenosis, lumbar region without neurogenic claudication; M51.369 Other intervertebral disc degeneration, lumbar region without mention of lumbar back pain or lower extremity pain; C61 Malignant neoplasm of prostate; C79.51 Secondary malignant neoplasm of bone; Z92.3 Personal history of irradiation; Z57.4 Occupational exposure to toxic agents in agriculture; Z98.890 Other specified postprocedural states | CPT/HCPCS: 99202 ==

== ENCOUNTER → 2024-02-24 10:40 | Outpatient (REF) | payer MEDICARE, SELFPAY ==
--- NOTE | ~2024-02-24 | NM_ITS ---
EXAMINATION: NM BONE SCAN OF THE WHOLE BODY CLINICAL INFORMATION: A 73-year-old male with prostate cancer and bone max. Right lower back pain. COMPARISON: Most recent prior whole body bone scan done on 04/14/2022. TECHNIQUE: Multiple gamma scintillation camera images of the whole body were performed 3.25 hours following the intravenous administration of 22 mCi Tc-99m MDP. The radiotracer was injected through a right antecubital superficial vein without complications. FINDINGS: In the head, persistent focal asymmetric increased tracer activity seen projecting along the junction between the right nasal bone and adjacent part of the maxillary sinus, highly suspicious for evolving disease. Interval development of linear asymmetric intense increased tracer activity seen projecting in the region of the right-sided ramus of the mandible, also suspicious for progressive disease. In the thoracic cage and upper extremities, nonspecific periarticular increased tracer activity around both shoulder and sternoclavicular joints likely represent posttraumatic and/or arthritic changes, appear similar. In the spine, previously documented intense focal increased tracer activity centering over T12 vertebral body persist however, the intensity of tracer activity has decreased since 04/14/2022. Mild nonspecific increased tracer activity within the remainder of the lumbar spine, appear similar. In the pelvis, no definite increased tracer activity. Significant urinary contamination is noted. The patient apparently is incontinent. In the lower extremities, periarticular increased tracer activity at both knees and both feet likely represent nonspecific posttraumatic and/or arthritic changes, appear unchanged. No other definite bony abnormalities are noted. The urinary bladder and faint visualization of both kidneys are noted. NM/OR bone scan whole body IMPRESSION: Compared to most recent prior whole body bone scan dated 04/14/2022: 1. 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 2. Persistent stable asymmetric increased tracer activity projecting in the region of the right-sided face consistent with stable disease. 3. Intensity of tracer activity at T12 vertebral body has decreased, consistent with likely interval healing. 4. No other significant interval change. Electronically signed by: Dusty Thompson MD 03/16/2024 12:32 PM [facility]
== END ==
LOC: HO.NUCMED 10:40
PROVIDERS: PCP Internal Medicine Medical Oncology; Visit Provider Internal Medicine Medical Oncology
DX: C61 Malignant neoplasm of prostate (principal); C79.51 Secondary malignant neoplasm of bone
CPT/HCPCS: 78306; A9503

== ENCOUNTER 2024-03-22 07:55 | Outpatient (REF) | payer MEDICARE, SELFPAY ==
[2024-03-22 08:29] LABS: MANUAL DIFF FLAG NO
[2024-03-22 09:03] LABS: Basophils Absolute Auto 0.1 X10*3/uL (0.0-0.2); Basophils Percent Auto 0.7 % (0-2); Eosinophils Absolute Auto 0.4 X10*3/uL (0.0-0.4); Eosinophils Percent Auto 5.6 % (0-4); Hematocrit 32.6 % (42.0-52.0); Hemoglobin 9.8 g/dl (14.0-18.0); Imm Gran Abs Auto 0.03 X10*3/uL (0.00-0.03); Imm Gran Pct Auto 0.4 % (0.0-0.4); Lymphocytes Percent Auto 14.9 % (20-40); Mean Corpuscular HGB Conc 30.1 g/dl (31.0-36.0); Mean Corpuscular Hemoglobin 28.4 pg (27.0-33.0); Mean Corpuscular Volume 94.5 fL (80.0-98.0); Mean Platelet Volume 9.3 fL (9.4-12.4); Monocytes Absolute Auto 0.6 X10*3/uL (0.1-1.2); Monocytes Percent Auto 8.9 % (2-11); Neutrophils Absolute Auto 4.7 x10*3/uL (2.0-8.3); Neutrophils Percent Auto 69.5 % (45-73); Platelet Count 240 X10*3/uL (160-400); Red Blood Count 3.45 X10*6/uL (4.60-5.80); Red Cell Distribution Width 13.1 % (11.0-16.0); White Blood Count 6.8 X10*3/uL (4.8-10.8)
[2024-03-22 09:18] LABS: Alanine Aminotransferase 11 U/L (0-40); Albumin Level 3.9 g/dL (3.5-5.0); Alkaline Phosphatase 69 U/L (39-117); Anion Gap 10 (12-20); Aspartate Amino Transferase 19 U/L (5-37); Bilirubin Total 0.2 mg/dL (0.0-1.0); Blood Urea Nitrogen 36 mg/dL (9-16); Carbon Dioxide 28 mmol/L (22-29); Chloride 110 mmol/L (96-108); Estimated Glomerular Filt Rate 31; Glucose Random 98 mg/dL (60-115); Potassium 5.2 mmol/L (3.3-5.1); Sodium 143 mmol/L (135-145); Total Protein 6.7 g/dL (6.5-8.0)
[2024-03-22 09:36] LABS: Prostate Specific Antigen 0.13 ng/mL (<0.05-4.0); Vitamin B12 665 pg/mL (200-900)
[2024-03-22 09:38] LABS: Ferritin 15 ng/mL (20-250)
== END 2024-03-22 07:56 | disposition home or self-care (01) ==
LOC: HO.LAB 07:55
PROVIDERS: PCP Internal Medicine Medical Oncology; Visit Provider Internal Medicine Medical Oncology
DX: I10 Essential (primary) hypertension (principal); C61 Malignant neoplasm of prostate; D50.9 Iron deficiency anemia, unspecified; E53.8 Deficiency of other specified B group vitamins; Z12.5 Encounter for screening for malignant neoplasm of prostate
CPT/HCPCS: 36415; 80053; 82607; 82728; 84153; 85025

== ENCOUNTER 2024-04-16 09:13 | Outpatient (REF) | payer MEDICARE, SELFPAY ==
--- NOTE | ~2024-04-16 | XR_ITS ---
EXAMINATION: XR MANDIBLE CLINICAL INFORMATION: OSTEONECROSIS VS. METASTATIC PROSTATE COMPARISON: Bone scan 02/24/2024 TECHNIQUE: 4 views of the mandible were obtained. FINDINGS: No obvious bone lesion in the region of the right mandibular angle to correspond with the radiotracer uptake on the recent bone scan. XR/XR mandible min 4V IMPRESSION: No obvious bone lesion in the region of the right mandibular angle. Consider further evaluation with CT. Electronically signed by: Davion Upton MD 04/18/2024 11:29 AM [facility]
== END 2024-04-16 09:14 | disposition home or self-care (01) ==
LOC: HO.XRAY 09:13
PROVIDERS: PCP Internal Medicine Medical Oncology; Visit Provider Internal Medicine Medical Oncology
DX: R68.84 Jaw pain (principal); C61 Malignant neoplasm of prostate
CPT/HCPCS: 70110

== ENCOUNTER 2024-05-10 11:30 | Outpatient (AMB) | payer MEDICARE, SELFPAY ==
--- NOTE | 2024-05-10 11:36 | A.OFFVIS_ITS ---
Intake Visit Reasons: GnRH/PSA/Med Review(Myrbetriq)set Intake Note: Patient is present for GNRH/PSA/MED REVIEW(MYBETRIQ) Urology Medication:NONE Antibiotic Allergy:NONE Blood Thinner:NONE Cage Tender Required: No Allergies No Known Allergies [No Known Allergies*] Allergy (Verified 05/10/24 11:37) HPI Comments Details: Keshav is a pleasant male. He is a patient of Dr. Dickerson. 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 Had not been on GnRH since PSA stays low. Has been on Xtandi. - GnRH 10/25 09/24 P 0.2 T 5 - oncology - denosumab 05/27 P 0.2, T 3 - oncology - denosumab 03/26 P 0.24 - Had been on combination Xtandi with denosumab for metastatic disease 01/24 PSMA - T12 lesion positive - concern regarding non hormone responsive metastatic disease Possible UTI - prescription provided Prostate cancer- EXBRT 2004, salvage cryotherapy 2009, targeted thoracic EXBRT 05/26 Thoracic MRI T12 lesion Lesion in spine seen on scan biopsy confirmed prostate cancer. Seen by Dr Dickerson radiation oncology. He has continued to have good biochemical response from GnRH. PSA remains low, testosterone remains blocks. 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 Would recommend anti androgen. Spot radiation. Assessment with oncology for chemotherapy. Intermittent Hormone therapy - Last GnRH 01/23 Initial therapy external beam radiotherapy 2004. Rising PSA - salvage cryotherapy 2009 2022 T12 lesion with external beam radiation and hormone therapy Denosumab through oncology Subsequent intermittent hormone therapy PSA 01/21 <0.1, 04/22 <0.1, 10/22 PSA < 0.1, T 2, 01/22 PSA <0.1, T 1, 04/23 PSA <0.1 T12, 10/23 2.8 212, 01/23 10.2 288, 04/24 P 1.8 T 3, 07/24 1.3 T 3, 11/23 0.8 T 2 Urinary urgency and frequency Secondary to prostate cancer therapy Radiation cystitis Trial of Toviaz with terazosin Failed tibial stimulation Failed oxybutynin, vesicare, toviaz [facility] Medical History CHF (congestive heart failure) Overweight Renal cyst Tobacco dependence Urinary incontinence Iron deficiency anemia Hx of radiation therapy Stenosis of lumbosacral spine Falls Hypertension Hypercholesteremia Kidney disease Macular degeneration Hematuria Urgency incontinence Prostate cancer Surgical History History of incision and drainage Spinal surgery in prior 3 months History of prostate surgery History of back surgery Family History Other No family history of coronary artery disease Social History Household Members: Spouse Housing: House Are you a primary after school caregiver to a significant other at home: No Do you presently have visiting nurse or other home services: No Alcohol intake: former Patient Tobacco Use Status: Current someday Tobacco user Smoking Start Date: 06/18/61 Tobacco use type: Cigarette Cigarette Packs Per Day: 0.5 Cigarettes Per Day: 2 Years Smoked: 50 e-Cigarette/Vaping Use: Never Used Second Hand Smoke Exposure: No Advance Directives Date on File: 02/19/21 service: Yes Current occupational status: retired Office Meds Eligard (6 month) 45 mg (6 month) subcutaneous syringe Performing Provider: Ruddy Mace MD [facility] [place] Administered by: Hector Ratliff LPN on 05/10/24 12:00 Dose Route Admin Location Dispensed Lot Number Expiration Date [facility] [employer] 45 mg subcut left arm 45 mg [id number] 07/02/25 84089-720-61 [employer] Assessment & Plan Assessment & Plan Orders: Orders AMB Urinalysis Automated Today Z13.9 - Encounter for screening, unspecified Prostate Specific Antigen 3 Months C61 - Malignant neoplasm of prostate, C79.51 - Secondary malignant neoplasm of bone Testosterone, Total 3 Months C61 - Malignant neoplasm of prostate, C79.51 - Secondary malignant neoplasm of bone Coding
== END 2024-05-10 12:04 | disposition home or self-care (01) ==
PROVIDERS: PCP Internal Medicine Medical Oncology; Visit Provider Urology
DX: C61 Malignant neoplasm of prostate (principal); C79.51 Secondary malignant neoplasm of bone

== ENCOUNTER → 2024-05-10 11:30 | Outpatient (BNVA) | payer MEDICARE, SELFPAY | PROVIDERS: PCP Internal Medicine Medical Oncology; Visit Provider Urology | DX: C61 Malignant neoplasm of prostate (principal); C79.51 Secondary malignant neoplasm of bone; R35.0 Frequency of micturition; R39.15 Urgency of urination | CPT/HCPCS: 96402; 99212; J9217 ==

== ENCOUNTER 2024-05-19 10:49 | Outpatient (AMB) | payer MEDICARE, SELFPAY ==
--- NOTE | 2024-05-19 10:59 | HO.NEPHOV_ITS ---
Vital Signs 05/19/24 11:00 Height 6 ft 2 in Weight 171 lb BMI 22.0 BP 122/64 Blood Pressure Location Lt brachial Position Sitting Pulse 96 Pulse Source Pulse Oximeter Pulse Oximetry (%) 99 Oxygen Delivery Method Room Air Intake Visit Reasons: Anemia-LVM Freight Broker Agent Required: No Accompanied by: Self / Same As Patient Allergies No Known Allergies [No Known Allergies*] Allergy (Verified 05/19/24 11:01) Medication List - Last Reconciled 05/19/24 by Jon Ma MD ferrous gluconate 1 tab PO QAM HPI Comments Details: Keshav is a elderly man with a history of prostate cancer status post radiation. He is here for follow-up. He has stage III CKD. Continues to smoke about half a pack a day. He continues have back pain and leg pain. Was seen by Dr. Rendon an RAUL was normal. He continues have increased urinary frequency. He is being actively followed by Urology. 09/08/23: Cr and K are up; Increased frequency;c/o Back pain 01/18/2024. \Has metastatic prostate CA c/o Back pain WAiting for bone scan HAs incontinence s/p REcent UTI 05/19/24 Here for follow up Being followed by Onc and Jaw lesion+ PFSH Medical History CHF (congestive heart failure) Overweight Renal cyst Tobacco dependence Urinary incontinence Iron deficiency anemia Hx of radiation therapy Stenosis of lumbosacral spine Falls Hypertension Hypercholesteremia Kidney disease Macular degeneration Hematuria Urgency incontinence Prostate cancer Surgical History History of incision and drainage Spinal surgery in prior 3 months History of prostate surgery History of back surgery Family History Other No family history of coronary artery disease Social History Household Members: Spouse Housing: House Are you a primary youth care professional to a significant other at home: No Do you presently have visiting nurse or other home services: No Alcohol intake: former Patient Tobacco Use Status: Current someday Tobacco user Smoking Start Date: 06/18/61 Tobacco use type: Cigarette Cigarette Packs Per Day: 0.5 Cigarettes Per Day: 2 Years Smoked: 50 e-Cigarette/Vaping Use: Never Used Second Hand Smoke Exposure: No Advance Directives Date on File: 02/19/21 service: Yes Current occupational status: retired Physical Exam Vital Signs: Last Vital Signs Pulse 96 05/19/24 11:00 BP 122/64 05/19/24 11:00 Pulse Ox 99 05/19/24 11:00 Oxygen Delivery Method Room Air 05/19/24 11:00 BMI result Body Mass Index 22.0 Comfortable Neck supple no JVD. Lungs entry equal no rales. Heart S1-S2 heard no gallop or rub. Abdomen soft nontender. Neuro alert awake oriented. No asterixis. Extremities no edema. Results Reviewed Nephrology Results: Hgb 10.2 g/dl (14.0-18.0) L 05/06/24 WBC 7.0 X10*3/uL (4.8-10.8) 05/06/24 Plt Count 243 X10*3/uL (160-400) 05/06/24 Sodium 142 mmol/L (135-145) 05/06/24 Potassium 5.6 mmol/L (3.3-5.1) H 05/06/24 Chloride 110 mmol/L (96-108) H 05/06/24 Carbon Dioxide 27 mmol/L (22-29) 05/06/24 BUN 34 mg/dL (9-16) H 05/06/24 Creatinine 2.10 mg/dL (0.5-1.4) H 05/06/24 Calcium 8.7 mg/dL (8.4-10.2) 05/06/24 Assessment & Plan Assessment & Plan (1) Malignant neoplasm prostate: Code(s): C61 - Malignant neoplasm of prostate Category: Medical (2) Anemia: Code(s): D64.9 - Anemia, unspecified Category: Medical (3) PAD (peripheral artery disease): Code(s): I73.9 - Peripheral vascular disease, unspecified Category: Medical (4) CKD (chronic kidney disease) stage 3, GFR 30-59 ml/min: Code(s): N18.30 - Chronic kidney disease, stage 3 unspecified Category: Medical (5) Hypertension: Comment: no meds currently Code(s): I10 - Essential (primary) hypertension Category: Medical Plan Keshav has CKD 3B. Creatinine is around 1.9 mg/dL which is close to the baseline. Watch for urinary retention. Continue follow up with Urology. Continue to avoid nephrotoxins including NSAIDs. History of metastatic prostate cancer status post chemo and radiation. Being actively followed by Urology Hypertension : blood pressure controlled no changes are made to his medications Stay on low-sodium diet. Anemia. Being followed by Dr. Nolan and gets vitamin B12 injections. Discussed smoking cessation Mild hyperkalemia Encouraged him to stay on a low-potassium Add Lokelma 5 gm PO twice a week Orders: Orders Basic Metabolic Panel 3 Months N18.30 - Chronic kidney disease, stage 3 unspecified Medications: New sodium zirconium cyclosilicate (Lokelma) 5 grams PO .two times a week 11 ea 3RF hyperkalemia Coding Level of Care Code Est Pt Level 4 (41122) Diagnoses Malignant neoplasm prostate C61 Anemia D64.9 PAD (peripheral artery disease) I73.9 CKD (chronic kidney disease) stage 3, GFR 30-59 ml/min N18.30 Hypertension I10
[2024-05-19 11:00] VITALS: BP 122/64; PULSE 96; O2SAT 99; BMI 22.0
== END 2024-05-19 11:21 | disposition home or self-care (01) ==
PROVIDERS: PCP Internal Medicine Medical Oncology; Visit Provider Internal Medicine Hypertension Specialist
DX: C61 Malignant neoplasm of prostate (principal); D64.9 Anemia, unspecified; I73.9 Peripheral vascular disease, unspecified; N18.30 Chronic kidney disease, stage 3 unspecified; I10 Essential (primary) hypertension
CPT/HCPCS: 99214

== ENCOUNTER → 2024-05-19 10:49 | Outpatient (BNVA) | payer MEDICARE, SELFPAY | PROVIDERS: PCP Internal Medicine Medical Oncology; Visit Provider Internal Medicine Hypertension Specialist | DX: I12.9 Hypertensive chronic kidney disease with stage 1 through stage 4 chronic kidney disease, or unspecified chronic kidney disease (principal); N18.30 Chronic kidney disease, stage 3 unspecified; C61 Malignant neoplasm of prostate; D64.9 Anemia, unspecified; I73.9 Peripheral vascular disease, unspecified | CPT/HCPCS: 99212 ==

== ENCOUNTER 2024-06-30 08:04 | Outpatient (REF) | payer MEDICARE, SELFPAY ==
--- OUTSIDE RECORDS SUMMARY | 2024-06-30 08:16 | XMS_ITS | Encounter Summary ---
Author Organization [facility] Address [address] [place] [address] Phone Care Team Providers Care Silk Screen Processor Name Role Phone Jose G Dickerson MD Primary Care Provider [phone] Reason for Visit * Reason Comments Med Refill Encounter Details Date Type Department Care Team (Late st Contact Info) Description 02/11/2023 Refill [facility] [address] [place] [phone] Jon Ma MD Social History Tobacco Use Types Packs/Day Years Used Date Smoking Tobacco: Former Cigarettes Smokeless Tobacco: Never Alcohol Use Standard Drinks/Week Comments Yes 0 (1 standard drink = 0.6 oz pure alcohol) Alcoholic Drinks/day: Occasional social drink Sex and Gender Information Value Date Recorded Sex Assigned at Not on file Legal Sex Male 4:56 PM EST Gender Identity Not on file Sexual Orientation Not on file documented as of this encounter Plan of Treatment Not on file documented as of this encounter Visit Diagnoses Not on filedocumented in this encounter Care Teams Silk Screen Processor Relationship Specialty Start Date End Date Jose G Dickerson MD [address] [place] [address] [id number] [facility] - General Medical Oncology 04/05/21 documented as of this encounter
--- OUTSIDE RECORDS SUMMARY | 2024-06-30 08:16 | XMS_ITS | Clinical Summary ---
Author Organization [facility] Address [address] [place] [address] Phone Care Team Providers Care Science Education Professor Name Role Phone Jose G Dickerson MD Primary Care Provider [phone] Allergies No known active allergies Medications No known medications Active Problems Problem Noted Date Diagnosed Date Acute kidney failure 08/27/2021 Encounter for observation fo r other suspected exposure to biological agent ruled out 08/27/2021 Heart failure 08/27/2021 Klebsiella pneumoniae (K. pn eumoniae) as the cause of diseases classified elsewhere 08/27/2021 Macular degeneration 08/27/2021 Nondisplaced fracture of pro ximal phalanx of right great toe, subsequent encounter for fracture with routine healing 08/27/2021 Sepsis 08/27/2021 Rhabdomyolysis 08/27/2021 Repeated falls 08/27/2021 Personal history of malignant neoplasm of prosta te 08/27/2021 Thrombocytopenia 08/27/2021 Urinary tract infection 08/27/2021 Anemia 07/25/2020 Blood in urine 07/25/2020 Chronic kidney disease stage 3 07/25/2020 Hypertensive disorder 07/25/2020 Hypertensive heart and renal disease with (congestive) heart failure 07/25/2020 Serum creatinine above reference range Family History Relation Status Comments Father Unknown Mother Unknown Social History Tobacco Use Types Packs/Day Years Used Date Smoking Tobacco: Former Cigarettes Smokeless Tobacco: Never Tobacco Cessation:Counseling Given: Not Answered Alcohol Use Standard Drinks/Week Comments Yes 0 (1 standard drink = 0.6 oz pure alcohol) Alcoholic Drinks/day: Occasional social drink Sex and Gender Information Value Date Recorded Sex Assigned at Not on file Legal Sex Male 4:56 PM EST Gender Identity Not on file Sexual Orientation Not on file Last Filed Vital Signs Vital Sign Reading Time Taken Comments Blood Pressure 119/65 11/24/2022 3:06 PM EDT Pulse 74 11/24/2022 3:06 PM EDT Temperature - - Respiratory Rate - - Oxygen Saturation 96% 11/24/2022 3:06 PM EDT Inhaled Oxygen Concentration - - Weight 71.4 kg (157 lb 6.4 oz) 11/24/2022 3:06 P M EDT Height 185.4 cm (6' 1 ) 07/24/2022 2:06 PM EDT Body Mass Index 20.77 07/24/2022 2:06 PM EDT Plan of Treatment Health Maintenance Due Date Last Done Comments Pneumococcal Vaccine: 65+ Ye ars (1 of 2 - PCV) 1956 Influenza Vaccine (#1) 2024 Hepatitis B Vaccine Aged Out No longe r eligible based on patient's age to complete this topic Insurance [facility] MEDICARE [place] [id number] [facility] MED[facility] Care Teams Science Education Professor Relationship Specialty Start Date End Date Jose G Dickerson MD [address] [place] [address] [id number] [place] PCP - General Medical Oncology 04/05/21
--- OUTSIDE RECORDS SUMMARY | 2024-06-30 08:16 | XMS_ITS ---
Author Organization Jose G Dickerson III, MD Address [address] [place] [address] Care Team Providers Care Manager Credit Risk Name Role Phone Jose G Dickerson Primary Care Provider Allergies Allergen (clinical drug ingredient) Drug/Non Drug Allergy documented on EMR Reaction Allergy Type Onset Date Status No Known Drug Allergy Unknown Drug Allergy Active REASON FOR VISIT B-12 INJECTION, Bone scan positive right mandible ramus, Pernicious anemia, Advanced prostate cancer, Androgen deprivation therapy, Urinary incontinence, Tobacco dependence, Peripheral arterial disease, Hypertension, Chronic renal disease stage III Medications Medication SIG (Take, Route, Frequency, Duration) Notes Start Date End Date Status Ferrous Gluconate 324 (38 Fe) MG 1 tablet Orally daily 03/30/2024 Active Cyanocobalamin 1000 MCG/ML 1 mL Injection 03/31/20 Active Xgeva 120 MG/1.7ML as directed Subcutan eous Once a month Active Social History Tobacco Use: Social History Observation Description Date Details (start date - stop date) Current Smoker NA - NA Sex Assigned At : Social History Observation Description Sex Assigned At Male Tobacco Use/Smoking Question Answer Notes Patient is a current smoker How often do you smoke cigarettes? some days, bu t not every day How many cigarettes a day do you smoke? 5 or les s How soon after you wake up d o you smoke your first cigarette? after 60 minutes Are you interested in quitting? Thinking about q uitting Additional Findings: Tobacco User Light cigarett e smoker ((1-9 cigs/day) Vital Signs Temperature 97.2 degrees Fahrenheit 04/28/20 24 Blood pressure systolic 116 mm Hg 04/28/20 24 Blood pressure diastolic 65 mm Hg 024 Heart Rate 82 /min 04/28/2024 Height 69 in 04/28/2024 Weight 168 lbs 04/28/2024 BMI 24.81 kg/m2 04/28/2024 Encounters Encounter Location Date Provider Diagnosis Jose G Dickerson III, MD [address] [place] [address] [place] [address] 04/28/2024 Jose G Dickerson Essential hypertensi on I10 ; Prostate cancer C61 ; Stage 3 chronic kidney disease N18.3 ; Tobacco dependence F17.200 ; Iron deficiency anemia, unspecified iron deficiency anemia type D50.9 ; Peripheral arterial occlusive disease I77.9 ; Macular degeneration of both eyes, unspecified type H35.30 and Pernicious anemia D51.0 Assessments Encounter Date Diagnosis (ICD Code) Assessment Notes Treatment Notes Treatment Clinical Notes 04/28/2024 Essential hypertension (ICD-10 - I10) His blood pressure is currently stable and controlled at 116/65. He was continued on his current medication without change. 04/28/2024 Prostate cancer (ICD-10 - C61) A recent bone scan showed abnormality in the right mandible and a new lesion in a sinus.Plain films show no lesions there. The referred back to medical oncology for consideration of considering his exgeva. The PSA continues to fall now being 0.13 which raises the question of the etiology of the mandibular abnormality. He is going to have x-rays of that area to rule out osteonecrosis from his bisphosphonate therapy. That medication is temporarily on hold. 04/28/2024 Stage 3 chronic kidney disease (ICD-10 - N18.3) His renal function is slightly worse. He continues to hydrate himself well in the warm weather. His BUN is 36 and his creatinine is 2.12. His GFR has fallen to 31. He will follow up with renal. 04/28/2024 Tobacco dependence (ICD-10 - F17.200) I have discussed with him all of the long-term consequences of smoking and he is well aware of them. I have offered to refer him to smoking cessation programs at the [facility] and he will consider this. 04/28/2024 Iron deficiency anemia, unspecified iron deficiency anemia type (ICD-10 - D50.9) His ferritin has fallen to 15. He has been much more mindful of taking his iron therapy. A repeat ferritin and CBC will be done in near future. His current hematocrit is 32.6. It is normochromic and normocytic. 04/28/2024 Peripheral arterial occlusive disease (ICD-10 - I77.9) He reports that his claudication is very mild and hardly bothers him. This seems not to be an active problem for him at this time. 04/28/2024 Macular degeneration of both eyes, unspecified type (ICD-10 - H35.30) He will continue to receive his bevacizumab injections from his central service technician. 04/28/2024 Pernicious anemia (ICD-10 - D51.0) He received 1000 mcg of vitamin B12by intramuscular injection in the left armToday without difficulty. Plan Of Treatment Medication Medication Name Sig Start Date Stop Date Notes Ferrous Gluconate 324 (38 Fe ) MG 1 tablet Orally daily 03/30/2024 Cyanocobalamin 1000 MCG/ML 1 mL Injection 03/31/2024 Xgeva 120 MG/1.7ML as directed Subcutan eous Once a month Next Appt Details Follow Up: 4 Weeks, Reason: OV, B12 Injection Provider Name:Jose G Dickerson, 07/07/2024 11:00:00 AM, [address] [place] [address] [address] [place], [place], [phone], Provider Name:Jose G Dickerson, 04/19/2025 02:00:00 PM, [address] [place] [address] [address] [place], [place], [phone], Procedure Notes * Category Sub-Category Detail Notes Injection Dose 1000 mg Route IM Site left arm Given by Dr. Dickerson Injected: B-12 Progress Notes * MACI CONLEY PDOB:1949 (74 yo M)Acc No.[id number]:04/28/2024 Patient:?MACI CONLEY Provider:?Jose G Dickerson MD :1950???Age:74 Y???Sex:Male Feng e:04/28/2024 Address:[address] [place] [address] [id number] Subjective: * Chief Complaints: * ???B-12 INJECTIONBone scan p ositive right mandible ramusPernicious anemiaAdvanced prostate cancerAndrogen deprivation therapyUrinary incontinenceTobacco dependencePeripheral arterial diseaseHypertensionChronic renal disease stage III * HPI: ???COVID-19 Screening:?Questions?Have you had any new onset fever, chills, cough, congestion, sore throat, shortness of breath, muscle aches??No ???:?The patient, a 74-year-old male, reported a fall that occurred two days prior to the consultation. He mentioned that he did not sustain any injuries from the fall, but experienced difficulty standing up due to a lack of strength in his legs. He also reported an issue with his dentures, which had been causing irritation on the right side of his jaw. The irritation began a week after the dentist adjusted his dentures. The patient also mentioned that he had been receiving B12 shots from the doctor.? He was given an injection of vitamin B12 today for his pernicious anemia.? A recent bone scan showed uptake in the right mandible.? He has been receiving monthly exgeva.? Plain films of the mandible did not show a lesion.? He reports he recently saw a dentist because the lower denture has been irritating the inside of his mouth adjacent to the mandibular ramus.? This may be the cause of the bone scan abnormality.? Is going to see his medical oncologist in the near future.? His main complaint today was chronic urinary incontinence.? She has been bothering him lately.? He has appointment with a urologist May 10, 2024.? I encouraged him to speak with urology about his options for incontinence.? He was initially treated for prostate cancer with radiation now with surgery so there may be more options for trreatment. * ROS:?General/Constitutional:?pain?Lower thoracic spine, otherwiseonly normal aches and pains, Denies pain in the mandible.?Chills?denies.?Fatigue?admits.?Fever?denies.?ENT:?Decreased hearing?denies.?Respiratory:?Cough?non-productive.?Cardiovascular:?Chest pain with exertion?denies.?Dyspnea on exertion?denies.?Shortness of breath?denies.?Gastrointestinal:?Constipation?occasional.?Decreased appetite?denies.?Diarrhea?denies.?Heartburn?denies.?Nausea?denies.?Rectal bleeding?denies.?Vomiting?denies.?Hematology:?bruising?denies.?petechiae?denies.?Swollen glands?none have been noted.?Genitourinary:?Frequent urination?twice a night.?Musculoskeletal:?Muscle aches?denies.?Painful joints?denies.?Sciatica?denies.?Weakness?denies.?Skin:?Itching?denies.?Rash?denies.?Skin lesion(s)?denies.?Neurologic:?Difficulty speaking?denies.?Dizziness?denies.?Headache?denies.?Low back pain?denies.?Psychiatric:?Depressed mood?which is mild.? * Medical History:? * Surgical History:?incision a nd drainage left lateral thigh abscess 2009excision draining scrotal sinus 2014cryoablation of the prostate 2015history of back surgery urgical drainage of scrotal abscess under anesthesia [facility] ataract Surgery, right eye 2023No history * Hospitalization/Major Diagno stic Procedure:?CKD, CHF and HTN osterior Fusion Lumbar spine L3- L4 rainage of scrotal abscess. [facility] 03/2022No history * Family History:?Father: dece ased 65 yrs, Coronary artery disease.?Mother: 64 yrs, COPD.?Siblings: .?1 son(s) . .? His sister in an accident due to a fall. He is not aware of any inherited cancer family syndrome. He is not aware of any family history of mental illness or addiction or substance abuse. * Social History:?Tobacco Use:?Tobacco Use/Smoking?Patient is a?current smoker ?How often do you smoke cigarettes??some days, but not every day ?How many cigarettes a day do you smoke??5 or less ?How soon after you wake up do you smoke your first cigarette??after 60 minutes ?Are you interested in quitting??Thinking about quitting ?Additional Findings: Tobacco User?Light cigarette smoker ((1-9 cigs/day) ???He lives in [facility]. He is not a Hinduism. He is and lives with his . He smokes 5 cigarettes per day. * Medications:?TakingXgeva 120 MG/1.7ML Solution as directed Subcutaneous Once a month Cyanocobalamin 1000 MCG/ML Solution 1 mL Injection Ferrous Gluconate 324 (38 Fe) MG Tablet 1 tablet Orally daily Taking Xgeva 120 MG/1.7ML Solution as directed Subcutaneous Once a month Taking Cyanocobalamin 1000 MCG/ML Solution 1 mL Injection Taking Ferrous Gluconate 324 (38 Fe) MG Tablet 1 tablet Orally daily DiscontinuedFerrous Gluconate 324 (38 Fe) MG Tablet 1 tablet Orally once a day Medication List reviewed and reconciled with the patientDiscontinued Ferrous Gluconate 324 (38 Fe) MG Tablet 1 tablet Orally once a day Medication List reviewed and reconciled with the patient * Allergies:?No Known Drug All ergyno[Allergies Verified] Objective: * Vitals:?Ht: 69, Wt:168, BMI: 24.81, BP:116/65, HR:82, Temp:97.2, Wt-k.2. * ???Past Orders: Imaging:NM bone scan whole b prosper * Performed Date 02/24/2024 04/14/2022 10:42 AM 02:15 PM Order Date 02/24/2024 04/14/2022 ???Imaging:XR mandible min 4V (Order Date - 04/16/2024) (Performed Date - 04/16/2024) * Lab:Vitamin B12 * Collection Date 03/22/2024 09/15/2023 06/09/2023 Collection Time 08:28 AM 01:52 PM 12:46 PM Order Date 03/22/2024 09/15/2023 06/09/2023 Vitamin B12 665 (Ref Range: 200-900 pg/mL) 619 (Ref Range: 200-900 pg/mL) 784 (Ref Range: 200-900 pg/mL) * Lab:Prostate Specific Antige n * Collection Date 03/22/2024 12/07/2023 09/15/2023 Collection Time 08:28 AM 08:07 AM 01:52 PM Order Date 03/22/2024 12/07/2023 09/15/2023 Prostate Specific Antigen 0.13 (Ref Range: <0.05-4.0 ng/mL) 0.25 (Ref Range: <0.05-4.0 ng/mL) 0.17 (Ref Range: <0.05-4.0 ng/mL) * Lab:Ferritin * Collection Date 03/22/2024 12/07/2023 05/05/2023 Collection Time 08:28 AM 08:07 AM 10:01 AM Order Date 03/22/2024 12/07/2023 05/05/2023 Ferritin 15?L (Ref Range: 20-250 ng/mL) 110 (Ref Range: 20-250 ng/mL) 37 (Ref Range: 20-250 ng/mL) * Lab:Comprehensive Met. Panel * Collection Date 03/22/2024 12/07/2023 09/15/2023 Collection Time 08:28 AM 08:07 AM 01:52 PM Order Date 03/22/2024 12/07/2023 09/15/2023 Sodium 143 (Ref Range: 135-145 mmol/L) 141 (Ref Range: 135-145 mmol/L) 141 (Ref Range: 135-145 mmol/L) Bilirubin Total 0.2 (Ref Range: 0.0-1.0 mg/dL) 0.2 (Ref Range: 0.0-1.0 mg/dL) 0.1 (Ref Range: 0.0-1.0 mg/dL) Aspartate Amino Transferase 19 (Ref Range: 5-37 U/L) 11 (Ref Range: 5-37 U/L) 14 (Ref Range: 5-37 U/L) Alanine Aminotransferase 11 (Ref Range: 0-40 U/L) 10 (Ref Range: 0-40 U/L) 9 (Ref Range: 0-40 U/L) Total Protein 6.7 (Ref Range: 6.5-8.0 g/dL) 6.9 (Ref Range: 6.5-8.0 g/dL) 7.1 (Ref Range: 6.5-8.0 g/dL) Albumin Level 3.9 (Ref Range: 3.5-5.0 g/dL) 3.8 (Ref Range: 3.5-5.0 g/dL) 4.2 (Ref Range: 3.5-5.0 g/dL) Alkaline Phosphatase 69 (Ref Range: 39-117 U/L) 96 (Ref Range: 39-117 U/L) 70 (Ref Range: 39-117 U/L) Potassium 5.2?H (Ref Range: 3.3-5.1 mmol/L) 5.1 (Ref Range: 3.3-5.1 mmol/L) 4.4 (Ref Range: 3.3-5.1 mmol/L) Chloride 110?H (Ref Range: 96-108 mmol/L) 111?H (Ref Range: 96-108 mmol/L) 107 (Ref Range: 96-108 mmol/L) Carbon Dioxide 28 (Ref Range: 22-29 mmol/L) 24 (Ref Range: 22-29 mmol/L) 23 (Ref Range: 22-29 mmol/L) Anion Gap 10?L (Ref Range: 12-20) 11?L (Ref Range: 12-20) 15 (Ref Range: 12-20) Blood Urea Nitrogen 36?H (Ref Range: 9-16 mg/dL) 29?H (Ref Range: 9-16 mg/dL) 24?H (Ref Range: 9-16 mg/dL) Creatinine 2.12?H (Ref Range: 0.5-1.4 mg/dL) 1.82?H (Ref Range: 0.5-1.4 mg/dL) 1.59?H (Ref Range: 0.5-1.4 mg/dL) Estimated Glomerular Filt Rate 31 36 43 Glucose Random 98 (Ref Range: 60-115 mg/dL) 91 (Ref Range: 60-115 mg/dL) 110 (Ref Range: 60-115 mg/dL) Calcium 9.0 (Ref Range: 8.4-10.2 mg/dL) 9.3 (Ref Range: 8.4-10.2 mg/dL) 9.4 (Ref Range: 8.4-10.2 mg/dL) * Lab:Complete Blood Count Aut o Diff * Collection Date 03/22/2024 12/07/2023 09/15/2023 Collection Time 08:28 AM 08:07 AM 01:52 PM Order Date 03/22/2024 12/07/2023 09/15/2023 White Blood Count 6.8 (Ref Range: 4.8-10.8 X10*3/uL) 7.0 (Ref Range: 4.8-10.8 X10*3/uL) 5.8 (Ref Range: 4.8-10.8 X10*3/uL) Red Blood Count 3.45?L (Ref Range: 4.60-5.80 X10*6/uL) 3.23?L (Ref Range: 4.60-5.80 X10*6/uL) 3.71?L (Ref Range: 4.60-5.80 X10*6/uL) Hemoglobin 9.8?L (Ref Range: 14.0-18.0 g/dl) 9.2?L (Ref Range: 14.0-18.0 g/dl) 10.9?L (Ref Range: 14.0-18.0 g/dl) Hematocrit 32.6?L (Ref Range: 42.0-52.0 %) 30.5?L (Ref Range: 42.0-52.0 %) 33.9?L (Ref Range: 42.0-52.0 %) Mean Corpuscular Volume 94.5 (Ref Range: 80.0-98.0 fL) 94.4 (Ref Range: 80.0-98.0 fL) 91.4 (Ref Range: 80.0-98.0 fL) Mean Corpuscular Hemoglobin 28.4 (Ref Range: 27.0-33.0 pg) 28.5 (Ref Range: 27.0-33.0 pg) 29.4 (Ref Range: 27.0-33.0 pg) Mean Corpuscular HGB Conc 30.1?L (Ref Range: 31.0-36.0 g/dl) 30.2?L (Ref Range: 31.0-36.0 g/dl) 32.2 (Ref Range: 31.0-36.0 g/dl) Red Cell Distribution Width 13.1 (Ref Range: 11.0-16.0 %) 14.1 (Ref Range: 11.0-16.0 %) 13.5 (Ref Range: 11.0-16.0 %) Platelet Count 240 (Ref Range: 160-400 X10*3/uL) 324 (Ref Range: 160-400 X10*3/uL) 241 (Ref Range: 160-400 X10*3/uL) Mean Platelet Volume 9.3?L (Ref Range: 9.4-12.4 fL) 9.2?L (Ref Range: 9.4-12.4 fL) 10.3 (Ref Range: 9.4-12.4 fL) Neutrophils Percent Auto 69.5 (Ref Range: 45-73 %) 72.2 (Ref Range: 45-73 %) 71.1 (Ref Range: 45-73 %) Imm Gran Pct Auto 0.4 (Ref Range: 0.0-0.4 %) 0.9?H (Ref Range: 0.0-0.4 %) 0.9?H (Ref Range: 0.0-0.4 %) Lymphocytes Percent Auto 14.9?L (Ref Range: 20-40 %) 11.9?L (Ref Range: 20-40 %) 14.6?L (Ref Range: 20-40 %) Monocytes Percent Auto 8.9 (Ref Range: 2-11 %) 10.8 (Ref Range: 2-11 %) 6.7 (Ref Range: 2-11 %) Eosinophils Percent Auto 5.6?H (Ref Range: 0-4 %) 3.6 (Ref Range: 0-4 %) 6.0?H (Ref Range: 0-4 %) Basophils Percent Auto 0.7 (Ref Range: 0-2 %) 0.6 (Ref Range: 0-2 %) 0.7 (Ref Range: 0-2 %) NRBC Pct Auto 0.0 (Ref Range: 0.0-0.2 /100WBC) 0.0 (Ref Range: 0.0-0.2 /100WBC) 0.0 (Ref Range: 0.0-0.2 /100WBC) Neutrophils Absolute Auto 4.7 (Ref Range: 2.0-8.3 x10*3/uL) 5.0 (Ref Range: 2.0-8.3 x10*3/uL) 4.2 (Ref Range: 2.0-8.3 x10*3/uL) Imm Gran Abs Auto 0.03 (Ref Range: 0.00-0.03 X10*3/uL) 0.06?H (Ref Range: 0.00-0.03 X10*3/uL) 0.05?H (Ref Range: 0.00-0.03 X10*3/uL) Lymphocytes Absolute Auto 1.0?L (Ref Range: 1.2-4.9 X10*3/uL) 0.8?L (Ref Range: 1.2-4.9 X10*3/uL) 0.9?L (Ref Range: 1.2-4.9 X10*3/uL) Monocytes Absolute Auto 0.6 (Ref Range: 0.1-1.2 X10*3/uL) 0.8 (Ref Range: 0.1-1.2 X10*3/uL) 0.4 (Ref Range: 0.1-1.2 X10*3/uL) Eosinophils Absolute Auto 0.4 (Ref Range: 0.0-0.4 X10*3/uL) 0.3 (Ref Range: 0.0-0.4 X10*3/uL) 0.4 (Ref Range: 0.0-0.4 X10*3/uL) Basophils Absolute Auto 0.1 (Ref Range: 0.0-0.2 X10*3/uL) 0.0 (Ref Range: 0.0-0.2 X10*3/uL) 0.0 (Ref Range: 0.0-0.2 X10*3/uL) NRBC Abs Auto 0.000 (Ref Range: 0.0-0.012 X10*3/uL) 0.000 (Ref Range: 0.0-0.012 X10*3/uL) 0.000 (Ref Range: 0.0-0.012 X10*3/uL) * Examination: ???General Examination: ?GENERAL APPEARANCE:?pleasant, well nourished, well developed, in no acute distress, calm and relaxed, man.?HEAD:?atraumatic, normocephalic.?EYES:?eomi, perrla, anicteric, conjugate.?EARS:?normal.?NOSE:?septum intact.?ORAL CAVITY:?normal, unremarkable.?NECK/THYROID:?no jugular venous distention, no carotid bruit, thyroid normal.?LYMPH NODES:?no enlarged lymph nodes,spleen normal.?SKIN:?no suspicious lesions, anicteric.?HEART:?no clicks, gallops, murmurs, or rubs, regular rhythm, S1, S2 normal, no s3, or vascular bruits.?LUNGS:?clear to auscultation .?BREASTS:??no masses palpable bilaterally.?ABDOMEN:?bowel sounds normal, no ascites, no organomegaly, no mass.?RECTAL EXAM:?not examined.?MUSCULOSKELETAL:?extremities unremarkable, no clubbing, cyanosis or edema, Vertical surgical scar over the lumbosacral spine, protrusion T11 and T12 to painful to percussion, radiation changes tattoos around T11 and T12.?PERIPHERAL PULSES:?normal.?NEUROLOGIC:?alert and oriented, cranial nerves 2-12 grossly intact, deep tendon reflexes 2+ symmetrical, motor strength normal upper and lower extremities, sensory exam intact.?PSYCH:?alert, oriented.? Assessment: * Assessment: 1.?Prostate cancer - C61 (Pr imary)???Notes :A recent bone scan showed abnormality in the right mandible and a new lesion in a sinus.Plain films show no lesions there.? The referred back to medical oncology for consideration of considering his exgeva.? ?The PSA continues to fall now being 0.13 which raises the question of the etiology of the mandibular abnormality. He is going to have x-rays of that area to rule out osteonecrosis from his bisphosphonate therapy. That medication is temporarily on hold.???2.?Essential hypertension - I10???Notes :His blood pressure is currently stable and controlled at 116/65. He was continued on his current medication without change.???3.?Stage 3 chronic kidney disease - N18.3???Notes :His renal function is slightly worse. He continues to hydrate himself well in the warm weather. His BUN is 36 and his creatinine is 2.12. His GFR has fallen to 31. He will follow up with renal.???4.?Tobacco dependence - F17.200???Notes :I have discussed with him all of the long-term consequences of smoking and he is well aware of them. I have offered to refer him to smoking cessation programs at the [facility] and he will consider this.???5.?Iron deficiency anemia, unspecified iron deficiency anemia type - D50.9???Notes :His ferritin has fallen to 15. He has been much more mindful of taking his iron therapy. A repeat ferritin and CBC will be done in near future. His current hematocrit is 32.6. It is normochromic and normocytic.???6.?Peripheral arterial occlusive disease - I77.9???Notes :He reports that his claudication is very mild and hardly bothers him. This seems not to be an active problem for him at this time.???7.?Macular degeneration of both eyes, unspecified type - H35.30???Notes :He will continue to receive his bevacizumab injections from his central service technician.???8.?Pernicious anemia - D51.0???Notes :He received 1000 mcg of vitamin B12by intramuscular injection in the left armToday without difficulty.??? Plan: * Treatment: 2.?Others? Continue Xgeva Solution, 120 MG/1.7ML, as directed, Subcutaneous, Once a month;?Continue Ferrous Gluconate Tablet, 324 (38 Fe) MG, 1 tablet, Orally, daily.?? * Procedures:?Injection:?Injected:?B-12.?Dose?1000 mg.?Route?IM.?Site?left arm.?Given by?Dr. Dickerson.? * Procedure Codes:?41570 THER/ PROPH/DIAG INJ, SC/[id number] INJ VIT B-12 CYNOCOBLMN TO 1000 MCG * Preventive Medicine:? ??Counseling:?Smoking/Tobacco Use?Patient counseled on the dangers of tobacco use and urged to quit.?04/28/2024 ?Patient Lifestyle Goals?Patient wants to quit ?Treatment Goals?Set a quit date, Cut down by 1 cigarette a week ?Barriers?Stress ?Self-Management Plan?Make a plan to cut down number of cigarettes over time and set a date to work towards quitting * Follow Up:?4 Weeks (Reason: OV, B12 Injection) * Images: * Sign off status: Completed true * Provider:?Jose G Dickerson MD Date:?04/04 Generated for Kati aguilera/Jovana/Cortneyitting on:?06/30/2024 08:16 AM EST History and Physical Notes * HPI (History of Present Illness) Category Sub-Category Detail Notes COVID-19 Screening Questions Have you had any new onset fever, chills, cough, congestion, sore throat, shortness of breath, muscle aches?: No Examination Category Sub-Category Detail Notes General Examination GENERAL APPEARANCE: pleasant , well nourished, well developed, in no acute distress, calm and relaxed, man HEAD: atraumatic, normocep halic EYES: eomi, perrla, anicte beatriz, conjugate EARS: normal NOSE: septum intact NECK/THYROID: no jugular venous di stention, no carotid bruit, thyroid normal HEART: no clicks, gallops, murmurs, or rubs, regular rhythm, S1, S2 normal, no s3, or vascular bruits LUNGS: clear to auscultatio n ABDOMEN: bowel sounds normal, no ascites, no organomegaly, no mass NEUROLOGIC: alert and oriented, cranial nerves 2-12 grossly intact, deep tendon reflexes 2+ symmetrical, motor strength normal upper and lower extremities, sensory exam intact SKIN: no suspicious lesion s, anicteric PERIPHERAL PULSES: normal BREASTS: no masses palpable b ilaterally MUSCULOSKELETAL: extremities unremark able, no clubbing, cyanosis or edema, Vertical surgical scar over the lumbosacral spine, protrusion T11 and T12 to painful to percussion, radiation changes tattoos around T11 and T12 LYMPH NODES: no enlarged lymph no ritesh,spleen normal RECTAL EXAM: not examined PSYCH: alert, oriented ORAL CAVITY: normal, unremarkable
--- OUTSIDE RECORDS SUMMARY | 2024-06-30 08:17 | XMS_ITS ---
Author Organization [facility] Address Unknown Problems Problem Status Start Date End Date NONDISPLACED FRACTURE OF PRO XIMAL PHALANX OF LEFT LESSER TOE(S), INITIAL ENCOUNTER FOR CLOSED FRACTURE (Primary) (S92.515A - ICD-10-CM) RESOLVED 08/27/2021 022 RHABDOMYOLYSIS (Primary) (M62.82 - ICD-10-CM) ACTIVE 08/27/2021 SEPSIS, UNSPECIFIED ORGANISM (A41.9 - ICD-10-CM) ACTIV E 08/27/2021 URINARY TRACT INFECTION, SIT E NOT SPECIFIED (N39.0 - ICD-10-CM) ACTIVE 08/27/2021 CHRONIC KIDNEY DISEASE, STAG E 3 UNSPECIFIED (N18.30 - ICD-10-CM) ACTIVE 08/27/2021 ACUTE KIDNEY FAILURE, UNSPECIFIED (N17.9 - ICD-10-CM) ACTIVE 08/27/2021 THROMBOCYTOPENIA, UNSPECIFIED (D69.6 - ICD-10-CM) ACTI VE 08/27/2021 REPEATED FALLS (R29.6 - ICD-10-CM) ACTIVE 2021 HEART FAILURE, UNSPECIFIED (I50.9 - ICD-10-CM) ACTIVE 08/27/2021 ENCOUNTER FOR OBSERVATION FO R SUSPECTED EXPOSURE TO OTHER BIOLOGICAL AGENTS RULED OUT (Z03.818 - ICD-10-CM) ACTIVE 08/27/2021 NONDISPLACED FRACTURE OF PRO XIMAL PHALANX OF RIGHT GREAT TOE, SUBSEQUENT ENCOUNTER FOR FRACTURE WITH ROUTINE HEALING (S92.414D - ICD-10-CM) ACTIVE 08/27/2021 KLEBSIELLA PNEUMONIAE [K. PN EUMONIAE] THE CAUSE OF DISEASES CLASSIFIED ELSEWHERE (B96.1 - ICD-10-CM) ACTIVE 08/27/2021 UNSPECIFIED MACULAR DEGENERATION (H35.30 - ICD-10-CM) ACTIVE 08/27/2021 PERSONAL HISTORY OF MALIGNAN T NEOPLASM OF PROSTATE (Z85.46 - ICD-10-CM) ACTIVE 08/27/2021 Encounters Encounter Performer Performer Role Encounter Diagnoses Location Date Discharge - Discharged to home or self care - Other - Other [facility] 2 01:41 pm EDT - 2 01:52 pm EDT Immunizations Vaccine Date Influenza SARS-COV-2 (COVID-19) (PCV20)Pneumococcal Conjugate vaccine 20 -valent Social History
[2024-06-30 08:22] LABS: MANUAL DIFF FLAG NO
[2024-06-30 09:18] LABS: Basophils Absolute Auto 0.1 X10*3/uL (0.0-0.2); Basophils Percent Auto 0.8 % (0-2); Eosinophils Absolute Auto 0.4 X10*3/uL (0.0-0.4); Eosinophils Percent Auto 4.9 % (0-4); Hematocrit 33.1 % (42.0-52.0); Hemoglobin 9.9 g/dl (14.0-18.0); Imm Gran Abs Auto 0.03 X10*3/uL (0.00-0.03); Imm Gran Pct Auto 0.4 % (0.0-0.4); Lymphocytes Absolute Auto 0.9 X10*3/uL (1.2-4.9); Lymphocytes Percent Auto 13.3 % (20-40); Mean Corpuscular HGB Conc 29.9 g/dl (31.0-36.0); Mean Corpuscular Hemoglobin 28.2 pg (27.0-33.0); Mean Corpuscular Volume 94.3 fL (80.0-98.0); Mean Platelet Volume 9.5 fL (9.4-12.4); Monocytes Absolute Auto 0.6 X10*3/uL (0.1-1.2); Monocytes Percent Auto 8.6 % (2-11); Neutrophils Absolute Auto 5.1 x10*3/uL (2.0-8.3); Platelet Count 235 X10*3/uL (160-400); Red Blood Count 3.51 X10*6/uL (4.60-5.80); Red Cell Distribution Width 13.7 % (11.0-16.0); White Blood Count 7.1 X10*3/uL (4.8-10.8)
[2024-06-30 10:08] LABS: Alanine Aminotransferase 10 U/L (0-40); Albumin Level 3.8 g/dL (3.5-5.0); Alkaline Phosphatase 62 U/L (39-117); Anion Gap 11 (12-20); Aspartate Amino Transferase 18 U/L (5-37); Bilirubin Total 0.2 mg/dL (0.0-1.0); Blood Urea Nitrogen 30 mg/dL (9-16); Calcium 8.6 mg/dL (8.4-10.2); Carbon Dioxide 25 mmol/L (22-29); Chloride 111 mmol/L (96-108); Estimated Glomerular Filt Rate 35; Glucose Random 95 mg/dL (60-115); Potassium 5.1 mmol/L (3.3-5.1); Sodium 142 mmol/L (135-145)
[2024-06-30 10:21] LABS: Prostate Specific Antigen 0.12 ng/mL (<0.05-4.0); Vitamin B12 797 pg/mL (200-900)
[2024-06-30 10:25] LABS: Ferritin 32 ng/mL (20-250)
== END 2024-06-30 08:05 | disposition home or self-care (01) ==
LOC: HO.LAB 08:04
PROVIDERS: Absent Provider Internal Medicine Hypertension Specialist; PCP Internal Medicine Medical Oncology; Visit Provider Internal Medicine Medical Oncology
DX: I10 Essential (primary) hypertension (principal); C61 Malignant neoplasm of prostate; D50.9 Iron deficiency anemia, unspecified; Z12.5 Encounter for screening for malignant neoplasm of prostate
CPT/HCPCS: 36415; 80053; 82607; 82728; 84153; 85025

== ENCOUNTER 2024-07-07 13:29 | Outpatient (REF) | payer MEDICARE, SELFPAY ==
--- OUTSIDE RECORDS SUMMARY | 2024-07-07 16:27 | XMS_ITS | Clinical Summary ---
Author Organization [facility] Address [address] [place] [address] Phone Care Team Providers Care Truck Chauffeur Name Role Phone Jose G Dickerson MD Primary Care Provider [phone] Allergies No known active allergies Medications No [...] patient's age to complete this topic Insurance [facility] MEDICARE [place] [address] [id number] [facility] MEDICARE Care Teams Truck Chauffeur Relationship Specialty Start Date End Date Jose G Dickerson MD [address] [place] [address] [address] PCP - General Medical Oncology 04/05/21
--- OUTSIDE RECORDS SUMMARY | 2024-07-07 16:27 | XMS_ITS | Encounter Summary ---
Author Organization [facility] Address [address] [place] [address] Phone Care Team Providers Care Tailing Machine Operator Name Role Phone Jose G Dickerson MD Primary Care Provider [phone] Reason for Visit * Reason Comments Med Refill Encounter Details Date Type Department Care Team (Late st Contact Info) Description 02/11/2023 Refill [facility] [address] [place] [id number] Jon Ma MD Social History Tobacco Use [...] on filedocumented in this encounter Care Teams Tailing Machine Operator Relationship Specialty Start Date End Date Jose G Dickerson MD [address] [place] [address] [address] [facility] PCP - General Medical Oncology 04/05/21 documented as of this encounter
== END 2024-07-07 13:30 | disposition home or self-care (01) ==
LOC: HO.LNP 13:29
PROVIDERS: Visit Provider Internal Medicine Medical Oncology
DX: L02.811 Cutaneous abscess of head [any part, except face] (principal)
CPT/HCPCS: 87070; 87205

== ENCOUNTER 2024-07-19 12:36 | Outpatient (REF) | payer MEDICARE, SELFPAY ==
--- NOTE | ~2024-07-19 | US_ITS ---
EXAMINATION: Noninvasive assessment of the bilateral lower extremities with ARTERIAL DUPLEX, ANKLE BRACHIAL INDICES (ABIs), and PULSE VOLUME RECORDINGS (PVRs). CLINICAL INFORMATION: Peripheral vascular disease, unspecified. TECHNIQUE: Duplex Doppler techniques with waveform analysis and measurement of velocities in the bilateral common femoral, profunda femoris, superficial femoral, popliteal and tibial arteries were performed. Additionally, ankle pulse volume recordings, ankle pressure measurements and ankle brachial indices were obtained of the lower extremity arterial system bilaterally. The study was performed only at rest. COMPARISON: None FINDINGS: DIRECT DUPLEX DOPPLER FINDINGS: RIGHT LEG: Common femoral artery: 171 cm/s, phasicity: Monophasic. Spectral broadening. Profunda femoris artery: 40 cm/s, phasicity: Monophasic. Spectral broadening. Superficial femoral artery (proximal): 43 cm/s, phasicity: Monophasic. Spectral broadening. Superficial femoral artery (mid): 45 cm/s, phasicity: Monophasic. Superficial femoral artery (distal): 17 cm/s, phasicity: Monophasic. Popliteal artery: 35 cm/s, phasicity: Monophasic. Posterior tibial artery: 56 cm/s, phasicity: Monophasic. Peroneal artery: 14 cm/s, phasicity: Monophasic. Anterior tibial artery: 17 cm/s, phasicity: Monophasic. Dorsalis pedis artery: 16 cm/s, phasicity:Monophasic. Spectral broadening. LEFT LEG: Common femoral artery: 374 cm/s, phasicity: Biphasic. Spectral broadening. Profunda femoris artery: 88 cm/s, phasicity: Biphasic. Spectral broadening. Superficial femoral artery (proximal): 67 cm/s, phasicity: Biphasic. Superficial femoral artery (mid): 88 cm/s, phasicity: Biphasic. Superficial femoral artery (distal): 110 cm/s, phasicity: Biphasic. Popliteal artery: 65 cm/s, phasicity: Biphasic. Posterior tibial artery: 29 cm/s, phasicity: Monophasic. Spectral broadening. Peroneal artery: 22 cm/s, phasicity: Monophasic. Spectral broadening. Anterior tibial artery: 88 cm/s, phasicity: Biphasic. Spectral broadening. Dorsalis pedis artery: 29 cm/s, phasicity: Biphasic. Spectral broadening. BRACHIAL PRESSURES: Right: 139 Left: 150 ANKLE PRESSURES: Right: PT 113, DP 101 Left: PT 151, DP 138 ANKLE-BRACHIAL INDEX: Right: 0.75 Left: 1.01 ANKLE PVR WAVEFORMS: Right: Abnormal. Left: Abnormal. Abdominal aorta peak systolic diameter and velocities as follow: Proximal: 3.1 cm and 69 cm/s. Mid: 2.4 cm and 60 cm/s. Distal: 2.0 cm and 60 cm/s. Right iliac artery peak systolic velocity: Common: 64 cm/s. External: 54 cm/s. Left iliac artery peak systolic velocity: Common: 16 cm/s. External: 291 cm/s. US/US arterial duplex BI w/ RAUL IMPRESSION: Right leg: Severe inflow disease in the right lower extremity. Left leg: Moderate to severe inflow disease in the left lower extremity. RAUL Reference: - >1.4 = calcified vessels - 0.9 - 1.4 = normal - no significant arterial disease - 0.7 - 0.89 = mild peripheral arterial disease - 0.51 - 0.69 = moderate peripheral arterial disease - d 0.50 = severe peripheral arterial disease - < .30 = critical arterial disease Electronically signed by: Hugo Ralph MD 07/20/2024 10:40 AM EDT
== END 2024-07-19 12:37 | disposition home or self-care (01) ==
LOC: HO.US 12:36
PROVIDERS: PCP Internal Medicine Medical Oncology; Visit Provider Surgery Vascular Surgery
DX: I73.9 Peripheral vascular disease, unspecified (principal)
CPT/HCPCS: 76706; 93922; 93925

== ENCOUNTER → 2024-07-19 12:38 | Outpatient (BNV) | payer MEDICARE, SELFPAY | PROVIDERS: PCP Internal Medicine Medical Oncology; Visit Provider Radiology Diagnostic Radiology | DX: I73.9 Peripheral vascular disease, unspecified (principal) | CPT/HCPCS: 93922; 93925 ==

== ENCOUNTER 2024-08-04 10:15 | Inpatient (IN) | payer MEDICARE, SELFPAY ==
[2024-08-04] VITALS (11 sets, daily range): BP systolic 104–136; BP diastolic 45–76; PULSE 81–116; RESP 15–24; TEMP 36.9–40.1; O2SAT 94–97; BMI 21.8
--- NOTE | ~2024-08-04 | MR_ITS ---
EXAMINATION: MR LUMBAR SPINE WITHOUT AND WITH CONTRAST CLINICAL INFORMATION: Metastatic Prostate cancer. Left hip weakness. COMPARISON: May 09, 2022. Correlated to bone scan dated February 24, 2024. TECHNIQUE: MRI of the lumbar spine was obtained using routine sequences with and without contrast. Intravenous contrast: Gadavist 7.5 mL. No reported immediate complications. FINDINGS: Last rib-bearing vertebra labeled T12. Paramagnetic field distortion secondary to metallic hardware posterior elements of L3-L4. Bone marrow inhomogeneity throughout the axial skeleton. Increased intrinsic hyperintense T1 signal throughout the bone marrow of the axial skeleton related to fatty infiltration. There is a subtle bone marrow hyperintense STIR signal and enhancement involving the superior and posterior endplate of T12. There is a subtle bone marrow hyperintense STIR with the minimal enhancement throughout the vertebral bodies L2-L5. Grade 1 retrolisthesis L2-3 and L3-4. Multilevel marginal osteophyte formation and disc desiccation. Conus medullaris ends at inferior endplate of T12 with normal signal. No abnormal enhancement within the neural elements of the thecal sac/leptomeningeal compartment. T12-L1: No disc herniation. No neuroforamina stenosis. L1-2: Broad-based disc bulging. Facet joint and ligamentum flavum hypertrophy. No compression upon neural elements. L2-3: Broad-based disc bulging. Facet joint and ligamentum flavum hypertrophy. Central spinal canal and bilateral neuroforamina, left greater than the right stenosis encroaching the neural elements of the thecal sac and the exiting nerve roots. L3-4: Broad-based disc bulging. Facet joint and ligamentum flavum hypertrophy. CSF effacement of the thecal sac. Central spinal canal and bilateral neuroforamina stenosis compressing the neural elements. L4-5: Broad-based disc bulging. Facet joint and ligamentum flavum hypertrophy. Reduced AP diameter of the thecal sac and the neural foramina encroaching the neural elements. L5-S1: Broad-based disc bulging. Facet joint hypertrophy. No compression upon neural elements. Bilateral, multifocal different sizes nonenhancing fluid signal characteristic lesions in the kidneys. MR/MR lumbar spine wo/w con IMPRESSION: Less conspicuous osseous metastasis. Overall improved. No leptomeningeal enhancement. No acute pathologic fracture. Multilevel spondylosis resulting in central spinal canal and bilateral neuroforamina stenosis at L3-4 and to a lesser extent L2-3 and L4-5 levels compressing the neural elements of the thecal sac and the exiting nerve roots at L3-4. Electronically signed by: Hugo Ralph MD 08/09/2024 08:21 AM EDT
--- NOTE | ~2024-08-04 | XR_ITS ---
EXAMINATION: XR CHEST CLINICAL INFORMATION: fever COMPARISON: October 07, 2021. TECHNIQUE: Frontal view of the chest was obtained. FINDINGS: No consolidation, pleural effusion or pneumothorax. No hyperinflation. Cardiomediastinal silhouette size is normal. Calcified plaque thoracic aorta. Multilevel thoracic spondylosis. XR/XR chest 1V IMPRESSION: No acute airspace disease. Electronically signed by: Hugo Ralph MD 08/04/2024 12:12 PM EDT
--- NOTE | ~2024-08-04 | MR_ITS ---
CLINICAL HISTORY: Back pain. CT with T12 blastic lesion Pt stated he was in pain when laying flat fo r the scan, unable to repeat any. Hx prostate CA and known mets to bone MR of the thoracic spine before and after contrast administration. No comparison. Findings: There is mild lateral curve of the thoracolumbar spine. There is prominent fatty marrow replacement beginning at T11 extending inferiorly highly suspicious for sequela of previous radiation therapy. There is prominent heterogeneous signal in the T12 vertebral body that is indeterminate but concerning for metastatic disease. No other suspicious bony lesions are seen. There is multilevel degenerative disc disease. The thoracic cord is unremarkable. No significant narrowing of the spinal canal is identified. Impression: Heterogeneous signal in the T12 vertebral body suspicious for metastatic disease. There is no evidence of epidural extension and no other suspicious bony lesions are seen. Other findings as above. This document has been electronically signed by: Jose M Crabtree MD on 08/04/2024 18:18:16
--- NOTE | ~2024-08-04 | US_ITS ---
CLINICAL HISTORY: check for hydronephrosis US Renal Comparison: None Findings: Right kidney measures 10.9 cm in length. Left kidney measures 11.2 cm in length. Comparative images of the liver and spleen were not obtained for accurate evaluation of renal cortical echogenicity. Questionable increased right renal cortical echogenicity , due to questionable medical renal disease. No hydronephrosis (mild left-sided pyelectasia is seen). Bilateral simple renal cysts measuring up to 5.2 cm. Humeral IMPRESSION: No hydronephrosis. Questionable increased right renal cortical echogenicity due to questionable medical renal disease. This document has been electronically signed by: Julissa Castañeda MD on 08/06/2024 12:28:22
--- NOTE | ~2024-08-04 | XR_ITS ---
EXAMINATION: XR CHEST 2 VIEWS HISTORY: cough COMPARISON: Comparison is made with the prior examination dated 08/04/2024. FINDINGS: AP and lateral views of the chest are submitted. There is new patchy airspace opacity at the right lung base, consistent with pneumonia. The left lung is clear. There is no pleural effusion, pneumothorax, or pulmonary vascular congestion. The heart is normal in size. The bones are intact. XR/XR chest 2V IMPRESSION: Bibasilar pneumonia. Electronically signed by: Jose G Dennison MD 08/05/2024 02:36 PM EDT
--- NOTE | ~2024-08-04 | CT_ITS ---
CLINICAL HISTORY: fell and hit head CT head without contrast Comparison: Head CT from 10/07/2021 Findings: No acute intracranial hemorrhage. No midline shift or hydrocephalus. Mild volume loss is generalized. 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 No large arterial territorial infarction by CT. Fluid and mucosal thickening of the paranasal sinuses multifocal most pronounced in the ethmoid air cells. Retention cysts of the left maxillary sinus partially imaged. Small left mastoid effusion. No acute skull fracture. Prominent vessel channels noted. Previous right cataract procedure change. IMPRESSION: 1. No acute intracranial abnormality by CT. 2. No acute skull fracture. 3. Fluid and mucosal thickening of the ethmoid air cells as can be associated with sinusitis. This document has been electronically signed by: Boubacar Durbin MD on 08/05/2024 20:56:00
--- NOTE | ~2024-08-04 | CT_ITS ---
EXAMINATION: CT ABDOMEN AND PELVIS WITHOUT CONTRAST CLINICAL INFORMATION: Right flank pain. COMPARISON: March 04, 2022. TECHNIQUE: Multidetector volumetric imaging was performed from the superior aspect of the liver through the pubic symphysis. Sagittal and coronal reformatted images were obtained on the technologist's workstation. This CT examination was performed using dose optimization techniques as appropriate, variously including the following: *Automated exposure control *Adjustment of mA and/or kV according to patient size (this includes techniques or standardized protocols for targeted exams where dose is matched to indication/reason for exam; i.e. extremities or head) *Use of iterative reconstruction technique. DLP: 411 mGy centimeter. FINDINGS: Limited evaluation of the intra-abdominal organs and vascular structures due to lack of IV contrast. LUNG BASES: No acute airspace disease. LIVER, GALLBLADDER, AND BILIARY TREE: Liver measures 20 cm. No pericholecystic fluid collection or gallbladder wall thickening. No intrahepatic or extrahepatic biliary ductal dilatation. PANCREAS: No peripancreatic fluid collection. The parenchyma is diminished. No main pancreatic ductal dilatation. SPLEEN: 9 cm. ADRENAL GLANDS: No nodular lesions. KIDNEYS AND URETERS: Right kidney: No hydronephrosis. 1 mm calculus in the midportion/lower pole junction. Multifocal exophytic hypodensities/fluid density lesions throughout the parenchyma. Left kidney: Mild prominence of the renal pelvis, likely extrarenal pelvis. The ureter is not dilated. There is no calcifications throughout the left ureter or the left vesicoureteral junction. There is no calculus in the left pelvicalyceal system. There is wall thickening of the urothelium in the left renal pelvis. There are multifocal exophytic hypodensities in the parenchyma, the largest measures 4 cm. BLADDER: There is wall thickening with a collapsed morphology. GASTROINTESTINAL TRACT: Appendix is normal. Abundant stool. No intestinal obstruction pattern. No pneumatosis intestinalis. No pneumoperitoneum. No ascites. No pneumoperitoneum. ABDOMINAL WALL: Small fat-containing umbilical hernia. LYMPH NODES: Lymphadenopathy, left retroperitoneum/perirenal. VASCULAR: Mixed plaques throughout the abdominal aorta wall and iliac arteries. The mesenteric pattern is an of the renal arteries. Mild prominent, 10 mm proximal celiac trunk. No aneurysm in the abdominal aorta. PELVIC VISCERA: Status post resection of the prostate gland with of fluid-filled abnormality at the surgical site. OSSEOUS STRUCTURES: Blastic lesion at the vertebral body of T12. Status post the metallic hardware placement in the posterior spinous processes of L3-4. Marginal osteophyte formation and endplate sclerosis subchondral cyst formation decreased intervertebral disc height and vacuum phenomenon at L2-3. Grade 1 retrolisthesis L3-4. No acute fracture. Dextroconvex morphology apex at L2-3. Sclerotic marginated the lytic lesions in the femoral head/neck more conspicuous on the right femur. Sclerosis and the sacroiliac joints bilaterally. CT/CT abdomen pelvis wo IV con IMPRESSION: Concerning inflammatory versus infectious process involving the urinary bladder and the urothelium of the left urinary collecting system. Nonobstructing nephrolithiasis, right kidney. Bilateral renal cysts. Blastic lesion, T12. 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 Hepatomegaly. Atherosclerosis disease. Fleischner guidelines were followed. Electronically signed by: Hugo Ralph MD 08/04/2024 01:15 PM EDT
--- NOTE | 2024-08-04 10:37 | PC.NURSE ---
pt oral temp 100.1, rectal temp pending. tongue and mouth appear dry. pt says he has been unable to drink anything this morning bc no mobility due to lower leg numbness
--- NOTE | 2024-08-04 10:59 | PC.NURSE ---
Report received at this time. Taken over care at this time.
--- NOTE | 2024-08-04 11:08 | ECG_ITS ---
Test Reason : WEAKNESS Blood Pressure : */* mmHG Vent. Rate : 102 BPM Atrial Rate : 102 BPM P-R Int : 126 ms QRS Dur : 92 ms QT Int : 360 ms P-R-T Axes : * 37 33 degrees QTcB Int : 469 ms Sinus tachycardia Nonspecific ST and T wave abnormality Borderline ECG When compared with ECG of 04-Mar-2022 22:22, No significant change was found Referred By: Bettie Suarez Electronically Signed By: JERILYN VELA
[2024-08-04] MEDS: 0.9 % Sodium Chloride 1,000 ML 999 ML IV (11:24)
[2024-08-04] MEDS: Acetaminophen 1,000 MG/100 ML PIGGYBACK 400 MG IV (11:24)
[2024-08-04 11:26] LABS: MANUAL DIFF FLAG NO
[2024-08-04] MEDS: cefTRIAXone sodium 2 GM VIAL IVPUSH (11:27)
[2024-08-04 11:28] LABS: Basophils Percent Auto 0.3 % (0-2); Hematocrit 30.5 % (42.0-52.0); Hemoglobin 9.5 g/dl (14.0-18.0); Imm Gran Abs Auto 0.06 X10*3/uL (0.00-0.03); Imm Gran Pct Auto 0.5 % (0.0-0.4); Lymphocytes Absolute Auto 0.5 X10*3/uL (1.2-4.9); Lymphocytes Percent Auto 3.8 % (20-40); Mean Corpuscular HGB Conc 31.1 g/dl (31.0-36.0); Mean Corpuscular Hemoglobin 28.7 pg (27.0-33.0); Mean Corpuscular Volume 92.1 fL (80.0-98.0); Mean Platelet Volume 9.5 fL (9.4-12.4); Monocytes Percent Auto 8.1 % (2-11); Neutrophils Absolute Auto 10.4 x10*3/uL (2.0-8.3); Neutrophils Percent Auto 87.3 % (45-73); Platelet Count 166 X10*3/uL (160-400); Red Blood Count 3.31 X10*6/uL (4.60-5.80); Red Cell Distribution Width 14.1 % (11.0-16.0)
[2024-08-04] MEDS: Lactated Ringers 1,000 ML 999 ML IV (11:32)
--- NOTE | 2024-08-04 11:42 | ED.NEUROSD ---
HPI - Neuro Symptoms/Deficit General Chief Complaint: Neuro Symptoms/Deficit Stated Complaint: Lower extremity numbness per ems hx spine cancer Time Seen by Provider: 08/04/24 10:53 Source: patient, EMS and old records reviewed Mode of arrival: EMS Limitations: no limitations History of Present Illness ED Provider: ALISSON HPI Narrative: 74 yo male with PMH of prostate cancer on GnRH follows with [facility] recent bone scan shows mandibuar activity, anemia, Klebsiella UTI s ceftriaxone, CKD, PAD, HTN he comes in today with c/o feeling weak and his legs were tingling with R flank pain. He states he tried to get up but couldn't because his legs are so weak and he's tired. He also has dysuria. He has no b/b incontinence, no saddle anesthesia. He is not on blood thinners. He states he can feel his legs but both are very tired and weak. He has not had any recent falls. On arrival to the ED he has a fever of 104 but didn't know this at home. All symptoms started this AM Onset (ago): day(s) (this AM) Location: left leg and right leg History of same: Yes Severity: moderate Quality: weak Relieving factors: rest Exacerbating factors: other (walking) Context: gradual onset On Anticoagulants: No Associated symptoms: malaise and other (dysuria, weakness, tinglilng) Treatments Prior to Arrival: none Related Data Home Medications ?Medication ?Instructions ?Recorded ?Confirmed ferrous gluconate 324 mg (38 mg 1 tab PO QAM 03/04/22 05/19/24 iron) tablet Previous Rx's ?Medication ?Instructions ?Recorded sodium zirconium cyclosilicate 5 5 g PO .two times a week 05/19/24 gram oral powder packet (Lokelma) hyperkalemia #11 ea Allergies Allergy/AdvReac Type Severity Reaction Status Date / Time No Known Allergies Allergy Verified 08/04/24 10:34 [No Known Allergies*] Review of Systems Review of Systems: Constitutional : No Weight loss, pos Fever, pos Chills, ENT/Mouth : No Hearing loss, No Ear Pain, No Nasal Congestion, No Sinus Pain, No Hoarseness, No sore throat, No Rhinorrhea, No Swallowing Difficulty Cardiovascular : No Chest Pain, No SOB Respiratory : No Cough, No Dyspnea Gastrointestinal : No Nausea, No Vomiting, No Diarrhea, No abdominal Pain, No Hematochezia, No Melena Genitourinary : pos Dysuria, No Urinary Frequency, No Hematuria, No Urinary Incontinence, Musculoskeletal : positive CVA ttp Skin : No Skin Lesions, No rash Neuro : No Weakness, No Numbness, No Paresthesias, no loss of bowel or bladder incontinence, no saddle anesthesia All other systems reviewed and are negative PMFSH Past Medical History Attestation statement: The following information was validated with the patient. Source: old records reviewed Medical History CHF (congestive heart failure) Overweight Renal cyst Tobacco dependence Urinary incontinence Iron deficiency anemia Hx of radiation therapy Stenosis of lumbosacral spine Falls Hypertension Hypercholesteremia Kidney disease Macular degeneration Hematuria Urgency incontinence Prostate cancer Surgical History History of incision and drainage Spinal surgery in prior 3 months History of prostate surgery History of back surgery Family History Family History Other No family history of coronary artery disease Social History Social History Household Members: Spouse Housing: House Are you a primary respiratory care practitioner to a significant other at home: No Do you presently have visiting nurse or other home services: No Alcohol intake: former Patient Tobacco Use Status: Current someday Tobacco user Smoking Start Date: 06/18/61 Tobacco use type: Cigarette Cigarette Packs Per Day: 0.5 Cigarettes Per Day: 2 Years Smoked: 50 Smoked in Last 30 Days: Yes e-Cigarette/Vaping Use: Never Used Second Hand Smoke Exposure: No Use of substances other than those prescribed or required for medical reasons: No Advance Directives: Yes Advance Directives on File: Yes Advance Directives Date on File: 02/19/21 service: Yes Current occupational status: retired Physical Exam Vital Signs: Vital Signs: Last Vital Signs Temp 98.9 F 08/04/24 12:30 Pulse 102 H 08/04/24 12:30 Resp 20 08/04/24 12:30 BP 113/52 L 08/04/24 12:30 Pulse Ox 94 08/04/24 12:30 O2 Del Method Room Air 08/04/24 12:30 BMI result Body Mass Index 21.8 Appearance: Alert. Oriented X3. No acute distress. Eyes: Pupils equal, round and reactive to light. ENT: Pharynx dry MM Neck: Normal inspection. Neck supple. CVS: tachycardia heart rate and rhythm. Pulses normal. Respiratory: No respiratory distress. Breath sounds normal. Abdomen: Soft and nontender. R CVA ttp Skin: Skin warm and dry. pale skin color. Normal skin turgor. Extremities: No lower extremity edema. No calf ttp Neuro: Oriented X 3. No motor deficit. No sensory deficit. CN2-12 intact, SILT throughout both legs, he has no clonus, he has 5/5 plantar and dorsi but trying to raise legs he is weak symmetrically but can do it - it just requires sig effort. Medications Administered Discontinued Medications Generic Name Dose Route Start Last Admin Trade Name Freq PRN Reason Stop Dose Admin Ceftriaxone Sodium 2 gm 08/04/24 11:08 08/04/24 11:27 Ceftriaxone Sodium 2 Gm Vial IVPUSH 08/04/24 11:09 2 gm ONCE ONE Administration Sodium Chloride 1,000 mls @ 999 mls/hr 08/04/24 11:07 08/04/24 12:20 Ns IV 08/04/24 12:07 Infused .Q1H1M ONE Infusion Lactated Ringer's 1,000 mls @ 999 mls/hr 08/04/24 11:08 08/04/24 12:30 Lr IV 08/04/24 12:08 Infused .Q1H1M ONE Infusion Acetaminophen 1,000 mg in 100 mls @ 400 mls/hr 08/04/24 11:13 08/04/24 11:39 Ofirmev IV 08/04/24 11:27 Infused ONCE ONE Infusion Medical Decision Making Medical Decision Making [facility] Narrative: 74 yo male with PMH of prostate cancer on GnRH follows with Mace recent bone scan shows mandibuar activity, anemia, Klebsiella UTI s ceftriaxone, CKD, PAD, HTN now here with fatigue, weakness, leg weakness but no signs of cauda equina he has pain on R flank at this time given his history and prior UTI with presenting fever of 104 I have ordered IVF, sepsis alert, lactic acid, blood cultures, IV tylenol and empiric ceftriaxone given his prior susceptibilities. He will be admitted to the hospital given infectious concerns and prior bacteremia. Differential Diagnosis Differential Diagnoses: The differential diagnosis associated with the presentation includes UTI, infected stone, lyte abnormality, anemia, CRISTIANA, pyelo, pneumonia no signs of cauda equina could be worsening malignancy but he has no acute neuro findings suspect his weakness is due to active infection Admission/Observation Consideration of admission/observation: Escalation of care including admission/observation considered will admit for sepsis work up and concerns. Consult Healthcare Provider Management of the patient was discussed with: Hospitalist Lab Data MDM Lab Attestation statement: I reviewed the patient's lab results. 08/04/24 11:18 08/04/24 11:18 Labs: Lab Results 08/04/24 08/04/24 08/04/24 Range/Units 11:15 11:16 11:18 WBC 12.0 H (4.8-10.8) X10*3/uL RBC 3.31 L (4.60-5.80) X10*6/uL Hgb 9.5 L (14.0-18.0) g/dl Hct 30.5 L (42.0-52.0) % MCV 92.1 (80.0-98.0) fL MCH 28.7 (27.0-33.0) pg MCHC 31.1 (31.0-36.0) g/dl RDW 14.1 (11.0-16.0) % Plt Count 166 D (160-400) X10*3/uL MPV 9.5 (9.4-12.4) fL Immature Gran % (Auto) 0.5 H (0.0-0.4) % Neut % (Auto) 87.3 H (45-73) % Lymph % (Auto) 3.8 L (20-40) % White % (Auto) 8.1 (2-11) % Eos % (Auto) 0.0 (0-4) % Baso % (Auto) 0.3 (0-2) % Lymph # (Auto) 0.5 L (1.2-4.9) X10*3/uL White # (Auto) 1.0 (0.1-1.2) X10*3/uL Eos # (Auto) 0.0 (0.0-0.4) X10*3/uL Baso # (Auto) 0.0 (0.0-0.2) X10*3/uL Abs Immat Gran (auto) 0.06 H (0.00-0.03) X10*3/uL Absolute Neuts (auto) 10.4 H (2.0-8.3) x10*3/uL Absolute Nucleated RBC 0.000 (0.0-0.012) X10*3/uL Nucleated RBC % (auto) 0.0 (0.0-0.2) /100WBC Sodium 142 (135-145) mmol/L Potassium 4.4 (3.3-5.1) mmol/L Chloride 110 H (96-108) mmol/L Carbon Dioxide 24 (22-29) mmol/L Anion Gap 12 (12-20) BUN 33 H (9-16) mg/dL Creatinine 2.48 H (0.5-1.4) mg/dL Estim Creat Clear Calc 26.8 Estimated GFR 25 Random Glucose 132 H (60-115) mg/dL Lactic Acid 1.1 (0.5-2.0) mmol/L Calcium 9.0 (8.4-10.2) mg/dL Magnesium 2.5 (1.6-2.6) mg/dL Total Bilirubin 0.4 (0.0-1.0) mg/dL Direct Bilirubin 0.2 (0.0-0.5) mg/dL AST 37 (5-37) U/L ALT 9 (0-40) U/L Alkaline Phosphatase 55 (39-117) U/L Troponin I High Sens 32.3 (<3.5-35.0) ng/L C-Reactive Protein 28.36 H (< or = 0.50) mg/dL Total Protein 6.7 (6.5-8.0) g/dL Albumin 3.8 (3.5-5.0) g/dL Lipase 8 (8-78) U/L Procalcitonin 10.62 ng/mL Urine Color Urine Appearance Urine pH (5.0-9.0) Ur Specific Abbott (1.005-1.025) Urine Protein (Neg-Trace) mg/dL Urine Glucose (UA) (Negative) mg/dL Urine Ketones (Negative) mg/dL Urine Blood (Negative) Urine Nitrite (Negative) Ur Leukocyte Esterase (Negative) Urine RBC (0-2) /HPF Urine WBC (0-5) /HPF Ur Squamous Epith Cells (0-2) /HPF Urine Bacteria (None Seen) Hyaline Casts (0-2) /LPF Influenza Type A (PCR) NEGATIVE (Negative) Influenza Type B (PCR) NEGATIVE (Negative) RSV RNA Qual (PCR) NEGATIVE (Negative) SARS-CoV-2 RNA (RT-PCR) NEGATIVE (Negative) 08/04/24 Range/Units 12:01 WBC (4.8-10.8) X10*3/uL RBC (4.60-5.80) X10*6/uL Hgb (14.0-18.0) g/dl Hct (42.0-52.0) % MCV (80.0-98.0) fL MCH (27.0-33.0) pg MCHC (31.0-36.0) g/dl RDW (11.0-16.0) % Plt Count (160-400) X10*3/uL MPV (9.4-12.4) fL Immature Gran % (Auto) (0.0-0.4) % Neut % (Auto) (45-73) % Lymph % (Auto) (20-40) % White % (Auto) (2-11) % Eos % (Auto) (0-4) % Baso % (Auto) (0-2) % Lymph # (Auto) (1.2-4.9) X10*3/uL White # (Auto) (0.1-1.2) X10*3/uL Eos # (Auto) (0.0-0.4) X10*3/uL Baso # (Auto) (0.0-0.2) X10*3/uL Abs Immat Gran (auto) (0.00-0.03) X10*3/uL Absolute Neuts (auto) (2.0-8.3) x10*3/uL Absolute Nucleated RBC (0.0-0.012) X10*3/uL Nucleated RBC % (auto) (0.0-0.2) /100WBC Sodium (135-145) mmol/L Potassium (3.3-5.1) mmol/L Chloride (96-108) mmol/L Carbon Dioxide (22-29) mmol/L Anion Gap (12-20) BUN (9-16) mg/dL Creatinine (0.5-1.4) mg/dL Estim Creat Clear Calc Estimated GFR Random Glucose (60-115) mg/dL Lactic Acid (0.5-2.0) mmol/L Calcium (8.4-10.2) mg/dL Magnesium (1.6-2.6) mg/dL Total Bilirubin (0.0-1.0) mg/dL Direct Bilirubin (0.0-0.5) mg/dL AST (5-37) U/L ALT (0-40) U/L Alkaline Phosphatase (39-117) U/L Troponin I High Sens (<3.5-35.0) ng/L C-Reactive Protein (< or = 0.50) mg/dL Total Protein (6.5-8.0) g/dL Albumin (3.5-5.0) g/dL Lipase (8-78) U/L Procalcitonin ng/mL Urine Color Yellow Urine Appearance Turbid Urine pH 6.5 (5.0-9.0) Ur Specific Abbott 1.020 (1.005-1.025) Urine Protein 300 (3+) H (Neg-Trace) mg/dL Urine Glucose (UA) Negative (Negative) mg/dL Urine Ketones Trace (Negative) mg/dL Urine Blood Large (3+) H (Negative) Urine Nitrite Negative (Negative) Ur Leukocyte Esterase Large (3+) H (Negative) Urine RBC 11-20 H (0-2) /HPF Urine WBC >50 H (0-5) /HPF Ur Squamous Epith Cells 0-2 (0-2) /HPF Urine Bacteria None Seen (None Seen) Hyaline Casts 0-2 (0-2) /LPF Influenza Type A (PCR) (Negative) Influenza Type B (PCR) (Negative) RSV RNA Qual (PCR) (Negative) SARS-CoV-2 RNA (RT-PCR) (Negative) Independent Interpretation I performed an independent interpretation of an: EKG, Plain X-Ray (normal ) and CT Scan (no infected stone, bladder inflamed, ureter inflammed) Interpretation: Rate: 102 Rhythm: sinus tach [place]: normal Normal P waves. Normal SANTOS. Normal QRS complex. ST T wave : inverted t wave in V1, no STEPHANIE qTC: 469 prior studies: no acute ischemia The study has been interpreted contemporaneously by me. . Radiology Impression Discussion of test interpretation with radiology: I have reviewed the radiologist's reading. Independent Historian Clinical information obtained from an independent historian. History obtained from or confirmed by: EMS External Record Review External record reviewed: Inpatient record and Outpatient record Critical Care Time Critical Care Time Critical Care Time: Yes Total Critical Care Time: 45 Attestation: sepsis protocol, review of records, 2L of IVF resuscitation I attest to this time spent taking care of the patient Discharge Plan Discharge Clinical Impression: Acute kidney injury superimposed on chronic kidney disease, Acute UTI Fever Qualifiers: Fever type: unspecified Qualified Code(s): R50.9 - Fever, unspecified Patient Disposition: Admitted As Inpatient Print Language: Guine[place]
[2024-08-04 11:48] LABS: Lactic Acid 1.1 mmol/L (0.5-2.0)
[2024-08-04 11:56] LABS: Alanine Aminotransferase 9 U/L (0-40); Albumin Level 3.8 g/dL (3.5-5.0); Alkaline Phosphatase 55 U/L (39-117); Anion Gap 12 (12-20); Aspartate Amino Transferase 37 U/L (5-37); Bilirubin Direct 0.2 mg/dL (0.0-0.5); Bilirubin Total 0.4 mg/dL (0.0-1.0); Blood Urea Nitrogen 33 mg/dL (9-16); C Reactive Protein 28.36 mg/dL (< or = 0.50); Carbon Dioxide 24 mmol/L (22-29); Chloride 110 mmol/L (96-108); Creatinine Clr Calc Pharmacy 26.8; Estimated Glomerular Filt Rate 25; Glucose Random 132 mg/dL (60-115); Lipase 8 U/L (8-78); Magnesium 2.5 mg/dL (1.6-2.6); Potassium 4.4 mmol/L (3.3-5.1); Sodium 142 mmol/L (135-145); Total Protein 6.7 g/dL (6.5-8.0); Troponin-I High Sensitivity 32.3 ng/L (<3.5-35.0)
[2024-08-04 12:09] LABS: Appearance Urine Turbid; Color Urine Yellow; Glucose Urine UA Negative (Negative); Leukocyte Esterase Urine Large (3+) (Negative); Nitrite Urine Negative (Negative); PH 6.5 (5.0-9.0); UMIC TRIGGER UACC YES; Urine Blood Large (3+) (Negative); Urine Ketones Trace mg/dL (Negative); Urine Protein 300 (3+) mg/dL (Neg-Trace)
[2024-08-04 12:10] LABS: Procalcitonin 10.62 ng/mL
[2024-08-04 12:13] LABS: Influenza A PCR NEGATIVE (Negative); Influenza B PCR NEGATIVE (Negative); Resp Syncy Virus RNA Qual PCR NEGATIVE (Negative); SARS COV2 PCR INHOUSE NEGATIVE (Negative)
[2024-08-04 12:14] LABS: Bacteria Urine None Seen (None Seen); Hyaline Casts Urine 0-2 /LPF (0-2); Squamous Epithelial Cell Urine 0-2 /HPF (0-2); UACC Culture Trigger YES; WBC Urine >50 /HPF (0-5)
--- OUTSIDE RECORDS SUMMARY | 2024-08-04 13:15 | XMS_ITS ---
Author Organization Jose G Dickerson III, MD Address [address] [facility] [place] [address] Care Team Providers Care Costume Seamstress Name Role Phone Jose G Dickerson Primary Care Provider Allergies Allergen (clinical drug ingredient) Drug/Non Drug Allergy documented on EMR Reaction Allergy Type Onset Date Status No Known Drug Allergy Unknown Drug Allergy Active REASON FOR VISIT furuncle right sabianist, Prostate cancer, Hypertension, Compression fracture T11, Macular degeneration, Peripheral arterial disease Medications Medication SIG (Take, Route, Frequency, Duration) Notes Start Date End Date Status Cyanocobalamin 1000 MCG/ML 1 mL Injection 03/31/20 24 Active Xgeva 120 MG/1.7ML as directed Subcutan eous Once a month Active Ferrous Gluconate 324 (38 Fe) MG 1 tablet Orally daily 03/30/2024 Active Doxycycline Hyclate 100 MG 1 tablet Oral ly twice a day for 10 days 07/12/2024 07/22/2024 Active Social History Tobacco Use: Social History [...] cigarett e smoker ((1-9 cigs/day) Vital Signs Height 69 in 07/12/2024 Weight 169 lbs 07/12/2024 BMI 24.95 kg/m2 07/12/2024 Encounters Encounter Location Date Provider Diagnosis Jose G Dickerson III, MD [address] [place] [address] [address] [place], [place] [address] 07/12/2024 Jose G Dickerson Essential hypertensi on I10 ; Prostate cancer C61 ; Macular degeneration of both eyes, unspecified type H35.30 ; Stage 3 chronic kidney disease N18.3 ; Iron deficiency anemia, unspecified iron deficiency anemia type D50.9 ; 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 He iss asymptomatic. He says he feels like his usual self which is tired. He was not tachycardic. He will be observed carefully.. 07/12/2024 Prostate cancer (ICD-10 - C61) His PSA has fallen to From 0.25 to 0.13 and is now 0.12.. He is treated with Eligard. He was at one point taking Xtandi. He is currently asymptomatic and has gained weight. 07/12/2024 Macular degeneration of both eyes, unspecified type (ICD-10 - H35.30) He will continue to receive his bevacizumab injections from his medical secretary. 07/12/2024 Stage 3 chronic kidney disease (ICD-10 - N18.3) His BUN has dropped from 36-30 and his GFR has improved to 35. His creatinine is improved from 2.12-1.87. Current therapy was continued. 07/12/2024 Iron deficiency anemia, unspecified iron deficiency anemia type (ICD-10 - D50.9) His ferritin which was 15 is now 32. He will continue on the ferrous gluconate. His hematocrit has improved to 33%. 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 I will continue. We will begin receiving denosumab. 07/12/2024 Tobacco dependence (ICD-10 - F17.200) I have discussed with him all of the long-term consequences of smoking and he is well aware of them. I have offered to refer him to smoking cessation programs at the [facility] and he will consider this. 07/12/2024 Pernicious anemia (ICD-10 - D51.0) He received 1000 mcg of vitamin B12by intramuscular injection in the left armToday without difficulty. 07/12/2024 Furuncle (ICD-10 - L02.92) He will use warm compresses on the area and avoid squeezing it. He will take doxycycline for a week. He will call me at once if anything worsens. Plan Of Treatment Medication Medication Name Sig Start Date Stop Date Notes Cyanocobalamin 1000 MCG/ML 1 mL Injection 03/31/2024 Xgeva 120 MG/1.7ML as directed Subcutan eous Once a month Ferrous Gluconate 324 (38 Fe ) MG 1 tablet Orally daily 03/30/2024 Doxycycline Hyclate 100 MG 1 tablet Oral ly twice a day for 10 days 07/12/2024 07/22/2024 Next Appt Details Follow Up: 3 Weeks, Reason: ov Provider Name:Jose G Dickerson, 04/19/2025 02:00:00 PM, [address] [place] [address] [address] [facility], [place], [address], Progress Notes * MACI RAMOS PDOB:1949 (74 yo M)Acc No.[id number]:07/12/2024 Patient:?MACI RAMOS P Provider:?Jose G Dickerson MD :1950???Age:74 Y???Sex:Male Feng e:07/12/2024 Address:[address] [place] [address] [id number] Subjective: * Chief Complaints: * ???Furuncle right templePros yepez cancerHypertensionCompression fracture S57Zvrtllk degenerationPeripheral arterial disease * HPI: ???:? He was seen in the office a week ago for updating all of his medical issues and to receive his vitamin B12 injection.? He was noted to have an area of infected skin on his right sabianist with some severely cracked skin.? A culture was done which has shown only normal skin zander.? I have given him doxycycline to relieve the infection.? He does not have any fever or significant pain.? He will continue to come to the office on schedule. ?Telehealth?Location of provider rendering services:?{...} [address] [facility] [address] ?Location of patient:?address listed in demographics for today's visit ?Patient identification confirmed using:?Name, ?Telehealth method:?Telephone only. Patient not visible to care provider. ?Consent:?Patient verbally consented to treatment, Patient verbally consented to billing insurance company, Patient informed of any privacy concerns related to method of visit ?Total time spent with patient (mins)?15 * ROS:?General/Constitutional:?pain?only normal aches and pains.?Chills?denies.?Fatigue?admits.?Fever?denies.?ENT:?Decreased hearing?mild.?Respiratory:?Cough?non-productive.?Cardiovascular:?Chest pain with exertion?denies.?Dyspnea on exertion?denies.?Shortness of breath?with exertion.?Gastrointestinal:?Constipation?occasional.?Decreased appetite?denies.?Diarrhea?denies.?Heartburn?denies.?Nausea?denies.?Rectal bleeding?denies.?Vomiting?denies.?Hematology:?bruising?denies.?petechiae?denies.?Swollen glands?none have been noted.?Genitourinary:?Frequent urination?twice a night.?Musculoskeletal:?Muscle aches?denies.?Painful joints?denies.?Sciatica?denies.?Weakness?denies.?Skin:?Itching?denies.?Rash?denies.?Skin lesion(s)?denies.?Neurologic:?Difficulty speaking?denies.?Dizziness?denies.?Headache?denies.?Low back pain?that is chronic.?Psychiatric:?Depressed mood?which is mild.? * Medical History:? * Surgical History:?incision a nd drainage left lateral thigh abscess 2009excision draining scrotal sinus 2014cryoablation of the prostate 2015history of back surgery urgical drainage of scrotal abscess under anesthesia [facility] ataract Surgery, right eye 2023No history * Hospitalization/Major Diagno stic Procedure:?CKD, CHF and HTN osterior Fusion Lumbar spine L3- L4 rainage of scrotal abscess. [facility] 03/2022No history * Family History:?Father: dece [...] cigarette smoker ((1-9 cigs/day) ???He lives in [facility]. He is not a Mosque. He is and lives with his . He smokes 5 cigarettes per day. * Medications:?TakingXgeva 120 MG/1.7ML Solution as directed Subcutaneous Once a month Cyanocobalamin 1000 MCG/ML Solution 1 mL Injection Ferrous Gluconate 324 (38 Fe) MG Tablet 1 tablet Orally daily Medication List reviewed and reconciled with the patientTaking Xgeva 120 MG/1.7ML Solution as directed Subcutaneous Once a month Taking Cyanocobalamin 1000 MCG/ML Solution 1 mL Injection Taking Ferrous Gluconate 324 (38 Fe) MG Tablet 1 tablet Orally daily Medication List reviewed and reconciled with the patient * Allergies:?No Known Drug All ergyno[Allergies Verified] Objective: * Vitals:?Ht: 69, Wt:169, BMI: 24.95, Ht-cm: 175.26, Wt-k.66. * ???Past Orders: ???Lab:Gram stain (Order Feng e - 07/07/2024) (Collection Date & Time - 07/07/2024 11:13 AM) ? Value Reference Range ?Gram stain 1+ Gram-positive cocci - ???Lab:Routine Culture (Orde r Date - 07/07/2024) (Collection Date & Time - 07/07/2024 11:13 AM) ? Value Reference Range ?Routine Culture 1+ Mixed skin zander - Lab:Vitamin B12 * Collection Date 06/30/2024 03/22/2024 09/15/2023 Collection Time 08:19 AM 08:28 AM 01:52 PM Order Date 06/30/2024 03/22/2024 09/15/2023 Vitamin B12 797 (Ref Range: 200-900 pg/mL) 665 (Ref Range: 200-900 pg/mL) 619 (Ref Range: 200-900 pg/mL) * Lab:Complete Blood Count Aut o Diff * Collection Date 06/30/2024 03/22/2024 12/07/2023 Collection Time 08:19 AM 08:28 AM 08:07 AM Order Date 06/30/2024 03/22/2024 12/07/2023 White Blood Count 7.1 (Ref Range: 4.8-10.8 X10*3/uL) 6.8 (Ref Range: 4.8-10.8 X10*3/uL) 7.0 (Ref Range: 4.8-10.8 X10*3/uL) Red Blood Count 3.51?L (Ref Range: 4.60-5.80 X10*6/uL) 3.45?L (Ref Range: 4.60-5.80 X10*6/uL) 3.23?L (Ref Range: 4.60-5.80 X10*6/uL) Hemoglobin 9.9?L (Ref Range: 14.0-18.0 g/dl) 9.8?L (Ref Range: 14.0-18.0 g/dl) 9.2?L (Ref Range: 14.0-18.0 g/dl) Hematocrit 33.1?L (Ref Range: 42.0-52.0 %) 32.6?L (Ref Range: 42.0-52.0 %) 30.5?L (Ref Range: 42.0-52.0 %) Mean Corpuscular Volume 94.3 (Ref Range: 80.0-98.0 fL) 94.5 (Ref Range: 80.0-98.0 fL) 94.4 (Ref Range: 80.0-98.0 fL) Mean Corpuscular Hemoglobin 28.2 (Ref Range: 27.0-33.0 pg) 28.4 (Ref Range: 27.0-33.0 pg) 28.5 (Ref Range: 27.0-33.0 pg) Mean Corpuscular HGB Conc 29.9?L (Ref Range: 31.0-36.0 g/dl) 30.1?L (Ref Range: 31.0-36.0 g/dl) 30.2?L (Ref Range: 31.0-36.0 g/dl) Red Cell Distribution Width 13.7 (Ref Range: 11.0-16.0 %) 13.1 (Ref Range: 11.0-16.0 %) 14.1 (Ref Range: 11.0-16.0 %) Platelet Count 235 (Ref Range: 160-400 X10*3/uL) 240 (Ref Range: 160-400 X10*3/uL) 324 (Ref Range: 160-400 X10*3/uL) Mean Platelet Volume 9.5 (Ref Range: 9.4-12.4 fL) 9.3?L (Ref Range: 9.4-12.4 fL) 9.2?L (Ref Range: 9.4-12.4 fL) Neutrophils Percent Auto 72.0 (Ref Range: 45-73 %) 69.5 (Ref Range: 45-73 %) 72.2 (Ref Range: 45-73 %) Imm Gran Pct Auto 0.4 (Ref Range: 0.0-0.4 %) 0.4 (Ref Range: 0.0-0.4 %) 0.9?H (Ref Range: 0.0-0.4 %) Lymphocytes Percent Auto 13.3?L (Ref Range: 20-40 %) 14.9?L (Ref Range: 20-40 %) 11.9?L (Ref Range: 20-40 %) Monocytes Percent Auto 8.6 (Ref Range: 2-11 %) 8.9 (Ref Range: 2-11 %) 10.8 (Ref Range: 2-11 %) Eosinophils Percent Auto 4.9?H (Ref Range: 0-4 %) 5.6?H (Ref Range: 0-4 %) 3.6 (Ref Range: 0-4 %) Basophils Percent Auto 0.8 (Ref Range: 0-2 %) 0.7 (Ref Range: 0-2 %) 0.6 (Ref Range: 0-2 %) NRBC Pct Auto 0.0 (Ref Range: 0.0-0.2 /100WBC) 0.0 (Ref Range: 0.0-0.2 /100WBC) 0.0 (Ref Range: 0.0-0.2 /100WBC) Neutrophils Absolute Auto 5.1 (Ref Range: 2.0-8.3 x10*3/uL) 4.7 (Ref Range: 2.0-8.3 x10*3/uL) 5.0 (Ref Range: 2.0-8.3 x10*3/uL) Imm Gran Abs Auto 0.03 (Ref Range: 0.00-0.03 X10*3/uL) 0.03 (Ref Range: 0.00-0.03 X10*3/uL) 0.06?H (Ref Range: 0.00-0.03 X10*3/uL) Lymphocytes Absolute Auto 0.9?L (Ref Range: 1.2-4.9 X10*3/uL) 1.0?L (Ref Range: 1.2-4.9 X10*3/uL) 0.8?L (Ref Range: 1.2-4.9 X10*3/uL) Monocytes Absolute Auto 0.6 (Ref Range: 0.1-1.2 X10*3/uL) 0.6 (Ref Range: 0.1-1.2 X10*3/uL) 0.8 (Ref Range: 0.1-1.2 X10*3/uL) Eosinophils Absolute Auto 0.4 (Ref Range: 0.0-0.4 X10*3/uL) 0.4 (Ref Range: 0.0-0.4 X10*3/uL) 0.3 (Ref Range: 0.0-0.4 X10*3/uL) Basophils Absolute Auto 0.1 (Ref Range: 0.0-0.2 X10*3/uL) 0.1 (Ref Range: 0.0-0.2 X10*3/uL) 0.0 (Ref Range: 0.0-0.2 X10*3/uL) NRBC Abs Auto 0.000 (Ref Range: 0.0-0.012 X10*3/uL) 0.000 (Ref Range: 0.0-0.012 X10*3/uL) 0.000 (Ref Range: 0.0-0.012 X10*3/uL) * Lab:Comprehensive Met. Panel * Collection Date 06/30/2024 03/22/2024 12/07/2023 Collection Time 08:19 AM 08:28 AM 08:07 AM Order Date 06/30/2024 03/22/2024 12/07/2023 Sodium 142 (Ref Range: 135-145 mmol/L) 143 (Ref Range: 135-145 mmol/L) 141 (Ref Range: 135-145 mmol/L) Bilirubin Total 0.2 (Ref Range: 0.0-1.0 mg/dL) 0.2 (Ref Range: 0.0-1.0 mg/dL) 0.2 (Ref Range: 0.0-1.0 mg/dL) Aspartate Amino Transferase 18 (Ref Range: 5-37 U/L) 19 (Ref Range: 5-37 U/L) 11 (Ref Range: 5-37 U/L) Alanine Aminotransferase 10 (Ref Range: 0-40 U/L) 11 (Ref Range: 0-40 U/L) 10 (Ref Range: 0-40 U/L) Total Protein 7.0 (Ref Range: 6.5-8.0 g/dL) 6.7 (Ref Range: 6.5-8.0 g/dL) 6.9 (Ref Range: 6.5-8.0 g/dL) Albumin Level 3.8 (Ref Range: 3.5-5.0 g/dL) 3.9 (Ref Range: 3.5-5.0 g/dL) 3.8 (Ref Range: 3.5-5.0 g/dL) Alkaline Phosphatase 62 (Ref Range: 39-117 U/L) 69 (Ref Range: 39-117 U/L) 96 (Ref Range: 39-117 U/L) Potassium 5.1 (Ref Range: 3.3-5.1 mmol/L) 5.2?H (Ref Range: 3.3-5.1 mmol/L) 5.1 (Ref Range: 3.3-5.1 mmol/L) Chloride 111?H (Ref Range: 96-108 mmol/L) 110?H (Ref Range: 96-108 mmol/L) 111?H (Ref Range: 96-108 mmol/L) Carbon Dioxide 25 (Ref Range: 22-29 mmol/L) 28 (Ref Range: 22-29 mmol/L) 24 (Ref Range: 22-29 mmol/L) Anion Gap 11?L (Ref Range: 12-20) 10?L (Ref Range: 12-20) 11?L (Ref Range: 12-20) Blood Urea Nitrogen 30?H (Ref Range: 9-16 mg/dL) 36?H (Ref Range: 9-16 mg/dL) 29?H (Ref Range: 9-16 mg/dL) Creatinine 1.87?H (Ref Range: 0.5-1.4 mg/dL) 2.12?H (Ref Range: 0.5-1.4 mg/dL) 1.82?H (Ref Range: 0.5-1.4 mg/dL) Estimated Glomerular Filt Rate 35 31 36 Glucose Random 95 (Ref Range: 60-115 mg/dL) 98 (Ref Range: 60-115 mg/dL) 91 (Ref Range: 60-115 mg/dL) Calcium 8.6 (Ref Range: 8.4-10.2 mg/dL) 9.0 (Ref Range: 8.4-10.2 mg/dL) 9.3 (Ref Range: 8.4-10.2 mg/dL) * Lab:Ferritin * Collection Date 06/30/2024 03/22/2024 12/07/2023 Collection Time 08:19 AM 08:28 AM 08:07 AM Order Date 06/30/2024 03/22/2024 12/07/2023 Ferritin 32 (Ref Range: 20-250 ng/mL) 15?L (Ref Range: 20-250 ng/mL) 110 (Ref Range: 20-250 ng/mL) * Lab:Prostate Specific Antige n * Collection Date 06/30/2024 03/22/2024 12/07/2023 Collection Time 08:19 AM 08:28 AM 08:07 AM Order Date 06/30/2024 03/22/2024 12/07/2023 Prostate Specific Antigen 0.12 (Ref Range: <0.05-4.0 ng/mL) 0.13 (Ref Range: <0.05-4.0 ng/mL) 0.25 (Ref Range: <0.05-4.0 ng/mL) ???Imaging:XR mandible min 4V (Order Date - 04/16/2024) (Performed Date - 04/16/2024) Assessment: * Assessment: 1.?Prostate cancer - C61 (Pr imary)???Notes :His PSA has fallen to From 0.25 to 0.13 and is now 0.12.. He is treated with Eligard. He was at one point taking Xtandi. He is currently asymptomatic and has gained weight.???2.?Essential hypertension - I10???Notes :His blood pressure has been controlled.. He iss asymptomatic. He says he feels like his usual self which is tired. He was not tachycardic.? He will be observed carefully..???3.?Macular degeneration of both eyes, unspecified type - H35.30???Notes :He will continue to receive his bevacizumab injections from his medical secretary.???4.?Stage 3 chronic kidney disease - N18.3???Notes :His BUN has dropped from 36-30 and his GFR has improved to 35. His creatinine is improved from 2.12-1.87. Current therapy was continued.???5.?Iron deficiency anemia, unspecified iron deficiency anemia type - D50.9???Notes :His ferritin which was 15 is now 32. He will continue on the ferrous gluconate. 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 I will continue. We will begin receiving denosumab.???7.?Tobacco dependence - F17.200???Notes :I have discussed with him all of the long-term consequences of smoking and he is well aware of them. I have offered to refer him to smoking cessation programs at the [facility] and he will consider this.???8.?Pernicious anemia - D51.0???Notes :He received 1000 mcg of vitamin B12by intramuscular injection in the left armToday without difficulty.???9.?Furuncle - L02.92???Notes :He will use warm compresses on the area and avoid squeezing it.? He will take doxycycline for a week.? He will call me at once if anything worsens.??? Plan: * Treatment: 2.?Others? Continue Xgeva Solution, 120 MG/1.7ML, as directed, Subcutaneous, Once a month;?Continue Ferrous Gluconate Tablet, 324 (38 Fe) MG, 1 tablet, Orally, daily.?? * Procedure Codes:? * Preventive Medicine:? ??Counseling:?Smoking/Tobacco Use?Patient counseled on the dangers of tobacco use and urged to quit.?07/12/2024 ?Patient Lifestyle Goals?Patient wants to quit ?Treatment Goals?Set a quit date, Cut down by 1 cigarette a week ?Barriers?Stress, Social smoker ?Self-Management Plan?Make a plan to cut down number of cigarettes over time and set a date to work towards quitting * Follow Up:?3 Weeks (Reason: ov) * Images: * Sign off status: Completed true * Provider:?Jose G Dickerson MD Date:?07/02 Generated for Kati aguilera/Jovana/Natesmitting on:?08/04/2024 01:14 PM EDT History and Physical Notes * HPI (History of Present Illness) Category Sub-Category Detail Notes Telehealth Location of [facility] rendering services:: {...} [address] [place] [id number] Location of patient:: address listed in demographics for today's visit Patient identification confirmed using:: Name, Telehealth method:: Telephone only. Argelia ent not visible to care provider. Consent:: Patient verbally c onsented to treatment, Patient verbally consented to billing insurance company, Patient informed of any privacy concerns related to method of visit Total time spent with patient (mins): 15
--- OUTSIDE RECORDS SUMMARY | 2024-08-04 13:15 | XMS_ITS | Clinical Summary ---
Author Organization [facility] Address [address] [place] [address] Phone Care Team Providers Care Pear Picker Name Role Phone Jose G Dickerson MD Primary Care Provider [phone] Allergies No known active allergies Medications No [...] [facility] [place] [id number] [facility] Care Teams Pear Picker Relationship Specialty Start Date End Date Jose G Dickerson MD [address] [place] [address] [address] [place] PCP - General Medical Oncology 04/05/21
--- OUTSIDE RECORDS SUMMARY | 2024-08-04 13:15 | XMS_ITS | Encounter Summary ---
Author Organization [facility] Address [address] [place] [address] Phone Care Team Providers Care Talent Development Analyst Name Role Phone Jose G Dickerson MD Primary Care Provider [phone] Reason for Visit * Reason Comments Med Refill Encounter Details Date Type Department Care Team (Late st Contact Info) Description 02/11/2023 Refill [facility] [address] [place] [id number] Jon Ma MD Social History Tobacco Use [...] on filedocumented in this encounter Care Teams Talent Development Analyst Relationship Specialty Start Date End Date Jose G Dickerson MD [address] [place] [address] [address] [facility] - General Medical Oncology 04/05/21 documented as of this encounter
--- NOTE | 2024-08-04 13:32 | PHA.MEDREC ---
Addendum entered by Cabrera Joya 08/04/24 13:49: reviewed Original Note: Pharmacy Consult ? Medication Reconciliation Pharmacy has completed the medication reconciliation. Spoke to patient to confirm med list.
--- NOTE | 2024-08-04 14:21 | PM.IMHP ---
History of Present Illness Date of Service: 08/04/24 Attending physician on admission: Violetta Tinsley Chief Complaint: Leg weakness Pt is a 74-year-old male with a PMH significant for?CKD 3, prostate cancer with metastasis to bone s/p radiation, and chronic anemia who presents to the ED with?bilateral numbness, tingling, pain, and weakness in lower extremities since last night. Pt reports numbness and tingling most prominent in his upper thighs and pain in his lower back. Began last night and persisted this morning when he woke up and found he lacked the strength to get up out of bed. Pt chronically incontinent of urine, though complains of burning with urination for the past few days. Subjective fever and chills. Denies headache or acute vision changes. Has hx of chronic back pain but recently has not been problematic. Denies chest pain/pressure, palpitations. No nausea, vomiting, abdominal pain. Denies shortness or breath or difficulty breathing. In the ED pt was febrile up to 104.1, tachycardic up to 105, tachypneic up to 24, and soft BP as low as 104/50. Labs were significant for leukocytosis of 12.0, creatinine 2.48 (elevated from 1.87 on 06/30/2024), CRP 28.36, and procalcitonin 10.62. UA grossly infected. Tested negative for flu, COVID, RSV. CXR showed no acute airway disease.CT?of abdomen and pelvis concerning for inflammatory vs infectious process involving urinary bladder and urothelium of left urinary collecting system. Also showing blastic lesion of T12 and nonobstructing nephrolithiasis of right kidney. EKG demonstrated sinus tachycardia of 102 without evidence of significant ST elevations or depressions. Pt was treated with IVF, acetaminophen, and ceftriaxone. Pt will be admitted to the hospital for treatment and further evaluation of CRISTIANA in the setting of acute UTI with sepsis. Review of Systems Review of Systems: Negative except for that which is stated in the HPI. [facility] Medical History CHF (congestive heart failure) Overweight Renal cyst Tobacco dependence Urinary incontinence Iron deficiency anemia Hx of radiation therapy Stenosis of lumbosacral spine Falls Hypertension Hypercholesteremia Kidney disease Macular degeneration Hematuria Urgency incontinence Prostate cancer Family History Other No family history of coronary artery disease Surgical History History of incision and drainage Spinal surgery in prior 3 months History of prostate surgery History of back surgery Social History Household Members: Spouse Housing: House Are you a primary daycare director to a significant other at home: No Do you presently have visiting nurse or other home services: No Alcohol intake: former Patient Tobacco Use Status: Current someday Tobacco user Smoking Start Date: 06/18/61 Tobacco use type: Cigarette Cigarette Packs Per Day: 0.5 Cigarettes Per Day: 2 Years Smoked: 50 Smoked in Last 30 Days: Yes e-Cigarette/Vaping Use: Never Used Second Hand Smoke Exposure: No Use of substances other than those prescribed or required for medical reasons: No Advance Directives: Yes Advance Directives on File: Yes Advance Directives Date on File: 02/19/21 service: Yes Current occupational status: retired [employer] Allergies Allergy/AdvReac Type Severity Reaction Status Date / Time No Known Allergies Allergy Verified 08/04/24 10:34 [No Known Allergies*] Home Medications ?Medication ?Instructions ?Recorded ?Confirmed ?Last Taken ?Type ferrous gluconate 324 mg (38 mg 1 tab PO DAILY 03/04/22 08/04/24 08/03/24 History iron) tablet acetaminophen 500 mg tablet 1,000 mg PO TID PRN Fever Or Pain 08/04/24 08/04/24 08/03/24 History Physical Exam Vital Signs and Narrative: Vital Signs: Last Vital Signs Temp 98.9 F 08/04/24 13:00 Pulse 100 08/04/24 13:00 Resp 22 H 08/04/24 13:00 BP 113/51 L 08/04/24 13:00 Pulse Ox 94 08/04/24 13:00 O2 Del Method Room Air 08/04/24 13:00 BMI result Body Mass Index 21.8 General: AOx3, looks uncomfortable. In no acute distress Resp: CTA bilaterally CVS: S1, S2, RRR GI: +BS, NT, no distention Skin: Warm, dry Neuro: Cranial nerves II-XII grossly intact bilaterally. Motor grossly intact bilaterally Extremities: No edema Psych: Appropriate affect Results Labs 08/04/24 11:18 08/04/24 11:18 Labs: Laboratory Results - last 24 hr 08/04/24 08/04/24 08/04/24 11:15 11:16 11:18 MCV 92.1 MCH 28.7 MCHC 31.1 RDW 14.1 Plt Count 166 D MPV 9.5 Immature Gran % (Auto) 0.5 H Neut % (Auto) 87.3 H Lymph % (Auto) 3.8 L [place] % (Auto) 8.1 Eos % (Auto) 0.0 Baso % (Auto) 0.3 Lymph # (Auto) 0.5 L [place] # (Auto) 1.0 Eos # (Auto) 0.0 Baso # (Auto) 0.0 Abs Immat Gran (auto) 0.06 H Absolute Neuts (auto) 10.4 H Absolute Nucleated RBC 0.000 Nucleated RBC % (auto) 0.0 Anion Gap 12 Estim Creat Clear Calc 26.8 Estimated GFR 25 Random Glucose 132 H Lactic Acid 1.1 Calcium 9.0 Magnesium 2.5 Total Bilirubin 0.4 Direct Bilirubin 0.2 AST 37 ALT 9 Alkaline Phosphatase 55 C-Reactive Protein 28.36 H Total Protein 6.7 Albumin 3.8 Lipase 8 Procalcitonin 10.62 Urine Color Urine Appearance Urine pH Ur Specific Nunez Urine Protein Urine Glucose (UA) Urine Ketones Urine Blood Urine Nitrite Ur Leukocyte Esterase Urine RBC Urine WBC Ur Squamous Epith Cells Urine Bacteria Hyaline Casts Influenza Type A (PCR) NEGATIVE Influenza Type B (PCR) NEGATIVE RSV RNA Qual (PCR) NEGATIVE SARS-CoV-2 RNA (RT-PCR) NEGATIVE 08/04/24 12:01 MCV MCH MCHC RDW Plt Count MPV Immature Gran % (Auto) Neut % (Auto) Lymph % (Auto) [place] % (Auto) Eos % (Auto) Baso % (Auto) Lymph # (Auto) [place] # (Auto) Eos # (Auto) Baso # (Auto) Abs Immat Gran (auto) Absolute Neuts (auto) Absolute Nucleated RBC Nucleated RBC % (auto) Anion Gap Estim Creat Clear Calc Estimated GFR Random Glucose Lactic Acid Calcium Magnesium Total Bilirubin Direct Bilirubin AST ALT Alkaline Phosphatase C-Reactive Protein Total Protein Albumin Lipase Procalcitonin Urine Color Yellow Urine Appearance Turbid Urine pH 6.5 Ur Specific Nunez 1.020 Urine Protein 300 (3+) H Urine Glucose (UA) Negative Urine Ketones Trace Urine Blood Large (3+) H Urine Nitrite Negative Ur Leukocyte Esterase Large (3+) H Urine RBC 11-20 H Urine WBC >50 H Ur Squamous Epith Cells 0-2 Urine Bacteria None Seen Hyaline Casts 0-2 Influenza Type A (PCR) Influenza Type B (PCR) RSV RNA Qual (PCR) SARS-CoV-2 RNA (RT-PCR) Imaging Radiologist's Impressions: Impressions Chest X-Ray 08/04/24 11:53 IMPRESSION: No acute airspace disease. Electronically signed by: Hugo Ralph MD 08/04/2024 12:12 PM EDT RP Abdomen/Pelvis CT 08/04/24 12:42 IMPRESSION: Concerning inflammatory versus infectious process involving the urinary bladder and the urothelium of the left urinary collecting system. Nonobstructing nephrolithiasis, right kidney. Bilateral renal cysts. Blastic lesion, T12. 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 Hepatomegaly. Atherosclerosis disease. Fleischner guidelines were followed. Electronically signed by: Hugo Ralph MD 08/04/2024 01:15 PM EDT RP Assessment and Plan (1) Acute UTI: Status: Acute (2) Acute kidney injury superimposed on chronic kidney disease: Status: Acute Plan Pt is a 74-year-old male with a PMH significant for?CKD 3, prostate cancer with metastasis to bone s/p radiation, and chronic anemia who presents to the ED with?bilateral numbness, tingling, pain, and weakness in lower extremities since last night. Pt will be admitted to the hospital for treatment and further evaluation of CRISTIANA in the setting of acute UTI with sepsis. Acute UTI with sepsis Pt with dysuria, UA+ Meets sepsis criteria with fever, tachycardia, tachypnea, and leukocytosis; lactic acid WNL at 1.1 Pt received IVF and started on broad-spectrum antibiotics in the ED Will treat with ceftriaxone 1g IV, started 08/04/2024 Follow urine cultures CRISTIANA on CKD 3 Creatinine 2.48 at time of presentation, elevated from 1.87 on 06/30/2024 Likely secondary to reduced p.o. intake in the setting of above Pt received 2 L IVF in the ED Will place on maintenance fluids for now Follow creatinine Lower back pain with numbness and tingling in lower extremities Reports sudden onset last night CT showing T12 blastic lesion Pt with known T12 metastasis treated with radiation Will get MRI of thoracic spine for further evaluation for new metastasis Consider Oncology consult pending MRI results, follows with Dr. [place] PT consult Chronic anemia Stable, at baseline Continue iron supplementation Full Code Attending:?Dr. Ro DVT Prophylaxis: Lovenox Pt will require a hospitalization of at least two nights for treatment of?CRISTIANA on CKD in the setting of acute UTI with sepsis. Pt will require hospital level care for administration of IVF, IV antibiotics, and close monitoring of labs. Quality Stroke Does the patient have a stroke diagnosis?: No VTE Prior VTE?: No VTE Risk Level:: Medical - moderate - high VTE Device Contraindication: Treatment Not Indicated VTE Drug Contraindication: N/A - Med Ordered
[2024-08-04] MEDS: Ferrous Sulfate 324 MG TABLET.DR PO (16:10)
[2024-08-04] MEDS: Lactated Ringers 1,000 ML 80 ML IVCONT (16:12)
[2024-08-04] MEDS: Enoxaparin Sodium 30 MG/0.3 ML SYRINGE SUBCUT (16:12)
[2024-08-04] MEDS: 0.9 % Sodium Chloride Flush 3 ML SYRINGE IVFLUSH (16:18)
[2024-08-04] MEDS: gadobutroL 7.5 ML VIAL IVPUSH (17:46)
--- NOTE | 2024-08-04 19:58 | MHC.EDTECH ---
This pct assumed care of Patient at 1900 ,vitals taken ,Patient was inconient of urine ,care given ,[place] cath Placed ,Patient was reposition and boosted up in bed ,All safety measure in Place .Patient belonings list done .
[2024-08-04] MEDS: Acetaminophen 325 MG TABLET 650 MG PO (20:30)
--- NOTE | 2024-08-04 21:50 | MHC.EDTECH ---
Patient removed [place] cath ,incontinent care given ,Patient drank 240 ml gingerale .Pt was moved to hospital bed for comfort .
--- NOTE | 2024-08-04 22:52 | PC.NURSE ---
Report given to LUIS Ovalles.
--- NOTE | 2024-08-04 23:49 | MHC.EDTECH ---
mid night rounding done ,vitals taken ,Patient sleeping ,breaths are even and unlabored ,no apparent distress noted ,Plan of care continue .
[2024-08-05] MEDS: oxyCODONE HCl Immed Release 5 MG TABLET PO ×3 (01:45→20:40)
--- NOTE | 2024-08-05 04:12 | PC.NURSE ---
Patient reports burning sensation with urination, Dr. Antunez informed.
[2024-08-05] MEDS: Phenazopyridine HCL 200 MG TABLET PO (04:15)
--- NOTE | 2024-08-05 04:17 | PC.NURSE ---
Patient medicated per JUL for burning pain with urination.
[2024-08-05 04:45] VITALS: BP 107/46; PULSE 109; RESP 17; TEMP 37.2; O2SAT 92
--- NOTE | 2024-08-05 04:55 | MHC.EDTECH ---
pt o2 dropped to 88% had pt cough and deep breathe as well as repositioned pt with little to no change. RN made aware of pt o2 sat and was instructed to place the pt on 1L o2 via NC. Pt is now resting at 93%.
--- NOTE | 2024-08-05 05:06 | MHC.EDTECH ---
late entry: this tech assumed care of this pt at 1103
[2024-08-05 08:00] VITALS: BP 123/60; PULSE 94; RESP 18; TEMP 36.8; O2SAT 98
[2024-08-05 08:46] LABS: Hematocrit 27.9 % (42.0-52.0); Hemoglobin 8.4 g/dl (14.0-18.0); Mean Corpuscular HGB Conc 30.1 g/dl (31.0-36.0); Mean Corpuscular Hemoglobin 28.2 pg (27.0-33.0); Mean Corpuscular Volume 93.6 fL (80.0-98.0); Mean Platelet Volume 9.8 fL (9.4-12.4); Platelet Count 147 X10*3/uL (160-400); Red Blood Count 2.98 X10*6/uL (4.60-5.80); Red Cell Distribution Width 14.4 % (11.0-16.0); White Blood Count 9.6 X10*3/uL (4.8-10.8)
[2024-08-05 09:01] LABS: Anion Gap 11 (12-20); Blood Urea Nitrogen 39 mg/dL (9-16); Carbon Dioxide 23 mmol/L (22-29); Chloride 110 mmol/L (96-108); Creatinine Clr Calc Pharmacy 25.6; Estimated Glomerular Filt Rate 24; Glucose Random 126 mg/dL (60-115); Potassium 4.3 mmol/L (3.3-5.1); Sodium 140 mmol/L (135-145)
[2024-08-05] MEDS: 0.9 % Sodium Chloride Flush 3 ML SYRINGE IVFLUSH ×2 (09:05→15:41)
[2024-08-05] MEDS: Ferrous Sulfate 324 MG TABLET.DR PO (09:05)
[2024-08-05 09:21] VITALS: BMI 22.2
[2024-08-05 10:03] VITALS: BP 123/60; PULSE 94; O2SAT 98
--- NOTE | 2024-08-05 11:02 | P.CNHO_ITS ---
Subjective - Subjective Chief complaint: Consult for: Prostate cancer bone marrow, ?cord compression. Patient: known to practice within the last 3 years Consult date: 08/05/24 Requesting Physician: Jose G Dickerson MD Primary Care Provider: Jose G Dickerson MD Family Provider: Jose G Dickerson MD Medical Summary: DIAGNOSIS: PROSTATE CARCINOMA WITH BONE METASTASES. CONCERN FOR CORD COMPRESSION. Edge Finisher Utilized?: No - Setswana Speaking HPI - Consult Narrative Reason for consult: Consult for: Prostate cancer with bone metastases. Narrative: Keshav Ramos is a 74 year old gentleman with a PMH significant for?CKD 3, prostate cancer with metastasis to bone s/p radiation, and chronic anemia who presents to the ED with?bilateral numbness, tingling, pain, and weakness in lower extremities since last night. Pt reports numbness and tingling most prominent in his upper thighs and pain in his lower back. Pain started last night and persisted this morning when he woke up and found he lacked the strength to get up out of bed. Pt is chronically incontinent of urine, though complains of burning with urination for the past few days. Subjective fever and chills. Denies headache or acute vision changes. Has hx of chronic back pain but recently has not been problematic. Denies chest pain/pressure, palpitations. Denies shortness or breath or difficulty breathing. No nausea, vomiting, abdominal pain. In the ED pt was febrile up to 104.1, tachycardic up to 105, tachypneic up to 24, and soft BP as low as 104/50. Labs were significant for leukocytosis of 12.0, creatinine 2.48 (elevated from 1.87 on 06/30/2024), CRP 28.36, and procalcitonin 10.62. UA grossly infected. Tested negative for flu, COVID, RSV. CXR showed no acute airway disease. CT?of abdomen and pelvis concerning for inflammatory vs infectious process involving urinary bladder and urothelium of left urinary collecting system. Also showing blastic lesion of T12 and nonobstructing nephrolithiasis of right kidney. EKG demonstrated sinus tachycardia of 102 without evidence of significant ST elevations or depressions. Pt was treated with IVF, acetaminophen, and ceftriaxone. Pt will be admitted to the hospital for treatment and further evaluation of CRISTIANA in the setting of acute UTI with sepsis. 2 [facility] Medical History:) Prostate cancer: Treatment: 06/16/2012: Gold seeds inserted. Had definitive radiation therapy for 8 weeks at the [facility]. 02/13/2015. Cryoablation for recurrence. Has been on intermittent hormonal replacement therapy with Lupron. Has been on denosumab, last received in May. On hold due to concern for osteonecrosis of the jaw. Radiation therapy to the T12 area, in 12/24. CHF (congestive heart failure) Overweight Renal cyst Tobacco dependence Urinary incontinence Iron deficiency anemia Hx of radiation therapy Stenosis of lumbosacral spine Falls Hypertension Hypercholesteremia Kidney disease Macular degeneration Hematuria Urgency incontinence Family History:) Other No family history of coronary artery disease Review of Systems Complains of easy fatigability. No fever chills or night sweats. Appetite has gone down. Weight has gone down. No headache no dizziness. No chest pain or trouble breathing. No abdominal pain nausea vomiting heartburn indigestion. Bowels are constipated. No gross blood in the stools. Complained of back pain and lower extremity weakness. Numbness and tingling. Negative except for the above. Review of Systems - Constitutional Reports no additional constitutional complaints, Reports lack of energy, Reports weight loss - Eyes Reports no additional eye complaints - ENT Reports no additional ear, nose, mouth, and throat complaints - Cardiovascular Reports no additional cardiovascular complaints - Respiratory Reports no additional respiratory complaints - Gastrointestinal Reports no additional gastrointestinal complaints - Genitourinary Genitourinary: Reports no additional male genitourinary complaints - Musculoskeletal Reports no additional musculoskeletal complaints - Integumentary/Breasts Skin/Breast: Reports no additional skin complaints - Neurologic Reports no additional neurologic complaints, Reports tingling, Reports paresthesias, Reports weakness - Psychiatric Reports no additional psychiatric complaints - Endocrine Reports no additional endocrine complaints - Hematologic/Lymphatic Reports no additional hematologic/lymphatic complaints - Allergic/Immunologic Reports no additional allergic/immunologic complaints [facility] Medical History: Medical History (Last Reviewed 08/05/24 @ 10:06 by Meera Deluna PT) CHF (congestive heart failure) Falls Hematuria Hx of radiation therapy Hypercholesteremia Hypertension Iron deficiency anemia Kidney disease Macular degeneration Overweight Prostate cancer Renal cyst Stenosis of lumbosacral spine Tobacco dependence Urgency incontinence Urinary incontinence Family History: Family History (Last Reviewed 08/04/24 @ 15:49 by KAYLA Santiago) Other No family history of coronary artery disease Surgical History: Surgical History (Last Reviewed 08/05/24 @ 10:06 by Meera Deluna PT) History of back surgery History of incision and drainage History of prostate surgery Spinal surgery in prior 3 months Social History: Social History (Last Reviewed 08/04/24 @ 15:49 by KAYLA Snatiago) Living Situation History: Household Members: Spouse Housing: House Are you a primary direct care counselor to a significant other at home: No Do you presently have visiting nurse or other home services: No Tobacco History: Patient Tobacco Use Status: Current everyday Tobacco Tobacco use type: Cigarette Cigarette Packs Per Day: 0.5 Years Smoked: 60 e-Cigarette/Vaping Use: Never Used Second Hand Smoke Exposure: No Advance Directives: Advance Directives Date on File: 02/19/21 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: 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: Yes Current occupational status: retired Home Medications and Allergies Current Medications: Current Medications Acetaminophen (Acetaminophen 325 Mg Tablet) 650 mg PO Q6H PRN PRN Reason: Pain, Mild 1-3,fever,headache Last Admin: 08/04/24 20:30 Dose: 650 mg Calcium Carbonate (Calcium Carbonate 750 Mg Tab.Chew) 750 mg PO Q4H PRN PRN Reason: Heartburn Ceftriaxone Sodium (Ceftriaxone Sodium 1 Gm Vial) 1 gm IVPUSH Q24H [facility]EL[facility] Enoxaparin Sodium (Enoxaparin Sodium 30 Mg/0.3 Ml Syringe) 30 mg SUBCUT Q24H [facility] Last Admin: 08/04/24 16:12 Dose: 30 mg Ferrous Sulfate (Ferrous Sulfate 324 Mg Tablet.Dr) 324 mg PO DAILY [facility] Last Admin: 08/05/24 09:05 Dose: 324 mg Magnesium Hydroxide (Milk Of Magnesia 30 Ml Oral.Susp) 30 ml PO DAILY PRN PRN Reason: Constipation Melatonin (Melatonin 3 Mg Tablet) 6 mg PO BEDTIME PRN PRN Reason: Insomnia Morphine Sulfate (Morphine Sulfate 4 Mg/Ml Cartridge) 4 mg IVPUSH Q4H PRN; Protocol PRN Reason: Pain, Severe (Pain Scale 7-10) Ondansetron HCl (Ondansetron Hcl 4 Mg/2 Ml Vial) 4 mg IVPUSH Q8H PRN PRN Reason: Nausea and Vomiting Oxycodone HCl (Oxycodone Hcl Immed Release 5 Mg Tablet) 5 mg PO Q4H PRN PRN Reason: Pain, Moderate(Pain Scale 4-6) Last Admin: 08/05/24 01:45 Dose: 5 mg Sodium Chloride (0.9 % Sodium Chloride Flush 3 Ml Syringe) 3 ml IVFLUSH QSHIFT [facility] Last Admin: 08/05/24 09:05 Dose: 3 ml Home Medications ?Medication ?Instructions ?Recorded ?Confirmed ?Type ferrous gluconate 324 mg (38 mg 1 tab PO DAILY 03/04/22 08/04/24 History iron) tablet acetaminophen 500 mg tablet 1,000 mg PO TID PRN Fever Or Pain 08/04/24 08/04/24 History Allergies Allergy/AdvReac Type Severity Reaction Status Date / Time No Known Allergies Allergy Verified 08/04/24 10:34 [No Known Allergies*] Physical Exam Vital signs: Vital Signs Temp 98.2 F 08/05/24 08:00 Pulse 94 08/05/24 10:03 Resp 18 08/05/24 08:00 BP 123/60 08/05/24 10:03 Pulse Ox 98 08/05/24 10:03 O2 Del Method Nasal Cannula 08/05/24 08:00 O2 Flow Rate 1 08/05/24 08:00 Intake & Output 08/04/24 08/05/24 08/05/24 18:59 06:59 18:59 Intake Total 2100 / 3340 1240 / 3340 Balance 2100 / 3340 1240 / 3340 Intake: Intake, Oral Amount 240 / 240 Intake, IV Amount 2100 / 3100 1000 / 3100 0.9 % Sodium Chloride 1,000 ml 1000 / 1000 @ 999 mls/hr IV .Q1H1M ONE Rx#: [id number] Acetaminophen 1,000 mg In 100 100 / 100 ml @ 400 mls/hr IV ONCE ONE Rx# :[id number] Lactated Ringers 1,000 ml @ 999 1000 / 1000 mls/hr IV .Q1H1M ONE Rx#: [id number] Lactated Ringers 1,000 ml @ 80 1000 / 1000 mls/hr IVCONT .[id number] FELISA Rx#: [id number] Other: Number of Incontinent Voids 3 Last Bowel Movement 08/02/24 Weight 74.843 kg 76.5 kg [place] Weight in Grams 34827 Weight 76.5 kg Hem/Onc Consult Result - Labs CBC & Chem 7: 08/05/24 08:22 08/06/24 06:14 Labs: Short CBC 08/04/24 08/05/24 Range/Units 11:18 08:22 WBC 12.0 H 9.6 (4.8-10.8) X10*3/uL Hgb 9.5 L 8.4 L (14.0-18.0) g/dl Hct 30.5 L 27.9 L (42.0-52.0) % Plt Count 166 D 147 L (160-400) X10*3/uL BMP 08/04/24 08/05/24 11:18 08:22 Sodium 142 140 Potassium 4.4 4.3 Chloride 110 H 110 H Carbon Dioxide 24 23 BUN 33 H 39 H Creatinine 2.48 H 2.59 H Calcium 9.0 8.0 L D Liver Function 08/04/24 Range/Units 11:18 Total Bilirubin 0.4 (0.0-1.0) mg/dL Direct Bilirubin 0.2 (0.0-0.5) mg/dL AST 37 (5-37) U/L ALT 9 (0-40) U/L Alkaline Phosphatase 55 (39-117) U/L Albumin 3.8 (3.5-5.0) g/dL Urine 08/04/24 Range/Units 12:01 Urine Color Yellow Urine Appearance Turbid Urine pH 6.5 (5.0-9.0) Ur Specific [place] 1.020 (1.005-1.025) Urine Protein 300 (3+) H (Neg-Trace) mg/dL Urine Glucose (UA) Negative (Negative) mg/dL Assessment and Plan Patient Active problem list reviewed?: Yes (1) Prostate cancer metastatic to bone Status: Acute Assessment and plan: 74-year-old gentleman, with the diagnosis of prostate carcinoma, initially made in 2011. He underwent curative intent radiation therapy receiving a total dose of 75.6 Gy over 42 fractions, final does on 09/14/2012. Later developed a local recurrence within the prostate, status post cryoablation procedure in 2014. He has been on intermittent ADT with most recent Eligard injection couple days ago, prior to that in the fall of last year. He was diagnosed with bone metastases back in March. CT chest abdomen pelvis from 11/20/2022: No acute abnormality in the chest. A 2.5 cm focal sclerosis within T12 vertebral body. This may represent a focal metastasis from the prostate cancer. There are ill-defined heterogenous areas of sclerosis in the right greater than left femoral heads His back and leg pain could be due to prior degenerated changes more to the level of L3/L4 where he had prior surgery. However in view of the close proximity of his T12 lesion, it is possible it is a referred type pain. PSA from 02/03: 0.17. From November: 0.31. Previously, 0.18. 06/09 : 0.20. Previously 0.19. Prior to that: 0.25. He has had back pain for awhile now. I offered to proceed with a bone scan to re evaluate. Also, offered to send him to pain management. He told me that his was at rehab, and he would like to get her settled before proceeding with any further testing. He was referred to pain management. They offered an implant however he decided not to proceed with that. He had a bone scan on 02/23. This was read on 03/16 and revealed: 1. 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 2. Persistent stable asymmetric increased tracer activity projecting in the region of the right-sided face consistent with stable disease. 3. Intensity of tracer activity at T12 vertebral body has decreased, consistent with likely interval healing. 4. No other significant interval change. X-ray of the mandible from 04/18 revealed: No obvious bone lesion in the region of the right mandibular angle. Consider further evaluation with CT. PSA: 0.14. His denosumab was put on hold. He now presents with lower extremity weakness numbness and tingling. He has chronic urinary incontinence. Concern was for cord compression. Does have a history of T12 lesion. He had undergone radiation therapy for that in the past. MRI of T-spine was done on 08/04 which revealed: There is multilevel degenerative disc disease. The thoracic cord is unremarkable. No significant narrowing of the spinal canal is identified. Heterogeneous signal in the T12 vertebral body suspicious for metastatic disease. There is no evidence of epidural extension and no other suspicious bony lesions are seen. CAT scan of the abdomen pelvis from 08/04 revealed: Concerning inflammatory versus infectious process involving the urinary bladder and the urothelium of the left urinary collecting system. Nonobstructing nephrolithiasis, right kidney. Bilateral renal cysts. Blastic lesion, T12. 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 Hepatomegaly. Atherosclerosis disease. His kidney function is elevated. Concern is CRISTIANA, on CKD 3. Creatinine 2.48 at time of presentation, elevated from 1.87 on 06/30/2024. Likely secondary to reduced p.o. intake in the setting of above. Pt received 2 L IVF in the ED. He was placed on maintenance fluids. Also noted to have a UTI/urosepsis. He is being treated with ceftriaxone. Fortunately there is no evidence of cord compression. PLAN: Will check PSA: 0.30. Will check from Dr. Vegas , there is room for more radiation for pain control. Continue supportive care as you are doing. Will get physical therapy consult. He may need a stay at rehab in view of his lower extremity weakness. Thank you for the consult, I will follow along with you. CC: - Time Spent With Patient Time Spent with Patient (in minutes): 30
[2024-08-05] MEDS: cefTRIAXone sodium 1 GM VIAL IVPUSH (12:09)
[2024-08-05 13:02] LABS: Influenza A PCR NEGATIVE (Negative); Influenza B PCR NEGATIVE (Negative); Resp Syncy Virus RNA Qual PCR NEGATIVE (Negative); SARS COV2 PCR INHOUSE NEGATIVE (Negative)
--- NOTE | 2024-08-05 14:15 | HO.PM.IMPN ---
Subjective Subjective Date of Service: 08/05/24 Interval History: last fever 100.5 @ 19:57 LLE sensation decreased, bilateral leg weakness back pain Review of Systems Review of Systems: Yes all other systems are reviewed and are negative Physical Exam Vital Signs: Vital Signs: Last Vital Signs Temp 98.2 F 08/05/24 08:00 Pulse 94 08/05/24 10:03 Resp 18 08/05/24 08:00 BP 123/60 08/05/24 10:03 Pulse Ox 98 08/05/24 10:03 O2 Del Method Nasal Cannula 08/05/24 08:00 O2 Flow Rate 1 08/05/24 08:00 BMI result Body Mass Index 22.2 Gen: in no acute distress HEENT: sclera anicteric, moist mucus membranes Neck: supple Lungs: clear to auscultation bilaterally Heart: regular rate and rhythm, no murmurs Abd: soft, non-tender, non-distended Ext: no edema Skin: warm/well-perfused Neuro: alert and oriented x3, LLE sensation diminished Psych: appropriate affect Objective Data Active Medications Acetaminophen (Acetaminophen 325 Mg Tablet) 650 mg PO Q6H PRN PRN Reason: Pain, Mild 1-3,fever,headache Last Admin: 08/04/24 20:30 Dose: 650 mg Documented By: MIKAELA Calcium Carbonate (Calcium Carbonate 750 Mg Tab.Chew) 750 mg PO Q4H PRN PRN Reason: Heartburn Ceftriaxone Sodium (Ceftriaxone Sodium 1 Gm Vial) 1 gm IVPUSH Q24H [facility] Last Admin: 08/05/24 12:09 Dose: 1 gm Documented By: ABEL Enoxaparin Sodium (Enoxaparin Sodium 30 Mg/0.3 Ml Syringe) 30 mg SUBCUT Q24H [facility] Last Admin: 08/04/24 16:12 Dose: 30 mg Documented By: MIKAELA Ferrous Sulfate (Ferrous Sulfate 324 Mg Tablet.Dr) 324 mg PO DAILY [facility] Last Admin: 08/05/24 09:05 Dose: 324 mg Documented By: ABEL Magnesium Hydroxide (Milk Of Magnesia 30 Ml Oral.Susp) 30 ml PO DAILY PRN PRN Reason: Constipation Melatonin (Melatonin 3 Mg Tablet) 6 mg PO BEDTIME PRN PRN Reason: Insomnia Morphine Sulfate (Morphine Sulfate 4 Mg/Ml Cartridge) 4 mg IVPUSH Q4H PRN; Protocol PRN Reason: Pain, Severe (Pain Scale 7-10) Ondansetron HCl (Ondansetron Hcl 4 Mg/2 Ml Vial) 4 mg IVPUSH Q8H PRN PRN Reason: Nausea and Vomiting Oxycodone HCl (Oxycodone Hcl Immed Release 5 Mg Tablet) 5 mg PO Q4H PRN PRN Reason: Pain, Moderate(Pain Scale 4-6) Last Admin: 08/05/24 01:45 Dose: 5 mg Documented By: ERMA Sodium Chloride (0.9 % Sodium Chloride Flush 3 Ml Syringe) 3 ml IVFLUSH QSHIFT [facility] Last Admin: 08/05/24 09:05 Dose: 3 ml Documented By: RICCIAV Labs 08/05/24 08:22 08/05/24 08:22 Labs: Laboratory Results - last 24 hr 08/05/24 08/05/24 08:22 12:12 MCV 93.6 MCH 28.2 MCHC 30.1 L RDW 14.4 Plt Count 147 L MPV 9.8 Absolute Nucleated RBC 0.000 Nucleated RBC % (auto) 0.0 Anion Gap 11 L Estim Creat Clear Calc 25.6 Estimated GFR 24 Random Glucose 126 H Calcium 8.0 L D Influenza Type A (PCR) NEGATIVE Influenza Type B (PCR) NEGATIVE RSV RNA Qual (PCR) NEGATIVE SARS-CoV-2 RNA (RT-PCR) NEGATIVE Microbiology Microbiology Results: Microbiology 08/04/24 11:25 Blood Culture - Preliminary Blood - Venous No growth after 24 hours. 08/04/24 11:19 Blood Culture - Preliminary Blood - Venous No growth after 24 hours. 08/04/24 Unknown Urine Culture - Preliminary Urine clean catch - Clean Catch Midstream Gram negative jacobo Assessment and Plan (1) Acute UTI: Status: Acute Plan d2 for 74yo M with CKD3, prostate CA metastatic to spine s/p XRT, chronic anemia presenting with leg numbness, tingling, and weakness along with back pain admitted for sepsis due to UTI and CRISTIANA sepsis due to UTI - ceftriaxone 08/04-, follow UCx [GNRs] + BCx CRISTIANA/CKD3 [SCr 1.87->2.48->2.59] - probably prerenal, continue IV fluids prostate CA with known T12 blastic lesion - MR T-spine: no evidence of epidural extension and no other suspicious bony lesions - Oncology consulted, PSA pending - prn oxycodone + morphine chronic anemia - continue Fe supplementation VTE ppx - enoxaparin dispo - PT eval done, STR recommended In my clinical judgment, the patient requires continued inpatient hospitalization for the following reasons: IV ABX, placement Total time managing care of this patient today: 35 minutes. Quality Stroke Does the patient have a stroke diagnosis?: No VTE Prior VTE?: No VTE Risk Level:: Medical - moderate - high VTE Device Contraindication: Treatment Not Indicated VTE Drug Contraindication: N/A - Med Ordered
[2024-08-05 15:19] VITALS: BP 112/59; PULSE 93; RESP 18; TEMP 37.1; O2SAT 95
[2024-08-05] MEDS: 0.9 % Sodium Chloride 1,000 ML 125 ML IVCONT ×2 (15:41→23:29)
[2024-08-05] MEDS: Enoxaparin Sodium 30 MG/0.3 ML SYRINGE SUBCUT (15:42)
[2024-08-05 15:48] VITALS: BMI 22.2
[2024-08-05 19:35] VITALS: BP 117/58; PULSE 94; RESP 18; TEMP 37.1; O2SAT 96
[2024-08-06 03:03] VITALS: BP 130/60; PULSE 95; RESP 20; TEMP 36.8; O2SAT 96
[2024-08-06 07:19] VITALS: BP 108/56; PULSE 84; RESP 16; TEMP 36.9; O2SAT 96
[2024-08-06] MEDS: 0.9 % Sodium Chloride 1,000 ML 125 ML IVCONT ×2 (07:25→16:44)
[2024-08-06] MEDS: 0.9 % Sodium Chloride Flush 3 ML SYRINGE IVFLUSH ×2 (07:26→16:45)
[2024-08-06] MEDS: Ferrous Sulfate 324 MG TABLET.DR PO (07:29)
[2024-08-06 07:51] VITALS: O2SAT 92
[2024-08-06 08:16] LABS: Anion Gap 12 (12-20); Blood Urea Nitrogen 40 mg/dL (9-16); Calcium 7.1 mg/dL (8.4-10.2); Carbon Dioxide 20 mmol/L (22-29); Chloride 112 mmol/L (96-108); Creatinine Clr Calc Pharmacy 25.6; Estimated Glomerular Filt Rate 24; Glucose Random 98 mg/dL (60-115); Sodium 140 mmol/L (135-145)
[2024-08-06 08:33] LABS: Procalcitonin 14.76 ng/mL
[2024-08-06] MEDS: Doxycycline Monohydrate 100 MG CAPSULE PO ×2 (08:59→20:08)
[2024-08-06] MEDS: Meropenem 1 GM VIAL IVPUSH ×2 (10:30→22:02)
[2024-08-06 11:52] LABS: Creatinine Urine 77.77 mg/dL
--- NOTE | 2024-08-06 12:03 | P.PNIM_ITS ---
Subjective Subjective Date of Service: 08/06/24 Interval History: no further fever c/o generalized weakness mild cough Review of Systems Review of Systems: Yes all other systems are reviewed and are negative Physical Exam 2 Vital Signs: Vital Signs: Last Vital Signs Temp 98.4 F 08/06/24 07:19 Pulse 84 08/06/24 07:19 Resp 16 08/06/24 07:19 BP 108/56 L 08/06/24 07:19 Pulse Ox 92 08/06/24 07:51 O2 Del Method Room Air 08/06/24 07:51 O2 Flow Rate 2 08/06/24 03:03 BMI result Body Mass Index 22.2 Gen: in no acute distress HEENT: sclera anicteric, moist mucus membranes Neck: supple Lungs: diminished at bases bilaterally Heart: regular rate and rhythm, no murmurs Abd: soft, non-tender, non-distended Ext: no edema Skin: warm/well-perfused Neuro: alert and oriented x3, LLE sensation diminished Psych: appropriate affect Objective Data Active Medications Acetaminophen (Acetaminophen 325 Mg Tablet) 650 mg PO Q6H PRN PRN Reason: Pain, Mild 1-3,fever,headache Last Admin: 08/04/24 20:30 Dose: 650 mg Documented By: MIKAELA Calcium Carbonate (Calcium Carbonate 750 Mg Tab.Chew) 750 mg PO Q4H PRN PRN Reason: Heartburn Doxycycline Monohydrate (Doxycycline Monohydrate 100 Mg Capsule) 100 mg PO Q12H [facility] Last Admin: 08/06/24 08:59 Dose: 100 mg Documented By: KARINA Enoxaparin Sodium (Enoxaparin Sodium 30 Mg/0.3 Ml Syringe) 30 mg SUBCUT Q24H [facility] Last Admin: 08/05/24 15:42 Dose: 30 mg Documented By: ABEL Ferrous Sulfate (Ferrous Sulfate 324 Mg Tablet.Dr) 324 mg PO DAILY [facility] Last Admin: 08/06/24 07:29 Dose: 324 mg Documented By: KARINA Sodium Chloride (Ns) 1,000 mls @ 125 mls/hr IVCONT .Q8H [facility] Last Admin: 08/06/24 07:25 Dose: 125 mls/hr Documented By: KARINA Magnesium Hydroxide (Milk Of Magnesia 30 Ml Oral.Susp) 30 ml PO DAILY PRN PRN Reason: Constipation Melatonin (Melatonin 3 Mg Tablet) 6 mg PO BEDTIME PRN PRN Reason: Insomnia Meropenem (Meropenem 1 Gm Vial) 1 gm IVPUSH Q12H [facility] Last Admin: 08/06/24 10:30 Dose: 1 gm Documented By: KARINA Morphine Sulfate (Morphine Sulfate 4 Mg/Ml Cartridge) 4 mg IVPUSH Q4H PRN; Protocol PRN Reason: Pain, Severe (Pain Scale 7-10) Ondansetron HCl (Ondansetron Hcl 4 Mg/2 Ml Vial) 4 mg IVPUSH Q8H PRN PRN Reason: Nausea and Vomiting Oxycodone HCl (Oxycodone Hcl Immed Release 5 Mg Tablet) 5 mg PO Q4H PRN PRN Reason: Pain, Moderate(Pain Scale 4-6) Last Admin: 08/05/24 20:40 Dose: 5 mg Documented By: NICOLEASY Sodium Chloride (0.9 % Sodium Chloride Flush 3 Ml Syringe) 3 ml IVFLUSH QSHIFT [facility] Last Admin: 08/06/24 07:26 Dose: 3 ml Documented By: KARINA Labs 08/05/24 08:22 08/06/24 06:14 Labs: Laboratory Results - last 24 hr 08/05/24 08/05/24 08/06/24 08:22 12:12 06:14 Hold Purple Top SEE NOTE Anion Gap 12 Estim Creat Clear Calc 25.6 Estimated GFR 24 Random Glucose 98 Calcium 7.1 L D Prostate Specific Ag 0.30 Procalcitonin 14.76 Ur Random Sodium Urine Creatinine Influenza Type A (PCR) NEGATIVE Influenza Type B (PCR) NEGATIVE RSV RNA Qual (PCR) NEGATIVE SARS-CoV-2 RNA (RT-PCR) NEGATIVE 08/06/24 11:13 Hold Purple Top Anion Gap Estim Creat Clear Calc Estimated GFR Random Glucose Calcium Prostate Specific Ag Procalcitonin Ur Random Sodium 56.0 Urine Creatinine 77.77 Influenza Type A (PCR) Influenza Type B (PCR) RSV RNA Qual (PCR) SARS-CoV-2 RNA (RT-PCR) Impressions Chest X-Ray 08/05/24 13:50 IMPRESSION: Bibasilar pneumonia. Electronically signed by: Jose G Dennison MD 08/05/2024 02:36 PM EDT Microbiology Microbiology Results: Microbiology 08/04/24 Unknown Urine Culture - Preliminary Urine clean catch - Clean Catch Midstream Escherichia coli Coag negative Staphylococcus 08/04/24 11:25 Blood Culture - Preliminary Blood - Venous No growth after 24 hours. 08/04/24 11:19 Blood Culture - Preliminary Blood - Venous No growth after 24 hours. Assessment and Plan (1) Acute UTI: Status: Acute Plan 32 for 74yo M with CKD3, prostate CA metastatic to spine s/p XRT, chronic anemia presenting with leg numbness, tingling, and weakness along with back pain admitted for sepsis due to UTI and CRISTIANA sepsis due to UTI and also pneumonia - UCx growing ESBL E. coli; will change ceftriaxone /-4 to meropenem 08/06- and consult ID; BCx negative to date; trend PCT [14.76 yesterday]; also on doxycycline 08/06- - MRSA swab, urinary antigens for Legionella and pneumococcus, and respiratory pathogen PCR panel pending CRISTIANA/CKD3 [SCr 1.87->2.48->2.59 -> 2.65] - FENa indeterminate [1.4%]; continue IV fluids; renal US pending; if worsens, consult Nephrology prostate CA with known T12 blastic lesion - MR T-spine: no evidence of epidural extension and no other suspicious bony lesions - Oncology consulted, PSA 0.3 - prn oxycodone + morphine chronic anemia - continue Fe supplementation VTE ppx - enoxaparin dispo - PT eval done, STR recommended In my clinical judgment, the patient requires continued inpatient hospitalization for the following reasons: IV ABX for ESBL, placement Total time managing care of this patient today: 45 minutes. Quality Stroke Does the patient have a stroke diagnosis?: No VTE Prior VTE?: No VTE Risk Level:: Medical - moderate - high VTE Device Contraindication: Treatment Not Indicated VTE Drug Contraindication: N/A - Med Ordered
[2024-08-06 12:06] LABS: MRSA Nasal PCR NEGATIVE (Negative); SA Nasal PCR NEGATIVE (Negative)
--- NOTE | 2024-08-06 14:27 | P.PNHO-ONC_ITS ---
Medical Summary - Medical Summary Date of Service: 08/06/24 Primary Care Provider: Jose G Dickerson MD Medical Summary: 74 year old man on ADT for prostate cancer admeiited with leg weakness and knownT-11 and T12 disease havng had that area radiated Scalemaker Utilized?: No - Tajik Speaking Interval History Interval history: Keshav Ramos is a 74 year old gentleman with a PMH significant for?CKD 3, prostate cancer with metastasis to bone s/p radiation, and chronic anemia who presents to the ED with?bilateral numbness, tingling, pain, and weakness in lower extremities since last night. Pt reports numbness and tingling most prominent in his upper thighs and pain in his lower back. Pain started last night and persisted this morning when he woke up and found he lacked the strength to get up out of bed. Pt chronically incontinent of urine, though complains of burning with urination for the past few days. Subjective fever and chills. Denies headache or acute vision changes. Has hx of chronic back pain but recently has not been problematic. Denies chest pain/pressure, palpitations. No nausea, vomiting, abdominal pain. Denies shortness or breath or difficulty breathing. In the ED pt was febrile up to 104.1, tachycardic up to 105, tachypneic up to 24, and soft BP as low as 104/50. Labs were significant for leukocytosis of 12.0, creatinine 2.48 (elevated from 1.87 on 06/30/2024), CRP 28.36, and procalcitonin 10.62. UA grossly infected. Tested negative for flu, COVID, RSV. CXR showed no acute airway disease.CT?of abdomen and pelvis concerning for inflammatory vs infectious process involving urinary bladder and urothelium of left urinary collecting system. Also showing blastic lesion of T12 and nonobstructing nephrolithiasis of right kidney. EKG demonstrated sinus tachycardia of 102 without evidence of significant ST elevations or depressions. Pt was treated with IVF, acetaminophen, and ceftriaxone. Pt will be admitted to the hospital for treatment and further evaluation of CRISTIANA in the setting of acute UTI with sepsis. 2 [facility] Medical History:) CHF (congestive heart failure) Overweight Renal cyst Tobacco dependence Urinary incontinence Iron deficiency anemia Hx of radiation therapy Stenosis of lumbosacral spine Falls Hypertension Hypercholesteremia Kidney disease Macular degeneration Hematuria Urgency incontinence Prostate cancer Family History:) Other No family history of coronary artery disease Review of Systems Review of Systems: Negative except for that which is stated in the HPI. Review of Systems - Neurologic Reports system reviewed and no additional complaints, except as documented, Reports tingling, Reports paresthesias, Reports weakness PMFSH Medical History: Medical History (Last Reviewed 08/05/24 @ 10:06 by Meera Deluna, PT) CHF (congestive heart failure) Falls Hematuria Hx of radiation therapy Hypercholesteremia Hypertension Iron deficiency anemia Kidney disease Macular degeneration Overweight Prostate cancer Renal cyst Stenosis of lumbosacral spine Tobacco dependence Urgency incontinence Urinary incontinence Family History: Family History (Last Reviewed 08/04/24 @ 15:49 by KAYLA Santiago) Other No family history of coronary artery disease Surgical History: Surgical History (Last Reviewed 08/05/24 @ 10:06 by Meera Deluna PT) History of back surgery History of incision and drainage History of prostate surgery Spinal surgery in prior 3 months Social History: Social History (Last Reviewed 08/04/24 @ 15:49 by KAYLA Santiago) Living Situation History: Household Members: Spouse Housing: House Are you a primary primary health care nurse to a significant other at home: No Do you presently have visiting nurse or other home services: No Tobacco History: Patient Tobacco Use Status: Current everyday Tobacco Tobacco use type: Cigarette Cigarette Packs Per Day: 0.5 Years Smoked: 60 e-Cigarette/Vaping Use: Never Used Second Hand Smoke Exposure: No Advance Directives: Advance Directives Date on File: 02/19/21 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: service: Yes Current occupational status: retired Home Medications and Allergies Current Medications: Current Medications Acetaminophen (Acetaminophen 325 Mg Tablet) 650 mg PO Q6H PRN PRN Reason: Pain, Mild 1-3,fever,headache Last Admin: 08/04/24 20:30 Dose: 650 mg Calcium Carbonate (Calcium Carbonate 750 Mg Tab.Chew) 750 mg PO Q4H PRN PRN Reason: Heartburn Doxycycline Monohydrate (Doxycycline Monohydrate 100 Mg Capsule) 100 mg PO Q12H [facility] Last Admin: 08/06/24 08:59 Dose: 100 mg Enoxaparin Sodium (Enoxaparin Sodium 30 Mg/0.3 Ml Syringe) 30 mg SUBCUT Q24H [facility] Last Admin: 08/05/24 15:42 Dose: 30 mg Ferrous Sulfate (Ferrous Sulfate 324 Mg Tablet.) 324 mg PO DAILY [facility] Last Admin: 08/06/24 07:29 Dose: 324 mg Sodium Chloride (Ns) 1,000 mls @ 125 mls/hr IVCONT .Q8H [facility] Last Admin: 08/06/24 07:25 Dose: 125 mls/hr Magnesium Hydroxide (Milk Of Magnesia 30 Ml Oral.Susp) 30 ml PO DAILY PRN PRN Reason: Constipation Melatonin (Melatonin 3 Mg Tablet) 6 mg PO BEDTIME PRN PRN Reason: Insomnia Meropenem (Meropenem 1 Gm Vial) 1 gm IVPUSH Q12H [facility] Last Admin: 08/06/24 10:30 Dose: 1 gm Morphine Sulfate (Morphine Sulfate 4 Mg/Ml Cartridge) 4 mg IVPUSH Q4H PRN; Protocol PRN Reason: Pain, Severe (Pain Scale 7-10) Ondansetron HCl (Ondansetron Hcl 4 Mg/2 Ml Vial) 4 mg IVPUSH Q8H PRN PRN Reason: Nausea and Vomiting Oxycodone HCl (Oxycodone Hcl Immed Release 5 Mg Tablet) 5 mg PO Q4H PRN PRN Reason: Pain, Moderate(Pain Scale 4-6) Last Admin: 08/05/24 20:40 Dose: 5 mg Sodium Chloride (0.9 % Sodium Chloride Flush 3 Ml Syringe) 3 ml IVFLUSH QSHIFT [facility] Last Admin: 08/06/24 07:26 Dose: 3 ml Home Medications ?Medication ?Instructions ?Recorded ?Confirmed ?Type ferrous gluconate 324 mg (38 mg 1 tab PO DAILY 03/04/22 08/04/24 History iron) tablet acetaminophen 500 mg tablet 1,000 mg PO TID PRN Fever Or Pain 08/04/24 08/04/24 History Allergies Allergy/AdvReac Type Severity Reaction Status Date / Time No Known Allergies Allergy Verified 08/04/24 10:34 [No Known Allergies*] Exam Vital signs: Vital Signs Temp 98.4 F 08/06/24 07:19 Pulse 84 08/06/24 07:19 Resp 16 08/06/24 07:19 BP 108/56 L 08/06/24 07:19 Pulse Ox 92 08/06/24 07:51 O2 Del Method Room Air 08/06/24 07:51 O2 Flow Rate 2 08/06/24 03:03 Intake & Output 08/05/24 08/06/24 08/06/24 18:59 06:59 18:59 Intake Total 360 / 1655 1295 / 1655 991.667 / 991.667 Output Total 300 / 625 325 / 625 100 / 100 Balance 60 / 1030 970 / 1030 891.667 / 891.667 Urine Output (Average ml/kg/hr) 0.33 0.35 0.11 Intake: Intake, Oral Amount 360 / 680 320 / 680 Intake, IV Amount 975 / 975 991.667 / 991.667 0.9 % Sodium Chloride 1,000 ml 975 / 975 991.667 / 991.667 @ 125 mls/hr IVCONT .Q8H [facility] Rx #:[id number] Output: Output, Urine Amount 300 / 625 325 / 625 100 / 100 Other: Breakfast % Eaten 100% Dinner % Eaten 50% Eating (Feeding) Ability Independent Independent Number of Incontinent Voids 1 1 Urine Urinal Urinal Urinal Urine Color Elvira Elvira Last Bowel Movement 08/02/24 08/02/24 Weight 76.5 kg [place] Weight in Grams [id number] Weight 76.5 kg BMI result Body Mass Index 22.2 - Detailed Neurological Exam: Coma Scale Eye Opening: Spontaneous (4) Data - Labs CBC & Chem 7: 08/05/24 08:22 08/06/24 06:14 Labs: Laboratory Last Values WBC 9.6 X10*3/uL (4.8-10.8) 08/05/24 08:22 RBC 2.98 X10*6/uL (4.60-5.80) L 08/05/24 08:22 Hgb 8.4 g/dl (14.0-18.0) L 08/05/24 08:22 Hct 27.9 % (42.0-52.0) L 08/05/24 08:22 MCV 93.6 fL (80.0-98.0) 08/05/24 08:22 MCH 28.2 pg (27.0-33.0) 08/05/24 08:22 MCHC 30.1 g/dl (31.0-36.0) L 08/05/24 08:22 RDW 14.4 % (11.0-16.0) 08/05/24 08:22 Plt Count 147 X10*3/uL (160-400) L 08/05/24 08:22 MPV 9.8 fL (9.4-12.4) 08/05/24 08:22 Immature Gran % (Auto) 0.5 % (0.0-0.4) H 08/04/24 11:18 Neut % (Auto) 87.3 % (45-73) H 08/04/24 11:18 Lymph % (Auto) 3.8 % (20-40) L 08/04/24 11:18 [place] % (Auto) 8.1 % (2-11) 08/04/24 11:18 Eos % (Auto) 0.0 % (0-4) 08/04/24 11:18 Baso % (Auto) 0.3 % (0-2) 08/04/24 11:18 Lymph # (Auto) 0.5 X10*3/uL (1.2-4.9) L 08/04/24 11:18 [place] # (Auto) 1.0 X10*3/uL (0.1-1.2) 08/04/24 11:18 Eos # (Auto) 0.0 X10*3/uL (0.0-0.4) 08/04/24 11:18 Baso # (Auto) 0.0 X10*3/uL (0.0-0.2) 08/04/24 11:18 Abs Immat Gran (auto) 0.06 X10*3/uL (0.00-0.03) H 08/04/24 11:18 Absolute Neuts (auto) 10.4 x10*3/uL (2.0-8.3) H 08/04/24 11:18 Absolute Nucleated RBC 0.000 X10*3/uL (0.0-0.012) 08/05/24 08:22 Nucleated RBC % (auto) 0.0 /100WBC (0.0-0.2) 08/05/24 08:22 Hold Purple Top SEE NOTE 08/06/24 06:14 Sodium 140 mmol/L (135-145) 08/06/24 06:14 Potassium 4.0 mmol/L (3.3-5.1) 08/06/24 06:14 Chloride 112 mmol/L (96-108) H 08/06/24 06:14 Carbon Dioxide 20 mmol/L (22-29) L 08/06/24 06:14 Anion Gap 12 (12-20) 08/06/24 06:14 BUN 40 mg/dL (9-16) H 08/06/24 06:14 Creatinine 2.65 mg/dL (0.5-1.4) H 08/06/24 06:14 Estim Creat Clear Calc 25.6 08/06/24 06:14 Estimated GFR 24 08/06/24 06:14 Random Glucose 98 mg/dL (60-115) 08/06/24 06:14 Lactic Acid 1.1 mmol/L (0.5-2.0) 08/04/24 11:15 Calcium 7.1 mg/dL (8.4-10.2) L D 08/06/24 06:14 Magnesium 2.5 mg/dL (1.6-2.6) 08/04/24 11:18 Total Bilirubin 0.4 mg/dL (0.0-1.0) 08/04/24 11:18 Direct Bilirubin 0.2 mg/dL (0.0-0.5) 08/04/24 11:18 AST 37 U/L (5-37) 08/04/24 11:18 ALT 9 U/L (0-40) 08/04/24 11:18 Alkaline Phosphatase 55 U/L (39-117) 08/04/24 11:18 Troponin I High Sens 32.3 ng/L (<3.5-35.0) 08/04/24 11:18 C-Reactive Protein 28.36 mg/dL (< or = 0.50) H 08/04/24 11:18 Total Protein 6.7 g/dL (6.5-8.0) 08/04/24 11:18 Albumin 3.8 g/dL (3.5-5.0) 08/04/24 11:18 Lipase 8 U/L (8-78) 08/04/24 11:18 Prostate Specific Ag 0.30 ng/mL (<0.05-4.0) 08/05/24 08:22 Procalcitonin 14.76 ng/mL 08/06/24 06:14 Urine Color Yellow 08/04/24 12:01 Urine Appearance Turbid 08/04/24 12:01 Urine pH 6.5 (5.0-9.0) 08/04/24 12:01 Ur Specific [place] 1.020 (1.005-1.025) 08/04/24 12:01 Urine Protein 300 (3+) mg/dL (Neg-Trace) H 08/04/24 12:01 Urine Glucose (UA) Negative mg/dL (Negative) 08/04/24 12:01 Urine Ketones Trace mg/dL (Negative) 08/04/24 12:01 Urine Blood Large (3+) (Negative) H 08/04/24 12:01 Urine Nitrite Negative (Negative) 08/04/24 12:01 Ur Leukocyte Esterase Large (3+) (Negative) H 08/04/24 12:01 Urine RBC 11-20 /HPF (0-2) H 08/04/24 12:01 Urine WBC >50 /HPF (0-5) H 08/04/24 12:01 Ur Squamous Epith Cells 0-2 /HPF (0-2) 08/04/24 12:01 Urine Bacteria None Seen (None Seen) 08/04/24 12:01 Hyaline Casts 0-2 /LPF (0-2) 08/04/24 12:01 Ur Random Sodium 56.0 mmol/L 08/06/24 11:13 Urine Creatinine 77.77 mg/dL 08/06/24 11:13 Nasal Screen MRSA (PCR) NEGATIVE (Negative) 08/06/24 10:20 Nasal S. aureus Screen NEGATIVE (Negative) 08/06/24 10:20 Nasal MRSA/S.aureus Interp SEE NOTE 08/06/24 10:20 Influenza Type A (PCR) NEGATIVE (Negative) 08/05/24 12:12 Influenza Type B (PCR) NEGATIVE (Negative) 08/05/24 12:12 RSV RNA Qual (PCR) NEGATIVE (Negative) 08/05/24 12:12 SARS-CoV-2 RNA (RT-PCR) NEGATIVE (Negative) 08/05/24 12:12 - Imaging Radiologist's impression: ITS Impressions Chest X-Ray 08/04/24 11:53 IMPRESSION: No acute airspace disease. Electronically signed by: Hugo Ralph MD 08/04/2024 12:12 PM EDT RP Abdomen/Pelvis CT 08/04/24 12:42 IMPRESSION: Concerning inflammatory versus infectious process involving the urinary bladder and the urothelium of the left urinary collecting system. Nonobstructing nephrolithiasis, right kidney. Bilateral renal cysts. Blastic lesion, T12. 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 Hepatomegaly. Atherosclerosis disease. Fleischner guidelines were followed. Electronically signed by: Hugo Ralph MD 08/04/2024 01:15 PM EDT RP Chest X-Ray 08/05/24 13:50 IMPRESSION: Bibasilar pneumonia. Electronically signed by: Jose G Dennison MD 08/05/2024 02:36 PM EDT RP Assessment and Plan Patient Active problem list reviewed?: Yes (1) Prostate cancer metastatic to bone Status: Acute Assessment and plan: . CC: The MRI of the sp[ine shows no cord compression. Recommend PTand OT. Will follow. - Time Spent With Patient Time Spent with Patient (in minutes): 15
[2024-08-06 15:17] VITALS: BP 112/57; PULSE 93; RESP 16; TEMP 37.2; O2SAT 95
[2024-08-06] MEDS: Enoxaparin Sodium 30 MG/0.3 ML SYRINGE SUBCUT (16:45)
[2024-08-06 19:44] VITALS: BP 141/71; PULSE 98; RESP 20; TEMP 36.8; O2SAT 94
[2024-08-07] MEDS: Melatonin 3 MG TABLET 6 MG PO ×2 (01:15→23:36)
[2024-08-07] MEDS: 0.9 % Sodium Chloride 1,000 ML 125 ML IVCONT (01:16)
[2024-08-07 03:04] VITALS: BP 140/65; PULSE 100; RESP 18; TEMP 36.2; O2SAT 93
[2024-08-07 06:34] LABS: Anion Gap 11 (12-20); Blood Urea Nitrogen 31 mg/dL (9-16); Calcium 6.9 mg/dL (8.4-10.2); Carbon Dioxide 20 mmol/L (22-29); Chloride 115 mmol/L (96-108); Creatinine Clr Calc Pharmacy 28.9; Estimated Glomerular Filt Rate 27; Glucose Random 94 mg/dL (60-115); Potassium 3.8 mmol/L (3.3-5.1); Sodium 142 mmol/L (135-145)
[2024-08-07 06:40] LABS: B Type Natriuretic Peptide 191 pg/mL (<100)
[2024-08-07 07:20] VITALS: BP 146/65; PULSE 88; RESP 18; TEMP 36.6; O2SAT 97
[2024-08-07] MEDS: 0.9 % Sodium Chloride Flush 3 ML SYRINGE IVFLUSH ×3 (07:25→21:12)
[2024-08-07] MEDS: Doxycycline Monohydrate 100 MG CAPSULE PO ×2 (07:25→19:40)
[2024-08-07] MEDS: Ferrous Sulfate 324 MG TABLET.DR PO (07:25)
--- NOTE | 2024-08-07 08:53 | PC.NURSE ---
BNP [id number],patient reports voiding small amts,need to force it out,Dr. Mehta made aware
[2024-08-07] MEDS: Meropenem 1 GM VIAL IVPUSH ×2 (09:27→21:12)
--- NOTE | 2024-08-07 10:18 | HO.PM.IMPN ---
Subjective Subjective Date of Service: 08/07/24 Interval History: no fever c/o generalized weakness difficulty urinating cough improved off O2 Review of Systems Review of Systems: Yes all other systems are reviewed and are negative Physical Exam Vital Signs: Vital Signs: Last Vital Signs Temp 97.8 F 08/07/24 07:20 Pulse 88 08/07/24 07:20 Resp 18 08/07/24 07:20 BP 146/65 H 08/07/24 07:20 Pulse Ox 97 08/07/24 07:20 O2 Del Method Room Air 08/07/24 07:20 O2 Flow Rate 2 08/06/24 03:03 BMI result Body Mass Index 22.2 Gen: in no acute distress HEENT: sclera anicteric, moist mucus membranes Neck: supple Lungs: diminished at bases bilaterally Heart: regular rate and rhythm, no murmurs Abd: soft, non-tender, non-distended Ext: no edema Skin: warm/well-perfused Neuro: alert and oriented x3, LLE sensation diminished Psych: appropriate affect Objective Data Active Medications Acetaminophen (Acetaminophen 325 Mg Tablet) 650 mg PO Q6H PRN PRN Reason: Pain, Mild 1-3,fever,headache Last Admin: 08/04/24 20:30 Dose: 650 mg Documented By: MIKAELA Calcium Carbonate (Calcium Carbonate 750 Mg Tab.Chew) 750 mg PO Q4H PRN PRN Reason: Heartburn Doxycycline Monohydrate (Doxycycline Monohydrate 100 Mg Capsule) 100 mg PO Q12H [facility] Last Admin: 08/07/24 07:25 Dose: 100 mg Documented By: KARINA Enoxaparin Sodium (Enoxaparin Sodium 30 Mg/0.3 Ml Syringe) 30 mg SUBCUT Q24H [facility] Last Admin: 08/06/24 16:45 Dose: 30 mg Documented By: KARINA Ferrous Sulfate (Ferrous Sulfate 324 Mg Tablet.Dr) 324 mg PO DAILY [facility] Last Admin: 08/07/24 07:25 Dose: 324 mg Documented By: KARINA Magnesium Hydroxide (Milk Of Magnesia 30 Ml Oral.Susp) 30 ml PO DAILY PRN PRN Reason: Constipation Melatonin (Melatonin 3 Mg Tablet) 6 mg PO BEDTIME PRN PRN Reason: Insomnia Last Admin: 08/07/24 01:15 Dose: 6 mg Documented By: DONG Meropenem (Meropenem 1 Gm Vial) 1 gm IVPUSH Q12H [facility] Last Admin: 08/07/24 09:27 Dose: 1 gm Documented By: KARINA Morphine Sulfate (Morphine Sulfate 4 Mg/Ml Cartridge) 4 mg IVPUSH Q4H PRN; Protocol PRN Reason: Pain, Severe (Pain Scale 7-10) Ondansetron HCl (Ondansetron Hcl 4 Mg/2 Ml Vial) 4 mg IVPUSH Q8H PRN PRN Reason: Nausea and Vomiting Oxycodone HCl (Oxycodone Hcl Immed Release 5 Mg Tablet) 5 mg PO Q4H PRN PRN Reason: Pain, Moderate(Pain Scale 4-6) Last Admin: 08/05/24 20:40 Dose: 5 mg Documented By: TUMASY Sodium Chloride (0.9 % Sodium Chloride Flush 3 Ml Syringe) 3 ml IVFLUSH QSHIFT [facility] Last Admin: 08/07/24 07:25 Dose: 3 ml Documented By: KARINA Tamsulosin HCl (Tamsulosin Hcl 0.4 Mg Capsule) 0.8 mg PO BEDTIME [facility] Labs 08/05/24 08:22 08/07/24 05:21 Labs: Laboratory Results - last 24 hr 08/06/24 08/06/24 08/07/24 10:20 11:13 05:21 Anion Gap 11 L Estim Creat Clear Calc 28.9 Estimated GFR 27 Random Glucose 94 Calcium 6.9 L B-Natriuretic Peptide 191 H Ur Random Sodium 56.0 Urine Creatinine 77.77 Nasal Screen MRSA (PCR) NEGATIVE Nasal S. aureus Screen NEGATIVE Nasal MRSA/S.aureus Interp SEE NOTE Microbiology Microbiology Results: Microbiology 08/04/24 Unknown Urine Culture - Final Urine clean catch - Clean Catch Midstream Escherichia coli Staphylococcus epidermidis 08/04/24 11:25 Blood Culture - Preliminary Blood - Venous No growth after 48 hours. 08/04/24 11:19 Blood Culture - Preliminary Blood - Venous No growth after 48 hours. Assessment and Plan (1) Acute UTI: Status: Acute Plan d4 for 74yo M with CKD3, prostate CA metastatic to spine s/p XRT, chronic anemia presenting with leg numbness, tingling, and weakness along with back pain admitted for sepsis due to UTI and CRISTIANA sepsis due to UTI and also pneumonia - UCx growing ESBL E. coli; changed ceftriaxone 08/04-08/06 to meropenem 08/06- and ID consult pending; will obtain midline catheter 08/08; BCx negative; trend PCT [14.76 yesterday]; also on doxycycline 08/06- - MRSA swab negative; urinary antigens for Legionella and pneumococcus and respiratory pathogen PCR panel pending CRISTIANA/CKD3 - FENa indeterminate [1.4%]; improving; d/c IV fluids prostate CA with known T12 blastic lesion - MR T-spine: no evidence of epidural extension and no other suspicious bony lesions - Oncology consulted, PSA 0.3 - prn oxycodone + morphine - Urology consult re difficulty urinating chronic anemia - continue Fe supplementation VTE ppx - enoxaparin dispo - PT eval done, STR recommended In my clinical judgment, the patient requires continued inpatient hospitalization for the following reasons: IV ABX for ESBL, placement Total time managing care of this patient today: 45 minutes. Quality Stroke Does the patient have a stroke diagnosis?: No VTE Prior VTE?: No VTE Risk Level:: Medical - moderate - high VTE Device Contraindication: Treatment Not Indicated VTE Drug Contraindication: N/A - Med Ordered
--- NOTE | 2024-08-07 13:50 | PC.NURSE ---
No need to send specimen for resp. panel per Dr. Mehta
[2024-08-07] MEDS: Enoxaparin Sodium 30 MG/0.3 ML SYRINGE SUBCUT (15:12)
[2024-08-07 15:46] VITALS: BP 138/63; PULSE 88; RESP 16; TEMP 36.4; O2SAT 95
--- NOTE | 2024-08-07 16:24 | PC.NURSE ---
CA level 6.9 today ,Dr. Mehta made aware
[2024-08-07 16:51] LABS: Albumin Level 2.6 g/dL (3.5-5.0)
[2024-08-07 19:21] VITALS: BP 146/64; PULSE 94; RESP 17; TEMP 37.2; O2SAT 94
[2024-08-07] MEDS: Tamsulosin HCL 0.4 MG CAPSULE 0.8 MG PO (21:11)
[2024-08-08 03:33] VITALS: BP 105/51; PULSE 75; RESP 17; TEMP 36.6; O2SAT 94
[2024-08-08 07:33] LABS: Anion Gap 10 (12-20); Blood Urea Nitrogen 23 mg/dL (9-16); Calcium 6.9 mg/dL (8.4-10.2); Carbon Dioxide 22 mmol/L (22-29); Chloride 114 mmol/L (96-108); Creatinine Clr Calc Pharmacy 30.9; Estimated Glomerular Filt Rate 29; Glucose Random 91 mg/dL (60-115); Potassium 3.9 mmol/L (3.3-5.1); Sodium 142 mmol/L (135-145)
[2024-08-08 07:41] VITALS: BP 126/62; PULSE 88; RESP 16; TEMP 36.9; O2SAT 94
[2024-08-08 07:49] LABS: Procalcitonin 3.54 ng/mL
[2024-08-08] MEDS: Doxycycline Monohydrate 100 MG CAPSULE PO ×2 (07:51→19:42)
[2024-08-08] MEDS: Ferrous Sulfate 324 MG TABLET.DR PO (07:51)
[2024-08-08] MEDS: 0.9 % Sodium Chloride Flush 3 ML SYRINGE IVFLUSH ×2 (07:52→21:46)
--- NOTE | 2024-08-08 10:35 | PC.NURSE ---
Pt son called for information, pt son not on HIPPA list and instructed to talk to patients for updates. Son seemed confused about this concept r/t HIPPA
[2024-08-08] MEDS: Meropenem 1 GM VIAL IVPUSH ×2 (10:52→21:45)
--- NOTE | 2024-08-08 11:09 | P.PNIM_ITS ---
Subjective Subjective Date of Service: 08/08/24 Interval History: c/o residual LLE weakness minimal cough difficulty urinating Review of Systems Review of Systems: Yes all other systems are reviewed and are negative Physical Exam 2 Vital Signs: Vital Signs: Last Vital Signs Temp 98.4 F 08/08/24 07:41 Pulse 88 08/08/24 07:41 Resp 16 08/08/24 07:41 BP 126/62 08/08/24 07:41 Pulse Ox 94 08/08/24 07:41 O2 Del Method Room Air 08/08/24 07:41 O2 Flow Rate 2 08/06/24 03:03 BMI result Body Mass Index 22.2 Gen: in no acute distress HEENT: sclera anicteric, moist mucus membranes Neck: supple Lungs: diminished at bases bilaterally Heart: regular rate and rhythm, no murmurs Abd: soft, non-tender, non-distended Ext: no edema Skin: warm/well-perfused Neuro: alert and oriented x3, decreased strength in hip flexors on L Psych: appropriate affect Objective Data Active Medications Acetaminophen (Acetaminophen 325 Mg Tablet) 650 mg PO Q6H PRN PRN Reason: Pain, Mild 1-3,fever,headache Last Admin: 08/04/24 20:30 Dose: 650 mg Documented By: MIKAELA Calcium Carbonate (Calcium Carbonate 750 Mg Tab.Chew) 750 mg PO Q4H PRN PRN Reason: Heartburn Doxycycline Monohydrate (Doxycycline Monohydrate 100 Mg Capsule) 100 mg PO Q12H [facility] Last Admin: 08/08/24 07:51 Dose: 100 mg Documented By: MARGE Enoxaparin Sodium (Enoxaparin Sodium 30 Mg/0.3 Ml Syringe) 30 mg SUBCUT Q24H [facility] Last Admin: 08/07/24 15:12 Dose: 30 mg Documented By: KARINA Ferrous Sulfate (Ferrous Sulfate 324 Mg Tablet.Dr) 324 mg PO DAILY [facility] Last Admin: 08/08/24 07:51 Dose: 324 mg Documented By: MARGE Magnesium Hydroxide (Milk Of Magnesia 30 Ml Oral.Susp) 30 ml PO DAILY PRN PRN Reason: Constipation Melatonin (Melatonin 3 Mg Tablet) 6 mg PO BEDTIME PRN PRN Reason: Insomnia Last Admin: 08/07/24 23:36 Dose: 6 mg Documented By: DONG Meropenem (Meropenem 1 Gm Vial) 1 gm IVPUSH Q12H [facility] Last Admin: 08/08/24 10:52 Dose: 1 gm Documented By: MARGE Morphine Sulfate (Morphine Sulfate 4 Mg/Ml Cartridge) 4 mg IVPUSH Q4H PRN; Protocol PRN Reason: Pain, Severe (Pain Scale 7-10) Ondansetron HCl (Ondansetron Hcl 4 Mg/2 Ml Vial) 4 mg IVPUSH Q8H PRN PRN Reason: Nausea and Vomiting Oxycodone HCl (Oxycodone Hcl Immed Release 5 Mg Tablet) 5 mg PO Q4H PRN PRN Reason: Pain, Moderate(Pain Scale 4-6) Last Admin: 08/05/24 20:40 Dose: 5 mg Documented By: EVONNE Sodium Chloride (0.9 % Sodium Chloride Flush 3 Ml Syringe) 3 ml IVFLUSH QSHIFT [facility] Last Admin: 08/08/24 07:52 Dose: 3 ml Documented By: MARGE Tamsulosin HCl (Tamsulosin Hcl 0.4 Mg Capsule) 0.8 mg PO BEDTIME [facility] Last Admin: 08/07/24 21:11 Dose: 0.8 mg Documented By: DONG Labs 08/05/24 08:22 08/08/24 06:09 Labs: Laboratory Results - last 24 hr 08/07/24 08/08/24 05:21 06:09 Hold Purple Top SEE NOTE Anion Gap 10 L Estim Creat Clear Calc 30.9 Estimated GFR 29 Random Glucose 91 Calcium 6.9 L Albumin 2.6 L Procalcitonin 3.54 Microbiology Microbiology Results: Microbiology 08/04/24 Unknown Urine Culture - Final Urine clean catch - Clean Catch Midstream Escherichia coli Staphylococcus epidermidis Assessment and Plan (1) Acute UTI: Status: Acute Plan d5 for 74yo M with CKD3, prostate CA metastatic to spine s/p XRT, chronic anemia presenting with leg numbness, tingling, and weakness along with back pain admitted for sepsis due to UTI and CRISTIANA sepsis due to UTI and also pneumonia - UCx grew ESBL E. coli; changed ceftriaxone 08/04-08/06 to meropenem 08/06-08/16 [complete with ertapenem upon discharge] for total 10d per ID; will obtain midline catheter; BCx negative PCT coming down; on meropenem as above and also doxycycline 08/06-08/11 - MRSA swab negative; urinary antigens for Legionella and pneumococcus pending CRISTIANA/CKD3 - FENa indeterminate [1.4%]; improving; d/c'ed IV fluids prostate CA with known T12 blastic lesion - MR T-spine: no evidence of epidural extension and no other suspicious bony lesions - Oncology consulted, PSA 0.3 - prn oxycodone + morphine - Urology consult re difficulty urinating - will check MR L-spine given weakness in LLE chronic anemia - continue Fe supplementation VTE ppx - enoxaparin dispo - plan STR In my clinical judgment, the patient requires continued inpatient hospitalization for the following reasons: IV ABX for ESBL, midline, placement Total time managing care of this patient today: 45 minutes. Quality Stroke Does the patient have a stroke diagnosis?: No VTE Prior VTE?: No VTE Risk Level:: Medical - moderate - high VTE Device Contraindication: Treatment Not Indicated VTE Drug Contraindication: N/A - Med Ordered
--- NOTE | 2024-08-08 11:14 | MHC.CM.PN ---
Addendum entered by Leann Zaragoza 08/08/24 12:00: The patient has accepted a bed at [facility]. Discharge is anticipated tomorrow. Original Note: Per MD rounds Patient will need to discharge to STR. A PT eval recommendation is STR. The patient also requires IV ertapenum at discharge. Facility preferences obtain and referrals have been sent. [facility]. DP STR for IV ABX via BLS.
--- NOTE | 2024-08-08 11:48 | P.CONNP_ITS ---
History of Present Illness Reason for Consult Consult date: 08/08/24 Chief Complaint Chief complaint: UTI with Sepsis History of Present Illness Narrative: 74-year-old male with CKD 3 (who sees Dr Ma ), prostate cancer with metastasis to bone s/p radiation, and chronic anemia presented to the ER with?bilateral numbness, tingling, pain, and weakness in lower extremities. Pt chronically incontinent of urine but had burning with urination for the past few days prior to presentation. He had subjective fever and chills. Has hx of chronic back pain but recently has not been problematic. Denies chest pain/pressure, palpitations. No nausea, vomiting, abdominal pain. Denies shortness or breath or difficulty breathing. In the ED pt was febrile up to 104.1, tachycardic up to 105, tachypneic up to 24, and soft BP as low as 104/50. Labs were significant for leukocytosis of 12.0, creatinine 2.48 (elevated from 1.87 on 06/30/2024), CRP 28.36, and procalcitonin 10.62. UA grossly infected. Tested negative for flu, COVID, RSV. CXR showed no acute airway disease.CT?of abdomen and pelvis concerning for inflammatory vs infectious process involving urinary bladder and urothelium of left urinary collecting system. Also showing blastic lesion of T12 and nonobstructing nephrolithiasis of right kidney. EKG demonstrated sinus tachycardia of 102 without evidence of significant ST elevations or depressions. Pt was treated with IVF, acetaminophen, and ceftriaxone. Pt was admitted to the hospital for treatment and further evaluation of CRISTIANA in the setting of acute UTI with sepsis. Nephrology has been consulted to assist in his clinical care during his current hospital stay Review of Systems Review of Systems Yes all other systems are reviewed and are negative [facility] Past Medical History Medical History CHF (congestive heart failure) Overweight Renal cyst Tobacco dependence Urinary incontinence Iron deficiency anemia Hx of radiation therapy Stenosis of lumbosacral spine Falls Hypertension Hypercholesteremia Kidney disease Macular degeneration Hematuria Urgency incontinence Prostate cancer Family History Family History Other No family history of coronary artery disease Surgical History Surgical History History of incision and drainage Spinal surgery in prior 3 months History of prostate surgery History of back surgery Social History Social History Household Members: Spouse Housing: House Are you a primary sub acute care nurse to a significant other at home: No Do you presently have visiting nurse or other home services: No Alcohol intake: former Patient Tobacco Use Status: Current everyday Tobacco user Smoking Start Date: 06/18/61 Tobacco use type: Cigarette Cigarette Packs Per Day: 0.5 Years Smoked: 60 e-Cigarette/Vaping Use: Never Used Second Hand Smoke Exposure: No Advance Directives Date on File: 02/19/21 service: Yes Current occupational status: retired Meds Allergies Allergy/AdvReac Type Severity Reaction Status Date / Time No Known Allergies Allergy Verified 08/04/24 10:34 [No Known Allergies*] Active Medications: Current Medications Acetaminophen (Acetaminophen 325 Mg Tablet) 650 mg PO Q6H PRN PRN Reason: Pain, Mild 1-3,fever,headache Last Admin: 08/04/24 20:30 Dose: 650 mg Calcium Carbonate (Calcium Carbonate 750 Mg Tab.Chew) 750 mg PO Q4H PRN PRN Reason: Heartburn Doxycycline Monohydrate (Doxycycline Monohydrate 100 Mg Capsule) 100 mg PO Q12H [facility] Last Admin: 08/08/24 07:51 Dose: 100 mg Enoxaparin Sodium (Enoxaparin Sodium 30 Mg/0.3 Ml Syringe) 30 mg SUBCUT Q24H [facility] Last Admin: 08/07/24 15:12 Dose: 30 mg Ferrous Sulfate (Ferrous Sulfate 324 Mg Tablet.Dr) 324 mg PO DAILY [facility] Last Admin: 08/08/24 07:51 Dose: 324 mg Magnesium Hydroxide (Milk Of Magnesia 30 Ml Oral.Susp) 30 ml PO DAILY PRN PRN Reason: Constipation Melatonin (Melatonin 3 Mg Tablet) 6 mg PO BEDTIME PRN PRN Reason: Insomnia Last Admin: 08/07/24 23:36 Dose: 6 mg Meropenem (Meropenem 1 Gm Vial) 1 gm IVPUSH Q12H [facility] Last Admin: 08/08/24 10:52 Dose: 1 gm Morphine Sulfate (Morphine Sulfate 4 Mg/Ml Cartridge) 4 mg IVPUSH Q4H PRN; Protocol PRN Reason: Pain, Severe (Pain Scale 7-10) Ondansetron HCl (Ondansetron Hcl 4 Mg/2 Ml Vial) 4 mg IVPUSH Q8H PRN PRN Reason: Nausea and Vomiting Oxycodone HCl (Oxycodone Hcl Immed Release 5 Mg Tablet) 5 mg PO Q4H PRN PRN Reason: Pain, Moderate(Pain Scale 4-6) Last Admin: 08/05/24 20:40 Dose: 5 mg Sodium Chloride (0.9 % Sodium Chloride Flush 3 Ml Syringe) 3 ml IVFLUSH QSHIFT [facility] Last Admin: 08/08/24 07:52 Dose: 3 ml Tamsulosin HCl (Tamsulosin Hcl 0.4 Mg Capsule) 0.8 mg PO BEDTIME [facility] Last Admin: 08/07/24 21:11 Dose: 0.8 mg Home Medications ?Medication ?Instructions ?Recorded ?Confirmed ?Last Taken ?Type ferrous gluconate 324 mg (38 mg 1 tab PO DAILY 03/04/22 08/04/24 08/03/24 History iron) tablet acetaminophen 500 mg tablet 1,000 mg PO TID PRN Fever Or Pain 08/04/24 08/04/24 08/03/24 History Physical Exam Vital Signs: Last Vital Signs Temp 98.4 F 08/08/24 07:41 Pulse 88 08/08/24 07:41 Resp 16 08/08/24 07:41 BP 126/62 08/08/24 07:41 Pulse Ox 94 08/08/24 07:41 O2 Del Method Room Air 08/08/24 07:41 O2 Flow Rate 2 08/06/24 03:03 BMI result Body Mass Index 22.2 Const General: no acute distress Orientation/consciousness: patient oriented x3 Eyes EOM: EOMs intact bilaterally Resp Auscultation: diminished lung sounds Cardio Rate: regular rate GI Palpation (GI): Soft to palpation Neuro General: patient oriented x3 Results Lab Results 08/05/24 08:22 08/08/24 06:09 Lab results: Chemistry 08/06/24 08/07/24 08/08/24 06:14 05:21 06:09 Sodium 140 142 142 Potassium 4.0 3.8 3.9 Carbon Dioxide 20 L 20 L 22 BUN 40 H 31 H 23 H Creatinine 2.65 H 2.35 H 2.20 H Calcium 7.1 L D 6.9 L 6.9 L Urine Studies 08/06/24 11:13 Urine Creatinine 77.77 Assessment and Plan (1) Acute kidney injury superimposed on chronic kidney disease: Status: Acute Plan CRISTIANA on CKD due to tubular injury Follows up with Dr Ma as outpatient No obstruction by imaging Serum creatinine fairly stable No reason to suspect GN/AIN Can have PICC/midline Continue rest of currrent management for now Procedures Date of Service Date of Service: 08/08/24
--- NOTE | 2024-08-08 12:58 | P.CNID_ITS ---
History of Present Illness Data of Consult Service Date: 08/08/24 Requesting physician: Bassem Mehta Primary Care Provider: Jose G Dickerson MD HPI Reason for consult: sepsis,ESBL urine He presents on 08/04 with right leg pain and dysuria. He had temperature 102.3 and tachycardia to 110. He has ESBL E coli urine and no bacteremia. He has left uroepithelial and bladder inflammation on CT. He is upset because he was give po antibiotics and no improvement. He has prostate cancer and being treated by Dr Mace. Review of Systems 2 Review of Systems: Yes all other systems are reviewed and are negative [facility] Past Medical History Medical History CHF (congestive heart failure) Overweight Renal cyst Tobacco dependence Urinary incontinence Iron deficiency anemia Hx of radiation therapy Stenosis of lumbosacral spine [place] Hypertension Hypercholesteremia Kidney disease Macular degeneration Hematuria Urgency incontinence Prostate cancer Family History Family History Other No family history of coronary artery disease Family history: reviewed and not pertinent Surgical History Surgical History History of incision and drainage Spinal surgery in prior 3 months History of prostate surgery History of back surgery Social History Social History Household Members: Spouse Housing: House Are you a primary care coordinator to a significant other at home: No Do you presently have visiting nurse or other home services: No Alcohol intake: former Patient Tobacco Use Status: Current everyday Tobacco user Smoking Start Date: 06/18/61 Tobacco use type: Cigarette Cigarette Packs Per Day: 0.5 Years Smoked: 60 e-Cigarette/Vaping Use: Never Used Second Hand Smoke Exposure: No Advance Directives Date on File: 02/19/21 service: Yes Current occupational status: retired Meds Allergies Allergy/AdvReac Type Severity Reaction Status Date / Time No Known Allergies Allergy Verified 08/04/24 10:34 [No Known Allergies*] Active Medications: Current Medications Acetaminophen (Acetaminophen 325 Mg Tablet) 650 mg PO Q6H PRN PRN Reason: Pain, Mild 1-3,fever,headache Last Admin: 08/04/24 20:30 Dose: 650 mg Calcium Carbonate (Calcium Carbonate 750 Mg Tab.Chew) 750 mg PO Q4H PRN PRN Reason: Heartburn Doxycycline Monohydrate (Doxycycline Monohydrate 100 Mg Capsule) 100 mg PO Q12H [facility] Last Admin: 08/08/24 07:51 Dose: 100 mg Enoxaparin Sodium (Enoxaparin Sodium 30 Mg/0.3 Ml Syringe) 30 mg SUBCUT Q24H [facility] Last Admin: 08/07/24 15:12 Dose: 30 mg Ferrous Sulfate (Ferrous Sulfate 324 Mg Tablet.Dr) 324 mg PO DAILY [facility] Last Admin: 08/08/24 07:51 Dose: 324 mg Magnesium Hydroxide (Milk Of Magnesia 30 Ml Oral.Susp) 30 ml PO DAILY PRN PRN Reason: Constipation Melatonin (Melatonin 3 Mg Tablet) 6 mg PO BEDTIME PRN PRN Reason: Insomnia Last Admin: 08/07/24 23:36 Dose: 6 mg Meropenem (Meropenem 1 Gm Vial) 1 gm IVPUSH Q12H [facility] Last Admin: 08/08/24 10:52 Dose: 1 gm Morphine Sulfate (Morphine Sulfate 4 Mg/Ml Cartridge) 4 mg IVPUSH Q4H PRN; Protocol PRN Reason: Pain, Severe (Pain Scale 7-10) Ondansetron HCl (Ondansetron Hcl 4 Mg/2 Ml Vial) 4 mg IVPUSH Q8H PRN PRN Reason: Nausea and Vomiting Oxycodone HCl (Oxycodone Hcl Immed Release 5 Mg Tablet) 5 mg PO Q4H PRN PRN Reason: Pain, Moderate(Pain Scale 4-6) Last Admin: 08/05/24 20:40 Dose: 5 mg Sodium Chloride (0.9 % Sodium Chloride Flush 3 Ml Syringe) 3 ml IVFLUSH QSHIFT [facility] Last Admin: 08/08/24 07:52 Dose: 3 ml Tamsulosin HCl (Tamsulosin Hcl 0.4 Mg Capsule) 0.8 mg PO BEDTIME [facility] Last Admin: 08/07/24 21:11 Dose: 0.8 mg Home Medications ?Medication ?Instructions ?Recorded ?Confirmed ?Last Taken ?Type ferrous gluconate 324 mg (38 mg 1 tab PO DAILY 03/04/22 08/04/24 08/03/24 History iron) tablet acetaminophen 500 mg tablet 1,000 mg PO TID PRN Fever Or Pain 08/04/24 08/04/24 08/03/24 History Physical Exam 2 Vital Signs: Vital Signs: Last Vital Signs Temp 98.4 F 08/08/24 07:41 Pulse 88 08/08/24 07:41 Resp 16 08/08/24 07:41 BP 126/62 08/08/24 07:41 Pulse Ox 94 08/08/24 07:41 O2 Del Method Room Air 08/08/24 07:41 O2 Flow Rate 2 08/06/24 03:03 BMI result Body Mass Index 22.2 Const: General: cooperative HEENT: Head: Yes normal to inspection Face and sinus: Yes normal facial exam Mouth: Normal oral and palatal mucosa present Teeth and gingiva: d entition normal Eyes: General: appearance normal, both eyes and all related structures P upils: Equal, round and reactive pupils present Resp: Effort & Inspection: normal respiratory effort Cardio: Rate: regular rate Rhythm: regular rhythm GI: Palpation (GI): Soft to palpation and nontender : General: Yes no CVA tenderness Back/Spine/Pelvis: Back: no CVA tenderness Skin: General skin exam: no rashes or lesions noted Neuro: General: moves all extremities Cranial nerves: Yes Equal, round and reactive pupils present Extrem: General: Yes normal to inspection Psych: Appearance: grossly normal Results Labs 08/05/24 08:22 08/08/24 06:09 Labs: BMP 08/08/24 06:09 Sodium 142 Potassium 3.9 Chloride 114 H Carbon Dioxide 22 BUN 23 H Creatinine 2.20 H Calcium 6.9 L Liver Function 08/07/24 Range/Units 05:21 Albumin 2.6 L (3.5-5.0) g/dL Microbiology Microbiology Results: Microbiology 08/04/24 Unknown Urine clean catch - Clean Catch Midstream Urine Culture - Final Escherichia coli Staphylococcus epidermidis 08/04/24 11:25 Blood - Venous Blood Culture - Preliminary No growth after 48 hours. 08/04/24 11:19 Blood - Venous Blood Culture - Preliminary No growth after 48 hours. Assessment and Plan (1) Prostate cancer metastatic to bone: Status: Acute (2) Sepsis: Status: Resolved Plan He has resistant clinically significant urinary tract E coli sepsis He is improving He should take total 10 days Merem/Ertapenem. Follow Dr Mace.
[2024-08-08] MEDS: gadobutroL 7.5 ML VIAL IVPUSH (15:26)
[2024-08-08 17:25] VITALS: BP 139/65; PULSE 95; RESP 16; TEMP 37.1; O2SAT 97
--- NOTE | 2024-08-08 17:29 | PC.NURSE ---
Unsuccessful attempt at right arm midline. aware.
[2024-08-08 19:19] VITALS: BP 133/63; PULSE 98; RESP 16; TEMP 36.9; O2SAT 96
[2024-08-08] MEDS: Tamsulosin HCL 0.4 MG CAPSULE 0.8 MG PO (19:42)
[2024-08-08] MEDS: Melatonin 3 MG TABLET 6 MG PO (21:46)
--- NOTE | 2024-08-09 03:32 | PC.NURSE ---
pt refusing bed alarm and chair alarm, he has agreed to ring when he needs to go to the bathroom.
[2024-08-09 04:00] VITALS: BP 123/56; PULSE 79; RESP 16; TEMP 36.1; O2SAT 94
[2024-08-09 07:29] VITALS: BP 129/61; PULSE 81; RESP 18; TEMP 37.1; O2SAT 94
[2024-08-09] MEDS: Ferrous Sulfate 324 MG TABLET.DR PO (07:42)
[2024-08-09] MEDS: Doxycycline Monohydrate 100 MG CAPSULE PO (07:42)
[2024-08-09] MEDS: 0.9 % Sodium Chloride Flush 3 ML SYRINGE IVFLUSH (07:42)
--- NOTE | 2024-08-09 10:25 | PM.DS ---
DS: Providers Provider Date of Service: 08/09/24 Date of admission: 08/04/24 15:26 Date of discharge: 08/09/24 Primary care physician: Jose G Dickerson MD Consults: 08/05/24 08:03 Consult to Hematology / Oncology Routine Consulting Provider: [facility] [place] Oncology/Hematology Reason for consultation: T12 met 08/06/24 09:37 Consult to Infectious Diseases Routine Consulting Provider: [facility] [place] [facility] Reason for consultation: esbl uti + pna 08/07/24 09:23 Consult to Urology Routine Consulting Provider: [facility] [place] [facility] Reason for consultation: difficulty urinating; hx prostate CA 08/08/24 07:42 Consult to Nephrology Routine Consulting Provider: [facility] [place] [facility] Reason for consultation: CKD3. IR insists that nephro clear for midline placement DS: Diagnosis Discharge Diagnosis (1) Acute UTI: Status: Acute DS: Summary Hospital Course Hospital Course: History of presenting illness: Date of Service: 08/04/24 Attending physician on admission: Violetta Tinsley Chief Complaint: Leg weakness Pt is a 74-year-old male with a PMH significant for?CKD 3, prostate cancer with metastasis to bone s/p radiation, and chronic anemia who presents to the ED with?bilateral numbness, tingling, pain, and weakness in lower extremities since last night. Pt reports numbness and tingling most prominent in his upper thighs and pain in his lower back. Began last night and persisted this morning when he woke up and found he lacked the strength to get up out of bed. Pt chronically incontinent of urine, though complains of burning with urination for the past few days. Subjective fever and chills. Denies headache or acute vision changes. Has hx of chronic back pain but recently has not been problematic. Denies chest pain/pressure, palpitations. No nausea, vomiting, abdominal pain. Denies shortness or breath or difficulty breathing. In the ED pt was febrile up to 104.1, tachycardic up to 105, tachypneic up to 24, and soft BP as low as 104/50. Labs were significant for leukocytosis of 12.0, creatinine 2.48 (elevated from 1.87 on 06/30/2024), CRP 28.36, and procalcitonin 10.62. UA grossly infected. Tested negative for flu, COVID, RSV. CXR showed no acute airway disease.CT?of abdomen and pelvis concerning for inflammatory vs infectious process involving urinary bladder and urothelium of left urinary collecting system. Also showing blastic lesion of T12 and nonobstructing nephrolithiasis of right kidney. EKG demonstrated sinus tachycardia of 102 without evidence of significant ST elevations or depressions. Pt was treated with IVF, acetaminophen, and ceftriaxone. Pt will be admitted to the hospital for treatment and further evaluation of CRISTIANA in the setting of acute UTI with sepsis. Hospital course: 74yo M with CKD3, prostate CA metastatic to spine s/p XRT, chronic anemia presented with leg numbness, tingling, and weakness along with back pain admitted for sepsis due to UTI and CRISTIANA. Sepsis due to UTI and also pneumonia, UCx grew ESBL E. coli initially treated with ceftriaxone 08/04-08/06 subsequently transitioned to meropenem now being discharged on IV ertapenem 0.5 gm for total 10 days end date 08/16 as per ID recommendation, blood cultures x2 are negative, midline placed, PCT is trending down, also treated with doxycycline for pneumonia end date 08/11 , MRSA swab negative; urinary antigens for Legionella and pneumococcus pending. CRISTIANA/CKD3, treated with IV fluids renal function returned to baseline Prostate CA with known T12 blastic lesion, MR T-spine showed no evidence of epidural extension and no other suspicious bony lesions , treated with IV morphine and oxycodone for pain control, seen by Urology regarding difficulty urination started on Flomax 0.4 mg, MR lumbar spine obtained due to weakness left lower extremity, that showed less conspicuous osseous metastasis overall improved, no acute pathological fracture, multilevel spondylosis resulting in central spinal canal and bilateral neuroforaminal stenosis from L2 to L5. Recommend to continue analgesics and physical therapy. Chronic anemia stable continue Fe supplementation. Time Attestation Discharge Coordination Time (in mins): 40 Quality: Safe Use of Opioids Does Pt have an Active Cancer Diagnosis on the Problem List?: No Quality: Stroke Does the patient have a stroke diagnosis?: No Physical Exam Vital Signs: Vital Signs: Last Vital Signs Temp 98.7 F 08/09/24 07:29 Pulse 81 08/09/24 07:29 Resp 18 08/09/24 07:29 BP 129/61 08/09/24 07:29 Pulse Ox 94 08/09/24 07:29 O2 Del Method Room Air 08/09/24 07:29 O2 Flow Rate 2 08/06/24 03:03 BMI result Body Mass Index 22.2 Const: Other: Gen: in no acute distress HEENT: sclera anicteric, moist mucus membranes Neck: supple Lungs: diminished at bases bilaterally Heart: regular rate and rhythm, no murmurs Abd: soft, non-tender, non-distended, bowel sounds audible Ext: no edema Skin: warm/well-perfused Neuro: alert and oriented x3, decreased strength in hip flexors on L Psych: appropriate affect DS: Data Data Completed and Pending Completed studies during hospitalization [Text1]: Procedures Drainage of Scrotum, External Approach (03/04/22) Labs on day of discharge: Preliminary micro results at discharge 08/04/24 11:25 Blood Culture - Preliminary Blood - Venous No growth after 48 hours. 08/04/24 11:19 Blood Culture - Preliminary Blood - Venous No growth after 48 hours. Discharge Plan Discharge Anticipated Discharge Date/Time: 08/09/24 11:00 Patient Disposition: Xfer SNF Discharge Diagnosis: Sepsis due to UTI/pneumonia Acute on chronic kidney disease stage 3 Chronic anemia Referrals: [facility] [Other] - 1 Week Jose G Dickerson MD [Primary Care Provider] - 1 Week Discharge Medications: New Antacid Ext Str (calcium carb) 300 mg (750 mg) Tablet,Chewable 2.5 tab PO Q4H PRN (Reason: Heartburn) Qty: 30 0RF tamsulosin 0.4 mg Capsule 0.4 mg PO BEDTIME Qty: 90 0RF doxycycline monohydrate 100 mg Capsule 100 mg PO Q12H Qty: 5 0RF oxycodone 5 mg Tablet 5 mg PO Q4H PRN (Reason: Pain, Moderate(Pain Scale 4-6)) Qty: 20 0RF Rx Instructions: Partial Fill upon patient request. Continued ferrous gluconate 324 mg (38 mg iron) tablet 1 tab PO DAILY acetaminophen 500 mg Tablet 1,000 mg PO TID PRN (Reason: Fever Or Pain) Discharge Orders: Discharge Order (Routine); Ordered 08/09/24 Ordered By: Violetta Tinsley Diet: Advance to usual diet Activity on Discharge: As tolerated Stand Alone Forms: Patient Portal Discharge page Print Language: Armenian Care Plan Goals: UTI Take IV ertapenem 0.5 gm daily end date 08/16 for total 10 days started on 08/06 Doxycycline 1 tablet twice daily as ordered for pneumonia Difficulty urination resolved continue Flomax 0.4 mg daily Health Concerns: Chronic kidney disease/chronic anemia Prostate CA with known T12 blastic lesion Plan of Treatment: Outpatient follow-up with primary care physician and oncologist Dr. [place] call for appointment Assessment: As above
[2024-08-09] MEDS: Meropenem 1 GM VIAL IVPUSH (10:30)
--- NOTE | 2024-08-09 10:30 | HO.MIDLINE_ITS ---
Midline Insertion MIDLINE INSERTION Diagnosis: UTI Indication: 10 days of antibiotics Pertinent Labs: Reviewed Technique: Using sterile technique including cap and mask, glove and drape, the left arm was prepped and draped in the usual sterile fashion of full barrier technique with CHG. Using ultrasound guidance, the patent left brachial vein access was obtained single attempt by this RN. A 20 guage 8 cm Non-PASV midline was positioned. The procedure was performed in 272. Ultrasound was used to document vein patency and for needle entry. A formal ultrasound picture was recorded. Vascular Enrollment Representative has released the line for use and it is currently dressed with a StatLock, Tegaderm, and CHG disc. Verification has been performed for blood return and line patency. Arm Circumference: 20 cm Equipment: BARD PowerGlide ST Midline Catheter Catheter Type: 20 guage 8 cm Non-PASV midline Lot #: [id number]
--- NOTE | 2024-08-09 10:52 | MHC.CM.PN ---
pt to go to [facility] today at 2 pt will tell son
[2024-08-09 14:12] VITALS: BP 124/91; PULSE 113; RESP 17; TEMP 36.8; O2SAT 95
[2024-08-09 20:58] LABS: Strep Pneumo Ag urine Not Detected (Not Detected)
[2024-08-11 00:29] LABS: Legionella Ag Urine Not Detected (Not Detected)
== END 2024-08-09 14:16 | disposition skilled nursing facility (03) | DRG 871 ==
LOC: HO.ED 12:31 → HO.EDOVER 15:54 → HO.S3 08-05 07:23
PROVIDERS: Family Medicine; Internal Medicine Medical Oncology; Admitting Provider Student in an Organized Health Care Education/Training Program; Emergency Provider Emergency Medicine; PCP Internal Medicine Medical Oncology; Visit Provider Hospitalist
DX: A41.9 Sepsis, unspecified organism (principal); J18.9 Pneumonia, unspecified organism; C79.51 Secondary malignant neoplasm of bone; N17.9 Acute kidney failure, unspecified; Z16.12 Extended spectrum beta lactamase (ESBL) resistance; N39.0 Urinary tract infection, site not specified; N18.30 Chronic kidney disease, stage 3 unspecified; D63.1 Anemia in chronic kidney disease; F17.210 Nicotine dependence, cigarettes, uncomplicated; B96.20 Unspecified Escherichia coli [E. coli] as the cause of diseases classified elsewhere; C61 Malignant neoplasm of prostate; Z71.6 Tobacco abuse counseling; D63.0 Anemia in neoplastic disease; Z87.440 Personal history of urinary (tract) infections; Z20.822 Contact with and (suspected) exposure to COVID-19; Z79.899 Other long term (current) drug therapy
CPT/HCPCS: 0241U; 36410; 36415; 70450; 71045; 71046; 72157; 72158; 74176; 76775; 80048; 80076; 81001; 82040; 82570; 83605; 83690; 83735; 83880; 84145; 84153; 84300; 84484; 85025; 85027; 86140; 87040; 87086; 87088; 87186; 87449; 87640; 87641; 87899; 93005; 97162; 99285; A9585; C1894; J0131; J0696; J1650; J2185; J7120

== ENCOUNTER → 2024-08-04 11:08 | Outpatient (BNV) | payer MEDICARE, SELFPAY | PROVIDERS: Admitting Provider Student in an Organized Health Care Education/Training Program; Emergency Provider Emergency Medicine; PCP Internal Medicine Medical Oncology; Visit Provider Internal Medicine | DX: R00.0 Tachycardia, unspecified (principal) | CPT/HCPCS: 93010 ==

== ENCOUNTER → 2024-08-04 11:08 | Outpatient (BNV) | payer MEDICARE, SELFPAY | PROVIDERS: Emergency Provider Emergency Medicine; PCP Internal Medicine Medical Oncology; Visit Provider Radiology Diagnostic Radiology | DX: J18.9 Pneumonia, unspecified organism (principal); N39.0 Urinary tract infection, site not specified; N20.0 Calculus of kidney; M87.051 Idiopathic aseptic necrosis of right femur; M87.052 Idiopathic aseptic necrosis of left femur; M47.816 Spondylosis without myelopathy or radiculopathy, lumbar region | CPT/HCPCS: 71045; 74176 ==

== ENCOUNTER 2024-08-04 15:26 | Outpatient (BNV) | payer MEDICARE, SELFPAY | END 2024-08-06 10:29 | PROVIDERS: Admitting Provider Student in an Organized Health Care Education/Training Program; Emergency Provider Emergency Medicine; PCP Internal Medicine Medical Oncology; Visit Provider Radiology Diagnostic Radiology | DX: N28.1 Cyst of kidney, acquired (principal) | CPT/HCPCS: 76775 ==

== ENCOUNTER 2024-08-04 15:26 | Outpatient (BNV) | payer MEDICARE, SELFPAY | END 2024-08-08 14:40 | PROVIDERS: Admitting Provider Student in an Organized Health Care Education/Training Program; Emergency Provider Emergency Medicine; PCP Internal Medicine Medical Oncology; Visit Provider Radiology Diagnostic Radiology | DX: M47.816 Spondylosis without myelopathy or radiculopathy, lumbar region (principal); M99.63 Osseous and subluxation stenosis of intervertebral foramina of lumbar region | CPT/HCPCS: 72158 ==

== ENCOUNTER 2024-08-04 15:26 | Outpatient (BNV) | payer MEDICARE, SELFPAY | END 2024-08-05 13:50 | PROVIDERS: Admitting Provider Student in an Organized Health Care Education/Training Program; Emergency Provider Emergency Medicine; PCP Internal Medicine Medical Oncology; Visit Provider Radiology Diagnostic Radiology | DX: S09.90XA Unspecified injury of head, initial encounter (principal); W19.XXXA Unspecified fall, initial encounter; J18.9 Pneumonia, unspecified organism | CPT/HCPCS: 71046 ==

== ENCOUNTER → 2024-08-04 15:26 | Outpatient (BNV) | payer MEDICARE, SELFPAY | PROVIDERS: Admitting Provider Student in an Organized Health Care Education/Training Program; Emergency Provider Emergency Medicine; PCP Internal Medicine Medical Oncology; Visit Provider Internal Medicine | DX: C61 Malignant neoplasm of prostate (principal); C79.51 Secondary malignant neoplasm of bone; A41.9 Sepsis, unspecified organism | CPT/HCPCS: 99222 ==

== ENCOUNTER → 2024-08-04 15:26 | Outpatient (BNV) | payer MEDICARE, SELFPAY | PROVIDERS: Admitting Provider Student in an Organized Health Care Education/Training Program; Emergency Provider Emergency Medicine; PCP Internal Medicine Medical Oncology; Visit Provider Student in an Organized Health Care Education/Training Program | DX: N39.0 Urinary tract infection, site not specified (principal) | CPT/HCPCS: 99232; 99239 ==

== ENCOUNTER → 2024-08-04 15:26 | Outpatient (BNV) | payer MEDICARE, SELFPAY | PROVIDERS: Admitting Provider Student in an Organized Health Care Education/Training Program; Emergency Provider Emergency Medicine; PCP Internal Medicine Medical Oncology; Visit Provider Internal Medicine Nephrology | DX: N17.9 Acute kidney failure, unspecified (principal); N18.9 Chronic kidney disease, unspecified | CPT/HCPCS: 99222 ==

== ENCOUNTER → 2024-08-04 15:26 | Outpatient (BNV) | payer MEDICARE, SELFPAY | PROVIDERS: Admitting Provider Student in an Organized Health Care Education/Training Program; Emergency Provider Emergency Medicine; PCP Internal Medicine Medical Oncology; Visit Provider Internal Medicine Medical Oncology | DX: C61 Malignant neoplasm of prostate (principal) | CPT/HCPCS: 99222 ==

== ENCOUNTER 2024-09-16 13:42 | Outpatient (AMB) | payer MEDICARE, SELFPAY ==
--- OUTSIDE RECORDS SUMMARY | 2024-09-16 13:47 | XMS_ITS | Patient Health Record ---
Author Organization Jose G Dickerson III, MD Address [address] [place] [address] Care Team Providers Care Audio Visual Manager Name Role Phone Jose G Dickerson Primary Care Provider [phone] Allergies Allergen (clinical drug ingredient) Drug/Non Drug Allergy documented on EMR Reaction Allergy Type Onset Date Status No Known Drug Allergy Unknown Drug Allergy Active Results Component Value Reference Range Notes URINE DIP STICK Reviewed date:12/10/2023 06:11:36 AM Interpretation: Performing Lab: Notes/Report: SG 1.020 1.005 - 1.025 pH 5.0 5.0 - 9.0 ALDO 500 Negative - NIT Positive Negative - PRO 300 Negative - Trace GLU Negative Negative - KET Negative Negative - UBG 0.2 0.1 - 1.8 MASON Negative 0.2 - 1.3 BLD Positive Negative - Electrolytes Reviewed date:11/11/2023 11:17:03 AM Interpretation: Performing Lab:[facility], [address] [place] [phone] Notes/Report: Sodium 144 135-145 mmol/L Potassium 5.7 3.3-5.1 mmol/L Slight Hemoly sis Chloride 111 96-108 mmol/L Carbon Dioxide 26 22-29 mmol/L Anion Gap 13 12-20 Potassium Reviewed date:11/11/2023 11:17:03 AM Interpretation: Performing Lab:[facility], [address] [place] [phone] Notes/Report: Potassium 5.3 3.3-5.1 mmol/L Complete Blood Count Auto Di ff Reviewed date:12/07/2023 02:14:46 PM Interpretation: Performing Lab:[facility], [address] [place] [phone] Notes/Report: White Blood Count 7.0 4.8-10.8 X10*3/uL Red Blood Count 3.23 4.60-5.80 X10*6/uL Hemoglobin 9.2 14.0-18.0 g/dl Hematocrit 30.5 42.0-52.0 % Mean Corpuscular Volume 94.4 80.0-98.0 fL Mean Corpuscular Hemoglobin 28.5 27.0-33.0 pg Mean Corpuscular HGB Conc 30.2 31.0-36.0 g/dl Red Cell Distribution Width 14.1 11.0-16.0 % Platelet Count 324 160-400 X10*3/uL Mean Platelet Volume 9.2 9.4-12.4 fL Neutrophils Percent Auto 72.2 45-73 % Imm Gran Pct Auto 0.9 0.0-0.4 % Lymphocytes Percent Auto 11.9 20-40 % Monocytes Percent Auto 10.8 2-11 % Eosinophils Percent Auto 3.6 0-4 % Basophils Percent Auto 0.6 0-2 % NRBC Pct Auto 0.0 0.0-0.2 /100WBC Neutrophils Absolute Auto 5.0 2.0-8.3 x10*3/uL Imm Gran Abs Auto 0.06 0.00-0.03 X10*3/uL Lymphocytes Absolute Auto 0.8 1.2-4.9 X10*3/uL Monocytes Absolute Auto 0.8 0.1-1.2 X10*3/uL Eosinophils Absolute Auto 0.3 0.0-0.4 X10*3/uL Basophils Absolute Auto 0.0 0.0-0.2 X10*3/uL NRBC Abs Auto 0.000 0.0-0.012 X10*3/uL Comprehensive Met. Panel Reviewed date:12/07/2023 02:14:46 PM Interpretation: Performing Lab:[facility], [address] [place] [phone] Notes/Report: Sodium 141 135-145 mmol/L Potassium 5.1 3.3-5.1 mmol/L Chloride 111 96-108 mmol/L Carbon Dioxide 24 22-29 mmol/L Anion Gap 11 12-20 Blood Urea Nitrogen 29 9-16 mg/dL Creatinine 1.82 0.5-1.4 mg/dL Estimated Glomerular Filt Rate 36 NOTE: For -Citizen Of [place] individuals, multiply the result by 1.210. Chronic Kidney Disease: Estimated GFR < 60 mL/min/1.73m2 Severe Kidney Disease: Estimated GFR < 15 mL/min/1.73m2 Glucose Random 91 60-115 mg/dL Calcium 9.3 8.4-10.2 mg/dL Bilirubin Total 0.2 0.0-1.0 mg/dL Aspartate Amino Transferase 11 5-37 U/L Alanine Aminotransferase 10 0-40 U/L Total Protein 6.9 6.5-8.0 g/dL Albumin Level 3.8 3.5-5.0 g/dL Alkaline Phosphatase 96 39-117 U/L Ferritin Reviewed date:12/07/2023 02:14:46 PM Interpretation: Performing Lab:[address] [phone] Notes/Report: Ferritin 110 20-250 ng/mL Prostate Specific Antigen Reviewed date:12/07/2023 02:14:46 PM Interpretation: Performing Lab:[address] [phone] Notes/Report: Prostate Specific Antigen 0.25 <0.05-4.0 ng/mL PSA methodology: Dominguez Alinity i Chemiluminescent Microparticle Immunoassay (CMIA) NM bone scan whole body Reviewed date:03/23/2024 09:17:18 AM Interpretation: Performing Lab: Notes/Report: [address] [address] Nuclear Medicine Report Signed Patient: Maci Conley MR#: [id number] : 1950 Acct:[id number] Age/Sex: 73 / M ADM Date: 02/24/24 Loc: RACHID Attending Dr: David Montana MD Ordering Physician: David Montana MD Date of Service: 02/24/24 Procedure(s): NM bone scan whole body Accession Number(s): [id number] cc: Jose G Dickerson MD; David Montana MD EXAMINATION: NM BONE SCAN OF THE WHOLE BODY CLINICAL INFORMATION: A 73-year-old male with prostate cancer and bone max. Right lower back pain. COMPARISON: Most recent prior whole body bone scan done on 04/14/2022. TECHNIQUE: Multiple gamma scintillation camera images of the whole body were performed 3.25 hours following the intravenous administration of 22 mCi Tc-99m MDP. The radiotracer was injected through a right antecubital superficial vein without complications. FINDINGS: In the head, persistent focal asymmetric increased tracer activity seen projecting along the junction between the right nasal bone and adjacent part of the maxillary sinus, highly suspicious for evolving disease. Interval development of linear asymmetric intense increased tracer activity seen projecting in the region of the right-sided ramus of the mandible, also suspicious for progressive disease. In the thoracic cage and upper extremities, nonspecific periarticular increased tracer activity around both shoulder and sternoclavicular joints likely represent posttraumatic and/or arthritic changes, appear similar. In the spine, previously documented intense focal increased tracer activity centering over T12 vertebral body persist however, the intensity of tracer activity has decreased since 04/14/2022. Mild nonspecific increased tracer activity within the remainder of the lumbar spine, appear similar. In the pelvis, no definite increased tracer activity. Significant urinary contamination is noted. The patient apparently is incontinent. In the lower extremities, periarticular increased tracer activity at both knees and both feet likely represent nonspecific posttraumatic and/or arthritic changes, appear unchanged. No other definite bony abnormalities are noted. The urinary bladder and faint visualization of both kidneys are noted. NM/NM bone scan whole body IMPRESSION: Compared to most recent prior whole body bone scan dated 04/14/2022: 1. 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 2. Persistent stable asymmetric increased tracer activity projecting in the region of the right-sided face consistent with stable disease. 3. Intensity of tracer activity at T12 vertebral body has decreased, consistent with likely interval healing. 4. No other significant interval change. Electronically signed by: Dusty Thompson MD 03/16/2024 12:32 PM [facility] Dictated By: Dusty Thompson MD Signed By: <Electronically signed by Dusty Thompson MD in OV> 03/16/24 1232 DD/ 1042 TD/TT: 02/24/24 1525 Metal Finish Inspector: SANJAY [place] [address] Nuclear Medicine Report Signed Patient: Jose D Conley MR#: [id number] : 1950 Acct:[id number] Age/Sex: 73 / M ADM Date: 02/24/24 Loc: RACHID Attending Dr: Laura Montana MD Ordering Physician: David Montana MD Date of Service: 02/24/24 Procedure(s): NM bon e scan whole body Accession Number(s): [id number] cc: Jose G Dickerson MD; David Montana MD EXAMINATION: NM BONE SCAN OF THE WHOLE BODY CLINICAL INFORMATION: A 73-year-old male w ith prostate cancer and bone max. Right lower back pain. COMPARISON: Most recent prior ole body bone scan done on 04/14/2022. TECHNIQUE: Multiple gamma scintillation camera images of the whole body were performed 3.25 hours following the intravenous administration of 22 mCi Tc-99m MDP. The radiotracer was injected through a right antecubital superficial vein wit hout complications. FINDINGS: In the head, persist ent focal asymmetric increased tracer activity seen projecting along the junction between the right nasal bone and adjacent part of the maxillar y sinus, highly suspicious for evolving disease. Interval development of linear asymmetric intense increased tracer activity seen projec ting in the region of the right-sided ramus of the mandible, also suspi cious for progressive disease. In the thoracic cage and upper extremities, nonspecific periarticular increased tracer act ivity around both shoulder and sternoclavicular joints likely repres ent posttraumatic and/or arthritic changes, appear similar. In the spine, previo usly documented intense focal increased tracer activity centering o blake T12 vertebral body persist however, the intensity of tracer activity has decreased since 04/14/2022. Mild nonspecific increase d tracer activity within the remainder of the lumbar spine, appear similar. In the pelvis, no definite increased tracer activity. Significant urinary contaminatio n is noted. The patient apparently is incontinent. In the lower extremi ties, periarticular increased tracer activity at both knees and both feet likely represent nonspecific posttraumatic and/or arthritic eri nges, appear unchanged. No other definite carmen ny abnormalities are noted. The urinary bladder and faint visualization of both kidneys are noted. N M/NM bone scan whole body IMPRESSION: Compared to most recent prior whole body bone scan dated 04/14/2022: 1. Interval developm ent of linear increased asymmetric tracer activity is present projectin g in the region of the right-sided ramus of the mandible, highly suspicious for interval disease progression in this patient with metasta tic bone disease from prostate cancer. 2. Persistent stable asymmetric increased tracer activity projecting in the region of the right-sided face consistent with stable disease. 3. Intensity of trac er activity at T12 vertebral body has decreased, consistent with like ly interval healing. 4. No other signific ant interval change. Electronically kalyan d by: Dusty Thompson MD 03/16/2024 12:32 PM EST Dictated By: Dusty Thompson MD Signed By: <Electronically signed by Dusty Thompson MD in OV> 03/16/24 1232 DD/ 1042 TD/TT: 02/24/24 1525 Metal Finish Inspector: SANJAY Complete Blood Count Auto Di ff Reviewed date:03/23/2024 09:17:17 AM Interpretation: Performing Lab:[facility], [address] [place] [phone] Notes/Report: White Blood Count 6.8 4.8-10.8 X10*3/uL Red Blood Count 3.45 4.60-5.80 X10*6/uL Hemoglobin 9.8 14.0-18.0 g/dl Hematocrit 32.6 42.0-52.0 % Mean Corpuscular Volume 94.5 80.0-98.0 fL Mean Corpuscular Hemoglobin 28.4 27.0-33.0 pg Mean Corpuscular HGB Conc 30.1 31.0-36.0 g/dl Red Cell Distribution Width 13.1 11.0-16.0 % Platelet Count 240 160-400 X10*3/uL Mean Platelet Volume 9.3 9.4-12.4 fL Neutrophils Percent Auto 69.5 45-73 % Imm Gran Pct Auto 0.4 0.0-0.4 % Lymphocytes Percent Auto 14.9 20-40 % Monocytes Percent Auto 8.9 2-11 % Eosinophils Percent Auto 5.6 0-4 % Basophils Percent Auto 0.7 0-2 % NRBC Pct Auto 0.0 0.0-0.2 /100WBC Neutrophils Absolute Auto 4.7 2.0-8.3 x10*3/uL Imm Gran Abs Auto 0.03 0.00-0.03 X10*3/uL Lymphocytes Absolute Auto 1.0 1.2-4.9 X10*3/uL Monocytes Absolute Auto 0.6 0.1-1.2 X10*3/uL Eosinophils Absolute Auto 0.4 0.0-0.4 X10*3/uL Basophils Absolute Auto 0.1 0.0-0.2 X10*3/uL NRBC Abs Auto 0.000 0.0-0.012 X10*3/uL Comprehensive Met. Panel Reviewed date:03/23/2024 09:17:18 AM Interpretation: Performing Lab:[facility], [address] [place] [phone] Notes/Report: Sodium 143 135-145 mmol/L Potassium 5.2 3.3-5.1 mmol/L Chloride 110 96-108 mmol/L Carbon Dioxide 28 22-29 mmol/L Anion Gap 10 12-20 Blood Urea Nitrogen 36 9-16 mg/dL Creatinine 2.12 0.5-1.4 mg/dL Estimated Glomerular Filt Rate 31 Chronic Kidney Disease: Estimated GFR < 60 mL/min/1.73m2 Severe Kidney Disease: Estimated GFR < 15 mL/min/1.73m2 Glucose Random 98 60-115 mg/dL Calcium 9.0 8.4-10.2 mg/dL Bilirubin Total 0.2 0.0-1.0 mg/dL Aspartate Amino Transferase 19 5-37 U/L Alanine Aminotransferase 11 0-40 U/L Total Protein 6.7 6.5-8.0 g/dL Albumin Level 3.9 3.5-5.0 g/dL Alkaline Phosphatase 69 39-117 U/L Ferritin Reviewed date:03/23/2024 09:17:18 AM Interpretation: Performing Lab:[facility], [address] [place] [phone] Notes/Report: Ferritin 15 20-250 ng/mL Prostate Specific Antigen Reviewed date:03/23/2024 09:17:18 AM Interpretation: Performing Lab:[facility], [address] [place] [phone] Notes/Report: Prostate Specific Antigen 0.13 <0.05-4.0 ng/mL PSA methodology: Dominguez Alinity i Chemiluminescent Microparticle Immunoassay (CMIA) Vitamin B12 Reviewed date:03/23/2024 09:17:18 AM Interpretation: Performing Lab:[facility], [address] [place] [phone] Notes/Report: Vitamin B12 665 200-900 pg/mL NORMAL 200-900 PG/ML INDETERMINATE 160-199 PG/ML DEFICIENT < 160 PG/ML XR mandible min 4V Reviewed date:04/24/2024 08:39:55 PM Interpretation: Performing Lab: Notes/Report: [address] [place] [address] XRay Report Signed Patient: Maci Conley MR#: [id number] : 1950 Acct:[id number] Age/Sex: 74 / M ADM Date: 04/16/24 Loc: HO.JAIROAY Attending Dr: Jose G Dickerson MD Ordering Physician: Jose G Dickerson MD Date of Service: 04/16/24 Procedure(s): XR mandible min 4V Accession Number(s): [id number] cc: Jose G Dickerson MD EXAMINATION: XR MANDIBLE CLINICAL INFORMATION: OSTEONECROSIS VS. METASTATIC PROSTATE COMPARISON: Bone scan 02/24/2024 TECHNIQUE: 4 views of the mandible were obtained. FINDINGS: No obvious bone lesion in the region of the right mandibular angle to correspond with the radiotracer uptake on the recent bone scan. XR/XR mandible min 4V IMPRESSION: No obvious bone lesion in the region of the right mandibular angle. Consider further evaluation with CT. Electronically signed by: Davion Upton MD 04/18/2024 11:29 AM [facility] Dictated By: Davion Upton MD Signed By: <Electronically signed by Davion Upton MD in OV> 04/18/24 1129 DD/ TD/TT: 04/16/2455 Metal Finish Inspector: CATHY [address] [address] XRay Report Signed Patient: Jose D Conley MR#: [id number] : 1950 Acct:[id number] Age/Sex: 74 / M ADM Date: 04/16/24 Loc: HO.XRAY Attending Dr: Jose G Dickerson MD Ordering Physician: Jose G Dickerson MD Date of Service: 04/16/24 Procedure(s): XR man dible min 4V Accession Number(s): [id number] cc: Jose G Dickerson MD EXAMINATION: XR MANDIBLE CLINICAL INFORMATION: OSTEONECROSIS VS. METASTATIC PROSTATE COMPARISON: Bone scan 02/24/2024 TECHNIQUE: 4 views of the betsey ble were obtained. FINDINGS: No obvious bone lesi on in the region of the right mandibular angle to correspond with the radiotracer uptake on the recent bone scan. X R/XR mandible min 4V IMPRESSION: No obvious bone lesi on in the region of the right mandibular angle. Consider further evaluation with CT. Electronically kalyan d by: Davion Upton MD 04/18/2024 11:29 AM [facility] Dictated By: Davion Upton MD Signed By: <Electronically signed by Davion Upton MD in OV> 04/18/24 1129 DD/ TD/TT: 04/16/24 0955 Metal Finish Inspector: CATHY Complete Blood Count Auto Di ff Reviewed date:07/01/2024 06:26:39 AM Interpretation: Performing Lab:[facility], [address] [place] [phone] Notes/Report: White Blood Count 7.1 4.8-10.8 X10*3/uL Red Blood Count 3.51 4.60-5.80 X10*6/uL Hemoglobin 9.9 14.0-18.0 g/dl Hematocrit 33.1 42.0-52.0 % Mean Corpuscular Volume 94.3 80.0-98.0 fL Mean Corpuscular Hemoglobin 28.2 27.0-33.0 pg Mean Corpuscular HGB Conc 29.9 31.0-36.0 g/dl Red Cell Distribution Width 13.7 11.0-16.0 % Platelet Count 235 160-400 X10*3/uL Mean Platelet Volume 9.5 9.4-12.4 fL Neutrophils Percent Auto 72.0 45-73 % Imm Gran Pct Auto 0.4 0.0-0.4 % Lymphocytes Percent Auto 13.3 20-40 % Monocytes Percent Auto 8.6 2-11 % Eosinophils Percent Auto 4.9 0-4 % Basophils Percent Auto 0.8 0-2 % NRBC Pct Auto 0.0 0.0-0.2 /100WBC Neutrophils Absolute Auto 5.1 2.0-8.3 x10*3/uL Imm Gran Abs Auto 0.03 0.00-0.03 X10*3/uL Lymphocytes Absolute Auto 0.9 1.2-4.9 X10*3/uL Monocytes Absolute Auto 0.6 0.1-1.2 X10*3/uL Eosinophils Absolute Auto 0.4 0.0-0.4 X10*3/uL Basophils Absolute Auto 0.1 0.0-0.2 X10*3/uL NRBC Abs Auto 0.000 0.0-0.012 X10*3/uL Comprehensive Met. Panel Reviewed date:07/01/2024 06:26:39 AM Interpretation: Performing Lab:[facility], [address] [place] [phone] Notes/Report: Sodium 142 135-145 mmol/L Potassium 5.1 3.3-5.1 mmol/L Chloride 111 96-108 mmol/L Carbon Dioxide 25 22-29 mmol/L Anion Gap 11 12-20 Blood Urea Nitrogen 30 9-16 mg/dL Creatinine 1.87 0.5-1.4 mg/dL Estimated Glomerular Filt Rate 35 Chronic Kidney Disease: Estimated GFR < 60 mL/min/1.73m2 Severe Kidney Disease: Estimated GFR < 15 mL/min/1.73m2 Glucose Random 95 60-115 mg/dL Calcium 8.6 8.4-10.2 mg/dL Bilirubin Total 0.2 0.0-1.0 mg/dL Aspartate Amino Transferase 18 5-37 U/L Alanine Aminotransferase 10 0-40 U/L Total Protein 7.0 6.5-8.0 g/dL Albumin Level 3.8 3.5-5.0 g/dL Alkaline Phosphatase 62 39-117 U/L Ferritin Reviewed date:07/01/2024 06:26:39 AM Interpretation: Performing Lab:[facility], [address] [place] [phone] Notes/Report: Ferritin 32 20-250 ng/mL Prostate Specific Antigen Reviewed date:07/01/2024 06:26:39 AM Interpretation: Performing Lab:[facility], [address] [place] [phone] Notes/Report: Prostate Specific Antigen 0.12 <0.05-4.0 ng/mL PSA methodology: Dominguez Alinity i Chemiluminescent Microparticle Immunoassay (CMIA) Vitamin B12 Reviewed date:07/01/2024 06:26:39 AM Interpretation: Performing Lab:[facility], [address] [place] [phone] Notes/Report: Vitamin B12 797 200-900 pg/mL NORMAL 200-900 PG/ML INDETERMINATE 160-199 PG/ML DEFICIENT < 160 PG/ML Gram stain Reviewed date:07/11/2024 06:13:00 AM Interpretation: Performing Lab:[facility], [address] [place] [phone] Notes/Report: Gram stain Gram stain results: Gram stain 2+ polys Gram stain 1+ Gram-positive cocci Routine Culture Reviewed date:07/11/2024 06:13:00 AM Interpretation: Performing Lab:[facility], [address] [place] [phone] Notes/Report: Routine Culture Report - external Routine Culture 1+ Mixed skin zander US abdominal aortic aneurysm Reviewed date:08/05/2024 03:27:00 PM Interpretation: Performing Lab: Notes/Report: [address] [address] Ultrasound Report Signed Patient: Maci Conley MR#: [id number] : 1950 Acct:[id number] Age/Sex: 74 / M ADM Date: 07/19/24 Loc: .US Attending Dr: Ricky Rendon MD Ordering Physician: Ricky Rendon MD Date of Service: 07/19/24 Procedure(s): US abdominal aortic aneurysm Accession Number(s): [id number] cc: Jose G Dickerson MD; Ricky Rendon MD EXAMINATION: Noninvasive assessment of the bilateral lower extremities with ARTERIAL DUPLEX, ANKLE BRACHIAL INDICES (ABIs), and PULSE VOLUME RECORDINGS (PVRs). CLINICAL INFORMATION: Peripheral vascular disease, unspecified. TECHNIQUE: Duplex Doppler techniques with waveform analysis and measurement of velocities in the bilateral common femoral, profunda femoris, superficial femoral, popliteal and tibial arteries were performed. Additionally, ankle pulse volume recordings, ankle pressure measurements and ankle brachial indices were obtained of the lower extremity arterial system bilaterally. The study was performed only at rest. COMPARISON: None FINDINGS: DIRECT DUPLEX DOPPLER FINDINGS: RIGHT LEG: Common femoral artery: 171 cm/s, phasicity: Monophasic. Spectral broadening. Profunda femoris artery: 40 cm/s, phasicity: Monophasic. Spectral broadening. Superficial femoral artery (proximal): 43 cm/s, phasicity: Monophasic. Spectral broadening. Superficial femoral artery (mid): 45 cm/s, phasicity: Monophasic. Superficial femoral artery (distal): 17 cm/s, phasicity: Monophasic. Popliteal artery: 35 cm/s, phasicity: Monophasic. Posterior tibial artery: 56 cm/s, phasicity: Monophasic. Peroneal artery: 14 cm/s, phasicity: Monophasic. Anterior tibial artery: 17 cm/s, phasicity: Monophasic. Dorsalis pedis artery: 16 cm/s, phasicity:Monophasic. Spectral broadening. LEFT LEG: Common femoral artery: 374 cm/s, phasicity: Biphasic. Spectral broadening. Profunda femoris artery: 88 cm/s, phasicity: Biphasic. Spectral broadening. Superficial femoral artery (proximal): 67 cm/s, phasicity: Biphasic. Superficial femoral artery (mid): 88 cm/s, phasicity: Biphasic. Superficial femoral artery (distal): 110 cm/s, phasicity: Biphasic. Popliteal artery: 65 cm/s, phasicity: Biphasic. Posterior tibial artery: 29 cm/s, phasicity: Monophasic. Spectral broadening. Peroneal artery: 22 cm/s, phasicity: Monophasic. Spectral broadening. Anterior tibial artery: 88 cm/s, phasicity: Biphasic. Spectral broadening. Dorsalis pedis artery: 29 cm/s, phasicity: Biphasic. Spectral broadening. BRACHIAL PRESSURES: Right: 139 Left: 150 ANKLE PRESSURES: Right: PT 113, DP 101 Left: PT 151, DP 138 ANKLE-BRACHIAL INDEX: Right: 0.75 Left: 1.01 ANKLE PVR WAVEFORMS: Right: Abnormal. Left: Abnormal. Abdominal aorta peak systolic diameter and velocities as follow: Proximal: 3.1 cm and 69 cm/s. Mid: 2.4 cm and 60 cm/s. Distal: 2.0 cm and 60 cm/s. Right iliac artery peak systolic velocity: Common: 64 cm/s. External: 54 cm/s. Left iliac artery peak systolic velocity: Common: 16 cm/s. External: 291 cm/s. US/US abdominal aortic aneurysm IMPRESSION: Right leg: Severe inflow disease in the right lower extremity. Left leg: Moderate to severe inflow disease in the left lower extremity. RAUL Reference: - >1.4 = calcified vessels - 0.9 - 1.4 = normal - no significant arterial disease - 0.7 - 0.89 = mild peripheral arterial disease - 0.51 - 0.69 = moderate peripheral arterial disease - d 0.50 = severe peripheral arterial disease - < .30 = critical arterial disease Electronically signed by: Hugo Ralph MD 07/20/2024 10:40 AM EDT Dictated By: Hugo Callejas MD Signed By: <Electronically signed by Hugo Haider MD in OV> 07/21/24 1217 DD/ 1303 TD/TT: 07/19/24 1406 Metal Finish Inspector: [place] [address] Ultrasound Report Signed Patient: Jose D Conley MR#: [id number] : 1950 Acct:[id number] Age/Sex: 74 / M ADM Date: 07/19/24 Loc: HO.US Attending Dr: Ricky Rendon MD Ordering Physician: Ricky Rendon MD Date of Service: 07/19/24 Procedure(s): US abdominal aortic aneurysm Accession Number(s): [id number] cc: Jose G Dickerson MD; Ricky Rendon MD EXAMINATION: Noninvasive assessme nt of the bilateral lower extremities with ARTERIAL DUPLEX, ANKLE BRACHI AL INDICES (ABIs), and PULSE VOLUME RECORDINGS (PVRs). CLINICAL INFORMATION: Peripheral vascular disease, unspecified. TECHNIQUE: Duplex Doppler techn iques with waveform analysis and measurement of velocities in the bilateral common femoral, profunda femoris, superficial femoral, popliteal and tibial arteries were performed. Additionally, ankle pulse volume recordings, ankle pressure measurements and ank le brachial indices were obtained of the lower extremity arterial s ystem bilaterally. The study was performed only at rest. COMPARISON: None FINDINGS: DIRECT DUPLEX DOPPLE R FINDINGS: RIGHT LEG: Common femoral arter y: 171 cm/s, phasicity: Monophasic. Spectral broadening. Profunda femoris art victor m: 40 cm/s, phasicity: Monophasic. Spectral broadening. Superficial femoral artery (proximal): 43 cm/s, phasicity: Monophasic. Spectral broadening. Superficial femoral artery (mid): 45 cm/s, phasicity: Monophasic. Superficial femoral artery (distal): 17 cm/s, phasicity: Monophasic. Popliteal artery: 35 cm/s, phasicity: Monophasic. Posterior tibial art victor m: 56 cm/s, phasicity: Monophasic. Peroneal artery: 14 cm/s, phasicity: Monophasic. Anterior tibial alan ry: 17 cm/s, phasicity: Monophasic. Dorsalis pedis arter y: 16 cm/s, phasicity:Monophasic. Spectral broadening. LEFT LEG: Common femoral arter y: 374 cm/s, phasicity: Biphasic. Spectral broadening. Profunda femoris art victor m: 88 cm/s, phasicity: Biphasic. Spectral broadening. Superficial femoral artery (proximal): 67 cm/s, phasicity: Biphasic. Superficial femoral artery (mid): 88 cm/s, phasicity: Biphasic. Superficial femoral artery (distal): 110 cm/s, phasicity: Biphasic. Popliteal artery: 65 cm/s, phasicity: Biphasic. Posterior tibial art victor m: 29 cm/s, phasicity: Monophasic. Spectral broadening. Peroneal artery: 22 cm/s, phasicity: Monophasic. Spectral broadening. Anterior tibial alan ry: 88 cm/s, phasicity: Biphasic. Spectral broadening. Dorsalis pedis arter y: 29 cm/s, phasicity: Biphasic. Spectral broadening. BRACHIAL PRESSURES: Right: 139 Left: 150 ANKLE PRESSURES: Right: PT 113, DP 101 Left: PT 151, DP 138 ANKLE-BRACHIAL INDEX: Right: 0.75 Left: 1.01 ANKLE PVR WAVEFORMS: Right: Abnormal. Left: Abnormal. Abdominal aorta peak systolic diameter and velocities as follow: Proximal: 3.1 cm and 69 cm/s. Mid: 2.4 cm and 60 cm/s. Distal: 2.0 cm and 6 0 cm/s. Right iliac artery p eak systolic velocity: Common: 64 cm/s. External: 54 cm/s. Left iliac artery pe ak systolic velocity: Common: 16 cm/s. External: 291 cm/s. U S/US abdominal aortic aneurysm IMPRESSION: Right leg: Severe in flow disease in the right lower extremity. Left leg: Moderate t o severe inflow disease in the left lower extremity. RAUL Reference: - >1.4 = calcified vessels - 0.9 - 1.4 = normal - no significant arterial disease - 0.7 - 0.89 = mild peripheral arterial disease - 0.51 - 0.69 = mode rate peripheral arterial disease - d 0.50 = severe peripheral arterial disease - < .30 = critical arterial disease Electronically kalyan d by: Hugo Ralph MD 07/20/2024 10:40 AM EDT Dictated By: Hugo Huston MD Signed By: <Electronically signed by Hugo Haider MD in OV> 07/21/24 1217 DD/ 1303 TD/TT: 07/19/24 1406 Metal Finish Inspector: US arterial duplex BI w/ RAUL Reviewed date:08/05/2024 03:27:00 PM Interpretation: Performing Lab: Notes/Report: [address] [address] Ultrasound Report Signed Patient: Maci Conley MR#: [id number] : 1950 Acct:[id number] Age/Sex: 74 / M ADM Date: 07/19/24 Loc: HO.US Attending Dr: Ricky Rendon MD Ordering Physician: Ricky Rendon MD Date of Service: 07/19/24 Procedure(s): US arterial duplex BI w/ RAUL Accession Number(s): [id number] cc: Jose G Dickerson MD; Ricky Rendon MD EXAMINATION: Noninvasive assessment of the bilateral lower extremities with ARTERIAL DUPLEX, ANKLE BRACHIAL INDICES (ABIs), and PULSE VOLUME RECORDINGS (PVRs). CLINICAL INFORMATION: Peripheral vascular disease, unspecified. TECHNIQUE: Duplex Doppler techniques with waveform analysis and measurement of velocities in the bilateral common femoral, profunda femoris, superficial femoral, popliteal and tibial arteries were performed. Additionally, ankle pulse volume recordings, ankle pressure measurements and ankle brachial indices were obtained of the lower extremity arterial system bilaterally. The study was performed only at rest. COMPARISON: None FINDINGS: DIRECT DUPLEX DOPPLER FINDINGS: RIGHT LEG: Common femoral artery: 171 cm/s, phasicity: Monophasic. Spectral broadening. Profunda femoris artery: 40 cm/s, phasicity: Monophasic. Spectral broadening. Superficial femoral artery (proximal): 43 cm/s, phasicity: Monophasic. Spectral broadening. Superficial femoral artery (mid): 45 cm/s, phasicity: Monophasic. Superficial femoral artery (distal): 17 cm/s, phasicity: Monophasic. Popliteal artery: 35 cm/s, phasicity: Monophasic. Posterior tibial artery: 56 cm/s, phasicity: Monophasic. Peroneal artery: 14 cm/s, phasicity: Monophasic. Anterior tibial artery: 17 cm/s, phasicity: Monophasic. Dorsalis pedis artery: 16 cm/s, phasicity:Monophasic. Spectral broadening. LEFT LEG: Common femoral artery: 374 cm/s, phasicity: Biphasic. Spectral broadening. Profunda femoris artery: 88 cm/s, phasicity: Biphasic. Spectral broadening. Superficial femoral artery (proximal): 67 cm/s, phasicity: Biphasic. Superficial femoral artery (mid): 88 cm/s, phasicity: Biphasic. Superficial femoral artery (distal): 110 cm/s, phasicity: Biphasic. Popliteal artery: 65 cm/s, phasicity: Biphasic. Posterior tibial artery: 29 cm/s, phasicity: Monophasic. Spectral broadening. Peroneal artery: 22 cm/s, phasicity: Monophasic. Spectral broadening. Anterior tibial artery: 88 cm/s, phasicity: Biphasic. Spectral broadening. Dorsalis pedis artery: 29 cm/s, phasicity: Biphasic. Spectral broadening. BRACHIAL PRESSURES: Right: 139 Left: 150 ANKLE PRESSURES: Right: PT 113, DP 101 Left: PT 151, DP 138 ANKLE-BRACHIAL INDEX: Right: 0.75 Left: 1.01 ANKLE PVR WAVEFORMS: Right: Abnormal. Left: Abnormal. Abdominal aorta peak systolic diameter and velocities as follow: Proximal: 3.1 cm and 69 cm/s. Mid: 2.4 cm and 60 cm/s. Distal: 2.0 cm and 60 cm/s. Right iliac artery peak systolic velocity: Common: 64 cm/s. External: 54 cm/s. Left iliac artery peak systolic velocity: Common: 16 cm/s. External: 291 cm/s. US/US arterial duplex BI w/ RAUL IMPRESSION: Right leg: Severe inflow disease in the right lower extremity. Left leg: Moderate to severe inflow disease in the left lower extremity. RAUL Reference: - >1.4 = calcified vessels - 0.9 - 1.4 = normal - no significant arterial disease - 0.7 - 0.89 = mild peripheral arterial disease - 0.51 - 0.69 = moderate peripheral arterial disease - d 0.50 = severe peripheral arterial disease - < .30 = critical arterial disease Electronically signed by: Hugo Ralph MD 07/20/2024 10:40 AM EDT Dictated By: Hugo Callejas MD Signed By: <Electronically signed by Hugo Haider MD in OV> 07/21/24 1217 DD/ 1303 TD/TT: 07/19/24 1406 Metal Finish Inspector: [place] [address] Ultrasound Report Signed Patient: Jose D Conley MR#: [id number] : 1950 Acct:[id number] Age/Sex: 74 / M ADM Date: 07/19/24 Loc: HO.US Attending Dr: Ricky Rendon MD Ordering Physician: Ricky Rendon MD Date of Service: 07/19/24 Procedure(s): US art erial duplex BI w/ RAUL Accession Number(s): [id number] cc: Jose G Dickerson MD; Ricky Rendon MD EXAMINATION: Noninvasive assessme nt of the bilateral lower extremities with ARTERIAL DUPLEX, ANKLE BRACHI AL INDICES (ABIs), and PULSE VOLUME RECORDINGS (PVRs). CLINICAL INFORMATION: Peripheral vascular disease, unspecified. TECHNIQUE: Duplex Doppler techn iques with waveform analysis and measurement of velocities in the bilateral common femoral, profunda femoris, superficial femoral, popliteal and tibial arteries were performed. Additionally, ankle pulse volume recordings, ankle pressure measurements and ank le brachial indices were obtained of the lower extremity arterial s ystem bilaterally. The study was performed only at rest. COMPARISON: None FINDINGS: DIRECT DUPLEX DOPPLE R FINDINGS: RIGHT LEG: Common femoral arter y: 171 cm/s, phasicity: Monophasic. Spectral broadening. Profunda femoris art victor m: 40 cm/s, phasicity: Monophasic. Spectral broadening. Superficial femoral artery (proximal): 43 cm/s, phasicity: Monophasic. Spectral broadening. Superficial femoral artery (mid): 45 cm/s, phasicity: Monophasic. Superficial femoral artery (distal): 17 cm/s, phasicity: Monophasic. Popliteal artery: 35 cm/s, phasicity: Monophasic. Posterior tibial art victor m: 56 cm/s, phasicity: Monophasic. Peroneal artery: 14 cm/s, phasicity: Monophasic. Anterior tibial alan ry: 17 cm/s, phasicity: Monophasic. Dorsalis pedis arter y: 16 cm/s, phasicity:Monophasic. Spectral broadening. LEFT LEG: Common femoral arter y: 374 cm/s, phasicity: Biphasic. Spectral broadening. Profunda femoris art victor m: 88 cm/s, phasicity: Biphasic. Spectral broadening. Superficial femoral artery (proximal): 67 cm/s, phasicity: Biphasic. Superficial femoral artery (mid): 88 cm/s, phasicity: Biphasic. Superficial femoral artery (distal): 110 cm/s, phasicity: Biphasic. Popliteal artery: 65 cm/s, phasicity: Biphasic. Posterior tibial art victor m: 29 cm/s, phasicity: Monophasic. Spectral broadening. Peroneal artery: 22 cm/s, phasicity: Monophasic. Spectral broadening. Anterior tibial alan ry: 88 cm/s, phasicity: Biphasic. Spectral broadening. Dorsalis pedis arter y: 29 cm/s, phasicity: Biphasic. Spectral broadening. BRACHIAL PRESSURES: Right: 139 Left: 150 ANKLE PRESSURES: Right: PT 113, DP 101 Left: PT 151, DP 138 ANKLE-BRACHIAL INDEX: Right: 0.75 Left: 1.01 ANKLE PVR WAVEFORMS: Right: Abnormal. Left: Abnormal. Abdominal aorta peak systolic diameter and velocities as follow: Proximal: 3.1 cm and 69 cm/s. Mid: 2.4 cm and 60 cm/s. Distal: 2.0 cm and 6 0 cm/s. Right iliac artery p eak systolic velocity: Common: 64 cm/s. External: 54 cm/s. Left iliac artery pe ak systolic velocity: Common: 16 cm/s. External: 291 cm/s. U S/ arterial duplex BI w/ RAUL IMPRESSION: Right leg: Severe in flow disease in the right lower extremity. Left leg: Moderate t o severe inflow disease in the left lower extremity. RAUL Reference: - >1.4 = calcified vessels - 0.9 - 1.4 = normal - no significant arterial disease - 0.7 - 0.89 = mild peripheral arterial disease - 0.51 - 0.69 = mode rate peripheral arterial disease - d 0.50 = severe peripheral arterial disease - < .30 = critical arterial disease Electronically kalyan d by: Hugo Ralph MD 07/20/2024 10:40 AM EDT Dictated By: Hugo Huston MD Signed By: <Electronically signed by Hugo Haider MD in OV> 07/21/24 1217 DD/ 1303 TD/TT: 07/19/24 1406 Metal Finish Inspector: Urine Culture Reviewed date:08/11/2024 08:13:59 PM Interpretation: Performing Lab:[facility], [address] [place] [id number] Notes/Report: O:ESCCOL Escherichia coli Urine Culture ESBL Note: Urine Culture NOTE: Extended-Spect rum Beta-Lactamase enzyme present Urine Culture Quant Urine Culture > 100,000 cfu/mL O:STAEPI Staphylococcus epidermidis Urine Culture Quant Urine Culture 10,000 to 50,000 cfu/mL Ampicillin >=32 Cefazolin (Urine) >=32 Cefepime 16 Ceftriaxone >=64 Ciprofloxacin 0.5 Ertapenem <=0.12 Gentamicin >=16 Nitrofurantoin <=16 Trimethoprim/Sulfamethox azole >=320 Clindamycin >=8 Erythromycin >=8 Nitrofurantoin <=16 Oxacillin >=4 Penicillin-G >=0.5 Tetracycline >=16 Trimethoprim/Sulfamethox azole >=[address] abdomen pelvis wo con Reviewed date:08/05/2024 03:27:00 PM Interpretation: Performing Lab: Notes/Report: [address] [address] [address] Scan Report Signed Patient: Maci Conley MR#: [id number] : 1950 Acct:[id number] Age/Sex: 74 / M ADM Date: 08/04/24 Loc: HO.ED Attending Dr: Ordering Physician: Bettie Suarez DO Date of Service: 08/04/24 Procedure(s): CT abdomen pelvis wo IV con Accession Number(s): [id number] cc: Jose G Dickerson MD; Bettie Suarez DO Report Number: [id number]: Total DLP = 411.00 mGy-cm EXAMINATION: CT ABDOMEN AND PELVIS WITHOUT CONTRAST CLINICAL INFORMATION: Right flank pain. COMPARISON: March 04, 2022. TECHNIQUE: Multidetector volumetric imaging was performed from the superior aspect of the liver through the pubic symphysis. Sagittal and coronal reformatted images were obtained on the technologist's workstation. This CT examination was performed using dose optimization techniques as appropriate, variously including the following: *Automated exposure control *Adjustment of mA and/or kV according to patient size (this includes techniques or standardized protocols for targeted exams where dose is matched to indication/reason for exam; i.e. extremities or head) *Use of iterative reconstruction technique. DLP: 411 mGy centimeter. FINDINGS: Limited evaluation of the intra-abdominal organs and vascular structures due to lack of IV contrast. LUNG BASES: No acute airspace disease. LIVER, GALLBLADDER, AND BILIARY TREE: Liver measures 20 cm. No pericholecystic fluid collection or gallbladder wall thickening. No intrahepatic or extrahepatic biliary ductal dilatation. PANCREAS: No peripancreatic fluid collection. The parenchyma is diminished. No main pancreatic ductal dilatation. SPLEEN: 9 cm. ADRENAL GLANDS: No nodular lesions. KIDNEYS AND URETERS: Right kidney: No hydronephrosis. 1 mm calculus in the midportion/lower pole junction. Multifocal exophytic hypodensities/fluid density lesions throughout the parenchyma. Left kidney: Mild prominence of the renal pelvis, likely extrarenal pelvis. The ureter is not dilated. There is no calcifications throughout the left ureter or the left vesicoureteral junction. There is no calculus in the left pelvicalyceal system. There is wall thickening of the urothelium in the left renal pelvis. There are multifocal exophytic hypodensities in the parenchyma, the largest measures 4 cm. BLADDER: There is wall thickening with a collapsed morphology. GASTROINTESTINAL TRACT: Appendix is normal. Abundant stool. No intestinal obstruction pattern. No pneumatosis intestinalis. No pneumoperitoneum. No ascites. No pneumoperitoneum. ABDOMINAL WALL: Small fat-containing umbilical hernia. LYMPH NODES: Lymphadenopathy, left retroperitoneum/perirenal. VASCULAR: Mixed plaques throughout the abdominal aorta wall and iliac arteries. The mesenteric pattern is an of the renal arteries. Mild prominent, 10 mm proximal celiac trunk. No aneurysm in the abdominal aorta. PELVIC VISCERA: Status post resection of the prostate gland with of fluid-filled abnormality at the surgical site. OSSEOUS STRUCTURES: Blastic lesion at the vertebral body of T12. Status post the metallic hardware placement in the posterior spinous processes of L3-4. Marginal osteophyte formation and endplate sclerosis subchondral cyst formation decreased intervertebral disc height and vacuum phenomenon at L2-3. Grade 1 retrolisthesis L3-4. No acute fracture. Dextroconvex morphology apex at L2-3. Sclerotic marginated the lytic lesions in the femoral head/neck more conspicuous on the right femur. Sclerosis and the sacroiliac joints bilaterally. CT/CT abdomen pelvis wo IV con IMPRESSION: Concerning inflammatory versus infectious process involving the urinary bladder and the urothelium of the left urinary collecting system. Nonobstructing nephrolithiasis, right kidney. Bilateral renal cysts. Blastic lesion, T12. 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 Hepatomegaly. Atherosclerosis disease. Fleischner guidelines were followed. Electronically signed by: Hugo Ralph MD 08/04/2024 01:15 PM EDT Dictated By: Hugo Callejas MD Signed By: <Electronically signed by Hugo Haider MD in OV> 08/04/24 1315 DD/ 1242 TD/TT: 08/04/24 1242 Metal Finish Inspector: [address] [address] [address] Scan Report Signed Patient: Jose D Conley MR#: [id number] : 1950 Acct:[id number] Age/Sex: 74 / M ADM Date: 08/04/24 Loc: HO.ED Attending Dr: Ordering Physician: Bettie uSarez DO Date of Service: 08/04/24 Procedure(s): CT abd omen pelvis wo IV con Accession Number(s): [id number] cc: Jose G Dickerson MD; Bettie Suarez DO Report Number: [id number]: Total DLP = 411.00 mGy-cm EXAMINATION: CT ABDOMEN AND PELVI S WITHOUT CONTRAST CLINICAL INFORMATION: Right flank pain. COMPARISON: March 04, 2022. TECHNIQUE: Multidetector volume tric imaging was performed from the superior aspect of the liver through the pubic symphysis. Sagittal and coronal reformatted images w ere obtained on the technologist's workstation. This CT examination was performed using dose optimization techniques as appropriate, various ly including the following: *Automated exposure control *Adjustment of mA an d/or kV according to patient size (this includes techniques or standardized protocols for targeted exams where dose is matched to indication/reason for exam; i.e. extremities or head) *Use of iterative reconstruction technique. DLP: 411 mGy centimeter. FINDINGS: Limited evaluation o f the intra-abdominal organs and vascular structures due to la ck of IV contrast. LUNG BASES: No acute airspace disease. LIVER, GALLBLADDER, AND BILIARY TREE: Liver measures 20 cm. No pericholecystic flui d collection or gallbladder wall thickening. No intrahepatic or extrahepatic biliary ductal dilatation. PANCREAS: No peripancreatic fluid collection. The parenchyma is diminished. No main pancreatic ductal dilatation. SPLEEN: 9 cm. ADRENAL GLANDS: No nodular lesions. KIDNEYS AND URETERS: Right kidney: No hydronephrosis. 1 mm calculus in the midportion/lower pole junction. Multifocal exophytic hypodensities/fluid density lesions throughout the parenchyma. Left kidney: Mild prominence of t he renal pelvis, likely extrarenal pelvis. The ureter is not dilate d. There is no calcifications throughout the left ureter or the left vesicoureteral junction. There is no calculus in the left pelvicalyceal system. There is wall thicke emmy of the urothelium in the left renal pelvis. There are multifocal exophytic hypodensities in the parenchyma, the largest measures 4 cm. BLADDER: There is wa ll thickening with a collapsed morphology. GASTROINTESTINAL TRACT: Appendix is normal. Abundant stool. No intestinal obstru ction pattern. No pneumatosis intestinalis. No pneumoperitoneum. No ascites. No pneumoperitoneum. ABDOMINAL WALL: Smal l fat-containing umbilical hernia. LYMPH NODES: Lymphadenopathy, left retroperitoneum/perirenal . VASCULAR: Mixed plaq ues throughout the abdominal aorta wall and iliac arteries. The mesent brittany pattern is an of the renal arteries. Mild prominent, 10 mm pro ximal celiac trunk. No aneurysm in the abdominal aorta. PELVIC VISCERA: Stat us post resection of the prostate gland with of fluid-filled abnorma lity at the surgical site. OSSEOUS STRUCTURES: Blastic lesion at the vertebral body of T12. Status post the meta llic hardware placement in the posterior spinous processes of L3-4. Marginal osteophyte formation and endplate sclerosis subchondral cyst formation decreased intervertebral disc height and vacuum phenomenon at L2-3. Grade 1 retrolisthes is L3-4. No acute fracture. Dextroconvex morphol ogy apex at L2-3. Sclerotic marginated the lytic lesions in the femoral head/neck more conspicuous on the r ight femur. Sclerosis and the sacroiliac joints bilaterally. C T/CT abdomen pelvis wo IV con IMPRESSION: Concerning inflammat ory versus infectious process involving the urinary bladder and the urothelium of the left urinary collecting system. Nonobstructing nephrolithiasis, right kidney. Bilateral renal cysts. Blastic lesion, T12. Avascular necrosis b oth femoral heads, old/chronic. Hepatomegaly. Atherosclerosis disease. Fleischner guideline s were followed. Electronically kalyan d by: Hugo Ralph MD 08/04/2024 01:15 PM EDT Dictated By: Hugo Huston MD Signed By: <Electronically signed by Hugo Haider MD in OV> 08/04/24 1315 DD/ 1242 TD/TT: 08/04/24 1242 Metal Finish Inspector: thoracic spine xiomy/dileep zaldivar Reviewed date:08/05/2024 03:27:00 PM Interpretation: Performing Lab: Notes/Report: [address] [address] Magnetic Resonance Report Signed Patient: Maci Conley MR#: [id number] : 1950 Acct:[id number] Age/Sex: 74 / M ADM Date: 08/04/24 Loc: [facility]: Violetta Tinsley MD Ordering Physician: Nathan Gastelum Date of Service: 08/04/24 Procedure(s): MR thoracic spine wo/w con Accession Number(s): [id number] cc: Nathan Gastelum; Jose G Dickerson MD CLINICAL HISTORY: Back pain. CT with T12 blastic lesion Pt stated he was in pain when laying flat for the scan, unable to repeat any. Hx prostate CA and known mets to bone MR of the thoracic spine before and after contrast administration. No comparison. Findings: There is mild lateral curve of the thoracolumbar spine. There is prominent fatty marrow replacement beginning at T11 extending inferiorly highly suspicious for sequela of previous radiation therapy. There is prominent heterogeneous signal in the T12 vertebral body that is indeterminate but concerning for metastatic disease. No other suspicious bony lesions are seen. There is multilevel degenerative disc disease. The thoracic cord is unremarkable. No significant narrowing of the spinal canal is identified. Impression: Heterogeneous signal in the T12 vertebral body suspicious for metastatic disease. There is no evidence of epidural extension and no other suspicious bony lesions are seen. Other findings as above. This document has been electronically signed by: Jose M Crabtree MD on 08/04/2024 18:18:16 Dictated By: Joby Lutz MD Signed By: <Electronically signed by Joby Lutz MD in OV> 08/04/24 1819 DD/ TD/TT: 08/04/241817 Metal Finish Inspector: [address] [address] Magnetic Resonance Report Signed Patient: Jose D Conley MR#: [id number] : 1950 Acct:[id number] Age/Sex: 74 / M ADM Date: 08/04/24 Loc: [facility]- Attending Dr: Violetta Tinsley MD Ordering Physician: Nathan Gastelum Date of Service: 08/04/24 Procedure(s): MR shaver spine wo/w con Accession Number(s): [id number] cc: Nathan Gastelum; Jose G Dickerson MD CLINICAL HISTORY: Ba ck pain. CT with T12 blastic lesion Pt stated he was in pain when laying flat for the scan, unable to repeat any. Hx prostate CA and known mets to bone MR of the thoracic s pine before and after contrast administration. No comparison. Findings: There is mild latera l curve of the thoracolumbar spine. There is prominent f atty marrow replacement beginning at T11 extending inferiorly highly suspicious for sequela of previous radiation therapy. There is prominent heterogeneous signal in the T12 vertebral body that is indeterminate but concerning for metastatic disease. No other suspicious bony lesions are seen. There is multilevel degenerative disc disease. The thoracic cord is unremarkable. No significant narro wing of the spinal canal is identified. Impression: Heterogeneous signal in the T12 vertebral body suspicious for metastatic disease. There is no evidence of epidural extension and no other suspicious bony lesi ons are seen. Other findings as above. This document has be en electronically signed by: Jose M Crabtree MD on 08/04/2024 18:18:16 Dictated By: Joby Lutz MD Signed By: <Electronically signed by Joby Lutz MD in OV> 08/04/241818 DD/ 17 TD/TT: 08/04/241817 Metal Finish Inspector: JAIRO chest 1V Reviewed date:08/05/2024 03:27:00 PM Interpretation: Performing Lab: Notes/Report: [address] [address] XRay Report Signed Patient: Maci Conley MR#: [id number] : 1950 Acct:[id number] Age/Sex: 74 / M ADM Date: 08/04/24 Loc: .ED Attending Dr: Ordering Physician: Bettie Suarez DO Date of Service: 08/04/24 Procedure(s): XR chest 1V Accession Number(s): [id number] cc: Jose G Dickerson MD; Bettie Suarez DO EXAMINATION: XR CHEST CLINICAL INFORMATION: fever COMPARISON: October 07, 2021. TECHNIQUE: Frontal view of the chest was obtained. FINDINGS: No consolidation, pleural effusion or pneumothorax. No hyperinflation. Cardiomediastinal silhouette size is normal. Calcified plaque thoracic aorta. Multilevel thoracic spondylosis. XR/XR chest 1V IMPRESSION: No acute airspace disease. Electronically signed by: Hugo Ralph MD 08/04/2024 12:12 PM EDT RP Dictated By: Hugo Callejas MD Signed By: <Electronically signed by Hugo Haider MD in OV> 08/04/24 1212 DD/ 1153 TD/TT: 08/04/24 1159 Metal Finish Inspector: [place] [address] XRay Report Signed Patient: Jose D Conley MR#: [id number] : 1950 Acct:[id number] Age/Sex: 74 / M ADM Date: 08/04/24 Loc: .ED Attending Dr: Ordering Physician: Bettie Suarez DO Date of Service: 08/04/24 Procedure(s): XR chest 1V Accession Number(s): [id number] cc: Jose G Dickerson MD; Bettie Suarez DO EXAMINATION: XR CHEST CLINICAL INFORMATION: fever COMPARISON: October 07, 2021. TECHNIQUE: Frontal view of the chest was obtained. FINDINGS: No consolidation, pl eural effusion or pneumothorax. No hyperinflation. Cardiomediastinal silhouette size is normal. Calcified plaque thoracic aorta. Multilevel thoracic spondylosis. X R/XR chest 1V IMPRESSION: No acute airspace disease. Electronically kalyan d by: Hugo Ralph MD 08/04/2024 12:12 PM EDT RP Dictated By: Hugo Huston MD Signed By: <Electronically signed by Hugo Haider MD in OV> 08/04/24 1212 DD/ 1153 TD/TT: 08/04/24 1159 Metal Finish Inspector: Complete Blood Count no Diff Reviewed date:08/05/2024 03:27:00 PM Interpretation: Performing Lab:[facility], [address] [place] [id number] Notes/Report: White Blood Count 9.6 4.8-10.8 X10*3/uL Red Blood Count 2.98 4.60-5.80 X10*6/uL Hemoglobin 8.4 14.0-18.0 g/dl Hematocrit 27.9 42.0-52.0 % Mean Corpuscular Volume 93.6 80.0-98.0 fL Mean Corpuscular Hemoglobin 28.2 27.0-33.0 pg Mean Corpuscular HGB Conc 30.1 31.0-36.0 g/dl Red Cell Distribution Width 14.4 11.0-16.0 % Platelet Count 147 160-400 X10*3/uL Mean Platelet Volume 9.8 9.4-12.4 fL NRBC Pct Auto 0.0 0.0-0.2 /100WBC NRBC Abs Auto 0.000 0.0-0.012 X10*3/uL Basic Metabolic Panel Reviewed date:08/05/2024 03:27:00 PM Interpretation: Performing Lab:[facility], [address] [place] [phone] Notes/Report: Sodium 140 135-145 mmol/L Potassium 4.3 3.3-5.1 mmol/L Chloride 110 96-108 mmol/L Carbon Dioxide 23 22-29 mmol/L Anion Gap 11 12-20 Blood Urea Nitrogen 39 9-16 mg/dL Creatinine 2.59 0.5-1.4 mg/dL Creatinine Clr Calc Pharmacy 25.6 eGFR (calculated from the MDRD study equation) and eCrCl (calculated from the Cockcroft-Gault equation) are based on different parameters and may not yield comparable results. If eCrCl result is absurd, please check patient's height/weight. Estimated Glomerular Filt Rate 24 Chronic Kidney Disease: Estimated GFR < 60 mL/min/1.73m2 Severe Kidney Disease: Estimated GFR < 15 mL/min/1.73m2 Glucose Random 126 60-115 mg/dL Calcium 8.0 8.4-10.2 mg/dL Test was veri fied by repeat analysis. Prostate Specific Antigen Reviewed date:08/05/2024 03:27:00 PM Interpretation: Performing Lab:[facility], [address] [place] [phone] Notes/Report: Prostate Specific Antigen 0.30 <0.05-4.0 ng/mL PSA methodology: Dominguez Alinity i Chemiluminescent Microparticle Immunoassay (CMIA) SARS-CoV2/FLU/RSV Reviewed date:08/05/2024 03:27:00 PM Interpretation: Performing Lab:[address] [address] Notes/Report: Influenza A PCR NEGATIVE Negative Influenza B PCR NEGATIVE Negative Resp Syncy Virus RNA Qual PCR NEGATIVE Negative SARS COV2 PCR INHOUSE NEGATIVE Negative All test results must be correlated with clinical findings. Negative results do not preclude SARS-CoV2, influenza A virus, influenza B virus and/or RSV infection and should not be used as the sole basis for treatment or other patient management decisions. Negative results must be combined with clinical observations, patient history, and epidemiological information. This test has not been evaluated for monitoring treatment of infection. This test has been authorized by the FDA under an Emergency Use Authorization (EUA) for use by authorized laboratories. Testing performed on the [employer] GeneXpert utilizing real-time RT-PCR. All SARS CoV2 and positive influenza A/B results are reported to [facility]. CT head/brain wo con Reviewed date:08/07/2024 07:20:28 AM Interpretation: Performing Lab: Notes/Report: [address] [address] [address] Scan Report Signed Patient: Maci Conley MR#: [id number] : 1950 Acct:[id number] Age/Sex: 74 / M ADM Date: 08/04/24 Loc: .S3 357-[address]: Bassem Mehta MD Ordering Physician: Bassem Mehta MD Date of Service: 08/05/24 Procedure(s): CT head/brain wo IV con Accession Number(s): [id number] cc: Jose G Dickerson MD; Bassem Mehat MD Report Number: [id number]: Total DLP = 718.00 mGy-cm CLINICAL HISTORY: fell and hit head CT head without contrast Comparison: Head CT from 10/07/2021 Findings: No acute intracranial hemorrhage. No midline shift or hydrocephalus. Mild volume loss is generalized. 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 No large arterial territorial infarction by CT. Fluid and mucosal thickening of the paranasal sinuses multifocal most pronounced in the ethmoid air cells. Retention cysts of the left maxillary sinus partially imaged. Small left mastoid effusion. No acute skull fracture. Prominent vessel channels noted. Previous right cataract procedure change. IMPRESSION: 1. No acute intracranial abnormality by CT. 2. No acute skull fracture. 3. Fluid and mucosal thickening of the ethmoid air cells as can be associated with sinusitis. This document has been electronically signed by: Brittany Durbin MD on 08/05/2024 20:56:00 Dictated By: Brittany Durbin MD Signed By: <Electronically signed by Brittany Durbin MD in OV> 08/05/242055 DD/ 55 TD/TT: 08/05/242055 Metal Finish Inspector: [place] [address] CT Scan Report Signed Patient: Jose D Conley MR#: [id number] : 1950 Acct:[id number] Age/Sex: 74 / M ADM Date: 08/04/24 Loc: HO.S3 357-[address]: Joel Mehta MD Ordering Physician: Bassem Mehta MD Date of Service: 08/05/24 Procedure(s): CT head/brain wo IV con Accession Number(s): [id number] cc: Jose G Dickerson MD; Bassem Mehta MD Report Number: [id number]: Total DLP = 718.00 mGy-cm CLINICAL HISTORY: fe ll and hit head CT head without contrast Comparison: Head CT from 10/07/2021 Findings: No acute intracrania l hemorrhage. No midline shift or hydrocephalus. Mild volume loss is generalized. 1 cm low-density right basal ganglia region likely due to old sm all infarction. No large arterial territorial infarction by CT. Fluid and mucosal thickening of the paranasal sinuses multifocal most pronounced in the et hmoid air cells. Retention cysts of the left maxillary sinus partially imag ed. Small left mastoid effusion. No acute skull fracture. Prominent vessel channels noted. Previous right catar act procedure change. IMPRESSION: 1. No acute intracra nial abnormality by CT. 2. No acute skull fracture. 3. Fluid and mucosal thickening of the ethmoid air cells as can be associated with sinusitis. This document has be en electronically signed by: Brittany Durbin MD on 08/05/2024 20:56:00 Dictated By: Subha Durbin MD Signed By: <Electronically signed by Brittany Durbin MD in OV> 08/05/242055 DD/ 55 TD/TT: 08/05/242055 Metal Finish Inspector: XR chest 2V Reviewed date:08/05/2024 03:27:00 PM Interpretation: Performing Lab: Notes/Report: [address] [address] XRay Report Signed Patient: Maci Conley MR#: [id number] : 1950 Acct:[id number] Age/Sex: 74 / M ADM Date: 08/04/24 Loc: .S3 357-[address]: Bassem Mehta MD Ordering Physician: Bassem Mehta MD Date of Service: 08/05/24 Procedure(s): XR chest 2V Accession Number(s): [id number] cc: Jose G Dickerson MD; Bassem Mehta MD EXAMINATION: XR CHEST 2 VIEWS HISTORY: cough COMPARISON: Comparison is made with the prior examination dated 08/04/2024. FINDINGS: AP and lateral views of the chest are submitted. There is new patchy airspace opacity at the right lung base, consistent with pneumonia. The left lung is clear. There is no pleural effusion, pneumothorax, or pulmonary vascular congestion. The heart is normal in size. The bones are intact. XR/XR chest 2V IMPRESSION: Bibasilar pneumonia. Electronically signed by: Jose G Dennison MD 08/05/2024 02:36 PM EDT RP Dictated By: Jose G Dennison MD Signed By: <Electronically signed by Jose G Dennison MD in OV> 08/05/24 1436 DD/ 135 TD/TT: 08/05/24 135 Metal Finish Inspector: [address] [address] XRay Report Signed Patient: Jose D Conley MR#: [id number] : 1950 Acct:[id number] Age/Sex: 74 / M ADM Date: 08/04/24 Loc: .S3 357-[address]: Joel Mehta MD Ordering Physician: Bassem Mehta MD Date of Service: 08/05/24 Procedure(s): XR chest 2V Accession Number(s): [id number] cc: Jose G Dickerson MD; Bassem Mehta MD EXAMINATION: XR CHES T 2 VIEWS HISTORY: cough COMPARISON: Comparis on is made with the prior examination dated 08/04/2024. FINDINGS: AP and lat eral views of the chest are submitted. There is new patchy airspace opacity at the right lung base, consistent with pneumonia. The left lung is clear. There is no pleural effusion, pneumothorax, or pulmonary vascular congestion. The heart is normal in size. The bones are intact. X R/XR chest 2V IMPRESSION: Bibasilar pneumonia. Electronically kalyan d by: Jose G Dennison MD 08/05/2024 02:36 PM EDT RP Dictated By: Jose G Dennison MD Signed By: <Electronically signed by Jose G Dennison MD in OV> 08/05/24 1436 DD/ 1350 TD/TT: 08/05/24 135 Metal Finish Inspector: Eddie Sahu - Possible Hematolo gy Reviewed date:08/07/2024 07:20:28 AM Interpretation: Performing Lab:[facility], [address] [place] [phone] Notes/Report: Hold Lav - Possible Hematology SEE NOTE Specimen will be held untested for 8 hours. Call Hematology if testing is desired. Basic Metabolic Panel Reviewed date:08/07/2024 07:20:28 AM Interpretation: Performing Lab:[facility], [address] [place] [phone] Notes/Report: Sodium 140 135-145 mmol/L Potassium 4.0 3.3-5.1 mmol/L Chloride 112 96-108 mmol/L Carbon Dioxide 20 22-29 mmol/L Anion Gap 12 12-20 Blood Urea Nitrogen 40 9-16 mg/dL Creatinine 2.65 0.5-1.4 mg/dL Creatinine Clr Calc Pharmacy 25.6 eGFR (calculated from the MDRD study equation) and eCrCl (calculated from the Cockcroft-Gault equation) are based on different parameters and may not yield comparable results. If eCrCl result is absurd, please check patient's height/weight. Estimated Glomerular Filt Rate 24 Chronic Kidney Disease: Estimated GFR < 60 mL/min/1.73m2 Severe Kidney Disease: Estimated GFR < 15 mL/min/1.73m2 Glucose Random 98 60-115 mg/dL Calcium 7.1 8.4-10.2 mg/dL Procalcitonin Reviewed date:08/07/2024 07:20:28 AM Interpretation: Performing Lab:[facility], [address] [place] [phone] Notes/Report: Procalcitonin 14.76 Procalcitonin (PCT) Reference Range: PCT greater than 2.0 ng/mL: A PCT level above 2.0 ng/mL on the first day of ICU admission is associated with a high risk for progression to severe sepsis and/or septic shock. PCT less than 0.5 ng/mL: A PCT level below 0.5 ng/mL on the first day of ICU admission is associated with a low risk for progression to severe sepsis and/or septic shock. PCT levels below 0.5 ng/mL do not exclude an infection. Care must be taken in interpreting PCT results from different laboratories and methodologies. References: [place] [employer]/Society of Critical Care Medicine Consensus Conference Committee. Definitions for sepsis and organ failure and guidelines for the use of innovative therapies in sepsis. Crit Care Med 1992;20(6):864-874. Precious B, Catina COLEMAN, Becky H, et al. Calcitonin precursors are reliable markers of sepsis in a medical intensive care unit. Crit Care Med 2000;363:600-607. Zheng S, Gloria K, Chuy C, et al. Diagnostic value of procalcitonin, interleukin-6 and interleukin-8 in critically ill patients admitted with suspected sepsis. AM J Respir Crit Care Med 2001;164:396-402. US Food and Drug Administration. 510(k) substantial equivalence determination decision summary for [facility] PCT SHARON. http://www.accessdat a.fda.fov/cdrh_docs/ reviews/H285019.pdf. Published May 2004. Accessed October 2016. Creatinine Urine Reviewed date:08/07/2024 07:20:28 AM Interpretation: Performing Lab:[facility], [address] [place] [phone] Notes/Report: Creatinine Urine 77.77 Sodium Urine Random Reviewed date:08/07/2024 07:20:28 AM Interpretation: Performing Lab:[facility], [address] [place] [phone] Notes/Report: Sodium Urine Random 56.0 Legionella Ag Urine Reviewed date:08/11/2024 08:13:59 PM Interpretation: Performing Lab:[address] [address] Notes/Report: Legionella Ag Urine Not Detected Not Detected This assay is specific for Legionella pneumophila serogroup 1 which causes more than 50% of all Legionella infections. This assay will not detect infections caused by other Legionella species/serogrps. Antigenuria may persist for prolonged periods of time. Legionella pneumophila serogroup 1 antigen can be detected in urine within 2-3 days of infection and may persist even after treatment. This assay does not detect other Legionella species or serogroups. THIS TEST WAS PERFORMED AT: [facility]/[address] [phone] KAROL ARNDT MD,PHD MRSA Nasal Screen Reviewed date:08/07/2024 07:20:28 AM Interpretation: Performing Lab:[facility], [address] [place] [phone] Notes/Report: MRSA Nasal PCR NEGATIVE Negative SA Nasal PCR NEGATIVE Negative MRSA Interpretation SEE NOTE MRSA target DNA not detected; SA target DNA not detected. A MRSA NEGATIVE, SA NEGATIVE test result does not preclude MRSA or SA nasal colonization. Strep Pneumo Ag urine Reviewed date:08/11/2024 08:13:59 PM Interpretation: Performing Lab:[facility], [address] [place] [phone] Notes/Report: Strep Pneumo Ag urine Not Detected Not Detected THIS TEST WAS PERFORMED AT: [facility] [address] [address] KAROL ARNDT MD,PHD US renal BI Reviewed date:08/07/2024 07:20:28 AM Interpretation: Performing Lab: Notes/Report: [address] [address] Ultrasound Report Signed Patient: Maci Conley MR#: [id number] : 1950 Acct:[id number] Age/Sex: 74 / M ADM Date: 08/04/24 Loc: .S3 357-[address]: Bassem Mehta MD Ordering Physician: Bassem Mehta MD Date of Service: 08/06/24 Procedure(s): US renal BI Accession Number(s): [id number] cc: Jose G Dickerson MD; Bassem Mehta MD CLINICAL HISTORY: check for hydronephrosis US Renal Comparison: None Findings: Right kidney measures 10.9 cm in length. Left kidney measures 11.2 cm in length. Comparative images of the liver and spleen were not obtained for accurate evaluation of renal cortical echogenicity. Questionable increased right renal cortical echogenicity , due to questionable medical renal disease. No hydronephrosis (mild left-sided pyelectasia is seen). Bilateral simple renal cysts measuring up to 5.2 cm. Humeral IMPRESSION: No hydronephrosis. Questionable increased right renal cortical echogenicity due to questionable medical renal disease. This document has been electronically signed by: Julissa Castañeda MD on 08/06/2024 12:28:22 Dictated By: Julissa Castañeda MD Signed By: <Electronically signed by Julissa Castañdea MD in OV> 08/06/241228 DD/ 27 TD/TT: 08/06/241227 Metal Finish Inspector: [address] [address] Ultrasound Report Signed Patient: Jose D Conley MR#: [id number] : 1950 Acct:[id number] Age/Sex: 74 / M ADM Date: 08/04/24 Loc: [facility] 357-[address]: Joel Mehta MD Ordering Physician: Bassem Mehta MD Date of Service: 08/06/24 Procedure(s): US renal BI Accession Number(s): [id number] cc: Jose G Dickerson MD; Bassem Mehta MD CLINICAL HISTORY: ch pedro for hydronephrosis US Renal Comparison: None Findings: Right kidney measure s 10.9 cm in length. Left kidney measures 11.2 cm in length. Comparative images of the liver and spleen were not obtained for accurate evaluation of renal cortical echogenicity. Questionable increased right renal cortical echogenicity , due to questionable medical renal disease. No hydronephrosis (mild left-sided pyelectasia is seen). Bilateral simple ramona al cysts measuring up to 5.2 cm. Humeral IMPRESSION: No hydronephrosis. Questionable increas ed right renal cortical echogenicity due to questionable medical renal disease. This document has be en electronically signed by: Julissa Castañeda MD on 08/06/2024 12:28:22 Dictated By: Quintin Castañeda MD Signed By: <Electronically signed by Julissa Castañeda MD in OV> 08/06/24 122 DD/ TD/TT: 08/06/241227 Metal Finish Inspector: Basic Metabolic Panel Reviewed date:08/11/2024 08:13:59 PM Interpretation: Performing Lab:[facility], [address] [place] [phone] Notes/Report: Sodium 142 135-145 mmol/L Potassium 3.8 3.3-5.1 mmol/L Chloride 115 96-108 mmol/L Carbon Dioxide 20 22-29 mmol/L Anion Gap 11 12-20 Blood Urea Nitrogen 31 9-16 mg/dL Creatinine 2.35 0.5-1.4 mg/dL Creatinine Clr Calc Pharmacy 28.9 eGFR (calculated from the MDRD study equation) and eCrCl (calculated from the Cockcroft-Gault equation) are based on different parameters and may not yield comparable results. If eCrCl result is absurd, please check patient's height/weight. Estimated Glomerular Filt Rate 27 Chronic Kidney Disease: Estimated GFR < 60 mL/min/1.73m2 Severe Kidney Disease: Estimated GFR < 15 mL/min/1.73m2 Glucose Random 94 60-115 mg/dL Calcium 6.9 8.4-10.2 mg/dL B Type Natriuretic Peptide Reviewed date:08/07/2024 07:20:28 AM Interpretation: Performing Lab:[facility], [address] [place] [phone] Notes/Report: B Type Natriuretic Peptide 191 <100 pg/mL Albumin Level Reviewed date:08/11/2024 08:13:59 PM Interpretation: Performing Lab:[facility], [address] [place] [phone] Notes/Report: Albumin Level 2.6 3.5-5.0 g/dL Hold Lav - Possible Hematolo gy Reviewed date:08/11/2024 08:13:59 PM Interpretation: Performing Lab:[facility], [address] [place] [phone] Notes/Report: Hold Lav - Possible Hematology SEE NOTE Specimen will be held untested for 8 hours. Call Hematology if testing is desired. Basic Metabolic Panel Reviewed date:08/11/2024 08:13:59 PM Interpretation: Performing Lab:[facility], [address] [place] [phone] Notes/Report: Sodium 142 135-145 mmol/L Potassium 3.9 3.3-5.1 mmol/L Chloride 114 96-108 mmol/L Carbon Dioxide 22 22-29 mmol/L Anion Gap 10 12-20 Blood Urea Nitrogen 23 9-16 mg/dL Creatinine 2.20 0.5-1.4 mg/dL Creatinine Clr Calc Pharmacy 30.9 eGFR (calculated from the MDRD study equation) and eCrCl (calculated from the Cockcroft-Gault equation) are based on different parameters and may not yield comparable results. If eCrCl result is absurd, please check patient's height/weight. Estimated Glomerular Filt Rate 29 Chronic Kidney Disease: Estimated GFR < 60 mL/min/1.73m2 Severe Kidney Disease: Estimated GFR < 15 mL/min/1.73m2 Glucose Random 91 60-115 mg/dL Calcium 6.9 8.4-10.2 mg/dL Procalcitonin Reviewed date:08/11/2024 08:13:59 PM Interpretation: Performing Lab:[facility], [address] [place] [phone] Notes/Report: Procalcitonin 3.54 Procalcitonin (PCT) Reference Range: PCT greater than 2.0 ng/mL: A PCT level above 2.0 ng/mL on the first day of ICU admission is associated with a high risk for progression to severe sepsis and/or septic shock. PCT less than 0.5 ng/mL: A PCT level below 0.5 ng/mL on the first day of ICU admission is associated with a low risk for progression to severe sepsis and/or septic shock. PCT levels below 0.5 ng/mL do not exclude an infection. Care must be taken in interpreting PCT results from different laboratories and methodologies. References: [place] [employer]/Society of Critical Care Medicine Consensus Conference Committee. Definitions for sepsis and organ failure and guidelines for the use of innovative therapies in sepsis. Crit Care Med 1992;20(6):864-874. Lang B, Catina KL, Schazuleymaer H, et al. Calcitonin precursors are reliable markers of sepsis in a medical intensive care unit. Crit Care Med 2000;363:600-607. Zheng S, Gloria K, Chuy C, et al. Diagnostic value of procalcitonin, interleukin-6 and interleukin-8 in critically ill patients admitted with suspected sepsis. AM J Respir Crit Care Med 2001;164:396-402. US Food and Drug Administration. 510(k) substantial equivalence determination decision summary for [facility] PCT SHARON. http://www.accessdat a.fda.fov/cdr_docs/ reviews/B411352.pdf. Published May 2004. Accessed October 2016. MR lumbar spine wo/w con Reviewed date:08/11/2024 08:13:59 PM Interpretation: Performing Lab: Notes/Report: [address] [address] Magnetic Resonance Report Signed Patient: Maci Conley MR#: [id number] : 1950 Acct:[id number] Age/Sex: 74 / M ADM Date: 08/04/24 Loc: HO.S3 357-[address]: Violetta Tinsley MD Ordering Physician: Bassem Mehta MD Date of Service: 08/08/24 Procedure(s): MR lumbar spine wo/w con Accession Number(s): [id number] cc: Jose G Dickerson MD; Bassem Mehta MD EXAMINATION: MR LUMBAR SPINE WITHOUT AND WITH CONTRAST CLINICAL INFORMATION: Metastatic Prostate cancer. Left hip weakness. COMPARISON: May 09, 2022. Correlated to bone scan dated February 24, 2024. TECHNIQUE: MRI of the lumbar spine was obtained using routine sequences with and without contrast. Intravenous contrast: Gadavist 7.5 mL. No reported immediate complications. FINDINGS: Last rib-bearing vertebra labeled T12. Paramagnetic field distortion secondary to metallic hardware posterior elements of L3-L4. Bone marrow inhomogeneity throughout the axial skeleton. Increased intrinsic hyperintense T1 signal throughout the bone marrow of the axial skeleton related to fatty infiltration. There is a subtle bone marrow hyperintense STIR signal and enhancement involving the superior and posterior endplate of T12. There is a subtle bone marrow hyperintense STIR with the minimal enhancement throughout the vertebral bodies L2-L5. Grade 1 retrolisthesis L2-3 and L3-4. Multilevel marginal osteophyte formation and disc desiccation. Conus medullaris ends at inferior endplate of T12 with normal signal. No abnormal enhancement within the neural elements of the thecal sac/leptomeningeal compartment. T12-L1: No disc herniation. No neuroforamina stenosis. L1-2: Broad-based disc bulging. Facet joint and ligamentum flavum hypertrophy. No compression upon neural elements. L2-3: Broad-based disc bulging. Facet joint and ligamentum flavum hypertrophy. Central spinal canal and bilateral neuroforamina, left greater than the right stenosis encroaching the neural elements of the thecal sac and the exiting nerve roots. L3-4: Broad-based disc bulging. Facet joint and ligamentum flavum hypertrophy. CSF effacement of the thecal sac. Central spinal canal and bilateral neuroforamina stenosis compressing the neural elements. L4-5: Broad-based disc bulging. Facet joint and ligamentum flavum hypertrophy. Reduced AP diameter of the thecal sac and the neural foramina encroaching the neural elements. L5-S1: Broad-based disc bulging. Facet joint hypertrophy. No compression upon neural elements. Bilateral, multifocal different sizes nonenhancing fluid signal characteristic lesions in the kidneys. MR/MR lumbar spine wo/w con IMPRESSION: Less conspicuous osseous metastasis. Overall improved. No leptomeningeal enhancement. No acute pathologic fracture. Multilevel spondylosis resulting in central spinal canal and bilateral neuroforamina stenosis at L3-4 and to a lesser extent L2-3 and L4-5 levels compressing the neural elements of the thecal sac and the exiting nerve roots at L3-4. Electronically signed by: Hugo Ralph MD 08/09/2024 08:21 AM EDT Dictated By: Hugo Callejas MD Signed By: <Electronically signed by Hugo Haider MD in OV> 08/09/24 0821 DD/ 1440 TD/TT: 08/08/24 1520 Metal Finish Inspector: [place] [address] Magnetic Resonance Report Signed Patient: Jose D Conley MR#: [id number] : 1950 Acct:[id number] Age/Sex: 74 / M ADM Date: 08/04/24 Loc: .S3 357-[address]: Violetta Tinsley MD Ordering Physician: Bassem Mehta MD Date of Service: 08/08/24 Procedure(s): MR lum bar spine wo/w con Accession Number(s): [id number] cc: Jos eG Dickerson MD; Bassem Mehta MD EXAMINATION: MR LUMBAR SPINE WITH OUT AND WITH CONTRAST CLINICAL INFORMATION: Metastatic Prostate cancer. Left hip weakness. COMPARISON: May 09, 2022. Correlated to bone s can dated February 24, 2024. TECHNIQUE: MRI of the lumbar sp ine was obtained using routine sequences with and without contrast. Intravenous contrast: Gadavist 7.5 mL. No reported immediate complications. FINDINGS: Last rib-bearing blake tebra labeled T12. Paramagnetic field distortion secondary to metallic hardware posterior elements of L3-L4. Bone marrow inhomoge neity throughout the axial skeleton. Increased intrinsic hyperintense T1 signal throughout the bone marrow of the axial skeleto n related to fatty infiltration. There is a subtle carmen ne marrow hyperintense STIR signal and enhancement involving the superi or and posterior endplate of T12. There is a subtle carmen ne marrow hyperintense STIR with the minimal enhancement througho ut the vertebral bodies L2-L5. Grade 1 retrolisthes is L2-3 and L3-4. Multilevel marginal osteophyte formation and disc desiccation. Conus medullaris end s at inferior endplate of T12 with normal signal. No abnormal enhancem ent within the neural elements of the thecal sac/leptomeningeal compartment. T12-L1: No disc herniation. No neuroforamina stenosis. L1-2: Broad-based disc bul ging. Facet joint and ligamentum flavum hypertrophy. No compression upon neural elements. L2-3: Broad-based disc bul ging. Facet joint and ligamentum flavum hypertrophy. Central spinal canal and bilateral neuroforamina, left greater than the rig ht stenosis encroaching the neural elements of the thecal sac and the exiting nerve roots. L3-4: Broad-based disc bul ging. Facet joint and ligamentum flavum hypertrophy. CSF effacement of the thecal sac. Central spinal canal and bilateral neuroforam karsten stenosis compressing the neural elements. L4-5: Broad-based disc bul ging. Facet joint and ligamentum flavum hypertrophy. Reduced AP diameter of the thecal sac and the neural foramina encroaching the neural elements. L5-S1: Broad-based disc bul ging. Facet joint hypertrophy. No compression upon neural elements. Bilateral, multifoca l different sizes nonenhancing fluid signal characteristic lesio ns in the kidneys. M R/MR lumbar spine wo/w con IMPRESSION: Less conspicuous oss eous metastasis. Overall improved. No leptomeningeal enhancement. No acute pathologic fracture. Multilevel spondylos is resulting in central spinal canal and bilateral neuroforamina stenos is at L3-4 and to a lesser extent L2-3 and L4-5 levels compressing t he neural elements of the thecal sac and the exiting nerve roots at L3-4. Electronically kalyan d by: Hugo Ralph MD 08/09/2024 08:21 AM EDT RP Dictated By: Hugo Huston MD Signed By: <Electronically signed by Hugo Haider MD in OV> 08/09/24 0821 DD/ 1440 TD/TT: 08/08/24 1520 Metal Finish Inspector: Reason For Referral Reason Evaluate and Treat Blood in Stool Diagnosis 1 Blood in stool (K92. 1) Referral Organization Jose G Dickerson III, MD Referring Provider First Name Jose G Referring Provider Last Name Jayla Referring Provider Speciality Internal edicine Referred Organization [facility] nt Referred Provider [facility] er, Gastroenterology Referred Address [address] [place] [address],[place], [place],[id number], Referred Provider Specialty Gastroentero logy General Notes D Elvira 08/18/2024 04:05:39 PM > Referral was faxed. Referral Priority Routine Reason Consult and Treat MRI done at [facility] on 08/08/2024 Spinal Canal Stenosis L3-4 Herniated Disc Diagnosis 1 Herniated lumbar int ervertebral disc (M51.26) Diagnosis 2 Spinal stenosis, lum bosacral region (M48.07) Referral Organization Jose G Dickerson III, MD Referring Provider First Name Jose G Referring Provider Last Name Jayla Referring Provider Speciality Internal edicine Referred Provider [facility] Referred Provider Specialty Neurosurgery General Notes D Elvira 08/29/2024 11:10:35 AM > Referral, progress note and recent MRI faxed. Referral Priority Routine Medications Medication SIG (Take, Route, Frequency, Duration) Notes Start Date End Date Status Cyanocobalamin 1000 MCG/ML 1 mL Injection 03/31/20 24 Active Ferrous Gluconate 324 (38 Fe) MG 1 tablet Orally daily 03/30/2024 Active Immunizations Vaccine Route Administration Date Status Comme nts Tdap Unknown 06/16/2015 Administered Social History Tobacco Use: Social History Observation [...] User Light cigarett e smoker ((1-9 cigs/day) Alcohol Screen Question Answer Notes Did you have a drink containing alcohol in the p ast year? No Points 0 Interpretation Negative Problems Problem Type SNOMED Code ICD Code Onset Dates Problem Status W/U Status Risk Notes Problem 604339825 Overweight (E66.3) Active confirmed He has lost 5 pounds since his last visit and is no longer overweeight. His weight will be followed carefully. We discussed diet and nutrition today. Problem 995022408 Prostate cancer (C61) Active confirmed His PSA has fallen to From 0.25 to 0.13 and is now 0.12.. He is treated with Eligard. He was at one point taking Xtandi. He is currently asymptomatic and has gained weight.The spinal cord is intact without epidural invasion on recent MRIs of the thoracic and lumbar spine. 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 Current therapy with intermittent androgen deprivation therapy was continued. Problem [id number] B12 deficiency (E53.8) Active confirmed He received a B 12 injection today without difficulty in the left arm. 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 I will continue. We will begin receiving denosumab. Problem 71586635 Essential hypertension (I10) Active confirmed His blood pressure has been controlled.. He iss asymptomatic. He says he feels like his usual self which is tired. He was not tachycardic. He will be observed carefully. His pressure today is 102/70. Problem 69471739 Tobacco dependence (F17.200) Active confirmed I have discusse d with him all of the long-term consequences of smoking and he is well aware of them. I have offered to refer him to smoking cessation programs at the [facility] and he will consider this. Problem 13984884 Pernicious anemia (D51.0) Active confirmed He received 1 000 mcg of vitamin B12by intramuscular injection in the left armToday without difficulty. Problem 35243349 Iron deficiency anemia, unspecified iron deficiency anemia type (D50.9) Active confirmed His ferritin which was 15 is now 32. He will continue on the ferrous gluconate. His hematocrit has improved to 33%. Problem 572879628 Stage 3 chronic kidney disease (N18.3) Active confirmed His BUN has dropped from 36-30 and his GFR has improved to 35. His creatinine is improved from 2.12-1.87. Current therapy was continued.He was seen in the hospital recently by nephrology consultation. Follow-up visit with renal was made upon discharge. Problem 87353942 Age-related cataract of both eyes, unspecified age-related cataract type (H25.9) Active confirmed He is medically cleared for bilateral cataract extraction with a normal risk of a man his age. There is no contraindication to surgery. Problem 757237915 Macular degeneration of both eyes, unspecified type (H35.30) Active confirmed He will contin ue to receive his bevacizumab injections from his [employer] cashier. Problem Peripheral arterial occlusive disease (083312395) Peripheral arterial occlusive disease (I77.9) Active confirmed He reports t hat his claudication is very mild and hardly bothers him. This seems not to be an active problem for him at this time. Problem Displacement of lumbar intervertebral disc without myelopathy (14132987) Herniated lumbar intervertebral disc (M51.26) Active confirmed Problem Chronic kidney disease stage 3 (disorder) (384922889) Chronic kidney disease, stage 3 unspecified (N18.30) Active confirmed His GFR is 43. His BUN is lately. No change in his regimen as needed. Problem Chronic kidney disease stage 3A (disorder) (229117555) Chronic kidney disease, stage 3a (N18.31) Active confirmed Vital Signs Heart Rate 88 /min 08/26/2024 Temperature 97.2 degrees Fahrenheit 08/26/2024 Blood pressure diastolic 70 mm Hg 08/26/2024 Height 69 in 08/26/2024 Blood pressure systolic 102 mm Hg 08/26/2024 Weight 164 lbs 08/26/2024 BMI 24.22 kg/m2 08/26/2024 Encounters Encounter Location Date Provider Diagnosis Jose G Dickerson III, MD [address] [place] [address] [place] [id number] 10/14/2023 Jose G Hurtne Prostate cancer C61 ; Essential hypertension I10 ; Stage 3 chronic kidney disease N18.3 ; Pernicious anemia D51.0 ; Peripheral arterial occlusive disease I77.9 ; 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, initial encounter S24.114A ; Chronic kidney disease, stage 3 unspecified N18.30 and Age-related cataract of both eyes, unspecified age-related cataract type H25.9 Jose G Dickerson III, MD [address] [place] [address] [place] [id number] 11/11/2023 Jose G Hurtne Prostate cancer C61 ; Iron deficiency anemia, unspecified iron deficiency anemia type D50.9 ; Essential hypertension I10 ; Macular degeneration of both eyes, unspecified type H35.30 ; Stage 3 chronic kidney disease N18.3 ; 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, initial encounter S24.114A ; Tobacco dependence F17.200 and Pernicious anemia D51.0 Jose G Dickerson III, MD [address] [place] [address] [place] [address] 12/09/2023 Jose G Hurtne Prostate cancer C61 ; Essential hypertension I10 ; Stage 3 chronic kidney disease N18.3 ; Tobacco dependence F17.200 ; Peripheral arterial occlusive disease I77.9 ; 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, initial encounter S24.114A and Pernicious anemia D51.0 Jose G Dickerson III, MD [address] [place] [address] [place] [address] 01/06/2024 Jose G Hurtne Prostate cancer C61 ; Essential hypertension I10 ; Macular degeneration of both eyes, unspecified type H35.30 ; Stage 3 chronic kidney disease N18.3 ; Iron deficiency anemia, unspecified iron deficiency anemia type D50.9 ; 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, initial encounter S24.114A ; Peripheral arterial occlusive disease I77.9 ; Tobacco dependence F17.200 and Pernicious anemia D51.0 JoseG Dickerson III, MD [address] [place] [address] [place] [address] 02/03/2024 Jose G Dickerson Prostate cancer C61 ; Essential hypertension I10 ; Macular degeneration of both eyes, unspecified type H35.30 ; Stage 3 chronic kidney disease N18.3 ; Iron deficiency anemia, unspecified iron deficiency anemia type D50.9 ; 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, initial encounter S24.114A ; Pernicious anemia D51.0 and Tobacco dependence F17.200 Jose G Dickerson III, MD [address] [place] [address] [place] [address] 2024 Jose G Dickerson Essential hypertensi on I10 ; Prostate cancer C61 ; Iron deficiency anemia, unspecified iron deficiency anemia type D50.9 ; Vitamin B12 deficiency E53.8 ; Stage 3 chronic kidney disease N18.3 ; Tobacco dependence F17.200 ; Overweight E66.3 and Peripheral arterial occlusive disease I77.9 Jose G Dickerson III, MD [address] [place] [address] [place] [address] 03/30/2024 Jose G Dickerson Essential hypertensi on I10 ; Prostate cancer C61 ; Stage 3 chronic kidney disease N18.3 ; Tobacco dependence F17.200 ; Iron deficiency anemia, unspecified iron deficiency anemia type D50.9 ; Vitamin B12 deficiency E53.8 ; Macular degeneration of both eyes, unspecified type H35.30 and Peripheral arterial occlusive disease I77.9 Jose G Dickerson III, MD [address] [place] [address] [place] [address] 04/15/2024 Jose G Dickerson Essential hypertensi on I10 ; Prostate cancer C61 ; Stage 3 chronic kidney disease N18.3 ; Tobacco dependence F17.200 ; Iron deficiency anemia, unspecified iron deficiency anemia type D50.9 ; Peripheral arterial occlusive disease I77.9 ; Macular degeneration of both eyes, unspecified type H35.30 ; 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, initial encounter S24.114A and B12 deficiency E53.8 Jose G Dickerson III, MD [address] [place] [address] [place] [address] 04/28/2024 Jose G Dickerson Essential hypertensi on I10 ; Prostate cancer C61 ; Stage 3 chronic kidney disease N18.3 ; Tobacco dependence F17.200 ; Iron deficiency anemia, unspecified iron deficiency anemia type D50.9 ; Peripheral arterial occlusive disease I77.9 ; Macular degeneration of both eyes, unspecified type H35.30 and Pernicious anemia D51.0 Jose G Dickerson III, MD [address] [place] [address] [place] [address] 06/08/2024 Jose G Dickerson Essential hypertensi on I10 ; Prostate cancer C61 ; Iron deficiency anemia, unspecified iron deficiency anemia type D50.9 ; Macular degeneration of both eyes, unspecified type H35.30 ; Stage 3 chronic kidney disease N18.3 ; Peripheral arterial occlusive disease I77.9 ; Tobacco dependence F17.200 ; Overweight E66.3 and Pernicious anemia D51.0 Jose G Dickerson III, MD [address] [place] [address] [place] [address] 07/07/2024 Jose G Dickerson Essential hypertensi on I10 ; Prostate cancer C61 ; Cutaneous abscess of head excluding face L02.811 ; Iron deficiency anemia, unspecified iron deficiency anemia type D50.9 ; Macular degeneration of both eyes, unspecified type H35.30 ; Stage 3 chronic kidney disease N18.3 ; 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, initial encounter S24.114A ; Peripheral arterial occlusive disease I77.9 ; Tobacco dependence F17.200 and Pernicious anemia D51.0 Jose G Dickerson III, MD [address] [place] [address] [place] [address] 07/12/2024 Jose G Dickerson Essential hypertensi on I10 ; Prostate cancer C61 ; Macular degeneration of both eyes, unspecified type H35.30 ; Stage 3 chronic kidney disease N18.3 ; Iron deficiency anemia, unspecified iron deficiency anemia type D50.9 ; 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, initial encounter S24.114A ; Tobacco dependence F17.200 ; Pernicious anemia D51.0 and Furuncle L02.92 Jose G Dickerson III, MD [address] [place] [address] [place] [address] 08/26/2024 Jose G Dickerson Prostate cancer C61 ; Essential hypertension I10 ; Macular degeneration of both eyes, unspecified type H35.30 ; Stage 3 chronic kidney disease N18.3 ; Tobacco dependence F17.200 ; Peripheral arterial occlusive disease I77.9 ; 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, initial encounter S24.114A ; Pernicious anemia D51.0 and Overweight E66.3 Jose G Dickerson III, MD [address] [place] [address] [place] [address] 11/17/2023 Jose G Dickerson III, MD [address] [place] [address] [place] [address] 08/15/2024 Jose G Dickerson III, MD [address] [place] [address] [place] [address] 08/22/2024 Jose G Dickerson III, MD [address] [place] [address] [place] [address] 08/26/2024 Jose G Dickerson Assessments Encounter Date Diagnosis (ICD Code) Assessment Notes Treatment Notes Treatment Clinical Notes 10/14/2023 Prostate cancer (ICD-10 - C61) He has been compliant with his treatments. His PSA has fallen to 0.17. No change in his regimen as necessary today. 10/14/2023 Essential hypertension (ICD-10 - I10) His blood pressure today is 112/60, and no change in his regimen was necessary. 11/11/2023 Prostate cancer (ICD-10 - C61) The disease appears to be well controlled with the ADT. His testosterone is 5 and his PSA has fallen to 0.17. 11/11/2023 Iron deficiency anemia, unspecified iron deficiency anemia type (ICD-10 - D50.9) His anemia remains treated and is unremarkable. 12/09/2023 Prostate cancer (ICD-10 - C61) The disease appears to be well controlled with the ADT. His testosterone is 5 and his PSA has fallen to 0.17. 12/09/2023 Essential hypertension (ICD-10 - I10) His blood pressure today is 112/60, and no change in his regimen was necessary. 01/06/2024 Prostate cancer (ICD-10 - C61) The disease appears to be well controlled with the ADT. His testosterone is 5 and his PSA is 0.25. 01/06/2024 Essential hypertension (ICD-10 - I10) His blood pressure today is 112/60, and no change in his regimen was necessary. 02/03/2024 Prostate cancer (ICD-10 - C61) The disease appears to be well controlled with the ADT. His testosterone is 5 and his PSA is 0.25.He is being treated by urology as well as medical oncology 02/03/2024 Essential hypertension (ICD-10 - I10) His blood pressure today is 122/74 and no change in his regimen was necessary. 2024 Prostate cancer (ICD-10 - C61) His PSA remains low at 0.25. This will be followed carefully. He is under the care of urology, Dr. Mace and medical oncology, Dr. Montana. 2024 Essential hypertension (ICD-10 - I10) His blood pressure is currently stable and controlled. He was continued on his current medication without change. 03/30/2024 Prostate cancer (ICD-10 - C61) His PSA remains low. This will be followed carefully. He is under the care of urology, Dr. Mace and medical oncology, Dr. Montana. Prostate cancer is under control. A recent PET CT scan showed an abnormality in his mandible and he has been receiving monthly Xgeva which raises the possibility of osteonecrosis. 03/30/2024 Essential hypertension (ICD-10 - I10) His blood pressure is currently stable and controlled. He was continued on his current medication without change. 04/15/2024 Prostate cancer (ICD-10 - C61) A recent bone scan showed abnormality in the right mandible and a new lesion in a sinus. The PSA continues to fall now being 0.21 which raises the question of the etiology of the mandibular abnormality. He is going to have x-rays of that area to rule out osteonecrosis from his bisphosphonate therapy. That medication is temporarily on hold. 04/15/2024 Essential hypertension (ICD-10 - I10) His blood pressure is currently stable and controlled. He was continued on his current medication [...] That medication is temporarily on hold. 04/28/2024 Essential hypertension (ICD-10 - I10) His blood pressure is currently stable and controlled at 116/65. He was continued on his current medication without change. 06/08/2024 Prostate cancer (ICD-10 - C61) His PSA has fallen to 0.13. He is treated with Eligard. He was at one point taking Xtandi. He is currently asymptomatic and has gained 3 pounds. 06/08/2024 Essential hypertension (ICD-10 - I10) His blood pressure is currently stable and controlled at 116/65. He was continued on his current medication without change. 07/07/2024 Prostate cancer (ICD-10 - C61) His PSA has fallen to From 0.25 to 0.13 and is now 0.12.. He is treated with Eligard. He was at one point taking Xtandi. He is currently asymptomatic and has gained weight. 07/07/2024 Essential hypertension (ICD-10 - I10) His blood pressureWas low today in the upper 80s. He was asymptomatic. He says he feels like his usual self which is tired. He was not tachycardic. Pulse of 90 was obtained after ambulating. He will be observed carefully.. 07/12/2024 Prostate cancer (ICD-10 - C61) His PSA has fallen to From 0.25 to 0.13 and is now 0.12.. He is treated with Eligard. He was at one point taking Xtandi. He is currently asymptomatic and has gained weight. 07/12/2024 Essential hypertension (ICD-10 - I10) His blood pressure has been controlled.. He iss asymptomatic. He says he feels like his usual self which is tired. He was not tachycardic. He will be observed carefully.. 08/26/2024 Prostate cancer (ICD-10 - C61) His PSA has fallen to From 0.25 to 0.13 and is now 0.12.. He is treated with Eligard. He was at one point taking Xtandi. He is currently asymptomatic and has gained weight.The spinal cord is intact without epidural invasion on recent MRIs of the thoracic and lumbar spine. 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 Current therapy with intermittent androgen deprivation therapy was continued. 08/26/2024 Essential hypertension (ICD-10 - I10) His blood pressure has been controlled.. He iss asymptomatic. He says he feels like his usual self which is tired. He was not tachycardic. He will be observed carefully. His pressure today is 102/70. 10/14/2023 Stage 3 chronic kidney disease (ICD-10 - N18.3) His renal function is improved. He continues to hydrate himself well in the warm weather. His BUN is 23 and his creatinine is 1.91. 11/11/2023 Essential hypertension (ICD-10 - I10) His blood pressure today is 112/60, and no change in his regimen was necessary. 12/09/2023 Stage 3 chronic kidney disease (ICD-10 - N18.3) His renal function is improved. He continues to hydrate himself well in the warm weather. His BUN is 23 and his creatinine is 1.91. 01/06/2024 Macular degeneration of both eyes, unspecified type (ICD-10 - H35.30) He will continue to receive his bevacizumab injections from his [employer] cashier. 02/03/2024 Macular degeneration of both eyes, unspecified type (ICD-10 - H35.30) He will continue to receive his bevacizumab injections from his [employer] ticket cashier. 2024 Iron deficiency anemia, unspecified iron deficiency anemia type (ICD-10 - D50.9) He has a chronic multi-factorial anemia which is most likely anemia of chronic disease. His current hematocrit is 30%. His ferritin is 110. No change in his therapy was made today. He will be monitored for bleeding. 03/30/2024 Stage 3 chronic kidney disease (ICD-10 - N18.3) His renal function is iSlightly worse. He continues to hydrate himself well in the warm weather. His BUN is 36 and his creatinine is 2.12. His GFR has fallen to 31. He will follow up with renal. 04/15/2024 Stage 3 chronic kidney disease (ICD-10 - N18.3) His renal function is slightly worse. He continues to hydrate himself well in the warm weather. His BUN is 36 and his creatinine is 2.12. His GFR has fallen to 31. He will follow up with renal. 04/28/2024 Stage 3 chronic kidney disease (ICD-10 - N18.3) His renal function is slightly worse. He continues to hydrate himself well in the warm weather. His BUN is 36 and his creatinine is 2.12. His GFR has fallen to 31. He will follow up with renal. 06/08/2024 Iron deficiency anemia, unspecified iron deficiency anemia type (ICD-10 - D50.9) His ferritin March 2024 was low at 10. I have ordered a repeat. He has resumed taking his iron therapy. 07/07/2024 Cutaneous abscess of head excluding face (ICD-10 - L02.811) The inflamed area of skin above the right ear is draining small amounts of pus. This was cultured. He will use warm soaks and we will await the culture results. 07/12/2024 Macular degeneration of both eyes, unspecified type (ICD-10 - H35.30) He will continue to receive his bevacizumab injections from his [employer] ticket cashier. 08/26/2024 Macular degeneration of both eyes, unspecified type (ICD-10 - H35.30) He will continue to receive his bevacizumab injections from his [employer] ticket cashier. 10/14/2023 Pernicious anemia (ICD-10 - D51.0) He received 1000 mcg of vitamin B12by intramuscular injection in the left armToday without difficulty. 11/11/2023 Macular degeneration of both eyes, unspecified type (ICD-10 - H35.30) He will continue to receive his bevacizumab injections from his [employer] ticket cashier. 12/09/2023 Tobacco dependence (ICD-10 - F17.200) I have discussed with him all of the long-term consequences of smoking and he is well aware of them. I have offered to refer him to smoking cessation programs at the [facility] and he will consider this. 01/06/2024 Stage 3 chronic kidney disease (ICD-10 - N18.3) His renal function is improved. He continues to hydrate himself well in the warm weather. His BUN is 23 and his creatinine is 1.91. 02/03/2024 Stage 3 chronic kidney disease (ICD-10 - N18.3) His renal function is improved. He continues to hydrate himself well in the warm weather. His BUN is 23 and his creatinine is 1.91. 2024 Vitamin B12 deficiency (ICD-10 - E53.8) He received an injection of 1000 mcg intramuscular injection in the right arm without difficulty. He will do this monthly. 03/30/2024 Tobacco dependence (ICD-10 - F17.200) I have discussed with him all of the long-term consequences of smoking and he is well aware of them. I have offered to refer him to smoking cessation programs at the [facility] and he will consider this. 04/15/2024 Tobacco dependence (ICD-10 - F17.200) I have discussed with him all of the long-term consequences of smoking and he is well aware of them. I have offered to refer him to smoking cessation programs at the [facility] and he will consider this. 04/28/2024 Tobacco dependence (ICD-10 - F17.200) I have discussed with him all of the long-term consequences of smoking and he is well aware of them. I have offered to refer him to smoking cessation programs at the [facility] and he will consider this. 06/08/2024 Macular degeneration of both eyes, unspecified type (ICD-10 - H35.30) He will continue to receive his bevacizumab injections from his [employer] ticket cashier. 07/07/2024 Iron deficiency anemia, unspecified iron deficiency anemia type (ICD-10 - D50.9) His ferritin which was 15 is now 32. He will continue on the ferrous gluconate. His hematocrit has improved to 33%. 07/12/2024 Stage 3 chronic kidney disease (ICD-10 - N18.3) His BUN has dropped from 36-30 and his GFR has improved to 35. His creatinine is improved from 2.12-1.87. Current therapy was continued. 08/26/2024 Stage 3 chronic kidney disease (ICD-10 - N18.3) His BUN has dropped from 36-30 and his GFR has improved to 35. His creatinine is improved from 2.12-1.87. Current therapy was continued.He was seen in the hospital recently by nephrology consultation. Follow-up visit with renal was made upon discharge. 10/14/2023 Peripheral arterial occlusive disease (ICD-10 - I77.9) Noninvasive testing is underway to calculate his RAUL. Further treatment dependent upon the opinion of the vascular surgeon. 11/11/2023 Stage 3 chronic kidney disease (ICD-10 - N18.3) His renal function is improved. He continues to hydrate himself well in the warm weather. His BUN is 23 and his creatinine is 1.91. 12/09/2023 Peripheral arterial occlusive disease (ICD-10 - I77.9) Noninvasive testing is underway to calculate his RAUL. Further treatment dependent upon the opinion of the vascular surgeon. 01/06/2024 Iron deficiency anemia, unspecified iron deficiency anemia type (ICD-10 - D50.9) His anemia remains treated and is unremarkable. 02/03/2024 Iron deficiency anemia, unspecified iron deficiency anemia type (ICD-10 - D50.9) His anemia remains treated and is unremarkable. 2024 Stage 3 chronic kidney disease (ICD-10 - N18.3) His renal function is improved. He continues to hydrate himself well in the warm weather. His BUN is 23 and his creatinine is 1.91. 03/30/2024 Iron deficiency anemia, unspecified iron deficiency anemia type (ICD-10 - D50.9) He says he has been forgetting to take his iron pills. His ferritin has fallen to 15. We discussed ways by which she could remember to take his medication on a daily basis. 04/15/2024 Iron deficiency anemia, unspecified iron deficiency anemia type (ICD-10 - D50.9) His ferritin has fallen to 15. He has been much more mindful of taking his iron therapy. A repeat ferritin and CBC will be done in near future. His current hematocrit is 32.6. It is normochromic and normocytic. 04/28/2024 Iron deficiency anemia, unspecified iron deficiency anemia type (ICD-10 - D50.9) His ferritin has fallen to 15. He has been much more mindful of taking his iron therapy. A repeat ferritin and CBC will be done in near future. His current hematocrit is 32.6. It is normochromic and normocytic. 06/08/2024 Stage 3 chronic kidney disease (ICD-10 - N18.3) His renal function is slightly worse. He continues to hydrate himself well in the warm weather. His BUN is 36 and his creatinine is 2.12. His GFR has fallen to 31. He will follow up with renal. 07/07/2024 Macular degeneration of both eyes, unspecified type (ICD-10 - H35.30) He will continue to receive his bevacizumab injections from his [employer] ticket cashier. 07/12/2024 Iron deficiency anemia, unspecified iron deficiency anemia type (ICD-10 - D50.9) His ferritin which was 15 is now 32. He will continue on the ferrous gluconate. His hematocrit has improved to 33%. 08/26/2024 Tobacco dependence (ICD-10 - F17.200) I have discussed with him all of the long-term consequences of smoking and he is well aware of them. I have offered to refer him to smoking cessation programs at the [facility] and he will consider this. 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 I will continue. We will begin receiving denosumab. 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 I will continue. We will begin receiving denosumab. 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 I will continue. We will begin receiving denosumab. 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 I will continue. We will begin receiving denosumab. 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 I will continue. We will begin receiving denosumab. 2024 Tobacco dependence (ICD-10 - F17.200) I have discussed with him all of the long-term consequences of smoking and he is well aware of them. I have offered to refer him to smoking cessation programs at the [facility] and he will consider this. 03/30/2024 Vitamin B12 deficiency (ICD-10 - E53.8) He received an injection of 1000 mcg intramuscular injection in the right arm without difficulty. He will do this monthly. 04/15/2024 Peripheral arterial occlusive disease (ICD-10 - I77.9) He reports that his claudication is very mild and hardly bothers him. This seems not to be an active problem for him at this time. 04/28/2024 Peripheral arterial occlusive disease (ICD-10 - I77.9) He reports that his claudication is very mild and hardly bothers him. This seems not to be an active problem for him at this time. 06/08/2024 Peripheral arterial occlusive disease (ICD-10 - I77.9) He reports that his claudication is very mild and hardly bothers him. This seems not to be an active problem for him at this time. 07/07/2024 Stage 3 chronic kidney disease (ICD-10 - N18.3) His BUN has dropped from 36-30 and his GFR has improved to 35. His creatinine is improved from 2.12-1.87. Current therapy was continued. 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 I will continue. We will begin receiving denosumab. 08/26/2024 Peripheral arterial occlusive disease (ICD-10 - I77.9) He reports that his claudication is very mild and hardly bothers him. This seems not to be an active problem for him at this time. 10/14/2023 Chronic kidney disease, stage 3 unspecified (ICD-10 - N18.30) His GFR is 43. His BUN is lately. No change in his regimen as needed. 11/11/2023 Tobacco dependence (ICD-10 - F17.200) I have discussed with him all of the long-term consequences of smoking and he is well aware of them. I have offered to refer him to smoking cessation programs at the [facility] and he will consider this. 12/09/2023 Pernicious anemia (ICD-10 - D51.0) He received 1000 mcg of vitamin B12by intramuscular injection in the left armToday without difficulty. 01/06/2024 Peripheral arterial occlusive disease (ICD-10 - I77.9) Noninvasive testing is underway to calculate his RAUL. Further treatment dependent upon the opinion of the vascular surgeon. 02/03/2024 Pernicious anemia (ICD-10 - D51.0) He received 1000 mcg of vitamin B12by intramuscular injection in the left armToday without difficulty. 2024 Overweight (ICD-10 - E66.3) He is only very slightly overweight. At this point. I recommended weight stabilization through healthy diet and regular exercise. 03/30/2024 Macular degeneration of both eyes, unspecified type (ICD-10 - H35.30) He will continue to receive his bevacizumab injections from his [employer] cashier. 04/15/2024 Macular degeneration of both eyes, unspecified type (ICD-10 - H35.30) He will continue to receive his bevacizumab injections from his [employer] ticket cashier. 04/28/2024 Macular degeneration of both eyes, unspecified type (ICD-10 - H35.30) He will continue to receive his bevacizumab injections from his [employer] ticket cashier. 06/08/2024 Tobacco dependence (ICD-10 - F17.200) I have discussed with him all of the long-term consequences of smoking and he is well aware of them. I have offered to refer him to smoking cessation programs at the [facility] and he will consider this. 07/07/2024 Complete lesion at T11-T12 level of thoracic [...] him to smoking cessation programs at the [facility] and he will consider this. 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 I will continue. We will begin receiving denosumab. 10/14/2023 Age-related cataract of both eyes, unspecified age-related cataract type (ICD-10 - H25.9) He is medically cleared for bilateral cataract extraction with a normal risk of a man his age. There is no contraindication to surgery. 11/11/2023 Pernicious anemia (ICD-10 - D51.0) He received 1000 mcg of vitamin B12by intramuscular injection in the left armToday without difficulty. 01/06/2024 Tobacco dependence (ICD-10 - F17.200) I have discussed with him all of the long-term consequences of smoking and he is well aware of them. I have offered to refer him to smoking cessation programs at the [facility] and he will consider this. 02/03/2024 Tobacco dependence (ICD-10 - F17.200) I have discussed with him all of the long-term consequences of smoking and he is well aware of them. I have offered to refer him to smoking cessation programs at the [facility] and he will consider this. 2024 Peripheral arterial occlusive disease (ICD-10 - I77.9) Noninvasive testing is underway to calculate his RAUL. Further treatment dependent upon the opinion of the vascular surgeon. 03/30/2024 Peripheral arterial occlusive disease (ICD-10 - I77.9) He reports that his claudication is very mild and hardly bothers him. This seems not to be an active problem for him at this time. 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 I will continue. We will begin receiving denosumab. 04/28/2024 Pernicious anemia (ICD-10 - D51.0) He received 1000 mcg of vitamin B12by intramuscular injection in the left armToday without difficulty. 06/08/2024 Overweight (ICD-10 - E66.3) He is only very slightly overweight. At this point. I recommended weight stabilization through healthy diet and regular exercise. 07/07/2024 Peripheral arterial occlusive disease (ICD-10 - I77.9) He reports that his claudication is very mild and hardly bothers him. This seems not to be an active problem for him at this time. 07/12/2024 Pernicious anemia (ICD-10 - D51.0) He received 1000 mcg of vitamin B12by intramuscular injection in the left armToday without difficulty. 08/26/2024 Pernicious anemia (ICD-10 - D51.0) He received 1000 mcg of vitamin B12by intramuscular injection in the left armToday without difficulty. 01/06/2024 Pernicious anemia (ICD-10 - D51.0) He received 1000 mcg of vitamin B12by intramuscular injection in the left armToday without difficulty. 04/15/2024 B12 deficiency (ICD-10 - E53.8) He received a B12 injection today without difficulty in the left arm. 06/08/2024 Pernicious anemia (ICD-10 - D51.0) He received 1000 mcg of vitamin B12by intramuscular injection in the left armToday without difficulty. 07/07/2024 Tobacco dependence (ICD-10 - F17.200) I have discussed with him all of the long-term consequences of smoking and he is well aware of them. I have offered to refer him to smoking cessation programs at the [facility] and he will consider this. 07/12/2024 Furuncle (ICD-10 - L02.92) He will use warm compresses on the area and avoid squeezing it. He will take doxycycline for a week. He will call me at once if anything worsens. 08/26/2024 Overweight (ICD-10 - E66.3) He has lost 5 pounds since his last visit and is no longer overweeight. His weight will be followed carefully. We discussed diet and nutrition today. 07/07/2024 Pernicious anemia (ICD-10 - D51.0) He received 1000 mcg of vitamin B12by intramuscular injection in the left armToday without difficulty. Plan Of Treatment Pending Test Test Name Order Date US LEG UNILATERAL ARTERY 05/30/2021 US LEG UNILATERAL ARTERY 06/05/2021 Next Appt Details Provider Name:Jose G Dickerson, 09/27/2024 11:00:00 AM, [address] [facility] [address], [place], [phone], Provider Name:Jose G Dickerson, 04/19/2025 02:00:00 PM, [address] [facility] [address], [place], [phone], Insurance Providers Payer Name Payer Address Payer Phone Subscriber Number Group Number Insured Name Patient Relationship to Insured Coverage Start Date Coverage End Date MEDICARE N[place] [address] [place] [address] [id number] MACI BARAHONA Self - patient is the insured [facility] [address] [place], [place] [id number] MACI BARAHONA Self - patient is the insured Medical (General) History Medical History History ICD Code Hypertension I10 Hyperlipidemia E78.5 carcinoma of the 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 Jacob CKD stage III, hypertensive nephrosclero sis iron deficiency anemia urinary incontinence history of back surgery tobacco dependence renal cysts overweight Scrotal abscess February 202208/2024 inpt at with UTI Surgical History Surgery Date(Month/Year) No history Cataract Surgery, right eye 2023 Surgical drainage of scrotal abscess under anesthesia [facility] 03/2022 history of back surgery 02/2022 cryoablation of the prostate 2014 excision draining scrotal sinus 2013 incision and drainage left lateral thigh abscess 2008 Hospitalization History Reason Date(Month/Year) inpt at with UTI 08/2024 No history Drainage of scrotal abscess. [facility] 03/2022 Posterior Fusion Lumbar spine L3- L4 2021 CKD, CHF and HTN 08/2021
--- OUTSIDE RECORDS SUMMARY | 2024-09-16 13:47 | XMS_ITS | Encounter Summary ---
Author Organization [facility] Address [address] [place] [address] Phone Care Team Providers Care Director Cloud Transformation Name Role Phone Jose G Dickerson MD Primary Care Provider [phone] Reason for Visit * Reason Comments Med Refill Encounter Details Date Type Department Care Team (Late st Contact Info) Description 02/11/2023 [facility]ill [facility] [address] [place] [phone] Jon Ma MD Social History Tobacco Use [...] on filedocumented in this encounter Care Teams Director Cloud Transformation Relationship Specialty Start Date End Date Jose G Dickerson MD [address] [place] [address] [address] [facility] - General Medical Oncology 04/05/21 documented as of this encounter
--- OUTSIDE RECORDS SUMMARY | 2024-09-16 13:47 | XMS_ITS ---
Author Organization Jose G Dickerson III, MD Address [address] [place] [address] Care Team Providers Care Retarder Operator Name Role Phone Jose G Dickerson Primary Care Provider REASON FOR VISIT Message Social History Sex Assigned At : Social History Observation Description Sex Assigned At Male Encounters Encounter Location Date Provider Diagnosis Jose G Dickerson III, MD [address] [place] [address] [place] [phone] 08/22/2024 Jose G Dickerson Plan Of Treatment Next Appt Details Provider Name:Jose G Dickerson, 09/27/2024 11:00:00 AM, [address] [place] [address] [place], [phone], Provider Name:Jose G Dickerson, 04/19/2025 02:00:00 PM, [address] [place] [address] [place], [phone], Progress Notes * MACI RAMOS PDOB:1949 (74 yo M)Acc No.[id number]:08/22/2024 Patient:?MACI RAMOS :1950???Age:74 Y???Sex:Male Address:[address] [place], [address] * true * Date:? Generated for Printi ng/Faxing/eTransmitting on:?09/16/2024 01:47 PM EDT
--- OUTSIDE RECORDS SUMMARY | 2024-09-16 13:47 | XMS_ITS | Clinical Summary ---
Author Organization [facility] Address [address] [place] [address] Phone Care Team Providers Care Forestry Support Specialist Name Role Phone Jose G Dickerson MD Primary Care Provider [phone] Allergies No known active allergies Medications No [...] Due Date Last Done Comments Pneumococcal Vaccine: 50+ Ye ars (1 of 2 - PCV) 1967 Influenza Vaccine (Season Ended) 2025 Hepatitis B Vaccine Aged Out No longe r eligible based on patient's age to complete this topic Insurance [facility] [place] [id number] [facility] Medicare Care Teams Forestry Support Specialist Relationship Specialty Start Date End Date Jose G Dickerson MD [address] [place] [address] [address] [place] [place] PCP - General Medical Oncology 04/05/21
--- OUTSIDE RECORDS SUMMARY | 2024-09-16 13:47 | XMS_ITS ---
Author Organization Jose G Dickerson III, MD Address [address] [place] [address] Care Team Providers Care Weaving Instructor Name Role Phone Jose G Dickerson Primary Care Provider REASON FOR VISIT Message Social History Sex Assigned At : Social History Observation Description Sex Assigned At Male Encounters Encounter Location Date Provider Diagnosis Jose G Dickerson III, MD [address] [place] [address] [place] [address] 08/26/2024 Jose G Dickerson Plan Of Treatment Next Appt Details Provider Name:Jose G Dickerson, 09/27/2024 11:00:00 AM, [address] [place] [address] [place], [phone], Provider Name:Jose G Dickerson, 04/19/2025 02:00:00 PM, [address] [place] [address] [place], [address], Progress Notes * MACI RAMOS PDOB:1949 (74 yo M)Acc No.[id number]:08/26/2024 Patient:?MACI RAMOS :1950???Age:74 Y???Sex:Male Address:[address] [place], [address] * true * Date:? Generated for Printi ng/Faxing/eTransmitting on:?09/16/2024 01:47 PM EDT
--- OUTSIDE RECORDS SUMMARY | 2024-09-16 13:47 | XMS_ITS ---
Author Organization Jose G Dickerson III, MD Address [address] [facility] [place] [address] Care Team Providers Care Sanitation Lead Name Role Phone Jose G Dickerson Primary Care Provider Allergies Allergen (clinical drug ingredient) Drug/Non Drug Allergy documented on EMR Reaction Allergy Type Onset Date Status No Known Drug Allergy Unknown Drug Allergy Active Reason For Referral Reason Consult and Treat MRI done at [facility] on 08/08/2024 Spinal Canal Stenosis L3-4 Herniated Disc Diagnosis 1 Herniated lumbar int ervertebral disc (M51.26) Diagnosis 2 Spinal stenosis, lum bosacral region (M48.07) Referral Organization Jose G Dickerson III, MD Referring Provider First Name Jose G Referring Provider Last Name Jayla Referring Provider Speciality Internal M edicine Referred Provider ROD PLATA Referred Provider Specialty Neurosurgery General Notes Elvira Castle 08/29/2024 11:10:35 AM > Referral, progress note and recent MRI faxed. Referral Priority Routine REASON FOR VISIT Hospital Follow up, UTI, Pernicious anemia, Metastatic prostate cancer, Chronic pain, Hypertension,Anemia, Peripheral arterial disease, Tobacco dependence, Herniated lumbar disc Medications Medication SIG (Take, Route, Frequency, Duration) Notes Start Date End Date Status Cyanocobalamin 1000 MCG/ML 1 mL Injection 03/31/20 24 Active Ferrous Gluconate 324 (38 Fe) MG 1 tablet Orally daily 03/30/2024 Active Social History Tobacco Use: Social History [...] cigs/day) Vital Signs Temperature 97.2 degrees Fahrenheit 08/27/19 25 Blood pressure systolic 102 mm Hg 08/27/19 25 Blood pressure diastolic 70 mm Hg 025 Heart Rate 88 /min 08/26/2024 Height 69 in 08/26/2024 Weight 164 lbs 08/26/2024 BMI 24.22 kg/m2 08/26/2024 Encounters Encounter Location Date Provider Diagnosis Jose G Dickerson III, MD [address] [place] [address] [place] [address] 08/26/2024 Jose G Dickerson Prostate cancer C61 ; Essential hypertension I10 ; Macular degeneration of both eyes, unspecified type H35.30 ; Stage 3 chronic kidney disease N18.3 ; Tobacco dependence F17.200 ; Peripheral arterial occlusive disease I77.9 ; 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 His pressure today is 102/70. 08/26/2024 Macular degeneration of both eyes, unspecified type (ICD-10 - H35.30) He will continue to receive his bevacizumab injections from his rim technician. 08/26/2024 Stage 3 chronic kidney disease (ICD-10 - N18.3) His BUN has dropped from 36-30 and his GFR has improved to 35. His creatinine is improved from 2.12-1.87. Current therapy was continued.He was seen in the hospital recently by nephrology consultation. Follow-up visit with renal was made upon discharge. 08/26/2024 Tobacco dependence (ICD-10 - F17.200) I have discussed with him all of the long-term consequences of smoking and he is well aware of them. I have offered to refer him to smoking cessation programs at the [facility] and he will consider this. 08/26/2024 Peripheral arterial occlusive disease (ICD-10 - I77.9) He reports that his claudication is very mild and hardly bothers him. This seems not to be an active problem for him at this time. 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 I will continue. We will begin receiving denosumab. 08/26/2024 Pernicious anemia (ICD-10 - D51.0) He received 1000 mcg of vitamin B12by intramuscular injection in the left armToday without difficulty. 08/26/2024 Overweight (ICD-10 - E66.3) He has lost 5 pounds since his last visit and is no longer overweeight. His weight will be followed carefully. We discussed diet and nutrition today. Plan Of Treatment Medication Medication Name Sig Start Date Stop Date Notes Cyanocobalamin 1000 MCG/ML 1 mL Injection 03/31/2024 Ferrous Gluconate 324 (38 Fe) MG 1 tablet Orally daily Referrals Referral Date Details 08/26/2024 08/26/2024, Consult and Treat MRI done at [facility] on 08/08/2024 Spinal Canal Stenosis L3-4 Herniated Disc, ROD PLATA Next Appt Details Follow Up: 4 Weeks, Reason: Vitamin B12 Injection, OV Provider Name:Jose G Dickerson, 09/27/2024 11:00:00 AM, [address] [place] [address] , [facility] [place], [place], [address], Provider Name:Jose G Dickerson, 04/19/2025 02:00:00 PM, [address] [place] [address] [address], [place], [address], Progress Notes * MICHELLEMACI LERAM PDOB:1949 (74 yo M)Acc No.[id number]:08/26/2024 Patient:?MACI RAMOS Provider:?Jose G Dickerson MD :1950???Age:74 Y???Sex:Male Feng e:08/26/2024 Address:[address] [place] [address] [place], [id number] Subjective: * Chief Complaints: * ???Hospital Follow upUTIPern icious anemiaMetastatic prostate cancerChronic painHypertensionAnemiaPeripheral arterial diseaseTobacco dependenceHerniated lumbar disc * HPI: ???COVID-19 Screening:? On August 04, 2024 he came to the emergency room in [facility] complaining of and numbness in his lower extremities with muscle weakness.? He was admitted and discharged September 08, 2024.? He had an MRI of his thoracic spine that showed bone metastases particularly at T11 and T12 but no epidural extension.? An MRI of his lumbar spine showed improved pulmonary metastases.? A renal ultrasound showed no significant findings.? He became stronger in the hospital and was discharged home.? He is seen today in follow-up.? Be at his normal baseline.? He was given an injection of 1000 mcg of vitamin B12 in his left arm which he tolerated well.? Be seen once a months.? Comprehensive blood work will be done.? ?He is up-to-date with his visits to urology. ?Questions?Have you had any new onset fever, chills, cough, congestion, sore throat, shortness of breath, muscle aches??No * ROS:?General/Constitutional:?pain?Lower thoracic spine.?Chills?denies.?Fatigue?admits.?Fever?denies.?ENT:?Decreased hearing?mild.?Respiratory:?Cough?denies.?Cardiovascular:?Chest pain with exertion?denies.?Dyspnea on exertion?denies.?Shortness of breath?with exertion.?Gastrointestinal:?Constipation?occasional.?Decreased appetite?denies.?Diarrhea?denies.?Heartburn?denies.?Nausea?denies.?Rectal bleeding?denies.?Vomiting?denies.?Hematology:?bruising?denies.?petechiae?denies.?Swollen glands?none have been noted.?Genitourinary:?Frequent urination?twice a night.?Musculoskeletal:?Muscle aches?denies.?Painful joints?denies.?Sciatica?denies.?Weakness?that is generalized.?Skin:?Itching?denies.?Rash?denies.?Skin lesion(s)?denies.?Neurologic:?Difficulty speaking?denies.?Dizziness?denies.?Headache?denies.?Low back pain?denies.?Psychiatric:?Depressed mood?which is moderate.? * Medical History:? * Surgical History:?incision a nd drainage left lateral thigh abscess 2009excision draining scrotal sinus 2014cryoablation of the prostate 2015history of back surgery urgical drainage of scrotal abscess under anesthesia [facility]aract Surgery, right eye 2023No history * Hospitalization/Major Diagno stic Procedure:?CKD, CHF and HTN osterior Fusion Lumbar spine L3- L4 rainage of scrotal abscess. [facility] 03/2022No history inpt at with UTI 08/2024 * Family History:?Father: dece ased 65 yrs, [...] cigarette smoker ((1-9 cigs/day) ???He lives in [facility]. He is not a [employer]. He is and lives with his . He smokes 5 cigarettes per day. * Medications:?TakingCyanocoba jessica 1000 MCG/ML Solution 1 mL Injection Ferrous Gluconate 324 (38 Fe) MG Tablet 1 tablet Orally daily Taking Cyanocobalamin 1000 MCG/ML Solution 1 mL Injection Taking Ferrous Gluconate 324 (38 Fe) MG Tablet 1 tablet Orally daily DiscontinuedXgeva 120 MG/1.7ML Solution as directed Subcutaneous Once a month Medication List reviewed and reconciled with the patientDiscontinued Xgeva 120 MG/1.7ML Solution as directed Subcutaneous Once a month Medication List reviewed and reconciled with the patient * Allergies:?No Known Drug All ergyno[Allergies Verified] Objective: * Vitals:?Ht: 69, Wt:164, BMI: 24.22, BP:102/70, HR:88, Temp:97.2, Ht-cm: 175.26, Wt-k.39. * Examination: ???General Examination: ?GENERAL APPEARANCE:?pleasant, well nourished, well developed, in no acute distress, calm and relaxed, man.?HEAD:?atraumatic, normocephalic.?EYES:?eomi, perrla, anicteric, conjugate.?EARS:?normal.?NOSE:?septum intact.?ORAL CAVITY:?normal, unremarkable.?NECK/THYROID:?no jugular venous distention, no carotid bruit, thyroid normal.?LYMPH NODES:?no enlarged lymph nodes,spleen normal.?SKIN:?no suspicious lesions, anicteric.?HEART:?no clicks, gallops, murmurs, or rubs, regular rhythm, S1, S2 normal, no s3, or vascular bruits.?LUNGS:?, diminished breath sounds throughout, good air movement, no wheezes, rales, rhonchi.?BREASTS:??no masses palpable bilaterally.?ABDOMEN:?bowel sounds normal, no ascites, no organomegaly, no mass.?RECTAL EXAM:?not examined.?MUSCULOSKELETAL:?extremities unremarkable, no clubbing, cyanosis or edema, Diminished range of motion of the lumbar spine, radiation changes in the skin over T11 and T12.?PERIPHERAL PULSES:?Diminished in the lower extremities.?NEUROLOGIC:?alert and oriented, cranial nerves 2-12 grossly intact, deep tendon reflexes 2+ symmetrical, motor strength normal upper and lower extremities, sensory exam intact.?PSYCH:?alert, oriented, anxious appearing, speech diminished output, volume, mood depressed.? Assessment: * Assessment: 1.?Prostate cancer - C61 (Pr imary)???Notes :His PSA has fallen to From 0.25 to 0.13 and is now 0.12.. He is treated with Eligard. He was at one point taking Xtandi. He is currently asymptomatic and has gained weight.The spinal cord is intact without epidural invasion on recent MRIs of the thoracic and lumbar spine.? The MRI of lumbar spine showed improvement in the osseous metastases in the spine.? Current therapy with intermittent androgen deprivation therapy was continued.???2.?Essential hypertension - I10???Notes :His blood pressure has been controlled.. He iss asymptomatic. He says he feels like his usual self which is tired. He was not tachycardic. He will be observed carefully. His pressure today is 102/70.???3.?Macular degeneration of both eyes, unspecified type - H35.30???Notes :He will continue to receive his bevacizumab injections from his rim technician.???4.?Stage 3 chronic kidney disease - N18.3???Notes :His BUN has dropped from 36-30 and his GFR has improved to 35. His creatinine is improved from 2.12-1.87. Current therapy was continued.He was seen in the hospital recently by nephrology consultation.? Follow-up visit with renal was made upon discharge.???5.?Tobacco dependence - F17.200???Notes :I have discussed with him all of the long-term consequences of smoking and he is well aware of them. I have offered to refer him to smoking cessation programs at the [facility] and he will consider this.???6.?Peripheral arterial occlusive disease - I77.9???Notes :He reports that his claudication is very mild and hardly bothers him. 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 I will continue. We will begin receiving denosumab.???8.?Pernicious anemia - D51.0???Notes :He received 1000 mcg of vitamin B12by intramuscular injection in the left armToday without difficulty.???9.?Overweight - E66.3???Notes :He has lost 5 pounds since his last visit and is no longer overweeight.? His weight will be followed carefully.? We discussed diet and nutrition today.??? Plan: * Treatment: 2.?Others? Referral To:ROD PLATA??Neurosurgery ?Reason:Consult and Treat MRI done at [facility] on 08/08/2024 Spinal Canal Stenosis L3-4 Herniated Disc * Procedure Codes:? * Preventive Medicine:? ??Counseling:?Smoking/Tobacco Use?Patient counseled on the dangers of tobacco use and urged to quit.?08/26/2024 ?Patient Lifestyle Goals?Patient wants to quit ?Treatment Goals?Cut down by 1 cigarette a week, Set a quit date ?Barriers?Stress, Social smoker ?Self-Management Plan?Make a plan to cut down number of cigarettes over time and set a date to work towards quitting * Follow Up:?4 Weeks (Reason: Vitamin B12 Injection, OV) * Images: * Sign off status: Completed true * Provider:?Jose G Dickerson MD Date:?08/03 Generated for Kati aguilera/Jvoana/eTransmitting on:?09/16/2024 01:47 PM EDT History and Physical Notes * [...] normal, no s3, or vascular bruits LUNGS: , diminished breath sounds throughout, good air movement, no wheezes, rales, rhonchi ABDOMEN: bowel sounds normal, no ascites, no organomegaly, no mass NEUROLOGIC: alert and oriented, cranial nerves 2-12 grossly intact, deep tendon reflexes 2+ symmetrical, motor strength normal upper and lower extremities, sensory exam intact SKIN: no suspicious lesion s, anicteric PERIPHERAL PULSES: Diminished in the lo wer extremities BREASTS: no masses palpable b ilaterally MUSCULOSKELETAL: extremities unremark able, no clubbing, cyanosis or edema, Diminished range of motion of the lumbar spine, radiation changes in the skin over T11 and T12 LYMPH NODES: no enlarged lymph no ritesh,spleen normal RECTAL EXAM: not examined PSYCH: alert, oriented, anx ious appearing, speech diminished output, volume, mood depressed ORAL CAVITY: normal, unremarkable Consultation Request Notes Referral Date Referring Provider Referred Provider Not es 08/26/2024 Jose G Dickerson FREDERIK Consult and Treat MRI done at [facility] on 08/08/2024 Spinal Canal Stenosis L3-4 Herniated Disc
--- NOTE | 2024-09-16 14:00 | A.SPINEOV_ITS ---
Intake Visit Reasons: spinal canal stenosis/herniated disc Intake Note: Mr. Ramos is here today c/o low back pain. MRI done @ [facility]. Child Development Director Required: No Allergies No Known Allergies [No Known Allergies*] Allergy (Verified 08/04/24 10:34) Assessment & Plan Assessment & Plan (1) Lumbar spinal stenosis: Code(s): M48.061 - Spinal stenosis, lumbar region without neurogenic claudication Category: Medical Plan Dear colleague Thank you for referring Keshav Ramos to the office today with a chief complaint of severe right-sided back/hip pain. HPI: This 74-year-old male is complaining of a progressive pain on the right side of his back and hip with walking and standing. He has to lean over a shopping cart or sit down to relieve the symptoms. He had previous surgery lumbar surgery done and from the images it looks like he had an interspinous device placed at L3-4 with a decompression. The symptoms are debilitating. He has to walk with a cane. He also states he has intermittent numbness of his legs. No weakness. He is incontinent for urine related to prostate carcinoma. The prostate cancer has metastasized to the bones. He is currently taking iron for anemia. The following conservative treatment options were tried without success , tylenol, and physical therapy PMH: Prostate CA, anemia, chronic kidney disease stage 3, hypertension, wet macular degeneration Medications: Doxycycline, iron, oxycodone Allergies: NKDA Social history: . 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 Physical Exam: Pleasant male. He ambulates with a cane. On inspection of the lumbar spine is a well-healed scar. Straight leg raise is negative. Motor exam is 5/5 throughout. Sensory exam is intact. Reflexes are low. No pathological reflexes Radiological Studies: MRI done at [facility] on 08/08/2024 shows severe L3-4 spinal stenosis due to a disc herniation that obliterates the spinal canal. There are multiple metastatic abnormalities of the vertebral bodies. A CT of the pelvis shows a coflex device at L3-4 and a previous surgical defect at that level. Standing x-rays shows mild degenerative curve scoliosis Impression/Plan: This patient is suffering from neurogenic claudication due to severe L3-4 spinal stenosis with a large disc herniation on the right side. The pain is debilitating. I offered him an L3-4 decompression that includes removal of the disc herniation. I do need preoperative clearance before we will schedule him for surgery. Thank you for allowing me to participate in your patients care. total time spent was 50 minutes in counseling ,coordination of plan, personal review of imaging, surgical decision making and subsequent plan Blair Cuellar MD, PhD Spine Fellowship Trained Neurosurgeon Director, [facility] Coding Level of Care Code New Pt Level 4 (43870) Diagnoses Lumbar spinal stenosis M48.061
== END 2024-09-16 14:53 | disposition home or self-care (01) ==
PROVIDERS: PCP Internal Medicine Medical Oncology; Referring Provider Internal Medicine Medical Oncology; Visit Provider Neurological Surgery
DX: M48.061 Spinal stenosis, lumbar region without neurogenic claudication (principal)
CPT/HCPCS: 99204

== ENCOUNTER → 2024-09-16 13:42 | Outpatient (BNVA) | payer MEDICARE, SELFPAY | PROVIDERS: PCP Internal Medicine Medical Oncology; Visit Provider Neurological Surgery | DX: M48.061 Spinal stenosis, lumbar region without neurogenic claudication (principal) | CPT/HCPCS: 99202 ==

== ENCOUNTER 2024-09-22 08:39 | Outpatient (REF) | payer MEDICARE, SELFPAY ==
--- OUTSIDE RECORDS SUMMARY | 2024-09-22 08:50 | XMS_ITS | Encounter Summary ---
Author Organization [facility] Address [address] [facility] [address] [place] [address] Phone Care Team Providers Care Siderographist Name Role Phone Jose G Dickerson MD Primary Care Provider [phone] Reason for Visit * Reason Comments Med Refill Encounter Details Date Type Department Care Team (Late st Contact Info) Description 02/11/2023 [facility]ill [facility] [address] [place] [id number] Jon Ma MD Social History Tobacco Use [...] on filedocumented in this encounter Care Teams Siderographist Relationship Specialty Start Date End Date Jose G Dickerson MD [address] [place] [address] [address] [facility] [place] [facility] General Medical Oncology 04/05/21 documented as of this encounter
--- OUTSIDE RECORDS SUMMARY | 2024-09-22 08:50 | XMS_ITS | Clinical Summary ---
Author Organization [facility] [place] Address [address] [place] [address] Phone Care Team Providers Care Restaurant Area Manager Name Role Phone Jose G Dickerson MD Primary Care Provider [phone] Allergies No known active allergies Medications No [...] patient's age to complete this topic Insurance [facility] [place] [id number] [facility] Medicare Care Teams Restaurant Area Manager Relationship Specialty Start Date End Date Jose G Dickerson MD [address] [place] [address] [address] [place] PCP - General Medical Oncology 04/05/21
--- OUTSIDE RECORDS SUMMARY | 2024-09-22 08:50 | XMS_ITS ---
Author Organization Jose G Dickerson III, MD Address [address] [place] [address] Care Team Providers Care Supervising Deputy Name Role Phone Jose G Dickerson Primary Care Provider REASON FOR VISIT Message Social History Sex Assigned At : Social History Observation Description Sex Assigned At Male Encounters Encounter Location Date Provider Diagnosis Jose G Dickerson III, MD [address] [place] [address] [place] [address] 09/19/2024 Jose G Dickerson Plan Of Treatment Next Appt Details Provider Name:Jose G Dickerson, 09/27/2024 11:00:00 AM, [address] [place] [address] [place], [address], Provider Name:Jose G Dickerson, 04/19/2025 02:00:00 PM, [address] [place] [address] [place], [address], Progress Notes * MACI RAMOS PDOB:1949 (74 yo M)Acc No.[id number]:09/19/2024 Patient:?MACI RAMOS :1950???Age:74 Y???Sex:Male Address:[address] [place], [address] * true * Date:? Generated for Printi ng/Faxing/eTransmitting on:?09/22/2024 08:50 AM EDT
--- OUTSIDE RECORDS SUMMARY | 2024-09-22 08:50 | XMS_ITS | Patient Health Record ---
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 Name Role Phone Jose G Dickerson Primary Care Provider [phone] Allergies Allergen (clinical drug ingredient) Drug/Non Drug [...] Electrolytes Reviewed date:11/11/2023 11:17:03 AM Interpretation: Performing Lab:[facility], [address] [place] [address] Notes/Report: Sodium 144 135-145 mmol/L Potassium 5.7 3.3-5.1 mmol/L Slight Hemoly sis Chloride 111 96-108 mmol/L Carbon Dioxide 26 22-29 mmol/L Anion Gap 13 12-20 Potassium Reviewed date:11/11/2023 11:17:03 AM Interpretation: Performing Lab:[facility], [address] [place] [address] Notes/Report: Potassium 5.3 3.3-5.1 mmol/L Complete Blood Count Auto Di ff Reviewed date:12/07/2023 02:14:46 PM Interpretation: Performing Lab:[facility], [address] [place] [address] Notes/Report: White Blood Count 7.0 4.8-10.8 X10*3/uL [...] Panel Reviewed date:12/07/2023 02:14:46 PM Interpretation: Performing Lab:[facility], [address] [place] [address] Notes/Report: Sodium 141 135-145 mmol/L Potassium 5.1 3.3-5.1 mmol/L Chloride 111 96-108 mmol/L Carbon Dioxide 24 22-29 mmol/L Anion Gap 11 12-20 Blood Urea Nitrogen 29 9-16 mg/dL Creatinine 1.82 0.5-1.4 mg/dL Estimated Glomerular Filt Rate 36 NOTE: For -[place] individuals, multiply the result by 1.210. Chronic [...] Ferritin Reviewed date:12/07/2023 02:14:46 PM Interpretation: Performing Lab:[address] [address] Notes/Report: Ferritin 110 20-250 ng/mL Prostate Specific Antigen Reviewed date:12/07/2023 02:14:46 PM Interpretation: Performing Lab:[address] [address] Notes/Report: Prostate Specific Antigen 0.25 <0.05-4.0 ng/mL PSA methodology: Dominguez Alinity i Chemiluminescent Microparticle Immunoassay (CMIA) NM bone scan whole body Reviewed date:03/23/2024 09:17:18 AM Interpretation: Performing Lab: Notes/Report: [address] [address] Nuclear Medicine Report Signed Patient: Maci Conley MR#: [id number] : 1950 Acct:[id number] Age/Sex: 73 / M ADM Date: 02/24/24 Loc: RACHID Attending Dr: David Montana MD Ordering Physician: David Montana MD Date of Service: 02/24/24 Procedure(s): NM bone scan whole body Accession Number(s): [id number] cc: Jose G Dickerson MD; David Montana [...] by: Dusty Thompson MD 03/16/2024 12:32 PM [facility] Dictated By: Dusty Thompson MD Signed By: <Electronically signed by Dusty Thompson MD in OV> 03/16/24 1232 DD/ 1042 TD/TT: 02/24/24 1525 Breakfast And Room Attendant: SANJAY [place] [address] Nuclear Medicine Report Signed Patient: Jose D Conley MR#: [id number] : 1950 Acct:[id number] Age/Sex: 73 / M ADM Date: 02/24/24 Loc: RACHID Attending Dr: Laura Montana MD Ordering Physician: Dvaid Montana MD Date of Service: 02/24/24 Procedure(s): NM bon e scan whole body Accession Number(s): [id number] cc: Jose G Dickerson MD; David Montana [...] 03/16/24 1232 DD/ 1042 TD/TT: 02/24/24 1525 Breakfast And Room Attendant: SANJAY Complete Blood Count Auto Di ff Reviewed date:03/23/2024 09:17:17 AM Interpretation: Performing Lab:[facility], [address] [place] [address] Notes/Report: White Blood Count 6.8 4.8-10.8 X10*3/uL [...] Panel Reviewed date:03/23/2024 09:17:18 AM Interpretation: Performing Lab:[facility], [address] [place] [address] Notes/Report: Sodium 143 135-145 mmol/L Potassium 5.2 [...] Ferritin Reviewed date:03/23/2024 09:17:18 AM Interpretation: Performing Lab:[facility], [address] [place] [address] Notes/Report: Ferritin 15 20-250 ng/mL Prostate Specific Antigen Reviewed date:03/23/2024 09:17:18 AM Interpretation: Performing Lab:[facility], [address] [place] [address] Notes/Report: Prostate Specific Antigen 0.13 <0.05-4.0 ng/mL PSA methodology: Dominguez Alinity i Chemiluminescent Microparticle Immunoassay (CMIA) Vitamin B12 Reviewed date:03/23/2024 09:17:18 AM Interpretation: Performing Lab:[facility], [address] [place] [address] Notes/Report: Vitamin B12 665 200-900 pg/mL NORMAL 200-900 PG/ML INDETERMINATE 160-199 PG/ML DEFICIENT < 160 PG/ML XR mandible min 4V Reviewed date:04/24/2024 08:39:55 PM Interpretation: Performing Lab: Notes/Report: [address] [place] [address] XRay Report Signed Patient: Maci Conley MR#: [id number] : 1950 Acct:[id number] Age/Sex: 74 / M ADM Date: 04/16/24 Loc: HO.JAIROAY Attending Dr: Jose G Dickerson MD Ordering Physician: Jose G Dickerson MD Date of Service: 04/16/24 Procedure(s): XR mandible min 4V Accession Number(s): [id number] cc: Jose G Dickerson MD EXAMINATION: XR [...] by: Davion Upton MD 04/18/2024 11:29 AM [facility] Dictated By: Davion Upton MD Signed By: <Electronically signed by Davion Upton MD in OV> 04/18/24 1129 DD/ TD/TT: 04/16/2455 Breakfast And Room Attendant: ACTHY [address] [address] XRay Report Signed Patient: Jose D Conley MR#: [id number] : 1950 Acct:[id number] Age/Sex: 74 / M ADM Date: 04/16/24 Loc: HO.XRAY Attending Dr: Jose G Dickerson MD Ordering Physician: Jose G Dickerson MD Date of Service: 04/16/24 Procedure(s): XR man dible min 4V Accession Number(s): [id number] cc: Jose G Dickerson MD EXAMINATION: XR [...] by: Davion Upton MD 04/18/2024 11:29 AM [facility] Dictated By: Davion Upton MD Signed By: <Electronically signed by Davion Upton MD in OV> 04/18/24 1129 DD/ TD/TT: 04/16/24 0955 Breakfast And Room Attendant: CATHY Complete Blood Count Auto Di ff Reviewed date:07/01/2024 06:26:39 AM Interpretation: Performing Lab:[facility], [address] [place] [address] Notes/Report: White Blood Count 7.1 4.8-10.8 X10*3/uL [...] Panel Reviewed date:07/01/2024 06:26:39 AM Interpretation: Performing Lab:[facility], [address] [place] [address] Notes/Report: Sodium 142 135-145 mmol/L Potassium 5.1 [...] Ferritin Reviewed date:07/01/2024 06:26:39 AM Interpretation: Performing Lab:[facility], [address] [place] [address] Notes/Report: Ferritin 32 20-250 ng/mL Prostate Specific Antigen Reviewed date:07/01/2024 06:26:39 AM Interpretation: Performing Lab:[facility], [address] [place] [phone] Notes/Report: Prostate Specific Antigen 0.12 <0.05-4.0 ng/mL PSA methodology: Dominguez Alinity i Chemiluminescent Microparticle Immunoassay (CMIA) Vitamin B12 Reviewed date:07/01/2024 06:26:39 AM Interpretation: Performing Lab:[facility], [address] [place] [address] Notes/Report: Vitamin B12 797 200-900 pg/mL NORMAL 200-900 PG/ML INDETERMINATE 160-199 PG/ML DEFICIENT < 160 PG/ML Gram stain Reviewed date:07/11/2024 06:13:00 AM Interpretation: Performing Lab:[facility], [address] [place] [address] Notes/Report: Gram stain Gram stain results: Gram stain 2+ polys Gram stain 1+ Gram-positive cocci Routine Culture Reviewed date:07/11/2024 06:13:00 AM Interpretation: Performing Lab:[facility], [address] [place] [phone] Notes/Report: Routine Culture Report - external Routine Culture 1+ Mixed skin zander US abdominal aortic aneurysm Reviewed date:08/05/2024 03:27:00 PM Interpretation: Performing Lab: Notes/Report: [address] [address] Ultrasound Report Signed Patient: Maci Conley MR#: [id number] : 1950 Acct:[id number] Age/Sex: 74 / M ADM Date: 07/19/24 Loc: .US Attending Dr: Ricky Rendon MD Ordering Physician: Ricky Rendon MD Date of Service: 07/19/24 Procedure(s): US abdominal aortic aneurysm Accession Number(s): [id number] cc: Jose G Dickerson MD; Ricky Rendon [...] critical arterial disease Electronically signed by: Hugo Ralhp MD 07/20/2024 10:40 AM EDT Dictated By: Hugo Callejas MD Signed By: <Electronically signed by Hugo Haider MD in OV> 07/21/24 1217 DD/ 1303 TD/TT: 07/19/24 1406 Breakfast And Room Attendant: [place] [address] Ultrasound Report Signed Patient: Jose D Conley MR#: [id number] : 1950 Acct:[id number] Age/Sex: 74 / M ADM Date: 07/19/24 Loc: HO.US Attending Dr: Ricky Rendon MD Ordering Physician: Ricky Rendon MD Date of Service: 07/19/24 Procedure(s): US abdominal aortic aneurysm Accession Number(s): [id number] cc: Jose G Dickerson MD; Ricky Rendon [...] MD Signed By: <Electronically signed by Hugo Hadier MD in OV> 07/21/24 1217 DD/ 1303 TD/TT: 07/19/24 1406 Breakfast And Room Attendant: US arterial duplex BI w/ RAUL Reviewed date:08/05/2024 03:27:00 PM Interpretation: Performing Lab: Notes/Report: [address] [address] Ultrasound Report Signed Patient: Maci Conley MR#: [id number] : 1950 Acct:[id number] Age/Sex: 74 / M ADM Date: 07/19/24 Loc: HO.US Attending Dr: Ricky Rendon MD Ordering Physician: Ricky Rendon MD Date of Service: 07/19/24 Procedure(s): US arterial duplex BI w/ RAUL Accession Number(s): [id number] cc: Jose G Dickerson MD; Ricky Rendon [...] 07/21/24 1217 DD/ 1303 TD/TT: 07/19/24 1406 Breakfast And Room Attendant: [place] [address] Ultrasound Report Signed Patient: Jose D Conley MR#: [id number] : 1950 Acct:[id number] Age/Sex: 74 / M ADM Date: 07/19/24 Loc: HO.US Attending Dr: Ricky Rendon MD Ordering Physician: Ricky Rendon MD Date of Service: 07/19/24 Procedure(s): US art erial duplex BI w/ RAUL Accession Number(s): [id number] cc: Jose G Dickerson MD; Ricky Rendon [...] 07/21/24 1217 DD/ 1303 TD/TT: 07/19/24 1406 Breakfast And Room Attendant: Urine Culture Reviewed date:08/11/2024 08:13:59 PM Interpretation: Performing Lab:[facility], [address] [place] [address] Notes/Report: O:ESCCOL Escherichia coli Urine Culture ESBL [...] date:08/05/2024 03:27:00 PM Interpretation: Performing Lab: Notes/Report: [address] [address] [address] Scan Report Signed Patient: Maci Conley MR#: [id number] : 1950 Acct:[id number] Age/Sex: 74 / M ADM Date: 08/04/24 Loc: HO.ED Attending Dr: Ordering Physician: Bettie Suarez DO Date of Service: 08/04/24 Procedure(s): CT abdomen pelvis wo IV con Accession Number(s): [id number] cc: Jose G Dickerson MD; Bettie Suarez DO Report Number: [id number]: Total DLP = 411.00 mGy-cm EXAMINATION: CT [...] 08/04/24 1315 DD/ 1242 TD/TT: 08/04/24 1242 Breakfast And Room Attendant: [address] [address] [address] Scan Report Signed Patient: Jose D Conley MR#: [id number] : 1950 Acct:[id number] Age/Sex: 74 / M ADM Date: 08/04/24 Loc: HO.ED Attending Dr: Ordering Physician: Bettie Suarez DO Date of Service: 08/04/24 Procedure(s): CT abd omen pelvis wo IV con Accession Number(s): [id number] cc: Jose G Dickerson MD; Bettie Suarez [...] 08/04/24 1315 DD/ 1242 TD/TT: 08/04/24 1242 Breakfast And Room Attendant: thoracic spine xiomy/dileep zaldivar Reviewed date:08/05/2024 03:27:00 PM Interpretation: Performing Lab: Notes/Report: [address] [address] Magnetic Resonance Report Signed Patient: Maci Conley MR#: [id number] : 1950 Acct:[id number] Age/Sex: 74 / M ADM Date: 08/04/24 Loc: [facility] ([place], [place])-[address]: Violetta Tinsley MD Ordering Physician: Nathan Gastelum Date of Service: 08/04/24 Procedure(s): MR thoracic spine wo/w con Accession Number(s): [id number] cc: Nathan Gastelum; Jose G Dickerson MD [...] in OV> 08/04/24 1819 DD/ TD/TT: 08/04/241817 Breakfast And Room Attendant: [address] [address] Magnetic Resonance Report Signed Patient: Jose D Conley MR#: [id number] : 1950 Acct:[id number] Age/Sex: 74 / M ADM Date: 08/04/24 Loc: [facility] ([place], [place])- Attending Dr: Violetta Tinsley MD Ordering Physician: Nathan Gastelum Date of Service: 08/04/24 Procedure(s): MR shaver spine wo/w con Accession Number(s): [id number] cc: Nathan Gastelum; Jose G Dickerson MD [...] Crabtree MD on 08/04/2024 18:18:16 Dictated By: Joyb Lutz MD Signed By: <Electronically signed by Joby Lutz MD in OV> 08/04/241818 DD/ 17 TD/TT: 08/04/241817 Breakfast And Room Attendant: JAIRO chest 1V Reviewed date:08/05/2024 03:27:00 PM Interpretation: Performing Lab: Notes/Report: [address] [address] XRay Report Signed Patient: Maci Conley MR#: [id number] : 1950 Acct:[id number] Age/Sex: 74 / M ADM Date: 08/04/24 Loc: .ED Attending Dr: Ordering Physician: Bettie Suarez DO Date of Service: 08/04/24 Procedure(s): XR chest 1V Accession Number(s): [id number] cc: Jose G Dickerson MD; Bettie Suarez [...] 08/04/24 1212 DD/ 1153 TD/TT: 08/04/24 1159 Breakfast And Room Attendant: [place] [address] XRay Report Signed Patient: Jose D Conley MR#: [id number] : 1950 Acct:[id number] Age/Sex: 74 / M ADM Date: 08/04/24 Loc: .ED Attending Dr: Ordering Physician: Bettie Suarez DO Date of Service: 08/04/24 Procedure(s): XR chest 1V Accession Number(s): [id number] cc: Jose G Dickerson MD; Bettie Suarez [...] 08/04/24 1212 DD/ 1153 TD/TT: 08/04/24 1159 Breakfast And Room Attendant: Complete Blood Count no Diff Reviewed date:08/05/2024 03:27:00 PM Interpretation: Performing Lab:[facility], [address] [place] [address] Notes/Report: White Blood Count 9.6 4.8-10.8 X10*3/uL [...] Panel Reviewed date:08/05/2024 03:27:00 PM Interpretation: Performing Lab:[facility], [address] [place] [address] Notes/Report: Sodium 140 135-145 mmol/L Potassium 4.3 [...] Antigen Reviewed date:08/05/2024 03:27:00 PM Interpretation: Performing Lab:[facility], [address] [place] [address] Notes/Report: Prostate Specific Antigen 0.30 <0.05-4.0 ng/mL PSA methodology: Dominguez Alinity i Chemiluminescent Microparticle Immunoassay (CMIA) SARS-CoV2/FLU/RSV Reviewed date:08/05/2024 03:27:00 PM Interpretation: Performing Lab:[address] [address] Notes/Report: Influenza A PCR NEGATIVE Negative Influenza [...] by authorized laboratories. Testing performed on the [employer] GeneXpert utilizing real-time RT-PCR. All SARS CoV2 and positive influenza A/B results are reported to [facility]. CT head/brain wo con Reviewed date:08/07/2024 07:20:28 AM Interpretation: Performing Lab: Notes/Report: [address] [address] [address] Scan Report Signed Patient: Maci Conley MR#: [id number] : 1950 Acct:[id number] Age/Sex: 74 / M ADM Date: 08/04/24 Loc: .S3 357-[address]: Bassem Mehta MD Ordering Physician: Bassem Mehta MD Date of Service: 08/05/24 Procedure(s): CT head/brain wo IV con Accession Number(s): [id number] cc: Jose G Dickerson MD; Bassem Mehta MD Report Number: [id number]: Total DLP = 718.00 mGy-cm CLINICAL HISTORY: [...] in OV> 08/05/242055 DD/ 55 TD/TT: 08/05/242055 Breakfast And Room Attendant: [place] [address] CT Scan Report Signed Patient: Jose D Conley MR#: [id number] : 1950 Acct:[id number] Age/Sex: 74 / M ADM Date: 08/04/24 Loc: HO.S3 357-[address]: Joel Mehta MD Ordering Physician: Bassem Mehta MD Date of Service: 08/05/24 Procedure(s): CT head/brain wo IV con Accession Number(s): [id number] cc: Jose G Dickerson MD; Bassem Mehta [...] in OV> 08/05/242055 DD/ 55 TD/TT: 08/05/242055 Breakfast And Room Attendant: XR chest 2V Reviewed date:08/05/2024 03:27:00 PM Interpretation: Performing Lab: Notes/Report: [address] [address] XRay Report Signed Patient: Maci Conley MR#: [id number] : 1950 Acct:[id number] Age/Sex: 74 / M ADM Date: 08/04/24 Loc: .S3 357-[address]: Bassem Mehta MD Ordering Physician: Bassem Mehta MD Date of Service: 08/05/24 Procedure(s): XR chest 2V Accession Number(s): [id number] cc: Jose G Dickerson MD; Bassem Mehta [...] 08/05/24 1436 DD/ 135 TD/TT: 08/05/24 135 Breakfast And Room Attendant: [address] [address] XRay Report Signed Patient: Jose D Conley MR#: [id number] : 1950 Acct:[id number] Age/Sex: 74 / M ADM Date: 08/04/24 Loc: .S3 357-[address]: Joel Mehta MD Ordering Physician: Bassem Mehta MD Date of Service: 08/05/24 Procedure(s): XR chest 2V Accession Number(s): [id number] cc: Jose G Dickerson MD; Bassem Mehta [...] 08/05/24 1436 DD/ 1350 TD/TT: 08/05/24 135 Breakfast And Room Attendant: Eddie Sahu - Possible Hematolo gy Reviewed date:08/07/2024 07:20:28 AM Interpretation: Performing Lab:[facility], [address] [place] [address] Notes/Report: Hold Lav - Possible Hematology SEE NOTE Specimen will be held untested for 8 hours. Call Hematology if testing is desired. Basic Metabolic Panel Reviewed date:08/07/2024 07:20:28 AM Interpretation: Performing Lab:[facility], [address] [place] [address] Notes/Report: Sodium 140 135-145 mmol/L Potassium 4.0 [...] Procalcitonin Reviewed date:08/07/2024 07:20:28 AM Interpretation: Performing Lab:[facility], [address] [place] [address] Notes/Report: Procalcitonin 14.76 Procalcitonin (PCT) Reference Range: [...] results from different laboratories and methodologies. References: [place] [employer]/Society of Critical Care [...] summary for [facility] PCT SHARON. http://www.accessdat a.fda.fov/cdrh_docs/ reviews/R500289.pdf. Published May 2004. Accessed October 2016. Creatinine Urine Reviewed date:08/07/2024 07:20:28 AM Interpretation: Performing Lab:[facility], [address] [place] [address] Notes/Report: Creatinine Urine 77.77 Sodium Urine Random Reviewed date:08/07/2024 07:20:28 AM Interpretation: Performing Lab:[facility], [address] [place] [address] Notes/Report: Sodium Urine Random 56.0 Legionella Ag Urine Reviewed date:08/11/2024 08:13:59 PM Interpretation: Performing Lab:[address] [address] Notes/Report: Legionella Ag Urine Not Detected Not [...] or serogroups. THIS TEST WAS PERFORMED AT: [facility]/[address] [address] KAROL ARNDT MD,PHD MRSA Nasal Screen Reviewed date:08/07/2024 07:20:28 AM Interpretation: Performing Lab:[facility], [address] [place] [address] Notes/Report: MRSA Nasal PCR NEGATIVE Negative SA Nasal PCR NEGATIVE Negative MRSA Interpretation SEE NOTE MRSA target DNA not detected; SA target DNA not detected. A MRSA NEGATIVE, SA NEGATIVE test result does not preclude MRSA or SA nasal colonization. Strep Pneumo Ag urine Reviewed date:08/11/2024 08:13:59 PM Interpretation: Performing Lab:[facility], [address] [place] [address] Notes/Report: Strep Pneumo Ag urine Not Detected Not Detected THIS TEST WAS PERFORMED AT: [facility] [address] [address] KAROL ARNDT MD,PHD US renal BI Reviewed date:08/07/2024 07:20:28 AM Interpretation: Performing Lab: Notes/Report: [address] [address] Ultrasound Report Signed Patient: Maci Conley MR#: [id number] : 1950 Acct:[id number] Age/Sex: 74 / M ADM Date: 08/04/24 Loc: .S3 357-[address]: Bassem Mehta MD Ordering Physician: Bassem Mehta MD Date of Service: 08/06/24 Procedure(s): US renal BI Accession Number(s): [id number] cc: Jose G Dickerson MD; Bassem Mehta [...] signed by Julissa Castañeda MD in OV> 08/06/241228 DD/ 27 TD/TT: 08/06/241227 Breakfast And Room Attendant: [address] [address] Ultrasound Report Signed Patient: Jose D Conley MR#: [id number] : 1950 Acct:[id number] Age/Sex: 74 / M ADM Date: 08/04/24 Loc: [facility] 357[facility]: Joel Mehta MD Ordering Physician: Bassem Mehta MD Date of Service: 08/06/24 Procedure(s): US renal BI Accession Number(s): [id number] cc: Jose G Dickerson MD; Bassem Mehta [...] in OV> 08/06/24 122 DD/ TD/TT: 08/06/241227 Breakfast And Room Attendant: Basic Metabolic Panel Reviewed date:08/11/2024 08:13:59 PM Interpretation: Performing Lab:[facility], [address] [place] [address] Notes/Report: Sodium 142 135-145 mmol/L Potassium 3.8 [...] Peptide Reviewed date:08/07/2024 07:20:28 AM Interpretation: Performing Lab:[facility], [address] [place] [address] Notes/Report: B Type Natriuretic Peptide 191 <100 pg/mL Albumin Level Reviewed date:08/11/2024 08:13:59 PM Interpretation: Performing Lab:[facility], [address] [place] [address] Notes/Report: Albumin Level 2.6 3.5-5.0 g/dL Hold Lav - Possible Hematolo gy Reviewed date:08/11/2024 08:13:59 PM Interpretation: Performing Lab:[facility], [address] [place] [address] Notes/Report: Hold Lav - Possible Hematology SEE NOTE Specimen will be held untested for 8 hours. Call Hematology if testing is desired. Basic Metabolic Panel Reviewed date:08/11/2024 08:13:59 PM Interpretation: Performing Lab:[facility], [address] [place] [address] Notes/Report: Sodium 142 135-145 mmol/L Potassium 3.9 [...] Procalcitonin Reviewed date:08/11/2024 08:13:59 PM Interpretation: Performing Lab:[facility], [address] [place] [address] Notes/Report: Procalcitonin 3.54 Procalcitonin (PCT) Reference Range: [...] results from different laboratories and methodologies. References: [place] [employer]/Society of Critical Care [...] 510(k) substantial equivalence determination decision summary for [facility] PCT SHARON. http://www.accessdat a.fda.fov/cdr_docs/ reviews/F291089.pdf. Published May 2004. Accessed October 2016. MR lumbar spine wo/w con Reviewed date:08/11/2024 08:13:59 PM Interpretation: Performing Lab: Notes/Report: [address] [address] Magnetic Resonance Report Signed Patient: Maci Conley MR#: [id number] : 1950 Acct:[id number] Age/Sex: 74 / M ADM Date: 08/04/24 Loc: HO.S3 357-[address]: Violetta Tinsley MD Ordering Physician: Bassem Mehta MD Date of Service: 08/08/24 Procedure(s): MR lumbar spine wo/w con Accession Number(s): [id number] cc: Jose G Dickerson MD; Bassem Mehta [...] 08/09/24 0821 DD/ 1440 TD/TT: 08/08/24 1520 Breakfast And Room Attendant: [place] [address] Magnetic Resonance Report Signed Patient: Jose D oCnley MR#: [id number] : 1950 Acct:[id number] Age/Sex: 74 / M ADM Date: 08/04/24 Loc: .S3 357-[address]: Violetta Tinsley MD Ordering Physician: Bassem Mehta MD Date of Service: 08/08/24 Procedure(s): MR lum bar spine wo/w con Accession Number(s): [id number] cc: Jose G Dickerson MD; Bassem Mehta [...] 08/09/24 0821 DD/ 1440 TD/TT: 08/08/24 1520 Breakfast And Room Attendant: Reason For Referral Reason Evaluate and Treat Blood in Stool Diagnosis 1 Blood in stool (K92. 1) Referral Organization Jose G Dickerson III, MD Referring Provider First Name Jose G Referring Provider Last Name Jayla Referring Provider Speciality Internal edicine Referred Organization [facility] Referred Provider [facility] er, Gastroenterology Referred Address [address] [place] [address],[place], [place],[id number], Referred Provider Specialty Gastroentero logy General Notes D, Elvira 08/18/2024 04:05:39 PM > Referral was faxed. Referral Priority Routine Reason Consult and Treat MRI done at [facility] on 08/08/2024 Spinal Canal Stenosis L3-4 Herniated Disc Diagnosis 1 Herniated lumbar int ervertebral disc (M51.26) Diagnosis 2 Spinal stenosis, lum bosacral region (M48.07) Referral Organization Jose G Dickerson III, MD Referring Provider First Name Jose G Referring Provider Last Name Jayla Referring Provider Speciality Internal edicine Referred Provider [facility]ATA Referred Provider Specialty Neurosurgery General Notes D, Elvira 08/29/2024 11:10:35 AM > Referral, progress note and recent MRI faxed. Referral Priority Routine Referral Appointment Date 09/16/2024 Medications Medication SIG (Take, Route, Frequency, Duration) Notes Start Date End Date Status Cyanocobalamin 1000 MCG/ML 1 mL Injection 03/31/20 Active Ferrous Gluconate 324 (38 Fe) MG [...] Problem Status W/U Status Risk Notes Problem [id number] Overweight (E66.3) Active confirmed He has lost 5 pounds since his last visit and is no longer overweeight. His weight will be followed carefully. We discussed diet and nutrition today. Problem [id number] Prostate cancer (C61) Active confirmed His PSA [...] intermittent androgen deprivation therapy was continued. Problem [id number] B12 deficiency (E53.8) Active confirmed He received a B 12 injection today without difficulty in the left arm. 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 I will continue. We will begin receiving denosumab. Problem 55003472 Essential hypertension (I10) Active confirmed His blood pressure has been controlled.. He iss asymptomatic. He says he feels like his usual self which is tired. He was not tachycardic. He will be observed carefully. His pressure today is 102/70. Problem 49114817 Tobacco dependence (F17.200) Active confirmed I have discusse d with him all of the long-term consequences of smoking and he is well aware of them. I have offered to refer him to smoking cessation programs at the [facility] and he will consider this. Problem 47783144 Pernicious anemia (D51.0) Active confirmed He received 1 000 mcg of vitamin B12by intramuscular injection in the left armToday without difficulty. Problem 25953155 Iron deficiency anemia, unspecified iron deficiency anemia type (D50.9) Active confirmed His ferritin which was 15 is now 32. He will continue on the ferrous gluconate. His hematocrit has improved to 33%. Problem 923429207 Stage 3 chronic kidney disease (N18.3) Active confirmed His BUN has dropped from 36-30 and his GFR has improved to 35. His creatinine is improved from 2.12-1.87. Current therapy was continued.He was seen in the hospital recently by nephrology consultation. Follow-up visit with renal was made upon discharge. Problem 35996736 Age-related cataract of both eyes, unspecified age-related cataract type (H25.9) Active confirmed He is medically cleared for bilateral cataract extraction with a normal risk of a man his age. There is no contraindication to surgery. Problem 888967124 Macular degeneration of both eyes, unspecified type (H35.30) Active confirmed He will contin ue to receive his bevacizumab injections from his correctional case manager. Problem Peripheral arterial occlusive disease (500322018) Peripheral arterial occlusive disease (I77.9) Active confirmed He reports t hat his claudication is very mild and hardly bothers him. This seems not to be an active problem for him at this time. Problem Displacement of lumbar intervertebral disc without myelopathy (96817896) Herniated lumbar intervertebral disc (M51.26) Active confirmed Problem Chronic kidney disease stage 3 (disorder) (083974307) Chronic kidney disease, stage 3 unspecified (N18.30) Active confirmed His GFR is 43. His BUN is lately. No change in his regimen as needed. Problem Chronic kidney disease stage 3A (disorder) (645552096) Chronic kidney disease, stage 3a (N18.31) Active confirmed Vital Signs Heart Rate 88 /min 08/26/2024 Temperature 97.2 degrees Fahrenheit 08/26/2024 Blood pressure diastolic 70 mm Hg 08/26/2024 Height 69 in 08/26/2024 Blood pressure systolic 102 mm Hg 08/26/2024 Weight 164 lbs 08/26/2024 BMI 24.22 kg/m2 08/26/2024 Encounters Encounter Location Date Provider Diagnosis Jose G Dickerson III, MD [address] [place] [address] [place] [address] 10/14/2023 Jose G Hurtne Prostate cancer C61 [...] type H25.9 Jose G Dickerson III, MD [address] [place] [address] [place] [address] 11/11/2023 Jose G Hurtne Prostate cancer C61 ; Iron deficiency anemia, unspecified iron deficiency anemia type D50.9 ; Essential hypertension I10 ; Macular degeneration of both eyes, unspecified type H35.30 ; Stage 3 chronic kidney disease N18.3 ; 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, initial encounter S24.114A ; Tobacco dependence F17.200 and Pernicious anemia D51.0 Jose G Dickerson III, MD [address] [place] [address] [place] [address] 12/09/2023 Jose G Hurtne Prostate cancer C61 ; Essential hypertension I10 ; Stage 3 chronic kidney disease N18.3 ; Tobacco dependence F17.200 ; Peripheral arterial occlusive disease I77.9 ; 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, initial encounter S24.114A and Pernicious anemia D51.0 Jose G Dickerson III, MD [address] [place] [address] [place] [address] 01/06/2024 Jose G Hurtne Prostate cancer C61 [...] anemia D51.0 Jose G Dickerson III, MD [address] [place] [address] [place] [address] 02/03/2024 Jose G Dickerson Prostate cancer C61 ; Essential hypertension I10 ; Macular degeneration of both eyes, unspecified type H35.30 ; Stage 3 chronic kidney disease N18.3 ; Iron deficiency anemia, unspecified iron deficiency anemia type D50.9 ; 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, initial encounter S24.114A ; Pernicious anemia D51.0 and Tobacco dependence F17.200 Jose G Dickerson III, MD [address] [place] [address] [place] [address] 2024 Jose G Dickerson Essential hypertensi on I10 ; Prostate cancer C61 ; Iron deficiency anemia, unspecified iron deficiency anemia type D50.9 ; Vitamin B12 deficiency E53.8 ; Stage 3 chronic kidney disease N18.3 ; Tobacco dependence F17.200 ; Overweight E66.3 and Peripheral arterial occlusive disease I77.9 Jose G Dickerson III, MD [address] [place] [address] [place] [address] 03/30/2024 Jose G Dickerson Essential hypertensi on I10 ; Prostate cancer C61 ; Stage 3 chronic kidney disease N18.3 ; Tobacco dependence F17.200 ; Iron deficiency anemia, unspecified iron deficiency anemia type D50.9 ; Vitamin B12 deficiency E53.8 ; Macular degeneration of both eyes, unspecified type H35.30 and Peripheral arterial occlusive disease I77.9 Jose G Dickerson III, MD [address] [place] [address] [place] [address] 04/15/2024 Jose G Dickerson Essential hypertensi on [...] deficiency E53.8 Jose G Dickerson III, MD [address] [place] [address] [place] [address] 04/28/2024 Jose G Dickerson Essential hypertensi on I10 ; Prostate cancer C61 ; Stage 3 chronic kidney disease N18.3 ; Tobacco dependence F17.200 ; Iron deficiency anemia, unspecified iron deficiency anemia type D50.9 ; Peripheral arterial occlusive disease I77.9 ; Macular degeneration of both eyes, unspecified type H35.30 and Pernicious anemia D51.0 Jose G Dickerson III, MD [address] [place] [address] [place] [address] 06/08/2024 Jose G Dickerson Essential hypertensi on I10 ; Prostate cancer C61 ; Iron deficiency anemia, unspecified iron deficiency anemia type D50.9 ; Macular degeneration of both eyes, unspecified type H35.30 ; Stage 3 chronic kidney disease N18.3 ; Peripheral arterial occlusive disease I77.9 ; Tobacco dependence F17.200 ; Overweight E66.3 and Pernicious anemia D51.0 Jose G Dickerson III, MD [address] [place] [address] [place] [address] 07/07/2024 Jose G Dickerson Essential hypertensi on [...] anemia D51.0 Jose G Dickerson III, MD [address] [place] [address] [place] [address] 07/12/2024 Jose G Dickerson Essential hypertensi on [...] Furuncle L02.92 Jose G Dickerson III, MD [address] [place] [address] [place] [address] 08/26/2024 Jose G Dickerson Prostate cancer C61 ; Essential hypertension I10 ; Macular degeneration of both eyes, unspecified type H35.30 ; Stage 3 chronic kidney disease N18.3 ; Tobacco dependence F17.200 ; Peripheral arterial occlusive disease I77.9 ; 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, initial encounter S24.114A ; Pernicious anemia D51.0 and Overweight E66.3 Jose G Dickerson III, MD [address] [place] [address] [address] [place], [place] [address] 11/17/2023 Jose G Dickerson III, MD [address] [place] [address] [place] [address] 08/15/2024 Jose G Dickerson III, MD [address] [place] [address] [place] [address] 08/22/2024 Jose G Dickerson III, MD [address] [place] [address] [place] [address] 08/26/2024 Jose G Dickerson III, MD [address] [place] [address] [place] [address] 09/19/2024 Jose G Dickerson Assessments Encounter Date Diagnosis [...] to receive his bevacizumab injections from his correctional case manager. 02/03/2024 Macular degeneration of both eyes, unspecified type (ICD-10 - H35.30) He will continue to receive his bevacizumab injections from his correctional case manager. 2024 Iron deficiency anemia, unspecified iron deficiency [...] to receive his bevacizumab injections from his correctional case manager. 08/26/2024 Macular degeneration of both eyes, unspecified type (ICD-10 - H35.30) He will continue to receive his bevacizumab injections from his correctional case manager. 10/14/2023 Pernicious anemia (ICD-10 - D51.0) He received 1000 mcg of vitamin B12by intramuscular injection in the left armToday without difficulty. 11/11/2023 Macular degeneration of both eyes, unspecified type (ICD-10 - H35.30) He will continue to receive his bevacizumab injections from his correctional case manager. 12/09/2023 Tobacco dependence (ICD-10 - F17.200) I have discussed with him all of the long-term consequences of smoking and he is well aware of them. I have offered to refer him to smoking cessation programs at the [facility] and he will consider this. 01/06/2024 Stage [...] him to smoking cessation programs at the [facility] and he will consider this. 04/15/2024 Tobacco dependence (ICD-10 - F17.200) I have discussed with him all of the long-term consequences of smoking and he is well aware of them. I have offered to refer him to smoking cessation programs at the [facility] and he will consider this. 04/28/2024 Tobacco dependence (ICD-10 - F17.200) I have discussed with him all of the long-term consequences of smoking and he is well aware of them. I have offered to refer him to smoking cessation programs at the [facility] and he will consider this. 06/08/2024 Macular degeneration of both eyes, unspecified type (ICD-10 - H35.30) He will continue to receive his bevacizumab injections from his correctional case manager. 07/07/2024 Iron deficiency anemia, unspecified iron deficiency [...] to receive his bevacizumab injections from his correctional case manager. 07/12/2024 Iron deficiency anemia, unspecified iron deficiency [...] him to smoking cessation programs at the [facility] and he will consider this. 10/14/2023 Complete [...] him to smoking cessation programs at the [facility] and he will consider this. 03/30/2024 Vitamin [...] him to smoking cessation programs at the [facility] and he will consider this. 12/09/2023 Pernicious [...] to receive his bevacizumab injections from his correctional case manager. 04/15/2024 Macular degeneration of both eyes, unspecified type (ICD-10 - H35.30) He will continue to receive his bevacizumab injections from his correctional case manager. 04/28/2024 Macular degeneration of both eyes, unspecified type (ICD-10 - H35.30) He will continue to receive his bevacizumab injections from his correctional case manager. 06/08/2024 Tobacco dependence (ICD-10 - F17.200) I have discussed with him all of the long-term consequences of smoking and he is well aware of them. I have offered to refer him to smoking cessation programs at the [facility] and he will consider this. 07/07/2024 Complete [...] him to smoking cessation programs at the [facility] and he will consider this. 08/26/2024 Complete [...] him to smoking cessation programs at the [facility] and he will consider this. 02/03/2024 Tobacco dependence (ICD-10 - F17.200) I have discussed with him all of the long-term consequences of smoking and he is well aware of them. I have offered to refer him to smoking cessation programs at the [facility] and he will consider this. 2024 Peripheral [...] him to smoking cessation programs at the [facility] and he will consider this. 07/12/2024 Furuncle [...] Name:Jose G Dickerson, 09/27/2024 11:00:00 AM, [address] [facility] [address], [place], [address], Provider Name:Jose G Dickerson, 04/19/2025 02:00:00 PM, [address] [facility] [address], [place], [address], Insurance Providers Payer Name Payer Address Payer Phone Subscriber Number Group Number Insured Name Patient Relationship to Insured Coverage Start Date Coverage End Date MEDICARE NGS [address] [place] [address] [id number] MACI BARAHONA Self - patient is the insured [employer] [address] [place], [place] [id number] MACI BARAHONA Self - patient is the insured Medical (General) History Medical History History ICD Code Hypertension I10 Hyperlipidemia E78.5 carcinoma of the prostate and 2011 in remission after radiation and cryoablation excised scrotal abscess left lateral thigh abscess incised and d rained February 2009 macular degeneration, Dr. Jacob CKD stage III, hypertensive nephrosclero sis iron deficiency anemia urinary incontinence history of back surgery tobacco dependence renal cysts overweight Scrotal abscess February 202208/2024 inpt at with UTI Surgical History Surgery Date(Month/Year) No history Cataract Surgery, right eye 2023 Surgical drainage of scrotal abscess under anesthesia [facility] 03/2022 history of back surgery 02/2022 cryoablation of the prostate 2014 excision draining scrotal sinus 2013 incision and drainage left lateral thigh abscess 2008 Hospitalization History Reason Date(Month/Year) inpt at with UTI 08/2024 No history Drainage of scrotal abscess. [facility] 03/2022 Posterior Fusion Lumbar spine L3- L4 2021 CKD, CHF and HTN 08/2021
--- OUTSIDE RECORDS SUMMARY | 2024-09-22 08:50 | XMS_ITS ---
Author Organization Jose G Dickerson III, MD Address [address] [facility] [place] [address] Care Team Providers Care Metal Pickling Equipment Operator Name Role Phone Jose G Dickerson Primary Care Provider [phone] Allergies Allergen (clinical drug ingredient) Drug/Non Drug Allergy documented on EMR Reaction Allergy Type Onset Date Status No Known Drug Allergy Unknown Drug Allergy Active Reason For Referral Reason Consult and Treat MRI done at [facility] on 08/08/2024 Spinal Canal Stenosis L3-4 Herniated [...] Referral Priority Routine Referral Appointment Date 09/16/2024 REASON FOR VISIT Hospital Follow up, UTI, [...] Provider Diagnosis Jose G Dickerson III, MD [address] [place] [address] [place] [address] 08/26/2024 Jose G Dickerson Prostate cancer C61 [...] to receive his bevacizumab injections from his pusher runner. 08/26/2024 Stage 3 chronic kidney disease (ICD-10 [...] him to smoking cessation programs at the [facility] and he will consider this. 08/26/2024 [...] 08/26/2024, Consult and Treat MRI done at [facility] on 08/08/2024 Spinal Canal Stenosis L3-4 Herniated Disc, ROD PLATA Next Appt Details Follow Up: 4 Weeks, Reason: Vitamin B12 Injection, OV Provider Name:Jose G Norrisrne, 09/27/2024 11:00:00 AM, [address] [place] [address] , [address], [place], [address], Provider Name:Jose G Dickerson, 04/19/2025 02:00:00 PM, [address] [place] [address] [address], [place], [address], Progress Notes * JARVIS MACI PDOB:1949 (74 yo M)Acc No.[id number]:08/26/2024 Patient:?MICHELLEMARIA GUADALUPE MACI P Provider:?Jose G Dickerson MD :1950???Age:74 Y???Sex:Male Feng e:08/26/2024 Address:[address] [place] [address] [phone] Subjective: * Chief Complaints: * ???Hospital Follow upUTIPern icious anemiaMetastatic prostate cancerChronic painHypertensionAnemiaPeripheral arterial diseaseTobacco dependenceHerniated lumbar disc * HPI: ???COVID-19 Screening:? On August 04, 2024 he came to the emergency room in [facility] complaining of and numbness in his lower [...] urgical drainage of scrotal abscess under anesthesia [facility] ataract Surgery, right eye 2023No history * Hospitalization/Major Diagno stic Procedure:?CKD, CHF and HTN osterior Fusion Lumbar spine L3- L4 rainage of scrotal abscess. [facility] 03/2022No history inpt at with UTI [...] cigarette smoker ((1-9 cigs/day) ???He lives in [facility]. He is not a [employer]. He is and lives with his . [...] to receive his bevacizumab injections from his pusher runner.???4.?Stage 3 chronic kidney disease - N18.3???Notes :His [...] him to smoking cessation programs at the [facility] and he will consider this.???6.?Peripheral arterial [...] PLATA??Neurosurgery ?Reason:Consult and Treat MRI done at [facility] on 08/08/2024 Spinal Canal Stenosis L3-4 Herniated [...] G Dickerson MD Date:?08/03 Generated for Kati aguilera/Jovana/eTransmitting on:?09/22/2024 08:50 AM EDT History and Physical Notes * HPI [...] FREDERIK Consult and Treat MRI done at [facility] on 08/08/2024 Spinal Canal Stenosis L3-4 Herniated Disc
--- OUTSIDE RECORDS SUMMARY | 2024-09-22 08:51 | XMS_ITS ---
Author Organization Jose G Dickerson III, MD Address [address] [place] [address] Care Team Providers Care Fund Raiser Name Role Phone Jose G Dickerson Primary Care Provider [phone] REASON FOR VISIT Message Social History Sex Assigned At : Social History Observation Description Sex Assigned At Male Encounters Encounter Location Date Provider Diagnosis Jose G Dickerson III, MD [address] [place] [address] [place] [address] 08/26/2024 Jose G Dickerson Plan Of Treatment Next Appt Details Provider Name:Jose G Dickerson, 09/27/2024 11:00:00 AM, [address] [place] [address] [place], [address], Provider Name:Jose G Dickerson, 04/19/2025 02:00:00 PM, [address] [place] [address] [place], [address], Progress Notes * MACI RAMOS PDOB:1949 (74 yo M)Acc No.[id number]:08/26/2024 Patient:?MACI RAMOS :1950???Age:74 Y???Sex:Male Address:[address] [place], [address] * true * Date:? Generated for Printi ng/Faxing/eTransmitting on:?09/22/2024 08:50 AM EDT
[2024-09-22 09:01] LABS: MANUAL DIFF FLAG NO
[2024-09-22 09:18] LABS: Basophils Percent Auto 0.4 % (0-2); Eosinophils Absolute Auto 0.2 X10*3/uL (0.0-0.4); Eosinophils Percent Auto 2.1 % (0-4); Hematocrit 30.5 % (42.0-52.0); Hemoglobin 9.5 g/dl (14.0-18.0); Imm Gran Abs Auto 0.12 X10*3/uL (0.00-0.03); Imm Gran Pct Auto 1.2 % (0.0-0.4); Lymphocytes Absolute Auto 0.9 X10*3/uL (1.2-4.9); Lymphocytes Percent Auto 9.2 % (20-40); Mean Corpuscular HGB Conc 31.1 g/dl (31.0-36.0); Mean Corpuscular Hemoglobin 28.4 pg (27.0-33.0); Mean Corpuscular Volume 91.3 fL (80.0-98.0); Mean Platelet Volume 9.2 fL (9.4-12.4); Monocytes Percent Auto 10.6 % (2-11); Neutrophils Absolute Auto 7.5 x10*3/uL (2.0-8.3); Neutrophils Percent Auto 76.5 % (45-73); Platelet Count 294 X10*3/uL (160-400); Red Blood Count 3.34 X10*6/uL (4.60-5.80); Red Cell Distribution Width 14.8 % (11.0-16.0); White Blood Count 9.7 X10*3/uL (4.8-10.8)
[2024-09-22 11:17] LABS: Alanine Aminotransferase 6 U/L (0-40); Albumin Level 4.2 g/dL (3.5-5.0); Alkaline Phosphatase 93 U/L (39-117); Anion Gap 16 (12-20); Aspartate Amino Transferase 14 U/L (5-37); Bilirubin Total 0.2 mg/dL (0.0-1.0); Blood Urea Nitrogen 53 mg/dL (9-16); Calcium 9.1 mg/dL (8.4-10.2); Carbon Dioxide 21 mmol/L (22-29); Chloride 109 mmol/L (96-108); Estimated Glomerular Filt Rate 20; Glucose Random 111 mg/dL (60-115); Potassium 5.3 mmol/L (3.3-5.1); Sodium 141 mmol/L (135-145); Total Protein 7.6 g/dL (6.5-8.0)
[2024-09-22 12:25] LABS: Prostate Specific Antigen 0.23 ng/mL (<0.05-4.0)
[2024-09-26 17:43] LABS: Testosterone, Total 2 ng/dL (250-1100)
== END 2024-09-22 08:40 | disposition home or self-care (01) ==
LOC: HO.LAB 08:39
PROVIDERS: Internal Medicine Hypertension Specialist; Internal Medicine Medical Oncology; PCP Internal Medicine Medical Oncology; Visit Provider Urology
DX: C61 Malignant neoplasm of prostate (principal); C79.51 Secondary malignant neoplasm of bone; Z12.5 Encounter for screening for malignant neoplasm of prostate
CPT/HCPCS: 36415; 80053; 84153; 84403; 85025

== ENCOUNTER → 2024-09-27 13:10 | Outpatient (REF) | payer MEDICARE, SELFPAY ==
--- OUTSIDE RECORDS SUMMARY | 2024-09-27 13:14 | XMS_ITS | Encounter Summary ---
Author Organization [facility] Address [address] [facility] [address] [place] [address] Phone Care Team Providers Care It Support Engineer Name Role Phone Jose G Dickerson MD Primary Care Provider [phone] Reason for Visit * Reason Comments Med Refill Encounter Details Date Type Department Care Team (Late st Contact Info) Description 02/11/2023 [facility]ill [facility] [address] [place] [phone] Jon Ma MD Social History Tobacco Use [...] on filedocumented in this encounter Care Teams It Support Engineer Relationship Specialty Start Date End Date Jose G Dickerson MD [address] [place] [address] [address] [facility] 04/05/21 documented as of this encounter
--- NOTE | 2024-09-27 13:15 | ECG_ITS ---
Test Reason : i10 Blood Pressure : */* mmHG Vent. Rate : 85 BPM Atrial Rate : 85 BPM P-R Int : 158 ms QRS Dur : 78 ms QT Int : 358 ms P-R-T Axes : 63 64 46 degrees QTcB Int : 426 ms Normal sinus rhythm Normal ECG When compared with ECG of 04-Aug-2024 11:31, No significant change was found Referred By: Jose G Dickerson Electronically Signed By: BRIAN QUIÑONES MD
== END ==
LOC: HO.CARD 13:10
PROVIDERS: PCP Internal Medicine Medical Oncology; Visit Provider Internal Medicine Medical Oncology
DX: I10 Essential (primary) hypertension (principal); I77.9 Disorder of arteries and arterioles, unspecified
CPT/HCPCS: 93005

== ENCOUNTER → 2024-09-27 13:15 | Outpatient (BNV) | payer MEDICARE, SELFPAY | PROVIDERS: PCP Internal Medicine Medical Oncology; Visit Provider Internal Medicine Cardiovascular Disease | DX: I10 Essential (primary) hypertension (principal) | CPT/HCPCS: 93010 ==

== ENCOUNTER 2024-09-29 08:16 | Outpatient (AMB) | payer MEDICARE, SELFPAY ==
--- OUTSIDE RECORDS SUMMARY | 2024-09-29 08:21 | XMS_ITS ---
Author Organization Jose G Dickerson III, MD Address [address] [place] [address] [place] [address] Care Team Providers Care Call Center Dispatcher Name Role Phone Jose G Dickerson Primary Care Provider [phone] REASON FOR VISIT Message Social History Sex Assigned At : Social History Observation Description Sex Assigned At Male Encounters Encounter Location Date Provider Diagnosis Jose G Dickerson III, MD [address] [place] [address] [place] [address] 09/19/2024 Jose G Dickerson Plan Of Treatment Next Appt Details Provider Name:Jose G Dickerson, 04/19/2025 02:00:00 PM, [address] [place] [address] [address], [place], [address], Progress Notes * MACI RAMOS PDOB:1949 (74 yo M)Acc No.[id number]:09/19/2024 Patient:?MACI RAMOS :1950???Age:74 Y???Sex:Male Address:[address] [place], [address] * true * Date:? Generated for Printi ng/Favarinderg/eTransmitting on:?09/29/2024 08:20 AM EDT
--- NOTE | 2024-09-29 08:27 | A.OFFVIS_ITS ---
Intake Visit Reasons: metastatic prostate cancer/labs(labs?) Intake Note: Patient is present for metastatic prostate cancer/labs Urology Medication:none Antibiotic Allergy:none Blood Thinner:none Pipeline Systems Operator Required: No Allergies No Known Allergies [No Known Allergies*] Allergy (Verified 09/29/24 08:28) HPI Comments Details: Keshav is a pleasant male. He is a patient of Dr. Dickerson. He is seen for the following urologic condition - prostate cancer - urinary frequency and urgency 09/25 0.23 2 Urinary tract infection on evaluation today Levaquin prescribed Upcoming assessment for spine surgery G[facility] to be administered in November 01 PSA 0.14 - [facility] administration 02/24 Bone Scan - Interval development of linear increased asymmetric tracer activity is present projecting in the region of the right-sided ramus of the mandible, highly suspicious for interval disease progression in this patient with metastatic bone disease from prostate cancer - but PSMA clear in 10/25 10/25 PSMA appears to show partial resolution of T12 lesion following external beam radiation. Had not been on GnRH since PSA stays low. Has been on Xtandi. 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 Seen by Dr Dickerson radiation oncology. He has continued to have good biochemical response from GnRH. PSA remains low, testosterone remains blocks. 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 Would recommend anti androgen. Spot radiation. Assessment with oncology for chemotherapy. Intermittent Hormone therapy - Last GnRH 01/23 Initial therapy external beam radiotherapy 2004. Rising PSA - salvage cryotherapy 2009 2022 T12 lesion with external beam radiation and hormone therapy Denosumab through oncology Subsequent intermittent hormone therapy PSA 01/21 <0.1, 04/22 <0.1, 10/22 PSA < 0.1, T 2, 01/22 PSA <0.1, T 1, 04/23 PSA <0.1 T12, 10/23 2.8 212, 01/23 10.2 288, 04/24 P 1.8 T 3, 07/24 1.3 T 3, 11/23 0.8 T 2 Urinary urgency and frequency Secondary to prostate cancer therapy Radiation cystitis Trial of Toviaz with terazosin Failed tibial stimulation Failed oxybutynin, vesicare, toviaz [facility] Medical History CHF (congestive heart failure) Overweight Renal cyst Tobacco dependence Urinary incontinence Iron deficiency anemia Hx of radiation therapy Stenosis of lumbosacral spine Falls Hypertension Hypercholesteremia Kidney disease Macular degeneration Hematuria Urgency incontinence Prostate cancer Surgical History History of incision and drainage Spinal surgery in prior 3 months History of prostate surgery History of back surgery Family History Other No family history of coronary artery disease Social History Household Members: Spouse Housing: House Are you a primary youth care specialist to a significant other at home: No Do you presently have visiting nurse or other home services: No Alcohol intake: former Patient Tobacco Use Status: Current everyday Tobacco user Smoking Start Date: 06/18/61 Tobacco use type: Cigarette Cigarette Packs Per Day: 0.5 Years Smoked: 60 e-Cigarette/Vaping Use: Never Used Second Hand Smoke Exposure: No Advance Directives Date on File: 02/19/21 service: Yes Current occupational status: retired Review of Systems Const Denies chills and Denies fever(s) Card Reports no additional complaints and Denies syncope Resp Denies cough GI Denies abdominal pain and Denies heartburn Reports as per HPI and Denies change in libido Neuro Denies syncope Psych Denies change in libido Endo Denies change in libido Physical Exam Const General: cooperative, healthy appearing, comfortable and no acute distress Orientation/consciousness: patient oriented x3 HEENT Face and sinus: Yes normal facial exam Mouth: moist mucous membranes Neck Neck: Yes normal visual inspection, Yes full ROM and Yes trachea midline Chest Chest palpation & inspection: normal inspection of the chest Resp Effort & Inspection: normal respiratory effort, able to speak in complete sentences and no respiratory distress GI Inspection: Yes normal to inspection Back/Spine/Pelvis Cervical Spine: normal cervical lordosis Thoracic/Lumbar Spine: thoracic and lumbar spine normal to inspection Skin General skin exam: no rashes or lesions noted Neuro General: patient oriented x3, gait normal, tone normal and moves all extremities Extrem General: Yes normal to inspection and Yes capillary refill normal Assessment & Plan Assessment & Plan (1) Prostate cancer: Comment: Prior salvage radiation with intermittent hormone therapy Code(s): C61 - Malignant neoplasm of prostate Category: Medical (2) Complicated urinary tract infection: Code(s): N39.0 - Urinary tract infection, site not specified Category: Medical Plan [facility] next month 4 month follow-up lab work Orders: Orders Testosterone, Total 4 Months C61 - Malignant neoplasm of prostate, C79.51 - Secondary malignant neoplasm of bone Urine Culture Today N39.0 - Urinary tract infection, site not specified Prostate Specific Antigen 4 Months C61 - Malignant neoplasm of prostate, C79.51 - Secondary malignant neoplasm of bone Medications: New levofloxacin 500 mg PO DAILY 5 tabs 0RF 5 days C61 - Malignant neoplasm of prostate, C79.51 - Secondary malignant neoplasm of bone Patient Instructions: This note is constructed using voice recognition software. While every effort has been made to ensure accuracy sewing machine assembler errors may have been included. Imaging studies, laboratory and physical exam results were discussed and reviewed in detail. No major barriers to patient understanding were identified. An opportunity to ask questions regarding the treatment plan was provided. All questions were answered. The patient expressed understanding and agreement with the above treatment plan. The patient is aware they should contact our office by phone for worsening of their current condition or the appearance of new urologic symptoms. Compliance is encouraged with any medications and followup testing that is ordered. It is a privilege to participate in the urologic care of your patient. If you have any questions or concerns regarding treatment for the above conditions, or other urologic issues, please do not hesitate to contact me. The office telephone contact is [phone]. Sincerely, Dr Ruddy Mace MD, [facility] - Urology Compassionate Specialist Care for the Genitourinary System Coding Level of Care Code Est Pt Level 3 (54782) Complex EM visit Add On G2211 Diagnoses Prostate cancer C61 Complicated urinary tract infection N39.0
== END 2024-09-29 09:19 | disposition home or self-care (01) ==
LOC: HO.HUSH 08:16
PROVIDERS: PCP Internal Medicine Medical Oncology; Visit Provider Urology
DX: C61 Malignant neoplasm of prostate (principal); N39.0 Urinary tract infection, site not specified
CPT/HCPCS: 99213; G2211

== ENCOUNTER 2024-09-29 09:16 | Outpatient (REF) | payer MEDICARE, SELFPAY | END 2024-09-29 09:17 | disposition home or self-care (01) | LOC: HO.LAB 09:16 | PROVIDERS: Visit Provider Urology | DX: Z13.89 Encounter for screening for other disorder (principal) | CPT/HCPCS: 87086 ==

== ENCOUNTER → 2024-09-29 09:42 | Outpatient (REF) | payer MEDICARE, SELFPAY ==
--- NOTE | 2024-09-29 09:53 | CA_ITS ---
Acquisition Time: 2024-09-29 10:04:42 Total Exercise Time: 00:02:00 Test Indications: Screening for CAD,Pre-Op Evaluation Medications: TAMSULOSIN DOXYCYCLINE OXYCODONE Protocol: LEXISCAN Max HR: 131 BPM 90% of Pred: 144 BPM Max BP: 110/60 mmHG Max Work Load: 1.0 METS Pharmacological stress test with Lexiscan while pt laid in recliner, with reports of SOB and dizziness, without any arrythmias, with normotensive response to injection. Nondiagnostic EKG for ischemia. In recovery, pt treated with IVP Aminophylline 75 mg to reverse Lexiscan after which pt feeling back to baseline. Heart rate improved to baseline. Nuclear images pending. Test reviewed with Dr. Garcia. PD- baseline HR in the 120s, hydrated and laid supine, started with HR in the 110s. Diagnosed today with UTI per pt. Advised adequate hydration and taking his antibiotics. Referred By: Jose G Dickerson Electronically Signed By: Kush Castañeda
== END ==
LOC: HO.CARD 09:42
PROVIDERS: PCP Internal Medicine Medical Oncology; Visit Provider Internal Medicine Medical Oncology
DX: Z01.818 Encounter for other preprocedural examination (principal); I77.9 Disorder of arteries and arterioles, unspecified; C61 Malignant neoplasm of prostate; N39.0 Urinary tract infection, site not specified
CPT/HCPCS: 78452; 87086; 93017; 99212; A9500; J0280; J2785

== ENCOUNTER → 2024-09-29 09:53 | Outpatient (BNV) | payer MEDICARE, SELFPAY | PROVIDERS: PCP Internal Medicine Medical Oncology | DX: R06.02 Shortness of breath (principal); R42 Dizziness and giddiness | CPT/HCPCS: 78452; 93016; 93018 ==

== ENCOUNTER 2024-10-12 15:01 | Outpatient (AMB) | payer MEDICARE, SELFPAY ==
--- NOTE | 2024-10-12 15:49 | A.SPINEOV_ITS ---
Intake Visit Reasons: Discuss Surgery Intake Note: Mr. Ramos is here today to Discuss surgery. Tour Conductor Required: No Allergies No Known Allergies [No Known Allergies*] Allergy (Verified 09/29/24 08:28) Assessment & Plan Assessment & Plan (1) Lumbar spinal stenosis: Code(s): M48.061 - Spinal stenosis, lumbar region without neurogenic claudication Category: Medical Qualifiers: Neurogenic claudication status: with neurogenic claudication Qualified Code(s): M48.062 - Spinal stenosis, lumbar region with neurogenic claudication Plan: Dear colleague, On 10/12/2024, I saw for follow-up Keshav Ramos to discuss possible surgery. This 74-year-old male with metastatic prostate carcinoma presented to me with severe right-sided unilateral neurogenic claudication due to severe L3-4 spinal stenosis due to the combination of an extruded disc herniation and arthritis. I offered him a lumbar decompression with removal of the disc herniation after preoperative clearance. He underwent a cardiac stress test we came back normal. His lab values are reasonable. His coagulation numbers are normal as well as his platelet count. His main concern was spreading of the cancer or having to replace the spinal fluid of a incidental durotomy occurs. I told him that is spreading of the cancer should not be an issue and that your body makes 1 L of spinal fluid a day, so a incidental durotomy will not deplete the spinal fluid. The symptoms continue to bother him and therefore he wants to proceed. He is tentatively scheduled for November 17 for a right L3-4 decompression. I spent 30 minutes in his consult to review imaging and discussing plan of care. Do not hesitate to call me with any questions or concerns. Blair Cuellar MD, PhD Spine Fellowship Trained Neurosurgeon Director, [facility] Coding Level of Care Code Est Pt Level 4 (78182) Diagnoses Spinal stenosis of lumbar region with neurogenic claudication M48.062 Neurogenic claudication status: with neurogenic claudication
--- OUTSIDE RECORDS SUMMARY | 2024-10-12 17:18 | XMS_ITS | Patient Health Record ---
Author Organization Jose G Dickerson III, MD Address [address] [address] Care Team Providers Care Knot Bumper Name Role Phone Jose G Dickerson Primary [...] Electrolytes Reviewed date:11/11/2023 11:17:03 AM Interpretation: Performing Lab:[facility], [address] [place] [phone] Notes/Report: Sodium 144 135-145 mmol/L Potassium 5.7 3.3-5.1 mmol/L Slight Hemoly sis Chloride 111 96-108 mmol/L Carbon Dioxide 26 22-29 mmol/L Anion Gap 13 12-20 Potassium Reviewed date:11/11/2023 11:17:03 AM Interpretation: Performing Lab:[facility], [address] [place] [phone] Notes/Report: Potassium 5.3 3.3-5.1 mmol/L Complete Blood Count Auto Di ff Reviewed date:12/07/2023 02:14:46 PM Interpretation: Performing Lab:[facility], [address] [place] [phone] Notes/Report: White Blood Count 7.0 4.8-10.8 X10*3/uL [...] Panel Reviewed date:12/07/2023 02:14:46 PM Interpretation: Performing Lab:[facility], [address] [place] [phone] Notes/Report: Sodium 141 135-145 mmol/L Potassium 5.1 3.3-5.1 mmol/L Chloride 111 96-108 mmol/L Carbon Dioxide 24 22-29 mmol/L Anion Gap 11 12-20 Blood Urea Nitrogen 29 9-16 mg/dL Creatinine 1.82 0.5-1.4 mg/dL Estimated Glomerular Filt Rate 36 NOTE: For -[place] individuals, multiply the result by 1.210. Chronic [...] Ferritin Reviewed date:12/07/2023 02:14:46 PM Interpretation: Performing Lab:[address] [address] Notes/Report: Ferritin 110 20-250 ng/mL Prostate Specific Antigen Reviewed date:12/07/2023 02:14:46 PM Interpretation: Performing Lab:[address] [address] Notes/Report: Prostate Specific Antigen 0.25 <0.05-4.0 ng/mL PSA methodology: Dominguez Alinity i Chemiluminescent Microparticle Immunoassay (CMIA) NM bone scan whole body Reviewed date:03/23/2024 09:17:18 AM Interpretation: Performing Lab: Notes/Report: [address] [address] Nuclear Medicine Report Signed Patient: Maci Conley MR#: [id number] : 1950 Acct:[id number] Age/Sex: 73 / M ADM Date: 02/24/24 Loc: RACHID Attending Dr: David Montana MD Ordering Physician: David Montana MD Date of Service: 02/24/24 Procedure(s): NM bone scan whole body Accession Number(s): [id number] cc: Jose G Dickerson MD; David Montana [...] by: Dusty Thompson MD 03/16/2024 12:32 PM [facility] Dictated By: Dusty Thompson MD Signed By: <Electronically signed by Dusty Thompson MD in OV> 03/16/24 1232 DD/ 1042 TD/TT: 02/24/24 1525 As[employer]er [employer] Mesh Gate: SANJAY [place] [address] Nuclear Medicine Report Signed Patient: Jose D Conley MR#: [id number] : 1950 Acct:[id number] Age/Sex: 73 / M ADM Date: 02/24/24 Loc: RACHID Attending Dr: Laura Montana MD Ordering Physician: David Montana MD Date of Service: 02/24/24 Procedure(s): NM bon e scan whole body Accession Number(s): [id number] cc: Jose G Dickerson MD; David Montana [...] 03/16/24 1232 DD/ 1042 TD/TT: 02/24/24 1525 Assembler Wire Mesh Gate: SANJAY Complete Blood Count Auto Di ff Reviewed date:03/23/2024 09:17:17 AM Interpretation: Performing Lab:[facility], [address] [place] [phone] Notes/Report: White Blood Count 6.8 4.8-10.8 X10*3/uL [...] Panel Reviewed date:03/23/2024 09:17:18 AM Interpretation: Performing Lab:[facility], [address] [place] [phone] Notes/Report: Sodium 143 135-145 mmol/L Potassium 5.2 [...] Ferritin Reviewed date:03/23/2024 09:17:18 AM Interpretation: Performing Lab:[facility], [address] [place] [phone] Notes/Report: Ferritin 15 20-250 ng/mL Prostate Specific Antigen Reviewed date:03/23/2024 09:17:18 AM Interpretation: Performing Lab:[facility], [address] [place] [phone] Notes/Report: Prostate Specific Antigen 0.13 <0.05-4.0 ng/mL PSA methodology: Dominguez Alinity i Chemiluminescent Microparticle Immunoassay (CMIA) Vitamin B12 Reviewed date:03/23/2024 09:17:18 AM Interpretation: Performing Lab:[facility], [address] [place] [phone] Notes/Report: Vitamin B12 665 200-900 pg/mL NORMAL 200-900 PG/ML INDETERMINATE 160-199 PG/ML DEFICIENT < 160 PG/ML XR mandible min 4V Reviewed date:04/24/2024 08:39:55 PM Interpretation: Performing Lab: Notes/Report: [address] [place] [address] XRay Report Signed Patient: Maci Conley MR#: [id number] : 1950 Acct:[id number] Age/Sex: 74 / M ADM Date: 04/16/24 Loc: HO.JAIROAY Attending Dr: Jose G Dickerson MD Ordering Physician: Jose G Dickerson MD Date of Service: 04/16/24 Procedure(s): XR mandible min 4V Accession Number(s): [id number] cc: Jose G Dickerson MD EXAMINATION: XR [...] by: Davion Upton MD 04/18/2024 11:29 AM [facility] Dictated By: Davion Upton MD Signed By: <Electronically signed by Davion Upton MD in OV> 04/18/24 1129 DD/ TD/TT: 04/16/2455 As[employer]er [employer] Mesh Gate: CATHY [address] [address] XRay Report Signed Patient: Jose D Conley MR#: [id number] : 1950 Acct:[id number] Age/Sex: 74 / M ADM Date: 04/16/24 Loc: HO.XRAY Attending Dr: Jose G Dickerson MD Ordering Physician: Jose G Dickerson MD Date of Service: 04/16/24 Procedure(s): XR man dible min 4V Accession Number(s): [id number] cc: Jose G Dickerson MD EXAMINATION: XR [...] by: Davion Upton MD 04/18/2024 11:29 AM [facility] Dictated By: Davion Upton MD Signed By: <Electronically signed by Davion Upton MD in OV> 04/18/24 1129 DD/ TD/TT: 04/16/24 0955 As[employer]er Wire Mesh Gate: CATHY Complete Blood Count Auto Di ff Reviewed date:07/01/2024 06:26:39 AM Interpretation: Performing Lab:[facility], [address] [place] [phone] Notes/Report: White Blood Count 7.1 4.8-10.8 X10*3/uL [...] Panel Reviewed date:07/01/2024 06:26:39 AM Interpretation: Performing Lab:[facility], [address] [place] [phone] Notes/Report: Sodium 142 135-145 mmol/L Potassium 5.1 [...] Ferritin Reviewed date:07/01/2024 06:26:39 AM Interpretation: Performing Lab:[facility], [address] [place] [phone] Notes/Report: Ferritin 32 20-250 ng/mL Prostate Specific Antigen Reviewed date:07/01/2024 06:26:39 AM Interpretation: Performing Lab:[facility], [address] [place] [phone] Notes/Report: Prostate Specific Antigen 0.12 <0.05-4.0 ng/mL PSA methodology: Dominguez Alinity i Chemiluminescent Microparticle Immunoassay (CMIA) Vitamin B12 Reviewed date:07/01/2024 06:26:39 AM Interpretation: Performing Lab:[facility], [address] [place] [phone] Notes/Report: Vitamin B12 797 200-900 pg/mL NORMAL 200-900 PG/ML INDETERMINATE 160-199 PG/ML DEFICIENT < 160 PG/ML Gram stain Reviewed date:07/11/2024 06:13:00 AM Interpretation: Performing Lab:[facility], [address] [place] [phone] Notes/Report: Gram stain Gram stain results: Gram stain 2+ polys Gram stain 1+ Gram-positive cocci Routine Culture Reviewed date:07/11/2024 06:13:00 AM Interpretation: Performing Lab:[facility], [address] [place] [phone] Notes/Report: Routine Culture Report - external Routine Culture 1+ Mixed skin zander US abdominal aortic aneurysm Reviewed date:08/05/2024 03:27:00 PM Interpretation: Performing Lab: Notes/Report: [address] [address] Ultrasound Report Signed Patient: Maci Conley MR#: [id number] : 1950 Acct:[id number] Age/Sex: 74 / M ADM Date: 07/19/24 Loc: .US Attending Dr: Ricky Rendon MD Ordering Physician: Ricky Rendon MD Date of Service: 07/19/24 Procedure(s): US abdominal aortic aneurysm Accession Number(s): [id number] cc: Jose G Dickerson MD; Ricky Rendon [...] 07/21/24 1217 DD/ 1303 TD/TT: 07/19/24 1406 As[employer] Mesh Gate: [place] [address] Ultrasound Report Signed Patient: Jose D Conley MR#: [id number] : 1950 Acct:[id number] Age/Sex: 74 / M ADM Date: 07/19/24 Loc: HO.US Attending Dr: Ricky Rendon MD Ordering Physician: Ricky Rendon MD Date of Service: 07/19/24 Procedure(s): US abdominal aortic aneurysm Accession Number(s): [id number] cc: Jose G Dickerson MD; Ricky Rendon [...] 07/21/24 1217 DD/ 1303 TD/TT: 07/19/24 1406 Assembler Wire Mesh Gate: US arterial duplex BI w/ RAUL Reviewed date:08/05/2024 03:27:00 PM Interpretation: Performing Lab: Notes/Report: [address] [address] Ultrasound Report Signed Patient: Maci Conley MR#: [id number] : 1950 Acct:[id number] Age/Sex: 74 / M ADM Date: 07/19/24 Loc: HO.US Attending Dr: Ricky Rendon MD Ordering Physician: Ricky Rendon MD Date of Service: 07/19/24 Procedure(s): US arterial duplex BI w/ RAUL Accession Number(s): [id number] cc: Jose G Dickerson MD; Ricky Rnedon MD EXAMINATION: Noninvasive assessment of the bilateral [...] 07/21/24 1217 DD/ 1303 TD/TT: 07/19/24 1406 [employer] M[employer] Gate: [place] [address] Ultrasound Report Signed Patient: Jose D Conley MR#: [id number] : 1950 Acct:[id number] Age/Sex: 74 / M ADM Date: 07/19/24 Loc: HO.US Attending Dr: Ricky Rendon MD Ordering Physician: Ricky Rendon MD Date of Service: 07/19/24 Procedure(s): US art erial duplex BI w/ RAUL Accession Number(s): [id number] cc: Jose G Dickerson MD; Ricky Rendon [...] 07/21/24 1217 DD/ 1303 TD/TT: 07/19/24 1406 As[employer]er Wire Mesh Gate: Urine Culture Reviewed date:08/11/2024 08:13:59 PM Interpretation: Performing Lab:[facility], [address] [place] [phone] Notes/Report: O:ESCCOL Escherichia coli Urine Culture ESBL [...] date:08/05/2024 03:27:00 PM Interpretation: Performing Lab: Notes/Report: [address] [address] [address] Scan Report Signed Patient: Maci Conley MR#: [id number] : 1950 Acct:[id number] Age/Sex: 74 / M ADM Date: 08/04/24 Loc: HO.ED Attending Dr: Ordering Physician: Bettie Suarez DO Date of Service: 08/04/24 Procedure(s): CT abdomen pelvis wo IV con Accession Number(s): [id number] cc: Jose G Dickerson MD; Bettie Suarez DO Report Number: [id number]: Total DLP = 411.00 mGy-cm EXAMINATION: CT [...] 08/04/24 1315 DD/ 1242 TD/TT: 08/04/24 1242 As[employer]er Wire Mesh Gate: [address] [address] [address] Scan Report Signed Patient: Jose D Conley MR#: [id number] : 1950 Acct:[id number] Age/Sex: 74 / M ADM Date: 08/04/24 Loc: HO.ED Attending Dr: Ordering Physician: Bettie Suarez DO Date of Service: 08/04/24 Procedure(s): CT abd omen pelvis wo IV con Accession Number(s): [id number] cc: Jose G Dickerson MD; Bettie Suarez [...] 08/04/24 1315 DD/ 1242 TD/TT: 08/04/24 1242 As[employer]er [employer] M[employer] Gate: thoracic spine xiomy/dileep zaldivar Reviewed date:08/05/2024 03:27:00 PM Interpretation: Performing Lab: Notes/Report: [address] [address] Magnetic Resonance Report Signed Patient: Maci Conley MR#: [id number] : 1950 Acct:[id number] Age/Sex: 74 / M ADM Date: 08/04/24 Loc: [facility]: Violetta Tinsley MD Ordering Physician: Nathan Gastelum Date of Service: 08/04/24 Procedure(s): MR thoracic spine wo/w con Accession Number(s): [id number] cc: Nathan Gastelum; Jose G Dickerson MD [...] in OV> 08/04/24 1819 DD/ TD/TT: 08/04/241817 As[employer] Mesh Gate: [address] [address] Magnetic Resonance Report Signed Patient: Jose D Conley MR#: [id number] : 1950 Acct:[id number] Age/Sex: 74 / M ADM Date: 08/04/24 Loc: [facility]- Attending Dr: Violetta Tinsley MD Ordering Physician: Nathan Gastelum Date of Service: 08/04/24 Procedure(s): MR shaver spine wo/w con Accession Number(s): [id number] cc: Nathan Gastelum; Jose G Dickerson MD [...] in OV> 08/04/241818 DD/ 17 TD/TT: 08/04/241817 [employer] M[employer] Gate: JAIRO chest 1V Reviewed date:08/05/2024 03:27:00 PM Interpretation: Performing Lab: Notes/Report: [address] [address] XRay Report Signed Patient: Maci Conley MR#: [id number] : 1950 Acct:[id number] Age/Sex: 74 / M ADM Date: 08/04/24 Loc: .ED Attending Dr: Ordering Physician: Bettie Suarez DO Date of Service: 08/04/24 Procedure(s): XR chest 1V Accession Number(s): [id number] cc: Jose G Dickerson MD; Bettie Suarez [...] 08/04/24 1212 DD/ 1153 TD/TT: 08/04/24 1159 [employer] M[employer] Gate: [place] [address] XRay Report Signed Patient: Jose D Conley MR#: [id number] : 1950 Acct:[id number] Age/Sex: 74 / M ADM Date: 08/04/24 Loc: .ED Attending Dr: Ordering Physician: Bettie Suarez DO Date of Service: 08/04/24 Procedure(s): XR chest 1V Accession Number(s): [id number] cc: Jose G Dickerson MD; Bettie Suarez [...] 08/04/24 1212 DD/ 1153 TD/TT: 08/04/24 1159 As[employer] Mesh Gate: Complete Blood Count no Diff Reviewed date:08/05/2024 03:27:00 PM Interpretation: Performing Lab:[facility], [address] [place] [phone] Notes/Report: White Blood Count 9.6 4.8-10.8 X10*3/uL [...] Panel Reviewed date:08/05/2024 03:27:00 PM Interpretation: Performing Lab:[facility], [address] [place] [phone] Notes/Report: Sodium 140 135-145 mmol/L Potassium 4.3 [...] Antigen Reviewed date:08/05/2024 03:27:00 PM Interpretation: Performing Lab:[facility], [address] [place] [phone] Notes/Report: Prostate Specific Antigen 0.30 <0.05-4.0 ng/mL PSA methodology: Dominguez Alinity i Chemiluminescent Microparticle Immunoassay (CMIA) SARS-CoV2/FLU/RSV Reviewed date:08/05/2024 03:27:00 PM Interpretation: Performing Lab:[address] [address] Notes/Report: Influenza A PCR NEGATIVE Negative Influenza [...] by authorized laboratories. Testing performed on the [employer] GeneXpert utilizing real-time RT-PCR. All SARS CoV2 and positive influenza A/B results are reported to [facility]. CT head/brain wo con Reviewed date:08/07/2024 07:20:28 AM Interpretation: Performing Lab: Notes/Report: [address] [address] [address] Scan Report Signed Patient: Maci Conley MR#: [id number] : 1950 Acct:[id number] Age/Sex: 74 / M ADM Date: 08/04/24 Loc: .S3 357-[address]: Bassem Mehta MD Ordering Physician: Bassem Mehta MD Date of Service: 08/05/24 Procedure(s): CT head/brain wo IV con Accession Number(s): [id number] cc: Jose G Dickerson MD; Bassem Mehta MD Report Number: [id number]: Total DLP = 718.00 mGy-cm CLINICAL HISTORY: [...] in OV> 08/05/242055 DD/ 55 TD/TT: 08/05/242055 As[employer] Mesh Gate: [place] [address] [address] Scan Report Signed Patient: Jose D Conley MR#: [id number] : 1950 Acct:[id number] Age/Sex: 74 / M ADM Date: 08/04/24 Loc: HO.S3 357-[address]: Joel Mehta MD Ordering Physician: Bassem Mehta MD Date of Service: 08/05/24 Procedure(s): CT head/brain wo IV con Accession Number(s): [id number] cc: Jose G Dickerson MD; Bassem Mehta [...] in OV> 08/05/242055 DD/ 55 TD/TT: 08/05/242055 [employer] M[employer] Gate: XR chest 2V Reviewed date:08/05/2024 03:27:00 PM Interpretation: Performing Lab: Notes/Report: [address] [address] XRay Report Signed Patient: Maci Conley MR#: [id number] : 1950 Acct:[id number] Age/Sex: 74 / M ADM Date: 08/04/24 Loc: .S3 357-[address]: Bassem Mehta MD Ordering Physician: Bassem Mehta MD Date of Service: 08/05/24 Procedure(s): XR chest 2V Accession Number(s): [id number] cc: Jose G Dickerson MD; Bassem Mehta [...] 08/05/24 1436 DD/ 135 TD/TT: 08/05/24 135 [employer] Mesh Gate: [address] [address] XRay Report Signed Patient: Jose D Conley MR#: [id number] : 1950 Acct:[id number] Age/Sex: 74 / M ADM Date: 08/04/24 Loc: .S3 357-[address]: Joel Mehta MD Ordering Physician: Bassem Mehta MD Date of Service: 08/05/24 Procedure(s): XR chest 2V Accession Number(s): [id number] cc: Jose G Dickerson MD; Bassem Mehta [...] 08/05/24 1436 DD/ 1350 TD/TT: 08/05/24 135 As[employer]er Wire Mesh Gate: Eddie Sahu - Possible Hematolo gy Reviewed date:08/07/2024 07:20:28 AM Interpretation: Performing Lab:[facility], [address] [place] [phone] Notes/Report: Hold Lav - Possible Hematology SEE NOTE Specimen will be held untested for 8 hours. Call Hematology if testing is desired. Basic Metabolic Panel Reviewed date:08/07/2024 07:20:28 AM Interpretation: Performing Lab:[facility], [address] [place] [phone] Notes/Report: Sodium 140 135-145 mmol/L Potassium 4.0 [...] Procalcitonin Reviewed date:08/07/2024 07:20:28 AM Interpretation: Performing Lab:[facility], [address] [place] [phone] Notes/Report: Procalcitonin 14.76 Procalcitonin (PCT) Reference Range: [...] results from different laboratories and methodologies. References: [place] [employer]/Society of Critical Care [...] summary for [facility] PCT SHARON. http://www.accessdat a.fda.fov/cdrh_docs/ reviews/U486911.pdf. Published May 2004. Accessed October 2016. Creatinine Urine Reviewed date:08/07/2024 07:20:28 AM Interpretation: Performing Lab:[facility], [address] [place] [phone] Notes/Report: Creatinine Urine 77.77 Sodium Urine Random Reviewed date:08/07/2024 07:20:28 AM Interpretation: Performing Lab:[facility], [address] [place] [phone] Notes/Report: Sodium Urine Random 56.0 Legionella Ag Urine Reviewed date:08/11/2024 08:13:59 PM Interpretation: Performing Lab:[address] [address] Notes/Report: Legionella Ag Urine Not Detected Not [...] or serogroups. THIS TEST WAS PERFORMED AT: [employer]/[address] [address] KAROL ARNDT MD,PHD MRSA Nasal Screen Reviewed date:08/07/2024 07:20:28 AM Interpretation: Performing Lab:[facility], [address] [place] [phone] Notes/Report: MRSA Nasal PCR NEGATIVE Negative SA Nasal PCR NEGATIVE Negative MRSA Interpretation SEE NOTE MRSA target DNA not detected; SA target DNA not detected. A MRSA NEGATIVE, SA NEGATIVE test result does not preclude MRSA or SA nasal colonization. Strep Pneumo Ag urine Reviewed date:08/11/2024 08:13:59 PM Interpretation: Performing Lab:[facility], [address] [place] [phone] Notes/Report: Strep Pneumo Ag urine Not Detected Not Detected THIS TEST WAS PERFORMED AT: [employer] [address] [address] KAROL ARNDT MD,PHD US renal BI Reviewed date:08/07/2024 07:20:28 AM Interpretation: Performing Lab: Notes/Report: [address] [address] Ultrasound Report Signed Patient: Maci Conley MR#: [id number] : 1950 Acct:[id number] Age/Sex: 74 / M ADM Date: 08/04/24 Loc: .S3 357-[address]: Bassem Mehta MD Ordering Physician: Bassem Mehta MD Date of Service: 08/06/24 Procedure(s): US renal BI Accession Number(s): [id number] cc: Jose G Dickerson MD; Bassem Mehta [...] in OV> 08/06/241228 DD/ 27 TD/TT: 08/06/241227 As[employer]er [employer] Mesh Gate: [address] [address] Ultrasound Report Signed Patient: Jose D Conley MR#: [id number] : 1950 Acct:[id number] Age/Sex: 74 / M ADM Date: 08/04/24 Loc: [facility] 357-[address]: Joel Mehta MD Ordering Physician: Bassem Mehta MD Date of Service: 08/06/24 Procedure(s): US renal BI Accession Number(s): [id number] cc: Jose G Dickerson MD; Bassem Mehta [...] in OV> 08/06/24 122 DD/ TD/TT: 08/06/241227 [employer]er [employer] Mesh Gate: Basic Metabolic Panel Reviewed date:08/11/2024 08:13:59 PM Interpretation: Performing Lab:[facility], [address] [place] [phone] Notes/Report: Sodium 142 135-145 mmol/L Potassium 3.8 [...] Peptide Reviewed date:08/07/2024 07:20:28 AM Interpretation: Performing Lab:[facility], [address] [place] [phone] Notes/Report: B Type Natriuretic Peptide 191 <100 pg/mL Albumin Level Reviewed date:08/11/2024 08:13:59 PM Interpretation: Performing Lab:[facility], [address] [place] [phone] Notes/Report: Albumin Level 2.6 3.5-5.0 g/dL Hold Lav - Possible Hematolo gy Reviewed date:08/11/2024 08:13:59 PM Interpretation: Performing Lab:[facility], [address] [place] [phone] Notes/Report: Hold Lav - Possible Hematology SEE NOTE Specimen will be held untested for 8 hours. Call Hematology if testing is desired. Basic Metabolic Panel Reviewed date:08/11/2024 08:13:59 PM Interpretation: Performing Lab:[facility], [address] [place] [phone] Notes/Report: Sodium 142 135-145 mmol/L Potassium 3.9 [...] Procalcitonin Reviewed date:08/11/2024 08:13:59 PM Interpretation: Performing Lab:[facility], [address] [place] [phone] Notes/Report: Procalcitonin 3.54 Procalcitonin (PCT) Reference Range: [...] results from different laboratories and methodologies. References: [place] [employer]/Society of Critical Care [...] 510(k) substantial equivalence determination decision summary for [facility] PCT SHARON. http://www.accessdat a.fda.fov/cdr_docs/ reviews/C247397.pdf. Published May 2004. Accessed October 2016. MR lumbar spine wo/w con Reviewed date:08/11/2024 08:13:59 PM Interpretation: Performing Lab: Notes/Report: [address] [address] Magnetic Resonance Report Signed Patient: Maci Conley MR#: [id number] : 1950 Acct:[id number] Age/Sex: 74 / M ADM Date: 08/04/24 Loc: HO.S3 357-[address]: Violetta Tinsley MD Ordering Physician: Bassem Mehta MD Date of Service: 08/08/24 Procedure(s): MR lumbar spine wo/w con Accession Number(s): [id number] cc: Jose G Dickerson MD; Bassem Mehta [...] 08/09/24 0821 DD/ 1440 TD/TT: 08/08/24 1520 As[employer] Wire Mesh Gate: [place] [address] Magnetic Resonance Report Signed Patient: Jose D Conley MR#: [id number] : 1950 Acct:[id number] Age/Sex: 74 / M ADM Date: 08/04/24 Loc: .S3 357-[address]: Violetta Tinsley MD Ordering Physician: Bassem Mehta MD Date of Service: 08/08/24 Procedure(s): MR lum bar spine wo/w con Accession Number(s): [id number] cc: Jose G Dickerson MD; Bassem Mehta [...] 08/09/24 0821 DD/ 1440 TD/TT: 08/08/24 1520 As[employer]er Wire Mesh Gate: Complete Blood Count Auto Di ff Reviewed date:09/27/2024 01:57:42 PM Interpretation: Performing Lab:[facility], [address] [place] [phone] Notes/Report: White Blood Count 9.7 4.8-10.8 X10*3/uL Red Blood Count 3.34 4.60-5.80 X10*6/uL Hemoglobin 9.5 14.0-18.0 g/dl Hematocrit 30.5 42.0-52.0 % Mean Corpuscular Volume 91.3 80.0-98.0 fL Mean Corpuscular Hemoglobin 28.4 27.0-33.0 pg Mean Corpuscular HGB Conc 31.1 31.0-36.0 g/dl Red Cell Distribution Width 14.8 11.0-16.0 % Platelet Count 294 160-400 X10*3/uL Mean Platelet Volume 9.2 9.4-12.4 fL Neutrophils Percent Auto 76.5 45-73 % Imm Gran Pct Auto 1.2 0.0-0.4 % Lymphocytes Percent Auto 9.2 20-40 % Monocytes Percent Auto 10.6 2-11 % Eosinophils Percent Auto 2.1 0-4 % Basophils Percent Auto 0.4 0-2 % NRBC Pct Auto 0.0 0.0-0.2 /100WBC Neutrophils Absolute Auto 7.5 2.0-8.3 x10*3/uL Imm Gran Abs Auto 0.12 0.00-0.03 X10*3/uL Lymphocytes Absolute Auto 0.9 1.2-4.9 X10*3/uL Monocytes Absolute Auto 1.0 0.1-1.2 X10*3/uL Eosinophils Absolute Auto 0.2 0.0-0.4 X10*3/uL Basophils Absolute Auto 0.0 0.0-0.2 X10*3/uL NRBC Abs Auto 0.000 0.0-0.012 X10*3/uL Comprehensive Met. Panel Reviewed date:09/27/2024 01:57:42 PM Interpretation: Performing Lab:[address] [address] Notes/Report: Sodium 141 135-145 mmol/L Potassium 5.3 3.3-5.1 mmol/L Chloride 109 96-108 mmol/L Carbon Dioxide 21 22-29 mmol/L Anion Gap 16 12-20 Blood Urea Nitrogen 53 9-16 mg/dL Creatinine 3.12 0.5-1.4 mg/dL Estimated Glomerular Filt Rate 20 Chronic Kidney Disease: Estimated GFR < 60 mL/min/1.73m2 Severe Kidney Disease: Estimated GFR < 15 mL/min/1.73m2 Glucose Random 111 60-115 mg/dL Calcium 9.1 8.4-10.2 mg/dL Bilirubin Total 0.2 0.0-1.0 mg/dL Aspartate Amino Transferase 14 5-37 U/L Alanine Aminotransferase 6 0-40 U/L Total Protein 7.6 6.5-8.0 g/dL Albumin Level 4.2 3.5-5.0 g/dL Alkaline Phosphatase 93 39-117 U/L Prostate Specific Antigen Reviewed date:09/27/2024 01:57:42 PM Interpretation: Performing Lab:[address] [id number] Notes/Report: Prostate Specific Antigen 0.23 <0.05-4.0 ng/mL PSA methodology: [employer] i Chemiluminescent Microparticle Immunoassay (CMIA) Testosterone, Total Reviewed date:09/27/2024 01:57:42 PM Interpretation: Performing Lab:[address] [id number] Notes/Report: Testosterone, Total 2 250-1100 ng/dL Men with clinically significant hypogonadal symptoms and testosterone values repeatedly in the range of the 200-300 ng/dL or less, may benefit from testosterone treatment after adequate risk and benefits counseling. For additional information, please refer to http://education.[employer]fa q/ TotalTestosteroneM [id number] (This link is being provided for informational/ educational purposes only.) This test was developed and its analytical performance characteristics have been determined by [facility] [place], [place]. It has not been cleared or approved by the U.S. Food and Drug Administration. This assay has been validated pursuant to the CLIA regulations and is used for clinical purposes. THIS TEST WAS PERFORMED AT: [employer] [id number] [place] [address] KAROL ARNDT MD,PHD NM lamar perf SPECT rest & str (Not yet reviewed by provider) Interpretation: Performing Lab: Notes/Report: [address] [address] Nuclear Medicine Report Signed Patient: Maci Conley MR#: [id number] : 1950 Acct:[id number] Age/Sex: 74 / M ADM Date: 09/29/24 Loc: [facility] Attending Dr: Jose G Dickerson MD Ordering Physician: Jose G Dickerson MD Date of Service: 09/29/24 Procedure(s): NM lamar perf SPECT rest str Accession Number(s): [id number] cc: Jose G Dickerson MD Lexiscan Myocardial perfusion study Indication: Preoperative cardiac evaluation Technique: The patient was brought in for a Lexiscan perfusion study on 09/29/2024 and was injected 0.4 mg of Lexiscan intravenously. Within a minute of this injection 25 mCi of sestamibi was given intravenously. Images were obtained using the SPECT gamma camera interlaced with the gating device. Images were obtained in supine position. Resting perfusion study was performed on 10/03/2024. Patient was administered 25 mCi of sestamibi intravenously at rest. Images were then obtained in supine position. Total DLP 110 mGy-cm. Images were processed with the software and compared side to side in short axis, horizontal long axis and vertical long axis views. Findings: Raw aquisition reviewed. Arms by the patient's side. The stress perfusion study showed no significant perfusion abnormality. Both uncorrected as well as CT attenuation corrected images were reviewed. The gated study with calculated LVEF of 42% but visually normal. LV cavity is normal in size. The gated study shows normal wall thickening and contraction of segments. Resting study shows no significant perfusion abnormality. Gating at rest reveals normal wall motion with ejection fraction at 70%. The findings are consistent with no clear reversible or fixed perfusion abnormality. NM/NM lamar perf SPECT rest str Impression: 1. Myocardial perfusion imaging study shows normal myocardial perfusion. 2. Gated LVEF is 70% during rest and visually normal during stress. Correlate with echocardiogram. 3. Transient ischemic dilatation not present. EKG component of the test reported separately. Electronically signed by: Marques Patel MD 10/04/2024 11:13 AM EDT Dictated By: Marques Patel MD Signed By: <Electronically signed by Marques Patel MD in OV> 10/04/24 1113 DD/ 1030 TD/TT: 10/03/24 1355 [employer]: [place] [address] Nuclear Medicine Report Signed Patient: Jose D Conley MR#: [id number] : 1950 Acct:[id number] Age/Sex: 74 / M ADM Date: 09/29/24 Loc: [facility] Attending Dr: Jose G Dickerson MD Ordering Physician: Jose G Dickerson MD Date of Service: 09/29/24 Procedure(s): NM lamar perf SPECT rest str Accession Number(s): [id number] cc: Jose G Dickerson MD Lexiscan Myocardial perfusion study Indication: Preoperative cardiac evaluation Technique: The patient was brou t in for a Lexiscan perfusion study on 09/29/2024 and was injected 0.4 mg of Lexiscan intravenously. Within a minute of this injection 25 mC i of sestamibi was given intravenously. Images were obtained using the [employer]INCU gamma camera interlaced with the gating device. Images were obtained in supine position. Resting perfusion st udy was performed on 10/03/2024. Patient was administered 25 mCi of sestamibi intravenously at rest. Images were then obtained in sup ine position. Total DLP 110 mGy-cm. Images were processe d with the software and compared side to side in short axis, horizont al long axis and vertical long axis views. Findings: Raw aquisition revie wed. Arms by the patient's side. The stress perfusion study showed no significant perfusion abnormality. Both uncorrected as well as CT attenuation corrected images were reviewed . The gated study with calculated LVEF of 42% but visually normal. LV cavity is normal in size. The gated study shows normal wall thickeni ng and contraction of segments. Resting study shows no significant perfusion abnormality. Gating at rest reveals normal wall motion with ejection fraction at 70%. The findings are consistent with no clear reversible or fixed perfusion abnormality. N M/NM lamar perf SPECT rest str Impression: 1. Myocardial perfus ion imaging study shows normal myocardial perfusion. 2. Gated LVEF is 70% during rest and visually normal during stress. Correlate with echocardiogram. 3. Transient ischemi c dilatation not present. EKG component of the test reported separately. Electronically kalyan d by: Marques Patel MD 10/04/2024 11:13 AM EDT RP Workstatio n: [id number] Dictated By: Marques Patel MD Signed By: <Electronically signed by Marques Patel MD in OV> 10/04/24 1113 DD/ 1030 TD/TT: 10/03/24 1355 [employer]: Reason For Referral Reason Evaluate and Treat Blood in Stool Diagnosis 1 Blood in stool (K92. 1) Referral Organization Jose G Dickerson III, MD Referring Provider First Name Jose G Referring Provider Last Name Jayla Referring Provider Speciality Internal M edicine Referred Organization [facility] nickie Referred Provider [facility], Gastroenterology Referred Address [address] [place] [address],[place], [place],[id number], Referred Provider Specialty Gastroentero mojgan General Notes DElviar 08/18/2024 04:05:39 PM > Referral was faxed. Referral Priority Routine Referral Appointment Date 12/07/2024 Reason Consult and Treat MRI done at [facility] [place] on 08/08/2024 Spinal Canal [...] MCG/ML 1 mL Injection 03/31/20 24 Active Immunizations Vaccine Route Administration Date Status [...] Problem Status W/U Status Risk Notes Problem 012113668 Overweight (E66.3) Active confirmed He has lost 5 pounds since his last visit and is no longer overweeight. His weight will be followed carefully. We discussed diet and nutrition today. Problem 079445315 Prostate cancer (C61) Active confirmed His PSA remains low and controlled. He is tolerating his androgen deprivation well. He is treated with Eligard. He was at one point taking Xtandi. He is currently asymptomatic and has gained weight.The spinal cord is intact without epidural invasion on recent MRIs of the thoracic and lumbar spine. 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 Current therapy with intermittent androgen deprivation therapy was continued. Problem 551057767 B12 deficiency (E53.8) Active confirmed He received a B 12 injection today without difficulty in the left arm. 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 I will continue. We will begin receiving denosumab. Problem 57634274 Essential hypertension (I10) Active confirmed His blood pressure is stable and no change in his regimen was needed today. Problem 61621370 Tobacco dependence (F17.200) Active confirmed I have discusse d with him all of the long-term consequences of smoking and he is well aware of them. I have offered to refer him to smoking cessation programs at the [facility] and he will consider this. Problem 33963991 Pernicious anemia (D51.0) Active confirmed He received 1 000 mcg of vitamin B12by intramuscular injection in the left armToday without difficulty. Problem 92801520 Iron deficiency anemia, unspecified iron deficiency anemia type (D50.9) Active confirmed His ferritin which was 15 is now 32. He will continue on the ferrous gluconate. His hematocrit has improved to 33%. Problem 979041243 Stage 3 chronic kidney disease (N18.3) Active confirmed His BUN has dropped from 36-30 and his GFR has improved to 35. His creatinine is improved from 2.12-1.87. Current therapy was continued.He was seen in the hospital recently by nephrology consultation. Follow-up visit with renal was made upon discharge. Problem 76064950 Age-related cataract of both eyes, unspecified age-related cataract type (H25.9) Active confirmed He is medically cleared for bilateral cataract extraction with a normal risk of a man his age. There is no contraindication to surgery. Problem 862067142 Macular degeneration of both eyes, unspecified type (H35.30) Active confirmed He will contin ue to receive his bevacizumab injections from his insurance examiner. Problem Peripheral arterial occlusive disease (198366357) Peripheral arterial occlusive disease (I77.9) Active confirmed There is bee n no change in his claudication or peripheral arterial disease. He is up-to-date with his visits to the vascular surgeon. No open areas on his lower extremities. Problem 55614186 Preoperative clearance (Z01.818) Active confirmed His risk of adverse consequences from surgery is higher than the average of a man his age who is healthy. However he is medically stable with no active cardiac disease. He is given medical clearance. The risks are fairly small and the benefit is great. An EKG chest x-ray and stress test and labs are pending at this time. 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 His BUN is lately. No change in his regimen as needed. Problem Chronic kidney disease stage 3A (disorder) (639522829) Chronic kidney disease, stage 3a (N18.31) Active confirmed Vital Signs Heart Rate 97 /min 10/12/2024 Temperature 97.0 degrees Fahrenheit 10/12/2024 Blood pressure diastolic 70 mm Hg 10/12/2024 Height 69 in 10/12/2024 Blood pressure systolic 107 mm Hg 10/12/2024 Weight 158 lbs 10/12/2024 BMI 23.33 kg/m2 10/12/2024 Encounters Encounter Location Date Provider Diagnosis Jose G Dickerson III, MD [address] [place] [address] [place] [address] 10/12/2024 Jose G Dickerson Prostate cancer C61 Jose G Dickerson III, MD [address] [place] [address] [place] [address] 10/14/2023 Jose G Dickerson Prostate cancer C61 ; [...] type H25.9 Jose G Dickerson III, MD [address] [place] [address] [place] [address] 11/11/2023 Jose G Dickerson Prostate cancer C61 ; Iron deficiency anemia, unspecified iron deficiency anemia type D50.9 ; Essential hypertension I10 ; Macular degeneration of both eyes, unspecified type H35.30 ; Stage 3 chronic kidney disease N18.3 ; 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, initial encounter S24.114A ; Tobacco dependence F17.200 and Pernicious anemia D51.0 Jose G Dickerson III, MD [address] [place] [address] [place] [address] 12/09/2023 Jose G Dickerson Prostate cancer C61 ; Essential hypertension I10 ; Stage 3 chronic kidney disease N18.3 ; Tobacco dependence F17.200 ; Peripheral arterial occlusive disease I77.9 ; 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, initial encounter S24.114A and Pernicious anemia D51.0 Jose G Dickerson III, MD [address] [place] [address] [place] [address] 01/06/2024 Jose G Dickerson Prostate cancer C61 ; [...] anemia D51.0 Jose G Dickerson III, MD [address] [place] [address] [place] [address] 02/03/2024 Jose G Dickerson Prostate cancer C61 ; Essential hypertension I10 ; Macular degeneration of both eyes, unspecified type H35.30 ; Stage 3 chronic kidney disease N18.3 ; Iron deficiency anemia, unspecified iron deficiency anemia type D50.9 ; 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, initial encounter S24.114A ; Pernicious anemia D51.0 and Tobacco dependence F17.200 Jose G Dickerson III, MD [address] [place] [address] [place] [address] 2024 Jose G Dickerson Essential hypertensi on I10 ; Prostate cancer C61 ; Iron deficiency anemia, unspecified iron deficiency anemia type D50.9 ; Vitamin B12 deficiency E53.8 ; Stage 3 chronic kidney disease N18.3 ; Tobacco dependence F17.200 ; Overweight E66.3 and Peripheral arterial occlusive disease I77.9 Jose G Dickerson III, MD [address] [place] [address] [place] [address] 03/30/2024 Jose G Dickerson Essential hypertensi on I10 ; Prostate cancer C61 ; Stage 3 chronic kidney disease N18.3 ; Tobacco dependence F17.200 ; Iron deficiency anemia, unspecified iron deficiency anemia type D50.9 ; Vitamin B12 deficiency E53.8 ; Macular degeneration of both eyes, unspecified type H35.30 and Peripheral arterial occlusive disease I77.9 Jose G Dickerson III, MD [address] [place] [address] [place] [address] 04/15/2024 Jose G Dickerson Essential hypertensi on [...] deficiency E53.8 Jose G Dickerson III, MD [address] [place] [address] [place] [address] 04/28/2024 Jose G Dickerson Essential hypertensi on I10 ; Prostate cancer C61 ; Stage 3 chronic kidney disease N18.3 ; Tobacco dependence F17.200 ; Iron deficiency anemia, unspecified iron deficiency anemia type D50.9 ; Peripheral arterial occlusive disease I77.9 ; Macular degeneration of both eyes, unspecified type H35.30 and Pernicious anemia D51.0 Jose G Dickerson III, MD [address] [place] [address] [place] [address] 06/08/2024 Jose G Dickerson Essential hypertensi on I10 ; Prostate cancer C61 ; Iron deficiency anemia, unspecified iron deficiency anemia type D50.9 ; Macular degeneration of both eyes, unspecified type H35.30 ; Stage 3 chronic kidney disease N18.3 ; Peripheral arterial occlusive disease I77.9 ; Tobacco dependence F17.200 ; Overweight E66.3 and Pernicious anemia D51.0 Jose G Dickerson III, MD [address] [place] [address] [place] [address] 07/07/2024 Jose G Dickerson Essential hypertensi on [...] anemia D51.0 Jose G Dickerson III, MD [address] [place] [address] [place] [address] 07/12/2024 Jose G Dickerson Essential hypertensi on [...] Furuncle L02.92 Jose G Dickerson III, MD [address] [place] [address] [place] [address] 08/26/2024 Jose G Dickerson Prostate cancer C61 ; Essential hypertension I10 ; Macular degeneration of both eyes, unspecified type H35.30 ; Stage 3 chronic kidney disease N18.3 ; Tobacco dependence F17.200 ; Peripheral arterial occlusive disease I77.9 ; 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, initial encounter S24.114A ; Pernicious anemia D51.0 and Overweight E66.3 Jose G Dickerson III, MD [address] [place] [address] [place] [address] 09/27/2024 Jose G Dickerson Prostate cancer C61 ; Preoperative clearance Z01.818 ; Essential hypertension I10 ; Peripheral arterial occlusive disease I77.9 ; Stage 3 chronic kidney disease N18.3 ; Iron deficiency anemia, unspecified iron deficiency anemia type D50.9 ; Tobacco dependence F17.200 ; 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, initial encounter S24.114A and Pernicious anemia D51.0 Jose G Dickerson III, MD [address] [place] [address] [place] [address] 11/17/2023 Jose G Dickerson III, MD [address] [place] [address] [place] [address] 08/15/2024 Jose G Dickerson III, MD [address] [place] [address] [address] [place] [address] 08/22/2024 Jose G Dickerson III, MD [address] [place] [address] [address] [place] [address] 08/26/2024 Jose G Dickerson III, MD [address] [place] [address] [address] [place] [address] 09/19/2024 Jose G Dickerson III, MD [address] [place] [address] [address] [place] [address] 09/28/2024 Jose G Dickerson Assessments Encounter Date Diagnosis (ICD Code) Assessment Notes Treatment Notes Treatment Clinical Notes 10/12/2024 Prostate cancer (ICD-10 - C61) His PSA remains low and controlled. He is tolerating his androgen deprivation well. He is treated with Eligard. He was at one point taking Xtandi. He is currently asymptomatic and has gained weight.The spinal cord is intact without epidural invasion on recent MRIs of the thoracic and lumbar spine. 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 Current therapy with intermittent androgen deprivation therapy was continued. 10/14/2023 Prostate cancer (ICD-10 - C61) He [...] observed carefully. His pressure today is 102/70. 09/27/2024 Prostate cancer (ICD-10 - C61) His PSA remains low and controlled. He is tolerating his androgen deprivation well. He is treated with Eligard. He was at one point taking Xtandi. He is currently asymptomatic and has gained weight.The spinal cord is intact without epidural invasion on recent MRIs of the thoracic and lumbar spine. 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 Current therapy with intermittent androgen deprivation therapy was continued. 09/27/2024 Preoperative clearance (ICD-10 - Z01.818) His risk of adverse consequences from surgery is higher than the average of a man his age who is healthy. However he is medically stable with no active cardiac disease. He is given medical clearance. The risks are fairly small and the benefit is great. An EKG chest x-ray and stress test and labs are pending at this time. 10/14/2023 Stage 3 chronic kidney disease (ICD-10 [...] to receive his bevacizumab injections from his insurance examiner. 02/03/2024 Macular degeneration of both eyes, unspecified type (ICD-10 - H35.30) He will continue to receive his bevacizumab injections from his insurance examiner. 2024 Iron deficiency anemia, unspecified iron deficiency [...] to receive his bevacizumab injections from his insurance examiner. 08/26/2024 Macular degeneration of both eyes, unspecified type (ICD-10 - H35.30) He will continue to receive his bevacizumab injections from his insurance examiner. 09/27/2024 Essential hypertension (ICD-10 - I10) His blood pressure is stable and no change in his regimen was needed today. 10/14/2023 Pernicious anemia (ICD-10 - D51.0) He received 1000 mcg of vitamin B12by intramuscular injection in the left armToday without difficulty. 11/11/2023 Macular degeneration of both eyes, unspecified type (ICD-10 - H35.30) He will continue to receive his bevacizumab injections from his insurance examiner. 12/09/2023 Tobacco dependence (ICD-10 - F17.200) I have discussed with him all of the long-term consequences of smoking and he is well aware of them. I have offered to refer him to smoking cessation programs at the [facility] and he will consider this. 01/06/2024 [...] him to smoking cessation programs at the [facility] and he will consider this. 04/15/2024 Tobacco dependence (ICD-10 - F17.200) I have discussed with him all of the long-term consequences of smoking and he is well aware of them. I have offered to refer him to smoking cessation programs at the [facility] and he will consider this. 04/28/2024 Tobacco dependence (ICD-10 - F17.200) I have discussed with him all of the long-term consequences of smoking and he is well aware of them. I have offered to refer him to smoking cessation programs at the [facility] and he will consider this. 06/08/2024 Macular degeneration of both eyes, unspecified type (ICD-10 - H35.30) He will continue to receive his bevacizumab injections from his insurance examiner. 07/07/2024 Iron deficiency anemia, unspecified iron deficiency [...] visit with renal was made upon discharge. 09/27/2024 Peripheral arterial occlusive disease (ICD-10 - I77.9) There is been no change in his claudication or peripheral arterial disease. He is up-to-date with his visits to the vascular surgeon. No open areas on his lower extremities. 10/14/2023 Peripheral arterial occlusive disease (ICD-10 - [...] to receive his bevacizumab injections from his insurance examiner. 07/12/2024 Iron deficiency anemia, unspecified iron deficiency [...] him to smoking cessation programs at the [facility] and he will consider this. 09/27/2024 Stage 3 chronic kidney disease (ICD-10 - N18.3) His BUN has dropped from 36-30 and his GFR has improved to 35. His creatinine is improved from 2.12-1.87. Current therapy was continued.He was seen in the hospital recently by nephrology consultation. Follow-up visit with renal was made upon discharge. 10/14/2023 Complete lesion at T11-T12 level of [...] him to smoking cessation programs at the [facility] and he will consider this. 03/30/2024 [...] active problem for him at this time. 09/27/2024 Iron deficiency anemia, unspecified iron deficiency anemia type (ICD-10 - D50.9) His ferritin which was 15 is now 32. He will continue on the ferrous gluconate. His hematocrit has improved to 33%. 10/14/2023 Chronic kidney disease, stage 3 unspecified (ICD-10 - N18.30) His GFR is 43. His BUN is lately. No change in his regimen as needed. 11/11/2023 Tobacco dependence (ICD-10 - F17.200) I have discussed with him all of the long-term consequences of smoking and he is well aware of them. I have offered to refer him to smoking cessation programs at the [facility] and he will consider this. 12/09/2023 [...] to receive his bevacizumab injections from his insurance examiner. 04/15/2024 Macular degeneration of both eyes, unspecified type (ICD-10 - H35.30) He will continue to receive his bevacizumab injections from his insurance examiner. 04/28/2024 Macular degeneration of both eyes, unspecified type (ICD-10 - H35.30) He will continue to receive his bevacizumab injections from his insurance examiner. 06/08/2024 Tobacco dependence (ICD-10 - F17.200) I have discussed with him all of the long-term consequences of smoking and he is well aware of them. I have offered to refer him to smoking cessation programs at the [facility] and he will consider this. 07/07/2024 [...] him to smoking cessation programs at the [facility] and he will consider this. 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 I will continue. We will begin receiving denosumab. 09/27/2024 Tobacco dependence (ICD-10 - F17.200) I have discussed with him all of the long-term consequences of smoking and he is well aware of them. I have offered to refer him to smoking cessation programs at the [facility] and he will consider this. 10/14/2023 Age-related cataract of both eyes, unspecified [...] him to smoking cessation programs at the [facility] and he will consider this. 02/03/2024 Tobacco dependence (ICD-10 - F17.200) I have discussed with him all of the long-term consequences of smoking and he is well aware of them. I have offered to refer him to smoking cessation programs at the [facility] and he will consider this. 2024 [...] injection in the left armToday without difficulty. 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 I will continue. We will begin receiving denosumab. 01/06/2024 Pernicious anemia (ICD-10 - D51.0) He [...] him to smoking cessation programs at the [facility] and he will consider this. 07/12/2024 [...] carefully. We discussed diet and nutrition today. 09/27/2024 Pernicious anemia (ICD-10 - D51.0) He received 1000 mcg of vitamin B12by intramuscular injection in the left armToday without difficulty. 07/07/2024 Pernicious anemia (ICD-10 - D51.0) He received 1000 mcg of vitamin B12by intramuscular injection in the left armToday without difficulty. Plan Of Treatment Pending Test Test Name Order Date US LEG UNILATERAL ARTERY 05/30/2021 US LEG UNILATERAL ARTERY 06/05/2021 ECG 12 lead EKG 09/27/2024 NM lamar perf SPECT rest & str 09/29/2024 NUC Stress Test 09/27/2024 Next Appt Details Provider Name:Jose G Dickerson, 10/26/2024 10:15:00 AM, [address] [place] [address] [address], [place], [address], Provider Name:Jose G Hurtne, 04/19/2025 02:00:00 PM, [address] [place] [address] [address], [place], [address], Insurance Providers Payer Name Payer Address Payer Phone Subscriber Number Group Number Insured Name Patient Relationship to Insured Coverage Start Date Coverage End Date MEDICARE NGS [address] [facility] [place] [place] [address] [id number] MACI BARAHONA Self - patient is the insured [employer] [address] [place], [place] [id number] MACI BARAHONA Self - patient is [...] Surgical drainage of scrotal abscess under anesthesia [facility] 03/2022 history of back surgery 02/2022 cryoablation of the prostate 2015 excision draining scrotal sinus 2013 incision and drainage left lateral thigh abscess 2008 Hospitalization History Reason Date(Month/Year) inpt at with UTI 08/2024 No history Drainage of scrotal abscess. [facility] 03/2022 Posterior Fusion Lumbar spine L3- L4 2021 CKD, CHF and HTN 08/2021
== END 2024-10-12 16:25 | disposition home or self-care (01) ==
LOC: HO.HNS 15:02
PROVIDERS: PCP Internal Medicine Medical Oncology; Visit Provider Neurological Surgery
DX: M48.062 Spinal stenosis, lumbar region with neurogenic claudication (principal)
CPT/HCPCS: 99214

== ENCOUNTER → 2024-10-12 15:01 | Outpatient (BNVA) | payer MEDICARE, SELFPAY | PROVIDERS: PCP Internal Medicine Medical Oncology; Visit Provider Neurological Surgery | DX: M48.062 Spinal stenosis, lumbar region with neurogenic claudication (principal) | CPT/HCPCS: 99212 ==

== ENCOUNTER 2024-10-13 09:27 | Outpatient (REF) | payer MEDICARE, SELFPAY ==
--- NOTE | ~2024-10-13 | XR_ITS ---
EXAMINATION: XR LUMBOSACRAL SPINE CLINICAL INFORMATION: C61 - Malignant neoplasm of prostate COMPARISON: September 12, 2021. Correlated to MRI dated August 08, 2024. TECHNIQUE: Three views of the lumbosacral spine. FINDINGS: No acute cortical disruption. Grade 1 retrolisthesis L3-4 and likely L2-3. Marginal osteophyte formation and endplate sclerosis with decreased intervertebral disc height throughout the axial skeleton. Dextroconvex rotoscoliosis of the upper lumbar spine apex at L2-3. Rudimentary rib, T12. Inferior posterior spinous processes hardware L4-5. Vascular calcifications, aorta. XR/XR lumbar spine 2-3V IMPRESSION: Overall no acute pathologic fracture. Please refer to the MRI lumbar spine. Electronically signed by: Hugo Ralph MD 10/13/2024 09:59 AM EDT
--- OUTSIDE RECORDS SUMMARY | 2024-10-13 10:20 | XMS_ITS | Patient Health Record ---
Author Organization Jose G Dickerson III, MD Address [address] [address] Care Team Providers Care Adventure Challenge Instructor Name Role Phone Jose G Dickerson [...] Electrolytes Reviewed date:11/11/2023 11:17:03 AM Interpretation: Performing Lab:[facility], [address] [place] [phone] Notes/Report: Sodium 144 135-145 mmol/L Potassium 5.7 3.3-5.1 mmol/L Slight Hemoly sis Chloride 111 96-108 mmol/L Carbon Dioxide 26 22-29 mmol/L Anion Gap 13 12-20 Potassium Reviewed date:11/11/2023 11:17:03 AM Interpretation: Performing Lab:[facility], [address] [place] [phone] Notes/Report: Potassium 5.3 3.3-5.1 mmol/L Complete Blood Count Auto Di ff Reviewed date:12/07/2023 02:14:46 PM Interpretation: Performing Lab:[facility], [address] [place] [phone] Notes/Report: White Blood Count 7.0 4.8-10.8 X10*3/uL [...] Panel Reviewed date:12/07/2023 02:14:46 PM Interpretation: Performing Lab:[facility], [address] [place] [phone] Notes/Report: Sodium 141 135-145 mmol/L Potassium 5.1 3.3-5.1 mmol/L Chloride 111 96-108 mmol/L Carbon Dioxide 24 22-29 mmol/L Anion Gap 11 12-20 Blood Urea Nitrogen 29 9-16 mg/dL Creatinine 1.82 0.5-1.4 mg/dL Estimated Glomerular Filt Rate 36 NOTE: For -Colombian individuals, multiply the result by 1.210. Chronic [...] Ferritin Reviewed date:12/07/2023 02:14:46 PM Interpretation: Performing Lab:[address] [phone] Notes/Report: Ferritin 110 20-250 ng/mL Prostate Specific Antigen Reviewed date:12/07/2023 02:14:46 PM Interpretation: Performing Lab:[address] [address] Notes/Report: Prostate Specific Antigen 0.25 <0.05-4.0 ng/mL PSA methodology: Dominguez Alinity i Chemiluminescent Microparticle Immunoassay (CMIA) NM bone scan whole body Reviewed date:03/23/2024 09:17:18 AM Interpretation: Performing Lab: Notes/Report: [address] [address] Nuclear Medicine Report Signed Patient: Maci Conley MR#: [id number] : 1950 Acct:[id number] Age/Sex: 73 / M ADM Date: 02/24/24 Loc: RACHID Attending Dr: David Montana MD Ordering Physician: David Montana MD Date of Service: 02/24/24 Procedure(s): NM bone scan whole body Accession Number(s): [id number] cc: Jose G Dickerson MD; David Montana [...] 03/16/24 1232 DD/ 1042 TD/TT: 02/24/24 1525 Culinary Intern: SANJAY [place] [address] Nuclear Medicine Report Signed Patient: Jose D Conley MR#: [id number] : 1950 Acct:[id number] Age/Sex: 73 / M ADM Date: 02/24/24 Loc: RACHID Attending Dr: Laura Montana MD Ordering Physician: David Montana MD Date of Service: 02/24/24 Procedure(s): NM bon e scan whole body Accession Number(s): [id number] cc: Jose G Dickerson MD; David Montana [...] 03/16/24 1232 DD/ 1042 TD/TT: 02/24/24 1525 Culinary Intern: SANJAY Complete Blood Count Auto Di ff Reviewed date:03/23/2024 09:17:17 AM Interpretation: Performing Lab:[facility], [address] [place] [phone] Notes/Report: White Blood Count 6.8 4.8-10.8 X10*3/uL [...] Panel Reviewed date:03/23/2024 09:17:18 AM Interpretation: Performing Lab:[facility], [address] [place] [phone] Notes/Report: Sodium 143 135-145 mmol/L Potassium 5.2 [...] Ferritin Reviewed date:03/23/2024 09:17:18 AM Interpretation: Performing Lab:[facility], [address] [place] [phone] Notes/Report: Ferritin 15 20-250 ng/mL Prostate Specific Antigen Reviewed date:03/23/2024 09:17:18 AM Interpretation: Performing Lab:[facility], [address] [place] [phone] Notes/Report: Prostate Specific Antigen 0.13 <0.05-4.0 ng/mL PSA methodology: Dominguez Alinity i Chemiluminescent Microparticle Immunoassay (CMIA) Vitamin B12 Reviewed date:03/23/2024 09:17:18 AM Interpretation: Performing Lab:[facility], [address] [place] [phone] Notes/Report: Vitamin B12 665 200-900 pg/mL NORMAL 200-900 PG/ML INDETERMINATE 160-199 PG/ML DEFICIENT < 160 PG/ML XR mandible min 4V Reviewed date:04/24/2024 08:39:55 PM Interpretation: Performing Lab: Notes/Report: [address] [place] [address] XRay Report Signed Patient: Maci Conley MR#: [id number] : 1950 Acct:[id number] Age/Sex: 74 / M ADM Date: 04/16/24 Loc: HO.JAIROAY Attending Dr: Jose G Dickerson MD Ordering Physician: Jose G Dickerson MD Date of Service: 04/16/24 Procedure(s): XR mandible min 4V Accession Number(s): [id number] cc: Jose G Dickerson MD EXAMINATION: XR [...] in OV> 04/18/24 1129 DD/ TD/TT: 04/16/2455 Culinary Intern: CATHY [address] [address] XRay Report Signed Patient: Jose D Conley MR#: [id number] : 1950 Acct:[id number] Age/Sex: 74 / M ADM Date: 04/16/24 Loc: HO.XRAY Attending Dr: Jose G Dickerson MD Ordering Physician: Jose G Dickerson MD Date of Service: 04/16/24 Procedure(s): XR man dible min 4V Accession Number(s): [id number] cc: Jose G Dickerson MD EXAMINATION: XR [...] OV> 04/18/24 1129 DD/ TD/TT: 04/16/24 0955 Culinary Intern: CATHY Complete Blood Count Auto Di ff Reviewed date:07/01/2024 06:26:39 AM Interpretation: Performing Lab:[facility], [address] [place] [phone] Notes/Report: White Blood Count 7.1 4.8-10.8 X10*3/uL [...] Panel Reviewed date:07/01/2024 06:26:39 AM Interpretation: Performing Lab:[facility], [address] [place] [phone] Notes/Report: Sodium 142 135-145 mmol/L Potassium 5.1 [...] Ferritin Reviewed date:07/01/2024 06:26:39 AM Interpretation: Performing Lab:[facility], [address] [place] [phone] Notes/Report: Ferritin 32 20-250 ng/mL Prostate Specific Antigen Reviewed date:07/01/2024 06:26:39 AM Interpretation: Performing Lab:[facility], [address] [place] [phone] Notes/Report: Prostate Specific Antigen 0.12 <0.05-4.0 ng/mL PSA methodology: Dominguez Alinity i Chemiluminescent Microparticle Immunoassay (CMIA) Vitamin B12 Reviewed date:07/01/2024 06:26:39 AM Interpretation: Performing Lab:[facility], [address] [place] [phone] Notes/Report: Vitamin B12 797 200-900 pg/mL NORMAL 200-900 PG/ML INDETERMINATE 160-199 PG/ML DEFICIENT < 160 PG/ML Gram stain Reviewed date:07/11/2024 06:13:00 AM Interpretation: Performing Lab:[facility], [address] [place] [phone] Notes/Report: Gram stain Gram stain results: Gram stain 2+ polys Gram stain 1+ Gram-positive cocci Routine Culture Reviewed date:07/11/2024 06:13:00 AM Interpretation: Performing Lab:[facility], [address] [place] [phone] Notes/Report: Routine Culture Report - external Routine Culture 1+ Mixed skin zander US abdominal aortic aneurysm Reviewed date:08/05/2024 03:27:00 PM Interpretation: Performing Lab: Notes/Report: [address] [address] Ultrasound Report Signed Patient: Maci Conley MR#: [id number] : 1950 Acct:[id number] Age/Sex: 74 / M ADM Date: 07/19/24 Loc: .US Attending Dr: Ricky Rendon MD Ordering Physician: Ricky Rendon MD Date of Service: 07/19/24 Procedure(s): US abdominal aortic aneurysm Accession Number(s): [id number] cc: Jose G Dickerson MD; Ricky Rendon [...] 07/21/24 1217 DD/ 1303 TD/TT: 07/19/24 1406 Culinary Intern: [place] [address] Ultrasound Report Signed Patient: Jose D Conley MR#: [id number] : 1950 Acct:[id number] Age/Sex: 74 / M ADM Date: 07/19/24 Loc: HO.US Attending Dr: Ricky Rendon MD Ordering Physician: Ricky Rendon MD Date of Service: 07/19/24 Procedure(s): US abdominal aortic aneurysm Accession Number(s): [id number] cc: Jose G Dickerson MD; Ricky Rendon [...] 07/21/24 1217 DD/ 1303 TD/TT: 07/19/24 1406 Culinary Intern: US arterial duplex BI w/ RAUL Reviewed date:08/05/2024 03:27:00 PM Interpretation: Performing Lab: Notes/Report: [address] [address] Ultrasound Report Signed Patient: Maci Conley MR#: [id number] : 1950 Acct:[id number] Age/Sex: 74 / M ADM Date: 07/19/24 Loc: HO.US Attending Dr: Ricky Rendon MD Ordering Physician: Ricky Rendon MD Date of Service: 07/19/24 Procedure(s): US arterial duplex BI w/ RAUL Accession Number(s): [id number] cc: Jose G Dickerson MD; Ricky Rendon [...] 07/21/24 1217 DD/ 1303 TD/TT: 07/19/24 1406 Culinary Intern: [place] [address] Ultrasound Report Signed Patient: Jose D Conley MR#: [id number] : 1950 Acct:[id number] Age/Sex: 74 / M ADM Date: 07/19/24 Loc: HO.US Attending Dr: Ricky Rendon MD Ordering Physician: Ricky Rendon MD Date of Service: 07/19/24 Procedure(s): US art erial duplex BI w/ RAUL Accession Number(s): [id number] cc: Jose G Dickerson MD; Ricky Rendon [...] 07/21/24 1217 DD/ 1303 TD/TT: 07/19/24 1406 Culinary Intern: Urine Culture Reviewed date:08/11/2024 08:13:59 PM Interpretation: Performing Lab:[facility], [address] [place] [phone] Notes/Report: O:ESCCOL Escherichia coli Urine Culture ESBL [...] date:08/05/2024 03:27:00 PM Interpretation: Performing Lab: Notes/Report: [address] [address] [address] Scan Report Signed Patient: Maci Conley MR#: [id number] : 1950 Acct:[id number] Age/Sex: 74 / M ADM Date: 08/04/24 Loc: HO.ED Attending Dr: Ordering Physician: Bettie Suarez DO Date of Service: 08/04/24 Procedure(s): CT abdomen pelvis wo IV con Accession Number(s): [id number] cc: Jose G Dickerson MD; Bettie uSarez DO Report Number: [id number]: Total DLP = 411.00 mGy-cm EXAMINATION: CT [...] 08/04/24 1315 DD/ 1242 TD/TT: 08/04/24 1242 Culinary Intern: [address] [address] [address] Scan Report Signed Patient: Jose D Conley MR#: [id number] : 1950 Acct:[id number] Age/Sex: 74 / M ADM Date: 08/04/24 Loc: HO.ED Attending Dr: Ordering Physician: Bettie Suarez DO Date of Service: 08/04/24 Procedure(s): CT abd omen pelvis wo IV con Accession Number(s): [id number] cc: Jose G Dickerson MD; Bettie Suarez [...] 08/04/24 1315 DD/ 1242 TD/TT: 08/04/24 1242 Culinary Intern: thoracic spine xiomy/dileep zaldivar Reviewed date:08/05/2024 03:27:00 PM Interpretation: Performing Lab: Notes/Report: [address] [address] Magnetic Resonance Report Signed Patient: Maci Conley MR#: [id number] : 1950 Acct:[id number] Age/Sex: 74 / M ADM Date: 08/04/24 Loc: [facility]: Violetta Tinsley MD Ordering Physician: Nathan Gastelum Date of Service: 08/04/24 Procedure(s): MR thoracic spine wo/w con Accession Number(s): [id number] cc: Nathan Gastelum; Jose G Dickerson MD [...] in OV> 08/04/24 1819 DD/ TD/TT: 08/04/241817 Culinary Intern: [address] [address] Magnetic Resonance Report Signed Patient: Jose D Conley MR#: [id number] : 1950 Acct:[id number] Age/Sex: 74 / M ADM Date: 08/04/24 Loc: [facility]- Attending Dr: Violetta Tinsley MD Ordering Physician: Nathan Gastelum Date of Service: 08/04/24 Procedure(s): MR shaver spine wo/w con Accession Number(s): [id number] cc: Nathan Gastelum; Jose G Dickerson MD [...] in OV> 08/04/241818 DD/ 17 TD/TT: 08/04/241817 Culinary Intern: JAIRO chest 1V Reviewed date:08/05/2024 03:27:00 PM Interpretation: Performing Lab: Notes/Report: [address] [address] XRay Report Signed Patient: Maci Conley MR#: [id number] : 1950 Acct:[id number] Age/Sex: 74 / M ADM Date: 08/04/24 Loc: .ED Attending Dr: Ordering Physician: Bettie Suarez DO Date of Service: 08/04/24 Procedure(s): XR chest 1V Accession Number(s): [id number] cc: Jose G Dickerson MD; Bettie Suarez [...] 08/04/24 1212 DD/ 1153 TD/TT: 08/04/24 1159 Culinary Intern: [place] [address] XRay Report Signed Patient: Jose D Conley MR#: [id number] : 1950 Acct:[id number] Age/Sex: 74 / M ADM Date: 08/04/24 Loc: .ED Attending Dr: Ordering Physician: Bettie Suarez DO Date of Service: 08/04/24 Procedure(s): XR chest 1V Accession Number(s): [id number] cc: Jose G Dickerson MD; Bettie Suarez [...] 08/04/24 1212 DD/ 1153 TD/TT: 08/04/24 1159 Culinary Intern: Complete Blood Count no Diff Reviewed date:08/05/2024 03:27:00 PM Interpretation: Performing Lab:[facility], [address] [place] [phone] Notes/Report: White Blood Count 9.6 4.8-10.8 X10*3/uL [...] Panel Reviewed date:08/05/2024 03:27:00 PM Interpretation: Performing Lab:[facility], [address] [place] [phone] Notes/Report: Sodium 140 135-145 mmol/L Potassium 4.3 [...] Antigen Reviewed date:08/05/2024 03:27:00 PM Interpretation: Performing Lab:[facility], [address] [place] [phone] Notes/Report: Prostate Specific Antigen 0.30 <0.05-4.0 ng/mL PSA methodology: Dominguez Alinity i Chemiluminescent Microparticle Immunoassay (CMIA) SARS-CoV2/FLU/RSV Reviewed date:08/05/2024 03:27:00 PM Interpretation: Performing Lab:[address] [address] Notes/Report: Influenza A PCR NEGATIVE Negative Influenza [...] by authorized laboratories. Testing performed on the [employer] GeneXpert utilizing real-time RT-PCR. All SARS CoV2 and positive influenza A/B results are reported to [facility]. CT head/brain wo con Reviewed date:08/07/2024 07:20:28 AM Interpretation: Performing Lab: Notes/Report: [address] [address] [address] Scan Report Signed Patient: Maci Conley MR#: [id number] : 1950 Acct:[id number] Age/Sex: 74 / M ADM Date: 08/04/24 Loc: .S3 357-[address]: Bassem Mehta MD Ordering Physician: Bassem Mehta MD Date of Service: 08/05/24 Procedure(s): CT head/brain wo IV con Accession Number(s): [id number] cc: Jose G Dickerson MD; Bassem Mehta MD Report Number: [id number]: Total DLP = 718.00 mGy-cm CLINICAL HISTORY: [...] in OV> 08/05/242055 DD/ 55 TD/TT: 08/05/242055 Culinary Intern: [place] [address] CT Scan Report Signed Patient: Jose D Conley MR#: [id number] : 1950 Acct:[id number] Age/Sex: 74 / M ADM Date: 08/04/24 Loc: HO.S3 357-[address]: Joel Mehta MD Ordering Physician: Bassem Mehta MD Date of Service: 08/05/24 Procedure(s): CT head/brain wo IV con Accession Number(s): [id number] cc: Jose G Dickerson MD; Bassem Mehta [...] in OV> 08/05/242055 DD/ 55 TD/TT: 08/05/242055 Culinary Intern: XR chest 2V Reviewed date:08/05/2024 03:27:00 PM Interpretation: Performing Lab: Notes/Report: [address] [address] XRay Report Signed Patient: Maci Conley MR#: [id number] : 1950 Acct:[id number] Age/Sex: 74 / M ADM Date: 08/04/24 Loc: .S3 357-[address]: Bassem Mehta MD Ordering Physician: Bassem Mehta MD Date of Service: 08/05/24 Procedure(s): XR chest 2V Accession Number(s): [id number] cc: Jose G Dickerson MD; Bassem Mehta [...] 08/05/24 1436 DD/ 135 TD/TT: 08/05/24 135 Culinary Intern: [address] [address] XRay Report Signed Patient: Jose D Conley MR#: [id number] : 1950 Acct:[id number] Age/Sex: 74 / M ADM Date: 08/04/24 Loc: .S3 357-[address]: Joel Mehta MD Ordering Physician: Bassem Mehta MD Date of Service: 08/05/24 Procedure(s): XR chest 2V Accession Number(s): [id number] cc: Jose G Dickerson MD; Bassem Mehta [...] 08/05/24 1436 DD/ 1350 TD/TT: 08/05/24 135 Culinary Intern: Eddie Sahu - Possible Hematolo gy Reviewed date:08/07/2024 07:20:28 AM Interpretation: Performing Lab:[facility], [address] [place] [phone] Notes/Report: Hold Lav - Possible Hematology SEE NOTE Specimen will be held untested for 8 hours. Call Hematology if testing is desired. Basic Metabolic Panel Reviewed date:08/07/2024 07:20:28 AM Interpretation: Performing Lab:[facility], [address] [place] [phone] Notes/Report: Sodium 140 135-145 mmol/L Potassium 4.0 [...] Procalcitonin Reviewed date:08/07/2024 07:20:28 AM Interpretation: Performing Lab:[facility], [address] [place] [phone] Notes/Report: Procalcitonin 14.76 Procalcitonin (PCT) Reference Range: [...] results from different laboratories and methodologies. References: [place]/Society of Critical Care [...] summary for [facility] PCT SHARON. http://www.accessdat a.fda.fov/cdrh_docs/ reviews/Y396009.pdf. Published May 2004. Accessed October 2016. Creatinine Urine Reviewed date:08/07/2024 07:20:28 AM Interpretation: Performing Lab:[facility], [address] [place] [phone] Notes/Report: Creatinine Urine 77.77 Sodium Urine Random Reviewed date:08/07/2024 07:20:28 AM Interpretation: Performing Lab:[facility], [address] [place] [phone] Notes/Report: Sodium Urine Random 56.0 Legionella Ag Urine Reviewed date:08/11/2024 08:13:59 PM Interpretation: Performing Lab:[address] [address] Notes/Report: Legionella Ag Urine Not Detected Not [...] or serogroups. THIS TEST WAS PERFORMED AT: [facility]/[address] [address] KAROL ARNDT MD,PHD MRSA Nasal Screen Reviewed date:08/07/2024 07:20:28 AM Interpretation: Performing Lab:[facility], [address] [place] [phone] Notes/Report: MRSA Nasal PCR NEGATIVE Negative SA Nasal PCR NEGATIVE Negative MRSA Interpretation SEE NOTE MRSA target DNA not detected; SA target DNA not detected. A MRSA NEGATIVE, SA NEGATIVE test result does not preclude MRSA or SA nasal colonization. Strep Pneumo Ag urine Reviewed date:08/11/2024 08:13:59 PM Interpretation: Performing Lab:[facility], [address] [place] [phone] Notes/Report: Strep Pneumo Ag urine Not Detected Not Detected THIS TEST WAS PERFORMED AT: [facility] [address] [address] KAROL ARNDT MD,PHD US renal BI Reviewed date:08/07/2024 07:20:28 AM Interpretation: Performing Lab: Notes/Report: [address] [address] Ultrasound Report Signed Patient: Maci Conley MR#: [id number] : 1950 Acct:[id number] Age/Sex: 74 / M ADM Date: 08/04/24 Loc: .S3 357-[address]: Bassem Mehta MD Ordering Physician: Bassem Mehta MD Date of Service: 08/06/24 Procedure(s): US renal BI Accession Number(s): [id number] cc: Jose G Dickerson MD; Bassem Mehat MD CLINICAL HISTORY: check for hydronephrosis US [...] in OV> 08/06/241228 DD/ 27 TD/TT: 08/06/241227 Culinary Intern: [address] [address] Ultrasound Report Signed Patient: Jose D Conley MR#: [id number] : 1950 Acct:[id number] Age/Sex: 74 / M ADM Date: 08/04/24 Loc: [facility] 357[facility]: Joel Mehta MD Ordering Physician: Bassem Mehta MD Date of Service: 08/06/24 Procedure(s): US renal BI Accession Number(s): [id number] cc: Jose G Dickerson MD; Bassem Mehta [...] in OV> 08/06/24 122 DD/ TD/TT: 08/06/241227 Culinary Intern: Basic Metabolic Panel Reviewed date:08/11/2024 08:13:59 PM Interpretation: Performing Lab:[facility], [address] [place] [phone] Notes/Report: Sodium 142 135-145 mmol/L Potassium 3.8 [...] Peptide Reviewed date:08/07/2024 07:20:28 AM Interpretation: Performing Lab:[facility], [address] [place] [phone] Notes/Report: B Type Natriuretic Peptide 191 <100 pg/mL Albumin Level Reviewed date:08/11/2024 08:13:59 PM Interpretation: Performing Lab:[facility], [address] [place] [phone] Notes/Report: Albumin Level 2.6 3.5-5.0 g/dL Hold Lav - Possible Hematolo gy Reviewed date:08/11/2024 08:13:59 PM Interpretation: Performing Lab:[facility], [address] [place] [phone] Notes/Report: Hold Lav - Possible Hematology SEE NOTE Specimen will be held untested for 8 hours. Call Hematology if testing is desired. Basic Metabolic Panel Reviewed date:08/11/2024 08:13:59 PM Interpretation: Performing Lab:[facility], [address] [place] [phone] Notes/Report: Sodium 142 135-145 mmol/L Potassium 3.9 [...] Procalcitonin Reviewed date:08/11/2024 08:13:59 PM Interpretation: Performing Lab:[facility], [address] [place] [phone] Notes/Report: Procalcitonin 3.54 Procalcitonin (PCT) Reference Range: [...] results from different laboratories and methodologies. References: [employer]/Society of Critical Care [...] 510(k) substantial equivalence determination decision summary for [facility] PCT SHARON. http://www.accessdat a.fda.fov/cdr_docs/ reviews/T534063.pdf. Published May 2004. Accessed October 2016. MR lumbar spine wo/w con Reviewed date:08/11/2024 08:13:59 PM Interpretation: Performing Lab: Notes/Report: [address] [address] Magnetic Resonance Report Signed Patient: Maci Conley MR#: [id number] : 1950 Acct:[id number] Age/Sex: 74 / M ADM Date: 08/04/24 Loc: HO.S3 357-[address]: Violetta Tinsley MD Ordering Physician: Bassem Mehta MD Date of Service: 08/08/24 Procedure(s): MR lumbar spine wo/w con Accession Number(s): [id number] cc: Jose G Dickerson MD; Bassem Mehta [...] 08/09/24 0821 DD/ 1440 TD/TT: 08/08/24 1520 Culinary Intern: [place] [address] Magnetic Resonance Report Signed Patient: Jose D Colney MR#: [id number] : 1950 Acct:[id number] Age/Sex: 74 / M ADM Date: 08/04/24 Loc: .S3 357-[address]: Violetta Tinsley MD Ordering Physician: Bassem Mehta MD Date of Service: 08/08/24 Procedure(s): MR lum bar spine wo/w con Accession Number(s): [id number] cc: Jose G Dickerson MD; Bassem Mehta [...] 08/09/24 0821 DD/ 1440 TD/TT: 08/08/24 1520 Culinary Intern: Complete Blood Count Auto Di ff Reviewed date:09/27/2024 01:57:42 PM Interpretation: Performing Lab:[facility], [address] [place] [phone] Notes/Report: White Blood Count 9.7 4.8-10.8 X10*3/uL [...] Panel Reviewed date:09/27/2024 01:57:42 PM Interpretation: Performing Lab:[address] [address] Notes/Report: Sodium 141 135-145 mmol/L Potassium 5.3 [...] Antigen Reviewed date:09/27/2024 01:57:42 PM Interpretation: Performing Lab:[address] [address] Notes/Report: Prostate Specific Antigen 0.23 <0.05-4.0 ng/mL PSA methodology: Dominguez Alinity i Chemiluminescent Microparticle Immunoassay (CMIA) Testosterone, Total Reviewed date:09/27/2024 01:57:42 PM Interpretation: Performing Lab:[address] [address] Notes/Report: Testosterone, Total 2 250-1100 ng/dL Men with clinically significant hypogonadal symptoms and testosterone values repeatedly in the range of the 200-300 ng/dL or less, may benefit from testosterone treatment after adequate risk and benefits counseling. For additional information, please refer to http://education.The [employer] Daily.Changba/fa q/ TotalTestosteroneM [id number] (This link is being provided for informational/ educational purposes only.) This test was developed and its analytical performance characteristics have been determined by [facility] [place], [place]. It has not been cleared or approved by the U.S. Food and Drug Administration. This assay has been validated pursuant to the CLIA regulations and is used for clinical purposes. THIS TEST WAS PERFORMED AT: [facility] [id number] [place] [address] KAROL ARNDT MD,PHD NM lamar perf SPECT rest & str (Not yet reviewed by provider) Interpretation: Performing Lab: Notes/Report: [address] [address] Nuclear Medicine Report Signed Patient: Maci Conley MR#: [id number] : 1950 Acct:[id number] Age/Sex: 74 / M ADM Date: 09/29/24 Loc: DAVID Attending Dr: Jose G Dickerson MD Ordering Physician: Jose G Dickerson MD Date of Service: 09/29/24 Procedure(s): NM lamar perf SPECT rest str Accession Number(s): [id number] cc: Jose G Dickerson MD Lexiscan Myocardial [...] 10/04/24 1113 DD/ 1030 TD/TT: 10/03/24 1355 Culinary Intern: [place] [address] Nuclear Medicine Report Signed Patient: Jose D Conley MR#: [id number] : 1950 Acct:[id number] Age/Sex: 74 / M ADM Date: 09/29/24 Loc: [facility] Attending Dr: Jose G Dickerson MD Ordering Physician: Jose G Dickerson MD Date of Service: 09/29/24 Procedure(s): NM lamar perf SPECT rest str Accession Number(s): [id number] cc: Jose G Dickerson MD Lexiscan Myocardial perfusion study Indication: Preoperative cardiac evaluation Technique: The patient was brou t in for a Lexiscan perfusion study on 09/29/2024 and was injected 0.4 mg of Lexiscan intravenously. Within a minute of this injection 25 mC i of sestamibi was given intravenously. Images were obtained using the Workboard gamma camera interlaced with the gating device. [...] 10/04/2024 11:13 AM EDT RP Workstatio n: [id number] Dictated By: Marques Patel MD Signed By: <Electronically signed by Marques Patel MD in OV> 10/04/24 1113 DD/ 1030 TD/TT: 10/03/24 1355 Culinary Intern: XR lumbar spine 2-3V (Not ye t reviewed by provider) Interpretation: Performing Lab: Notes/Report: [address] [address] XRay Report Signed Patient: Maci Conley MR#: [id number] : 1950 Acct:[id number] Age/Sex: 74 / M ADM Date: 10/13/24 Loc: SEVEN Attending Dr: Blair Plata MD, PhD Ordering Physician: Blair Plata MD, PhD Date of Service: 10/13/24 Procedure(s): XR lumbar spine 2-3V Accession Number(s): [id number] cc: Jose G Dickerson MD; Blair Plata MD, PhD EXAMINATION: XR LUMBOSACRAL SPINE CLINICAL INFORMATION: C61 - Malignant neoplasm of prostate COMPARISON: September 12, 2021. Correlated to MRI dated August 08, 2024. TECHNIQUE: Three views of the lumbosacral spine. FINDINGS: No acute cortical disruption. Grade 1 retrolisthesis L3-4 and likely L2-3. Marginal osteophyte formation and endplate sclerosis with decreased intervertebral disc height throughout the axial skeleton. Dextroconvex rotoscoliosis of the upper lumbar spine apex at L2-3. Rudimentary rib, T12. Inferior posterior spinous processes hardware L4-5. Vascular calcifications, aorta. XR/XR lumbar spine 2-3V IMPRESSION: Overall no acute pathologic fracture. Please refer to the MRI lumbar spine. Electronically signed by: Hugo Ralph MD 10/13/2024 09:59 AM EDT RP Dictated By: Hugo Callejas MD Signed By: <Electronically signed by Hugo Haider MD in OV> 10/13/2459 DD/ TD/TT: 10/13/24 0950 Culinary Intern: [address] [address] XRay Report Signed Patient: Jose D Conley MR#: [id number] : 1950 Acct:[id number] Age/Sex: 74 / M ADM Date: 10/13/24 Loc: HO.XRAY Attending Dr: Susan Plata MD, PhD Ordering Physician: Blair Plata MD, PhD Date of Service: 10/13/24 Procedure(s): XR lum bar spine 2-3V Accession Number(s): [id number] cc: Jose G Dickerson MD; Blair Plata MD, PhD EXAMINATION: XR LUMBOSACRAL SPINE CLINICAL INFORMATION: C61 - Malignant neop lasm of prostate COMPARISON: September 12, 2021. Correlated to MRI da nikolas August 08, 2024. TECHNIQUE: Three views of the lumbosacral spine. FINDINGS: No acute cortical disruption. Grade 1 retrolisthes is L3-4 and likely L2-3. Marginal osteophyte formation and endplate sclerosis with decreased intervertebral disc height throughout the axial skeleton. Dextroconvex rotoscoliosis of the upper lumbar spine apex at L2-3. Rudimentary rib, T12. Inferior posterior spinous processes hardware L4-5. Vascular calcificati ons, aorta. X R/XR lumbar spine 2-3V IMPRESSION: Overall no acute pathologic fracture. Please refer to the MRI lumbar spine. Electronically kalyan d by: Hugo Ralph MD 10/13/2024 09:59 AM EDT RP Dictated By: Hugo Huston MD Signed By: <Electronically signed by Hugo Haider MD in OV> 10/13/2459 DD/ 9 TD/TT: 10/13/24 0950 Culinary Intern: Reason For Referral Reason Evaluate and Treat Blood in Stool Diagnosis 1 Blood in stool (K92. 1) Referral Organization Jose G Dickerson III, MD Referring Provider First Name Jose G Referring Provider Last Name Jayla Referring Provider Speciality Internal edicine Referred Organization [facility] Referred Provider [facility] er, Gastroenterology Referred Address [address] [place] [address],[place], [place],[id number], Referred Provider Specialty Gastroentero logluna General Notes Elvira Castle 08/18/2024 04:05:39 PM > Referral was faxed. Referral Priority Routine Referral Appointment Date 12/07/2024 Reason Consult and Treat MRI done at [facility] on 08/08/2024 Spinal Canal Stenosis L3-4 Herniated Disc Diagnosis 1 Herniated lumbar int ervertebral disc (M51.26) Diagnosis 2 Spinal stenosis, lum bosacral region (M48.07) Referral Organization Jose G Dickerson III, MD Referring Provider First Name Jose G Referring Provider Last Name Jayla Referring Provider Speciality Internal edicine Referred Provider BLAIR PLATA Referred Provider Specialty Neurosurgery General Notes [...] Problem Status W/U Status Risk Notes Problem 090060384 Overweight (E66.3) Active confirmed He has lost 5 pounds since his last visit and is no longer overweeight. His weight will be followed carefully. We discussed diet and nutrition today. Problem 073260492 Prostate cancer (C61) Active confirmed His PSA [...] intermittent androgen deprivation therapy was continued. Problem 604639249 B12 deficiency (E53.8) Active confirmed He received a B 12 injection today without difficulty in the left arm. 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 I will continue. We will begin receiving denosumab. Problem 45174669 Essential hypertension (I10) Active confirmed His blood pressure is stable and no change in his regimen was needed today. Problem 86531462 Tobacco dependence (F17.200) Active confirmed I have discusse d with him all of the long-term consequences of smoking and he is well aware of them. I have offered to refer him to smoking cessation programs at the [facility] and he will consider this. Problem 63966703 Pernicious anemia (D51.0) Active confirmed He received 1 000 mcg of vitamin B12by intramuscular injection in the left armToday without difficulty. Problem 21045823 Iron deficiency anemia, unspecified iron deficiency anemia type (D50.9) Active confirmed His ferritin which was 15 is now 32. He will continue on the ferrous gluconate. His hematocrit has improved to 33%. Problem 890604637 Stage 3 chronic kidney disease (N18.3) Active confirmed His BUN has dropped from 36-30 and his GFR has improved to 35. His creatinine is improved from 2.12-1.87. Current therapy was continued.He was seen in the hospital recently by nephrology consultation. Follow-up visit with renal was made upon discharge. Problem 47996958 Age-related cataract of both eyes, unspecified age-related cataract type (H25.9) Active confirmed He is medically cleared for bilateral cataract extraction with a normal risk of a man his age. There is no contraindication to surgery. Problem 002411467 Macular degeneration of both eyes, unspecified type (H35.30) Active confirmed He will contin ue to receive his bevacizumab injections from his scruff worker. Problem Peripheral arterial occlusive disease (965195453) Peripheral arterial occlusive disease (I77.9) Active confirmed There is bee n no change in his claudication or peripheral arterial disease. He is up-to-date with his visits to the vascular surgeon. No open areas on his lower extremities. Problem 10212479 Preoperative clearance (Z01.818) Active confirmed His risk [...] Problem Chronic kidney disease stage 3 (disorder) (396373213) Chronic kidney disease, stage 3 unspecified (N18.30) Active confirmed His GFR is 43. His BUN is lately. No change in his regimen as needed. Problem Chronic kidney disease stage 3A (disorder) (493987903) Chronic kidney disease, stage 3a (N18.31) Active confirmed Vital Signs Heart Rate 97 /min 10/12/2024 Temperature 97.0 degrees Fahrenheit 10/12/2024 Blood pressure diastolic 70 mm Hg 10/12/2024 Height 69 in 10/12/2024 Blood pressure systolic 107 mm Hg 10/12/2024 Weight 158 lbs 10/12/2024 BMI 23.33 kg/m2 10/12/2024 Encounters Encounter Location Date Provider Diagnosis Jose G Dickerson III, MD [address] [place] [address] [place] [address] 10/12/2024 Jose G Hurtne Prostate cancer C61 Jose G Dickerson III, MD [address] [place] [address] [place] [address] 10/14/2023 Jose G Hurtne Prostate cancer C61 [...] H25.9 Jose G Dickerson III, MD [address] [place] [address] [place] [address] 11/11/2023 Jose G Dickerson Prostate cancer C61 [...] D51.0 Jose G Dickerson III, MD [address] [place] [address] [place] [address] 12/09/2023 Jose G Hurtne Prostate cancer C61 ; Essential hypertension I10 ; Stage 3 chronic kidney disease N18.3 ; Tobacco dependence F17.200 ; Peripheral arterial occlusive disease I77.9 ; 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, initial encounter S24.114A and Pernicious anemia D51.0 Jose G Dickerson III, MD [address] [place] [address] [place] [address] 01/06/2024 Jose G Dickerson Prostate cancer C61 [...] D51.0 Jose G Dickerson III, MD [address] [place] [address] [place] [address] 02/03/2024 Jose G Dickerson Prostate cancer C61 [...] F17.200 Jose G Dickerson III, MD [address] [place] [address] [place] [address] 2024 Jose G Dickerson Essential hypertensi on I10 ; Prostate cancer C61 ; Iron deficiency anemia, unspecified iron deficiency anemia type D50.9 ; Vitamin B12 deficiency E53.8 ; Stage 3 chronic kidney disease N18.3 ; Tobacco dependence F17.200 ; Overweight E66.3 and Peripheral arterial occlusive disease I77.9 Jose G Dickerson III, MD [address] [place] [address] [place] [address] 03/30/2024 Jose G Dickerson Essential hypertensi on I10 ; Prostate cancer C61 ; Stage 3 chronic kidney disease N18.3 ; Tobacco dependence F17.200 ; Iron deficiency anemia, unspecified iron deficiency anemia type D50.9 ; Vitamin B12 deficiency E53.8 ; Macular degeneration of both eyes, unspecified type H35.30 and Peripheral arterial occlusive disease I77.9 Jose G Dickerson III, MD [address] [place] [address] [place] [address] 04/15/2024 Jose G Dickerson Essential hypertensi on [...] E53.8 Jose G Dickerson III, MD [address] [place] [address] [place] [address] 04/28/2024 Jose G Dickerson Essential hypertensi on I10 ; Prostate cancer C61 ; Stage 3 chronic kidney disease N18.3 ; Tobacco dependence F17.200 ; Iron deficiency anemia, unspecified iron deficiency anemia type D50.9 ; Peripheral arterial occlusive disease I77.9 ; Macular degeneration of both eyes, unspecified type H35.30 and Pernicious anemia D51.0 Jose G Dickerson III, MD [address] [place] [address] [place] [address] 06/08/2024 Jose G Dickerson Essential hypertensi on I10 ; Prostate cancer C61 ; Iron deficiency anemia, unspecified iron deficiency anemia type D50.9 ; Macular degeneration of both eyes, unspecified type H35.30 ; Stage 3 chronic kidney disease N18.3 ; Peripheral arterial occlusive disease I77.9 ; Tobacco dependence F17.200 ; Overweight E66.3 and Pernicious anemia D51.0 Jose G Dickerson III, MD [address] [place] [address] [place] [address] 07/07/2024 Jose G Dickerson Essential hypertensi on [...] D51.0 Jose G Dickerson III, MD [address] [place] [address] [place] [address] 07/12/2024 Jose G Dickerson Essential hypertensi on [...] L02.92 Jose G Dickerson III, MD [address] [place] [address] [place] [address] 08/26/2024 Jose G Dickerson Prostate cancer C61 ; Essential hypertension I10 ; Macular degeneration of both eyes, unspecified type H35.30 ; Stage 3 chronic kidney disease N18.3 ; Tobacco dependence F17.200 ; Peripheral arterial occlusive disease I77.9 ; 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, initial encounter S24.114A ; Pernicious anemia D51.0 and Overweight E66.3 Jsoe G Dickerson III, MD [address] [place] [address] [place] [address] 09/27/2024 Jose G Dickerson Prostate cancer C61 [...] D51.0 Jose G Dickerson III, MD [address] [place] [address] [place] [address] 11/17/2023 Jose G Dickerson III, MD [address] [place] [address] [place] [address] 08/15/2024 Jose G Dickerson III, MD [address] [place] [address] [place] [address] 08/22/2024 Jose G Dickerson III, MD [address] [place] [address] [place] [address] 08/26/2024 Jose G Dickerson III, MD [address] [place] [address] [place] [address] 09/19/2024 Jose G Dickerson III, MD [address] [place] [address] [place] [address] 09/28/2024 Jose G Dickerson Assessments Encounter Date [...] to receive his bevacizumab injections from his scruff worker. 02/03/2024 Macular degeneration of both eyes, unspecified type (ICD-10 - H35.30) He will continue to receive his bevacizumab injections from his scruff worker. 2024 Iron deficiency anemia, unspecified iron deficiency [...] to receive his bevacizumab injections from his scruff worker. 08/26/2024 Macular degeneration of both eyes, unspecified type (ICD-10 - H35.30) He will continue to receive his bevacizumab injections from his scruff worker. 09/27/2024 Essential hypertension (ICD-10 - I10) His blood pressure is stable and no change in his regimen was needed today. 10/14/2023 Pernicious anemia (ICD-10 - D51.0) He received 1000 mcg of vitamin B12by intramuscular injection in the left armToday without difficulty. 11/11/2023 Macular degeneration of both eyes, unspecified type (ICD-10 - H35.30) He will continue to receive his bevacizumab injections from his scruff worker. 12/09/2023 Tobacco dependence (ICD-10 - F17.200) I have discussed with him all of the long-term consequences of smoking and he is well aware of them. I have offered to refer him to smoking cessation programs at the [facility] and he will consider this. 01/06/2024 [...] him to smoking cessation programs at the [facility] and he will consider this. 04/15/2024 Tobacco dependence (ICD-10 - F17.200) I have discussed with him all of the long-term consequences of smoking and he is well aware of them. I have offered to refer him to smoking cessation programs at the [facility] and he will consider this. 04/28/2024 Tobacco dependence (ICD-10 - F17.200) I have discussed with him all of the long-term consequences of smoking and he is well aware of them. I have offered to refer him to smoking cessation programs at the [facility] and he will consider this. 06/08/2024 Macular degeneration of both eyes, unspecified type (ICD-10 - H35.30) He will continue to receive his bevacizumab injections from his scruff worker. 07/07/2024 Iron deficiency anemia, unspecified iron deficiency [...] to receive his bevacizumab injections from his scruff worker. 07/12/2024 Iron deficiency anemia, unspecified iron deficiency [...] him to smoking cessation programs at the [facility] and he will consider this. 09/27/2024 [...] him to smoking cessation programs at the [facility] and he will consider this. 03/30/2024 [...] him to smoking cessation programs at the [facility] and he will consider this. 12/09/2023 [...] to receive his bevacizumab injections from his scruff worker. 04/15/2024 Macular degeneration of both eyes, unspecified type (ICD-10 - H35.30) He will continue to receive his bevacizumab injections from his scruff worker. 04/28/2024 Macular degeneration of both eyes, unspecified type (ICD-10 - H35.30) He will continue to receive his bevacizumab injections from his scruff worker. 06/08/2024 Tobacco dependence (ICD-10 - F17.200) I have discussed with him all of the long-term consequences of smoking and he is well aware of them. I have offered to refer him to smoking cessation programs at the [facility] and he will consider this. 07/07/2024 [...] him to smoking cessation programs at the [facility] and he will consider this. 08/26/2024 [...] him to smoking cessation programs at the [facility] and he will consider this. 10/14/2023 [...] him to smoking cessation programs at the [facility] and he will consider this. 02/03/2024 Tobacco dependence (ICD-10 - F17.200) I have discussed with him all of the long-term consequences of smoking and he is well aware of them. I have offered to refer him to smoking cessation programs at the [facility] and he will consider this. 2024 [...] him to smoking cessation programs at the [facility] and he will consider this. 07/12/2024 [...] lamar perf SPECT rest & str 09/29/2024 XR lumbar spine 2-3V 10/13/2024 NUC Stress Test 09/27/2024 Next Appt Details Provider Name:Jose G Dickerson, 10/26/2024 10:15:00 AM, [address] [place] [address] [address], [place], [address], Provider Name:Jose G Dickerson, 04/19/2025 02:00:00 PM, [address] [place] [address] [address], [place], [address], Insurance Providers Payer Name Payer Address Payer Phone Subscriber Number Group Number Insured Name Patient Relationship to Insured Coverage Start Date Coverage End Date MEDICARE NGS [address] [place] [address] [phone] [id number] MACI BARAHONA Self - patient is the insured [employer] [address] [place], [place] [id number] MACI BARAHONA Self - patient is the insured Medical (General) History Medical History History ICD Code Hypertension I10 Hyperlipidemia E78.5 carcinoma of the prostate and 2011 in remission after radiation and cryoablation excised scrotal abscess 14 left lateral thigh abscess incised and d rained February 2009 macular degeneration, Dr. Jacob CKD stage III, hypertensive nephrosclero sis iron deficiency anemia urinary incontinence history of back surgery tobacco dependence renal cysts overweight Scrotal abscess February 202208/2024 inpt at with UTI Surgical History Surgery Date(Month/Year) No history Cataract Surgery, right eye 2023 Surgical drainage of scrotal abscess under anesthesia [facility] 03/2022 history of back surgery 02/2022 cryoablation of the prostate 2014 excision draining scrotal sinus 2013 incision and drainage left lateral thigh abscess 2008 Hospitalization History Reason Date(Month/Year) inpt at with UTI 08/2024 No history Drainage of scrotal abscess. [facility] 03/2022 Posterior Fusion Lumbar spine L3- L4 2021 CKD, CHF and HTN 08/2021
== END 2024-10-13 09:28 | disposition home or self-care (01) ==
LOC: HO.XRAY 09:27
PROVIDERS: PCP Internal Medicine Medical Oncology; Visit Provider Neurological Surgery
DX: C61 Malignant neoplasm of prostate (principal); C79.51 Secondary malignant neoplasm of bone
CPT/HCPCS: 72100

== ENCOUNTER → 2024-10-13 09:31 | Outpatient (BNV) | payer MEDICARE, SELFPAY | PROVIDERS: PCP Internal Medicine Medical Oncology; Visit Provider Radiology Diagnostic Radiology | DX: C61 Malignant neoplasm of prostate (principal) | CPT/HCPCS: 72100 ==

== ENCOUNTER 2024-11-17 08:36 | Day surgery (SDC) | payer MEDICARE, SELFPAY ==
[2024-11-03 12:14] VITALS: BP 105/55; PULSE 92; RESP 20; O2SAT 98; BMI 21.0
--- NOTE | 2024-11-03 12:22 | HO.ANESPROP2 ---
Documented by User: Carmen Simms NP 11/15/24 14:37 HPI - Anesthesia Eval Consult details Narrative: 74yo M for Right L3-4, Decompression, 11/17/24 Medically optimized per PCP per 09/2024 preop eval visit No recent illness No CP/SOB with very limited activity UTI currently: Macrobid started 11/02/24 Prostate with mets to spine s/p radiation CKD St 3: [place]s [facility] - last office visit 05/2024 and consult during 08/2024 admission. Bump in creat to >3 09/2024, baseline 1.9 - repeat labs with PAT. 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 Sepsis due to UTI and also pneumonia, UCx grew ESBL E. coli initially treated with ceftriaxone 08/04-08/06 subsequently transitioned to meropenem now being discharged on IV ertapenem 0.5 gm for total 10 days end date 08/16 as per ID recommendation, blood cultures x2 are negative, midline placed, PCT is trending down, also treated with doxycycline for pneumonia end date 08/11 , MRSA swab negative; urinary antigens for Legionella and pneumococcus pending. CRISTIANA/CKD3, treated with IV fluids renal function returned to baseline Prostate CA with known T12 blastic lesion, MR T-spine showed no evidence of epidural extension and no other suspicious bony lesions , treated with IV morphine and oxycodone for pain control, seen by Urology regarding difficulty urination started on Flomax 0.4 mg, MR lumbar spine obtained due to weakness left lower extremity, that showed less conspicuous osseous metastasis overall improved, no acute pathological fracture, multilevel spondylosis resulting in central spinal canal and bilateral neuroforaminal stenosis from L2 to L5. Recommend to continue analgesics and physical therapy. Chronic anemia stable continue Fe supplementation. PMFSH Active Problems Active Problems: All Active Problems (Updated 11/03/24 @ 12:04 by Yady Sullivan RN) Prostate cancer metastatic to bone (Acute) Fever (Acute) Acute UTI (Acute) Acute kidney injury superimposed on chronic kidney disease (Acute) Chronic low back pain (Acute) Lumbar degenerative disc disease (Acute) Lumbar spinal stenosis (Acute) Chronic pain syndrome (Acute) Complicated urinary tract infection (Acute) Malignant neoplasm prostate (Acute) Prostate cancer metastatic to bone (Acute) Rising PSA following treatment for malignant neoplasm of prostate (Acute) Anemia (Acute) Scrotal abscess (Acute) Abscess of scrotum (Acute) Physical deconditioning (Acute) Radiation cystitis (Acute) CKD (chronic kidney disease) stage 3, GFR 30-59 ml/min (Acute) Thrombocytopenia (Acute) Closed traumatic nondisplaced fracture of phalanx of toe (Acute) PAD (peripheral artery disease) (Acute) Urinary urgency (Acute) Nocturia more than twice per night (Acute) Prostate cancer (Acute) Urgency of micturition (Acute) History of back surgery (Acute) Prostate cancer (Acute) Urgency incontinence (Acute) Hypertension (Acute) Past Medical History Medical History UTI (urinary tract infection) CHF (congestive heart failure) Overweight Renal cyst Tobacco dependence Urinary incontinence Iron deficiency anemia Hx of radiation therapy Stenosis of lumbosacral spine Falls Hypertension Hypercholesteremia Kidney disease Macular degeneration Hematuria Urgency incontinence Prostate cancer Family History Family History Other No family history of coronary artery disease Family history of problems with anesthesia: No Surgical History Surgical History Hx of prostate biopsy Hx of cataract extraction History of incision and drainage History of back surgery History of Problems with Anesthesia: No Social History Social History Household Members: Spouse Housing: House Are you a primary customer care team coach to a significant other at home: No Do you presently have visiting nurse or other home services: No Alcohol intake: former Patient Tobacco Use Status: Current everyday Tobacco user Smoking Start Date: 06/18/61 Tobacco use type: Cigarette Cigarette Packs Per Day: 0.5 Cigarettes Per Day: 4 Years Smoked: 65 e-Cigarette/Vaping Use: Never Used Second Hand Smoke Exposure: No Use of substances other than those prescribed or required for medical reasons: No Have you been hit, kicked, punched, or otherwise hurt by someone within the past year? If so, by whom?: No Spiritual Healthcare Practices: no Confucianist Healthcare Practices: no Cultural Healthcare Practices: no Are you DNR?: Yes Advance Directives: Yes Advance Directives Information Provided: Yes Advance Directives on File: Yes Advance Directives Date on File: 02/19/21 service: Yes Current occupational status: retired Meds Allergies Allergy/AdvReac Type Severity Reaction Status Date / Time No Known Allergies (No Known Allergy Verified 09/29/24 08:28 Allergies*) Home Medications ?Medication ?Instructions ?Recorded ?Confirmed ?Last Taken ?Type ferrous gluconate 324 mg (38 mg 1 tab PO QAM 03/04/22 11/03/24 08/03/24 History iron) tablet acetaminophen 500 mg tablet 1,000 mg PO TID PRN Fever Or Pain 08/04/24 11/03/24 08/03/24 History tamsulosin 0.4 mg capsule 0.4 mg PO DAILY 11/03/24 11/03/24 Unknown History Exam Height,Weight and Vital Signs: Height 6 ft Weight 70.2 kg Last Vital Signs Pulse 92 11/03/24 12:14 Resp 20 11/03/24 12:14 BP 105/55 L 11/03/24 12:14 Pulse Ox 98 11/03/24 12:14 O2 Del Method Room Air 11/03/24 12:14 Pertinent Lab Results Pertinent Lab Results: Lab Results 11/03/24 Range/Units 12:58 WBC 5.9 (4.8-10.8) X10*3/uL RBC 3.22 L (4.60-5.80) X10*6/uL Hgb 9.1 L (14.0-18.0) g/dl Hct 30.3 L (42.0-52.0) % MCV 94.1 (80.0-98.0) fL MCH 28.3 (27.0-33.0) pg MCHC 30.0 L (31.0-36.0) g/dl RDW 15.8 (11.0-16.0) % Plt Count 335 (160-400) X10*3/uL MPV 9.3 L (9.4-12.4) fL Absolute Nucleated RBC 0.000 (0.0-0.012) X10*3/uL Nucleated RBC % (auto) 0.0 (0.0-0.2) /100WBC Sodium 139 (135-145) mmol/L Potassium 5.4 H (3.3-5.1) mmol/L Chloride 110 H (96-108) mmol/L Carbon Dioxide 23 (22-29) mmol/L Anion Gap 11 L (12-20) BUN 41 H (9-16) mg/dL Creatinine 2.07 H (0.5-1.4) mg/dL Estim Creat Clear Calc 30.1 Estimated GFR 31 Random Glucose 100 (60-115) mg/dL Calcium 9.3 (8.4-10.2) mg/dL Narrative Narrative: EKG 09/2024 Vent. Rate : 85 BPM Atrial Rate : 85 BPM P-R Int : 158 ms QRS Dur : 78 ms QT Int : 358 ms P-R-T Axes : 63 64 46 degrees QTcB Int : 426 ms Normal sinus rhythm Normal ECG When compared with ECG of 04-Aug-2024 11:31, No significant change was found Nuc Stress 09/2024 NM lamar perf SPECT rest & str Impression: 1. Myocardial perfusion imaging study shows normal myocardial perfusion. 2. Gated LVEF is 70% during rest and visually normal during stress. Correlate with echocardiogram. 3. Transient ischemic dilatation not present. EKG component of the test reported separately. Airway Mallampati Class: II TM Dist: >3cm Neck ROM: Full Denture: Upper Partial: Lower Heart: RRR Lungs: CTAB Assessment and Plan Assessment Anesthesia Assessment: Anesthesia Plan Discussed, Smoking Cess. Discussed and PAT Visit Final Anesthetic Review Family History of Problems with Anesthesia: No History of Problems with Anesthesia: No Documented by User: Marj Lopez MD 11/17/24 08:48 [facility] Past Medical History Medical History UTI (urinary tract infection) CHF (congestive heart failure) Overweight Renal cyst Tobacco dependence Urinary incontinence Iron deficiency anemia Hx of radiation therapy Stenosis of lumbosacral spine Falls Hypertension Hypercholesteremia Kidney disease Macular degeneration Hematuria Urgency incontinence Prostate cancer Family History Family History Other No family history of coronary artery disease Surgical History Surgical History Hx of prostate biopsy Hx of cataract extraction History of incision and drainage History of back surgery Social History Social History Household Members: Spouse Housing: House Are you a primary customer care team coach to a significant other at home: No Do you presently have visiting nurse or other home services: No Alcohol intake: former Patient Tobacco Use Status: Current everyday Tobacco user Smoking Start Date: 06/18/61 Tobacco use type: Cigarette Cigarette Packs Per Day: 0.5 Cigarettes Per Day: 4 Years Smoked: 65 e-Cigarette/Vaping Use: Never Used Second Hand Smoke Exposure: No Use of substances other than those prescribed or required for medical reasons: No Have you been hit, kicked, punched, or otherwise hurt by someone within the past year? If so, by whom?: No Spiritual Healthcare Practices: no Confucianist Healthcare Practices: no Cultural Healthcare Practices: no Are you DNR?: Yes Advance Directives: Yes Advance Directives Information Provided: Yes Advance Directives on File: Yes Advance Directives Date on File: 02/19/21 service: Yes Current occupational status: retired [employer] Allergies Allergy/AdvReac Type Severity Reaction Status Date / Time No Known Allergies (No Known Allergy Verified 09/29/24 08:28 Allergies*) Home Medications ?Medication ?Instructions ?Recorded ?Confirmed ?Last Taken ?Type ferrous gluconate 324 mg (38 mg 1 tab PO QAM 03/04/22 11/03/24 08/03/24 History iron) tablet acetaminophen 500 mg tablet 1,000 mg PO TID PRN Fever Or Pain 08/04/24 11/03/24 08/03/24 History tamsulosin 0.4 mg capsule 0.4 mg PO DAILY 11/03/24 11/03/24 Unknown History Assessment and Plan Final Anesthetic Review NPO: Yes ASA Class: III Final Preanesthetic Review: No Changes in Pt Med Stat, Meds/Allgs Chart Reviewed, Consent Obtained/Reviewed and Anes Risks/Benef Reviewed Patient Risk: Intermediate Procedure Risk: Intermediate Anesthetic Plan Anesthetic Plan: GA Disposition: Standard PACU
[2024-11-03 13:32] LABS: Hematocrit 30.3 % (42.0-52.0); Hemoglobin 9.1 g/dl (14.0-18.0); Mean Corpuscular HGB Conc 30.0 g/dl (31.0-36.0); Mean Corpuscular Hemoglobin 28.3 pg (27.0-33.0); Mean Corpuscular Volume 94.1 fL (80.0-98.0); NRBC Abs Auto 0.000 X10*3/uL (0.0-0.012); NRBC Pct Auto 0.0 /100WBC (0.0-0.2); Platelet Count 335 X10*3/uL (160-400); Red Blood Count 3.22 X10*6/uL (4.60-5.80); White Blood Count 5.9 X10*3/uL (4.8-10.8)
[2024-11-03 14:11] LABS: Anion Gap 11 (12-20); Blood Urea Nitrogen 41 mg/dL (9-16); Calcium 9.3 mg/dL (8.4-10.2); Carbon Dioxide 23 mmol/L (22-29); Chloride 110 mmol/L (96-108); Creatinine Clr Calc Pharmacy 30.1; Estimated Glomerular Filt Rate 31; Potassium 5.4 mmol/L (3.3-5.1); Sodium 139 mmol/L (135-145)
[2024-11-17] VITALS (11 sets, daily range): BP systolic 111–138; BP diastolic 45–81; PULSE 67–96; RESP 12–16; TEMP 36.1–36.6; O2SAT 94–98; BMI 21.0
--- NOTE | ~2024-11-17 | FL_ITS ---
EXAMINATION: FL GUIDANCE ONLY HISTORY: L3-4 decompression, Right COMPARISON: Correlation is made with plain films of the lumbar spine dated 10/13/2024. TECHNIQUE: Fluoroscopy time: Less than 1 minute. Cumulative Dose: 2.53 mGy. DAP: 0.437 mGym2 Images: 1. FINDINGS: A single fluoroscopic spot film of the lumbar spine in the lateral projection demonstrates a probe directed toward the L4 vertebral body from a posterior approach. FL/FL guidance in OR IMPRESSION: Fluoroscopy during procedure. Please see procedure report for additional information. Electronically signed by: Jose G Dennison MD 11/17/2024 12:19 PM EDT
[2024-11-17] MEDS: Lactated Ringers 1,000 ML 100 ML IVCONT (09:11)
--- NOTE | 2024-11-17 10:12 | MHC.SHP ---
Pre-Procedural Eval Section A - 24 Hr Update-Section A only Date of Service: 11/17/24 Section B - Complete if H&P > 30 days Chief Complaint: Spinal stenosis, lumbar region without neurogenic Details of Present Illness: Right leg pain Allergies: Allergies Allergy/AdvReac Type Severity Reaction Status Date / Time No Known Allergies (No Known Allergy Verified 09/29/24 08:28 Allergies*) Review of Systems Sugical H&P ROS: Negative: Constitution, Cardiovascular, Respiratory, Neurological, Psychiatric, Hem-Onc, Allergic/Immunologic, Gastrointestinal, Genitourinary, Musculoskeletal, Integumentary, Endocrine and Eyes/Ears/Nose/Throat Exam Surgical H&P Exam: Normal: HEENT, Normal: Heart, Normal: Lungs, Normal: Extremities, Normal: Abdomen, Normal: Skin and Normal: Neurological (Wake, alert) Plan Diagnosis/Plan: Unchanged I have reviewed the history and physical and performed a pertinent physical examination on my patient. No changes have occurred unless specified. right L3-4 decompression Time Spent With Patient Time: Total time managing care of this patient today __5__ minutes.
[2024-11-17] MEDS: Albuterol Sulfate (0.083%) 2.5 MG/3 ML VIAL.NEB INHALE (10:14)
--- NOTE | 2024-11-17 10:45 | P.DS_ITS ---
DS: Providers Provider Date of Service: 11/17/24 Date of discharge: 11/17/24 Primary care physician: Jose G Dickerson MD Admitting clinician: Blair Cuellar DS: Diagnosis Discharge Diagnosis (1) Lumbar spinal stenosis: Status: Acute DS: Summary Time Attestation Discharge Coordination Time (in mins): 5 Quality: Safe Use of Opioids Does Pt have an Active Cancer Diagnosis on the Problem List?: No Quality: Stroke Does the patient have a stroke diagnosis?: No Physical Exam Vital Signs: Vital Signs: Last Vital Signs Temp 98 F 11/17/24 09:12 Pulse 88 11/17/24 09:12 Resp 16 11/17/24 09:12 BP 119/69 11/17/24 09:12 Pulse Ox 98 11/17/24 09:12 O2 Del Method Room Air 11/17/24 09:12 BMI result Body Mass Index 21.0 DS: Data Data Completed and Pending Completed studies during hospitalization [Text1]: Procedures Drainage of Scrotum, External Approach (03/04/22) Insertion of Infusion Device into Left Brachial Vein, Percutaneous Approach (0 08/04/24) Discharge Plan Discharge Patient Disposition: Home, Self-Care Referrals: Jose G Dickerson MD [Primary Care Provider, Internal Medicine] - 1 Week Discharge Medications: New oxycodone 5 mg tablet 5 mg PO Q4H PRN (Reason: pain) Qty: 20 0RF Rx Instructions: Partial Fill upon patient request. Continued nitrofurantoin monohyd/m-cryst [Macrobid] 100 mg capsule 100 mg PO BID 14 Days Qty: 28 0RF Rx Instructions: must administer with a meal/food ferrous gluconate 324 mg (38 mg iron) tablet 1 tab PO QAM tamsulosin 0.4 mg capsule 0.4 mg PO DAILY Rx Instructions: only took for 3 days-has stopped as of 10/29/24 acetaminophen 500 mg Tablet 1,000 mg PO TID PRN (Reason: Fever Or Pain) Discharge Orders: Discharge Order (Routine); Ordered 11/17/24 Ordered By: Bogdan Mccarty Diet: Advance to usual diet Activity on Discharge: As tolerated Activity Restrictions/Additional Instructions: After your spinal surgery we ask you to observe the following restrictions/guidelines: Activity: It is normal to feel some discomfort as you increase your activity, but that will improve with time. We ask you avoid heavy lifting or acitivities that cause pain. As a general rule, 8lbs is a safe limit for lifting right after surgery. Walk as much as you feel comfortable but not to exhaustion. You will feel extra tired the first few days after surgery. Stay well hydrated. It is OK to walk up and down stairs You may return to driving when you are off narcotics (such as vicodin, oxycodone, dilaudid, etc), and you are back to normal functional capacity. If you have any concerns please check with office before driving. Return to work is specific to each patient and each surgery, so please speak with your doctor/PA at first follow up. Please bring paperwork such as FMLA at that time if you need it filled out. Medications: For optimum pain control, it is best to start with a combination of 500 mg of Tylenol every 4 hours with 600 mg of Motrin every 8 hours, and use narcotics as needed in between for breakthrough pain. We will give you a short supply of narcotics after surgery (usually one weeks worth). If you need more please call the office but do not use more than prescribed. You will need to give our office 48 hours notice if you need narcotics refilled and we do not fill narcotics on weekends or evenings. If you are on a narcotic, it is a good idea to take a stool softener such as colace or senna to avoid constipation If you take blood thinner such as aspirin, Plavix, Coumadin, Effient, Eliquis etc for conditions such as Afib, DVT, Pulmonary embolus, coronary disease, stents etc please speak with your surgeon about specific details as to when you can resume these medications. You can resume NSAIDs on post op day 1 (eg: Motrin, Naproxen, etc). Follow up: Please call the office, , after surgery to arrange a 3 week follow up for wound check. Wound Care: You may remove your dressing on the first day after surgery. ?You may ?leave open to air. Please do not remove the steri strips underneath. they will fall off on their own in one week. IT IS NORMAL FOR THE WOUND TO OOZE OR BE BLOODY FOR A FEW DAYS AFTER SURGERY. ?IF THIS HAPPENS JUST PLACE NEW DRESSING OVER IT TO AVOID STAINING CLOTHES. You may shower on post op day # 1 We ask that you do not let the water soak the wound. If it does get wet, just towel dry lightly. Please do not scrub your incision or place any type of chemical/ointment on the wound. No tub baths, pools or jacuzzis for one month. If you have any leaking or redness from your wound, or fevers, please call of fice Print Language: Turkmen
--- NOTE | 2024-11-17 13:10 | W.PM.OPN ---
Operative Note Operative Note Date of Service: 11/17/24 Narrative: Preoperative Diagnosis: L3-4 spinal stenosis/lateral recess stenosis/neural foraminal stenosis Operation: Right L3-4 Laminotomy, Partial facetectomy and foraminotomy with use of microscope Consent Informed Consent was obtained for this operation. I have explained the nature, purpose and benefits of the operation. I have discussed the risks and benefit of the operation including possible complications or adverse events with patient/family. Alternative(s) were discussed with the patient with their relative benefits and risks as well as the consequences of not accepting the operation were included in obtaining consent. Surgeon: ROD PLATA MD, PHD Procedure Assisted By: Bogdan Chávez Description of Procedure This patient is suffering from unilateral neurogenic claudication. MRI shows severe L3-4 spinal stenosis coming from right side to to combination of arthritis and possible disc herniation. The patient a previous surgery done in his area in another institution. The patient was offered a re-exploration with decompression. The procedure complications were explained. The patient was consented. The patient was brought to the operating room and endotracheally intubated. The patient was turned in prone position on the Kirk frame. Prep and drape was done followed by timeout. The Physician assistant family teacher provided access. A mid lumbar incision was made followed by release of the paravertebral muscle on the right side to expose the L3-4 laminae and facet joints. An intraoperative x-ray was obtained to confirm the correct level. The microscope was brought in. I took over the procedure. The high-speed drill was used to do a L3 laminotomy until flavum ligament was reached. A #2 Kerrison was used to expand the laminotomy near flush to the pedicles and to include a partial facetectomy. A significant amount of material seen lateral from the L4 nerve root representing scar tissue, ligaments and disc material. This was removed. Then I opened up the flavum ligament cranially and work my way back. I felt a small spondylolisthesis that was seen on the x-ray. I went under the thecal sac and removed material from there. I was able to pass a long nerve hook lateral from the L4 nerve root and all the nervous structures were pulsating as a sign of adequate decompression. The microscope was removed. Hemostasis was done. The physician assistant family teacher close the incision in 2 layers. Steri-Strips were used to approximate incision. An OpSite with Tegaderm was used to cover the incision. All sponge needle counts were correct. Patient was extubated and transported in stable is to recovery room. Anesthesia: General Estimated Blood Loss (ml): 20 Complications: None Duration of Surgery: Under 60 Minutes Postoperative Plan: Discharge to home
== END 2024-11-17 14:33 | disposition home or self-care (01) ==
PROVIDERS: Nurse Practitioner; PCP Internal Medicine Medical Oncology; Visit Provider Neurological Surgery
PROC: (CPT 63047; principal; 2024-11-17 11:00)
DX: M48.062 Spinal stenosis, lumbar region with neurogenic claudication (principal); M51.26 Other intervertebral disc displacement, lumbar region; M47.816 Spondylosis without myelopathy or radiculopathy, lumbar region; G89.4 Chronic pain syndrome; C61 Malignant neoplasm of prostate; C79.51 Secondary malignant neoplasm of bone; Z92.3 Personal history of irradiation; I13.0 Hypertensive heart and chronic kidney disease with heart failure and stage 1 through stage 4 chronic kidney disease, or unspecified chronic kidney disease; F17.210 Nicotine dependence, cigarettes, uncomplicated; N18.30 Chronic kidney disease, stage 3 unspecified; N39.0 Urinary tract infection, site not specified; D50.9 Iron deficiency anemia, unspecified; E78.00 Pure hypercholesterolemia, unspecified; Z79.899 Other long term (current) drug therapy; Z98.890 Other specified postprocedural states
CPT/HCPCS: 63047; 36415; 80048; 85027; J0131; J1100; J2003; J2405; J2704; J3010; J3374

== ENCOUNTER → 2024-11-17 08:36 | Outpatient (BNV) | payer MEDICARE, SELFPAY | PROVIDERS: PCP Internal Medicine Medical Oncology; Visit Provider Physician Assistant | DX: M48.062 Spinal stenosis, lumbar region with neurogenic claudication (principal) | CPT/HCPCS: 63047; 99499 ==

== ENCOUNTER 2024-11-29 09:46 | Outpatient (AMB) | payer MEDICARE, SELFPAY ==
--- NOTE | 2024-11-29 09:53 | AM.OFFVISNUR ---
Intake Visit Reasons: [facility]/UA Allergies No Known Allergies (No Known Allergies*) Allergy (Verified 09/29/24 08:28) Office Meds Gilda (6 month) 45 mg (6 month) subcutaneous syringe Performing Provider: Ruddy Mace MD [facility] Administered by: Hector Ratliff LPN on 11/29/24 09:53 Dose Route Admin Location Dispensed Lot Number Expiration Date [facility] Rooter Operator 45 mg subcut left arm 45 mg [id number] 01/02/26 28712-936-05 [employer] Total Dispensed Waste 45 mg 0 % Assessment & Plan Assessment & Plan Orders: Orders AMB Leuprolide Injection - Practice Supplied Today C61 - Malignant neoplasm of prostate Coding
--- OUTSIDE RECORDS SUMMARY | 2024-11-29 10:21 | XMS_ITS | Clinical Summary ---
Author Organization [facility] Address [address] [place] [address] Phone Care Team Providers Care Mri Assistant Name Role Phone Jose G Dickerson MD Primary Care Provider [phone] Social History Tobacco Use Types Packs/Day Years Used Date Smoking Tobacco: Never Assessed Education Answer Date Recorded Are you interested in more education? Not on dez e 08/17/2024 Are you concerned about learning? Not on file 08/17/2024 No 08/17/2024 No 08/17/2024 Digital Access Answer Date Recorded No 08/17/2024 No 08/17/2024 Reliable internet access at home? Not on file 08/17/2024 Device with a working camera? Not on file Sex and Gender Information Value Date Recorded Sex Assigned at Not on file Legal Sex Male 11:54 AM EDT Gender Identity Not on file Sexual Orientation Not on file Plan of Treatment Not on file Medical Devices Not on file Insurance MEDICARE PART A & B MEDICARE PART A & B MEDICARE PART A & B MEDICARE PART A & B MEDICARE PART A & B Member Subscriber Plan / Payer (Ef fective 2014-Present) Name:Keshav Ramso Member ID:[id number] Relation to Subscriber:Self Name:RachelKeshav Subscriber ID:[id number] Payer ID:[id number] Group ID:Not on file Type:Medicare Address: [employer] [id number] MEDICARE PART A & B Care Teams Mri Assistant Relationship Specialty Start Date End Date Jose G Dickerson MD [facility] [place] [address] PCP - General Medical Oncology 08/19/24 Additional Source Comments The information contained in this document represents components of the legal health record. It is not the complete legal health record.[facility]
--- OUTSIDE RECORDS SUMMARY | 2024-11-29 10:21 | XMS_ITS | Encounter Summary ---
Author Organization [facility] Address [address] [facility] [address] [place] [address] Phone Care Team Providers Care Manager Advertising Name Role Phone Jose G Dickerson MD Primary Care Provider [phone] Reason for Visit * Reason Comments Med Refill Encounter Details Date Type Department Care Team (Late st Contact Info) Description 02/11/2023 Refill [facility] [address] [place] [id number] Jon Ma MD Social History Tobacco Use [...] on filedocumented in this encounter Care Teams Manager Advertising Relationship Specialty Start Date End Date Jose G Dickerson MD [address] [place] [address] [phone] [facility] - [facility] Medical Oncology 04/05/21 documented as of this encounter
== END 2024-11-29 10:32 | disposition home or self-care (01) ==
LOC: HO.HUSH 09:46
PROVIDERS: PCP Internal Medicine Medical Oncology; Visit Provider Urology
DX: C61 Malignant neoplasm of prostate (principal)

== ENCOUNTER → 2024-11-29 09:46 | Outpatient (BNVA) | payer MEDICARE, SELFPAY | PROVIDERS: PCP Internal Medicine Medical Oncology; Visit Provider Urology | DX: Z51.11 Encounter for antineoplastic chemotherapy (principal); C61 Malignant neoplasm of prostate; Z79.818 Long term (current) use of other agents affecting estrogen receptors and estrogen levels | CPT/HCPCS: 96402; J9217 ==

== ENCOUNTER 2024-12-05 11:56 | Outpatient (REF) | payer MEDICARE, SELFPAY ==
[2024-12-05 12:25] LABS: Appearance Urine Turbid; Glucose Urine UA Negative (Negative); PH 6.0 (5.0-9.0); Specific Gravity - Urine 1.015 (1.005-1.025); UMIC TRIGGER UA YES
--- OUTSIDE RECORDS SUMMARY | 2024-12-05 12:41 | XMS_ITS | Clinical Summary ---
Author Organization [facility] Address [address] [place] [address] Phone Care Team Providers Care Chairman Ceo Name Role Phone Jose G Dickerson MD Primary Care Provider [phone] Social History Tobacco Use Types Packs/Day Years [...] Plan / Payer (Ef fective 2014-Present) Name:Keshav Ramos Member ID:[id number] Relation to Subscriber:Self Name:RachelKeshav Subscriber ID:[id number] Payer ID:[id number] Group ID:Not on file Type:Medicare Address: [employer] [address] MEDICARE PART A & B Care Teams Chairman Ceo Relationship Specialty Start Date End Date Jose G Dickerson MD [facility] [place] [address] PCP - General Medical Oncology 08/19/24 Additional Source Comments The information contained in this document represents components of the legal health record. It is not the complete legal health record.[facility]
--- OUTSIDE RECORDS SUMMARY | 2024-12-05 12:41 | XMS_ITS | Encounter Summary ---
Author Organization [facility] Address [address] [place] [address] Phone Care Team Providers Care Conventions Reservationist Name Role Phone Jose G Dickerson MD Primary Care Provider [phone] Reason for Visit * Reason Comments Med Refill Encounter Details Date Type Department Care Team (Late st Contact Info) Description 02/11/2023 Refill [facility] [address] [place] [phone] Jon Ma MD Social History Tobacco Use [...] on filedocumented in this encounter Care Teams Conventions Reservationist Relationship Specialty Start Date End Date Jose G Dickerson MD [address] [place] [address] [address] [facility] [place] [facility] - General Medical Oncology 04/05/21 documented as of this encounter
== END 2024-12-05 11:57 | disposition home or self-care (01) ==
LOC: HO.LNP 11:56
PROVIDERS: Visit Provider Urology
DX: R39.15 Urgency of urination (principal); R35.1 Nocturia
CPT/HCPCS: 81001; 87086; 87088; 87186

== ENCOUNTER 2024-12-07 12:46 | Outpatient (AMB) | payer MEDICARE, SELFPAY ==
--- NOTE | 2024-12-07 12:50 | A.SPINEOV_ITS ---
Intake Visit Reasons: 1st post op Intake Note: Mr. Ramos is here today for his 1st post-op visit. Allergies No Known Allergies (No Known Allergies*) Allergy (Verified 09/29/24 08:28) Assessment & Plan Assessment & Plan (1) Status post lumbar spine surgery for decompression of spinal cord: Code(s): Z98.890 - Other specified postprocedural states Category: Surgical Plan Operation: Right L3-4 Laminotomy, Partial facetectomy and foraminotomy Keshav is a pleasant 74-year-old male who comes in today for his 1st postoperative visit after having L3-4 lumbar decompression completed on 11/17/24. He reports that since his surgery his pain has largely remained the same throughout the day. He will be notable improvement that he has had, is that he is essentially pain-free when he 1st wakes up in the morning. Unfortunately after moving around and ambulating for a while he started to experience the same pain that he had prior to surgery. He asked several questions regarding the postoperative healing course, all of which I answered to the best of my ability. No new neurological deficits. The patient ambulates well and rises from seated position without difficulty. The patient's incision site is clean, dry, with no drainage. I would like to follow up with Keshav again in 6 weeks for his 2nd postop visit. Santy Cuellar MD,PhD [facility] Coding Level of Care Code Global (15924) Diagnoses Status post lumbar spine surgery for decompression of spinal cord Z98.890
--- OUTSIDE RECORDS SUMMARY | 2024-12-07 13:18 | XMS_ITS | Encounter Summary ---
Author Organization [facility] Address [address] [place] [address] Phone Care Team Providers Care Precise Winder Name Role Phone Jose G Dickerson MD Primary Care Provider [phone] Reason for Visit * Reason Comments Med Refill Encounter Details Date Type Department Care Team (Late st Contact Info) Description 02/11/2023 [facility]ill [facility] [address] [place] [phone] Jon Ma MD Social History Tobacco Use [...] on filedocumented in this encounter Care Teams Precise Winder Relationship Specialty Start Date End Date Jose G Dickerson MD [address] [place] [address] [address] [facility] [place] P[facility] - General Medical Oncology 04/05/21 documented as of this encounter
--- OUTSIDE RECORDS SUMMARY | 2024-12-07 13:18 | XMS_ITS | Clinical Summary ---
Author Organization [facility] Address [address] [place] [address] Phone Care Team Providers Care Milk Processing Worker Name Role Phone Jose G Dickerson MD Primary Care Provider [phone] Social History Tobacco Use Types Packs/Day Years [...] Payer (Ef fective 2014-Present) Name:Keshav Ramos Member ID:[id number] Relation to Subscriber:Self Name:RachelKeshav Subscriber ID:[id number] Payer ID:[id number] Group ID:Not on file Type:Medicare Address: [employer] [address] MEDICARE PART A & B Care Teams Milk Processing Worker Relationship Specialty Start Date End Date Jose G Dickerson MD [facility] [place] [address] PCP - General Medical Oncology 08/19/24 Additional Source Comments The information contained in this document represents components of the legal health record. It is not the complete legal health record.[facility]
== END 2024-12-07 13:10 | disposition home or self-care (01) ==
LOC: HO.HNS 12:46
PROVIDERS: PCP Internal Medicine Medical Oncology; Visit Provider Physician Assistant
DX: Z98.890 Other specified postprocedural states (principal)
CPT/HCPCS: 99024

== ENCOUNTER → 2024-12-07 12:46 | Outpatient (BNVA) | payer MEDICARE, SELFPAY | PROVIDERS: PCP Internal Medicine Medical Oncology; Visit Provider Physician Assistant | DX: Z47.89 Encounter for other orthopedic aftercare (principal); Z98.890 Other specified postprocedural states | CPT/HCPCS: 99212 ==

== ENCOUNTER 2025-01-18 12:05 | Outpatient (REF) | payer MEDICARE, SELFPAY ==
--- OUTSIDE RECORDS SUMMARY | 2024-12-12 10:00 | XMS_ITS ---
Author Organization Jose G Dickerson III, MD Address [address] [place] [address] Care Team Providers Care Security Coordinator Name Role Phone Jose G Dickerson Primary Care Provider REASON FOR VISIT ? on meds that Dr Mace gave him Social History Sex Assigned At : Social History Observation Description Sex Assigned At Male Encounters Encounter Location Date Provider Diagnosis Jose G Dickerson III, MD [address] [place] [address] [place] [address] 12/12/2024 Jose G Dickerson Plan Of Treatment Next Appt Details Provider Name:Jose G Dickerson, 02/15/2025 10:15:00 AM, [address] [place] [address] [place], [address], Provider Name:Jose G Dickerson, 03/15/2025 09:45:00 AM, [address] [place] [address] [place], [address], Provider Name:Jose G Dickerson, 04/12/2025 10:00:00 AM, [address] [place] [address] [place], [address], Provider Name:Jose G Dickerson, 04/19/2025 02:00:00 PM, [address] [place] [address] [place], [address], Progress Notes * MACI RAMOS PDOB:1949 (74 yo M)Acc No.[id number]:12/12/2024 Patient: MACI COLINDRES :1950 A ge:74 Y S ex:Male Address:[address] [place] [address] [place], [address] * true * Date: Generated for Kati aguilera/Jovana/Liban on: 0 01/18/2025 03:35 PM EDT
--- OUTSIDE RECORDS SUMMARY | 2025-01-06 09:03 | XMS_ITS ---
Author Organization Jose G Dickerson III, MD Address [address] [place] [address] [place] [address] Care Team Providers Care Young Adult Librarian Name Role Phone Jose G Dickerson Primary Care Provider REASON FOR VISIT UTI [...] Diagnosis Jose G Dickerson III, MD [address] [place] [address] [place] [address] 01/06/2025 Jose G Dickerson Plan Of Treatment Next Appt Details Provider Name:Jose G Dickerson, 02/15/2025 10:15:00 AM, [address] [place] [address] [place], [address], Provider Name:Jose G Dickerson, 03/15/2025 09:45:00 AM, [address] [place] [address] [place], [address], Provider Name:Jose G Dickerson, 04/12/2025 10:00:00 AM, [address] [place] [address] [place], [address], Provider Name:Jose G Dickerson, 04/19/2025 02:00:00 PM, [address] [place] [address] [place], [address], Progress Notes * MACI RAMOS PDOB:1949 (74 yo M)Acc No.[id number]:01/06/2025 Patient: MACI COLINDRES :1950 A ge:74 Y S ex:Male Address:[address] [place] [address], [phone] Subjective: * Chief Complaints: * U TI [...]
--- OUTSIDE RECORDS SUMMARY | 2025-01-06 09:29 | XMS_ITS ---
Author Organization Jose G Dickerson III, MD Address [address] [facility] [place] [address] Care Team Providers Care Honey Liquefier Name Role Phone Jose G Dickerson Primary Care Provider [phone] Medications Medication SIG (Take, Route, Frequency, Duration) Notes Start Date End Date Status Ciprofloxacin HCl 500 MG 1 tablet Orally every 12 hrs for 7 days 01/06/2025 01/13/2025 Active Social History Sex Assigned At : Social History Observation Description Sex Assigned At Male Encounters Encounter Location Date Provider Diagnosis Jose G Dickerson III, MD [address] [place] [address] [place] [address] 01/06/2025 Jose G Dickerson Plan Of Treatment Medication Medication Name Sig Start Date Stop Date Notes Ciprofloxacin HCl 500 MG 1 tablet Orally every 12 hrs for 7 days 01/06/2025 01/13/2025 Next Appt Details Provider Name:Jose G Dickerson, 02/15/2025 10:15:00 AM, [address] [place] [address] [place], [address], Provider Name:Jose G Dickerson, 03/15/2025 09:45:00 AM, [address] [place] [address] [place], [address], Provider Name:Jose G Dickerson, 04/12/2025 10:00:00 AM, [address] [place] [address] [place], [address], Provider Name:Jose G Dickerson, 04/19/2025 02:00:00 PM, [address] [place] [address] [place], [address], Progress Notes * MACI RAMOS PDOB:1949 (74 yo M)Acc No.[id number]:01/06/2025 Patient: Alejandro ROXYAG MACI Pacheco :1950 A ge:74 Y S ex:Male Address:[address] [place] [address] [place], [address] * Refills Start Ciprofloxacin HCl Tablet, 500 MG, Orally, 14 Tablet, 1 tablet, every 12 hrs, 7 days, Refills=0 * true * Date: Generated for Kati aguilera/Jovana/Cortneyitting on: 0 01/18/2025 03:36 PM EDT
--- OUTSIDE RECORDS SUMMARY | 2025-01-18 15:35 | XMS_ITS | Patient Health Record ---
Author Organization Jose G Dickerson III, MD Address [address] [place] [address] [place] [address] Care Team Providers Care Lithographic Photographer Name Role Phone Jose G Dickerson Primary Care Provider Allergies Allergen (clinical drug ingredient) Drug/Non Drug Allergy documented on EMR Reaction Allergy Type Onset Date Status No Known Drug Allergy Unknown Drug Allergy Active Results Component Value Reference Range Notes NM bone scan whole body Reviewed date:03/23/2024 09:17:18 AM Interpretation: Performing Lab: Notes/Report: [address] [address] Nuclear Medicine Report Signed Patient: Maci Conley MR#: [id number] : 1950 Acct:[id number] Age/Sex: 73 / M ADM Date: 02/24/24 Loc: RACHID Attending Dr: David Montana MD Ordering Physician: David Montana MD Date of Service: 02/24/24 Procedure(s): NM bone scan whole body Accession Number(s): [id number] cc: Jose G Dickerson MD; David Montana [...] by: Dusty Thompson MD 03/16/2024 12:32 PM [facility] Dictated By: Dusty Thompson MD Signed By: <Electronically signed by Dusty Thompson MD in OV> 03/16/24 1232 DD/ 1042 TD/TT: 02/24/24 1525 Viscose Cellar Worker: SANJAY [address] [address] Nuclear Medicine Report Signed Patient: Jose D Conley MR#: [id number] : 1950 Acct:[id number] Age/Sex: 73 / M ADM Date: 02/24/24 Loc: RACHID Attending Dr: Laura Montana MD Ordering Physician: David Montana MD Date of Service: 02/24/24 Procedure(s): NM bon e scan whole body Accession Number(s): [id number] cc: Jose G Dickerson MD; David Montana MD EXAMINATION: NM BONE SCAN OF THE WHOLE BODY CLINICAL INFORMATION: A 73-year-old male w ith prostate cancer and bone max. Right lower back pain. COMPARISON: Most recent prior wh ole body bone scan done on 04/14/2022. [...] 03/16/24 1232 DD/ 1042 TD/TT: 02/24/24 1525 Viscose Cellar Worker: SANJAY Complete Blood Count Auto Di ff Reviewed date:03/23/2024 09:17:17 AM Interpretation: Performing Lab:[facility], [address] [place] [address] Notes/Report: White Blood Count 6.8 4.8-10.8 X10*3/uL [...] Panel Reviewed date:03/23/2024 09:17:18 AM Interpretation: Performing Lab:[address] [address] Notes/Report: Sodium 143 135-145 mmol/L Potassium 5.2 [...] Ferritin Reviewed date:03/23/2024 09:17:18 AM Interpretation: Performing Lab:[address] [address] Notes/Report: Ferritin 15 20-250 ng/mL Prostate Specific Antigen Reviewed date:03/23/2024 09:17:18 AM Interpretation: Performing Lab:[address] [address] Notes/Report: Prostate Specific Antigen 0.13 <0.05-4.0 ng/mL PSA methodology: Dominguez Alinity i Chemiluminescent Microparticle Immunoassay (CMIA) Vitamin B12 Reviewed date:03/23/2024 09:17:18 AM Interpretation: Performing Lab:[place] [address], [place] [address] Notes/Report: Vitamin B12 665 200-900 pg/mL NORMAL 200-900 PG/ML INDETERMINATE 160-199 PG/ML DEFICIENT < 160 PG/ML XR mandible min 4V Reviewed date:04/24/2024 08:39:55 PM Interpretation: Performing Lab: Notes/Report: [address] [address] XRay Report Signed Patient: Maci Conley MR#: [id number] : 1950 Acct:[id number] Age/Sex: 74 / M ADM Date: 04/16/24 Loc: SEVEN Attending Dr: Jose G Dickerson MD Ordering Physician: Jose G Dickerson MD Date of Service: 04/16/24 Procedure(s): XR mandible min 4V Accession Number(s): [id number] cc: Jose G Dickerson MD EXAMINATION: XR [...] by: Davion Upton MD 04/18/2024 11:29 AM [facility] Dictated By: Davion Upton MD Signed By: <Electronically signed by Davion Upton MD in OV> 04/18/24 1129 DD/ TD/TT: 04/16/24 0955 Viscose Cellar Worker: CATHY [address] [address] XRay Report Signed Patient: Jose D Conley MR#: [id number] : 1950 Acct:[id number] Age/Sex: 74 / M ADM Date: 04/16/24 Loc: SEVEN Attending Dr: Jose G Dickerson MD Ordering Physician: Jose G Dickerson MD Date of Service: 04/16/24 Procedure(s): XR man dible min 4V Accession Number(s): [id number] cc: Jose G Dickerson MD EXAMINATION: XR [...] by: Davion Upton MD 04/18/2024 11:29 AM [facility] Dictated By: Davion Upton MD Signed By: <Electronically signed by Davion Upton MD in OV> 04/18/24 1129 DD/ TD/TT: 04/16/24 0955 Viscose Cellar Worker: CATHY Complete Blood Count Auto Di ff Reviewed date:07/01/2024 06:26:39 AM Interpretation: Performing Lab:[facility], [address] [place] [address] Notes/Report: White Blood Count 7.1 4.8-10.8 X10*3/uL [...] Panel Reviewed date:07/01/2024 06:26:39 AM Interpretation: Performing Lab:[facility], [address] [place] [address] Notes/Report: Sodium 142 135-145 mmol/L Potassium 5.1 [...] Ferritin Reviewed date:07/01/2024 06:26:39 AM Interpretation: Performing Lab:[facility], [address] [place] [address] Notes/Report: Ferritin 32 20-250 ng/mL Prostate Specific Antigen Reviewed date:07/01/2024 06:26:39 AM Interpretation: Performing Lab:[facility], [address] [place] [address] Notes/Report: Prostate Specific Antigen 0.12 <0.05-4.0 ng/mL PSA methodology: Dominguez Alinity i Chemiluminescent Microparticle Immunoassay (CMIA) Vitamin B12 Reviewed date:07/01/2024 06:26:39 AM Interpretation: Performing Lab:[facility], [address] [place] [address] Notes/Report: Vitamin B12 797 200-900 pg/mL NORMAL 200-900 PG/ML INDETERMINATE 160-199 PG/ML DEFICIENT < 160 PG/ML Gram stain Reviewed date:07/11/2024 06:13:00 AM Interpretation: Performing Lab:[facility], [address] [place] [phone] Notes/Report: Gram stain Gram stain results: Gram stain 2+ polys Gram stain 1+ Gram-positive cocci Routine Culture Reviewed date:07/11/2024 06:13:00 AM Interpretation: Performing Lab:[facility], [address] [place] [phone] Notes/Report: Routine Culture Report - external Routine Culture 1+ Mixed skin zander US abdominal aortic aneurysm Reviewed date:08/05/2024 03:27:00 PM Interpretation: Performing Lab: Notes/Report: [address] [address] Ultrasound Report Signed Patient: Maci Conley MR#: [id number] : 1950 Acct:[id number] Age/Sex: 74 / M ADM Date: 07/19/24 Loc: HO. Attending Dr: Ricky Rendon MD Ordering Physician: Ricky Rendon MD Date of Service: 07/19/24 Procedure(s): US abdominal aortic aneurysm Accession Number(s): [id number] cc: Jose G Dickerson MD; Ricky Rendon [...] Hugo Ralph MD 07/20/2024 10:40 AM EDT RP Dictated By: Hugo Callejas MD Signed By: <Electronically signed by Huog Haider MD in OV> 07/21/24 1217 DD/ 1303 TD/TT: 07/19/24 1406 Viscose Cellar Worker: [place] [address] Ultrasound Report Signed Patient: Jose D Conley MR#: [id number] : 1950 Acct:[id number] Age/Sex: 74 / M ADM Date: 07/19/24 Loc: . Attending Dr: Ricky Rendon MD Ordering Physician: Ricky Rendon MD Date of Service: 07/19/24 Procedure(s): US abdominal aortic aneurysm Accession Number(s): [id number] cc: Jose G Dickerson MD; Ricky Rendon [...] Hugo Ralph MD 07/20/2024 10:40 AM EDT RP Dictated By: Hugo Huston MD Signed By: <Electronically signed by Hugo Haider MD in OV> 07/21/24 1217 DD/ 1303 TD/TT: 07/19/24 1406 Viscose Cellar Worker: US arterial duplex BI w/ RAUL Reviewed date:08/05/2024 03:27:00 PM Interpretation: Performing Lab: Notes/Report: [address] [address] Ultrasound Report Signed Patient: Maci Conley MR#: [id number] : 1950 Acct:[id number] Age/Sex: 74 / M ADM Date: 07/19/24 Loc: HO.US Attending Dr: Ricky Rendon MD Ordering Physician: Ricky Rendon MD Date of Service: 07/19/24 Procedure(s): US arterial duplex BI w/ RAUL Accession Number(s): [id number] cc: Jose G Dickerson MD; Ricky Rendon [...] Hugo Ralph MD 07/20/2024 10:40 AM EDT RP Dictated By: Hugo Callejas MD Signed By: <Electronically signed by Hugo Haider MD in OV> 07/21/24 1217 DD/ 1303 TD/TT: 07/19/24 1406 Viscose Cellar Worker: [place] [address] Ultrasound Report Signed Patient: Jose D Conley MR#: [id number] : 1950 Acct:[id number] Age/Sex: 74 / M ADM Date: 07/19/24 Loc: . Attending Dr: Ricky Rendon MD Ordering Physician: Ricky Rendon MD Date of Service: 07/19/24 Procedure(s): US art erial duplex BI w/ RAUL Accession Number(s): [id number] cc: Jose G Dickerson MD; Ricky Rendon [...] 16 cm/s. External: 291 cm/s. U S/US arterial duplex BI w/ RAUL IMPRESSION: Right [...] Hugo Ralph MD 07/20/2024 10:40 AM EDT RP Dictated By: Hugo Huston MD Signed By: <Electronically signed by Hugo Haider MD in OV> 07/21/24 1217 DD/ 1303 TD/TT: 07/19/24 1406 Viscose Cellar Worker: Urine Culture Reviewed date:08/11/2024 08:13:59 PM Interpretation: Performing Lab:[facility], [address] [place] [phone] Notes/Report: O:ESCCOL Escherichia coli Urine Culture ESBL [...] date:08/05/2024 03:27:00 PM Interpretation: Performing Lab: Notes/Report: [address] [address] [address] Scan Report Signed Patient: Maci Conley MR#: [id number] : 1950 Acct:[id number] Age/Sex: 74 / M ADM Date: 08/04/24 Loc: HO.ED Attending Dr: Ordering Physician: Bettie Suarez DO Date of Service: 08/04/24 Procedure(s): CT abdomen pelvis wo IV con Accession Number(s): [id number] cc: Jose G Dickerson MD; Bettie Suarez DO Report Number: [id number]: Total DLP = 411.00 mGy-cm EXAMINATION: CT [...] 08/04/24 1315 DD/ 1242 TD/TT: 08/04/24 1242 Viscose Cellar Worker: [place] [address] [address] Scan Report Signed Patient: Jose D Conley MR#: [id number] : 1950 Acct:[id number] Age/Sex: 74 / M ADM Date: 08/04/24 Loc: HO.ED Attending Dr: Ordering Physician: Bettie Suarez DO Date of Service: 08/04/24 Procedure(s): CT abd omen pelvis wo IV con Accession Number(s): [id number] cc: Jose G Dickerson MD; Bettie Suarez [...] 08/04/24 1315 DD/ 1242 TD/TT: 08/04/24 1242 Viscose Cellar Worker: MR thoracic spine wo/w con Reviewed date:08/05/2024 03:27:00 PM Interpretation: Performing Lab: Notes/Report: [address] [address] Magnetic Resonance Report Signed Patient: aMci Conley MR#: [id number] : 1950 Acct:[id number] Age/Sex: 74 / M ADM Date: 08/04/24 [facility]: Violetta Tinsley MD Ordering Physician: Nathan Gastelum Date of Service: 08/04/24 Procedure(s): MR thoracic spine wo/w con Accession Number(s): [id number] cc: Nathan Gastelum; Jose G Dickerson MD [...] in OV> 08/04/241818 DD/ 17 TD/TT: 08/04/241817 Viscose Cellar Worker: [address] [address] Magnetic Resonance Report Signed Patient: Jose D Conley MR#: [id number] : 1950 Acct:[id number] Age/Sex: 74 / M ADM Date: 08/04/24 [facility]: Violetta Tinsley MD Ordering Physician: Nathan Gastelum Date of Service: 08/04/24 Procedure(s): MR shaver spine wo/w con Accession Number(s): [id number] cc: Nathan Gastelum; Jose G Dickerson MD [...] in OV> 08/04/241818 DD/ 17 TD/TT: 08/04/241817 Viscose Cellar Worker: XR chest 1V Reviewed date:08/05/2024 03:27:00 PM Interpretation: Performing Lab: Notes/Report: [address] [address] XRay Report Signed Patient: Maci Conley MR#: [id number] : 1950 Acct:[id number] Age/Sex: 74 / M ADM Date: 08/04/24 Loc: HO.ED Attending Dr: Ordering Physician: Bettie Suarez DO Date of Service: 08/04/24 Procedure(s): XR chest 1V Accession Number(s): [id number] cc: Jose G Dickerson MD; Bettie Suarez [...] 08/04/24 1212 DD/ 1153 TD/TT: 08/04/24 1159 Viscose Cellar Worker: [place] [address] XRay Report Signed Patient: Jose D Conley MR#: [id number] : 1950 Acct:[id number] Age/Sex: 74 / M ADM Date: 08/04/24 Loc: .ED Attending Dr: Ordering Physician: Bettie Suarez DO Date of Service: 08/04/24 Procedure(s): XR chest 1V Accession Number(s): [id number] cc: Jose G Dickerson MD; Bettie Suarez [...] 08/04/24 1212 DD/ 1153 TD/TT: 08/04/24 1159 Viscose Cellar Worker: Complete Blood Count no Diff Reviewed date:08/05/2024 03:27:00 PM Interpretation: Performing Lab:[facility], [address] [place] [phone] Notes/Report: White Blood Count 9.6 4.8-10.8 X10*3/uL [...] Panel Reviewed date:08/05/2024 03:27:00 PM Interpretation: Performing Lab:[facility], [address] [place] [address] Notes/Report: Sodium 140 135-145 mmol/L Potassium 4.3 [...] Antigen Reviewed date:08/05/2024 03:27:00 PM Interpretation: Performing Lab:[address] [address] Notes/Report: Prostate Specific Antigen 0.30 <0.05-4.0 ng/mL PSA methodology: Dominguez Alinity i Chemiluminescent Microparticle Immunoassay (CMIA) SARS-CoV2/FLU/RSV Reviewed date:08/05/2024 03:27:00 PM Interpretation: Performing Lab:[address] [address] Notes/Report: Influenza A PCR NEGATIVE Negative Influenza [...] by authorized laboratories. Testing performed on the CREAT GeneXpert utilizing real-time RT-PCR. All SARS CoV2 and positive influenza A/B results are reported to [facility]. CT head/brain wo con Reviewed date:08/07/2024 07:20:28 AM Interpretation: Performing Lab: Notes/Report: [address] [address] [address] Scan Report Signed Patient: Maci Conley MR#: [id number] : 1950 Acct:[id number] Age/Sex: 74 / M ADM Date: 08/04/24 Loc: HO.S3 357-[address]: Bassem Mehta MD Ordering Physician: Bassem Mehta MD Date of Service: 08/05/24 Procedure(s): CT head/brain wo IV con Accession Number(s): [id number] cc: Jose G Dickerson MD; Bassem Mehta MD Report Number: [id number]: Total DLP = 718.00 mGy-cm CLINICAL HISTORY: [...] in OV> 08/05/242055 DD/ 55 TD/TT: 08/05/242055 Viscose Cellar Worker: [place] [address] [address] Scan Report Signed Patient: Jose D Conley MR#: [id number] : 1950 Acct:[id number] Age/Sex: 74 / M ADM Date: 08/04/24 Loc: .S3 357-[address]: Joel Mehta MD Ordering Physician: Bassem Mehta MD Date of Service: 08/05/24 Procedure(s): CT head/brain wo IV con Accession Number(s): [id number] cc: Jose G Dickerson MD; Bassem Mehta [...] in OV> 08/05/242055 DD/ 55 TD/TT: 08/05/242055 Viscose Cellar Worker: XR chest 2V Reviewed date:08/05/2024 03:27:00 PM Interpretation: Performing Lab: Notes/Report: [address] [address] XRay Report Signed Patient: Maci Conley MR#: [id number] : 1950 Acct:[id number] Age/Sex: 74 / M ADM Date: 08/04/24 Loc: .S3 357-[address]: Bassem Mehta MD Ordering Physician: Bassem Mehta MD Date of Service: 08/05/24 Procedure(s): XR chest 2V Accession Number(s): [id number] cc: Jose G Dickerson MD; Bassem Mehta [...] OV> 08/05/24 1436 DD/ 1350 TD/TT: 08/05/24 1353 Viscose Cellar Worker: [address] [address] XRay Report Signed Patient: Jose D Conley MR#: [id number] : 1950 Acct:[id number] Age/Sex: 74 / M ADM Date: 08/04/24 [facility]: Joel Mehta MD Ordering Physician: Bassem Mehta MD Date of Service: 08/05/24 Procedure(s): XR chest 2V Accession Number(s): [id number] cc: Jose G Dickerson MD; Bassem Mehta [...] G Dennison MD 08/05/2024 02:36 PM EDT Dictated By: Jose G Dennison MD Signed By: <Electronically signed by Jose G Dennison MD in OV> 08/05/24 1436 DD/ 1350 TD/TT: 08/05/24 1353 Viscose Cellar Worker: Hold Lav - Possible Hematolo gy Reviewed date:08/07/2024 07:20:28 AM Interpretation: Performing Lab:[address] [address] Notes/Report: Hold Lav - Possible Hematology SEE NOTE Specimen will be held untested for 8 hours. Call Hematology if testing is desired. Basic Metabolic Panel Reviewed date:08/07/2024 07:20:28 AM Interpretation: Performing Lab:[address], [place] [address] Notes/Report: Sodium 140 135-145 mmol/L Potassium 4.0 [...] Procalcitonin Reviewed date:08/07/2024 07:20:28 AM Interpretation: Performing Lab:[facility], [address] [place] [address] Notes/Report: Procalcitonin 14.76 Procalcitonin (PCT) Reference Range: [...] results from different laboratories and methodologies. References: [place] [employer]/Society of Critical Care Medicine Consensus Conference Committee. Definitions for sepsis and organ failure and guidelines for the use of innovative therapies in sepsis. Crit Care Med 1992;20(6):864-874. Precious B, Catina KL, Becky H, et al. Calcitonin precursors are reliable markers of sepsis in a medical intensive care unit. Crit Care Med 2000;363:600-607. Zheng S, Gloria K, Chuy Pantoja, et al. Diagnostic value of procalcitonin, interleukin-6 and interleukin-8 in critically ill patients admitted with suspected sepsis. AM J Respir Crit Care Med 2001;164:396-402. US Food and Drug Administration. 510(k) substantial equivalence determination decision summary for [facility] PCT SHARON. http://www.accessdat a.fda.fov/cdr_docs/ reviews/F401283.pdf. Published May 2004. Accessed October 2016. Creatinine Urine Reviewed date:08/07/2024 07:20:28 AM Interpretation: Performing Lab:[facility], [address] [place] [address] Notes/Report: Creatinine Urine 77.77 Sodium Urine Random Reviewed date:08/07/2024 07:20:28 AM Interpretation: Performing Lab:[facility], [address] [place] [address] Notes/Report: Sodium Urine Random 56.0 Legionella Ag Urine Reviewed date:08/11/2024 08:13:59 PM Interpretation: Performing Lab:[facility], [address] [place] [address] Notes/Report: Legionella Ag Urine Not Detected Not [...] or serogroups. THIS TEST WAS PERFORMED AT: [facility]/[address] [address] KAROL ARNDT MD,PHD MRSA Nasal Screen Reviewed date:08/07/2024 07:20:28 AM Interpretation: Performing Lab:[address] [address] Notes/Report: MRSA Nasal PCR NEGATIVE Negative SA Nasal PCR NEGATIVE Negative MRSA Interpretation SEE NOTE MRSA target DNA not detected; SA target DNA not detected. A MRSA NEGATIVE, SA NEGATIVE test result does not preclude MRSA or SA nasal colonization. Strep Pneumo Ag urine Reviewed date:08/11/2024 08:13:59 PM Interpretation: Performing Lab:[facility], [address] [place] [address] Notes/Report: Strep Pneumo Ag urine Not Detected Not Detected THIS TEST WAS PERFORMED AT: [facility] [address] [place] [address] KAROL ARNDT MD,PHD US renal BI Reviewed date:08/07/2024 07:20:28 AM Interpretation: Performing Lab: Notes/Report: [address] [address] Ultrasound Report Signed Patient: Maci Conley MR#: [id number] : 1950 Acct:[id number] Age/Sex: 74 / M ADM Date: 08/04/24 Loc: HO.S3 357-[address]: Bassem Mehta MD Ordering Physician: Bassem Mehta MD Date of Service: 08/06/24 Procedure(s): US renal BI Accession Number(s): [id number] cc: Jose G Dickerson MD; Bassem Mehta [...] by Julissa Castañeda MD in OV> 08/06/24 1229 DD/ 1228 TD/TT: 08/06/24 1228 Viscose Cellar Worker: [address] [address] Ultrasound Report Signed Patient: Jose D Conley MR#: [id number] : 1950 Acct:[id number] Age/Sex: 74 / M ADM Date: 08/04/24 Loc: .S3 357-[address]: Joel Mehta MD Ordering Physician: Bassem Mehta MD Date of Service: 08/06/24 Procedure(s): US renal BI Accession Number(s): [id number] cc: Jose G Dickerson MD; Bassem Mehta [...] by Julissa Castañeda MD in OV> 08/06/24 1229 DD/ 1228 TD/TT: 08/06/24 1228 Viscose Cellar Worker: Basic Metabolic Panel Reviewed date:08/11/2024 08:13:59 PM Interpretation: Performing Lab:[facility], [address] [place] [phone] Notes/Report: Sodium 142 135-145 mmol/L Potassium 3.8 [...] Peptide Reviewed date:08/07/2024 07:20:28 AM Interpretation: Performing Lab:[facility], [address] [place] [phone] Notes/Report: B Type Natriuretic Peptide 191 <100 pg/mL Albumin Level Reviewed date:08/11/2024 08:13:59 PM Interpretation: Performing Lab:[facility], [address] [place] [address] Notes/Report: Albumin Level 2.6 3.5-5.0 g/dL Hold Lav - Possible Hematolo gy Reviewed date:08/11/2024 08:13:59 PM Interpretation: Performing Lab:[facility], [address] [place] [address] Notes/Report: Hold Lav - Possible Hematology SEE NOTE Specimen will be held untested for 8 hours. Call Hematology if testing is desired. Basic Metabolic Panel Reviewed date:08/11/2024 08:13:59 PM Interpretation: Performing Lab:[facility], [address] [place] [address] Notes/Report: Sodium 142 135-145 mmol/L Potassium 3.9 [...] Procalcitonin Reviewed date:08/11/2024 08:13:59 PM Interpretation: Performing Lab:[facility], [address] [place] [address] Notes/Report: Procalcitonin 3.54 Procalcitonin (PCT) Reference Range: [...] results from different laboratories and methodologies. References: [employer] [employer]/Society of Critical Care Medicine Consensus Conference Committee. Definitions for sepsis and organ failure and guidelines for the use of innovative therapies in sepsis. Crit Care Med 1992;20(6):864-874. Lang B, Dominique KL, Schazuleymaer H, et al. Calcitonin precursors [...] 510(k) substantial equivalence determination decision summary for [facility] PCT SHARON. http://www.accessdat a.fda.fov/cdr_docs/ reviews/N888403.pdf. Published May 2004. Accessed October 2016. MR lumbar spine wo/w con Reviewed date:08/11/2024 08:13:59 PM Interpretation: Performing Lab: Notes/Report: [address] [address] Magnetic Resonance Report Signed Patient: Maci Conley MR#: [id number] : 1950 Acct:[id number] Age/Sex: 74 / M ADM Date: 08/04/24 Loc: .S3 357-[address]: Violetta Tinsley MD Ordering Physician: Bassem Mehta MD Date of Service: 08/08/24 Procedure(s): MR lumbar spine wo/w con Accession Number(s): [id number] cc: Jose G Dickerson MD; Bassem Mehta [...] 08:21 AM EDT RP Dictated By: Hugo Callejas MD Signed By: <Electronically signed by Hugo Haider MD in OV> 08/09/24 0821 DD/ 1440 TD/TT: 08/08/24 1520 Viscose Cellar Worker: [place] [address] Magnetic Resonance Report Signed Patient: Jose D Conley MR#: [id number] : 1950 Acct:[id number] Age/Sex: 74 / M ADM Date: 08/04/24 Loc: .S3 357-[address]: Violetta Tinsley MD Ordering Physician: Bassem Mehta MD Date of Service: 08/08/24 Procedure(s): MR lum bar spine wo/w con Accession Number(s): [id number] cc: Jose G Dickerson MD; Bassem Mehta [...] 08/09/2024 08:21 AM EDT Dictated By: Hugo Huston MD Signed By: <Electronically signed by Hugo Haider MD in OV> 08/09/24 0821 DD/ 1440 TD/TT: 08/08/24 1520 Viscose Cellar Worker: Complete Blood Count Auto Di ff Reviewed date:09/27/2024 01:57:42 PM Interpretation: Performing Lab:[facility], [address] [place] [phone] Notes/Report: White Blood Count 9.7 4.8-10.8 X10*3/uL [...] Panel Reviewed date:09/27/2024 01:57:42 PM Interpretation: Performing Lab:[facility], [address] [place] [phone] Notes/Report: Sodium 141 135-145 mmol/L Potassium 5.3 [...] Antigen Reviewed date:09/27/2024 01:57:42 PM Interpretation: Performing Lab:[facility], [address] [place] [phone] Notes/Report: Prostate Specific Antigen 0.23 <0.05-4.0 ng/mL PSA methodology: Dominguez Alinity i Chemiluminescent Microparticle Immunoassay (CMIA) Testosterone, Total Reviewed date:09/27/2024 01:57:42 PM Interpretation: Performing Lab:[facility], [address] [place] [phone] Notes/Report: Testosterone, Total 2 250-1100 ng/dL Men with clinically significant hypogonadal symptoms and testosterone values repeatedly in the range of the 200-300 ng/dL or less, may benefit from testosterone treatment after adequate risk and benefits counseling. For additional information, please refer to http://education.Broadchoice.com/fa q/ TotalTestosteroneM [email or web address] (This link is being provided for informational/ educational purposes only.) This test was developed and its analytical performance characteristics have been determined by [place]. It has not been cleared or approved by the U.S. Food and Drug Administration. This assay has been validated pursuant to the CLIA regulations and is used for clinical purposes. THIS TEST WAS PERFORMED AT: [facility] [id number] [place] [address] KAROL ARNDT MD,PHD NM lamar perf SPECT rest & str Reviewed date:10/16/2024 07:54:15 AM Interpretation: Performing Lab: Notes/Report: [address] [address] Nuclear Medicine Report Signed Patient: Maci Conley MR#: [id number] : 1950 Acct:[id number] Age/Sex: 74 / M ADM Date: 09/29/24 Loc: [facility] Attending Dr: Jose G Dickerson MD Ordering Physician: Jose G Dickerson MD Date of Service: 09/29/24 Procedure(s): NM lamar perf SPECT rest str Accession Number(s): [id number] cc: Jose G Dickerson MD Lexiscan Myocardial [...] 10/04/24 1113 DD/ 1030 TD/TT: 10/03/24 1355 Viscose Cellar Worker: [place] [address] Nuclear Medicine Report Signed Patient: Jose D Conley MR#: [id number] : 1950 Acct:[id number] Age/Sex: 74 / M ADM Date: 09/29/24 Loc: [facility] Attending Dr: Jose G Dickerson MD Ordering Physician: Jose G Dickerson MD Date of Service: 09/29/24 Procedure(s): NM lamar perf SPECT rest str Accession Number(s): [id number] cc: Jose G Dickerson MD Lexiscan Myocardial perfusion study Indication: Preoperative cardiac evaluation Technique: The patient was brou t in for a Lexiscan perfusion study on 09/29/2024 and was injected 0.4 mg of Lexiscan intravenously. Within a minute of this injection 25 mC i of sestamibi was given intravenously. Images were obtained using the [employer] gamma camera interlaced with the gating device. [...] 10/04/2024 11:13 AM EDT RP Workstatio n: [id number] Dictated By: Marques Patel MD Signed By: <Electronically signed by Marques Patel MD in OV> 10/04/24 1113 DD/ 1030 TD/TT: 10/03/24 1355 Viscose Cellar Worker: XR lumbar spine 2-3V Reviewed date:10/16/2024 07:54:15 AM Interpretation: Performing Lab: Notes/Report: [address] [address] XRay Report Signed Patient: Maci Conley MR#: [id number] : 1950 Acct:[id number] Age/Sex: 74 / M ADM Date: 10/13/24 Loc: [facility]VEN Attending Dr: Blair Plata MD, PhD Ordering Physician: Blair Plata MD, PhD Date of Service: 10/13/24 Procedure(s): XR lumbar spine 2-3V Accession Number(s): [id number] cc: Jose G Dickerson MD; Blair Plata [...] MD in OV> 10/13/2459 DD/ 9 TD/TT: 10/13/2450 Viscose Cellar Worker: [place] [address] XRay Report Signed Patient: Jose D Conley MR#: [id number] : 1950 Acct:[id number] Age/Sex: 74 / M ADM Date: 10/13/24 Loc: HO.XRAY Attending Dr: Susan Plata MD, PhD Ordering Physician: Blair Plata MD, PhD Date of Service: 10/13/24 Procedure(s): XR lum bar spine 2-3V Accession Number(s): [id number] cc: Jose G Dickerson MD; Blair Plata [...] signed by Hugo Haider MD in OV> 10/13/24958 DD/ 9 TD/TT: 10/13/24949 Viscose Cellar Worker: Complete Blood Count no Diff Reviewed date:11/04/2024 06:58:53 PM Interpretation: Performing Lab:[facility], [address] [place] [id number] Notes/Report: White Blood Count 5.9 4.8-10.8 X10*3/uL Red Blood Count 3.22 4.60-5.80 X10*6/uL Hemoglobin 9.1 14.0-18.0 g/dl Hematocrit 30.3 42.0-52.0 % Mean Corpuscular Volume 94.1 80.0-98.0 fL Mean Corpuscular Hemoglobin 28.3 27.0-33.0 pg Mean Corpuscular HGB Conc 30.0 31.0-36.0 g/dl Red Cell Distribution Width 15.8 11.0-16.0 % Platelet Count 335 160-400 X10*3/uL Mean Platelet Volume 9.3 9.4-12.4 fL NRBC Pct Auto 0.0 0.0-0.2 /100WBC NRBC Abs Auto 0.000 0.0-0.012 X10*3/uL Basic Metabolic Panel Reviewed date:11/04/2024 06:58:53 PM Interpretation: Performing Lab:[facility], [address] [place] [id number] Notes/Report: Sodium 139 135-145 mmol/L Potassium 5.4 3.3-5.1 mmol/L Chloride 110 96-108 mmol/L Carbon Dioxide 23 22-29 mmol/L Anion Gap 11 12-20 Blood Urea Nitrogen 41 9-16 mg/dL Creatinine 2.07 0.5-1.4 mg/dL Creatinine Clr Calc Pharmacy 30.1 eGFR (calculated from the MDRD study equation) and eCrCl (calculated from the Cockcroft-Gault equation) are based on different parameters and may not yield comparable results. If eCrCl result is absurd, please check patient's height/weight. Estimated Glomerular Filt Rate 31 Chronic Kidney Disease: Estimated GFR < 60 mL/min/1.73m2 Severe Kidney Disease: Estimated GFR < 15 mL/min/1.73m2 Glucose Random 100 60-115 mg/dL Calcium 9.3 8.4-10.2 mg/dL FL guidance in OR Reviewed date:11/18/2024 11:59:55 AM Interpretation: Performing Lab: Notes/Report: [address] [address] Fluoroscopy Report Signed Patient: Maci Conley MR#: [id number] : 1950 Acct:[id number] Age/Sex: 74 / M ADM Date: 11/17/24 Loc: .[facility] Attending Dr: Blair Plata MD, PhD Ordering Physician: Blair Plata MD, PhD Date of Service: 11/17/24 Procedure(s): FL guidance in OR Accession Number(s): [id number] cc: Jose G Dickerson MD; Blair Plata MD, PhD EXAMINATION: FL GUIDANCE ONLY HISTORY: L3-4 decompression, Right COMPARISON: Correlation is made with plain films of the lumbar spine dated 10/13/2024. TECHNIQUE: Fluoroscopy time: Less than 1 minute. Cumulative Dose: 2.53 mGy. DAP: 0.437 mGym2 Images: 1. FINDINGS: A single fluoroscopic spot film of the lumbar spine in the lateral projection demonstrates a probe directed toward the L4 vertebral body from a posterior approach. FL/FL guidance in OR IMPRESSION: Fluoroscopy during procedure. Please see procedure report for additional information. Electronically signed by: Jose G Dennison MD 11/17/2024 12:19 PM EDT Dictated By: Jose G Dennison MD Signed By: <Electronically signed by Jose G Dennison MD in OV> 11/17/24 1219 DD/ 1100 TD/TT: 11/17/24 1130 Viscose Cellar Worker: [address] [place] [address] Fluoroscopy Report Signed Patient: Jose D Conley MR#: [id number] : 1950 Acct:[id number] Age/Sex: 74 / M ADM Date: 11/17/24 Loc: HO.SSS Attending Dr: Susan Plata MD, PhD Ordering Physician: Blair Plata MD, PhD Date of Service: 11/17/24 Procedure(s): FL ragini wadsworth in OR Accession Number(s): [id number] cc: Jose G Dickerson MD; Blair Plata MD, PhD EXAMINATION: FL GUID ANCE ONLY HISTORY: L3-4 decompression, Right COMPARISON: Correlation is made with plain films of the lumbar spine dated 10/13/2024. TECHNIQUE: Fluoroscopy time: Le ss than 1 minute. Cumulative Dose: 2.5 3 mGy. DAP: 0.437 mGym2 Images: 1. FINDINGS: A single fluoroscopi c spot film of the lumbar spine in the lateral projection demonstra godwin a probe directed toward the L4 vertebral body from a posterior approach. F L/FL guidance in OR IMPRESSION: Fluoroscopy during procedure. Please see procedure report for additional information. Electronically kalyan d by: Jose G Dennison MD 11/17/2024 12:19 PM EDT Dictated By: Jose G Dennison MD Signed By: <Electronically signed by Jose G Dennison MD in OV> 11/17/24 1219 DD/ 1100 TD/TT: 11/17/24 1130 Viscose Cellar Worker: Reason For Referral Reason Evaluate and Treat Blood in Stool Diagnosis 1 Blood in stool (K92. 1) Referral Organization Jose G Dickerson III, MD Referring Provider First Name Jose G Referring Provider Last Name Jayla Referring Provider Speciality Internal M edicine Referred Organization [facility] Referred Provider [facility] er, Gastroenterology Referred Address [address] [place] [address],[place], [place],[id number],[place] Referred Provider Specialty Gastroentero logy General Notes [...] Provider Speciality Internal M edicine Referred Provider BLAIR PLATA Referred Provider [...] 1000 MCG/ML 1 mL Injection 03/31/20 Active Tamsulosin HCl 0.4 MG 1 capsule Orally t e 12/02/2024 Active Ferrous Gluconate 324 (38 Fe) [...] Problem Status W/U Status Risk Notes Problem 745069321 Prostate cancer (C61) Active confirmed His PSA remains low and controlled. He is tolerating his androgen deprivation well. He is treated with Eligard. His testosterone level is 2. His PSA is 0.23. This is consistent with remission of the prostate cancer. He will continue under the care of Dr. Mace. Problem 166815733 B12 deficiency (E53.8) Active confirmed He received a B 12 injection today without difficulty in the left arm. 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 I will continue. We will begin receiving denosumab. Problem 90239587 Essential hypertension (I10) Active confirmed His blood press ure is stable at 126/68 and no change in his regimen was needed today.He was 134/61. Problem 25777788 Tobacco dependence (F17.200) Active confirmed I have discusse d with him all of the long-term consequences of smoking and he is well aware of them. I have offered to refer him to smoking cessation programs at the [facility] and he will consider this. Problem 96216595 Pernicious anemia (D51.0) Active confirmed He received 1 000 mcg of vitamin B12by intramuscular injection in the left armToday without difficulty. Problem 01595272 Iron deficiency anemia, unspecified iron deficiency anemia type (D50.9) Active confirmed His hematocrit is now 30%, which is a drop but he recently had surgery. This value will be followed carefully. Problem 228302879 Stage 3 chronic kidney disease (N18.3) Active confirmed His BUN and creatinine remain elevated. He remains under the care of nephrology this point. He was encouraged to hydrate aggressively. Problem 67683847 Age-related cataract of both eyes, unspecified age-related cataract type (H25.9) Active confirmed He is medically cleared for bilateral cataract extraction with a normal risk of a man his age. There is no contraindication to surgery. Problem 623664855 Macular degeneration of both eyes, unspecified type (H35.30) Active confirmed He will contin ue to receive his bevacizumab injections from his acid adjuster.He has been referred to Dr. Sheriff for additional evaluation of his vision. Problem Peripheral arterial occlusive disease (681837230) Peripheral arterial occlusive disease (I77.9) Active confirmed There is been n o change in his claudication or peripheral arterial disease. He is up-to-date with his visits to the vascular surgeon. No open areas on his lower extremities. Problem Chronic kidney disease stage 3 (disorder) (732780110) Chronic kidney disease, stage 3 unspecified (N18.30) Active confirmed His GFR is 43. His BUN is lately. No change in his regimen as needed. Vital Signs Heart Rate 86 /min 01/18/2025 Temperature 97.0 degrees Fahrenheit 01/18/2025 Respiratory Rate 16 /min 01/18/2025 Blood pressure diastolic 65 mm Hg 01/18/2025 Height 69 in 01/18/2025 Blood pressure systolic 112 mm Hg 01/18/2025 Weight 154 lbs 01/18/2025 BMI 22.74 kg/m2 01/18/2025 Encounters Encounter Location Date Provider Diagnosis Jose G Dickerson III, MD [address] [place] [address] [place] [phone] 01/18/2025 Jose G Dickerson Prostate cancer C61 and UTI symptoms R39.9 Jose G Dickerson III, MD [address] [place] [address] [place] [address] 02/03/2024 Jose G Dickerson Prostate cancer C61 ; Essential hypertension I10 ; Macular degeneration of both eyes, unspecified type H35.30 ; Stage 3 chronic kidney disease N18.3 ; Iron deficiency anemia, unspecified iron deficiency anemia type D50.9 ; 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, initial encounter S24.114A ; Pernicious anemia D51.0 and Tobacco dependence F17.200 Jose G Dickerson III, MD [address] [place] [address] [place] [address] 2024 Jose G Dickerson Essential hypertensi on I10 ; Prostate cancer C61 ; Iron deficiency anemia, unspecified iron deficiency anemia type D50.9 ; Vitamin B12 deficiency E53.8 ; Stage 3 chronic kidney disease N18.3 ; Tobacco dependence F17.200 ; Overweight E66.3 and Peripheral arterial occlusive disease I77.9 Jose G Dickerson III, MD [address] [place] [address] [place] [address] 03/30/2024 Jose G Dickerson Essential hypertensi on I10 ; Prostate cancer C61 ; Stage 3 chronic kidney disease N18.3 ; Tobacco dependence F17.200 ; Iron deficiency anemia, unspecified iron deficiency anemia type D50.9 ; Vitamin B12 deficiency E53.8 ; Macular degeneration of both eyes, unspecified type H35.30 and Peripheral arterial occlusive disease I77.9 Jose G Dickerson III, MD [address] [place] [address] [place] [address] 04/15/2024 Jose G Dickerson Essential hypertensi on [...] deficiency E53.8 Jose G Dickerson III, MD [address] [place] [address] [place] [address] 04/28/2024 Jose G Dickerson Essential hypertensi on I10 ; Prostate cancer C61 ; Stage 3 chronic kidney disease N18.3 ; Tobacco dependence F17.200 ; Iron deficiency anemia, unspecified iron deficiency anemia type D50.9 ; Peripheral arterial occlusive disease I77.9 ; Macular degeneration of both eyes, unspecified type H35.30 and Pernicious anemia D51.0 Jose G Dickerson III, MD [address] [place] [address] [place] [address] 06/08/2024 Jose G Dickerson Essential hypertensi on I10 ; Prostate cancer C61 ; Iron deficiency anemia, unspecified iron deficiency anemia type D50.9 ; Macular degeneration of both eyes, unspecified type H35.30 ; Stage 3 chronic kidney disease N18.3 ; Peripheral arterial occlusive disease I77.9 ; Tobacco dependence F17.200 ; Overweight E66.3 and Pernicious anemia D51.0 Jose G Dickerson III, MD [address] [place] [address] [place] [address] 07/07/2024 Jose G Dickerson Essential hypertensi on [...] anemia D51.0 Jose G Dickerson III, MD [address] [place] [address] [place] [address] 07/12/2024 Jose G Dickerson Essential hypertensi on [...] Furuncle L02.92 Jose G Dickerson III, MD [address] [place] [address] [place] [address] 08/26/2024 Jose G Dickerson Prostate cancer C61 ; Essential hypertension I10 ; Macular degeneration of both eyes, unspecified type H35.30 ; Stage 3 chronic kidney disease N18.3 ; Tobacco dependence F17.200 ; Peripheral arterial occlusive disease I77.9 ; 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, initial encounter S24.114A ; Pernicious anemia D51.0 and Overweight E66.3 Jose G Dickerson III, MD [address] [place] [address] [place] [address] 09/27/2024 Jose G Dickerson Prostate cancer C61 [...] anemia D51.0 Jose G Dickerson III, MD [address] [place] [address] [place] [address] 10/12/2024 Jose G Dickerson Prostate cancer C61 ; Essential hypertension I10 ; Macular degeneration of both eyes, unspecified type H35.30 ; Stage 3 chronic kidney disease N18.3 ; Iron deficiency anemia, unspecified iron deficiency anemia type D50.9 ; Tobacco dependence F17.200 ; Peripheral arterial occlusive disease I77.9 ; 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, initial encounter S24.114A ; Pernicious anemia D51.0 ; Herniated lumbar intervertebral disc M51.26 and Preoperative clearance Z01.818 Jose G Dickerson III, MD [address] [place] [address] [place] [address] 10/26/2024 Jose G Hurtne Prostate cancer C61 ; Essential hypertension I10 ; Macular degeneration of both eyes, unspecified type H35.30 ; Stage 3 chronic kidney disease N18.3 ; Iron deficiency anemia, unspecified iron deficiency anemia type D50.9 ; 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, initial encounter S24.114A ; Peripheral arterial occlusive disease I77.9 ; Tobacco dependence F17.200 ; Pernicious anemia D51.0 and Herniated lumbar intervertebral disc M51.26 Jose G Dickerson III, MD [address] [place] [address] [place] [address] 11/23/2024 Jose G Dickerson Prostate cancer C61 ; Tobacco dependence F17.200 ; Essential hypertension I10 ; Macular degeneration of both eyes, unspecified type H35.30 ; Stage 3 chronic kidney disease N18.3 ; Iron deficiency anemia, unspecified iron deficiency anemia type D50.9 and Herniated lumbar intervertebral disc M51.26 Jose G Dickerson III, MD [address] [place] [address] [place] [address] 12/02/2024 Jose G Hurtne Prostate cancer C61 ; Essential hypertension I10 ; Stage 3 chronic kidney disease N18.3 ; Tobacco dependence F17.200 ; Peripheral arterial occlusive disease I77.9 ; Vitamin B12 deficiency E53.8 ; Pernicious anemia D51.0 ; Macular degeneration of both eyes, unspecified type H35.30 and Continuous leakage of urine N39.45 Jose G Dickerson III, MD [address] [place] [address] [place] [address] 12/21/2024 Jose G Hurtne Prostate cancer C61 ; Tobacco dependence F17.200 ; Essential hypertension I10 ; Macular degeneration of both eyes, unspecified type H35.30 ; Stage 3 chronic kidney disease N18.3 ; Iron deficiency anemia, unspecified iron deficiency anemia type D50.9 ; Peripheral arterial occlusive disease I77.9 ; 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, initial encounter S24.114A and Pernicious anemia D51.0 Jose G Dickerson III, MD [address] [place] [address] [place] [address] 08/15/2024 Jose G Dickerson III, MD [address] [place] [address] [place] [address] 08/22/2024 Jose G Dickerson III, MD [address] [place] [address] [place] [address] 08/26/2024 Jose G Dickerson III, MD [address] [place] [address] [place] [address] 09/19/2024 Jose G Dickerson III, MD [address] [place] [address] [place] [address] 09/28/2024 Jose G Dickerson III, MD [address] [place] [address] [place] [address] 10/18/2024 Jose G Dickerson III, MD [address] [place] [address] [place] [address] 10/28/2024 Jose G Dickerson III, MD [address] [place] [address] [place] [address] 10/28/2024 Jose G Dickerson III, MD [address] [place] [address] [place] [address] 12/12/2024 Jose G Dickerson III, MD [address] [place] [address] [place] [address] 01/06/2025 Jose G Dickerson III, MD [address] [place] [address] [place] [address] 01/06/2025 Jose G Dickerson Assessments Encounter Date Diagnosis (ICD Code) Assessment Notes Treat ment Notes Treatment Clinical Notes 01/18/2025 Prostate cancer (ICD-10 - C61) 02/03/2024 Prostate cancer (ICD-10 - C61) The [...] and labs are pending at this time. 10/12/2024 Prostate cancer (ICD-10 - C61) His PSA remains low and controlled. He is tolerating his androgen deprivation well. He is treated with Eligard. His testosterone level is 2. His PSA is 0.23. This is consistent with remission of the prostate cancer. He will continue under the care of Dr. Mace. 10/12/2024 Essential hypertension (ICD-10 - I10) His blood pressure is stable and no change in his regimen was needed today.Evaluation 107/70 likely due to his weight loss. 10/26/2024 Prostate cancer (ICD-10 - C61) His PSA remains low and controlled. He is tolerating his androgen deprivation well. He is treated with Eligard. His testosterone level is 2. His PSA is 0.23. This is consistent with remission of the prostate cancer. He will continue under the care of Dr. Mace. 10/26/2024 Essential hypertension (ICD-10 - I10) His blood pressure is stable and no change in his regimen was needed today.He was 134/61. 11/23/2024 Prostate cancer (ICD-10 - C61) His PSA remains low and controlled. He is tolerating his androgen deprivation well. He is treated with Eligard. His testosterone level is 2. His PSA is 0.23. This is consistent with remission of the prostate cancer. He will continue under the care of Dr. Mace.He is scheduled for another dose of leuprolide later this month. 11/23/2024 Tobacco dependence (ICD-10 - F17.200) I have discussed with him all of the long-term consequences of smoking and he is well aware of them. I have offered to refer him to smoking cessation programs at the [facility] and he will consider this. 12/02/2024 Prostate cancer (ICD-10 - C61) His [...] his regimen was needed today.He was 134/61. 12/21/2024 Prostate cancer (ICD-10 - C61) His PSA remains low and controlled. He is tolerating his androgen deprivation well. He is treated with Eligard. His testosterone level is 2. His PSA is 0.23. This is consistent with remission of the prostate cancer. He will continue under the care of Dr. Mace. 12/21/2024 Tobacco dependence (ICD-10 - F17.200) I have discussed with him all of the long-term consequences of smoking and he is well aware of them. I have offered to refer him to smoking cessation programs at the [facility] and he will consider this. 01/18/2025 UTI symptoms (ICD-10 - R39.9) 02/03/2024 Macular degeneration of both eyes, unspecified type (ICD-10 - H35.30) He will continue to receive his bevacizumab injections from his acid adjuster. 2024 Iron deficiency anemia, unspecified iron deficiency [...] to receive his bevacizumab injections from his acid adjuster. 08/26/2024 Macular degeneration of both eyes, unspecified type (ICD-10 - H35.30) He will continue to receive his bevacizumab injections from his acid adjuster. 09/27/2024 Essential hypertension (ICD-10 - I10) His blood pressure is stable and no change in his regimen was needed today. 10/12/2024 Macular degeneration of both eyes, unspecified type (ICD-10 - H35.30) He will continue to receive his bevacizumab injections from his acid adjuster. 10/26/2024 Macular degeneration of both eyes, unspecified type (ICD-10 - H35.30) He will continue to receive his bevacizumab injections from his acid adjuster. 11/23/2024 Essential hypertension (ICD-10 - I10) His blood pressure is stable and no change in his regimen was needed today.He was 134/61. 12/02/2024 Stage 3 chronic kidney disease (ICD-10 - N18.3) His BUN and creatinine remain elevated. He remains under the care of nephrology this point. He was encouraged to hydrate aggressively. 12/21/2024 Essential hypertension (ICD-10 - I10) His blood pressure is stable at 126/68 and no change in his regimen was needed today.He was 134/61. 02/03/2024 Stage 3 chronic kidney disease (ICD-10 [...] him to smoking cessation programs at the [facility] and he will consider this. 04/15/2024 Tobacco dependence (ICD-10 - F17.200) I have discussed with him all of the long-term consequences of smoking and he is well aware of them. I have offered to refer him to smoking cessation programs at the [facility] and he will consider this. 04/28/2024 Tobacco dependence (ICD-10 - F17.200) I have discussed with him all of the long-term consequences of smoking and he is well aware of them. I have offered to refer him to smoking cessation programs at the [facility] and he will consider this. 06/08/2024 Macular degeneration of both eyes, unspecified type (ICD-10 - H35.30) He will continue to receive his bevacizumab injections from his acid adjuster. 07/07/2024 Iron deficiency anemia, unspecified iron deficiency [...] No open areas on his lower extremities. 10/12/2024 Stage 3 chronic kidney disease (ICD-10 - N18.3) His BUN and creatinine remain elevated. He remains under the care of nephrology this point. He was encouraged to hydrate aggressively. 10/26/2024 Stage 3 chronic kidney disease (ICD-10 - N18.3) His BUN and creatinine remain elevated. He remains under the care of nephrology this point. He was encouraged to hydrate aggressively. 11/23/2024 Macular degeneration of both eyes, unspecified type (ICD-10 - H35.30) He will continue to receive his bevacizumab injections from his acid adjuster. 12/02/2024 Tobacco dependence (ICD-10 - F17.200) I have discussed with him all of the long-term consequences of smoking and he is well aware of them. I have offered to refer him to smoking cessation programs at the [facility] and he will consider this. 12/21/2024 Macular degeneration of both eyes, unspecified type (ICD-10 - H35.30) He will continue to receive his bevacizumab injections from his acid adjuster.He has been referred to Dr. Sheriff for additional evaluation of his vision. 02/03/2024 Iron deficiency anemia, unspecified iron deficiency [...] to receive his bevacizumab injections from his acid adjuster. 07/12/2024 Iron deficiency anemia, unspecified iron deficiency [...] him to smoking cessation programs at the [facility] and he will consider this. 09/27/2024 Stage 3 chronic kidney disease (ICD-10 - N18.3) His BUN has dropped from 36-30 and his GFR has improved to 35. His creatinine is improved from 2.12-1.87. Current therapy was continued.He was seen in the hospital recently by nephrology consultation. Follow-up visit with renal was made upon discharge. 10/12/2024 Iron deficiency anemia, unspecified iron deficiency anemia type (ICD-10 - D50.9) His ferritin which was 15 is now 32. He will continue on the ferrous gluconate. His hematocrit has improved to 33%. 10/26/2024 Iron deficiency anemia, unspecified iron deficiency anemia type (ICD-10 - D50.9) His ferritin which was 15 is now 32. He will continue on the ferrous gluconate. His hematocrit has improved to 33%. 11/23/2024 Stage 3 chronic kidney disease (ICD-10 - N18.3) His BUN and creatinine remain elevated. He remains under the care of nephrology this point. He was encouraged to hydrate aggressively. 12/02/2024 Peripheral arterial occlusive disease (ICD-10 - I77.9) There is been no change in his claudication or peripheral arterial disease. He is up-to-date with his visits to the vascular surgeon. No open areas on his lower extremities. 12/21/2024 Stage 3 chronic kidney disease (ICD-10 - N18.3) His BUN and creatinine remain elevated. He remains under the care of nephrology this point. He was encouraged to hydrate aggressively. 02/03/2024 Complete lesion at T11-T12 level of [...] him to smoking cessation programs at the [facility] and he will consider this. 03/30/2024 [...] gluconate. His hematocrit has improved to 33%. 10/12/2024 Tobacco dependence (ICD-10 - F17.200) I have discussed with him all of the long-term consequences of smoking and he is well aware of them. I have offered to refer him to smoking cessation programs at the [facility] and he will consider this. 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 I will continue. We will begin receiving denosumab. 11/23/2024 Iron deficiency anemia, unspecified iron deficiency anemia type (ICD-10 - D50.9) His hematocrit is now 30%, which is a drop but he recently had surgery. This value will be followed carefully. 12/02/2024 Vitamin B12 deficiency (ICD-10 - E53.8) He received an injection of 1000 mcg intramuscular injection in the right arm without difficulty. He will do this monthly. 12/21/2024 Iron deficiency anemia, unspecified iron deficiency anemia type (ICD-10 - D50.9) His hematocrit is now 30%, which is a drop but he recently had surgery. This value will be followed carefully. 02/03/2024 Pernicious anemia (ICD-10 - D51.0) He [...] to receive his bevacizumab injections from his acid adjuster. 04/15/2024 Macular degeneration of both eyes, unspecified type (ICD-10 - H35.30) He will continue to receive his bevacizumab injections from his acid adjuster. 04/28/2024 Macular degeneration of both eyes, unspecified type (ICD-10 - H35.30) He will continue to receive his bevacizumab injections from his acid adjuster. 06/08/2024 Tobacco dependence (ICD-10 - F17.200) I have discussed with him all of the long-term consequences of smoking and he is well aware of them. I have offered to refer him to smoking cessation programs at the [facility] and he will consider this. 07/07/2024 [...] him to smoking cessation programs at the [facility] and he will consider this. 08/26/2024 [...] him to smoking cessation programs at the [facility] and he will consider this. 10/12/2024 Peripheral arterial occlusive disease (ICD-10 - I77.9) There is been no change in his claudication or peripheral arterial disease. He is up-to-date with his visits to the vascular surgeon. No open areas on his lower extremities. 10/26/2024 Peripheral arterial occlusive disease (ICD-10 - I77.9) There is been no change in his claudication or peripheral arterial disease. He is up-to-date with his visits to the vascular surgeon. No open areas on his lower extremities. 11/23/2024 Herniated lumbar intervertebral disc (ICD-10 - M51.26) Neurosurgery has recommended surgery on the herniated disc. The date is being arranged. 12/02/2024 Pernicious anemia (ICD-10 - D51.0) He received 1000 mcg of vitamin B12by intramuscular injection in the left armToday without difficulty. 12/21/2024 Peripheral arterial occlusive disease (ICD-10 - I77.9) There is been no change in his claudication or peripheral arterial disease. He is up-to-date with his visits to the vascular surgeon. No open areas on his lower extremities. 02/03/2024 Tobacco dependence (ICD-10 - F17.200) I have discussed with him all of the long-term consequences of smoking and he is well aware of them. I have offered to refer him to smoking cessation programs at the [facility] and he will consider this. 2024 [...] will continue. We will begin receiving denosumab. 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 I will continue. We will begin receiving denosumab. 10/26/2024 Tobacco dependence (ICD-10 - F17.200) I have discussed with him all of the long-term consequences of smoking and he is well aware of them. I have offered to refer him to smoking cessation programs at the [facility] and he will consider this. 12/02/2024 Macular degeneration of both eyes, unspecified type (ICD-10 - H35.30) He will continue to receive his bevacizumab injections from his acid adjuster. 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 I will continue. We will begin receiving denosumab. 04/15/2024 B12 deficiency (ICD-10 - E53.8) He [...] him to smoking cessation programs at the [facility] and he will consider this. 07/12/2024 [...] injection in the left armToday without difficulty. 10/12/2024 Pernicious anemia (ICD-10 - D51.0) He received 1000 mcg of vitamin B12by intramuscular injection in the left armToday without difficulty. 10/26/2024 Pernicious anemia (ICD-10 - D51.0) He received 1000 mcg of vitamin B12by intramuscular injection in the left armToday without difficulty. 12/02/2024 Continuous leakage of urine (ICD-10 - N39.45) I have resumed his tamsulosin referred him back to urology. 12/21/2024 Pernicious anemia (ICD-10 - D51.0) He received 1000 mcg of vitamin B12by intramuscular injection in the left armToday without difficulty. 07/07/2024 Pernicious anemia (ICD-10 - D51.0) He received 1000 mcg of vitamin B12by intramuscular injection in the left armToday without difficulty. 10/12/2024 Herniated lumbar intervertebral disc (ICD-10 - M51.26) He continues to have pain and will be seen by neurosurgery and pain management 10/26/2024 Herniated lumbar intervertebral disc (ICD-10 - M51.26) Neurosurgery has recommended surgery on the herniated disc. The date is being arranged. 10/12/2024 Preoperative clearance (ICD-10 - Z01.818) He has multiple comorbidities such as peripheral arterial disease chronic renal disease and lifelong smoking. However, he has no history of cardiac disease his risk of morbidity and mortality from surgery is higher than that of a healthy man his age but is acceptable in view of the anterior pain. We will await neurosurgical consultation. Plan Of Treatment Pending Test Test Name Order Date US LEG UNILATERAL ARTERY 06/05/2021 US LEG UNILATERAL ARTERY 05/30/2021 Urine Culture 01/18/2025 ECG 12 lead EKG 09/27/2024 NUC Stress Test 09/27/2024 Next Appt Details Provider Name:Jose G Dickerson, 02/15/2025 10:15:00 AM, [address] [place] [address] [address], [place], [id number], Provider Name:Jose G Dickerson, 03/15/2025 09:45:00 AM, [address] [place] [address] [address], [place], [phone], Provider Name:Jose G Dickerson, 04/12/2025 10:00:00 AM, [address] [place] [address] [address], [place], [phone], Provider Name:Jose G Dickerson, 04/19/2025 02:00:00 PM, [address] [place] [address] [address], [place], [phone], Insurance Providers Payer Name Payer Address Payer Phone Subscriber Number Group Number Insured Name Patient Relationship to Insured Coverage Start Date Coverage End Date MEDICARE NGS [address] [facility] [place] Malone [phone] [id number] MACI BARAHONA Self - patient is the insured [facility] [address] [place], [place] [id number] [phone] [id number] MACI BARAHONA Self - patient is [...] at with UTI Surgical History Surgery Date(Month/Year) Right L3-4 Laminotomy, Parti al facetectomy and foraminotomy with use of microscope 11/17/2024 Cataract Surgery, right eye 2023 Surgical drainage of scrotal abscess under anesthesia [facility] 03/2022 history of back surgery 02/2022 cryoablation of the prostate 2014 excision draining scrotal sinus 2013 incision and drainage left lateral thigh abscess 2008 Hospitalization History Reason Date(Month/Year) inpt at with UTI 08/2024 No history Drainage of scrotal abscess. [facility] 03/2022 Posterior Fusion Lumbar spine L3- L4 2021 CKD, CHF and HTN 08/2021
--- OUTSIDE RECORDS SUMMARY | 2025-01-18 15:35 | XMS_ITS | Clinical Summary ---
Author Organization [facility] Address [address] [place] [address] Phone Care Team Providers Care Clinical Rn Name Role Phone Jose G Dickerson MD Primary Care Provider [phone] Social History Tobacco Use Types Packs/Day Years [...] Payer (Ef fective 2014-Present) Name:Keshav Ramos Member ID:[id number] Relation to Subscriber:Self Name:RachelKeshav Subscriber ID:[id number] Payer ID:[id number] Group ID:Not on file Type:Medicare Address: [employer] [address] MEDICARE PART A & B Care Teams Clinical Rn Relationship Specialty Start Date End Date Jose G Dickerson MD [facility] [place] [address] PCP - General Medical Oncology 08/19/24 Additional Source Comments The information contained in this document represents components of the legal health record. It is not the complete legal health record.[facility]
--- OUTSIDE RECORDS SUMMARY | 2025-01-18 15:36 | XMS_ITS | Encounter Summary ---
Author Organization [facility] Address [address] [place] [address] Phone Care Team Providers Care Metal Welder Name Role Phone Jose G Dickerson MD Primary Care Provider [phone] Reason for Visit * Reason Comments Med Refill Encounter Details Date Type Department Care Team (Late st Contact Info) Description 02/11/2023 Refill [facility] [address] [place] [id number] Jon Ma MD Social History Tobacco Use [...] on filedocumented in this encounter Care Teams Metal Welder Relationship Specialty Start Date End Date Jose G Dickerson MD [address] [place] [address] [address] [facility] [place] P[facility] - General Medical Oncology 04/05/21 documented as of this encounter
--- OUTSIDE RECORDS SUMMARY | 2025-01-18 15:36 | XMS_ITS | Clinical Summary ---
Author Organization [facility] Address [address] [place] [address] Phone Care Team Providers Care Last Sorter Name Role Phone Jose G Dickerson MD Primary Care Provider [phone] Allergies No known active allergies Medications No [...] of 2 - PCV) 1967 Influenza Vaccine (#1) 2025 Hepatitis B Vaccine Aged Out No longe r eligible based on patient's age to complete this topic Insurance [facility] [place] [place] [id number] [facility] Medicare Care Teams Last Sorter Relationship Specialty Start Date End Date Jose G Dickerson MD [address] [place] [address] [address] [place] PCP - General Medical Oncology 04/05/21
== END 2025-01-18 12:06 | disposition home or self-care (01) ==
LOC: HO.LNP 12:05
PROVIDERS: Visit Provider Internal Medicine Medical Oncology
DX: R39.9 Unspecified symptoms and signs involving the genitourinary system (principal); Z98.890 Other specified postprocedural states
CPT/HCPCS: 87086; 99212

== ENCOUNTER 2025-01-18 12:51 | Outpatient (AMB) | payer MEDICARE, SELFPAY ==
--- NOTE | 2025-01-18 12:59 | A.SPINEOV_ITS ---
Intake Visit Reasons: 2nd post op Intake Note: Mr. Ramos is here today for his 2nd post op. Steward/Stewardess Tourist Class Required: No Allergies No Known Allergies (No Known Allergies*) Allergy (Verified 01/18/25 13:00) Assessment & Plan Assessment & Plan (1) Status post lumbar spine surgery for decompression of spinal cord: Code(s): Z98.890 - Other specified postprocedural states Category: Medical Plan Procedure: Right L3-4 Lumbar Decompression Keshav is a pleasant 74-year-old male who comes in today for his 2nd postoperative visit after having L3-4 lumbar decompression completed on 11/17/24. He reports that he continues to have zero pain when sitting down and resting, which is an important improvement since his surgery, however he does continue to report difficulties with pain when ambulating. He states that he has been trying to get up and ambulate throughout the day, but does not feel this has been particularly helpful. He asked several questions regarding the postoperative healing course, all of which I answered to the best of my ability. No new neurological deficits. The patient ambulates well and rises from seated position without difficulty. He ambulates with the assistance of a cane. Keshav and I discussed potential referral to physical therapy the end this visit. He states that he has to go for a trip to [place] for a couple of weeks consider doing physical on his strength. If he does decide to proceed with physical therapy, he will call the office let us know so we can place the referral. Otherwise there is no need for continued routine follow up with Keshav. His residual pains will likely work themselves out with time. Santy Cuellar MD,PhD [facility] Coding Level of Care Code Global (38334) Diagnoses Status post lumbar spine surgery for decompression of spinal cord Z98.890
== END 2025-01-18 13:08 | disposition home or self-care (01) ==
LOC: HO.HNS 12:52
PROVIDERS: PCP Internal Medicine Medical Oncology; Visit Provider Physician Assistant
DX: Z98.890 Other specified postprocedural states (principal)
CPT/HCPCS: 99024

== ENCOUNTER 2025-02-21 07:45 | Outpatient (REF) | payer MEDICARE, SELFPAY ==
--- OUTSIDE RECORDS SUMMARY | 2024-10-28 10:25 | XMS_ITS ---
Author Organization Jose G Dickerson III, MD Address [address] [place] [address] [place] [address] Care Team Providers Care Probation And Patrol Agent Name Role Phone Dr. Jose G Dickerson III Primary Care Provider REASON FOR VISIT Rx Request Social History Sex Assigned At : Social History Observation Description Sex Assigned At Male Encounters Encounter Location Date Provider Diagnosis Jose G Dickerson III, MD [address] [place] [address] [place] [address] 10/28/2024 Jose G Dickerson Plan Of Treatment Next Appt Details Provider Name:Jose G Dickerson , 03/15/2025 09:45:00 AM, [address] [place] [address] [place], [address], Provider Name:Jose G Dickerson , 04/12/2025 10:00:00 AM, [address] [place] [address] [place], [address], Provider Name:Jose G Dickerson , 04/19/2025 02:00:00 PM, [address] [place] [address] [place], [address], Progress Notes * MACI RAMOS PDOB:1949 (74 yo M)Acc No.[id number]:10/28/2024 Patient: MACI COLINDRES :1950 A ge:74 Y S ex:Male Address:[address] [place] [address] [facility] [place], [address] * true * Date: Generated for Printi ng/Faxing/Liban on: 1 07:53 AM EDT
--- OUTSIDE RECORDS SUMMARY | 2024-10-28 11:31 | XMS_ITS ---
Author Organization Jose G Dickerson III, MD Address [address] [place] [address] [place] [address] Care Team Providers Care Gun Repair Clerk Name Role Phone Dr. Jose G Dickerson [...] Provider Diagnosis Jose G Dickerson III, MD [address] [place] [address] [place] [id number] 10/28/2024 Jose G Dickerson Plan Of Treatment Medication Medication Name Sig Start Date Stop Date Notes Tamsulosin HCl 0.4 MG 1 capsule Orally O nce a day for 30 days 10/28/2024 10/23/2025 Next Appt Details Provider Name:Jose G Dickerson , 03/15/2025 09:45:00 AM, [address] [place] [address] [place], [address], Provider Name:Jose G Dickerson , 04/12/2025 10:00:00 AM, [address] [place] [address] [place], [address], Provider Name:Jose G Dickerson , 04/19/2025 02:00:00 PM, [address] [place] [address] [place], [phone], Progress Notes * MACI RAMOS PDOB:1949 (74 yo M)Acc No.[id number]:10/28/2024 Patient: MACI COLINDRES :1950 A ge:74 Y S ex:Male Address:[address] [place] [address], [phone] * Refills Start Tamsulosin HCl Capsule, 0.4 MG, Orally, 30, 1 capsule, Once a day, 30 days, Refills=11 * true * Date: Generated for Kati aguilera/Jovana/eTransmitting on: 1 07:52 AM EDT
--- OUTSIDE RECORDS SUMMARY | 2024-12-02 07:15 | XMS_ITS ---
Author Organization Jose G Dickerson III, MD Address [address] [place] [address] Care Team Providers Care Food Clerk Name Role Phone Dr. Jose G Dickerson III Primary Care Provider [phone] Allergies Allergen (clinical drug ingredient) Drug/Non Drug Allergy documented on EMR Reaction Allergy Type Onset Date Status No Known Drug Allergy Unknown Drug Allergy Active REASON FOR VISIT Metastatic prostate cancer, Recent spine surgery, Chronic low back pain, Pernicious anemia, Peripheral arterial occlusive disease, Chronic kidney disease, Hypertension, Macular degeneration, Tobacco dependence Medications Medication SIG (Take, Route, Frequency, Duration) Notes Start Date End Date Status Cyanocobalamin 1000 MCG/ML 1 mL Injection 03/31/20 24 Active Ferrous Gluconate 324 (38 Fe) MG 1 tablet Orally daily 03/30/2024 Active Tamsulosin HCl 0.4 MG 1 capsule Orally O nce a day 10/28/2024 Active Tamsulosin HCl 0.4 MG 1 capsule Orally t eice a day for 30 days 12/02/2024 11/27/2025 Active Social History Tobacco Use: Social History [...] cigs/day) Vital Signs Temperature 97.2 degrees Fahrenheit 12/03/19 25 Blood pressure systolic 135 mm Hg 12/03/19 25 Blood pressure diastolic 68 mm Hg 025 Heart Rate 92 /min 12/02/2024 Height 69 in 12/02/2024 Weight 152 lbs 12/02/2024 BMI 22.44 kg/m2 12/02/2024 Encounters Encounter Location Date Provider Diagnosis Jose G Dickerson III, MD [address] [place] [address] [place] [address] 12/02/2024 Jose G Dickerson Prostate cancer C61 ; Essential hypertension I10 ; Stage 3 chronic kidney disease N18.3 ; Tobacco dependence F17.200 ; Peripheral arterial occlusive disease I77.9 ; Vitamin B12 deficiency E53.8 ; Pernicious anemia D51.0 ; Macular degeneration of both eyes, unspecified type H35.30 and Continuous leakage of urine N39.45 Assessments Encounter Date Diagnosis (ICD Code) Assessment Notes Treatment Notes Treatment Clinical Notes 12/02/2024 Prostate cancer (ICD-10 - C61) His PSA remains low and controlled. He is tolerating his androgen deprivation well. He is treated with Eligard. His testosterone level is 2. His PSA is 0.23. This is consistent with remission of the prostate cancer. He will continue under the care of Dr. Mace. 12/02/2024 Essential hypertension (ICD-10 - I10) His blood pressure is stable and no change in his regimen was needed today.He was 134/61. 12/02/2024 Stage 3 chronic kidney disease (ICD-10 - N18.3) His BUN and creatinine remain elevated. He remains under the care of nephrology this point. He was encouraged to hydrate aggressively. 12/02/2024 Tobacco dependence (ICD-10 - F17.200) I have discussed with him all of the long-term consequences of smoking and he is well aware of them. I have offered to refer him to smoking cessation programs at the [facility] and he will consider this. 12/02/2024 Peripheral arterial occlusive disease (ICD-10 - I77.9) There is been no change in his claudication or peripheral arterial disease. He is up-to-date with his visits to the vascular surgeon. No open areas on his lower extremities. 12/02/2024 Vitamin B12 deficiency (ICD-10 - E53.8) He received an injection of 1000 mcg intramuscular injection in the right arm without difficulty. He will do this monthly. 12/02/2024 Pernicious anemia (ICD-10 - D51.0) He received 1000 mcg of vitamin B12by intramuscular injection in the left armToday without difficulty. 12/02/2024 Macular degeneration of both eyes, unspecified type (ICD-10 - H35.30) He will continue to receive his bevacizumab injections from his shop director. 12/02/2024 Continuous leakage of urine (ICD-10 - N39.45) I have resumed his tamsulosin referred him back to urology. Plan Of Treatment Medication Medication Name Sig Start Date Stop Date Notes Cyanocobalamin 1000 MCG/ML 1 mL Injection 03/31/2024 Ferrous Gluconate 324 (38 Fe ) MG 1 tablet Orally daily 03/30/2024 Tamsulosin HCl 0.4 MG 1 capsule Orally O nce a day 10/28/2024 Tamsulosin HCl 0.4 MG 1 capsule Orally t eice a day for 30 days 12/02/2024 11/27/2025 Next Appt Details Follow Up: 1 Week, Reason: O V Provider Name:Jose G Dickerson , 03/15/2025 09:45:00 AM, [address] [place] [address] [address], [place], [address], Provider Name:Jose G Dickerson , 04/12/2025 10:00:00 AM, [address] [place] [address] [address], [place], [address], Provider Name:Jose G Dickerson , 04/19/2025 02:00:00 PM, [address] [place] [address] [address], [place], [address], Progress Notes * MACI RAMOS PDOB:1949 (74 yo M)Acc No.[id number]:12/02/2024 Progress Notes Patient: MACI COLINDRES Provider: Kenan Dickerson MD :1950 A ge:74 Y S ex:Male Date:12/02/2024 Address:[address] [place] [address] [id number] Subjective: * Chief Complaints: * M etastatic prostate cancerRecent spine surgeryChronic low back painPernicious anemiaPeripheral arterial occlusive diseaseChronic kidney diseaseHypertensionMacular degenerationTobacco dependence * HPI: C OVID-19 Screening: He has recovered from his recent spine surgery. The wound is no longer bleeding and is well healed. He still has residual pain and has an appointment next week to see the neurosurgeon. He is up-to-date with his vitamin B12 injections. He is having significant urinary difficulty. He cannot urinate on command during the day but whenever he lies down particularly at night he has to urinate every 45 minutes. He says he is dribbling urine all day long. He may have obstructive uropathy with overflow incontinence. I have referred him back to urology for urodynamics and definitive diagnosis and treatment. He has not been taking his tamsulosin. I resume the tamsulosin at 0.4 mg twice a day. He will telephone me after the weekend on December 05, 2024 to report.He was unable to produce any urine today for a culture. Another attempt will be made next week. Questions H ave you had any new onset fever, chills, cough, congestion, sore throat, shortness of breath, muscle aches? N o * ROS: G eneral/Constitutional: pain L ower thoracic spine in recent incision. C hills?denies. F atigue a dmits. F ever d enies. E NT: Decreased hearing m ild. R espiratory: Cough d enies. C ardiovascular: Chest pain with exertion d enies. D yspnea on exertion?denies. S hortness of breath d enies. G astrointestinal: Constipation o ccasional. D ecreased appetite d enies. D iarrhea d enies. H eartburn d enies. N ausea d enies. R ectal bleeding d enies. V omiting d enies. H ematology: bruising d enies. p etechiae d enies. S wollen glands n one have been noted. G enitourinary: Frequent urination E very 45 minutes of 9. M usculoskeletal: Muscle aches d enies. P ainful joints d enies. S ciatica d enies. W eakness t hat is generalized. S kin: Itching d enies. R dario d enies. S kin lesion(s)?denies. N eurologic: Difficulty speaking d enies. D izziness d enies.?Headache d enies. L ow back pain t hat is chronic. P sychiatric: Depressed mood w hich is moderate. * Medical History: * Surgical History: i ncision and drainage left lateral thigh abscess 2009excision draining scrotal sinus 2014cryoablation of the prostate 2014history of back surgery urgical drainage of scrotal abscess under anesthesia [facility] ataract Surgery, right eye ight L3-4 Laminotomy, Partial facetectomy and foraminotomy with use of microscope 11/17/2024 * Hospitalization/Major Diagno stic Procedure: C KD, CHF and HTN osterior Fusion Lumbar spine L3- L4 rainage of scrotal abscess. [facility] 03/2022No history inpt at with UTI 08/2024 * Family History: F ather: 65 yrs, Coronary artery disease. M other: 64 yrs, COPD. S iblings: . 1 son(s) . . His sister in an accident due to a fall. He is not aware of any inherited cancer family syndrome. He is not aware of any family history of mental illness or addiction or substance abuse. * Social History: T obacco Use: T obacco Use/Smoking P atient is a c urrent smoker H ow often do you smoke cigarettes? s ome days, but not every day H ow many cigarettes a day do you smoke? 5 or less H ow soon after you wake up do you smoke your first cigarette? a fter 60 minutes A re you interested in quitting? T hinking about quitting A dditional Findings: Tobacco User L ight cigarette smoker ((1-9 cigs/day) H e lives in [facility]. He is not a Islam. He is and lives with his . He smokes 5 cigarettes per day. * Medications: T akingTamsulosin HCl 0.4 MG Capsule 1 capsule Orally Once a day Cyanocobalamin 1000 MCG/ML Solution 1 mL Injection Ferrous Gluconate 324 (38 Fe) MG Tablet 1 tablet Orally daily Medication List reviewed and reconciled with the patientTaking Tamsulosin HCl 0.4 MG Capsule 1 capsule Orally Once a day Taking Cyanocobalamin 1000 MCG/ML Solution 1 mL Injection Taking Ferrous Gluconate 324 (38 Fe) MG Tablet 1 tablet Orally daily Medication List reviewed and reconciled with the patient * Allergies: N o Known Drug Allergyno[Allergies Verified] Objective: * Vitals: H t: 69, Wt:152, BMI:22.44, BP:135/68, HR:92, Temp:97.2, Ht-cm: 175.26, Wt-k.95. * Examination: G eneral Examination: GENERAL APPEARANCE: p leasant, well nourished, well developed, in no acute distress, Chronicallly ill-appearing elderly gentleman. HEAD: a traumatic, normocephalic. EYES: e britt, perrla, anicteric, conjugate. EARS: n ormal. NOSE: s eptum intact. ORAL CAVITY: n ormal, unremarkable. NECK/THYROID: n o jugular venous distention, no carotid bruit, thyroid normal. LYMPH NODES: n o enlarged lymph nodes,spleen normal. SKIN: n o suspicious lesions, anicteric. HEART: n o clicks, gallops, murmurs, or rubs, regular rhythm, S1, S2 normal, no s3, or vascular bruits. LUNGS: c lear to auscultation . BREASTS: no masses palpable bilaterally. ABDOMEN: b owel sounds normal, no ascites, no organomegaly, no mass. RECTAL EXAM: n ot examined. MUSCULOSKELETAL: e xtremities unremarkable, no clubbing, cyanosis or edema, Recent surgical incision over the lower thoracic and upper lumbar spine. PERIPHERAL PULSES: n ormal. NEUROLOGIC: a lert and oriented, cranial nerves 2-12 grossly intact, deep tendon reflexes 2+ symmetrical, motor strength normal upper and lower extremities, sensory exam intact. PSYCH: a lert, oriented: anxious appearing: mood depressed.? Assessment: * Assessment: 1. P rostate cancer - C61 (Primary) N otes :His PSA remains low and controlled. He is tolerating his androgen deprivation well. He is treated with Eligard. His testosterone level is 2. His PSA is 0.23. This is consistent with remission of the prostate cancer. He will continue under the care of Dr. Mace. 2 . E ssential hypertension - I10 N otes :His blood pressure is stable and no change in his regimen was needed today.He was 134/61. 3 . S tage 3 chronic kidney disease - N18.3 N otes :His BUN and creatinine remain elevated. He remains under the care of nephrology this point. He was encouraged to hydrate aggressively. 4 . T obacco dependence - F17.200 N otes :I have discussed with him all of the long-term consequences of smoking and he is well aware of them. I have offered to refer him to smoking cessation programs at the [facility] and he will consider this. 5 . P eripheral arterial occlusive disease - I77.9 N otes :There is been no change in his claudication or peripheral arterial disease. He is up-to-date with his visits to the vascular surgeon. No open areas on his lower extremities. 6 . V itamin B12 deficiency - E53.8 N otes :He received an injection of 1000 mcg intramuscular injection in the right arm without difficulty. He will do this monthly. 7 . P ernicious anemia - D51.0 N otes :He received 1000 mcg of vitamin B12by intramuscular injection in the left armToday without difficulty. 8 . M acular degeneration of both eyes, unspecified type - H35.30 ?Notes :He will continue to receive his bevacizumab injections from his shop director. 9 . C ontinuous leakage of urine - N39.45 N otes :I have resumed his tamsulosin referred him back to urology. Plan: * Treatment: * Procedure Codes: * Preventive Medicine: Counseling: S moking/Tobacco Use Patient counseled on the dangers of tobacco use and urged to quit. 0 12/02/2024 Patient Lifestyle Goals P atient wants to quit Treatment Goals S et a quit date, Cut down by 1 cigarette a week Barriers S tress Self-Management Plan M sandy a plan to cut down number of cigarettes over time and set a date to work towards quitting * Follow Up: 1 Week (Reason: OV) * Images: * Sign off status: Completed true * Provider: Kenan Dickerson MD Date: 0 12/02/2024 Generated for Kapili ng/Favarinderg/eTransmitting on: 1 07:53 AM EDT History and Physical Notes * HPI (History of Present Illness) Category Sub-Category Detail Notes COVID-19 Screening Questions Have you had any new onset fever, chills, cough, congestion, sore throat, shortness of breath, muscle aches?: No Examination Category Sub-Category Detail Notes General Examination GENERAL APPEARANCE: pleasant , well nourished, well developed, in no acute distress, Chronicallly ill-appearing elderly gentleman HEAD: atraumatic, normocep halic EYES: eomi, perrla, [...] unremark able, no clubbing, cyanosis or edema, Recent surgical incision over the lower thoracic and upper lumbar spine LYMPH NODES: no enlarged lymph no ritesh,spleen normal RECTAL EXAM: not examined PSYCH: alert, oriented: anx ious appearing: mood depressed ORAL CAVITY: normal, unremarkable
--- OUTSIDE RECORDS SUMMARY | 2024-12-12 10:00 | XMS_ITS ---
Author Organization Jose G Dickerson III, MD Address [address] [place] [address] [place] [address] Care Team Providers Care Towel Sewer Name Role Phone Dr. Jose G Dickerson III Primary Care Provider [phone] REASON FOR VISIT ? on meds that Dr Mace gave him Social History Sex Assigned At : Social History Observation Description Sex Assigned At Male Encounters Encounter Location Date Provider Diagnosis Jose G Dickerson III, MD [address] [place] [address] [place] [address] 12/12/2024 Jose G Dickerson Plan Of Treatment Next Appt Details Provider Name:Jose G Dickerson , 03/15/2025 09:45:00 AM, [address] [place] [address] [place], [address], Provider Name:Jose G Dickerson , 04/12/2025 10:00:00 AM, [address] [place] [address] [place], [address], Provider Name:Jose G Dickerson , 04/19/2025 02:00:00 PM, [address] [place] [address] [place], [address], Progress Notes * MACI RAMOS PDOB:1949 (74 yo M)Acc No.[id number]:12/12/2024 Patient: MACI COLINDRES :1950 A ge:74 Y S ex:Male Address:[address] [facility] [place], [address] * true * Date: Generated for Kati aguilera/Jovana/Liban on: 1 07:53 AM EDT
--- OUTSIDE RECORDS SUMMARY | 2025-01-06 09:03 | XMS_ITS ---
Author Organization Jose G Dickerson III, MD Address [address] [place] [address] [place] [address] Care Team Providers Care Orchestra Leader Name Role Phone Dr. Jose G Dickerson III Primary Care Provider [phone] REASON FOR VISIT UTI Medications Medication SIG (Take, Route, Frequency, Duration) Notes Start Date End Date Status Cyanocobalamin 1000 MCG/ML 1 mL Injection 03/31/20 Active Ferrous Gluconate 324 (38 Fe) MG 1 tablet Orally daily 03/30/2024 Active Tamsulosin HCl 0.4 MG 1 capsule Orally t eice a 12/02/2024 Active Social History Sex Assigned At : Social History Observation Description Sex Assigned At Male Encounters Encounter Location Date Provider Diagnosis Jose G Dickerson III, MD [address] [place] [address] [place] [address] 01/06/2025 Jose G Dickerson Plan Of Treatment Next Appt Details Provider Name:Jose G Dickerson , 03/15/2025 09:45:00 AM, [address] [place] [address] [place], [address], Provider Name:Jose G Dickerson , 04/12/2025 10:00:00 AM, [address] [place] [address] [place], [address], Provider Name:Jose G Dickerson , 04/19/2025 02:00:00 PM, [address] [place] [address] [place], [address], Progress Notes * MACI RAMOS PDOB:1949 (74 yo M)Acc No.[id number]:01/06/2025 Patient: MACI COLINDRES :1950 A ge:74 Y S ex:Male Address:[address] [place] [address] [place], [address] Subjective: * Chief Complaints: * U TI * Medical History: * Surgical History: * Hospitalization/Major Diagno stic Procedure: * Medications: T akingCyanocobalamin 1000 MCG/ML Solution 1 mL Injection Ferrous Gluconate 324 (38 Fe) MG Tablet 1 tablet Orally daily Tamsulosin HCl 0.4 MG Capsule 1 capsule Orally teice a day Taking Cyanocobalamin 1000 MCG/ML Solution 1 mL Injection Taking Ferrous Gluconate 324 (38 Fe) MG Tablet 1 tablet Orally daily Taking Tamsulosin HCl 0.4 MG Capsule 1 capsule Orally teice a day DiscontinuedTamsulosin HCl 0.4 MG Capsule 1 capsule Orally Once a day Discontinued Tamsulosin HCl 0.4 MG Capsule 1 capsule Orally Once a day Objective: * Vitals: * Physical Examination: Assessment: Plan: * Treatment: * Procedure Codes: * true * Date: Generated for Kati aguilera/Jovana/Liban on: 1 07:53 AM EDT
--- OUTSIDE RECORDS SUMMARY | 2025-01-06 09:29 | XMS_ITS ---
Author Organization Jose G Dickerson III, MD Address [address] [facility] [place] [address] Care Team Providers Care Android Programmer Name Role Phone Dr. Jose G Dickerson III Primary Care Provider Medications Medication SIG (Take, Route, Frequency, Duration) Notes Start Date End Date Status Ciprofloxacin HCl 500 MG 1 tablet Orally every 12 hrs for 7 days 01/06/2025 01/13/2025 Active Social History Sex Assigned At : Social History Observation Description Sex Assigned At Male Encounters Encounter Location Date Provider Diagnosis Jose G Dickerson III, MD [address] [place] [address] [place] [address] 01/06/2025 Jose G Dickerson Plan Of Treatment Medication Medication Name Sig Start Date Stop Date Notes Ciprofloxacin HCl 500 MG 1 tablet Orally every 12 hrs for 7 days 01/06/2025 01/13/2025 Next Appt Details Provider Name:Jose G Dickerson , 03/15/2025 09:45:00 AM, [address] [place] [address] [place], [address], Provider Name:Jose G Dickerson , 04/12/2025 10:00:00 AM, [address] [place] [address] [place], [address], Provider Name:Jose G Dickerson , 04/19/2025 02:00:00 PM, [address] [place] [address] [place], [address], Progress Notes * MACI RAMOS PDOB:1949 (74 yo M)Acc No.[id number]:01/06/2025 Patient: MACI COLINDRES :1950 A ge:74 Y S ex:Male Address:[address] [place] [address], [phone] * Refills Start Ciprofloxacin HCl Tablet, 500 MG, Orally, 14 Tablet, 1 tablet, every 12 hrs, 7 days, Refills=0 * true * Date: Generated for Kati aguilera/Jovana/Cortneyitting on: 07:53 AM EDT
--- OUTSIDE RECORDS SUMMARY | 2025-01-18 05:45 | XMS_ITS ---
Author Organization Jose G Dickerson III, MD Address [address] [place] [address] Care Team Providers Care Medical Secretary Name Role Phone Dr. Jose G Dickerson III Primary Care Provider Allergies Allergen (clinical drug ingredient) Drug/Non Drug Allergy documented on EMR Reaction Allergy Type Onset Date Status No Known Drug Allergy Unknown Drug Allergy Active Results Component Value Reference Range Notes Urine Culture Reviewed date:01/22/2025 01:20:12 PM Interpretation: Performing Lab:[facility], [address] [place] [id number] Notes/Report: Urine Culture Report Result Urine Culture [...] Problem Status W/U Status Risk Notes Problem [id number] UTI symptoms (R39.9) Active confirmed Continues tto [...] Diagnosis Jose G Dickerson III, MD [address] [place] [address] [place] [address] 01/18/2025 Jose G Dickerson Prostate cancer C61 [...] him to smoking cessation programs at the [facility] and he will consider this. 01/18/2025 Essential hypertension (ICD-10 - I10) His blood pressure is stable at 126/68 and no change in his regimen was needed today.He was 134/61. 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 Sheriff for [...] G Dickerson , 03/15/2025 09:45:00 AM, [address] [place] [address] [place], [phone], Provider Name:Jose G Dickerson , 04/12/2025 10:00:00 AM, [address] [place] [address] [address], [place], [phone], Provider Name:Jose G Dickerson , 04/19/2025 02:00:00 PM, [address] [place] [address] [place], [phone], Procedure Notes * Category Sub-Category Detail Notes Injection Dose 1000 mg Route IM Site left arm Given by Dr. Dickerson Injected: B-12 (Cyanocobalamin ) ([facility] 02270-731-24) Progress Notes * MACI RAMOS PDOB:1949 (74 yo M)Acc No.[id number]:01/18/2025 Patient: MACI COLINDRES Provider: Kenan Dickerson MD :1950 A ge:74 Y S ex:Male Date:01/18/2025 Address:[address] [place] [address] [place], [id number] Subjective: * Chief Complaints: * B 12 [...] urgical drainage of scrotal abscess under anesthesia [facility] ataract Surgery, right eye ight L3-4 Laminotomy, Partial facetectomy and foraminotomy with use of microscope 11/17/2024 * Hospitalization/Major Diagno stic Procedure: C KD, CHF and HTN osterior Fusion Lumbar spine L3- L4 rainage of scrotal abscess. [facility] 03/2022No history inpt at with UTI [...] smoker ((1-9 cigs/day) H e lives in [place] [facility] [place]. He is not a Jain. He is and lives with his . [...] him to smoking cessation programs at the [facility] and he will consider this. 4 . E ssential hypertension - I10 N otes :His blood pressure is stable at 126/68 and no change in his regimen was needed today.He was 134/61. 5 . 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 Sheriff for [...] Procedures: I njection: Injected: B -12 (Cyanocobalamin) ([facility] 86383-654-85). Dose 1 000 mg. Route I M. Site l eft arm. Given by Tin Dickerson. * Procedure Codes: 9 6372 THER/PROPH/DIAG INJ, [id number] INJ VIT B-12 CYNOCOBLMN TO 1000 MCG [...] 01/18/2025 Generated for Kati aguilera/Jovana/eTransmitting on: 1 07:52 AM EDT History and Physical Notes * [...]
--- OUTSIDE RECORDS SUMMARY | 2025-02-21 07:52 | XMS_ITS | Patient Health Record ---
Author Organization Jose G Dickerson III, MD Address [address] [place] [address] [place] [address] Care Team Providers Care Rn Case Mgr Name Role Phone Dr. Jose G Dickerson III Primary Care Provider Allergies Allergen (clinical drug ingredient) Drug/Non Drug Allergy documented on EMR Reaction Allergy Type Onset Date Status No Known Drug Allergy Unknown Drug Allergy Active Results Component Value Reference Range Notes Urine Culture Reviewed date:01/22/2025 01:20:12 PM Interpretation: Performing Lab:[facility], [address] [place] [address] Notes/Report: Urine Culture Report Result Urine Culture > 100,000 cfu/ml Urine Culture Mixed bacterial daniel a characteristic of Urine Culture urogenital contamination. NM bone scan whole body Reviewed date:03/23/2024 09:17:18 AM Interpretation: Performing Lab: Notes/Report: [address] [address] Nuclear Medicine Report Signed Patient: Maci Conley MR#: [id number] : 1950 Acct:[id number] Age/Sex: 73 / M ADM Date: 02/24/24 Loc: RACHID Attending Dr: David Montana MD Ordering Physician: David Montana MD Date of Service: 02/24/24 Procedure(s): NM bone scan whole body Accession Number(s): [id number] cc: Jose G Dickerson MD; David Montana [...] by: Dusty Thompson MD 03/16/2024 12:32 PM [facility] Dictated By: Dusty Thompson MD Signed By: <Electronically signed by Dusty Thompson MD in OV> 03/16/24 1232 DD/ 1042 TD/TT: 02/24/24 1525 Motorboat Mechanic: PK [address] [address] Nuclear Medicine Report Signed Patient: Jose D Conley MR#: [id number] : 1950 Acct:[id number] Age/Sex: 73 / M ADM Date: 02/24/24 Loc: RACHID Attending Dr: Laura Montana MD Ordering Physician: David Montana MD Date of Service: 02/24/24 Procedure(s): NM bon e scan whole body Accession Number(s): [id number] cc: Jose G Dickerson MD; David Montana [...] by: Dusty Thompson MD 03/16/2024 12:32 PM [facility] Dictated By: Dusty Thompson MD Signed By: <Electronically signed by Dusty Thompson MD in OV> 03/16/24 1232 DD/ 1042 TD/TT: 02/24/24 1525 Motorboat Mechanic: SANJAY Complete Blood Count Auto Di ff Reviewed date:03/23/2024 09:17:17 AM Interpretation: Performing Lab:[facility], [address] [place] [phone] Notes/Report: White Blood Count 6.8 4.8-10.8 X10*3/uL [...] Panel Reviewed date:03/23/2024 09:17:18 AM Interpretation: Performing Lab:[address] [address] Notes/Report: Sodium 143 135-145 mmol/L Potassium 5.2 [...] Ferritin Reviewed date:03/23/2024 09:17:18 AM Interpretation: Performing Lab:[address] [address] Notes/Report: Ferritin 15 20-250 ng/mL Prostate Specific Antigen Reviewed date:03/23/2024 09:17:18 AM Interpretation: Performing Lab:[address], [place] [address] Notes/Report: Prostate Specific Antigen 0.13 <0.05-4.0 ng/mL PSA methodology: Dominguez Alinity i Chemiluminescent Microparticle Immunoassay (CMIA) Vitamin B12 Reviewed date:03/23/2024 09:17:18 AM Interpretation: Performing Lab:[facility], [address] [place] [phone] Notes/Report: Vitamin B12 665 200-900 pg/mL NORMAL 200-900 PG/ML INDETERMINATE 160-199 PG/ML DEFICIENT < 160 PG/ML XR mandible min 4V Reviewed date:04/24/2024 08:39:55 PM Interpretation: Performing Lab: Notes/Report: [address] [address] XRay Report Signed Patient: Maci Conley MR#: [id number] : 1950 Acct:[id number] Age/Sex: 74 / M ADM Date: 04/16/24 Loc: SEVEN Attending Dr: Jose G Dickerson MD Ordering Physician: Jose G Dickerson MD Date of Service: 04/16/24 Procedure(s): XR mandible min 4V Accession Number(s): [id number] cc: Jose G Dickerson MD EXAMINATION: XR [...] by: Davion Upton MD 04/18/2024 11:29 AM [facility] Dictated By: Davion Upton MD Signed By: <Electronically signed by Davion Upton MD in OV> 04/18/24 1129 DD/ TD/TT: 04/16/2455 Motorboat Mechanic: CATHY [address] [address] XRay Report Signed Patient: Jose D Conley MR#: [id number] : 1950 Acct:[id number] Age/Sex: 74 / M ADM Date: 04/16/24 Loc: HO.XRAY Attending Dr: Jose G Dickerson MD Ordering Physician: Jose G Dickerson MD Date of Service: 04/16/24 Procedure(s): XR man dible min 4V Accession Number(s): [id number] cc: Jose G Dickerson MD EXAMINATION: XR [...] by: Davion Upton MD 04/18/2024 11:29 AM [facility] Dictated By: Davion Upton MD Signed By: <Electronically signed by Davion Upton MD in OV> 04/18/24 1129 DD/ TD/TT: 04/16/2455 Motorboat Mechanic: CATHY Complete Blood Count Auto Di ff Reviewed date:07/01/2024 06:26:39 AM Interpretation: Performing Lab:[facility], [address] [place] [address] Notes/Report: White Blood Count 7.1 4.8-10.8 X10*3/uL [...] Panel Reviewed date:07/01/2024 06:26:39 AM Interpretation: Performing Lab:[facility], [address] [place] [address] Notes/Report: Sodium 142 135-145 mmol/L Potassium 5.1 [...] Ferritin Reviewed date:07/01/2024 06:26:39 AM Interpretation: Performing Lab:[facility], [address] [place] [address] Notes/Report: Ferritin 32 20-250 ng/mL Prostate Specific Antigen Reviewed date:07/01/2024 06:26:39 AM Interpretation: Performing Lab:[facility], [address] [place] [address] Notes/Report: Prostate Specific Antigen 0.12 <0.05-4.0 ng/mL PSA methodology: Dominguez Alinity i Chemiluminescent Microparticle Immunoassay (CMIA) Vitamin B12 Reviewed date:07/01/2024 06:26:39 AM Interpretation: Performing Lab:[facility], [address] [place] [address] Notes/Report: Vitamin B12 797 200-900 pg/mL NORMAL 200-900 PG/ML INDETERMINATE 160-199 PG/ML DEFICIENT < 160 PG/ML Gram stain Reviewed date:07/11/2024 06:13:00 AM Interpretation: Performing Lab:[facility], [address] [place] [phone] Notes/Report: Gram stain Gram stain results: Gram stain 2+ polys Gram stain 1+ Gram-positive cocci Routine Culture Reviewed date:07/11/2024 06:13:00 AM Interpretation: Performing Lab:[facility], [address] [place] [phone] Notes/Report: Routine Culture Report - external Routine Culture 1+ Mixed skin zander US abdominal aortic aneurysm Reviewed date:08/05/2024 03:27:00 PM Interpretation: Performing Lab: Notes/Report: [address] [address] Ultrasound Report Signed Patient: Maci Conley MR#: [id number] : 1950 Acct:[id number] Age/Sex: 74 / M ADM Date: 07/19/24 Loc: .US Attending Dr: Ricky Rendon MD Ordering Physician: Ricky Rendon MD Date of Service: 07/19/24 Procedure(s): US abdominal aortic aneurysm Accession Number(s): [id number] cc: Jose G Dickerson MD; Ricky Rendon [...] 07/21/24 1217 DD/ 1303 TD/TT: 07/19/24 1406 Motorboat Mechanic: [place] [address] Ultrasound Report Signed Patient: Jose D Conley MR#: [id number] : 1950 Acct:[id number] Age/Sex: 74 / M ADM Date: 07/19/24 Loc: . Attending Dr: Ricky Rendon MD Ordering Physician: Ricky Rendon MD Date of Service: 07/19/24 Procedure(s): US abdominal aortic aneurysm Accession Number(s): [id number] cc: Jose G Dickerson MD; Ricky Rendon [...] 07/21/24 1217 DD/ 1303 TD/TT: 07/19/24 1406 Motorboat Mechanic: US arterial duplex BI w/ RAUL Reviewed date:08/05/2024 03:27:00 PM Interpretation: Performing Lab: Notes/Report: [address] [address] Ultrasound Report Signed Patient: Maci Conley MR#: [id number] : 1950 Acct:[id number] Age/Sex: 74 / M ADM Date: 07/19/24 Loc: .US Attending Dr: Ricky Rendon MD Ordering Physician: Ricky Rendon MD Date of Service: 07/19/24 Procedure(s): US arterial duplex BI w/ RAUL Accession Number(s): [id number] cc: Jose G Dickerson MD; Ricky Rendon [...] 07/21/24 1217 DD/ 1303 TD/TT: 07/19/24 1406 Motorboat Mechanic: [place] [address] Ultrasound Report Signed Patient: Jose D Conley MR#: [id number] : 1950 Acct:[id number] Age/Sex: 74 / M ADM Date: 07/19/24 Loc: HO.US Attending Dr: Ricky Rendon MD Ordering Physician: Ricky Rendon MD Date of Service: 07/19/24 Procedure(s): US art erial duplex BI w/ RAUL Accession Number(s): [id number] cc: Jose G Dickerson MD; Ricky Rendon [...] 07/21/24 1217 DD/ 1303 TD/TT: 07/19/24 1406 Motorboat Mechanic: Urine Culture Reviewed date:08/11/2024 08:13:59 PM Interpretation: Performing Lab:[facility], [address] [place] [address] Notes/Report: O:ESCCOL Escherichia coli Urine Culture ESBL [...] date:08/05/2024 03:27:00 PM Interpretation: Performing Lab: Notes/Report: [address] [address] [address] Scan Report Signed Patient: Maci Conley MR#: [id number] : 1950 Acct:[id number] Age/Sex: 74 / M ADM Date: 08/04/24 Loc: .ED Attending Dr: Ordering Physician: Bettie Suarez DO Date of Service: 08/04/24 Procedure(s): CT abdomen pelvis wo IV con Accession Number(s): [id number] cc: Jose G Dickerson MD; Bettie Suarez DO Report Number: [id number]: Total DLP = 411.00 mGy-cm EXAMINATION: CT [...] Hugo Ralph MD 08/04/2024 01:15 PM EDT RP Dictated By: Hugo Callejas MD Signed By: <Electronically signed by Hugo Haider MD in OV> 08/04/24 1315 DD/ 1242 TD/TT: 08/04/24 1242 Motorboat Mechanic: [address] [address] [address] Scan Report Signed Patient: Jose D Conley MR#: [id number] : 1950 Acct:[id number] Age/Sex: 74 / M ADM Date: 08/04/24 Loc: HO.ED Attending Dr: Ordering Physician: Bettie Suarez DO Date of Service: 08/04/24 Procedure(s): CT abd omen pelvis wo IV con Accession Number(s): [id number] cc: Jose G Dickerson MD; Bettie Suarez [...] 08/04/24 1315 DD/ 1242 TD/TT: 08/04/24 1242 Motorboat Mechanic: MR thoracic spine wo/w con Reviewed date:08/05/2024 03:27:00 PM Interpretation: Performing Lab: Notes/Report: [address] [address] Magnetic Resonance Report Signed Patient: Maci Conley MR#: [id number] : 1950 Acct:[id number] Age/Sex: 74 / M ADM Date: 08/04/24 Loc: [facility]- Attending Dr: Violetta Tinsley MD Ordering Physician: Nathan Gastelum Date of Service: 08/04/24 Procedure(s): MR thoracic spine wo/w con Accession Number(s): [id number] cc: Nathan Gastelum; Jose G Dickerson MD [...] signed by Joby Lutz MD in OV> 08/04/249 DD/ TD/TT: 08/04/241817 Motorboat Mechanic: [address] [address] Magnetic Resonance Report Signed Patient: Jose D Conley MR#: [id number] : 1950 Acct:[id number] Age/Sex: 74 / M ADM Date: 08/04/24 Loc: [facility]: Violetta Tinsley MD Ordering Physician: Nathan Gastelum Date of Service: 08/04/24 Procedure(s): MR shaver spine wo/w con Accession Number(s): [id number] cc: Nathan Gastelum; Jose G Dickerson MD [...] in OV> 08/04/241818 DD/ 17 TD/TT: 08/04/241817 Motorboat Mechanic: JAIRO chest 1V Reviewed date:08/05/2024 03:27:00 PM Interpretation: Performing Lab: Notes/Report: [facility] [address] [place] [address] XRay Report Signed Patient: Maci Conley MR#: [id number] : 1950 Acct:[id number] Age/Sex: 74 / M ADM Date: 08/04/24 Loc: .ED Attending Dr: Ordering Physician: Bettie Suarez DO Date of Service: 08/04/24 Procedure(s): XR chest 1V Accession Number(s): [id number] cc: Jose G Dickerson MD; Bettie Suarez [...] Hugo Ralph MD 08/04/2024 12:12 PM EDT Dictated By: Hugo Callejas MD Signed By: <Electronically signed by Hugo Haider MD in OV> 08/04/24 1212 DD/ 1153 TD/TT: 08/04/24 1159 Motorboat Mechanic: [place] [address] XRay Report Signed Patient: Jose D Conley MR#: [id number] : 1950 Acct:[id number] Age/Sex: 74 / M ADM Date: 08/04/24 Loc: .ED Attending Dr: Ordering Physician: Bettie Suarez DO Date of Service: 08/04/24 Procedure(s): XR chest 1V Accession Number(s): [id number] cc: Jose G Dickerson MD; Bettie Suarez [...] 08/04/24 1212 DD/ 1153 TD/TT: 08/04/24 1159 Motorboat Mechanic: Complete Blood Count no Diff Reviewed date:08/05/2024 03:27:00 PM Interpretation: Performing Lab:[facility], [address] [place] [phone] Notes/Report: White Blood Count 9.6 4.8-10.8 X10*3/uL [...] Panel Reviewed date:08/05/2024 03:27:00 PM Interpretation: Performing Lab:[facility], [address] [place] [address] Notes/Report: Sodium 140 135-145 mmol/L Potassium 4.3 [...] Antigen Reviewed date:08/05/2024 03:27:00 PM Interpretation: Performing Lab:[address] [address] Notes/Report: Prostate Specific Antigen 0.30 <0.05-4.0 ng/mL PSA methodology: N[place]kope Alinity i Chemiluminescent Microparticle Immunoassay (CMIA) SARS-CoV2/FLU/RSV Reviewed date:08/05/2024 03:27:00 PM Interpretation: Performing Lab:[address] [address] Notes/Report: Influenza A PCR NEGATIVE Negative Influenza [...] by authorized laboratories. Testing performed on the [employer] 3D GeneXpert utilizing real-time RT-PCR. All SARS CoV2 and positive influenza A/B results are reported to [facility]. CT head/brain wo con Reviewed date:08/07/2024 07:20:28 AM Interpretation: Performing Lab: Notes/Report: [address] [address] [address] Scan Report Signed Patient: Maci Conley MR#: [id number] : 1950 Acct:[id number] Age/Sex: 74 / M ADM Date: 08/04/24 Loc: .S3 357-[address]: Bassem Mehta MD Ordering Physician: Bassem Mehta MD Date of Service: 08/05/24 Procedure(s): CT head/brain wo IV con Accession Number(s): [id number] cc: Jose G Dickerson MD; Bassem Mehta MD Report Number: [id number]: Total DLP = 718.00 mGy-cm CLINICAL HISTORY: [...] in OV> 08/05/242055 DD/ 55 TD/TT: 08/05/242055 Motorboat Mechanic: [place] [address] CT Scan Report Signed Patient: Jose D Conley MR#: [id number] : 1950 Acct:[id number] Age/Sex: 74 / M ADM Date: 08/04/24 Loc: .S3 357-[address]: Joel Mehta MD Ordering Physician: Bassem Mehta MD Date of Service: 08/05/24 Procedure(s): CT head/brain wo IV con Accession Number(s): [id number] cc: Jose G Dickerson MD; Bassem Mehta [...] in OV> 08/05/242055 DD/ 55 TD/TT: 08/05/242055 Motorboat Mechanic: XR chest 2V Reviewed date:08/05/2024 03:27:00 PM Interpretation: Performing Lab: Notes/Report: [address] [address] XRay Report Signed Patient: Maci Conley MR#: [id number] : 1950 Acct:[id number] Age/Sex: 74 / M ADM Date: 08/04/24 Loc: [facility] 357-[address]: Bassem Mehta MD Ordering Physician: Bassem Mehta MD Date of Service: 08/05/24 Procedure(s): XR chest 2V Accession Number(s): [id number] cc: Jose G Dickerson MD; Bassem Mehta [...] Dennison MD in OV> 08/05/24 1436 DD/ 49 TD/TT: 08/05/24 135 Motorboat Mechanic: [address] [address] XRay Report Signed Patient: Jose D Conley MR#: [id number] : 1950 Acct:[id number] Age/Sex: 74 / M ADM Date: 08/04/24 Loc: .S3 357-[address]: Joel Mehta MD Ordering Physician: Bassem Mehta MD Date of Service: 08/05/24 Procedure(s): XR chest 2V Accession Number(s): [id number] cc: Jose G Dickerson MD; Bassem Mehta [...] 08/05/24 1436 DD/ 1350 TD/TT: 08/05/24 135 Motorboat Mechanic: Eddie Sahu - Possible Hematolo gy Reviewed date:08/07/2024 07:20:28 AM Interpretation: Performing Lab:[facility], [address] [place] [phone] Notes/Report: Hold Lav - Possible Hematology SEE NOTE Specimen will be held untested for 8 hours. Call Hematology if testing is desired. Basic Metabolic Panel Reviewed date:08/07/2024 07:20:28 AM Interpretation: Performing Lab:[facility], [address] [place] [address] Notes/Report: Sodium 140 135-145 mmol/L Potassium 4.0 [...] Procalcitonin Reviewed date:08/07/2024 07:20:28 AM Interpretation: Performing Lab:[facility], [address] [place] [address] Notes/Report: Procalcitonin 14.76 Procalcitonin (PCT) Reference Range: [...] results from different laboratories and methodologies. References: [place] [employer]/Society of Critical Care Medicine Consensus Conference Committee. Definitions for sepsis and organ failure and guidelines for the use of innovative therapies in sepsis. Crit Care Med 1992;20(6):864-874. Precious B, Catina KL, Schazuleymaer H, et al. [...] summary for [facility] PCT SHARON. http://www.accessdat a.fda.fov/cdrh_docs/ reviews/X732018.pdf. Published May 2004. Accessed October 2016. Creatinine Urine Reviewed date:08/07/2024 07:20:28 AM Interpretation: Performing Lab:[facility], [address] [place] [address] Notes/Report: Creatinine Urine 77.77 Sodium Urine Random Reviewed date:08/07/2024 07:20:28 AM Interpretation: Performing Lab:[facility], [address] [place] [phone] Notes/Report: Sodium Urine Random 56.0 Legionella Ag Urine Reviewed date:08/11/2024 08:13:59 PM Interpretation: Performing Lab:[facility], [address] [place] [address] Notes/Report: Legionella Ag Urine Not Detected Not [...] or serogroups. THIS TEST WAS PERFORMED AT: [facility] [address] KAROL ARNDT MD,PHD MRSA Nasal Screen Reviewed date:08/07/2024 07:20:28 AM Interpretation: Performing Lab:[facility], [address] [place] [phone] Notes/Report: MRSA Nasal PCR NEGATIVE Negative SA Nasal PCR NEGATIVE Negative MRSA Interpretation SEE NOTE MRSA target DNA not detected; SA target DNA not detected. A MRSA NEGATIVE, SA NEGATIVE test result does not preclude MRSA or SA nasal colonization. Strep Pneumo Ag urine Reviewed date:08/11/2024 08:13:59 PM Interpretation: Performing Lab:[facility], [address] [place] [address] Notes/Report: Strep Pneumo Ag urine Not Detected Not Detected THIS TEST WAS PERFORMED AT: [facility] KAROL ARNDT MD,PHD US renal BI Reviewed date:08/07/2024 07:20:28 AM Interpretation: Performing Lab: Notes/Report: [address] [address] Ultrasound Report Signed Patient: Maci Conley MR#: [id number] : 1950 Acct:[id number] Age/Sex: 74 / M ADM Date: 08/04/24 Loc: HO.S3 357-[address]: aBssem Mehta MD Ordering Physician: Bassem Mehta MD Date of Service: 08/06/24 Procedure(s): US renal BI Accession Number(s): [id number] cc: Jose G Dickerson MD; Bassem Mehta [...] Castañeda MD in OV> 08/06/24 1229 DD/ TD/TT: 08/06/241227 Motorboat Mechanic: [address] [address] Ultrasound Report Signed Patient: Jose D Conley MR#: [id number] : 1950 Acct:[id number] Age/Sex: 74 / M ADM Date: 08/04/24 Loc: [facility] 357-[address]: Joel Mehta MD Ordering Physician: Bassem Mehta MD Date of Service: 08/06/24 Procedure(s): US renal BI Accession Number(s): [id number] cc: Jose G Dickerson MD; Bassem Mehta [...] in OV> 08/06/24 1229 DD/ 1228 TD/TT: 08/06/241227 Motorboat Mechanic: Basic Metabolic Panel Reviewed date:08/11/2024 08:13:59 PM Interpretation: Performing Lab:[facility], [address] [place] [phone] Notes/Report: Sodium 142 135-145 mmol/L Potassium 3.8 [...] Peptide Reviewed date:08/07/2024 07:20:28 AM Interpretation: Performing Lab:[facility], [address] [place] [phone] Notes/Report: B Type Natriuretic Peptide 191 <100 pg/mL Albumin Level Reviewed date:08/11/2024 08:13:59 PM Interpretation: Performing Lab:[facility], [address] [place] [address] Notes/Report: Albumin Level 2.6 3.5-5.0 g/dL Hold Lav - Possible Hematolo gy Reviewed date:08/11/2024 08:13:59 PM Interpretation: Performing Lab:[facility], [address] [place] [phone] Notes/Report: Hold Lav - Possible Hematology SEE NOTE Specimen will be held untested for 8 hours. Call Hematology if testing is desired. Basic Metabolic Panel Reviewed date:08/11/2024 08:13:59 PM Interpretation: Performing Lab:[facility], [address] [place] [phone] Notes/Report: Sodium 142 135-145 mmol/L Potassium 3.9 [...] Procalcitonin Reviewed date:08/11/2024 08:13:59 PM Interpretation: Performing Lab:[facility], [address] [place] [address] Notes/Report: Procalcitonin 3.54 Procalcitonin (PCT) Reference Range: [...] results from different laboratories and methodologies. References: [place] [employer]/Society of Critical Care [...] 510(k) substantial equivalence determination decision summary for [facility] PCT SHARON. http://www.accessdat a.fda.fov/cdrh_docs/ reviews/Z174895.pdf. Published May 2004. Accessed October 2016. MR lumbar spine wo/w con Reviewed date:08/11/2024 08:13:59 PM Interpretation: Performing Lab: Notes/Report: [address] [address] Magnetic Resonance Report Signed Patient: Maci Conley MR#: [id number] : 1950 Acct:[id number] Age/Sex: 74 / M ADM Date: 08/04/24 Loc: HO.S3 357-[address]: Violetta Tinsley MD Ordering Physician: Bassem Mehta MD Date of Service: 08/08/24 Procedure(s): MR lumbar spine wo/w con Accession Number(s): [id number] cc: Jose G Dickerson MD; Bassem Mehta [...] 08/09/24 0821 DD/ 1440 TD/TT: 08/08/24 1520 Motorboat Mechanic: [place] [address] Magnetic Resonance Report Signed Patient: Jose D Conley MR#: [id number] : 1950 Acct:[id number] Age/Sex: 74 / M ADM Date: 08/04/24 Loc: .S3 357-[address]: Violetta Tinsley MD Ordering Physician: Bassem Mehta MD Date of Service: 08/08/24 Procedure(s): MR lum bar spine wo/w con Accession Number(s): [id number] cc: Jose G Dickerson MD; Bassem Mehta [...] 08/09/24 0821 DD/ 1440 TD/TT: 08/08/24 1520 Motorboat Mechanic: Complete Blood Count Auto Di ff Reviewed date:09/27/2024 01:57:42 PM Interpretation: Performing Lab:[facility], [address] [place] [phone] Notes/Report: White Blood Count 9.7 4.8-10.8 X10*3/uL [...] Panel Reviewed date:09/27/2024 01:57:42 PM Interpretation: Performing Lab:[address] [address] Notes/Report: Sodium 141 135-145 mmol/L Potassium 5.3 [...] Antigen Reviewed date:09/27/2024 01:57:42 PM Interpretation: Performing Lab:[address] [address] Notes/Report: Prostate Specific Antigen 0.23 <0.05-4.0 ng/mL PSA methodology: [employer] Alinity i Chemiluminescent Microparticle Immunoassay (CMIA) Testosterone, Total Reviewed date:09/27/2024 01:57:42 PM Interpretation: Performing Lab:[address] [address] Notes/Report: Testosterone, Total 2 250-1100 ng/dL Men with clinically significant hypogonadal symptoms and testosterone values repeatedly in the range of the 200-300 ng/dL or less, may benefit from testosterone treatment after adequate risk and benefits counseling. For additional information, please refer to http://education.[employer].Bawte/fa q/ TotalTestosteroneLCM [email or web address] (This link is being provided for informational/ educational purposes only.) This test was developed and its analytical performance characteristics have been determined by [employer] [place], [place]. It has not been cleared or approved by the U.S. Food and Drug Administration. This assay has been validated pursuant to the CLIA regulations and is used for clinical purposes. THIS TEST WAS PERFORMED AT: [facility] [facility] [employer] [address] KAROL ARNDT MD,PHD NM lamar perf SPECT rest & str Reviewed date:10/16/2024 07:54:15 AM Interpretation: Performing Lab: Notes/Report: [address] [address] Nuclear Medicine Report Signed Patient: Maci Conley MR#: [id number] : 1950 Acct:[id number] Age/Sex: 74 / M ADM Date: 09/29/24 Loc: [facility] Attending Dr: Jose G Dickerson MD Ordering Physician: Jose G Dickerson MD Date of Service: 09/29/24 Procedure(s): NM lamar perf SPECT rest str Accession Number(s): [id number] cc: Jose G Dickerson MD Lexiscan Myocardial [...] 10/04/24 1113 DD/ 1030 TD/TT: 10/03/24 1355 Motorboat Mechanic: [place] [address] Nuclear Medicine Report Signed Patient: Jose D Conley MR#: [id number] : 1950 Acct:[id number] Age/Sex: 74 / M ADM Date: 09/29/24 Loc: [facility] Attending Dr: Jose G Dickerson MD Ordering Physician: Jose G Dickerson MD Date of Service: 09/29/24 Procedure(s): NM lamar perf SPECT rest str Accession Number(s): [id number] cc: Jose G Dickerson MD Lexiscan Myocardial perfusion study Indication: Preoperative cardiac evaluation Technique: The patient was brou t in for a Lexiscan perfusion study on 09/29/2024 and was injected 0.4 mg of Lexiscan intravenously. Within a minute of this injection 25 mC i of sestamibi was given intravenously. Images were obtained using the Vivaty gamma camera interlaced with the gating device. [...] 10/04/2024 11:13 AM EDT RP Workstatio n: [id number] Dictated By: Marques Patel MD Signed By: <Electronically signed by Marques Patel MD in OV> 10/04/24 1113 DD/ 1030 TD/TT: 10/03/24 1355 Motorboat Mechanic: XR lumbar spine 2-3V Reviewed date:10/16/2024 07:54:15 AM Interpretation: Performing Lab: Notes/Report: [address] [address] Triny Report Signed Patient: Maci Conley MR#: [id number] : 1950 Acct:[id number] Age/Sex: 74 / M ADM Date: 10/13/24 Loc: SEVEN Attending Dr: Blair Plata MD, PhD Ordering Physician: Blair Plata MD, PhD Date of Service: 10/13/24 Procedure(s): XR lumbar spine 2-3V Accession Number(s): [id number] cc: Jose G Dickerson MD; Blair Plata [...] signed by Hugo Haider MD in OV> 10/13/24 0959 DD/ 0940 TD/TT: 10/13/24 0950 Motorboat Mechanic: [place] [address] XRay Report Signed Patient: Jose D Conley MR#: [id number] : 1950 Acct:[id number] Age/Sex: 74 / M ADM Date: 10/13/24 Loc: HO.JAIROAY Attending Dr: Susan Plata MD, PhD Ordering Physician: Blair Plata MD, PhD Date of Service: 10/13/24 Procedure(s): XR lum bar spine 2-3V Accession Number(s): [id number] cc: Jose G Dickerson MD; Blair Plata [...] MD in OV> 10/13/2459 DD/ 9 TD/TT: 10/13/24949 Motorboat Mechanic: Complete Blood Count no Diff Reviewed date:11/04/2024 06:58:53 PM Interpretation: Performing Lab:[facility], [address] [place] [address] Notes/Report: White Blood Count 5.9 4.8-10.8 X10*3/uL [...] Panel Reviewed date:11/04/2024 06:58:53 PM Interpretation: Performing Lab:[facility], [address] [place] [address] Notes/Report: Sodium 139 135-145 mmol/L Potassium 5.4 [...] date:11/18/2024 11:59:55 AM Interpretation: Performing Lab: Notes/Report: [place] [address] Fluoroscopy Report Signed Patient: Maci Conley MR#: [id number] : 1950 Acct:[id number] Age/Sex: 74 / M ADM Date: 11/17/24 Loc: [facility] Attending Dr: Blair Plata MD, PhD Ordering Physician: Blair Plata MD, PhD Date of Service: 11/17/24 Procedure(s): FL guidance in OR Accession Number(s): [id number] cc: Jose G Dickerson MD; Blair Plata [...] G Dennison MD 11/17/2024 12:19 PM EDT RP Dictated By: Jose G Dennison MD Signed By: <Electronically signed by Jose G Dennison MD in OV> 11/17/241218 DD/ 1100 TD/TT: 11/17/24 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: [place] [address] Fluoroscopy Report Signed Patient: Jose D Conley MR#: [id number] : 1950 Acct:[id number] Age/Sex: 74 / M ADM Date: 11/17/24 Loc: HO.SSS Attending Dr: Susan Plata MD, PhD Ordering Physician: Blair Plata MD, PhD Date of Service: 11/17/24 Procedure(s): YARITZA wadsworth in OR Accession Number(s): [id number] cc: Jose G Dickerson MD; Blair Plata [...] G Dennison MD 11/17/2024 12:19 PM EDT RP Dictated By: Jose G Dennison MD Signed By: <Electronically signed by Jose G Dennison MD in OV> 11/17/24 121 DD/ 1100 TD/TT: 11/17/24 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 1) Referral Organization Jose G Dickerson III, MD Referring Provider First Name Jose G Referring Provider Last Name Jayla Referring Provider Speciality Internal M edicine [facility] Referred Provider [place] [facility], Gastroenterology Referred Address [address] [place] [address],[place], [place],[id number],[place] Referred Provider Specialty Gastroentero logluna General Notes Elvira Castle 08/18/2024 04:05:39 PM > Referral was faxed. 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 He remains under the care of urology receiving androgen deprivation therapy. Problem 530328371 B12 deficiency (E53.8) Active confirmed He received 100 0 mcg of vitamin B12 by intramuscular injection in the left arm without difficulty and tolerated it well. 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 I will continue. We will begin receiving denosumab. Problem 50472138 Essential hypertension (I10) Active confirmed His blood press ure is at its target range. No change in his regimen as necessary. Follow-up was arranged. Problem 18687733 Tobacco dependence (F17.200) Active confirmed I have discusse d with him all of the long-term consequences of smoking and he is well aware of them. I have offered to refer him to smoking cessation programs at the [facility] and he will consider this. Problem 70077887 Pernicious anemia (D51.0) Active confirmed He received 1 000 mcg of vitamin B12by intramuscular injection in the left armToday without difficulty. Problem 23889156 Iron deficiency anemia, unspecified iron deficiency anemia type (D50.9) Active confirmed He continues on oral iron therapy. Problem 630743187 Stage 3 chronic kidney disease (N18.3) Active confirmed His BUN and creatinine remain elevated. He remains under the care of nephrology this point. He was encouraged to hydrate aggressively. Problem 49344891 Age-related cataract of both eyes, unspecified age-related cataract type (H25.9) Active confirmed He is medically cleared for bilateral cataract extraction with a normal risk of a man his age. There is no contraindication to surgery. Problem 821952077 Macular degeneration of both eyes, unspecified type (H35.30) Active confirmed He will contin ue to receive his bevacizumab injections from his wood fuel pelletizer.He has been referred to Dr. Sheriff for additional evaluation of his vision. Problem Peripheral arterial occlusive disease (265238648) Peripheral arterial occlusive disease (I77.9) Active confirmed There is been n o change in his claudication or peripheral arterial disease. He is up-to-date with his visits to the vascular surgeon. No open areas on his lower extremities. Problem 494211733 UTI symptoms (R39.9) Active confirmed Continues tto complain of dysuria. A urine culture was requested. Clinically he did not appear to have an infection. Problem Chronic kidney disease stage 3 (disorder) (929174381) Chronic kidney disease, stage 3 unspecified (N18.30) Active confirmed His GFR is 43. His BUN is lately. No change in his regimen as needed. Vital Signs Heart Rate 85 /min 02/15/2025 Temperature 97.1 degrees Fahrenheit 02/15/2025 Respiratory Rate 15 /min 02/15/2025 Oximetry 99 % 02/15/2025 Blood pressure diastolic 60 mm Hg 02/15/2025 Height 69 in 02/15/2025 Blood pressure systolic 119 mm Hg 02/15/2025 Weight 158 lbs 02/15/2025 BMI 23.33 kg/m2 02/15/2025 Encounters Encounter Location Date Provider Diagnosis Jose G Dickerson III, MD [address] [place] [address] [place] [address] 2024 Jose G Dickerson Essential hypertensi on I10 ; Prostate cancer C61 ; Iron deficiency anemia, unspecified iron deficiency anemia type D50.9 ; Vitamin B12 deficiency E53.8 ; Stage 3 chronic kidney disease N18.3 ; Tobacco dependence F17.200 ; Overweight E66.3 and Peripheral arterial occlusive disease I77.9 Jose G Dickerson III, MD [address] [place] [address] [place] [address] 03/30/2024 Jose G Dickerson Essential hypertensi on I10 ; Prostate cancer C61 ; Stage 3 chronic kidney disease N18.3 ; Tobacco dependence F17.200 ; Iron deficiency anemia, unspecified iron deficiency anemia type D50.9 ; Vitamin B12 deficiency E53.8 ; Macular degeneration of both eyes, unspecified type H35.30 and Peripheral arterial occlusive disease I77.9 Jose G Dickerson III, MD [address] [place] [address] [place] [address] 04/15/2024 Jose G Dickerson Essential hypertensi on [...] deficiency E53.8 Jose G Dickerson III, MD [address] [place] [address] [place] [address] 04/28/2024 Jose G Dickerson Essential hypertensi on I10 ; Prostate cancer C61 ; Stage 3 chronic kidney disease N18.3 ; Tobacco dependence F17.200 ; Iron deficiency anemia, unspecified iron deficiency anemia type D50.9 ; Peripheral arterial occlusive disease I77.9 ; Macular degeneration of both eyes, unspecified type H35.30 and Pernicious anemia D51.0 Jose G Dickerson III, MD [address] [place] [address] [place] [address] 06/08/2024 Jose G Dickerson Essential hypertensi on I10 ; Prostate cancer C61 ; Iron deficiency anemia, unspecified iron deficiency anemia type D50.9 ; Macular degeneration of both eyes, unspecified type H35.30 ; Stage 3 chronic kidney disease N18.3 ; Peripheral arterial occlusive disease I77.9 ; Tobacco dependence F17.200 ; Overweight E66.3 and Pernicious anemia D51.0 Jose G Dickerson III, MD [address] [place] [address] [place] [address] 07/07/2024 Jose G Dickerson Essential hypertensi on [...] anemia D51.0 Jose G Dickerson III, MD [address] [place] [address] [place] [address] 07/12/2024 Jose G Dickerson Essential hypertensi on [...] Furuncle L02.92 Jose G Dickerson III, MD [address] [place] [address] [place] [address] 08/26/2024 Jose G Norrisrne Prostate cancer C61 ; Essential hypertension I10 ; Macular degeneration of both eyes, unspecified type H35.30 ; Stage 3 chronic kidney disease N18.3 ; Tobacco dependence F17.200 ; Peripheral arterial occlusive disease I77.9 ; 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, initial encounter S24.114A ; Pernicious anemia D51.0 and Overweight E66.3 Jose G Dickerson III, MD [address] [place] [address] [place] [address] 09/27/2024 Jose G Dickerson Prostate cancer C61 [...] anemia D51.0 Jose G Dickerson III, MD [address] [place] [address] [place] [address] 10/12/2024 Jose G Dickerson Prostate cancer C61 [...] clearance Z01.818 Jose G Dickerson III, MD [address] [place] [address] [place] [address] 10/26/2024 Jose G Dickerson Prostate cancer C61 ; [...] disc M51.26 Jose G Dickerson III, MD [address] [place] [address] [place] [address] 11/23/2024 Jose G Hutrne Prostate cancer C61 ; Tobacco dependence F17.200 ; Essential hypertension I10 ; Macular degeneration of both eyes, unspecified type H35.30 ; Stage 3 chronic kidney disease N18.3 ; Iron deficiency anemia, unspecified iron deficiency anemia type D50.9 and Herniated lumbar intervertebral disc M51.26 Jose G Dickerson III, MD [address] [place] [address] [place] [address] 12/02/2024 Jose G Hurtne Prostate cancer C61 ; Essential hypertension I10 ; Stage 3 chronic kidney disease N18.3 ; Tobacco dependence F17.200 ; Peripheral arterial occlusive disease I77.9 ; Vitamin B12 deficiency E53.8 ; Pernicious anemia D51.0 ; Macular degeneration of both eyes, unspecified type H35.30 and Continuous leakage of urine N39.45 Jose G Dickerson III, MD [address] [place] [address] [place] [address] 12/21/2024 Jose G Norrisrne Prostate cancer C61 ; Tobacco dependence F17.200 [...] anemia D51.0 Jose G Dickerson III, MD [address] [place] [address] [place] [address] 01/18/2025 Jose G Dickerson Prostate cancer C61 ; UTI symptoms R39.9 ; Tobacco dependence F17.200 ; Essential hypertension I10 ; Macular degeneration of both eyes, unspecified type H35.30 ; Stage 3 chronic kidney disease N18.3 and Pernicious anemia D51.0 Jose G Dickerson III, MD [address] [place] [address] [place] [address] 02/15/2025 Jose G Norrisrne Prostate cancer C61 ; Iron deficiency anemia, unspecified iron deficiency anemia type D50.9 ; Essential hypertension I10 ; B12 deficiency E53.8 ; UTI symptoms R39.9 ; Chronic kidney disease, stage 3 unspecified N18.30 ; Macular degeneration of both eyes, unspecified type H35.30 and Stage 3 chronic kidney disease N18.3 Jose G Dickerson III, MD [address] [place] [address] [place] [address] 08/15/2024 Jose G Dickerson III, MD [address] [place] [address] [place] [address] 08/22/2024 Jose G Dickerson III, MD [address] [place] [address] [place] [address] 08/26/2024 Jose G Dickerson III, MD [address] [place] [address] [place] [address] 09/19/2024 Jose G Dickerson III, MD [address] [place] [address] [place] [address] 09/28/2024 Jose G Dickerson III, MD [address] [place] [address] [place] [address] 10/18/2024 Jose G Dickerson III, MD [address] [place] [address] [place] [address] 10/28/2024 Jose G Dickerson III, MD [address] [place] [address] [place] [address] 10/28/2024 Jose G Dickerson III, MD [address] [place] [address] [place] [address] 12/12/2024 Jose G Dickerson III, MD [address] [place] [address] [place] [address] 01/06/2025 Jose G Dickerson III, MD [address] [place] [address] [place] [address] 01/06/2025 Jose G Dickerson Assessments Encounter Date Diagnosis (ICD Code) Assessment Notes Treat ment Notes Treatment Clinical Notes 2024 Prostate cancer (ICD-10 - C61) His [...] him to smoking cessation programs at the [facility] and he will consider this. 12/02/2024 Prostate [...] him to smoking cessation programs at the [facility] and he will consider this. 01/18/2025 Prostate cancer (ICD-10 - C61) His [...] prescribed today. A urine culture is pending. 02/15/2025 Prostate cancer (ICD-10 - C61) His PSA remains low indicating control of disease. He remains under the care of urology receiving androgen deprivation therapy. 02/15/2025 Iron deficiency anemia, unspecified iron deficiency anemia type (ICD-10 - D50.9) He continues on oral iron therapy. 2024 Iron deficiency anemia, unspecified iron deficiency [...] to receive his bevacizumab injections from his wood fuel pelletizer. 08/26/2024 Macular degeneration of both eyes, unspecified type (ICD-10 - H35.30) He will continue to receive his bevacizumab injections from his wood fuel pelletizer. 09/27/2024 Essential hypertension (ICD-10 - I10) His blood pressure is stable and no change in his regimen was needed today. 10/12/2024 Macular degeneration of both eyes, unspecified type (ICD-10 - H35.30) He will continue to receive his bevacizumab injections from his wood fuel pelletizer. 10/26/2024 Macular degeneration of both eyes, unspecified type (ICD-10 - H35.30) He will continue to receive his bevacizumab injections from his wood fuel pelletizer. 11/23/2024 Essential hypertension (ICD-10 - I10) His [...] regimen was needed today.He was 134/61. 01/18/2025 Tobacco dependence (ICD-10 - F17.200) I have discussed with him all of the long-term consequences of smoking and he is well aware of them. I have offered to refer him to smoking cessation programs at the [facility] and he will consider this. 02/15/2025 Essential hypertension (ICD-10 - I10) His blood pressure is at its target range. No change in his regimen as necessary. Follow-up was arranged. 2024 Vitamin B12 deficiency (ICD-10 - E53.8) [...] him to smoking cessation programs at the [facility] and he will consider this. 04/15/2024 Tobacco dependence (ICD-10 - F17.200) I have discussed with him all of the long-term consequences of smoking and he is well aware of them. I have offered to refer him to smoking cessation programs at the [facility] and he will consider this. 04/28/2024 Tobacco dependence (ICD-10 - F17.200) I have discussed with him all of the long-term consequences of smoking and he is well aware of them. I have offered to refer him to smoking cessation programs at the [facility] and he will consider this. 06/08/2024 Macular degeneration of both eyes, unspecified type (ICD-10 - H35.30) He will continue to receive his bevacizumab injections from his wood fuel pelletizer. 07/07/2024 Iron deficiency anemia, unspecified iron deficiency [...] to receive his bevacizumab injections from his wood fuel pelletizer. 12/02/2024 Tobacco dependence (ICD-10 - F17.200) I have discussed with him all of the long-term consequences of smoking and he is well aware of them. I have offered to refer him to smoking cessation programs at the [facility] and he will consider this. 12/21/2024 Macular degeneration of both eyes, unspecified type (ICD-10 - H35.30) He will continue to receive his bevacizumab injections from his wood fuel pelletizer.He has been referred to Dr. Sheriff for additional evaluation of his vision. 01/18/2025 Essential hypertension (ICD-10 - I10) His blood pressure is stable at 126/68 and no change in his regimen was needed today.He was 134/61. 02/15/2025 B12 deficiency (ICD-10 - E53.8) He received 1000 mcg of vitamin B12 by intramuscular injection in the left arm without difficulty and tolerated it well. 2024 Stage 3 chronic kidney disease (ICD-10 [...] to receive his bevacizumab injections from his wood fuel pelletizer. 07/12/2024 Iron deficiency anemia, unspecified iron deficiency [...] him to smoking cessation programs at the [facility] and he will consider this. 09/27/2024 Stage [...] He was encouraged to hydrate aggressively. 01/18/2025 Macular degeneration of both eyes, unspecified type (ICD-10 - H35.30) He will continue to receive his bevacizumab injections from his wood fuel pelletizer.He has been referred to Dr. Sheriff for additional evaluation of his vision. 02/15/2025 UTI symptoms (ICD-10 - R39.9) Continues tto complain of dysuria. A urine culture was requested. Clinically he did not appear to have an infection. 2024 Tobacco dependence (ICD-10 - F17.200) I have discussed with him all of the long-term consequences of smoking and he is well aware of them. I have offered to refer him to smoking cessation programs at the [facility] and he will consider this. 03/30/2024 Vitamin [...] him to smoking cessation programs at the [facility] and he will consider this. 10/26/2024 Complete [...] surgery. This value will be followed carefully. 01/18/2025 Stage 3 chronic kidney disease (ICD-10 - N18.3) His BUN and creatinine remain elevated. He remains under the care of nephrology this point. He was encouraged to hydrate aggressively. 02/15/2025 Chronic kidney disease, stage 3 unspecified (ICD-10 - N18.30) 2024 Overweight (ICD-10 - E66.3) He is only very slightly overweight. At this point. I recommended weight stabilization through healthy diet and regular exercise. 03/30/2024 Macular degeneration of both eyes, unspecified type (ICD-10 - H35.30) He will continue to receive his bevacizumab injections from his wood fuel pelletizer. 04/15/2024 Macular degeneration of both eyes, unspecified type (ICD-10 - H35.30) He will continue to receive his bevacizumab injections from his wood fuel pelletizer. 04/28/2024 Macular degeneration of both eyes, unspecified type (ICD-10 - H35.30) He will continue to receive his bevacizumab injections from his wood fuel pelletizer. 06/08/2024 Tobacco dependence (ICD-10 - F17.200) I have discussed with him all of the long-term consequences of smoking and he is well aware of them. I have offered to refer him to smoking cessation programs at the [facility] and he will consider this. 07/07/2024 Complete [...] him to smoking cessation programs at the [facility] and he will consider this. 08/26/2024 Complete [...] him to smoking cessation programs at the [facility] and he will consider this. 10/12/2024 Peripheral [...] No open areas on his lower extremities. 01/18/2025 Pernicious anemia (ICD-10 - D51.0) He received 1000 mcg of vitamin B12by intramuscular injection in the left armToday without difficulty. 02/15/2025 Macular degeneration of both eyes, unspecified type (ICD-10 - H35.30) He will continue to receive his bevacizumab injections from his wood fuel pelletizer.He has been referred to Dr. Sheriff for additional evaluation of his vision. 2024 Peripheral arterial occlusive disease (ICD-10 - [...] him to smoking cessation programs at the [facility] and he will consider this. 12/02/2024 Macular degeneration of both eyes, unspecified type (ICD-10 - H35.30) He will continue to receive his bevacizumab injections from his wood fuel pelletizer. 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 I will continue. We will begin receiving denosumab. 02/15/2025 Stage 3 chronic kidney disease (ICD-10 - N18.3) His BUN and creatinine remain elevated. He remains under the care of nephrology this point. He was encouraged to hydrate aggressively. 04/15/2024 B12 deficiency (ICD-10 - E53.8) He [...] him to smoking cessation programs at the [facility] and he will consider this. 07/12/2024 Furuncle [...] Treatment Pending Test Test Name Order Date PROFILE, RANDOM (COMPREHENSIVE METABOLIC ) 02/15/2025 PSA, TOTAL 02/15/2025 CBC w DIFF 02/15/2025 US LEG UNILATERAL ARTERY 05/30/2021 US LEG UNILATERAL ARTERY 06/05/2021 Ferritin 02/15/2025 Vitamin B12 02/15/2025 Urine Culture 02/15/2025 ECG 12 lead EKG 09/27/2024 NUC Stress Test 09/27/2024 Next Appt Details Provider Name:Jose G Dickerson , 03/15/2025 09:45:00 AM, [address] [place] [address] [address] [place], [place], [address], Provider Name:Jose G Dickerson , 04/12/2025 10:00:00 AM, [address] [place] [address] STE[address] [place], [place], [address], Provider Name:Jose G Dickerson , 04/19/2025 02:00:00 PM, [address] [facility] STEPHANIE WALDEN, [place], [phone], Insurance Providers Payer Name Payer Address Payer Phone Subscriber Number Group Number Insured Name Patient Relationship to Insured Coverage Start Date Coverage End Date MEDICARE NGS [address] [place] [address] [id number] MACI BARAHONA Self - patient is the insured [employer] [address] [place], [place] [phone] [id number] MACI BARAHONA Self - patient is [...] Surgical drainage of scrotal abscess under anesthesia [facility] 03/2022 history of back surgery 02/2022 cryoablation of the prostate 2014 excision draining scrotal sinus 2013 incision and drainage left lateral thigh abscess 2008 Hospitalization History Reason Date(Month/Year) inpt at with UTI 08/2024 No history Drainage of scrotal abscess. [facility] 03/2022 Posterior Fusion Lumbar spine L3- L4 2021 CKD, CHF and HTN 08/2021
--- OUTSIDE RECORDS SUMMARY | 2025-02-21 07:53 | XMS_ITS | Clinical Summary ---
Author Organization [facility] Address [address] [place] [address] Phone Care Team Providers Care State Manager Name Role Phone Jose G Dickerson MD Primary Care Provider [phone] Social History Tobacco Use Types Packs/Day Years [...] & B Member Subscriber Plan / Payer ( fective 2014-Present) Name:Keshav Ramos Member ID:[id number] Relation to Subscriber:Self Name:Keshav Ramos Subscriber ID:[id number] Payer ID:[id number] Group ID:Not on file Type:Medicare Address: [employer] [address] Care Teams State Manager Relationship Specialty Start Date End Date Jose G Dickerson MD [address] [place] [address] [place] [address] PCP - General Medical Oncology 08/19/24 Additional Source Comments The information contained in this document represents components of the legal health record. It is not the complete legal health record.[facility]
--- OUTSIDE RECORDS SUMMARY | 2025-02-21 07:53 | XMS_ITS | Clinical Summary ---
Author Organization [facility] Address [address] [place] [address] Phone Care Team Providers Care Living Supervisor Name Role Phone Jose G Dickerson MD Primary Care Provider [phone] Allergies No known active allergies Medications No [...] patient's age to complete this topic Insurance [facility] [place] [id number] [facility] Medicare Care Teams Living Supervisor Relationship Specialty Start Date End Date Jose G Dickerson MD [address] [place] [address] [phone] [place] PCP - General Medical Oncology 04/05/21
--- OUTSIDE RECORDS SUMMARY | 2025-02-21 07:53 | XMS_ITS | Encounter Summary ---
Author Organization [facility] Address [address] [place] [address] Phone Care Team Providers Care Tobacco Primer Machine Operator Name Role Phone Jose G Dickerson MD Primary Care Provider [phone] Reason for Visit * Reason Comments Med Refill Encounter Details Date Type Department Care Team (Late st Contact Info) Description 02/11/2023 Refill [facility] [address] [place] [phone] Jon Ma MD Social History Tobacco Use [...] on filedocumented in this encounter Care Teams Tobacco Primer Machine Operator Relationship Specialty Start Date End Date Jose G Dickerson MD [address] [place] [phone] [phone] [facility] - General Medical Oncology 04/05/21 documented as of this encounter
[2025-02-21 08:07] LABS: MANUAL DIFF FLAG NO
[2025-02-21 09:13] LABS: Hematocrit 31.4 % (42.0-52.0); Hemoglobin 9.4 g/dl (14.0-18.0); Imm Gran Abs Auto 0.02 X10*3/uL (0.00-0.03); Imm Gran Pct Auto 0.3 % (0.0-0.4); Lymphocytes Absolute Auto 1.2 X10*3/uL (1.2-4.9); Mean Corpuscular HGB Conc 29.9 g/dl (31.0-36.0); Mean Corpuscular Hemoglobin 28.2 pg (27.0-33.0); Mean Corpuscular Volume 94.3 fL (80.0-98.0); NRBC Abs Auto 0.000 X10*3/uL (0.0-0.012); NRBC Pct Auto 0.0 /100WBC (0.0-0.2); Platelet Count 257 X10*3/uL (160-400); Red Blood Count 3.33 X10*6/uL (4.60-5.80); White Blood Count 6.1 X10*3/uL (4.8-10.8)
[2025-02-21 10:59] LABS: Prostate Specific Antigen < 0.10 ng/mL (<0.05-4.0)
[2025-02-21 11:04] LABS: Vitamin B12 1302 pg/mL (200-900)
[2025-02-21 11:39] LABS: Alanine Aminotransferase 10 U/L (0-40); Albumin Level 4.1 g/dL (3.5-5.0); Alkaline Phosphatase 66 U/L (39-117); Anion Gap 11 (12-20); Aspartate Amino Transferase 16 U/L (5-37); Blood Urea Nitrogen 39 mg/dL (9-16); Calcium 9.2 mg/dL (8.4-10.2); Carbon Dioxide 27 mmol/L (22-29); Chloride 110 mmol/L (96-108); Estimated Glomerular Filt Rate 27; Potassium 4.5 mmol/L (3.3-5.1); Sodium 143 mmol/L (135-145); Total Protein 6.8 g/dL (6.5-8.0)
[2025-02-21 12:49] LABS: Ferritin 18 ng/mL (20-250)
== END 2025-02-21 07:46 | disposition home or self-care (01) ==
LOC: HO.LAB 07:45
PROVIDERS: Absent Provider Urology; PCP Internal Medicine Medical Oncology; Referring Provider Internal Medicine Hypertension Specialist; Visit Provider Internal Medicine Medical Oncology
DX: C61 Malignant neoplasm of prostate (principal); C79.51 Secondary malignant neoplasm of bone; D50.9 Iron deficiency anemia, unspecified; I12.9 Hypertensive chronic kidney disease with stage 1 through stage 4 chronic kidney disease, or unspecified chronic kidney disease; N18.30 Chronic kidney disease, stage 3 unspecified; E53.8 Deficiency of other specified B group vitamins; Z12.5 Encounter for screening for malignant neoplasm of prostate; R39.9 Unspecified symptoms and signs involving the genitourinary system
CPT/HCPCS: 36415; 80053; 82607; 82728; 84153; 84403; 85025

== ENCOUNTER 2025-03-01 10:02 | Outpatient (AMB) | payer MEDICARE, SELFPAY ==
--- OUTSIDE RECORDS SUMMARY | 2024-10-28 10:25 | XMS_ITS ---
Author Organization Jose G Dickerson III, MD Address [address] [place] [address] [place] [address] Care Team Providers Care Advice Nurse Name Role Phone Dr. Jose G Dickerson III Primary Care Provider [phone] REASON FOR VISIT Rx Request Social History Sex Assigned At : Social History Observation Description Sex Assigned At Male Encounters Encounter Location Date Provider Diagnosis Jose G Dickerson III, MD [address] [place] [address] [place] [address] 10/28/2024 Jose G Dickerson Plan Of Treatment Next Appt Details Provider Name:Jose G Dickerson , 03/15/2025 09:45:00 AM, [address] [place] [address] [place], [address], Provider Name:Jose G Dickerson , 04/12/2025 10:00:00 AM, [address] [place] [address] [place], [address], Provider Name:Jose G Dickerson , 04/19/2025 02:00:00 PM, [address] [place] [address] [place], [address], Progress Notes * MACI RAMOS PDOB:1949 (74 yo M)Acc No.[id number]:10/28/2024 Patient: MACI COLINDRES :1950 A ge:74 Y S ex:Male Address:[address] [place] [address] [facility] [place], [address] * true * Date: Generated for Printi ng/Faxing/Liban on: 1 12:11 PM EDT
--- OUTSIDE RECORDS SUMMARY | 2024-10-28 11:31 | XMS_ITS ---
Author Organization Jose G Dicekrson III, MD Address [address] [place] [address] [place] [address] Care Team Providers Care Bottom Scrubber Name Role Phone Dr. Jose G Dickerson III Primary Care Provider Medications Medication SIG (Take, Route, Fr equency, Duration) Notes Start Date End Date Status Tamsulosin HCl 0.4 MG 1 capsule Orally O nce a day for 30 days 10/28/2024 10/23/2025 Active Social History Sex Assigned At : Social History Observation Description Sex Assigned At Male Encounters Encounter Location Date Provider Diagnosis Jose G Dickerson III, MD [address] [place] [address] [place] [address] 10/28/2024 Jose G Dickerson Plan Of Treatment Medication Medication Name Sig Start Date Stop Date Notes Tamsulosin HCl 0.4 MG 1 capsule Orally O nce a day for 30 days 10/28/2024 10/23/2025 Next Appt Details Provider Name:Jose G Dickerson , 03/15/2025 09:45:00 AM, [address] [place] [address] [place], [address], Provider Name:Jose G Dickerson , 04/12/2025 10:00:00 AM, [address] [place] [address] [place], [address], Provider Name:Jose G Dickerson , 04/19/2025 02:00:00 PM, [address] [place] [address] [place], [address], Progress Notes * MACI RAMOS PDOB:1949 (74 yo M)Acc No.[id number]:10/28/2024 Patient: MACI COLINDRES :1950 A ge:74 Y S ex:Male Address:[address] [place] [address], [address] * Refills Start Tamsulosin HCl Capsule, 0.4 MG, Orally, 30, 1 capsule, Once a day, 30 days, Refills=11 * true * Date: Generated for Kati aguilera/Jovana/eTdocsmitting on: 1 12:10 PM EDT
--- OUTSIDE RECORDS SUMMARY | 2024-12-02 07:15 | XMS_ITS ---
Author Organization Jose G Dickerson III, MD Address [address] [place] [address] Care Team Providers Care Bass Viol Repairer Name Role Phone Dr. Jose G Dickerson III Primary Care Provider [phone] Allergies Allergen (clinical drug ingredient) Drug/Non Drug [...] Diagnosis Jose G Dickerson III, MD [address] [place] [address] [place] [address] 12/02/2024 Jose G Dickerson Prostate cancer C61 [...] to smoking cessation programs at the [facility] and he will consider this. 12/02/2024 Peripheral [...] to receive his bevacizumab injections from his nail setter. 12/02/2024 Continuous leakage of urine (ICD-10 - [...] Name:Jose G Dickerson , 03/15/2025 09:45:00 AM, [address] [place] [address] [address], [place], [address], Provider Name:Jose G Dickerson , 04/12/2025 10:00:00 AM, [address] [place] [address] [address], [place], [address], Provider Name:Jose G Dickerson , 04/19/2025 02:00:00 PM, [address] [place] [address] [address], [place], [address], Progress Notes * MACI RAMOS PDOB:1949 (74 yo M)Acc No.[id number]:12/02/2024 Progress Notes Patient: MACI COLINDRES Provider: Kenan Dickerson MD :1950 A ge:74 Y S ex:Male Date:12/02/2024 Address:[address] [place] [address] [id number] Subjective: * Chief Complaints: * M etastatic [...] urgical drainage of scrotal abscess under anesthesia [facility] ataract Surgery, right eye ight L3-4 Laminotomy, Partial facetectomy and foraminotomy with use of microscope 11/17/2024 * Hospitalization/Major Diagno stic Procedure: C KD, CHF and HTN osterior Fusion Lumbar spine L3- L4 rainage of scrotal abscess. [facility] 03/2022No history inpt at with [...] smoker ((1-9 cigs/day) H e lives in [facility]. He is not a W[employer]. He is and lives with his . [...] to smoking cessation programs at the [facility] and he will consider this. 5 . [...] to receive his bevacizumab injections from his nail setter. 9 . C ontinuous leakage of urine [...] 12/02/2024 Generated for Kapili ng/Favarinderg/eTransmitting on: 1 12:11 PM EDT History and Physical Notes * [...]
--- OUTSIDE RECORDS SUMMARY | 2024-12-12 10:00 | XMS_ITS ---
Author Organization Jose G Dickerson III, MD Address [address] [place] [address] [place] [address] Care Team Providers Care Script Reader Name Role Phone Dr. Jose G Dickerson III Primary Care Provider REASON FOR VISIT ? on meds that Dr Mace gave him Social History Sex Assigned At : Social History Observation Description Sex Assigned At Male Encounters Encounter Location Date Provider Diagnosis Jose G Dickerson III, MD [address] [place] [address] [place] [address] 12/12/2024 JoseG Dickerson Plan Of Treatment Next Appt Details Provider Name:Jose G Dickerson , 03/15/2025 09:45:00 AM, [address] [place] [address] [place], [address], Provider Name:Jose G Dickerson , 04/12/2025 10:00:00 AM, [address] [place] [address] [place], [address], Provider Name:Jose G Dickerson , 04/19/2025 02:00:00 PM, [address] [place] [address] [place], [address], Progress Notes * MACI RAMOS PDOB:1949 (74 yo M)Acc No.[id number]:12/12/2024 Patient: MACI COLINDRES :1950 A ge:74 Y S ex:Male Address:[address] [place], [address] * true * Date: Generated for Kati aguilera/Jovana/Liban on: 1 12:11 PM EDT
--- OUTSIDE RECORDS SUMMARY | 2025-01-06 09:03 | XMS_ITS ---
Author Organization Jose G Dickerson III, MD Address [address] [place] [address] [place] [address] Care Team Providers Care Window Shade Estimator Name Role Phone Dr. Jose G Dickerson III Primary Care Provider REASON FOR VISIT UTI Medications Medication SIG [...] Provider Diagnosis Jose G Dickerson III, MD [address] [place] [address] [place] [address] 01/06/2025 Jose G Dickerson Plan Of Treatment Next Appt Details Provider Name:Jose G Dickerson , 03/15/2025 09:45:00 AM, [address] [place] [address] [place], [address], Provider Name:Jose G Dickerson , 04/12/2025 10:00:00 AM, [address] [place] [address] [place], [address], Provider Name:Jose G Dickerson , 04/19/2025 02:00:00 PM, [address] [place] [address] [place], [address], Progress Notes * MACI RAMOS PDOB:1949 (74 yo M)Acc No.[id number]:01/06/2025 Patient: MACI COLINDRES :1950 A ge:74 Y S ex:Male Address:[address] [place] [address] [place], [address] Subjective: * Chief Complaints: * U TI [...]
--- OUTSIDE RECORDS SUMMARY | 2025-01-06 09:29 | XMS_ITS ---
Author Organization Jose G Dickerson III, MD Address [address] [place] [address] Care Team Providers Care Med Dir Name Role Phone Dr. Jose G Dickerson [...] Diagnosis Jose G Dickerson III, MD [address] [place] [address] [place] [address] 01/06/2025 Jose G Dickerson Plan Of Treatment Medication Medication Name Sig Start Date Stop Date Notes Ciprofloxacin HCl 500 MG 1 tablet Orally every 12 hrs for 7 days 01/06/2025 01/13/2025 Next Appt Details Provider Name:Jose G Dickerson , 03/15/2025 09:45:00 AM, [address] [place] [address] [place], [address], Provider Name:Jose G Dickerson , 04/12/2025 10:00:00 AM, [address] [place] [address] [place], [address], Provider Name:Jose G Dickerson , 04/19/2025 02:00:00 PM, [address] [place] [address] [place], [address], Progress Notes * MACI RAMOS PDOB:1949 (74 yo M)Acc No.[id number]:01/06/2025 Patient: MACI COLINDRES :1950 A ge:74 Y S ex:Male Address:[address] [place] [address], [address] * Refills Start Ciprofloxacin HCl Tablet, 500 MG, Orally, 14 Tablet, 1 tablet, every 12 hrs, 7 days, Refills=0 * true * Date: Generated for Kati aguilera/Jovana/Cortneyitting on: 12:11 PM EDT
--- OUTSIDE RECORDS SUMMARY | 2025-01-18 05:45 | XMS_ITS ---
Author Organization Jose G Dickerson III, MD Address [address] [place] [address] Care Team Providers Care Log Chain Worker Name Role Phone Dr. Jose G Dickerson III Primary Care Provider [phone] Allergies Allergen (clinical drug ingredient) Drug/Non Drug Allergy documented on EMR Reaction Allergy Type Onset Date Status No Known Drug Allergy Unknown Drug Allergy Active Results Component Value Reference Range Notes Urine Culture Reviewed date:01/22/2025 01:20:12 PM Interpretation: Performing Lab:[facility], [address] [place] [phone] Notes/Report: Urine Culture Report Result Urine Culture > 100,000 cfu/ml Urine Culture Mixed bacterial daniel a characteristic of Urine Culture urogenital contamination. REASON FOR VISIT B12 Injection, Pernicious anemia, prostate cancer, Hypertension, Macular degeneration, Stage III chronic kidney disease, Tobacco dependence, Peripheral arterial disease, T 1112 compression, Urinary incontinence Medications Medication SIG (Take, Route, Frequency, Duration) Notes Start Date End Date Status Nitrofurantoin Monohyd Macro 100 MG 1 capsule with food Orally every 12 hrs for 10 days 01/18/2025 01/28/2025 Active Cyanocobalamin 1000 MCG/ML 1 mL Injection 03/31/20 24 Active Tamsulosin HCl 0.4 MG 1 capsule Orally t a day 12/02/2024 Active Ferrous Gluconate 324 (38 Fe) MG [...] User Light cigarett e smoker ((1-9 cigs/day) Problems Problem Type SNOMED Code ICD Code Onset Dates Problem Status W/U Status Risk Notes Problem [id number] UTI symptoms (R39.9) Active confirmed Continues tto complain of dysuria. A urine culture was requested. Clinically he did not appear to have an infection. Vital Signs Temperature 97.0 degrees Fahrenheit 01/19/20 25 Blood pressure systolic 112 mm Hg 01/19/20 25 Blood pressure diastolic 65 mm Hg 025 Heart Rate 86 /min 01/18/2025 Respiratory Rate 16 /min 01/18/2025 Height 69 in 01/18/2025 Weight 154 lbs 01/18/2025 BMI 22.74 kg/m2 01/18/2025 Encounters Encounter Location Date Provider Diagnosis Jose G Dickerson III, MD [address] [place] [address] [place] [address] 01/18/2025 Jose G Dickerson Prostate cancer C61 ; UTI symptoms R39.9 ; Tobacco dependence F17.200 ; Essential hypertension I10 ; Macular degeneration of both eyes, unspecified type H35.30 ; Stage 3 chronic kidney disease N18.3 and Pernicious anemia D51.0 Assessments Encounter Date Diagnosis (ICD Code) Assessment Notes Treatment Notes Treatment Clinical Notes 01/18/2025 Prostate cancer (ICD-10 - C61) His PSA remains low indicating control of disease. He remains under the care of urology receiving androgen deprivation therapy. 01/18/2025 UTI symptoms (ICD-10 - R39.9) He is describing clear-cut symptoms of urinary tract infection with back pain dysuria and frequency.The previous infections with Escherichia coli was sensitive to nitrofurantoin which have prescribed today. A urine culture is pending. 01/18/2025 Tobacco dependence (ICD-10 - F17.200) I have discussed with him all of the long-term consequences of smoking and he is well aware of them. I have offered to refer him to smoking cessation programs at the [facility] and he will consider this. 01/18/2025 Essential hypertension (ICD-10 - I10) His blood pressure is stable at 126/68 and no change in his regimen was needed today.He was 134/61. 01/18/2025 Macular degeneration of both eyes, unspecified type (ICD-10 - H35.30) He will continue to receive his bevacizumab injections from his catalogue maker.He has been referred to Dr. Sheriff for additional evaluation of his vision. 01/18/2025 Stage 3 chronic kidney disease (ICD-10 - N18.3) His BUN and creatinine remain elevated. He remains under the care of nephrology this point. He was encouraged to hydrate aggressively. 01/18/2025 Pernicious anemia (ICD-10 - D51.0) He received 1000 mcg of vitamin B12by intramuscular injection in the left armToday without difficulty. Plan Of Treatment Medication Medication Name Sig Start Date Stop Date Notes Nitrofurantoin Monohyd Macro 100 MG 1 capsule with food Orally every 12 hrs for 10 days 01/18/2025 01/28/2025 Cyanocobalamin 1000 MCG/ML 1 mL Injection 03/31/2024 Tamsulosin HCl 0.4 MG 1 capsule Orally t e a day 12/02/2024 Ferrous Gluconate 324 (38 Fe ) MG 1 tablet Orally daily 03/30/2024 Next Appt Details Follow Up: 4 Weeks, Reason: B12 Injection Provider Name:Jose G Dickerson , 03/15/2025 09:45:00 AM, [address] [place] [address] [place], [phone], Provider Name:Jose G Dickerson , 04/12/2025 10:00:00 AM, [address] [place] [address] [address] [place], [place], [phone], Provider Name:Jose G Dickerson , 04/19/2025 02:00:00 PM, [address] [place] [address] [place], [phone], Procedure Notes * Category Sub-Category Detail Notes Injection Dose 1000 mg Route IM Site left arm Given by Dr. Dickesron Injected: B-12 (Cyanocobalamin ) ([facility] 97656-074-89) Progress Notes * MACI RAMOS PDOB:1949 (74 yo M)Acc No.[id number]:01/18/2025 Patient: MACI COLINDRES Provider: Kenan Dickerson MD :1950 A ge:74 Y S ex:Male Date:01/18/2025 Address:[address] [place] [address] [place], [phone] Subjective: * Chief Complaints: * B 12 InjectionPernicious anemiaProstate cancerHypertensionMacular degenerationStage III chronic kidney diseaseTobacco dependencePeripheral arterial diseaseT 1112 compressionUrinary incontinence * HPI: C OVID-19 Screening: Venkata jose has had 3 urinary tract infections in recent months old with Escherichia coli with a similar antibiotic sensitivity profile. He now complains of severe dysuria indistinguishable hernan the previous 3 infections. The organism is usually sensitivee only to nitrofurantoin which I have given him today. A urine culture is pending, although he could only produce a few cc of urine.His pain iss stable.He was given 1000 mcg of vitamin B12 I deep intramuscular injection in the left arm, for his pernicious aanemia. He looked fairly strong and healthy and well and was afebrile. Questions H ave you had any new onset fever, chills, cough, congestion, sore throat, shortness of breath, muscle aches? N o * ROS: G eneral/Constitutional: pain D ysuria, thoracic spine. C hills d enies.?Fatigue a dmits. F ever d enies. E NT: Decreased hearing d enies. R espiratory: Cough n on-productive. C ardiovascular: Chest pain with exertion d enies. D yspnea on exertion?denies. S hortness of breath w ith exertion. G astrointestinal: Constipation o ccasional. D ecreased appetite d enies. D iarrhea d enies. H eartburn d enies. N ausea d enies. R ectal bleeding d enies. V omiting d enies. H ematology: bruising d enies. p etechiae d enies. S wollen glands n one have been noted. G enitourinary: Frequent urination t wice a night. M usculoskeletal: Muscle aches d enies. P ainful joints d enies. S ciatica d enies. W eakness d enies. S kin: Itching d enies. R dario d enies. S kin lesion(s)?denies. N eurologic: Difficulty speaking d enies. D izziness d enies.?Headache d enies. L ow back pain t hat is chronic. P sychiatric: Depressed mood w hich is mild. * Medical History: * Surgical History: i ncision and drainage left lateral thigh abscess 2008excision draining scrotal sinus 2013cryoablation of the prostate 2014history of back surgery urgical drainage of scrotal abscess under anesthesia [facility] ataract Surgery, right eye ight L3-4 Laminotomy, Partial facetectomy and foraminotomy with use of microscope 11/17/2024 * Hospitalization/Major Diagno stic Procedure: C KD, CHF and HTN osterior Fusion Lumbar spine L3- L4 rainage of scrotal abscess. [facility] 03/2022No history inpt at with UTI 08/2024 [...] smoker ((1-9 cigs/day) H e lives in [facility]. He is not a Amish. He is and lives with his . He smokes 5 cigarettes per day. * Medications: T akingCyanocobalamin 1000 MCG/ML Solution 1 mL Injection Ferrous Gluconate 324 (38 Fe) MG Tablet 1 tablet Orally daily Tamsulosin HCl 0.4 MG Capsule 1 capsule Orally teice a day Medication List reviewed and reconciled with the patientTaking Cyanocobalamin 1000 MCG/ML Solution 1 mL Injection Taking Ferrous Gluconate 324 (38 Fe) MG Tablet 1 tablet Orally daily Taking Tamsulosin HCl 0.4 MG Capsule 1 capsule Orally teice a day Medication List reviewed and reconciled with the patient * Allergies: N o Known Drug Allergyno[Allergies Verified] Objective: * Vitals: H t: 69, Wt:154, BMI:22.74, BP:112/65, HR:86, RR:16, Temp:97.0, Ht-cm: 175.26, Wt- k.85. * P ast Orders: Lab:Complete Blood Count no Diff * Collection Date 11/03/2024 08/05/2024 07/16/2022 Collection Time 12:58 PM 08:22 AM 11:03 AM Order Date 11/03/2024 08/05/2024 07/16/2022 White Blood Count 5.9 (Ref Range: 4.8-10.8 X10*3/uL) 9.6 (Ref Range: 4.8-10.8 X10*3/uL) 8.0 (Ref Range: 4.8-10.8 X10*3/uL) Red Blood Count 3.22 L (Ref Range: 4.60-5.80 X10*6/uL) 2.98 L (Ref Range: 4.60-5.80 X10*6/uL) 3.70 L (Ref Range: 4.60-5.80 X10*6/uL) Hemoglobin 9.1 L (Ref Range: 14.0-18.0 g/dl) 8.4 L (Ref Range: 14.0-18.0 g/dl) 10.1 L (Ref Range: 14.0-18.0 g/dl) Hematocrit 30.3 L (Ref Range: 42.0-52.0 %) 27.9 L (Ref Range: 42.0-52.0 %) 33.4 L (Ref Range: 42.0-52.0 %) Mean Corpuscular Volume 94.1 (Ref Range: 80.0-98.0 fL) 93.6 (Ref Range: 80.0-98.0 fL) 90.3 (Ref Range: 80.0-98.0 fL) Mean Corpuscular Hemoglobin 28.3 (Ref Range: 27.0-33.0 pg) 28.2 (Ref Range: 27.0-33.0 pg) 27.3 (Ref Range: 27.0-33.0 pg) Mean Corpuscular HGB Conc 30.0 L (Ref Range: 31.0-36.0 g/dl) 30.1 L (Ref Range: 31.0-36.0 g/dl) 30.2 L (Ref Range: 31.0-36.0 g/dl) Red Cell Distribution Width 15.8 (Ref Range: 11.0-16.0 %) 14.4 (Ref Range: 11.0-16.0 %) 13.5 (Ref Range: 11.0-16.0 %) Platelet Count 335 (Ref Range: 160-400 X10*3/uL) 147 L (Ref Range: 160-400 X10*3/uL) 317 (Ref Range: 160-400 X10*3/uL) Mean Platelet Volume 9.3 L (Ref Range: 9.4-12.4 fL) 9.8 (Ref Range: 9.4-12.4 fL) 10.0 (Ref Range: 9.4-12.4 fL) NRBC Pct Auto 0.0 (Ref Range: 0.0-0.2 /100WBC) 0.0 (Ref Range: 0.0-0.2 /100WBC) 0.0 (Ref Range: 0.0-0.2 /100WBC) NRBC Abs Auto 0.000 (Ref Range: 0.0-0.012 X10*3/uL) 0.000 (Ref Range: 0.0-0.012 X10*3/uL) 0.000 (Ref Range: 0.0-0.012 X10*3/uL) * Lab:Basic Metabolic Panel * Collection Date 11/03/2024 08/08/2024 08/07/2024 Collection Time 12:58 PM 06:09 AM 05:21 AM Order Date 11/03/2024 08/08/2024 08/07/2024 Sodium 139 (Ref Range: 135-145 mmol/L) 142 (Ref Range: 135-145 mmol/L) 142 (Ref Range: 135-145 mmol/L) Blood Urea Nitrogen 41 H (Ref Range: 9-16 mg/dL) 23 H (Ref Range: 9-16 mg/dL) 31 H (Ref Range: 9-16 mg/dL) Creatinine 2.07 H (Ref Range: 0.5-1.4 mg/dL) 2.20 H (Ref Range: 0.5-1.4 mg/dL) 2.35 H (Ref Range: 0.5-1.4 mg/dL) Glucose Random 100 (Ref Range: 60-115 mg/dL) 91 (Ref Range: 60-115 mg/dL) 94 (Ref Range: 60-115 mg/dL) Calcium 9.3 (Ref Range: 8.4-10.2 mg/dL) 6.9 L (Ref Range: 8.4-10.2 mg/dL) 6.9 L (Ref Range: 8.4-10.2 mg/dL) Potassium 5.4 H (Ref Range: 3.3-5.1 mmol/L) 3.9 (Ref Range: 3.3-5.1 mmol/L) 3.8 (Ref Range: 3.3-5.1 mmol/L) Chloride 110 H (Ref Range: 96-108 mmol/L) 114 H (Ref Range: 96-108 mmol/L) 115 H (Ref Range: 96-108 mmol/L) Carbon Dioxide 23 (Ref Range: 22-29 mmol/L) 22 (Ref Range: 22-29 mmol/L) 20 L (Ref Range: 22-29 mmol/L) Anion Gap 11 L (Ref Range: 12-20) 10 L (Ref Range: 12-20) 11 L (Ref Range: 12-20) Estimated Glomerular Filt Rate 31 29 27 Creatinine Clr Calc Pharmacy 30.1 30.9 28.9 ???Imaging:FL guidance in OR (Order Date - 11/17/2024) (Performed Date - 11/17/2024) * Examination: G eneral Examination: GENERAL APPEARANCE: p leasant, chronically ill-appearing, in no acute distress, calm and relaxed: man. HEAD: a traumatic, normocephalic. EYES: e britt, [...] normal, no s3, or vascular bruits. LUNGS: : diminished breath sounds throughout: no wheezes, rales, rhonchi. BREASTS: no masses palpable bilaterally. ABDOMEN: b owel sounds normal, no ascites, no organomegaly, no mass. RECTAL EXAM: n ot examined. MUSCULOSKELETAL: e xtremities unremarkable, no clubbing, cyanosis or edema, Surgical scars over lower thoracic and lumbar spine. PERIPHERAL PULSES: n ormal. NEUROLOGIC: a lert and oriented, cranial nerves 2-12 grossly intact, deep tendon reflexes 2+ symmetrical, motor strength normal upper and lower extremities, sensory exam intact. PSYCH: a lert, oriented. Assessment: * Assessment: 1. P rostate cancer - C61 (Primary) N otes :His PSA remains low indicating control of disease. He remains under the care of urology receiving androgen deprivation therapy. 2 . U TI symptoms - R39.9 N otes :He is describing clear-cut symptoms of urinary tract infection with back pain dysuria and frequency.The previous infections with Escherichia coli was sensitive to nitrofurantoin which have prescribed today. A urine culture is pending. 3 . T obacco dependence - F17.200 N otes :I have discussed with him all of the long-term consequences of smoking and he is well aware of them. I have offered to refer him to smoking cessation programs at the [facility] and he will consider this. 4 . E ssential hypertension - I10 N otes :His blood pressure is stable at 126/68 and no change in his regimen was needed today.He was 134/61. 5 . M acular degeneration of both eyes, unspecified type - H35.30 ?Notes :He will continue to receive his bevacizumab injections from his catalogue maker.He has been referred to Dr. Sheriff for additional evaluation of his vision. 6 . S tage 3 chronic kidney disease - N18.3 N otes :His BUN and creatinine remain elevated. He remains under the care of nephrology this point. He was encouraged to hydrate aggressively. 7 . P ernicious anemia - D51.0 N otes :He received 1000 mcg of vitamin B12by intramuscular injection in the left armToday without difficulty. Plan: * Treatment: 2. U TI symptoms L AB: Urine Culture * Procedures: I njection: Injected: B -12 (Cyanocobalamin) ([facility] 51508-737-83). Dose 1 000 mg. Route I M. Site l eft arm. Given by Tin Dickerson. * Procedure Codes: 9 6372 THER/PROPH/DIAG INJ, [id number] INJ VIT B-12 CYNOCOBLMN TO 1000 MCG * Preventive Medicine: Counseling: S moking/Tobacco Use Patient counseled on the dangers of tobacco use and urged to quit. 0 01/18/2025 Patient Lifestyle Goals P atient wants to quit Treatment Goals S et a quit date, Cut down by 1 cigarette a week Barriers S ocial smoker, Stress Self-Management Plan M sandy a plan to cut down number of cigarettes over time and set a date to work towards quitting * Follow Up: 4 Weeks (Reason: B12 Injection) * Images: * Sign off status: Completed true * Provider: Kenan Dickerson MD Date: 0 01/18/2025 Generated for Kati aguilera/Jovana/eTransmitting on: 1 12:10 PM EDT History and Physical Notes * HPI (History of Present Illness) Category Sub-Category Detail Notes COVID-19 Screening Questions Have you had any new onset fever, chills, cough, congestion, sore throat, shortness of breath, muscle aches?: No Examination Category Sub-Category Detail Notes General Examination GENERAL APPEARANCE: pleasant , chronically ill-appearing, in no acute distress, calm and relaxed: man HEAD: atraumatic, normocep halic EYES: eomi, perrla, anicte beatriz, conjugate EARS: normal NOSE: septum intact NECK/THYROID: no jugular venous di stention, no carotid bruit, thyroid normal HEART: no clicks, gallops, murmurs, or rubs, regular rhythm, S1, S2 normal, no s3, or vascular bruits LUNGS: : diminished breath sounds throughout: no wheezes, rales, rhonchi ABDOMEN: bowel sounds normal, no ascites, no organomegaly, no mass NEUROLOGIC: alert and oriented, cranial nerves 2-12 grossly intact, deep tendon reflexes 2+ symmetrical, motor strength normal upper and lower extremities, sensory exam intact SKIN: no suspicious lesion s, anicteric PERIPHERAL PULSES: normal BREASTS: no masses palpable b ilaterally MUSCULOSKELETAL: extremities unremark able, no clubbing, cyanosis or edema, Surgical scars over lower thoracic and lumbar spine LYMPH NODES: no enlarged lymph no ritesh,spleen normal RECTAL EXAM: not examined PSYCH: alert, oriented ORAL CAVITY: normal, unremarkable
--- NOTE | 2025-03-01 10:45 | MHC.OFFVIS ---
Intake Visit Reasons: 5m Follow up/ lab Intake Note: Patient is Present for Follow Up LAB/UTI Urology Medication: None Antibiotic Allergies: None Blood Thinners: None Patient reports painful urination Patient reports he is no longer taking Tamsulosin, Methenamine and vitamin C only iron supplement Accompanied by: Self / Same As Patient Allergies No Known Allergies (No Known Allergies*) Allergy (Verified 03/01/25 10:59) HPI Comments Details: Keshav is a pleasant male. He is a patient of Dr. Dickerson. 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 Had not been on GnRH since PSA stays low. Has been on Xtandi. 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 Seen by Dr Dickerson radiation oncology. He has continued to have good biochemical response from GnRH. PSA remains low, testosterone remains blocks. 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 Would recommend anti androgen. Spot radiation. Assessment with oncology for chemotherapy. Intermittent Hormone therapy - Last GnRH 01/23 Initial therapy external beam radiotherapy 2004. Rising PSA - salvage cryotherapy 2009 2022 T12 lesion with external beam radiation and hormone therapy Denosumab through oncology Subsequent intermittent hormone therapy PSA 01/21 <0.1, 04/22 <0.1, 10/22 PSA < 0.1, T 2, 01/22 PSA <0.1, T 1, 04/23 PSA <0.1 T12, 10/23 2.8 212, 01/23 10.2 288, 04/24 P 1.8 T 3, 07/24 1.3 T 3, 11/23 0.8 T 2 Urinary urgency and frequency Secondary to prostate cancer therapy Radiation cystitis Trial of Toviaz with terazosin Failed tibial stimulation Failed oxybutynin, vesicare, toviaz PFSH Medical History UTI (urinary tract infection) CHF (congestive heart failure) Overweight Renal cyst Tobacco dependence Urinary incontinence Iron deficiency anemia Hx of radiation therapy Stenosis of lumbosacral spine Falls Hypertension Hypercholesteremia Kidney disease Macular degeneration Hematuria Urgency incontinence Prostate cancer Surgical History Hx of prostate biopsy Hx of cataract extraction History of incision and drainage History of back surgery Family History Other No family history of coronary artery disease Social History Household Members: Spouse Housing: House Are you a primary respiratory care practitioner to a significant other at home: No Do you presently have visiting nurse or other home services: No Alcohol intake: former Patient Tobacco Use Status: Current everyday Tobacco user Smoking Start Date: 06/18[birth year] Tobacco use type: Cigarette Cigarette Packs Per Day: 0.5 Cigarettes Per Day: 4 Years Smoked: 65 e-Cigarette/Vaping Use: Never Used Second Hand Smoke Exposure: No Advance Directives Date on File: 02/19/21 service: Yes Current occupational status: retired Results AMB Urinalysis, Automated UA Leukoctes 70 Reese/uL Last Edit by ANGELA Ramirez on 03/01/25 11:01 UA Nitrite Negative Last Edit by ANGELA Ramirez on 03/01/25 11:01 UA Urobilinogen 0.2 mg/dL Last Edit by ANGELA Ramirez on 03/01/25 11:01 UA Protein 100 mg/dL Last Edit by ANGELA Ramirez on 03/01/25 11:01 UA pH 6.0 Last Edit by Penelope Calabrese, RMA on 03/01/25 11:01 UA Blood 25 Nacho/uL Last Edit by Penelope Calabrese, RMA on 03/01/25 11:01 UA Specific [place] 1.020 Last Edit by Penelope Calabrese, RMA on 03/01/25 11:01 UA Ketone Negative Last Edit by Penelope Calabrese, RMA on 03/01/25 11:01 UA Bilirubin 0 mg/dL Last Edit by Penelope Calabrese, RMA on 03/01/25 11:01 UA Glucose 0 mg/dL Last Edit by Penelope Calabrese, RMA on 03/01/25 11:01 Results Reviewed Results Reviewed: Laboratory Last Values Urine pH (Auto) 6.0 03/01/25 11:00 Specific [place] (Auto) 1.020 03/01/25 11:00 Urine Protein (Auto) 100 mg/dL 03/01/25 11:00 Glucose (UA)(Auto) 0 mg/dL 03/01/25 11:00 Urine Ketones (Auto) Negative 03/01/25 11:00 Urine Blood (Auto) 25 Nacho/uL 03/01/25 11:00 Urine Nitrite (Auto) Negative 03/01/25 11:00 Urine Bilirubin (Auto) 0 mg/dL 03/01/25 11:00 Urine Urobilinogen (Auto) 0.2 mg/dL 03/01/25 11:00 Leukocyte Esterase (Auto) 70 Reese/uL 03/01/25 11:00 Assessment & Plan Assessment & Plan Orders: Orders AMB Urinalysis Automated Today N39.0 - Urinary tract infection, site not specified, Z13.9 - Encounter for screening, unspecified Testosterone, Total 3 Months C61 - Malignant neoplasm of prostate, C79.51 - Secondary malignant neoplasm of bone NM bone scan whole body 3 Months C61 - Malignant neoplasm of prostate, C79.51 - Secondary malignant neoplasm of bone Prostate Specific Antigen 3 Months C61 - Malignant neoplasm of prostate, C79.51 - Secondary malignant neoplasm of bone Coding
--- OUTSIDE RECORDS SUMMARY | 2025-03-01 12:10 | XMS_ITS | Patient Health Record ---
Author Organization Jose G Dickerson III, MD Address [address] [place] [address] [place] [address] Care Team Providers Care Report Checker Name Role Phone Dr. Jose G Dickerson III Primary Care Provider Allergies Allergen (clinical drug ingredient) Drug/Non Drug Allergy documented on EMR Reaction Allergy Type Onset Date Status No Known Drug Allergy Unknown Drug Allergy Active Results Component Value Reference Range Notes Urine Culture Reviewed date:01/22/2025 01:20:12 PM Interpretation: Performing Lab:[address] [address] Notes/Report: Urine Culture Report Result Urine Culture > 100,000 cfu/ml Urine Culture Mixed bacterial daniel a characteristic of Urine Culture urogenital contamination. Ferritin (Not yet reviewed b y provider) Interpretation: Performing Lab:[address] [address] Notes/Report: Ferritin 18 20-250 ng/mL Vitamin B12 (Not yet reviewe d by provider) Interpretation: Performing Lab:[address] [address] Notes/Report: Vitamin B12 1302 200-900 pg/mL NORMAL 200-900 PG/ML INDETERMINATE 160-199 PG/ML DEFICIENT < 160 PG/ML Complete Blood Count Auto Di ff Reviewed date:03/23/2024 09:17:17 AM Interpretation: Performing Lab:[address] [address] Notes/Report: White Blood Count 6.8 4.8-10.8 X10*3/uL [...] Panel Reviewed date:03/23/2024 09:17:18 AM Interpretation: Performing Lab:[facility], [address] [place] [phone] Notes/Report: Sodium 143 135-145 mmol/L Potassium 5.2 [...] Ferritin Reviewed date:03/23/2024 09:17:18 AM Interpretation: Performing Lab:[facility], [address] [place] [phone] Notes/Report: Ferritin 15 20-250 ng/mL Prostate Specific Antigen Reviewed date:03/23/2024 09:17:18 AM Interpretation: Performing Lab:[facility], [address] [place] [phone] Notes/Report: Prostate Specific Antigen 0.13 <0.05-4.0 ng/mL PSA methodology: [employer] i Chemiluminescent Microparticle Immunoassay (CMIA) Vitamin B12 Reviewed date:03/23/2024 09:17:18 AM Interpretation: Performing Lab:[facility], [address] [place] [phone] Notes/Report: Vitamin B12 665 200-900 pg/mL NORMAL 200-900 PG/ML INDETERMINATE 160-199 PG/ML DEFICIENT < 160 PG/ML XR mandible min 4V Reviewed date:04/24/2024 08:39:55 PM Interpretation: Performing Lab: Notes/Report: [address] [address] XRay Report Signed Patient: Maci Conley MR#: [id number] : 1950 Acct:[id number] Age/Sex: 74 / M ADM Date: 04/16/24 Loc: HO.JAIROAY Attending Dr: Jose G Dickerson MD Ordering Physician: Jose G Dickerson MD Date of Service: 04/16/24 Procedure(s): XR mandible min 4V Accession Number(s): [id number] cc: Jose G Dickerson MD EXAMINATION: XR [...] by: Davion Upton MD 04/18/2024 11:29 AM EST RP Dictated By: Davion Upton MD Signed By: <Electronically signed by Davion Upton MD in OV> 04/18/24 1129 DD/ TD/TT: 04/16/24954 Air Compressor Operator: CATHY [place] [address] XRay Report Signed Patient: Jose D Conley MR#: [id number] : 1950 Acct:[id number] Age/Sex: 74 / M ADM Date: 04/16/24 Loc: HO.XRAY Attending Dr: Jose G Dickerson MD Ordering Physician: Jose G Dickerson MD Date of Service: 04/16/24 Procedure(s): XR man dible min 4V Accession Number(s): [id number] cc: Jose G Dickerson MD EXAMINATION: XR [...] by: Davion Upton MD 04/18/2024 11:29 AM EST RP Dictated By: Davion Upton MD Signed By: <Electronically signed by Davion Upton MD in OV> 04/18/24 1129 DD/ TD/TT: 04/16/24954 Air Compressor Operator: CATHY Complete Blood Count Auto Di ff Reviewed date:07/01/2024 06:26:39 AM Interpretation: Performing Lab:[facility], [address] [place] [phone] Notes/Report: White Blood Count 7.1 4.8-10.8 X10*3/uL [...] Panel Reviewed date:07/01/2024 06:26:39 AM Interpretation: Performing Lab:[facility], [address] [place] [phone] Notes/Report: Sodium 142 135-145 mmol/L Potassium 5.1 [...] Ferritin Reviewed date:07/01/2024 06:26:39 AM Interpretation: Performing Lab:[address] [address] Notes/Report: Ferritin 32 20-250 ng/mL Prostate Specific Antigen Reviewed date:07/01/2024 06:26:39 AM Interpretation: Performing Lab:[address] [address] Notes/Report: Prostate Specific Antigen 0.12 <0.05-4.0 ng/mL PSA methodology: [employer] i Chemiluminescent Microparticle Immunoassay (CMIA) Vitamin B12 Reviewed date:07/01/2024 06:26:39 AM Interpretation: Performing Lab:[address] [address] Notes/Report: Vitamin B12 797 200-900 pg/mL NORMAL 200-900 PG/ML INDETERMINATE 160-199 PG/ML DEFICIENT < 160 PG/ML Gram stain Reviewed date:07/11/2024 06:13:00 AM Interpretation: Performing Lab:[address] [address] Notes/Report: Gram stain Gram stain results: Gram stain 2+ polys Gram stain 1+ Gram-positive cocci Routine Culture Reviewed date:07/11/2024 06:13:00 AM Interpretation: Performing Lab:[facility], [address] [place] [phone] Notes/Report: Routine Culture Report - external Routine Culture 1+ Mixed skin zander US abdominal aortic aneurysm Reviewed date:08/05/2024 03:27:00 PM Interpretation: Performing Lab: Notes/Report: [address] [place] [address] Ultrasound Report Signed Patient: Maci Conley MR#: [id number] : 1950 Acct:[id number] Age/Sex: 74 / M ADM Date: 07/19/24 Loc: HO.US Attending Dr: Ricky Rendon MD Ordering Physician: Ricky Rendon MD Date of Service: 07/19/24 Procedure(s): US abdominal aortic aneurysm Accession Number(s): [id number] cc: Jose G Dickerson MD; Ricky Rendon [...] 07/21/24 1217 DD/ 1303 TD/TT: 07/19/24 1406 Air Compressor Operator: [address] [address] Ultrasound Report Signed Patient: Jose D Conley MR#: [id number] : 1950 Acct:[id number] Age/Sex: 74 / M ADM Date: 07/19/24 Loc: HO.US Attending Dr: Ricky Rendon MD Ordering Physician: Ricky Rendon MD Date of Service: 07/19/24 Procedure(s): US abdominal aortic aneurysm Accession Number(s): [id number] cc: Jose G Dickerson MD; Ricky Rendon [...] 07/21/24 1217 DD/ 1303 TD/TT: 07/19/24 1406 Air Compressor Operator: US arterial duplex BI w/ RAUL Reviewed date:08/05/2024 03:27:00 PM Interpretation: Performing Lab: Notes/Report: [address] [address] Ultrasound Report Signed Patient: Maci Conley MR#: [id number] : 1950 Acct:[id number] Age/Sex: 74 / M ADM Date: 07/19/24 Loc: HO.US Attending Dr: Ricky Rendon MD Ordering Physician: Ricky Rednon MD Date of Service: 07/19/24 Procedure(s): US arterial duplex BI w/ RAUL Accession Number(s): [id number] cc: Jose G Dickerson MD; Ricky Rendon [...] 07/21/24 1217 DD/ 1303 TD/TT: 07/19/24 1406 Air Compressor Operator: [address] [address] Ultrasound Report Signed Patient: Jose D Conley MR#: [id number] : 1950 Acct:[id number] Age/Sex: 74 / M ADM Date: 07/19/24 Loc: HO.US Attending Dr: Ricky Rendon MD Ordering Physician: Ricky Rendon MD Date of Service: 07/19/24 Procedure(s): US art erial duplex BI w/ RAUL Accession Number(s): [id number] cc: Jose G Dickerson MD; Ricky Rendon [...] 07/21/24 1217 DD/ 1303 TD/TT: 07/19/24 1406 Air Compressor Operator: Urine Culture Reviewed date:08/11/2024 08:13:59 PM Interpretation: Performing Lab:[facility], [address] [place] [phone] Notes/Report: O:ESCCOL Escherichia coli Urine Culture ESBL [...] date:08/05/2024 03:27:00 PM Interpretation: Performing Lab: Notes/Report: [address] [address] [address] Scan Report Signed Patient: Maci Conley MR#: [id number] : 1950 Acct:[id number] Age/Sex: 74 / M ADM Date: 08/04/24 Loc: HO.ED Attending Dr: Ordering Physician: Bettie Suarez DO Date of Service: 08/04/24 Procedure(s): CT abdomen pelvis wo IV con Accession Number(s): [id number] cc: Jose G Dickerson MD; Bettie Suarez DO Report Number: [id number]: Total DLP = 411.00 mGy-cm EXAMINATION: CT [...] 08/04/24 1315 DD/ 1242 TD/TT: 08/04/24 1242 Air Compressor Operator: [place] [address] CT Scan Report Signed Patient: Jose D Conley MR#: [id number] : 1950 Acct:[id number] Age/Sex: 74 / M ADM Date: 08/04/24 Loc: .ED Attending Dr: Ordering Physician: Bettie Suarez DO Date of Service: 08/04/24 Procedure(s): CT abd omen pelvis wo IV con Accession Number(s): [id number] cc: Jose G Dickerson MD; Bettie Suarez [...] 01:15 PM EDT RP Dictated By: Hugo Huston MD Signed By: <Electronically signed by Hugo Haider MD in OV> 08/04/24 1315 DD/ 1242 TD/TT: 08/04/24 1242 Air Compressor Operator: MR thoracic spine wo/w con Reviewed date:08/05/2024 03:27:00 PM Interpretation: Performing Lab: Notes/Report: [address] [address] Magnetic Resonance Report Signed Patient: Maci Conley MR#: [id number] : 1950 Acct:[id number] Age/Sex: 74 / M ADM Date: 08/04/24 Loc: [place] [address]: Violetta Tinsley MD Ordering Physician: Nathan Gastelum Date of Service: 08/04/24 Procedure(s): MR thoracic spine wo/w con Accession Number(s): [id number] cc: Nathan Gastelum; Jose G Dickerson MD [...] in OV> 08/04/241818 DD/ 17 TD/TT: 08/04/241817 Air Compressor Operator: [place] [address] Magnetic Resonance Report Signed Patient: Jose D Conley MR#: [id number] : 1950 Acct:[id number] Age/Sex: 74 / M ADM Date: 08/04/24 [facility]: Violetta Tinsley MD Ordering Physician: Nathan Gastelum Date of Service: 08/04/24 Procedure(s): MR shaver spine wo/w con Accession Number(s): [id number] cc: Nathan Gastelum; Jose G Dickerson MD [...] Lutz MD in OV> 08/04/24 1819 DD/ 1818 TD/TT: 08/04/24 181 Air Compressor Operator: XR chest 1V Reviewed date:08/05/2024 03:27:00 PM Interpretation: Performing Lab: Notes/Report: [address] [address] XRay Report Signed Patient: Maci Conley MR#: [id number] : 1950 Acct:[id number] Age/Sex: 74 / M ADM Date: 08/04/24 Loc: .ED Attending Dr: Ordering Physician: Bettie Suarez DO Date of Service: 08/04/24 Procedure(s): XR chest 1V Accession Number(s): [id number] cc: Jose G Dickerson MD; Bettie Suarez [...] 08/04/24 1212 DD/ 1153 TD/TT: 08/04/24 1159 Air Compressor Operator: [address] [address] XRay Report Signed Patient: Jose D Conley MR#: [id number] : 1950 Acct:[id number] Age/Sex: 74 / M ADM Date: 08/04/24 Loc: HO.ED Attending Dr: Ordering Physician: Bettie Suarez DO Date of Service: 08/04/24 Procedure(s): XR chest 1V Accession Number(s): [id number] cc: Jose G Dickerson MD; Bettie Suarez [...] 08/04/24 1212 DD/ 1153 TD/TT: 08/04/24 1159 Air Compressor Operator: Complete Blood Count no Diff Reviewed date:08/05/2024 03:27:00 PM Interpretation: Performing Lab:[facility], [address] [place] [phone] Notes/Report: White Blood Count 9.6 4.8-10.8 X10*3/uL [...] Panel Reviewed date:08/05/2024 03:27:00 PM Interpretation: Performing Lab:[address] [address] Notes/Report: Sodium 140 135-145 mmol/L Potassium 4.3 [...] Antigen Reviewed date:08/05/2024 03:27:00 PM Interpretation: Performing Lab:[address] [address] Notes/Report: Prostate Specific Antigen 0.30 <0.05-4.0 ng/mL PSA methodology: [employer] i Chemiluminescent Microparticle Immunoassay (CMIA) SARS-CoV2/FLU/RSV Reviewed date:08/05/2024 03:27:00 PM Interpretation: Performing Lab:[address] [address] Notes/Report: Influenza A PCR NEGATIVE Negative Influenza [...] by authorized laboratories. Testing performed on the [employer] GeneXpert utilizing real-time RT-PCR. All SARS CoV2 and positive influenza A/B results are reported to [facility]. CT head/brain wo con Reviewed date:08/07/2024 07:20:28 AM Interpretation: Performing Lab: Notes/Report: [address] [address] [address] Scan Report Signed Patient: Maci Conley MR#: [id number] : 1950 Acct:[id number] Age/Sex: 74 / M ADM Date: 08/04/24 Loc: [facility] 357-[address]: Bassem Mehta MD Ordering Physician: Bassem Mehta MD Date of Service: 08/05/24 Procedure(s): CT head/brain wo IV con Accession Number(s): [id number] cc: Jose G Dickerson MD; Bassem Mehta MD Report Number: [id number]: Total DLP = 718.00 mGy-cm CLINICAL HISTORY: [...] in OV> 08/05/242055 DD/ 55 TD/TT: 08/05/242055 Air Compressor Operator: [address] [address] [address] Scan Report Signed Patient: Jose D Conley MR#: [id number] : 1950 Acct:[id number] Age/Sex: 74 / M ADM Date: 08/04/24 Loc: .S3 357-[address]: Joel Mehta MD Ordering Physician: Bassem Mehta MD Date of Service: 08/05/24 Procedure(s): CT head/brain wo IV con Accession Number(s): [id number] cc: Jose G Dickerson MD; Bassem Mehta [...] in OV> 08/05/242055 DD/ 55 TD/TT: 08/05/242055 Air Compressor Operator: XR chest 2V Reviewed date:08/05/2024 03:27:00 PM Interpretation: Performing Lab: Notes/Report: [address] [address] XRay Report Signed Patient: Maci Conley MR#: [id number] : 1950 Acct:[id number] Age/Sex: 74 / M ADM Date: 08/04/24 Loc: HO.S3 357-[address]: Bassem Mehta MD Ordering Physician: Bassem Mehta MD Date of Service: 08/05/24 Procedure(s): XR chest 2V Accession Number(s): [id number] cc: Jose G Dickerson MD; Bassem Mehta [...] 08/05/24 1436 DD/ 1350 TD/TT: 08/05/24 1353 Air Compressor Operator: [place] [address] XRay Report Signed Patient: Jose D Conley MR#: [id number] : 1950 Acct:[id number] Age/Sex: 74 / M ADM Date: 08/04/24 Loc: HO.S3 357-[address]: Joel Mehta MD Ordering Physician: Bassem Mehta MD Date of Service: 08/05/24 Procedure(s): XR chest 2V Accession Number(s): [id number] cc: Jose G Dickerson MD; Bassem Mehta [...] 08/05/24 1436 DD/ 1350 TD/TT: 08/05/24 1353 Air Compressor Operator: Hold Lav - Possible Hematolo gy Reviewed date:08/07/2024 07:20:28 AM Interpretation: Performing Lab:[facility], [address] [place] [phone] Notes/Report: Hold Lav - Possible Hematology SEE NOTE Specimen will be held untested for 8 hours. Call Hematology if testing is desired. Basic Metabolic Panel Reviewed date:08/07/2024 07:20:28 AM Interpretation: Performing Lab:[facility], [address] [place] [phone] Notes/Report: Sodium 140 135-145 mmol/L Potassium 4.0 [...] Procalcitonin Reviewed date:08/07/2024 07:20:28 AM Interpretation: Performing Lab:[facility] [address] Notes/Report: Procalcitonin 14.76 Procalcitonin (PCT) Reference Range: [...] results from different laboratories and methodologies. References: [employer]icians/Society of Critical Care [...] 510(k) substantial equivalence determination decision summary for [facility] PCT SHARON. http://www.accessdat a.fda.fov/cdrh_docs/ reviews/J591293.pdf. Published May 2004. Accessed October 2016. Creatinine Urine Reviewed date:08/07/2024 07:20:28 AM Interpretation: Performing Lab:[facility], [address] [place] [phone] Notes/Report: Creatinine Urine 77.77 Sodium Urine Random Reviewed date:08/07/2024 07:20:28 AM Interpretation: Performing Lab:[address] [address] Notes/Report: Sodium Urine Random 56.0 Legionella Ag Urine Reviewed date:08/11/2024 08:13:59 PM Interpretation: Performing Lab:[address] [address] Notes/Report: Legionella Ag Urine Not Detected Not [...] or serogroups. THIS TEST WAS PERFORMED AT: [facility] [address] KAROL ARNDT MD,PHD MRSA Nasal Screen Reviewed date:08/07/2024 07:20:28 AM Interpretation: Performing Lab:[address] [address] Notes/Report: MRSA Nasal PCR NEGATIVE Negative SA Nasal PCR NEGATIVE Negative MRSA Interpretation SEE NOTE MRSA target DNA not detected; SA target DNA not detected. A MRSA NEGATIVE, SA NEGATIVE test result does not preclude MRSA or SA nasal colonization. Strep Pneumo Ag urine Reviewed date:08/11/2024 08:13:59 PM Interpretation: Performing Lab:[facility], [address] [place] [phone] Notes/Report: Strep Pneumo Ag urine Not Detected Not Detected THIS TEST WAS PERFORMED AT: [facility] [address] KAROL ARNDT MD,PHD US renal BI Reviewed date:08/07/2024 07:20:28 AM Interpretation: Performing Lab: Notes/Report: [address] [address] Ultrasound Report Signed Patient: Maci Conley MR#: [id number] : 1950 Acct:[id number] Age/Sex: 74 / M ADM Date: 08/04/24 Loc: HO.S3 357-[address]: Bassem Mehta MD Ordering Physician: Bassem Mehta MD Date of Service: 08/06/24 Procedure(s): US renal BI Accession Number(s): [id number] cc: Jose G Dickerson MD; Bassem Mehta [...] 08/06/24 1229 DD/ 1228 TD/TT: 08/06/24 1228 Air Compressor Operator: [place] [address] Ultrasound Report Signed Patient: Jose D Conley MR#: [id number] : 1950 Acct:[id number] Age/Sex: 74 / M ADM Date: 08/04/24 Loc: .S3 357-[address]: Joel Mehta MD Ordering Physician: Bassem Mehta MD Date of Service: 08/06/24 Procedure(s): US renal BI Accession Number(s): [id number] cc: Jose G Dickerson MD; Bassem Mehta [...] 08/06/24 1229 DD/ 1228 TD/TT: 08/06/24 1228 Air Compressor Operator: Basic Metabolic Panel Reviewed date:08/11/2024 08:13:59 PM Interpretation: Performing Lab:[facility], [address] [place] [phone] Notes/Report: Sodium 142 135-145 mmol/L Potassium 3.8 [...] Peptide Reviewed date:08/07/2024 07:20:28 AM Interpretation: Performing Lab:[facility], [address] [place] [phone] Notes/Report: B Type Natriuretic Peptide 191 <100 pg/mL Albumin Level Reviewed date:08/11/2024 08:13:59 PM Interpretation: Performing Lab:[facility], [address] [place] [phone] Notes/Report: Albumin Level 2.6 3.5-5.0 g/dL Hold Lav - Possible Hematolo gy Reviewed date:08/11/2024 08:13:59 PM Interpretation: Performing Lab:[facility], [address] [place] [phone] Notes/Report: Hold Lav - Possible Hematology SEE NOTE Specimen will be held untested for 8 hours. Call Hematology if testing is desired. Basic Metabolic Panel Reviewed date:08/11/2024 08:13:59 PM Interpretation: Performing Lab:[facility], [address] [place] [phone] Notes/Report: Sodium 142 135-145 mmol/L Potassium 3.9 [...] Procalcitonin Reviewed date:08/11/2024 08:13:59 PM Interpretation: Performing Lab:[facility], [address] [place] [phone] Notes/Report: Procalcitonin 3.54 Procalcitonin (PCT) Reference Range: [...] results from different laboratories and methodologies. References: [employer]icians/Society of Critical Care Medicine Consensus Conference Committee. Definitions for sepsis and organ failure and guidelines for the use of innovative therapies in sepsis. Crit Care Med 1992;20(6):864-874. Precious B, Catina KL, Alyseer H, et al. Calcitonin precursors are reliable markers of sepsis in a medical intensive care unit. Crit Care Med 2000;363:600-607. Zheng S, Gloria K, Chuy C, et al. Diagnostic value of procalcitonin, interleukin-6 and interleukin-8 in critically ill patients admitted with suspected sepsis. AM J Respir Crit Care Med 2001;164:396-402. US Food and Drug Administration. 510(k) substantial equivalence determination decision summary for [facility] PCT SHARON. http://www.accessdat a.fda.fov/cdrh_docs/ reviews/R070523.pdf. Published May 2004. Accessed October 2016. MR lumbar spine wo/w con Reviewed date:08/11/2024 08:13:59 PM Interpretation: Performing Lab: Notes/Report: [place] [address] Magnetic Resonance Report Signed Patient: Maci Conley MR#: [id number] : 1950 Acct:[id number] Age/Sex: 74 / M ADM Date: 08/04/24 Loc: .S3 357-[address]: Violetta Tinsley MD Ordering Physician: Bassem Mehta MD Date of Service: 08/08/24 Procedure(s): MR lumbar spine wo/w con Accession Number(s): [id number] cc: Jose G Dickerson MD; Bassem Mehta [...] 08/09/24 0821 DD/ 1440 TD/TT: 08/08/24 1520 Air Compressor Operator: [address] [address] Magnetic Resonance Report Signed Patient: Jose D Conley MR#: [id number] : 1950 Acct:[id number] Age/Sex: 74 / M ADM Date: 08/04/24 Loc: HO.S3 357-[address]: Violetta Tinsley MD Ordering Physician: Bassem Mehta MD Date of Service: 08/08/24 Procedure(s): MR lum bar spine wo/w con Accession Number(s): [id number] cc: Jose G Dickerson MD; Bassem Mehta [...] 08/09/24 0821 DD/ 1440 TD/TT: 08/08/24 1520 Air Compressor Operator: Complete Blood Count Auto Di ff Reviewed date:09/27/2024 01:57:42 PM Interpretation: Performing Lab:[facility], [address] [place] [phone] Notes/Report: White Blood Count 9.7 4.8-10.8 X10*3/uL [...] Panel Reviewed date:09/27/2024 01:57:42 PM Interpretation: Performing Lab:[facility], [address] [place] [phone] Notes/Report: Sodium 141 135-145 mmol/L Potassium 5.3 [...] Antigen Reviewed date:09/27/2024 01:57:42 PM Interpretation: Performing Lab:[facility], [address] [place] [phone] Notes/Report: Prostate Specific Antigen 0.23 <0.05-4.0 ng/mL PSA methodology: [employer] i Chemiluminescent Microparticle Immunoassay (CMIA) Testosterone, Total Reviewed date:09/27/2024 01:57:42 PM Interpretation: Performing Lab:[address] [address] Notes/Report: Testosterone, Total 2 250-1100 ng/dL Men with clinically significant hypogonadal symptoms and testosterone values repeatedly in the range of the 200-300 ng/dL or less, may benefit from testosterone treatment after adequate risk and benefits counseling. For additional information, please refer to http://education.I.Systems/fa q/ TotalTestosteroneLCM HFXQBO972 (This link is being provided for informational/ educational purposes only.) This test was developed and its analytical performance characteristics have been determined by [facility] [place], [place]. It has not been cleared or approved by the U.S. Food and Drug Administration. This assay has been validated pursuant to the CLIA regulations and is used for clinical purposes. THIS TEST WAS PERFORMED AT: [facility]/[address] [address] KAROL ARNDT MD,PHD NM lamar perf SPECT rest & str Reviewed date:10/16/2024 07:54:15 AM Interpretation: Performing Lab: Notes/Report: [address] [address] Nuclear Medicine Report Signed Patient: Maci Conley MR#: [id number] : 1950 Acct:[id number] Age/Sex: 74 / M ADM Date: 09/29/24 Loc: DAVID Attending Dr: Jose G Dickerson MD Ordering Physician: Jose G Dickerson MD Date of Service: 09/29/24 Procedure(s): NM lamar perf SPECT rest str Accession Number(s): [id number] cc: Jose G Dickerson MD Lexiscan Myocardial [...] 10/04/24 1113 DD/ 1030 TD/TT: 10/03/24 1355 Air Compressor Operator: [address] [address] Nuclear Medicine Report Signed Patient: Jose D Conley MR#: [id number] : 1950 Acct:[id number] Age/Sex: 74 / M ADM Date: 09/29/24 Loc: [facility] Attending Dr: Jose G Dickerson MD Ordering Physician: Jose G Dickerson MD Date of Service: 09/29/24 Procedure(s): NM lamar perf SPECT rest str Accession Number(s): [id number] cc: Jose G Dickerson MD Lexiscan Myocardial perfusion study Indication: Preoperative cardiac evaluation Technique: The patient was brou ght in for a Lexiscan perfusion study on 09/29/2024 and was injected 0.4 mg of Lexiscan intravenously. Within a minute of this injection 25 mC i of sestamibi was given intravenously. Images were obtained using the S [employer] gamma camera interlaced with the gating device. [...] 10/04/2024 11:13 AM EDT RP Workstatio n: [id number] Dictated By: Marques Patel MD Signed By: <Electronically signed by Marques Patel MD in OV> 10/04/24 1113 DD/ 1030 TD/TT: 10/03/24 1355 Air Compressor Operator: XR lumbar spine 2-3V Reviewed date:10/16/2024 07:54:15 AM Interpretation: Performing Lab: Notes/Report: [address] [address] XRay Report Signed Patient: Maci Conley MR#: [id number] : 1950 Acct:[id number] Age/Sex: 74 / M ADM Date: 10/13/24 Loc: HO.XRAY Attending Dr: Blair Plata MD, PhD Ordering Physician: Blair Plata MD, PhD Date of Service: 10/13/24 Procedure(s): XR lumbar spine 2-3V Accession Number(s): [id number] cc: Jose G Dickerson MD; Blair Plata [...] Hugo Ralph MD 10/13/2024 09:59 AM EDT Dictated By: Hugo Callejas MD Signed By: <Electronically signed by Hugo Haider MD in OV> 10/13/2459 DD/ 9 TD/TT: 10/13/24 0950 Air Compressor Operator: [address] [address] XRay Report Signed Patient: Jose D Conley MR#: [id number] : 1950 Acct:[id number] Age/Sex: 74 / M ADM Date: 10/13/24 Loc: HO.XRAY Attending Dr: Susan Plata MD, PhD Ordering Physician: Blair Plata MD, PhD Date of Service: 10/13/24 Procedure(s): XR lum bar spine 2-3V Accession Number(s): [id number] cc: Jose G Dickerson MD; Blair Plata [...] Hugo Ralph MD 10/13/2024 09:59 AM EDT Dictated By: Hugo Huston MD Signed By: <Electronically signed by Hugo Haider MD in OV> 10/13/24 0959 DD/ 0940 TD/TT: 10/13/24 0950 Air Compressor Operator: Complete Blood Count no Diff Reviewed date:11/04/2024 06:58:53 PM Interpretation: Performing Lab:[facility], [address] [place] [address] Notes/Report: White Blood Count 5.9 4.8-10.8 X10*3/uL [...] Panel Reviewed date:11/04/2024 06:58:53 PM Interpretation: Performing Lab:[facility], [address] [place] [address] Notes/Report: Sodium 139 135-145 mmol/L Potassium 5.4 [...] date:11/18/2024 11:59:55 AM Interpretation: Performing Lab: Notes/Report: [address] [address] Fluoroscopy Report Signed Patient: Maci Conley MR#: [id number] : 1950 Acct:[id number] Age/Sex: 74 / M ADM Date: 11/17/24 Loc: HO.SSS Attending Dr: Blair Plata MD, PhD Ordering Physician: Blair Plata MD, PhD Date of Service: 11/17/24 Procedure(s): FL guidance in OR Accession Number(s): [id number] cc: Jose G Dickerson MD; Blair Plata [...] 11/17/24 1219 DD/ 1100 TD/TT: 11/17/24 1130 Air Compressor Operator: [place] [address] Fluoroscopy Report Signed Patient: Jose D Conley MR#: [id number] : 1950 Acct:[id number] Age/Sex: 74 / M ADM Date: 11/17/24 Loc: HO.[facility] Attending Dr: Susan Plata MD, PhD Ordering Physician: Blair Plata MD, PhD Date of Service: 11/17/24 Procedure(s): FL ragini shaece in OR Accession Number(s): [id number] cc: Jose G Dickerson MD; Blair Plata [...] 11/17/24 1219 DD/ 1100 TD/TT: 11/17/24 1130 Air Compressor Operator: Complete Blood Count Auto Di ff (Not yet reviewed by provider) Interpretation: Performing Lab:[facility], [address] [place] [address] Notes/Report: White Blood Count 6.1 4.8-10.8 X10*3/uL Red Blood Count 3.33 4.60-5.80 X10*6/uL Hemoglobin 9.4 14.0-18.0 g/dl Hematocrit 31.4 42.0-52.0 % Mean Corpuscular Volume 94.3 80.0-98.0 fL Mean Corpuscular Hemoglobin 28.2 27.0-33.0 pg Mean Corpuscular HGB Conc 29.9 31.0-36.0 g/dl Red Cell Distribution Width 13.2 11.0-16.0 % Platelet Count 257 160-400 X10*3/uL Mean Platelet Volume 9.3 9.4-12.4 fL Neutrophils Percent Auto 61.8 45-73 % Imm Gran Pct Auto 0.3 0.0-0.4 % Lymphocytes Percent Auto 19.9 20-40 % Monocytes Percent Auto 9.4 2-11 % Eosinophils Percent Auto 7.8 0-4 % Basophils Percent Auto 0.8 0-2 % NRBC Pct Auto 0.0 0.0-0.2 /100WBC Neutrophils Absolute Auto 3.8 2.0-8.3 x10*3/uL Imm Gran Abs Auto 0.02 0.00-0.03 X10*3/uL Lymphocytes Absolute Auto 1.2 1.2-4.9 X10*3/uL Monocytes Absolute Auto 0.6 0.1-1.2 X10*3/uL Eosinophils Absolute Auto 0.5 0.0-0.4 X10*3/uL Basophils Absolute Auto 0.1 0.0-0.2 X10*3/uL NRBC Abs Auto 0.000 0.0-0.012 X10*3/uL Comprehensive Met. Panel (No t yet reviewed by provider) Interpretation: Performing Lab:[address] [address] Notes/Report: Sodium 143 135-145 mmol/L Potassium 4.5 3.3-5.1 mmol/L Chloride 110 96-108 mmol/L Carbon Dioxide 27 22-29 mmol/L Anion Gap 11 12-20 Blood Urea Nitrogen 39 9-16 mg/dL Creatinine 2.38 0.5-1.4 mg/dL Estimated Glomerular Filt Rate 27 Chronic Kidney Disease: Estimated GFR < 60 mL/min/1.73m2 Severe Kidney Disease: Estimated GFR < 15 mL/min/1.73m2 Glucose Random 90 60-115 mg/dL Calcium 9.2 8.4-10.2 mg/dL Bilirubin Total 0.2 0.0-1.0 mg/dL Aspartate Amino Transferase 16 5-37 U/L Alanine Aminotransferase 10 0-40 U/L Total Protein 6.8 6.5-8.0 g/dL Albumin Level 4.1 3.5-5.0 g/dL Alkaline Phosphatase 66 39-117 U/L Prostate Specific Antigen (N ot yet reviewed by provider) Interpretation: Performing Lab:[address] [address] Notes/Report: Prostate Specific Antigen < 0.10 <0.05-4.0 ng/mL PSA methodology: Dominguez Alinity i Chemiluminescent Microparticle Immunoassay (CMIA) Testosterone, Total (Not yet reviewed by provider) Interpretation: Performing Lab:[address] [address] Notes/Report: Testosterone, Total 3 250-1100 ng/dL Men with clinically significant hypogonadal symptoms and testosterone values repeatedly in the range of the 200-300 ng/dL or less, may benefit from testosterone treatment after adequate risk and benefits counseling. For additional information, please refer to http://education.[employer].com/fa q/ TotalTestosteroneM BSNNXJ225 (This link is being provided for informational/ educational purposes only.) This test was developed and its analytical performance characteristics have been determined by [facility] [place], [place]. It has not been cleared or approved by the U.S. Food and Drug Administration. This assay has been validated pursuant to the CLIA regulations and is used for clinical purposes. THIS TEST WAS PERFORMED AT: [employer]/[address] KAROL ARNDT MD,PHD Reason For Referral Reason Evaluate and Treat Blood in Stool Diagnosis 1 Blood in stool (K92. 1) Referral Organization Jose G Dickerson III, MD Referring Provider First Name Jose G Referring Provider Last Name Dickerson Referring Provider Speciality Internal M edicine Referred Organization [facility] nter Referred Provider [facility] er, Gastroenterology Referred Address [address] [place] [address],[place], [place],[id number], Referred Provider Specialty Gastroentero logy General Notes Elvira Castle 08/18/2024 04:05:39 PM > Referral was faxed. Referral Priority Routine Referral Appointment Date 12/07/2024 Reason Consult and Treat MRI done at [facility] on 08/08/2024 Spinal Canal Stenosis L3-4 Herniated Disc Diagnosis 1 Herniated lumbar int ervertebral disc (M51.26) Diagnosis 2 Spinal stenosis, lum bosacral region (M48.07) Referral Organization Jose G Dickerson III, MD Referring Provider First Name Jose G Referring Provider Last Name Dickerson Referring Provider Speciality Internal M edicine Referred Provider BLAIR PLATA Referred Provider Specialty Neurosurgery General Notes Elvira Castle 08/29/2024 11:10:35 AM > Referral, progress note and recent MRI faxed. Referral Priority Routine Referral Appointment Date 09/16/2024 Medications Medication SIG (Take, Route, Frequency, Duration) Notes Start Date End Date Status Tamsulosin HCl 0.4 MG 1 capsule Orally t 12/02/2024 Active Cyanocobalamin 1000 MCG/ML 1 mL [...] Problem Status W/U Status Risk Notes Problem 623023308 Prostate cancer (C61) Active confirmed His PSA remains low indicating control of disease. He remains under the care of urology receiving androgen deprivation therapy. Problem 794060451 B12 deficiency (E53.8) Active confirmed He received 100 0 mcg of vitamin B12 by intramuscular injection in the left arm without difficulty and tolerated it well. 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 I will continue. We will begin receiving denosumab. Problem 69398752 Essential hypertension (I10) Active confirmed His blood press ure is at its target range. No change in his regimen as necessary. Follow-up was arranged. Problem 35742646 Tobacco dependence (F17.200) Active confirmed I have discusse d with him all of the long-term consequences of smoking and he is well aware of them. I have offered to refer him to smoking cessation programs at the [facility] and he will consider this. Problem 88383791 Pernicious anemia (D51.0) Active confirmed He received 1 000 mcg of vitamin B12by intramuscular injection in the left armToday without difficulty. Problem 70457590 Iron deficiency anemia, unspecified iron deficiency anemia type (D50.9) Active confirmed He continues on oral iron therapy. Problem 888945558 Stage 3 chronic kidney disease (N18.3) Active confirmed His BUN and creatinine remain elevated. He remains under the care of nephrology this point. He was encouraged to hydrate aggressively. Problem 75787589 Age-related cataract of both eyes, unspecified age-related cataract type (H25.9) Active confirmed He is medically cleared for bilateral cataract extraction with a normal risk of a man his age. There is no contraindication to surgery. Problem 711021753 Macular degeneration of both eyes, unspecified type (H35.30) Active confirmed He will contin ue to receive his bevacizumab injections from his manager athletics.He has been referred to Dr. Sheriff for additional evaluation of his vision. Problem Peripheral arterial occlusive disease (520798575) Peripheral arterial occlusive disease (I77.9) Active confirmed There is been n o change in his claudication or peripheral arterial disease. He is up-to-date with his visits to the vascular surgeon. No open areas on his lower extremities. Problem 178148739 UTI symptoms (R39.9) Active confirmed Continues tto complain of dysuria. A urine culture was requested. Clinically he did not appear to have an infection. Problem Chronic kidney disease stage 3 (disorder) (325658921) Chronic kidney disease, stage 3 unspecified (N18.30) [...] Provider Diagnosis Jose G Dickerson III, MD [address] [place] [address] [place] [address] 2024 Jose G Dickerson Essential hypertensi on I10 ; Prostate cancer C61 ; Iron deficiency anemia, unspecified iron deficiency anemia type D50.9 ; Vitamin B12 deficiency E53.8 ; Stage 3 chronic kidney disease N18.3 ; Tobacco dependence F17.200 ; Overweight E66.3 and Peripheral arterial occlusive disease I77.9 Jose G Dickerson III, MD [address] [place] [address] [place] [address] 03/30/2024 Jose G Dickerson Essential hypertensi on I10 ; Prostate cancer C61 ; Stage 3 chronic kidney disease N18.3 ; Tobacco dependence F17.200 ; Iron deficiency anemia, unspecified iron deficiency anemia type D50.9 ; Vitamin B12 deficiency E53.8 ; Macular degeneration of both eyes, unspecified type H35.30 and Peripheral arterial occlusive disease I77.9 Jose G Dickerson III, MD [address] [place] [address] [place] [address] 04/15/2024 Jose G Dickerson Essential hypertensi on [...] deficiency E53.8 Jose G Dickerson III, MD [address] [place] [address] [place] [address] 04/28/2024 Jose G Dickerson Essential hypertensi on I10 ; Prostate cancer C61 ; Stage 3 chronic kidney disease N18.3 ; Tobacco dependence F17.200 ; Iron deficiency anemia, unspecified iron deficiency anemia type D50.9 ; Peripheral arterial occlusive disease I77.9 ; Macular degeneration of both eyes, unspecified type H35.30 and Pernicious anemia D51.0 Jose G Dickerson III, MD [address] [place] [address] [place] [address] 06/08/2024 Jose G iDckerson Essential hypertensi on I10 ; Prostate cancer C61 ; Iron deficiency anemia, unspecified iron deficiency anemia type D50.9 ; Macular degeneration of both eyes, unspecified type H35.30 ; Stage 3 chronic kidney disease N18.3 ; Peripheral arterial occlusive disease I77.9 ; Tobacco dependence F17.200 ; Overweight E66.3 and Pernicious anemia D51.0 Jose G Dickerson III, MD [address] [place] [address] [place] [address] 07/07/2024 Jose G Dickerson Essential hypertensi on [...] anemia D51.0 Jose G Dickerson III, MD [address] [place] [address] [place] [address] 07/12/2024 Jose G Dickerson Essential hypertensi on [...] Furuncle L02.92 Jose G Dickerson III, MD [address] [place] [address] [place] [address] 08/26/2024 Jose G Dickerson Prostate cancer C61 ; Essential hypertension I10 ; Macular degeneration of both eyes, unspecified type H35.30 ; Stage 3 chronic kidney disease N18.3 ; Tobacco dependence F17.200 ; Peripheral arterial occlusive disease I77.9 ; 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, initial encounter S24.114A ; Pernicious anemia D51.0 and Overweight E66.3 Jose G Dickerson III, MD [address] [place] [address] [place] [address] 09/27/2024 Jose G Dickerson Prostate cancer C61 [...] anemia D51.0 Jose G Dickerson III, MD [address] [place] [address] [place] [address] 10/12/2024 Jose G Dickerson Prostate cancer C61 [...] clearance Z01.818 Jose G Dickerson III, MD [address] [place] [address] [place] [address] 10/26/2024 Jose G Hurtne Prostate cancer C61 [...] disc M51.26 Jose G Dickerson III, MD [address] [place] [address] [place] [address] 11/23/2024 Jose G Hurtne Prostate cancer C61 ; Tobacco dependence F17.200 ; Essential hypertension I10 ; Macular degeneration of both eyes, unspecified type H35.30 ; Stage 3 chronic kidney disease N18.3 ; Iron deficiency anemia, unspecified iron deficiency anemia type D50.9 and Herniated lumbar intervertebral disc M51.26 Jose G Dickerson III, MD [address] [place] [address] [place] [address] 12/02/2024 Jose G Hurtne Prostate cancer C61 ; Essential hypertension I10 ; Stage 3 chronic kidney disease N18.3 ; Tobacco dependence F17.200 ; Peripheral arterial occlusive disease I77.9 ; Vitamin B12 deficiency E53.8 ; Pernicious anemia D51.0 ; Macular degeneration of both eyes, unspecified type H35.30 and Continuous leakage of urine N39.45 Jose G Dickerson III, MD [address] [place] [address] [place] [address] 12/21/2024 Jose G Norrisrne Prostate cancer C61 [...] anemia D51.0 Jose G Dickerson III, MD [address] [place] [address] [place] [address] 01/18/2025 Jose G Dickerson Prostate cancer C61 ; UTI symptoms R39.9 ; Tobacco dependence F17.200 ; Essential hypertension I10 ; Macular degeneration of both eyes, unspecified type H35.30 ; Stage 3 chronic kidney disease N18.3 and Pernicious anemia D51.0 Jose G Dickerson III, MD [address] [place] [address] [place] [address] 02/15/2025 Jose G Dickerson Prostate cancer C61 ; Iron deficiency anemia, unspecified iron deficiency anemia type D50.9 ; Essential hypertension I10 ; B12 deficiency E53.8 ; UTI symptoms R39.9 ; Chronic kidney disease, stage 3 unspecified N18.30 ; Macular degeneration of both eyes, unspecified type H35.30 and Stage 3 chronic kidney disease N18.3 Jose G Dickerson III, MD [address] [place] [address] [place] [address] 08/15/2024 Jose G Dickerson III, MD [address] [place] [address] [place] [address] 08/22/2024 Jose G Dickerson III, MD [address] [place] [address] [place] [address] 08/26/2024 Jose G Dickerson III, MD [address] [place] [address] [place] [address] 09/19/2024 Jose G Dickerson III, MD [address] [place] [address] [place] [address] 09/28/2024 Jose G Dickerson III, MD [address] [place] [address] [place] [address] 10/18/2024 Jose G Dickerson III, MD [address] [place] [address] [place] [address] 10/28/2024 Jose G Dickerson III, MD [address] [place] [address] [place] [address] 10/28/2024 Jose G Dickerson III, MD [address] [place] [address] [address] [place] [address] 12/12/2024 Jose G Dickerson III, MD [address] [place] [address] [address] [place], [place] [address] 01/06/2025 Jose G Dickerson III, MD [address] [place] [address] [address] [place], [place] [address] 01/06/2025 Jose G Dickerson Assessments Encounter Date [...] him to smoking cessation programs at the [facility] and he will consider this. 12/02/2024 [...] him to smoking cessation programs at the [facility] and he will consider this. 01/18/2025 Prostate [...] to receive his bevacizumab injections from his manager athlet[employer]. 08/26/2024 Macular degeneration of both eyes, unspecified type (ICD-10 - H35.30) He will continue to receive his bevacizumab injections from his manager athletics. 09/27/2024 Essential hypertension (ICD-10 - I10) His blood pressure is stable and no change in his regimen was needed today. 10/12/2024 Macular degeneration of both eyes, unspecified type (ICD-10 - H35.30) He will continue to receive his bevacizumab injections from his manager athletics. 10/26/2024 Macular degeneration of both eyes, unspecified type (ICD-10 - H35.30) He will continue to receive his bevacizumab injections from his manager athlet[employer]. 11/23/2024 Essential hypertension (ICD-10 - I10) His [...] him to smoking cessation programs at the [facility] and he will consider this. 02/15/2025 Essential [...] him to smoking cessation programs at the [facility] and he will consider this. 04/15/2024 Tobacco dependence (ICD-10 - F17.200) I have discussed with him all of the long-term consequences of smoking and he is well aware of them. I have offered to refer him to smoking cessation programs at the [facility] and he will consider this. 04/28/2024 Tobacco dependence (ICD-10 - F17.200) I have discussed with him all of the long-term consequences of smoking and he is well aware of them. I have offered to refer him to smoking cessation programs at the [facility] and he will consider this. 06/08/2024 Macular degeneration of both eyes, unspecified type (ICD-10 - H35.30) He will continue to receive his bevacizumab injections from his manager athlet[employer]. 07/07/2024 Iron deficiency anemia, unspecified iron deficiency [...] to receive his bevacizumab injections from his manager athlet[employer]. 12/02/2024 Tobacco dependence (ICD-10 - F17.200) I have discussed with him all of the long-term consequences of smoking and he is well aware of them. I have offered to refer him to smoking cessation programs at the [facility] and he will consider this. 12/21/2024 Macular degeneration of both eyes, unspecified type (ICD-10 - H35.30) He will continue to receive his bevacizumab injections from his manager athlet[employer].He has been referred to Dr. Sheriff for [...] to receive his bevacizumab injections from his manager athlet[employer]. 07/12/2024 Iron deficiency anemia, unspecified iron deficiency [...] him to smoking cessation programs at the [facility] and he will consider this. 09/27/2024 [...] to receive his bevacizumab injections from his manager athletics.He has been referred to Dr. Sheriff for [...] him to smoking cessation programs at the [facility] and he will consider this. 03/30/2024 [...] him to smoking cessation programs at the [facility] and he will consider this. 10/26/2024 [...] to receive his bevacizumab injections from his manager athletics. 04/15/2024 Macular degeneration of both eyes, unspecified type (ICD-10 - H35.30) He will continue to receive his bevacizumab injections from his manager athletics. 04/28/2024 Macular degeneration of both eyes, unspecified type (ICD-10 - H35.30) He will continue to receive his bevacizumab injections from his manager athletics. 06/08/2024 Tobacco dependence (ICD-10 - F17.200) I have discussed with him all of the long-term consequences of smoking and he is well aware of them. I have offered to refer him to smoking cessation programs at the [facility] and he will consider this. 07/07/2024 [...] him to smoking cessation programs at the [facility] and he will consider this. 08/26/2024 [...] him to smoking cessation programs at the [facility] and he will consider this. 10/12/2024 [...] to receive his bevacizumab injections from his manager athletics.He has been referred to Dr. Sheriff for [...] him to smoking cessation programs at the [facility] and he will consider this. 12/02/2024 Macular degeneration of both eyes, unspecified type (ICD-10 - H35.30) He will continue to receive his bevacizumab injections from his manager athletics. 12/21/2024 Complete lesion at T11-T12 level of [...] him to smoking cessation programs at the [facility] and he will consider this. 07/12/2024 [...] ARTERY 05/30/2021 US LEG UNILATERAL ARTERY 06/05/2021 Complete Blood Count Auto Diff Comprehensive Met. Panel 02/21/2025 Ferritin 02/15/2025 Prostate Specific Antigen 02/21/2025 Vitamin B12 02/15/2025 Testosterone, Total 02/21/2025 Urine Culture 02/15/2025 ECG 12 lead EKG 09/27/2024 NUC Stress Test 09/27/2024 Next Appt Details Provider Name:Jos eG Dickerson , 03/15/2025 09:45:00 AM, [address] [place] [address] [address] [place], [place], [address], Provider Name:Jose G Dickerson , 04/12/2025 10:00:00 AM, [address] [place] [address] [address] [place], [place], [address], Provider Name:Jose G Dickerson , 04/19/2025 02:00:00 PM, [address] [place] [address] [address], [place], [address], Insurance Providers Payer Name Payer Address Payer Phone Subscriber Number Group Number Insured Name Patient Relationship to Insured Coverage Start Date Coverage End Date MEDICARE NGS [address] [facility] [place] [place] [address] [id number] MACI BARAHONA Self - patient is the insured [facility] [address] [place], [place] [id number] MACI BARAHONA Self - patient is [...] Surgical drainage of scrotal abscess under anesthesia [facility] 03/2022 history of back surgery 02/2022 cryoablation of the prostate 2014 excision draining scrotal sinus 2013 incision and drainage left lateral thigh abscess 2009 Hospitalization History Reason Date(Month/Year) inpt at with UTI 08/2024 No history Drainage of scrotal abscess. [facility] 03/2022 Posterior Fusion Lumbar spine L3- L4 2021 CKD, CHF and HTN 08/2021
--- OUTSIDE RECORDS SUMMARY | 2025-03-01 12:11 | XMS_ITS | Clinical Summary ---
Author Organization [facility] Address [address] [place] [address] Phone Care Team Providers Care Project/Production Manager Imaging Name Role Phone Jose G Dickerson MD Primary Care Provider [phone] Social History Tobacco Use Types Packs/Day Years [...] Payer ( fective 2014-Present) Name:Keshav Ramos Member ID:[id number] Relation to Subscriber:Self Name:Keshav Ramos Subscriber ID:[id number] Payer ID:[id number] Group ID:Not on file Type:Medicare Address: [employer] [address] Care Teams Project/Production Manager Imaging Relationship Specialty Start Date End Date Jose G Dickerson MD [address] [place] [address] [place] [address] PCP - General Medical Oncology 08/19/24 Additional Source Comments The information contained in this document represents components of the legal health record. It is not the complete legal health record.[facility]
--- OUTSIDE RECORDS SUMMARY | 2025-03-01 12:11 | XMS_ITS | Clinical Summary ---
Author Organization [facility] Address [address] [place] [address] Phone Care Team Providers Care Paving Inspector Name Role Phone Jose G Dickerson MD Primary Care Provider [phone] Allergies No known active allergies Medications No [...] patient's age to complete this topic Insurance [facility] [place] [id number] [facility] Medicare Care Teams Paving Inspector Relationship Specialty Start Date End Date Jose G Dickerson MD [address] [place] [address] [phone] [place] PCP - General Medical Oncology 04/05/21
--- OUTSIDE RECORDS SUMMARY | 2025-03-01 12:11 | XMS_ITS | Encounter Summary ---
Author Organization [facility] Address [address] [place] [address] Phone Care Team Providers Care Container Shop Welder Name Role Phone Jose G Dickerson MD Primary Care Provider [phone] Reason for Visit * Reason Comments Med Refill Encounter Details Date Type Department Care Team (Late st Contact Info) Description 02/11/2023 Refill [facility] [address] [place] [id number] Jon Ma MD Social History Tobacco Use [...] on filedocumented in this encounter Care Teams Container Shop Welder Relationship Specialty Start Date End Date Jose G Dickerson MD [address] [place] [address] [address] [facility] [place] P[facility] - General Medical Oncology 04/05/21 documented as of this encounter
== END 2025-03-01 11:19 | disposition home or self-care (01) ==
LOC: HO.HUSH 10:02
PROVIDERS: PCP Internal Medicine Medical Oncology; Visit Provider Urology
DX: Z13.9 Encounter for screening, unspecified (principal); N39.0 Urinary tract infection, site not specified

== ENCOUNTER → 2025-03-01 10:02 | Outpatient (BNVA) | payer MEDICARE, SELFPAY | PROVIDERS: PCP Internal Medicine Medical Oncology; Visit Provider Urology | DX: C61 Malignant neoplasm of prostate (principal); C79.51 Secondary malignant neoplasm of bone; R39.15 Urgency of urination; R35.0 Frequency of micturition | CPT/HCPCS: 81003; 99212 ==

== ENCOUNTER 2025-03-27 10:36 | Outpatient (REF) | payer MEDICARE, SELFPAY ==
--- OUTSIDE RECORDS SUMMARY | 2025-03-27 13:13 | XMS_ITS | Clinical Summary ---
Author Organization [facility] Address [address] [place] [id number] Phone Care Team Providers Care Cork Insulation Installer Name Role Phone Jose G Dickerson MD Primary Care Provider [phone] Social History Tobacco Use Types Packs/Day Years [...] Payer ( fective 2014-Present) Name:Keshav Ramos Member ID:[id number] Relation to Subscriber:Self Name:Keshav Ramos Subscriber ID:[id number] Payer ID:[id number] Group ID:Not on file Type:Medicare Address: [facility] [address] Care Teams Cork Insulation Installer Relationship Specialty Start Date End Date Jose G Dickerson MD [address] [place] [address] [place] [address] PCP - General Medical Oncology 08/19/24 Additional Source Comments The information contained in this document represents components of the legal health record. It is not the complete legal health record.[facility]
[2025-03-27 15:24] LABS: Anion Gap 14 (12-20); Blood Urea Nitrogen 42 mg/dL (9-16); Calcium 9.4 mg/dL (8.4-10.2); Carbon Dioxide 27 mmol/L (22-29); Chloride 108 mmol/L (96-108); Estimated Glomerular Filt Rate 27; Potassium 4.7 mmol/L (3.3-5.1); Sodium 144 mmol/L (135-145)
== END 2025-03-27 10:37 | disposition home or self-care (01) ==
LOC: HO.LAB 10:36
PROVIDERS: PCP Internal Medicine Medical Oncology; Visit Provider Internal Medicine Hypertension Specialist
DX: N18.30 Chronic kidney disease, stage 3 unspecified (principal)
CPT/HCPCS: 36415; 80048

== ENCOUNTER 2025-04-17 09:58 | Outpatient (AMB) | payer MEDICARE, SELFPAY ==
[2025-04-17 10:01] VITALS: BP 132/64; PULSE 102; O2SAT 99; BMI 21.8
--- NOTE | 2025-04-17 10:01 | HO.NEPHOV ---
Vital Signs 04/17/25 10:01 Height 6 ft 1 in Weight 165 lb BMI 21.8 BP 132/64 Blood Pressure Location Lt brachial Position Sitting Pulse 102 H Pulse Source Pulse Oximeter Pulse Oximetry (%) 99 Oxygen Delivery Method Room Air Intake Visit Reasons: 3 mo f/u w/ labs last seen 08/2024 Step Finisher Required: No Accompanied by: Self / Same As Patient Allergies No Known Allergies (No Known Allergies*) Allergy (Verified 04/17/25 10:03) Medication List - Last Reconciled 04/17/25 by Jon Ma MD acetaminophen (Tylenol Extra Strength) 1,000 mg PO Q6H PRN ferrous gluconate 1 tab PO QAM HPI Comments Details: History of Present Illness The patient is a 75-year-old male presenting for a 6-month follow-up of his chronic kidney disease and other chronic conditions. He has a history of chronic kidney disease stage 2. Recent blood work from March 27 showed his kidney function is stable compared to February and is improved from September, with a normal potassium level. In his urological history, the patient has prostate cancer post-radiation. He is followed by his urologist, Dr. Dover, and his PSA is low at 0.1 or 0.2. He receives Lupron injections every six months, with the next one scheduled for May. The patient's most significant complaint is urinary incontinence, which he describes as a serious problem. He reports dripping urine all day and severe nocturia, which wakes him every hour to hour and a half with an urge to urinate, significantly disrupting his sleep. He has tried various sleeping positions and elevating his legs before bed without improvement in his symptoms. Since his last visit, the patient underwent a disc operation on his back, but he continues to experience back pain and suspects possible nerve damage. He smokes but reports having reduced his tobacco use considerably. His only new medication is an iron supplement. Results - Labs: - Kidney function (March 27): Stable compared to February and improved since September. - Potassium (March 27): Normal. - PSA: Low, reported as 0.1 or 0.2. REPLACED BY [facility] Medical History UTI (urinary tract infection) CHF (congestive heart failure) Overweight Renal cyst Tobacco dependence Urinary incontinence Iron deficiency anemia Hx of radiation therapy Stenosis of lumbosacral spine Falls Hypertension Hypercholesteremia Kidney disease Macular degeneration Hematuria Urgency incontinence Prostate cancer Surgical History (Updated 04/17/25 @ 10:03 by ANGELA Angeles) History of back surgery (~02/2025) Hx of prostate biopsy Hx of cataract extraction History of incision and drainage History of back surgery Family History Other No family history of coronary artery disease Social History Household Members: Spouse Housing: House Are you a primary career and guidance counselor to a significant other at home: No Do you presently have visiting nurse or other home services: No Alcohol intake: former Patient Tobacco Use Status: Current everyday Tobacco user Smoking Start Date: [birth year] Tobacco use type: Cigarette Cigarette Packs Per Day: 0.5 Cigarettes Per Day: 4 Years Smoked: 65 e-Cigarette/Vaping Use: Never Used Second Hand Smoke Exposure: No Advance Directives Date on File: 02/19/21 service: Yes Current occupational status: retired Physical Exam Exam Exam: Physical Exam General: Awake. Comfortable. HENT: Neck supple. Mucosa moist. Pulmonary: Lungs aeration equal. No rales. Cardiology: Heart S1-S2 heard. No gallop. Abdomen: Soft. Non tender. Bowel sounds normal. Neurologic: No involuntary movements. No myoclonus. Extremities: No edema. No rash. Vital Signs: Last Vital Signs Pulse 102 H 04/17/25 10:01 BP 132/64 04/17/25 10:01 Pulse Ox 99 04/17/25 10:01 Oxygen Delivery Method Room Air 04/17/25 10:01 BMI result Body Mass Index 21.8 Results Reviewed Nephrology Results: Hgb, (14.0-18.0) 9.4 g/dl L 02/21/25 WBC, (4.8-10.8) 6.1 X10*3/uL 02/21/25 Plt Count, (160-400) 257 X10*3/uL 02/21/25 Sodium, (135-145) 144 mmol/L 03/27/25 Potassium, (3.3-5.1) 4.7 mmol/L 03/27/25 Chloride, (96-108) 108 mmol/L 03/27/25 Carbon Dioxide, (22-29) 27 mmol/L 03/27/25 BUN, (9-16) 42 mg/dL H 03/27/25 Creatinine, (0.5-1.4) 2.36 mg/dL H 03/27/25 Calcium, (8.4-10.2) 9.4 mg/dL 03/27/25 Urine Protein, (Neg-Trace) 100 (2+) mg/dL H 12/05/24 Renal US 08/06/24 Assessment & Plan Assessment & Plan (1) Malignant neoplasm prostate: Code(s): C61 - Malignant neoplasm of prostate Category: Medical (2) Anemia: Code(s): D64.9 - Anemia, unspecified Category: Medical (3) PAD (peripheral artery disease): Code(s): I73.9 - Peripheral vascular disease, unspecified Category: Medical (4) CKD (chronic kidney disease) stage 3, GFR 30-59 ml/min: Code(s): N18.30 - Chronic kidney disease, stage 3 unspecified Category: Medical (5) Hypertension: Comment: no meds currently Code(s): I10 - Essential (primary) hypertension Category: Medical Plan Plan 1. Chronic Kidney Disease, Stage 3 - Recent lab work from March shows stable kidney function, which is an improvement from September. - Potassium level is normal. - No changes will be made to the current management. - The plan is to continue with follow-up appointments every six months. 2. Urinary Incontinence - The patient's severe incontinence, especially nocturia, is recognized as a significant issue affecting his sleep and quality of life. - It was clarified that this is a bladder issue, not directly related to kidney function. - The patient was advised to continue his strategy of limiting fluid intake after 5 p.m. and ensuring adequate hydration during the daytime to help manage symptoms. 3. Prostate Cancer - The patient's prostate cancer is being managed by his urologist, with a low PSA of 0.1-0.2. - He will continue to receive Lupron injections every six months, with the next scheduled for May. Patient Instructions - Continue all your medications as they are. No changes are needed at this time. - Continue to drink lots of fluid during the daytime, but limit your drinking after 5 p.m. to help reduce waking up at night. - It is better to sleep on your side or stomach, as sleeping on your back can make you feel the urge to urinate more often. - Keep your appointment with your urologist for your next Lupron shot in May. - We will see you back in this office in six months for your next follow-up. Orders: Orders Basic Metabolic Panel 6 Months N18.30 - Chronic kidney disease, stage 3 unspecified Coding Level of Care Code Est Pt Level 4 (40591) Diagnoses Malignant neoplasm prostate C61 Anemia D64.9 PAD (peripheral artery disease) I73.9 CKD (chronic kidney disease) stage 3, GFR 30-59 ml/min N18.30 Hypertension I10
== END 2025-04-17 10:16 | disposition home or self-care (01) ==
LOC: HO.HKA 09:59
PROVIDERS: PCP Internal Medicine Medical Oncology; Visit Provider Internal Medicine Hypertension Specialist
DX: C61 Malignant neoplasm of prostate (principal); D64.9 Anemia, unspecified; I73.9 Peripheral vascular disease, unspecified; N18.30 Chronic kidney disease, stage 3 unspecified; I10 Essential (primary) hypertension
CPT/HCPCS: 99214

== ENCOUNTER → 2025-04-17 09:58 | Outpatient (BNVA) | payer MEDICARE, SELFPAY | PROVIDERS: PCP Internal Medicine Medical Oncology; Visit Provider Internal Medicine Hypertension Specialist | DX: I10 Essential (primary) hypertension (principal); N18.30 Chronic kidney disease, stage 3 unspecified; D64.9 Anemia, unspecified; I73.9 Peripheral vascular disease, unspecified; R32 Unspecified urinary incontinence; R35.1 Nocturia | CPT/HCPCS: 99212 ==